=== PATIENT | female | born 1980 | race Two or more races ===

== ENCOUNTER 2018-06-17 10:30 | Emergency (ER) | payer OTHER ==
[2018-06-17 10:38] VITALS: BP 124/67; PULSE 71; TEMP 97.8; BMI 24.3
--- NOTE | 2018-06-17 11:42 | PDOC ---
History of Present Illness - General Chief Complaint: Injury Stated Complaint: INJURY Time Seen by Provider: 06/17/18 10:52 History Source: Patient Exam Limitations: No Limitations - History of Present Illness Initial Comments: 06/17/18 11:37 twisted right ankle yesterday no deformity or swelling will xray to r/o fracture ibuprofen for pain Past History - Past Medical History Allergies/Adverse Reactions: Allergies Allergy/AdvReac Type Severity Reaction Status Date / Time No Known Allergies Allergy Verified 06/17/18 10:37 Home Medications: Ambulatory Orders NK [No Known Home Medication] 06/19/16 COPD: No - Immunization History Immunization Up to Date: Yes - Suicide/Smoking/Psychosocial Hx Smoking Status: No Smoking History: Never smoked Have you smoked in the past 12 months: No Number of Cigarettes Smoked Daily: 0 Hx Alcohol Use: No Drug/Substance Use Hx: No Substance Use Type: None Trauma Specific PMHX - Complaint Specific PMHX Arthritis: No Back Injury: No Neck Injury: No Hx Sacro Iliac Joint Dysfunction: No Review of Systems - Review of Systems Able to Perform ROS?: Yes Musculoskeletal: Yes: Symptoms Reported *Physical Exam - Vital Signs Last Vital Signs Temp Pulse Resp BP Pulse Ox 97.8 F 71 18 124/67 100 06/17/18 10:36 06/17/18 10:36 06/17/18 10:36 06/17/18 10:36 06/17/18 10:36 - Physical Exam General Appearance: Yes: Nourished, Appropriately Dressed HEENT: positive: EOMI, ANA, Normal Voice, Pharynx Normal, TM Erythema ( bilateral erythema ). negative: Nasal Congestion, Rhinorrhea Neck: positive: Supple. negative: Tender Respiratory/Chest: positive: Lungs Clear, Normal Breath Sounds. negative: Chest Tender, Respiratory Distress Cardiovascular: positive: Regular Rhythm, Regular Rate Gastrointestinal/Abdominal: positive: Normal Bowel Sounds, Soft. negative: Tender Musculoskeletal: positive: Normal Inspection Extremity: positive: Normal Capillary Refill, Normal Inspection, Normal Range of Motion, Tender (lateral malleolus ttp no swelling, FROM of the ankle nv intact ) Integumentary: positive: Normal Color, Dry, Warm Neurologic: positive: Fully Oriented, Alert, Normal Mood/Affect, Normal Response , Motor Strength 5/5 Procedures - Splinting Oleksandr Bandage: yes, 4" ED Treatment Course - RADIOLOGY Radiology Studies Ordered: Category Date Time Status ANKLE & FOOT-RIGHT* [RAD] Stat Radiology 06/17/18 11:16 Completed Medical Decision Making - Medical Decision Making 06/17/18 12:05 cc: ankle injury to the right ankle will get xray to r/o fracture oleksandr wrap applied, pt ambualting freely no distress *DC/Admit/Observation/Transfer Diagnosis at time of Disposition: Mild ankle sprain Qualifiers: Encounter type: initial encounter Laterality: right Qualified Code(s): S93.401A - Sprain of unspecified ligament of right ankle, initial encounter - Discharge Dispostion Disposition: HOME Condition at time of disposition: Good - Referrals Referrals: Buzz Chavez MD [Staff Physician] - - Patient Instructions Additional Instructions: elevate and apply ice every 2hrs for 20 minutes use the oleksandr wrap at all times except to bathe weight bear as tolerated, if it hurts stay off it follow with or the orthopedist for follow up if symptoms worsen or persist beyond one week take motrin or advil (over the counter) for pain as directed - Post Discharge Activity Forms/Work/School Notes: Back to Work
== END 2018-06-17 12:10 | disposition home or self-care (01) ==
LOC: JERFT 10:30
DX: S93.401A Sprain of unspecified ligament of right ankle, initial encounter (principal); X50.1XXA Overexertion from prolonged static or awkward postures, initial encounter; Y93.89 Activity, other specified; Y92.89 Other specified places as the place of occurrence of the external cause; Y99.0 Civilian activity done for income or pay
CPT/HCPCS: 73610-TC-RT-FY; 73630-TC-RT-FY; 99281-25

== ENCOUNTER 2018-08-13 13:01 | Emergency (ER) | payer OTHER ==
[2018-08-13 13:17] VITALS: BP 144/87; PULSE 90; TEMP 98.2; BMI 23.6
--- NOTE | 2018-08-13 14:46 | PDOC ---
History of Present Illness - General Chief Complaint: Laceration Stated Complaint: INJURY Time Seen by Provider: 08/13/18 13:18 History Source: Patient Exam Limitations: No Limitations Past History - Past Medical History Allergies/Adverse Reactions: Allergies Allergy/AdvReac Type Severity Reaction Status Date / Time No Known Allergies Allergy Verified 08/13/18 13:17 Home Medications: Ambulatory Orders NK [No Known Home Medication] 06/19/16 COPD: No - Immunization History Immunization Up to Date: Yes - Suicide/Smoking/Psychosocial Hx Smoking Status: No Smoking History: Never smoked Have you smoked in the past 12 months: No Number of Cigarettes Smoked Daily: 0 Hx Alcohol Use: No Drug/Substance Use Hx: No Substance Use Type: None *Physical Exam - Vital Signs Last Vital Signs Temp Pulse Resp BP Pulse Ox 98.2 F 90 20 144/87 99 08/13/18 13:16 08/13/18 13:16 08/13/18 13:16 08/13/18 13:16 08/13/18 13:16 - Physical Exam General Appearance: No: Apparent Distress HEENT: positive: Other (Around 2 cm vertical irregular laceration along R upper lip which crosses vermilion repair, no head/neck trauma noted) Neck: positive: Supple Respiratory/Chest: positive: Lungs Clear, Normal Breath Sounds. negative: Respiratory Distress Cardiovascular: positive: Regular Rhythm, Regular Rate, S1, S2. negative: Murmur Moderate Sedation - Procedure Monitoring Vital Signs: Procedure Monitoring Vital Signs Temperature 98.2 F 08/13/18 13:16 Pulse Rate 90 08/13/18 13:16 Respiratory Rate 20 08/13/18 13:16 Blood Pressure 144/87 08/13/18 13:16 O2 Sat by Pulse Oximetry (%) 99 08/13/18 13:16 Procedures - Laceration/Wound Repair Lip Wound Length: to 2.5 cm Wound Explored: clean Wound's Depth, Shape: irregular Irrigated w/ Saline: Yes Betadine Prep: No Anesthesia: 1% Lidocaine Wound Debrided: moderate Wound Repaired With: Sutures Suture Size/Type: 6:0, nylon Number of Sutures: 4 Deep Layer Suture Size/Type: 5:0, other (polysorb) Number of Deep Layer Sutures: 3 Sterile Dressing Applied: No Medical Decision Making - Medical Decision Making 38 y/o F with no sig pmh presents with upper lip laceration after tripping and falling forward. Denies head/neck trauma, LOC. Patient is UTD on tetanus. Laceration repaired Advised to return in 10 days for suture removal. 08/13/18 14:48 *DC/Admit/Observation/Transfer Diagnosis at time of Disposition: Laceration of lip Qualifiers: Encounter type: initial encounter Qualified Code(s): S01.511A - Laceration without foreign body of lip, initial encounter - Discharge Dispostion Disposition: HOME Condition at time of disposition: Good Decision to Admit order: No - Referrals - Patient Instructions Printed Discharge Instructions: DI for Laceration Repair Additional Instructions: Thank you for choosing [facility]. It was a pleasure taking care of you. Keep site clean/dry for next 24 hours Return in 10 days for suture removal Return to the Emergency Department if your symptoms worsen or persist, you have fever, pustular discharge, bleeding, redness or other concerning symptoms. - Post Discharge Activity
== END 2018-08-13 14:51 | disposition home or self-care (01) ==
LOC: JERFT 13:01
PROC: 0CQ03ZZ Repair Upper Lip, Percutaneous Approach (ICD-10-PCS; principal; 2018-08-13)
DX: S01.511A Laceration without foreign body of lip, initial encounter (principal); W18.39XA Other fall on same level, initial encounter; Y93.89 Activity, other specified; Y92.89 Other specified places as the place of occurrence of the external cause; Y99.8 Other external cause status
CPT/HCPCS: 99281-25

== ENCOUNTER 2018-08-18 10:00 | Emergency (ER) | payer OTHER ==
[2018-08-18 10:23] VITALS: BP 120/73; PULSE 71; TEMP 98.1; BMI 23.6
--- NOTE | 2018-08-18 10:53 | PDOC ---
Suture Removal/Wound Check HPI - History of Present Illness Chief Complaint: Suture/Staple Removal(Here) Stated Complaint: SUTURE/STAPLE PROBLEM Time Seen by Provider: 08/18/18 10:45 History Source: Yes: Patient Exam Limitations: Yes: No Limitations Treated at: [facility] Date of Last ED visit: 08/13/18 - Previous ED Treatment Type of procedure performed on last visit: Yes: Laceration Repair Tetanus Immunization: Yes: Up to Date Antibiotics Prescribed: Yes - Onset of Previous Treatment Date of Occurence: 08/13/18 Past History - Past Medical History Allergies/Adverse Reactions: Allergies Allergy/AdvReac Type Severity Reaction Status Date / Time No Known Allergies Allergy Verified 08/13/18 13:17 Home Medications: Ambulatory Orders NK [No Known Home Medication] 06/19/16 COPD: No - Immunization History Immunization Up to Date: Yes - Suicide/Smoking/Psychosocial Hx Smoking Status: No Smoking History: Never smoked Have you smoked in the past 12 months: No Number of Cigarettes Smoked Daily: 0 Hx Alcohol Use: No Drug/Substance Use Hx: No Substance Use Type: None Suture Removal/Wound Check PE - Physical Exam Laceration/Wound Check Symptoms: reports: None Pain Intensity: 0 Current Severity Level: None Maximum Severity Level: None Location of Laceration/Wound: right: Lip (laceration to right upper side of lip) Pain Radiation: None *Review of Systems - Review of Systems Able to Perform ROS?: Yes Constitutional: No: Fever HEENTM: No: Symptoms Reported, Eye Pain, Recent change in vision Respiratory: No: Symptoms reported Cardiac (ROS): No: Symptoms Reported ABD/GI: No: Symptoms Reported Integumentary: Yes: Other (laceration to right side of upper lip with sutures in place. mild opening of laceration wound). No: Erythema All Other Systems: Reviewed and Negative *Physical Exam - Vital Signs Last Vital Signs Temp Pulse Resp BP Pulse Ox 98.1 F 71 16 120/73 100 08/18/18 10:20 08/18/18 10:20 08/18/18 10:20 08/18/18 10:20 08/18/18 10:20 - Physical Exam General Appearance: Yes: Nourished, Appropriately Dressed. No: Apparent Distress HEENT: positive: ANA, Normal ENT Inspection Neck: positive: Supple Respiratory/Chest: negative: Respiratory Distress, Accessory Muscle Use Cardiovascular: positive: Regular Rhythm, Regular Rate Gastrointestinal/Abdominal: negative: Tender Integumentary: positive: Other (well healing 2cm laceration with [address] small 1mm area of wound dehiscense to bottom of laceration. no evidence of wound infection) Moderate Sedation - Procedure Monitoring Vital Signs: Procedure Monitoring Vital Signs Temperature 98.1 F 08/18/18 10:20 Pulse Rate 71 08/18/18 10:20 Respiratory Rate 16 08/18/18 10:20 Blood Pressure 120/73 08/18/18 10:20 O2 Sat by Pulse Oximetry (%) 100 08/18/18 10:20 Medical Decision Making - Medical Decision Making 08/18/18 11:42 Patient with no significant past medication present for wound check status post presented 5 days ago with laceration to right side of upper lip requiring suture placement. Exam shows 2 cm laceration to right side of upper lip with [address] Small area of 1 mm wound dehiscence the bottom of laceration which patient requires closing. Patient advice wound is 5 days old and cannot be closed with sutures. Patient indicated on home wound care. Patient advised to follow-up in 5 days for suture removal as instructed. *DC/Admit/Observation/Transfer Diagnosis at time of Disposition: Laceration of lip Qualifiers: Encounter type: subsequent encounter Qualified Code(s): S01.511D - Laceration without foreign body of lip, subsequent encounter - Discharge Dispostion Disposition: HOME Condition at time of disposition: Stable Decision to Admit order: No - Referrals - Patient Instructions Printed Discharge Instructions: DI for Suture Removal Additional Instructions: Apply bacitracin to wound twice a day. Follow-up in 5 days for suture removal. - Post Discharge Activity
== END 2018-08-18 10:56 | disposition home or self-care (01) ==
LOC: JERFT 10:00
DX: T81.33XA Disruption of traumatic injury wound repair, initial encounter (principal)
CPT/HCPCS: 99281-25

== ENCOUNTER 2018-08-25 03:41 | Emergency (ER) | payer OTHER ==
[2018-08-25 03:51] VITALS: BP 107/62; PULSE 81; TEMP 98; BMI 27.3
--- NOTE | 2018-08-25 04:19 | PDOC ---
Suture Removal/Wound Check HPI - History of Present Illness History Source: Yes: Patient Exam Limitations: Yes: No Limitations Date of Last ED visit: 08/13/18 - Previous ED Treatment Type of procedure performed on last visit: Yes: Laceration Repair Antibiotics Prescribed: No <Narda Chang - Last Filed: 08/25/18 04:27> <Solange Medellin - Last Filed: 08/25/18 23:04> - History of Present Illness Chief Complaint: Suture/Staple Removal(Here) Stated Complaint: SUTURE REMOVAL Time Seen by Provider: 08/25/18 03:52 Past History - Past Medical History COPD: No - Immunization History Immunization Up to Date: Yes - Suicide/Smoking/Psychosocial Hx Smoking Status: No Smoking History: Never smoked Have you smoked in the past 12 months: No Number of Cigarettes Smoked Daily: 0 Information on smoking cessation initiated: No Hx Alcohol Use: No Drug/Substance Use Hx: No Substance Use Type: None <Narda Chang - Last Filed: 08/25/18 04:27> <Solange Medellin - Last Filed: 08/25/18 23:04> - Past Medical History Allergies/Adverse Reactions: Allergies Allergy/AdvReac Type Severity Reaction Status Date / Time No Known Allergies Allergy Verified 08/25/18 03:49 Home Medications: Ambulatory Orders NK [No Known Home Medication] 06/19/16 Suture Removal/Wound Check PE - Physical Exam Laceration/Wound Check Symptoms: denies: None, Pain, Fever, Chills, Redness, Discharge, Worsening Location of Laceration/Wound: right: Lip (healed laceration to R upper lip) <Narda Chang - Last Filed: 08/25/18 04:27> *Physical Exam - Vital Signs Last Vital Signs Temp Pulse Resp BP Pulse Ox 98.0 F 81 18 107/62 100 08/25/18 03:49 08/25/18 03:49 08/25/18 03:49 08/25/18 03:49 08/25/18 03:49 <Narda Chang - Last Filed: 08/25/18 04:27> - Vital Signs Last Vital Signs Temp Pulse Resp BP Pulse Ox 98.0 F 81 18 107/62 100 08/25/18 03:49 08/25/18 03:49 08/25/18 03:49 08/25/18 03:49 08/25/18 03:49 <Solange Medellin - Last Filed: 08/25/18 23:04> Moderate Sedation - Procedure Monitoring Vital Signs: Procedure Monitoring Vital Signs Temperature 98.0 F 08/25/18 03:49 Pulse Rate 81 08/25/18 03:49 Respiratory Rate 18 08/25/18 03:49 Blood Pressure 107/62 08/25/18 03:49 O2 Sat by Pulse Oximetry (%) 100 08/25/18 03:49 <Narda Chang - Last Filed: 08/25/18 04:27> - Procedure Monitoring Vital Signs: Procedure Monitoring Vital Signs Temperature 98.0 F 08/25/18 03:49 Pulse Rate 81 08/25/18 03:49 Respiratory Rate 18 08/25/18 03:49 Blood Pressure 107/62 08/25/18 03:49 O2 Sat by Pulse Oximetry (%) 100 08/25/18 03:49 <Solange Medellin - Last Filed: 08/25/18 23:04> Medical Decision Making - Medical Decision Making 38 y/o F presents for suture removal s/p laceration repair 08/13. Patient states she removed 3 stitches on her own yesterday as she couldn't wait any longer. Denies fever, discharge, bleeding Remaining sutures removed Wound healed Stable for dc 08/25/18 04:20 <Narda Chang - Last Filed: 08/25/18 04:27> - Medical Decision Making The patient was seen and evaluated in conjunction with midlevel provider under my direct supervision, ancillary studies were reviewed. I agree with the plan as outlined by ROBBIN Chang. HPI as outlined. 08/25/18 23:03 <Solange Medellin - Last Filed: 08/25/18 23:04> *DC/Admit/Observation/Transfer <Narda Chang - Last Filed: 08/25/18 04:27> <Solange Medellin - Last Filed: 08/25/18 23:04> Diagnosis at time of Disposition: Visit for suture removal - Discharge Dispostion Disposition: HOME Condition at time of disposition: Stable - Patient Instructions Printed Discharge Instructions: DI for Suture Removal
== END 2018-08-25 04:31 | disposition home or self-care (01) ==
LOC: JER 03:41
DX: Z48.02 Encounter for removal of sutures (principal)
CPT/HCPCS: 99281-25

== ENCOUNTER → 2018-12-17 | Emergency (ER) | payer OTHER | LOC: JER 12:30 ==

== ENCOUNTER 2018-12-28 07:58 | Emergency (ER) | payer SELFPAY ==
[2018-12-28 08:07] VITALS: BP 140/83; PULSE 98; TEMP 98.4; BMI 24.6
[2018-12-28] MEDS ORDERED: ACETAMINOPHEN 325 MG TABLET (FP) PO ONE (08:29)
[2018-12-28] MEDS ORDERED: ACETAMINOPHEN 325 MG TABLET (FP) ONE (08:32)
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
== END 2018-12-28 10:55 | disposition home or self-care (01) ==
LOC: JERFT 07:58
DX: M25.562 Pain in left knee (principal); Y04.2XXA Assault by strike against or bumped into by another person, initial encounter; W18.39XA Other fall on same level, initial encounter; Y93.89 Activity, other specified; Y92.89 Other specified places as the place of occurrence of the external cause; Y99.8 Other external cause status; Y07.03 Male partner, perpetrator of maltreatment and neglect
CPT/HCPCS: 73562-TC-LT-FY; 84703; 99281-25

== ENCOUNTER 2019-01-29 18:33 | Emergency (ER) | payer OTHER ==
[2019-01-29 19:00] VITALS: BP 114/67; PULSE 74; TEMP 98.5; BMI 24.6
[2019-01-29] MEDS ORDERED: KETOROLAC TROMETHAMINE 30 MG/1 ML VIAL IM ONE (19:11)
[2019-01-29] MEDS ORDERED: KETOROLAC TROMETHAMINE 30 MG/1 ML VIAL ONE (19:16)
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
== END 2019-01-29 19:30 | disposition home or self-care (01) ==
LOC: JERFT 18:33 → JER 18:33 → JERFT 19:30
PROC: 2W3RXYZ Immobilization of Left Lower Leg using Other Device (ICD-10-PCS; principal; 2019-01-29)
PROC: 3E0233Z Introduction of Anti-inflammatory into Muscle, Percutaneous Approach (ICD-10-PCS; 2019-01-29)
DX: M25.562 Pain in left knee (principal); X50.1XXA Overexertion from prolonged static or awkward postures, initial encounter; Y93.01 Activity, walking, marching and hiking; Y92.89 Other specified places as the place of occurrence of the external cause; Y99.8 Other external cause status
CPT/HCPCS: 29530; 96372; 99281-25

== ENCOUNTER 2019-03-17 10:46 | Day surgery (SDC) | payer OTHER ==
[2019-03-17 11:30] VITALS: BMI 24.6
[2019-03-17] MEDS ORDERED: EPINEPHrine 1:1,000 1 MG/1 ML - 30ML VIAL (INJECTION) ONE (13:17)
[2019-03-17] MEDS ORDERED: Pregnancy Control Solution IV ONE ×2 (13:20→13:35)
[2019-03-17] MEDS ORDERED: SODIUM CHLORIDE 0.9% P/F 10 ML VIAL IJ ONE (13:36)
[2019-03-17] MEDS ORDERED: MIDAZOLAM HCL 2 MG/2 ML SINGLE DOSE VIAL ONE (13:36)
[2019-03-17] MEDS ORDERED: BUPIVACAINE LIPOSOME/PF (EXPAREL) 266 MG/20 ML VIAL ONE (13:36)
[2019-03-17] MEDS ORDERED: PROPOFOL 20 ML ONE ×3 (14:15→15:17)
[2019-03-17] MEDS ORDERED: SUCCINYLCHOLINE CHLORIDE 200 MG/10 ML VIAL ONE (14:15)
--- NOTE | 2019-03-17 14:23 | OP ---
Operative Note - Note: Operative Date: 03/17/19 Pre-Operative Diagnosis: ACL tear Operation: ACL reconstruction Post-Operative Diagnosis: Same as Pre-op Surgeon: Thomas Grimaldo Major Gifts Officer: Beena Antoine Anesthesia: General Operative Report Dictated: Yes
[2019-03-17] MEDS ORDERED: ONDANSETRON 4 MG/2 ML VIAL ONE (14:29)
[2019-03-17] MEDS ORDERED: DEXAMETHASONE SOD PHOSPHATE 4 MG/1 ML VIAL ONE (14:29)
[2019-03-17] MEDS ORDERED: ceFAZolin SODIUM 1 GM VIAL ONE (14:29)
[2019-03-17] MEDS ORDERED: HYDROmorphone HCL/PF 1 MG/ML AMP ONE (16:43)
[2019-03-17] MEDS ORDERED: PROMETHAZINE HCL 25 MG/1 ML VIAL IVPUSH PRN (16:59)
[2019-03-17] MEDS ORDERED: oxyCODONE HCL 5 MG TABLET PO PRN ×2 (16:59)
[2019-03-17] MEDS ORDERED: ONDANSETRON 4 MG/2 ML VIAL IVPUSH PRN (16:59)
[2019-03-17] MEDS ORDERED: ACETAMINOPHEN 325 MG TABLET (FP) PO SCH (17:00)
[2019-03-17] MEDS ORDERED: PROMETHAZINE HCL 25 MG/1 ML VIAL ONE (17:14)
[2019-03-17 18:15] VITALS: TEMP 98
[2019-03-17 19:58] VITALS: BP 112/61; PULSE 60
--- NOTE | 2019-03-17 19:59 | OP ---
DATE OF OPERATION: 03/17/2019 PREOPERATIVE DIAGNOSIS: Left knee acromioclavicular rupture, medial meniscal tear. POSTOPERATIVE DIAGNOSIS: Left knee acromioclavicular rupture, medial meniscal tear. PROCEDURE: Left knee anterior cruciate ligament reconstruction utilizing patellar tendon autograft, medial meniscal repair. SURGEON: Thomas Grimaldo M.D. CRIMPING MACHINE OPERATOR FOR METAL: Beena Antoine PA-C, whose skillful assistance was necessary for safe and timely performance of this procedure. Ms. Antoine was able to provide limb positioning, drive the camera, assist in graft preparation and harvest, as well as the insertion of the graft and fixation hardware. ANESTHESIA: Regional plus general. POSTOPERATIVE CONDITION: Stable. COMPLICATIONS: None. IMPLANTS: Ar[employer]rex TightRope x1, Arthrex BioComposite interference screw 7 x 24 mm x1, Ar[employer]rex SwiveLock x1. INDICATION: This is a pleasant 38-year-old female who has suffered a twisting injury to the knee. She was found to have an ACL rupture. Treatment options were discussed including nonoperative and operative care. Operative risks were reviewed in detail including bleeding, infection, neurovascular injury, need for further surgery, postoperative pain and stiffness, graft failure to heal or rerupture. We discussed medical risks such as heart attack, stroke, DVT, PE, and . I addressed the use of perioperative antibiotics and DVT prophylaxis. I addressed all the patient's questions and concerns. She voiced understanding and elected to proceed. DESCRIPTION OF PROCEDURE: The patient was brought to the operating room after administration of her regional block in the preoperative holding area. Patient was then placed supine on the operating room table, the left lower extremity was prepped and draped in the usual sterile fashion after administration of anesthesia. Preoperative examination demonstrated full range of motion including 3 degrees of hyperextension and full flexion. She has positive Kole's, grossly positive pivot shift. She has 1+ LCL from her endpoint. The MCL is stable and the PCL is stable. The patient's knee was then marked out. The incision was planned out over the patellar tendon. This was then carried down through skin and subcutaneous tissue. Electrocautery was used to maintain hemostasis. The paratenon was split along the fibers of the patellar tendon. The middle third of the patellar tendon was then chosen and incised with a double-bladed knife 10 mm wide. The oscillating saw was then used to excise triangular bone block 10 x 20 mm in both the tibial and the femoral sides. The graft was then sized for 90 mm length x 9.5 mm diameter on the femoral side and 10 mm on the tibial side. The graft was then prepared on the back table, fastening 1 TightRope through the proximal end and 2 sutures, FiberWire, through the distal end. Concurrently, the arthroscope was inserted into the knee. Examination of patellofemoral joint demonstrated mild superficial articular wear. Passing arthroscope to sternal notch demonstrated the remnants of the ACL with no attachment to the lateral wall of the notch. The arthroscope was passed to medial compartment. Here, medial portal was established with spinal needle localization. The medial compartment was inspected, demonstrating no articular lesions. Meniscus initially appeared satisfactory, however probe was passed and the posterior horn of the medial meniscus was found to have a peripheral tear which was unstable. Initially meniscus was debrided using the shaver. Two Fast-Fix 360 devices were then inserted in horizontal mattress fashion along the posterior horn, securing it back into place. Meniscus was now probed and found to be stable. At this time attention was turned back into the notch. The lateral compartment was dissected, demonstrating no meniscal and no articular lesions. The meniscus was probed and found to be stable. In the notch, a remnant of the ACL was debrided. The anatomic origin of the ACL on the femur was identified at the lateral bifurcate ridge. The probe guide was inserted, and small incision was made laterally in the distal thigh with blunt spreading down to the femur. The trocar was then inserted down to the level of the bone. The FlipCutter device was now drilled into the knee. FlipCutter position was verified and was satisfactory. The FlipCutter was now tunneled and a 9.5 x 25 mm socket was created. The passing suture was placed. Tibial drill guide was now inserted. Here, the guidepin was drilled into the center of the anatomic footprint. This was now overreamed with asize 10 reamer. Passing suture was now passed through here as well. Now, the passing suture was used to retrieve the TightRope through the femoral socket. It was directly visualized. We passed the button through the aperture and seated firmly on the cortex. The graft was now toggled into the femoral socket. The knee was now cycled. The guidepin was now inserted anterior to the tibial bone block. The knee was tapped and a size 7 was chosen. The interference screw was then inserted, achieving excellent bite. The choice was then made to provide backup fixation. A SwiveLock anchor was drilled, tapped and inserted, securing the sutures from the tibial bone block. The knee was then passed through Kole maneuver and was found to be stable. The excess fluid was withdrawn from the knee. The paratenon was approximated using 0 Vicryl. The bone graft from the graft preparation was loaded back into the patella and secured in place with 0 Vicryl as well. The subcutaneous tissue was then approximated using 2-0 Vicryl and 3-0 Vicryl. The skin was closed using 3-0 nylon. Sterile dressing was then placed. The patient was awakened and transferred to recovery room in stable condition. Gabriela BIGGS/[id number] MTDD
== END 2019-03-17 19:50 | disposition home or self-care (01) ==
LOC: FASU 10:46
PROVIDERS: ATTEND Orthopaedic Surgery Sports Medicine
PROC: 0LBR0ZZ Excision of Left Knee Tendon, Open Approach (ICD-10-PCS; 2019-03-17)
PROC: 0SBD4ZZ Excision of Left Knee Joint, Percutaneous Endoscopic Approach (ICD-10-PCS; 2019-03-17)
PROC: 0MRP47Z Replacement of Left Knee Bursa and Ligament with Autologous Tissue Substitute, Percutaneous Endoscopic Approach (ICD-10-PCS; principal; 2019-03-17 14:48)
DX: S83.512A Sprain of anterior cruciate ligament of left knee, initial encounter (principal); S83.242A Other tear of medial meniscus, current injury, left knee, initial encounter; X58.XXXA Exposure to other specified factors, initial encounter; Y93.9 Activity, unspecified; Y92.9 Unspecified place or not applicable
CPT/HCPCS: 29881; 29888; C1713; 84703

== ENCOUNTER 2019-03-26 19:40 | Emergency (ER) | payer OTHER ==
[2019-03-26 19:54] VITALS: BP 113/69; PULSE 84; TEMP 98.8; BMI 24.6
[2019-03-26] MEDS ORDERED: SODIUM CHLORIDE 1,000 ML IV ONE (20:02)
[2019-03-26] MEDS ORDERED: morphine CARPU-JECT 2 MG/1 ML DISP.SYRIN IVPUSH ONE (20:02)
[2019-03-26] MEDS ORDERED: ONDANSETRON 4 MG/2 ML VIAL IVPB ONE (20:02)
[2019-03-26] MEDS ORDERED: ONDANSETRON 4 MG/2 ML VIAL ONE (20:15)
[2019-03-26] MEDS ORDERED: morphine SULFATE 4 MG/ML VIAL ONE (20:33)
[2019-03-26 20:50] LABS: BASO % 0.4 % (0-2.0); EOS % 1.8 % (0-4.5); HEMATOCRIT 35.6 % (32.4-45.2); HEMOGLOBIN 11.8 GM/dl (10.7-15.3); LYMPH % 22.5 % (8-40); MCH 27.8 pg (25.7-33.7); MCHC 33.2 g/dl (32.0-36.0); MEAN CELL VOLUME 83.6 fl (80-96); MEAN PLT VOLUME 8.1 fl (7.5-11.1); MONO % 7.5 % (3.8-10.2); NEUT % 67.8 % (42.8-82.8); PLATELET COUNT 331 K/MM3 (134-434); RBC 4.25 M/mm3 (3.60-5.2); RDW 14.1 % (11.6-15.6); WHITE BLOOD COUNT 9.2 K/mm3 (4.0-10.8)
[2019-03-26 21:09] LABS: ALBUMIN 3.6 g/dl (3.4-5.0); BILIRUBIN,TOTAL 0.4 mg/dl (0.2-1); CALCIUM 9.2 mg/dl (8.5-10); CREATININE 0.7 mg/dl (0.55-1.3); EPITHELIAL CELLS FEW /hpf; POTASSIUM 4.1 mmol/L (3.5-5.1); TOT PROT 7.1 g/dl (6.4-8.2)
--- NOTE | 2019-03-26 21:27 | PDOC ---
Documentation entered by Amara Franco SCRIBE, acting as scribe for Beth Joyner MD. Beth Joyner MD: This documentation has been prepared by the Salvador osorio Aiswarya, SCRIBE, under my direction and personally reviewed by me in its entirety. I confirm that the documentation accurately reflects all work, treatment, procedures, and medical decision making performed by me. History of Present Illness - General Chief Complaint: Pain Stated Complaint: LEFT KNEE PAIN Time Seen by Provider: 03/26/19 19:46 History Source: Patient Exam Limitations: No Limitations - History of Present Illness Initial Comments: 03/26/19 20:40 The patient is a 38 year old female, with no significant PMH, who presents to the emergency department with left knee pain that began last night. The patient states she had a left meniscus surgery on March 17 and endorses associated symptoms of swelling, erythema and pain today. Patient states she only took her oxycodone in the morning because states she gets chills and starts vomiting when she takes it. The patient denies chest pain, shortness of breath, headache and dizziness.Denies nausea, diarrhea and constipation. Denies dysuria, frequency, urgency and hematuria. PAST MEDICAL HISTORY: no significant history PAST SURGICAL HISTORY: no significant history FAMILY HISTORY: no pertinent history SOCIAL HISTORY: Pt lives with family and is employed. MEDICATIONS: reviewed ALLERGIES: As per nursing notes Adult ROS General: No fevers or chills, no weakness, no weight loss HEENT: No change in vision. No sore throat,. No ear pain CardioVascular: No chest pain or shortness of breath Respiratory:No cough, or wheezing. Gastrointestinal: no nausea, vomiting, diarrhea or constipation, No rectal bleeding Genitourinary: No dysuria, hematuria, or frequency Musculoskeletal: +Knee swelling. Neurologic: No headache, vertigo, dizziness or loss of consciousness Psychiatric: nor depression Skin: No rashes or easy bruising Endocrine: no increased thirst or abnormal weight change Allergic: no skin or latex allergy All other systems reviewed and normal Adult Exam: General: Well-nourished well-developed individual, no acute distress HEENT: Throat: Normal, tonsils normal, no erythema or exudate Neck: Supple, no meningeal signs, no lymphadenopathy Eyes::Pupils equal reactive and round, extraocular motion intact Chest: Nontender to palpation Cardiac: S1-S2 normal, regular rate and rhythm, no murmurs rubs or gallops Respiratory: Lungs clear to auscultation bilateral Abdomen: +Epigastric tenderness on palpation. Extremities: Warm, dry, no cyanosis, clubbing, or edema Skin: + Left knee mild swelling erythema and increased warmth . Incision healing well. No dehiscence or purulent discharge. Limited ROM of because of swelling and discomfort. Neurovascular intact. Neuro: Alert and oriented x3, nonfocal exam, grossly intact, normal gait Psych: Normal mood and affect 03/26/19 21:17 Dr. Grimaldo came in and aspirated patient's knee and slowly of fluid was sent for crystals, culture, cell count.. Patient's CBC was normal. Patient discharged will follow-up with Dr. Grimaldo Past History - Past Medical History Allergies/Adverse Reactions: Allergies Allergy/AdvReac Type Severity Reaction Status Date / Time No Known Allergies Allergy Verified 03/26/19 19:46 Home Medications: Ambulatory Orders Aspirin [Aspirin EC] 81 mg PO BID 03/26/19 Cyclobenzaprine HCl [Flexeril 10 mg] 10 mg PO Q8H PRN 03/26/19 Oxycodone HCl/Acetaminophen [Percocet 5-325 mg Tablet] 1 tab PO Q6H PRN Anemia: No Asthma: No Cancer: No Cardiac Disorders: No CVA: No COPD: No CHF: No Dementia: No Diabetes: No GI Disorders: No Disorders: No HTN: No Hypercholesterolemia: No Liver Disease: No Seizures: No Thyroid Disease: No - Surgical History Abdominal Surgery: No Appendectomy: No Cardiac Surgery: No Cholecystectomy: No Lung Surgery: No Neurologic Surgery: No Orthopedic Surgery: No - Immunization History Immunization Up to Date: Yes - Suicide/Smoking/Psychosocial Hx Smoking Status: No Smoking History: Never smoked Have you smoked in the past 12 months: No Number of Cigarettes Smoked Daily: 0 Information on smoking cessation initiated: No Hx Alcohol Use: No Drug/Substance Use Hx: No Substance Use Type: Alcohol Hx Substance Use Treatment: No *Physical Exam - Vital Signs Last Vital Signs Temp Pulse Resp BP Pulse Ox 98.8 F 84 18 113/69 100 03/26/19 19:40 03/26/19 19:40 03/26/19 19:40 03/26/19 19:40 03/26/19 19:40 ED Treatment Course - LABORATORY CBC & Chemistry Diagram: 03/26/19 20:35 03/26/19 20:35 - ADDITIONAL ORDERS Additional order review: Laboratory Results 03/26/19 03/26/19 03/26/19 20:35 20:35 20:35 Sodium 136 Potassium 4.1 Chloride 101 Carbon Dioxide 29 Anion Gap 6 L BUN 9.0 Creatinine 0.7 Est GFR (CKD-EPI)AfAm 129.19 Est GFR (CKD-EPI)NonAf 111.47 Random Glucose 86 Calcium 9.2 Total Bilirubin 0.4 AST 181 H ALT 204 H Alkaline Phosphatase 67 Total Protein 7.1 Albumin 3.6 Urine Color Yellow Urine Appearance Clear Urine pH >= 9.0 H Urine Protein Negative Urine Glucose (UA) Negative Urine Ketones Negative Urine Blood Trace-intact Urine Nitrite Negative Urine Bilirubin Negative Urine Urobilinogen 1.0 Ur Leukocyte Esterase Negative Urine RBC 5-10 Urine WBC 0-2 Ur Transition Epith Cell Few Urine HCG, Qual Negative 03/26/19 20:35 RBC 4.25 MCV 83.6 MCHC 33.2 RDW 14.1 MPV 8.1 Neutrophils % 67.8 Lymphocytes % 22.5 Monocytes % 7.5 Eosinophils % 1.8 Basophils % 0.4 - Medications Given in the ED: ED Medications Discontinued Medications Generic Name Dose Route Start Last Admin Trade Name Freq PRN Reason Stop Dose Admin Sodium Chloride 1,000 mls @ 1,000 mls/hr 03/26/19 20:02 03/26/19 20:19 Normal Saline - IV 03/26/19 21:01 1,000 mls/hr .Q1H ONE Administration Morphine Sulfate 2 mg 03/26/19 20:02 03/26/19 20:37 Morphine Injection - IVPUSH 03/26/19 20:03 2 mg ONCE ONE Administration Ondansetron HCl 8 mg 03/26/19 20:02 03/26/19 20:19 Zofran Injection IVPB 03/26/19 20:03 8 mg ONCE ONE Administration *DC/Admit/Observation/Transfer Diagnosis at time of Disposition: Knee pain, left Qualifiers: Chronicity: acute Qualified Code(s): M25.562 - Pain in left knee - Discharge Dispostion Disposition: HOME Condition at time of disposition: Stable Decision to Admit order: No - Referrals - Patient Instructions Additional Instructions: Continue to take your pain medications as prescribed for pain. For any further nausea or vomiting take Zofran 1 tablet as often as 3 times a day. Return to the emergency department immediately with ANY new, persistent or worsening symptoms. Continue any medications as previously prescribed by your physician. You should follow up with your primary doctor as soon as possible regarding today's emergency department visit. . Please make sure your doctor reviews the results of your emergency evaluation. Thank you for coming to the Emergency Department today for your care. It was a pleasure to see you today. Please note that your evaluation is INCOMPLETE until you follow-up with your doctor. - Post Discharge Activity
--- NOTE | 2019-03-26 21:30 | PN ---
Progress Note (short form) - Note Progress Note: 38y F here for pain, fever after L knee ACL reconstruction has had discomfort since surgery managed by percocet, cyclobenzaprine pt notes some nausea, vomiting also notes elevated fevers no numbness or tingling PE: AF VSS LLE wounds CDI no drainage moderate effusion focal warmth no erythema calves soft NT ehl fhl ta g s intact sensation intact to LT 2+ DP Labs: wbc 9 esr,crp pending A: L knee s/p ACL reconstruction -reviewed today's findings with pt and her sister -clinical picture does not suggest infection at this time -given focal warmth, effusion, recommended aspiration though this most likely represents normal post op inflammation -pt elected to proceed procedure: knee was prepped with chlorhexidine 18g needle inserted w sterile technique 40cc red translucent fluid withdrawn dressing placed fluid sent for cx, gram stain, cell count, crystals -will follow up labs but do not anticipate need for any intervention at this time -fever most likely due to GI upset/possible viral syndrome/dehydration -partial suture removal performed in ER, will remove remainder at her follow up later this coming week
[2019-03-27 11:52] LABS: BF WBC & OTHER NUCLEATED CELLS 2516 /mm3
[2019-03-27 14:29] LABS: BODY FLUID MACROPHAGES 3 %; BODY FLUID MONOCYTE 12 %; BODY FLUID PLASMA CELL 5 %; BODYL FLD EOSINOPHIL 2 %
== END 2019-03-26 21:41 | disposition home or self-care (01) ==
LOC: FER 19:40
PROC: 3E033NZ Introduction of Analgesics, Hypnotics, Sedatives into Peripheral Vein, Percutaneous Approach (ICD-10-PCS; principal; 2019-03-26)
PROC: 3E033GC Introduction of Other Therapeutic Substance into Peripheral Vein, Percutaneous Approach (ICD-10-PCS; 2019-03-26)
PROC: 3E0337Z Introduction of Electrolytic and Water Balance Substance into Peripheral Vein, Percutaneous Approach (ICD-10-PCS; 2019-03-26)
DX: M25.562 Pain in left knee (principal)
CPT/HCPCS: 36415; 80053; 81003; 81015; 84560; 84703; 85025; 85651; 86140; 87070; 87075; 87205; 89060; 99285-25; J7030

== ENCOUNTER 2019-05-12 21:55 | Emergency (ER) | payer OTHER ==
[2019-05-12 22:04] VITALS: BP 123/85; PULSE 74; TEMP 97.2; BMI 25.4
--- NOTE | 2019-05-12 22:15 | PDOC ---
History of Present Illness - General Chief Complaint: Injury Stated Complaint: HEAD INJURY Time Seen by Provider: 05/12/19 21:58 History Source: Patient Exam Limitations: No Limitations - History of Present Illness Initial Comments: 05/12/19 22:15 This is a 39-year-old female who comes in complaining of a small laceration to her forehead. Patient was walking the dogs when the dogs pulled her over and she hit her head causing a small laceration to her forehead. Patient did not pass out. Patient denies any neck pain, headache, nausea, vomiting or any other complaints. Patient's last tetanus was approximate 5 years ago. Allergies: as per nursing notes Past Medical History: none Social history: Lives with family. No smoking. No alcohol. No illicit drugs. Surgical history: None General: No fevers or chills, no weakness, no weight loss HEENT: No change in vision. No sore throat,. No ear pain forehead laceration+ CardioVascular: no chest discomfort. No shortness of breath Respiratory:No cough, or wheezing. Gastrointestinal: no nausea, vomiting, diarrhea or constipation, No rectal bleeding Genitourinary: No dysuria, hematuria, or frequency Musculoskeletal: No joint or muscle pain or swelling Neurologic: No headache, vertigo, dizziness or loss of consciousness Psychiatric: nor depression Skin: No rashes or easy bruising Endocrine: no increased thirst or abnormal weight change Allergic: no skin or latex allergy All other systems reviewed and normal GENERAL: The patient is awake, alert, and fully oriented, in no acute distress. HEAD: There is approximately a 1 cm superficial laceration to the middle of the forehead. There is no tenderness on palpation of the cervical spine EYES: Pupils equal, round and reactive to light, extraocular movements intact, sclera anicteric, conjunctiva clear. EXTREMITIES:atraumatic, Normal range of motion, no edema. NEUROLOGICAL: Normal speech, normal gait. Nonfocal normal neuro exam PSYCH: Normal mood, normal affect. SKIN: Warm, Dry, normal turgor, no rashes or lesions noted Procedure note laceration repair with Dermabond Laceration was cleaned with peroxide and closed with Dermabond patient tolerated well . Past History - Past Medical History Allergies/Adverse Reactions: Allergies Allergy/AdvReac Type Severity Reaction Status Date / Time No Known Allergies Allergy Verified 03/26/19 19:46 Home Medications: Ambulatory Orders NK [No Known Home Medication] 05/12/19 Anemia: No Asthma: No Cancer: No Cardiac Disorders: No CVA: No COPD: No CHF: No Dementia: No Diabetes: No GI Disorders: No Disorders: No HTN: No Hypercholesterolemia: No Liver Disease: No Seizures: No Thyroid Disease: No - Surgical History Abdominal Surgery: No Appendectomy: No Cardiac Surgery: No Cholecystectomy: No Lung Surgery: No Neurologic Surgery: No Orthopedic Surgery: No - Immunization History Immunization Up to Date: Yes - Suicide/Smoking/Psychosocial Hx Smoking Status: No Smoking History: Never smoked Have you smoked in the past 12 months: No Number of Cigarettes Smoked Daily: 0 Hx Alcohol Use: No Drug/Substance Use Hx: No Substance Use Type: Alcohol Hx Substance Use Treatment: No Trauma Specific PMHX - Complaint Specific PMHX Arthritis: No Back Injury: No Neck Injury: No Hx Sacro Iliac Joint Dysfunction: No *DC/Admit/Observation/Transfer Diagnosis at time of Disposition: Laceration of forehead Qualifiers: Encounter type: initial encounter Qualified Code(s): S01.81XA - Laceration without foreign body of other part of head, initial encounter - Discharge Dispostion Disposition: HOME Condition at time of disposition: Stable Decision to Admit order: No - Referrals - Patient Instructions Printed Discharge Instructions: DI for Laceration Repair With Dermabond Additional Instructions: Review and follow the Dermabond instructions. Keep it dry for 72 hours and do not use any petroleum based products on the glue as it will cause the glue to come off early. For the pain take Tylenol 1000 mg as often this 3-4 times a day if needed. Someone to check on you once tonight during the night. You should be arousable to your normal level of arousability for that time of the night. If you have been vomiting, had a seizure, or you are unable to be aroused or there is a change in your mental status call 911 go back to the nearest emergency department. Followup with your primary care doctor - Post Discharge Activity
== END 2019-05-12 22:24 | disposition home or self-care (01) ==
LOC: FER 21:55
PROC: 0HQ1XZZ Repair Face Skin, External Approach (ICD-10-PCS; principal; 2019-05-12)
DX: S01.81XA Laceration without foreign body of other part of head, initial encounter (principal); W01.198A Fall on same level from slipping, tripping and stumbling with subsequent striking against other object, initial encounter; Y93.K1 Activity, walking an animal; Y92.89 Other specified places as the place of occurrence of the external cause
CPT/HCPCS: 99281-25

== ENCOUNTER 2019-07-18 17:44 | Emergency (ER) | payer OTHER ==
--- NOTE | 2019-07-18 17:48 | PDOC ---
Rapid Medical Evaluation Time Seen by Provider: 07/18/19 17:48 Medical Evaluation: Allergies Allergy/AdvReac Type Severity Reaction Status Date / Time No Known Allergies Allergy Verified 03/26/19 19:46 07/18/19 17:48 I have performed a brief in-person evaluation of this patient. The patient presents with a chief complaint of: post op suture issue breast Pertinent physical exam findings:stable and in NAD, non-focal I have ordered the following: provider to determine The patient will proceed to the ED for further evaluation.
[2019-07-18 17:49] VITALS: BP 119/72; PULSE 90; TEMP 98.3; BMI 25.4
--- NOTE | 2019-07-18 19:30 | PDOC ---
History of Present Illness - General Chief Complaint: Suture/Staple Removal (other) Stated Complaint: SUTURE REMOVAL Time Seen by Provider: 07/18/19 17:48 History Source: Patient Exam Limitations: No Limitations Past History - Travel Traveled outside of the country in the last 30 days: No Close contact w/someone who was outside of country & ill: No - Past Medical History Allergies/Adverse Reactions: Allergies Allergy/AdvReac Type Severity Reaction Status Date / Time No Known Allergies Allergy Verified 07/18/19 17:49 Home Medications: Ambulatory Orders NK [No Known Home Medication] 05/12/19 Anemia: No Asthma: No Cancer: No Cardiac Disorders: No CVA: No COPD: No CHF: No Dementia: No Diabetes: No GI Disorders: No Disorders: No HTN: No Hypercholesterolemia: No Liver Disease: No Seizures: No Thyroid Disease: No - Surgical History Abdominal Surgery: No Appendectomy: No Cardiac Surgery: No Cholecystectomy: No Lung Surgery: No Neurologic Surgery: No Orthopedic Surgery: No - Immunization History Immunization Up to Date: Yes - Psycho Social/Smoking Cessation Hx Smoking Status: No Smoking History: Never smoked Have you smoked in the past 12 months: No Number of Cigarettes Smoked Daily: 0 Hx Alcohol Use: No Drug/Substance Use Hx: No Substance Use Type: Alcohol Hx Substance Use Treatment: No Review of Systems - Review of Systems Able to Perform ROS?: Yes Comments:: 07/18/19 19:36 CONSTITUTIONAL: Absent: fever, chills, diaphoresis, generalized weakness, malaise, loss of appetite SKIN: Present: Suture absent: rash, itching, pallor NEUROLOGIC: Absent: headache, focal weakness or paresthesias, dizziness, unsteady gait, seizure, mental status changes, bladder or bowel incontinence PSYCHIATRIC: Absent: anxiety, depression, suicidal or homicidal ideation, hallucinations. Is the patient limited Macedonian proficient: No *Physical Exam - Vital Signs Last Vital Signs Temp Pulse Resp BP Pulse Ox 98.3 F 90 18 119/72 98 07/18/19 17:45 07/18/19 17:45 07/18/19 17:45 07/18/19 17:45 07/18/19 17:45 - Physical Exam Comments: 07/18/19 19:36 GENERAL: The patient is awake, alert, and fully oriented, in no acute distress. HEAD: Normal with no signs of trauma. EYES: Pupils equal, round and reactive to light, extraocular movements intact, sclera anicteric, conjunctiva clear. EXTREMITIES: Normal range of motion, no edema. NEUROLOGICAL: Normal speech, normal gait. PSYCH: Normal mood, normal affect. SKIN: 1 Prolene suture present under the right breast. No surrounding erythema or purulent fluid. 1 Monocryl tail sticking through the skin along the lateral aspect of the left breast. Warm, Dry, normal turgor, no rashes or lesions noted. Medical Decision Making - Medical Decision Making 07/18/19 19:37 Patient's 39-year-old female who presents to the ER today for suture removal after a bilateral breast reduction and lift on June 16. She states that he had procedure done in [place]. She notes that she did have sutures taken out in [place] however she believes some were left behind. She states that the one under her right breast is not healing well. Denies fevers, chills, pain to the area, redness around the site or purulent drainage. A/P: Suture removal On exam patient with 1 Prolene stitch under the right breast at the surface of the skin. The suture was removed 1 Monocryl tail present at the left lateral breast. This was clipped to be flush with the skin. Absorbable suture Overall no obvious signs of secondary infection. Discharge home with plastics follow-up as needed I discussed the physical exam findings, ancillary test results and final diagnoses with the patient. I answered all of the patient's questions. The patient was satisfied with the care received and felt comfortable with the discharge plan and treatment plan. The Patient agrees to follow up with the primary care physician/specialist within 24-72 hours. Return precautions were given. Discharge - Discharge Information Problems reviewed: Yes Clinical Impression/Diagnosis: Visit for suture removal Condition: Stable Disposition: HOME - Admission No - Follow up/Referral Referrals: Kashif Love MD [Staff Physician] - Bryon Delgadillo MD [Staff Physician] - - Patient Discharge Instructions Patient Printed Discharge Instructions: DI for Suture Removal Additional Instructions: You had your sutures removed today. The other suture that we clipped should dissolve on its own. Should you have any further issues please follow-up with plastics referrals have been provided for you. Return to the ER for fever, worsening pain or if you have any changes in your symptoms. - Post Discharge Activity
== END 2019-07-18 19:36 | disposition home or self-care (01) ==
LOC: JERFT 17:44
DX: Z48.817 Encounter for surgical aftercare following surgery on the skin and subcutaneous tissue (principal); Z48.02 Encounter for removal of sutures
CPT/HCPCS: 99282-25

== ENCOUNTER 2019-10-20 19:36 | Emergency (ER) | payer OTHER ==
[2019-10-20 19:46] VITALS: BP 122/82; PULSE 90; TEMP 100.8; BMI 25.2
--- NOTE | 2019-10-20 20:07 | PDOC ---
Documentation entered by Ezekiel Link SCRIBE, acting as scribe for Natalia John MD. Natalia John MD: This documentation has been prepared by the Fariba osorio Angel, SCRIBE, under my direction and personally reviewed by me in its entirety. I confirm that the documentation accurately reflects all work, treatment, procedures, and medical decision making performed by me. History of Present Illness - General Chief Complaint: Cold Symptoms Stated Complaint: COLD SYMPTOMS Time Seen by Provider: 10/20/19 19:41 History Source: Patient Exam Limitations: No Limitations - History of Present Illness Initial Comments: 10/20/19 20:23 The patient is a 39 year old female with no significant past medical history who presents to the ED with cold symptoms since this morning. Patient states she just returned home from [place] and woke up this morning with a bad cough that progressively got worse. Patient states her son is also sick and says he may have gave her something. Patient also states she has not been vaccinated for the flu. Patient denies any nausea or vomiting Past History - Travel Traveled outside of the country in the last 30 days: Yes If so, where?: [place] - Past Medical History Allergies/Adverse Reactions: Allergies Allergy/AdvReac Type Severity Reaction Status Date / Time No Known Allergies Allergy Verified 07/18/19 17:49 Home Medications: Ambulatory Orders NK [No Known Home Medication] 05/12/19 Anemia: No Asthma: No Cancer: No Cardiac Disorders: No CVA: No COPD: No CHF: No Dementia: No Diabetes: No GI Disorders: No Disorders: No HTN: No Hypercholesterolemia: No Liver Disease: No Seizures: No Thyroid Disease: No - Surgical History Abdominal Surgery: No Appendectomy: No Cardiac Surgery: No Cholecystectomy: No Lung Surgery: No Neurologic Surgery: No Orthopedic Surgery: No - Immunization History Immunization Up to Date: Yes - Psycho Social/Smoking Cessation Hx Smoking Status: No Smoking History: Never smoked Have you smoked in the past 12 months: No Number of Cigarettes Smoked Daily: 0 Hx Alcohol Use: No Drug/Substance Use Hx: No Substance Use Type: Alcohol Hx Substance Use Treatment: No Review of Systems - Review of Systems Able to Perform ROS?: Yes Comments:: 10/20/19 20:23 CONSTITUTIONAL: Absent: +Fever/Chills. no fatigue EYES: Absent: visual changes ENT: Absent: ear pain, no sore throat CARDIOVASCULAR: Absent: chest pain, no palpitations RESPIRATORY: Absent: +cough. no SOB GI: Absent: abdominal pain, no nausea, no vomiting, no constipation, no diarrhea GENITOURINARY: Absent: dysuria, no frequency, no hematuria MUSKULOSKELETAL: Absent: back pain, no arthralgia, no myalgia SKIN: Absent: rash NEURO: Absent: headache *Physical Exam - Vital Signs Last Vital Signs Temp Pulse Resp BP Pulse Ox 100.8 F H 90 16 122/82 100 10/20/19 19:37 10/20/19 19:37 10/20/19 19:37 10/20/19 19:37 10/20/19 19:37 - Physical Exam 10/20/19 20:24 GENERAL: Well-appearing, well-nourished. No apparent distress. HEENT: Normocephalic, atraumatic. PERRL, EOM intact. CARDIOVASCULAR: Normal S1, S2. Regular rate and rhythm. PULMONARY: Clear to auscultation bilaterally. ABDOMEN: Soft, non-distended, non-tender. EXTREMITIES: Normal ROM in all four extremities. No gross deformities. SKIN: Warm, dry. No rash NEUROLOGICAL: No focal neurological deficits. Medical Decision Making - Medical Decision Making 10/20/19 21:13 pt presents to the ED complaining of a one day history of fever, body aches and cough. Son is sick as well. REcent travel to [place]. Symptoms are most consistent with viral URI. Offered tamiflu to patient, who declined. Will discharge patient home with instructions to return to the ED for worsening symptoms. Discharge - Discharge Information Problems reviewed: Yes Clinical Impression/Diagnosis: Viral URI with cough Condition: Good Disposition: HOME - Admission No - Follow up/Referral - Patient Discharge Instructions Patient Printed Discharge Instructions: DI for Viral Upper Respiratory Infection -- Adult Additional Instructions: you came to the ED because of cough, fever and body aches which are most likely caused by a virus. Make sure to drink plenty of fluids and get plenty of rest. you can take ibuprofen for fever and body aches. Return to the ED for severe shortness of breath, fever that is persistent for longer than 7 days, severe nausea and vomiting, other new or worsening symptom. - Post Discharge Activity
== END 2019-10-20 20:13 | disposition home or self-care (01) ==
LOC: FER 19:36
DX: J06.9 Acute upper respiratory infection, unspecified (principal); R05 Cough
CPT/HCPCS: 99283-25

== ENCOUNTER 2019-10-30 10:47 | Emergency (ER) | payer OTHER ==
[2019-10-30 10:57] VITALS: BP 122/75; PULSE 83; TEMP 99.2; BMI 24.5
--- NOTE | 2019-10-30 11:29 | PDOC ---
History of Present Illness - General Chief Complaint: Cold Symptoms Stated Complaint: COUGH,SORE THROAT Time Seen by Provider: 10/30/19 11:00 History Source: Patient Exam Limitations: No Limitations - History of Present Illness Initial Comments: 10/30/19 11:24 CHIEF COMPLAINT: 39-year-old female with no past medical history presents complaining of sore throat and fever with pain on swallowing. HISTORY OF PRESENT ILLNESS: 39-year-old female recently traveled to [place], came back 12 days ago. She picked up her son from her mother's house in [place], and he was ill with fever, sore throat, and cough. She was sick last week and then recovered. This week she presents complaining of recurrent sore throat for the last couple of days, associated with pain on swallowing, and cough. She had a high fever (subjective) this morning. She did not take her temperature. There is no nausea, vomiting, or diarrhea. There is no skin rash. There is no dysuria or frequency. REVIEW OF SYSTEMS: GENERAL/CONSTITUTIONAL: Positive fever and chills. No weakness. No weight change. HEAD, EYES, EARS, NOSE AND THROAT: No visual symptoms. No ear pain or discharge. Positive sore throat with pain on swallowing. See HPI. CARDIOVASCULAR: No chest pain or shortness of breath. RESPIRATORY: Positive cough. No wheezing or hemoptysis. No shortness of breath. GASTROINTESTINAL: No nausea, vomiting, diarrhea or constipation. No rectal bleeding. GENITOURINARY: No dysuria, frequency, or change in urination. MUSCULOSKELETAL: No joint or muscle swelling or pain. No neck or back pain. SKIN AND BREASTS: No rash or easy bruising. NEUROLOGIC: No headache, vertigo, loss of consciousness, or loss of sensation. PSYCHIATRIC: No depression or anxiety. ENDOCRINE: No increased thirst. No abnormal weight change. HEMATOLOGIC/LYMPHATIC: No anemia, easy bleeding, or history of blood clots. ALLERGIC/IMMUNOLOGIC: No hives or skin allergy. No latex allergy. Past History - Past Medical History Allergies/Adverse Reactions: Allergies Allergy/AdvReac Type Severity Reaction Status Date / Time No Known Allergies Allergy Verified 10/30/19 10:48 Home Medications: Ambulatory Orders Amoxicillin/Potassium Clav [Augmentin 875-125 Tablet] 1 each PO BID #20 tablet 10/30/19 Ibuprofen 600 mg PO ONCE 10/30/19 Anemia: No Asthma: No Cancer: No Cardiac Disorders: No CVA: No COPD: No CHF: No Dementia: No Diabetes: No GI Disorders: No Disorders: No HTN: No Hypercholesterolemia: No Liver Disease: No Seizures: No Thyroid Disease: No - Surgical History Abdominal Surgery: No Appendectomy: No Cardiac Surgery: No Cholecystectomy: No Lung Surgery: No Neurologic Surgery: No Orthopedic Surgery: No - Immunization History Immunization Up to Date: Yes - Psycho Social/Smoking Cessation Hx Smoking Status: No Smoking History: Never smoked Have you smoked in the past 12 months: No Number of Cigarettes Smoked Daily: 0 Information on smoking cessation initiated: No Hx Alcohol Use: No Drug/Substance Use Hx: No Substance Use Type: Alcohol Hx Substance Use Treatment: No *Physical Exam - Vital Signs Last Vital Signs Temp Pulse Resp BP Pulse Ox 99.2 F 83 20 122/75 98 10/30/19 10:47 10/30/19 10:47 10/30/19 10:47 10/30/19 10:47 10/30/19 10:47 - Physical Exam 10/30/19 11:26 GENERAL: The patient is awake, alert, and fully oriented, in no acute distress. She has occasional cough. HEAD: Normal with no signs of trauma. EYES: Pupils equal, round and reactive to light, extraocular movements intact, sclera anicteric, conjunctiva clear. ENT: Ears normal. TMs normal. Nares patent. Oropharynx with posterior erythema and whitish exudates bilaterally. No trismus. Uvula is normal and midline. NECK: Normal range of motion, supple without lymphadenopathy, JVD, or masses. LUNGS: Breath sounds equal, clear to auscultation bilaterally. No wheezes, and no crackles. HEART: Regular rate and rhythm, normal S1 and S2 without murmur, rub or gallop. ABDOMEN: Soft, nontender, normoactive bowel sounds. No guarding, no rebound. No masses. EXTREMITIES: Normal range of motion, no edema. No clubbing or cyanosis. No cords, erythema, or tenderness. NEUROLOGICAL: Cranial nerves II through XII grossly intact. Normal speech, normal gait. PSYCH: Normal mood, normal affect. SKIN: Warm, Dry, normal turgor, no rashes or lesions noted. ED Treatment Course - RADIOLOGY Radiology Studies Ordered: Category Date Time Status CHEST PA & LAT [RAD] Stat Radiology 10/30/19 11:21 Ordered Medical Decision Making - Medical Decision Making 10/30/19 12:23 39-year-old female presents with sore throat for a few days, was also sick last week which resolved. Today was having sensation of fever. On examination, the patient has exudative pharyngitis. There is no lymphadenopathy Chest x-ray PA and lateral is clear. This is based upon my initial review. Radiology follow-up procedure activated upon discharge. Rapid strep test is positive for strep. Patient will be treated with Augmentin, Tylenol, and fluids. She is stable for discharge. Discharge - Discharge Information Problems reviewed: Yes Clinical Impression/Diagnosis: Streptococcal pharyngitis Condition: Stable Disposition: HOME - Admission No - Follow up/Referral - Patient Discharge Instructions Patient Printed Discharge Instructions: DI for Strep Throat Additional Instructions: Today you were evaluated for a sore throat and fever symptoms. The strep test is positive. Take Augmentin antibiotic twice a day for 10 days. Take Tylenol 2 tablets every 4 hours as needed for sore throat pain or fever. Drink plenty of fluids to maintain good hydration. Follow-up with your primary care physician. Return to the emergency department for any severe or progressive symptoms. - Post Discharge Activity
[2019-10-30] MEDS ORDERED: ACETAMINOPHEN 325 MG TABLET (FP) PO ONE (12:22)
[2019-10-30] MEDS ORDERED: AMOX TR/POT CLAV 875MG/125MG TABLETS (FP) PO ONE (12:22)
[2019-10-30] MEDS ORDERED: ACETAMINOPHEN 325 MG TABLET (FP) ONE (12:23)
[2019-10-30] MEDS ORDERED: AMOX TR/POT CLAV 875MG/125MG TABLETS (FP) ONE (12:23)
== END 2019-10-30 12:35 | disposition home or self-care (01) ==
LOC: FER 10:47
DX: J02.0 Streptococcal pharyngitis (principal)
CPT/HCPCS: 71046-TC-FY; 87880; 99284-25

== ENCOUNTER 2020-05-16 20:57 | Emergency (ER) | payer OTHER ==
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
[2020-05-16 21:03] VITALS: BMI 27.7
--- OUTSIDE RECORDS SUMMARY | 2020-05-16 21:19 | XMS ---
:1980 Author Organization [facility] Care Team Providers Name Role Phone Jonh Torres Unavailable SONIA ROBLES Unavailable Unavailable Buzz Villalba Unavailable KASIA NUGENT Unavailable Unavailable Ezekiel Mendoza (R) Unavailable Re-disclosure Warning The records that you are about to access may contain information from federally- assisted alcohol or drug abuse programs. If such information is present, then the following federally mandated warning applies: This information has been disclosed to you from records protected by federal confidentiality rules (42 CFR part 2). The federal rules prohibit you from making any further disclosure of this information unless further disclosure is expressly permitted by the written consent of the person to whom it pertains or as otherwise permitted by 42 CFR part 2. A general authorization for the release of medical or other information is NOT sufficient for this purpose. The Federal rules restrict any use of the information to criminally investigate or prosecute any alcohol or drug abuse patient.The records that you are about to access may contain highly sensitive health information, the redisclosure of which is protected by Article 27-F of the [place] State Public Health law. If you continue you may haveaccess to information: Regarding HIV / AIDS; Provided by facilities licensed or operated by the [facility] Office of Mental Health; or Provided by the [facility] Office for People With Developmental Disabilities. If such information is present, then the following [facility] mandated warning applies: This information has been disclosed to you from confidential records which are protected by state law. State law prohibits you from making any further disclosure of this information without the specific written consent of the person to whom it pertains, or as otherwise permitted by law. Any unauthorized further disclosure in violation of state law may result in a fine or long term sentence or both. A general authorization for the release of medical or other information is NOT sufficient authorization for further disclosure. Allergies and Adverse Reactions Type Description Substance Reaction Status Data Source(s ) SYSTEMIC NO KNOWN ALLERGIES NO KNOWN ALLERGIES [facility] Encounters Encounter Providers Location Date Indications Data Source(s ) Outpatient Attender: KASIA 05/04/2020 [facility] Maddie NUGENT 11:27:20 AM Family [facility] EDT Patient admitted. Outpatient Attender: KASIA CASTROEFREN 05/04/2020 11:25:22 AM [facility] Patient admitted. Outpatient Attender: KASIA CASTROEFREN 03/30/2020 02:56:50 PM [facility] Patient admitted. Outpatient Attender: KASIA CASTROEFREN 03/30/2020 02:52:44 PM [facility] Patient admitted. Outpatient Attender: SONIA ROBLES 03/09/2020 05:51:48 PM [facility] Patient admitted. Outpatient 02/22/2020 10:33:31 AM EDT [facility] [place] Patient admitted. Outpatient Attender: Buzz Villalba 02/20/2020 04:25:10 PM [facility] For EDT Family Health Patient admitted. Outpatient 02/13/2020 09:34:06 AM EDT [facility] Patient admitted. Outpatient 02/13/2020 09:33:35 AM EDT [facility] [place] Patient admitted. Outpatient Attender: Buzz Villalba 02/07/2020 12:39:56 PM [facility] For EDT Family Health Patient admitted. Outpatient 02/01/2020 11:21:20 AM EDT [facility] Patient admitted. Outpatient 01/27/2020 08:43:38 AM EDT [facility] Patient admitted. Outpatient 01/27/2020 08:43:23 AM EDT [facility] Patient admitted. Outpatient 01/26/2020 12:12:56 PM EDT [facility] Patient admitted. Outpatient Attender: Ezekiel Mendoza 01/26/2020 12:00:00 AM EDT [facility] Patient admitted. Outpatient Attender: Ezekiel Mendoza 01/17/2020 01:12:53 PM EDT [facility] Patient admitted. Outpatient Attender: Ezekiel Mendoza 01/10/2020 10:06:34 AM EDT The [facility] 01/10/2020 12:30:33 PM Health EDT Patient admitted. Outpatient Attender: Buzz Villalba 01/06/2020 01:00:04 PM The [facility] [place] - 01/09/2020 11:33:38 Family [facility] AM EDT Patient admitted. Outpatient Attender: Jonh 12/27/2019 11:11:07 AM The [facility] - 12/29/2019 Family H ealt 05:56:58 PM EDT Patient admitted. Outpatient Attender: Jonh 02/01/2019 04:20:40 PM The [facility] Patient admitted. Outpatient Attender: Jonh 02/01/2019 04:01:41 PM The [facility] Patient admitted. Outpatient Attender: Jonh 02/01/2019 02:50:56 PM The [facility] Patient admitted. Outpatient Attender: Jonh 01/21/2019 11:35:04 AM The [facility] - 01/21/2019 Family H ealt 03:11:25 PM EDT Patient admitted. Immunizations Vaccine Date Status Description Data Source(s) Tdap 01/21/2019 completed Tdap 01/21/2019, The Ins titute 12:00:00 AM EDT 05/28/2015 For Family Health IIV3. This is 05/28/2015 completed Influenza, 05/28/2015 The [facility] one of two 12:00:00 AM EDT Seasonal, For Family codes Injectable Health replacing CVX 15, which is being retired. Tdap 05/28/2015 completed Tdap 01/21/2019, The Ins titute 12:00:00 AM EDT 05/28/2015 [facility] Medications Medication Brand Start Product Dose Route Administrative [facility] Indications Reaction Description Data Name Date Form Instructions Instructions Source(s) Ondansetron Ondans 02/19/ 4 mg Oral active Nausea and T michele ONE The 4 MG etron 2019 vomiting tablet (4 mg In stitute Disintegrat 4 MG 12:00: during total) by For Family ing Oral Oral 00 AM mouth bear [facility] Health Tablet TABLET EDT as needed Ondansetron DISPER for nausea 4 MG Oral SIBLE TABLET DISPERSIBLE Nausea and vomiting during Take ONE tablet (4 mg total) by mouth da corazon as needed for nausea Docusate docusate 02/07/2020 100 Oral completed Constipatio n, Take ONE The Sodium 100 sodium 12:00:00 AM mg unspecified capsule [facility] MG Oral 100 MG EDT constipation (100 mg For Family Capsule Oral type total) Health docusate capsule by mouth sodium 100 3 MG Oral (three) capsule times a day for 10 days Constipation, unspecified constipation t ype Take ONE capsule (100 mg total) by mouth 3 (three) times a day for 10 days Ondansetron 4 Ondansetron 01/26/2020 4 Oral completed Daniel sea and Take The MG 4 MG Oral 12:00:00 AM mg vomiting ONE [facility] Disintegrating TABLET EDT during tablet For Family Oral Tablet DISPERSIBLE ( 4 mg Health Ondansetron 4 total) MG Oral TABLET by DISPERSIBLE mouth daily as needed for nausea Nausea and vomiting during Take ONE tablet (4 mg total) by mouth da corazon as needed for nausea Pyridoxine pyridoxine 01/10/2020 25 Oral active Encounter Take ONE The Hydrochloride 25 MG Oral 12:00:00 AM mg for tablet [facility] 25 MG Oral tablet EDT supervision (25 m g For Family Tablet of other total) by pyridoxine 25 normal mouth MG Oral tablet in ev courtney 12 first (twelve) trimester hours as needed for nausea Encounter for supervision of other xu l in first trimester Take ONE tablet (25 mg total) by mouth e very 12 (twelve) hours as needed for nausea Cholecalciferol Cholecalciferol 12/29/20191999 Oral a ctive Vitamin D Take ONE The 1999 Oral (EQL VITAMIN D3) 12:00:00 AM U de ficiency capsule [facility] Capsule 50 MCG (1999) EDT (2,00 0 For Family Cholecalciferol Oral Cap [facility] (EQL VITAMIN D3) total) 50 MCG (1999 UT) by mouth Oral Cap daily Vitamin D deficiency Take ONE capsule (2,000 Units total) by mouth daily [id number] 12/29/2019 1 Oral active Less than Take The Vit-Fe 12:00:00 AM {tbl} 8 weeks ONE In stitute Fumarate-FA EDT gestation tablet F or Family (GOODSENSE of by Health mouth VITAMINS) daily 28-0.8 MG Oral Tab Less than 8 weeks gestation of Take ONE tablet by mouth daily Cholecalciferol Cholecalciferol 02/01/20191999 Oral c ompleted Vitamin D Take ONE The 1999 Oral (EQL VITAMIN D3) 12:00:00 AM U de ficiency capsule [place] Capsule 2000 units Oral EDT (2,000 For Family Cholecalciferol Cap Units Hea lth (EQL VITAMIN D3) total) 2000 units Oral by mouth Cap daily Vitamin D deficiency Take ONE capsule (2,000 Units total) by mouth daily Cholecalciferol Cholecalciferol 02/01/2019 13141 Oral c ompleted Vitamin D Take ONE The Oral (VITAMIN D3) 12:00:00 AM U defic iency capsule [place] Capsule 92474 units Oral EDT (50,0 00 For Family Cholecalciferol Cap Units Hea lth (VITAMIN D3) total) 72001 units Oral by mouth Cap once a week Then 2000 units by mouth once daily Vitamin D deficiency Take ONE capsule (50,000 Units total) by mouth once a week Then 2000 units by mouth once daily Cholecalciferol Cholecalciferol 02/01/2019 12236 Oral a borted Vitamin D Take ONE The Oral (VITAMIN D3) 12:00:00 AM U defic iency capsule [place] Capsule 36246 units Oral EDT (50,0 00 For Family Cholecalciferol Cap Units Hea lth (VITAMIN D3) total) 72593 units Oral by mouth Cap once a week Then 2000 units by mouth once daily Vitamin D deficiency Cholecalciferol Cholecalciferol 02/01/2019 2000 Oral a borted Vitamin D Take ONE The 1999 Oral (EQL VITAMIN D3) 12:00:00 AM U de ficiency capsule [place] Capsule 2000 units Oral EDT (2,000 For Family Cholecalciferol Cap Units Hea lth (EQL VITAMIN D3) total) 2000 units Oral by mouth Cap daily Vitamin D deficiency Norgestimate-Ethinyl 61124-849-53 01/21/2019 1 Oral compl eted Acne Take ONE The Estradiol (ORTHO 12:00:00 AM {tbl} vulgarisEn counter tablet [facility] TRI-CYCLEN MINDI) EDT for initial by mouth For Family 0.18/0.215/0.25 MG-25 prescription of daily Health MCG Oral Tab contraceptive (be gin pills the first Thursday of your menses) Acne vulgaris Encounter for initial prescription of co ntraceptive pills Take ONE tablet by mouth daily (thursday of your menses) Insurance Providers Payer name Policy type Policy ID Covered Covered democrat's Policy P avani / Coverage democrat ID relationship to Murphy Inf ormation type murphy POLLY [id number] SP [id number] 200 HEALTH NON CAP POLLY CARE Medicaid Mgd [id number] Care [place] [id number] Self [id number] POLLY CARE [id number] Self [id number] MEDICAID [place] [id number] Self [id number] POLLY [id number] SP [id number] 200 HEALTH NON CAP POLLY [id number] SP [id number] 200 HEALTH NON CAP MEDICAID [id number] SP [id number] [place] Medicaid 125 125 SELF PAY SP INSURANCE Problems, Conditions, and Diagnoses Code Display Name Description Problem Type Effective Data Dates Source(s) O09.521 Multigravida of Multigravida of [id number] 01/26/2020 The advanced maternal advanced maternal 12:00:00 AM [facility] [place] age in first age in first EDT For Family trimester trimester Health Z87.51 History of premature History of premature [id number] 01/10 The delivery delivery 12:00:00 AM [place] EDT For Family Health Z98.891 History of History of [id number] 020 The section section 12:00:00 AM [place] EDT For Family Health Z34.90 Supervision of Supervision of [id number] 01/11/2020 The normal normal 12:00:00 AM [place] EDT For Family Health E55.9 Vitamin D deficiency Vitamin D deficiency [id number] 02/01 The 12:00:00 AM [place] EDT For Family Health R87.610 Atypical squamous Atypical squamous [id number] 02/01/2019 The cell changes of cell changes of 12:00:00 AM Ins titute undetermined undetermined EDT For Family significance (ASCUS) significance (ASCUS) Health on cervical cytology on cervical cytology with negative human with negative human papilloma virus papilloma virus (HPV) test result (HPV) test result Care Care Diagnosis 05/04/2020 The 11:27:20 AM [place] EDT For Family Health Appointment Reminder Appointment Reminder Diagnosis 03/09 The Call Call 05:51:48 PM [facility] [place] EDT For [facility] Referral Referral Diagnosis 03/09/2020 The 05:51:48 PM [place] EDT For [facility] Z34.81 Encounter for Encounter for Diagnosis 02/20/2020 The supervision of other supervision of other 05:13 :33 PM [facility] normal , normal , EDT For Family first trimester first trimester Heal th O21.9 Vomiting of Vomiting of Diagnosis 02/20/2020 The , , 04:25:10 PM [facility] [place] unspecified unspecified EDT For [facility] Routine Routine Diagnosis 02/20/2020 Th e Visit Visit 04:25:10 PM [facility] [place] EDT For [facility] K59.00 Constipation, Constipation, Diagnosis 02/07/2020 The unspecified unspecified 12:39:56 PM [facility] [place] EDT For [facility] Constipation Constipation Diagnosis 02/07/2020 The 12:39:56 PM [place] EDT For [facility] O09.521 Supervision of Supervision of Diagnosis 01/26/2020 The elderly elderly 11:15:24 AM [facility] [place] multigravida, first multigravida, first EDT For Family trimester trimester Health Video Visit Video Visit Diagnosis 01/25/2020 The 12:09:40 PM [place] EDT For [facility] Z87.51 Personal history of Personal history of Diagnosis 020 The pre-term labor pre-term labor 11:21:08 AM Oumari lidia EDT For [facility] Z98.891 History of uterine History of uterine Diagnosis 0 The scar from previous scar from previous 11:20:52 AM [facility] surgery surgery EDT For [facility] N93.9 Abnormal uterine and Abnormal uterine and Diagnosis 01/09 The vaginal bleeding, vaginal bleeding, 10:06:34 AM [facility] [place] unspecified unspecified EDT For [facility] Initial Initial Diagnosis 01/10/2020 Th e Visit Visit 10:06:34 AM [place] EDT For Family Health O20.9 Hemorrhage in early Hemorrhage in early Diagnosis 020 The , , 01:00:04 PM [place] unspecified unspecified EDT For Family Health Z32.01 Encounter for Encounter for Diagnosis 01/06/2020 The test, test, 01:00:04 PM Ins titute result positive result positive EDT For Family Health Z3A.01 Less than 8 weeks Less than 8 weeks Diagnosis 12/27/2019 The gestation of gestation of 11:11:07 AM [place] EDT For Family Health Z34.90 Encounter for Encounter for Diagnosis 12/27/2019 The supervision of supervision of 11:11:07 AM Faiza murillo normal , normal , EDT For Family unspecified, unspecified, Health unspecified unspecified trimester trimester E55.9 Vitamin D Vitamin D Diagnosis 02/01/2019 The deficiency, deficiency, 04:01:30 PM [facility] [place] unspecified unspecified EDT For Family Health Call During Clinic Call During Clinic Diagnosis 9 The Hours Hours 02:50:56 PM [place] EDT For Family Health Results Results Diagnosis 02/01/2019 The 02:50:56 PM [place] EDT For Family Health L70.0 Acne vulgaris Acne vulgaris Diagnosis 01/21/2019 The 11:35:04 AM [place] EDT For Family Health Z30.011 Encounter for Encounter for Diagnosis 01/21/2019 The initial prescription initial prescription 11:35 :04 AM [place] [facility] of contraceptive of contraceptive EDT Fo r Family pills pills Health Z11.3 Encounter for Encounter for Diagnosis 01/21/2019 The screening for screening for 11:35:04 AM Instit[facility] te infections with a infections with a EDT For Family predominantly sexual predominantly sexual Health mode of transmission mode of transmission Z12.4 Encounter for Encounter for Diagnosis 01/21/2019 The screening for screening for 11:35:04 AM Institu te malignant neoplasm malignant neoplasm EDT For Family of cervix of cervix Health Z11.4 Encounter for Encounter for Diagnosis 01/21/2019 The screening for human screening for human 11:35:0 4 AM [facility] immunodeficiency immunodeficiency EDT Fo r Family virus [HIV] virus (HIV) Health Z23 Encounter for Encounter for Diagnosis 01/21/2019 The immunization immunization 11:35:04 AM [place] EDT For Family Health Z71.7 Human Human Diagnosis 01/21/2019 The immunodeficiency immunodeficiency 11:35:04 AM nstitute virus [HIV] virus (HIV) EDT For [facility] Z00.00 Encounter for Encounter for Diagnosis 01/21/2019 The general adult general adult 11:35:04 AM Institu te medical examination medical examination EDT For Family without abnormal without abnormal He alth findings findings CLINICAL DOCUMENTATION IMPROVEMENT SPECIALIST Exam CLINICAL DOCUMENTATION IMPROVEMENT SPECIALIST Exam Diagnosis 01/21/2019 The 11:35:04 AM [place] EDT For [facility] Physical Physical Diagnosis 01/21/2019 The 11:35:04 AM [place] EDT [facility] [id number] Nausea and vomiting Diagnosis The during [facility] [id number] Constipation, Diagnosis The unspecified [facility] [place] constipation type For [facility] [id number] Nausea and vomiting Diagnosis The during [facility] [id number] Encounter for Diagnosis The supervision of other Inst itute normal [facility] Health [id number] Less than 8 weeks Diagnosis The gestation of [facility] [id number] Vitamin D deficiency Diagnosis [facility] [id number] Vitamin D deficiency Diagnosis [facility] [id number] Vitamin D deficiency Diagnosis [facility] [id number] Vitamin D deficiency Diagnosis [facility] [id number] Vitamin D deficiency Diagnosis [facility] [id number] Acne vulgaris Diagnosis [facility] [id number] Encounter for Diagnosis The initial prescription Inst itute of contraceptive For [facility] ly pills Health Surgeries/Procedures Procedure Description Date Indications Data Source(s) HEMOGLOBIN HEMOGLOBIN Routine 01/10/2020 Encounter 01/10/2020 En counter The ELECTROPHORESIS ELECTROPHORESIS 10:38 AM for 10:38:0 0 AM for [facility] EDT supervision EDT supervision For Family of other of other Health normal normal in i n first first trimester trimester Encounter for supervision of other xu l in first trimester HCG, HCG, Routine 01/10/2020 Encounter 01/10/2020 Encounte r The QUANTITATIVE QUANTITATIVE 10:38 AM for 10:38:00 AM f or [facility] EDT supervision EDT supervision For Family of other of other Health normal normal in i n first first trimester trimester Encounter for supervision of other xu l in first trimester ANTIBODY ANTIBODY Routine 01/06/2020 Encounter 01/06/[address] The SCREEN SCREEN 2:30 PM EDT for 02:30:00 PM for [facility] (INDIRECT (INDIRECT supervision EDT supervis ion For Family KALYANI) KALYANI) of other of other Health normal normal in i n first first trimester trimester Encounter for supervision of other xu l in first trimester 4TH GEN HIV 4TH GEN HIV Routine 01/06/2020 Encounter 01/06/2020 Encounter The TEST-IFH TEST-IFH 2:30 PM EDT for 02:30:00 PM for [facility] RECOMMENDED RECOMMENDED supervision EDT supe rvision For Family of other of other Health normal normal in i n first first trimester trimester Encounter for supervision of other xu l in first trimester HEPATITIS HEPATITIS Routine 01/06/2020 Encounter 01/06/2020 Enco unter The C ANTIBODY C ANTIBODY 2:30 PM EDT for 02:30:00 PM fo r [facility] W/ REFLEX W/ REFLEX supervision EDT supervis ion For Family RT PCR RT PCR of other of other Health (REQUIRES (REQUIRES normal normal 2 VIALS) 2 VIALS) in in first first trimester trimester Encounter for supervision of other xu l in first trimester QUANTIFERON QUANTIFERON Routine 01/06/2020 Encounter 01/06/2020 Encounter The GOLD TB GOLD TB 2:30 PM EDT for 02:30:00 PM for [facility] supervision EDT supervision For Family of other of other Health normal normal in i n first first trimester trimester Encounter for supervision of other xu l in first trimester RUBELLA, RUBELLA, Routine 01/06/2020 Encounter 01/06/[address] The IGG IGG 2:30 PM EDT for 02:30:00 PM for [facility] supervision EDT supervision For Family of other of other Health normal normal in i n first first trimester trimester Encounter for supervision of other xu l in first trimester HEP B HEP B Routine 01/06/2020 Encounter for 01/06/2020 Enco unter The SURFACE SURFACE 2:30 PM EDT supervision 02:30:00 PM for [facility] AG AG of other EDT supervision For Family (HBSAG) (HBSAG) normal of other Health in normal first in trimester first trimester Encounter for supervision of other xu l in first trimester HCG, HCG, Routine 01/06/2020 First 01/06/2020 First Th e QUANTITATIVE QUANTITATIVE 2:30 PM EDT trimester 02:30:00 PM trimester [facility] bleeding EDT bleeding For [facility] First trimester bleeding GC/CHLAMYDIA, GC/CHLAMYDIA, Routine 01/06/2020 Encounter 020 Encounter The SWAB SPECIMEN SWAB SPECIMEN 2:30 PM EDT for 02:30:00 PM for [facility] (BIOREFERENCE (BIOREFERENCE supervision EDT supervision For Family ONLY) ONLY) of other of other Health normal normal in i n first first trimester trimester Encounter for supervision of other xu l in first trimester CBC WITH CBC WITH Routine 01/06/2020 Encounter 01/06/[address] The DIFFERENTIAL DIFFERENTIAL 2:30 PM EDT for 02:30:00 P M for [facility] AND PLATELETS AND PLATELETS supervision EDT supervision For Family of other of other Health normal normal in i n first first trimester trimester Encounter for supervision of other xu l in first trimester GC/CHLAMYDIA, GC/CHLAMYDIA, 01/06/2020 020 The APTIMA URINE APTIMA URINE 2:30 PM EDT test 02:30:00 P M test [facility] (BIORE) (BIOREF) positive EDT positive For Family Health test positive ABO ABO Routine 01/06/2020 Encounter 01/06/2020 Encounte r The GROUPING GROUPING 2:30 PM EDT for 02:30:00 PM for [facility] AND RHO(D) AND RHO(D) supervision EDT superv ision For Family TYPING TYPING of other of other Health normal normal in i n first first trimester trimester Encounter for supervision of other xu l in first trimester LEAD, LEAD, Routine 01/06/2020 Encounter for 01/06/2020 Enco unter The BLOOD BLOOD 2:30 PM EDT supervision 02:30:00 PM for [facility] (ADULT (ADULT of other EDT supervision For Family BIOREF BIOREF normal of other Health ONLY) ONLY) in normal first in trimester first trimester Encounter for supervision of other xu l in first trimester 25 25 Routine 01/06/2020 Vitamin D 01/06/2020 Vitamin D The HYDROXY HYDROXY 2:30 PM EDT deficiency 02:30:00 PM defic iency [facility] VITAMIN D VITAMIN D EDT For Family Health Vitamin D deficiency CULTURE, CULTURE, Routine 01/06/2020 Encounter 01/06/[address] The URINE URINE 2:30 PM EDT for 02:30:00 PM for [facility] [place] supervision EDT supervision For Family of other of other Health normal normal in i n first first trimester trimester Encounter for supervision of other xu l in first trimester VARICELLA, VARICELLA, Routine 01/06/2020 Encounter 01/06/2020 En counter The IGG IGG 2:30 PM EDT for 02:30:00 PM for [facility] [place] supervision EDT supervision For Family of other of other Health normal normal in i n first first trimester trimester Encounter for supervision of other xu l in first trimester URINALYSIS URINALYSIS Routine 01/06/2020 Encounter 01/06/2020 En counter The (COMPLETE) (COMPLETE) 2:30 PM EDT for 02:30:00 PM fo r [facility] supervision EDT supervision For Family of other of other Health normal normal in i n first first trimester trimester Encounter for supervision of other xu l in first trimester RPR RPR Routine 01/06/2020 Encounter for 01/06/2020 Enco unter for The 2:30 PM EDT supervision of 02:30:00 PM s upervision of [facility] other normal EDT other xu l For Family in i n Health first first trimester trimester Encounter for supervision of other xu l in first trimester MEASLES, MEASLES, Routine 01/06/2020 Encounter 01/06/[address] The IGG IGG 2:30 PM EDT for 02:30:00 PM for [facility] [place] supervision EDT supervision For Family of other of other Health normal normal in i n first first trimester trimester Encounter for supervision of other xu l in first trimester Routine 01/06/2020 test 01/06/2020 Encounter for The (URINE) IN (URINE) IN 1:36 PM EDT positive 01:36:00 PM test, [facility] HOUSE HOUSE Encounter for EDT result Fo r Family test, positive Health result positive test pos itive Encounter for test, result pos itive test positive HIV 1 <td ID="[id number]">HIV 1 & 01/21/2019 Encounte r for The & 2 2</td><td>Routine</td><td>01/21/2019 1:18 05:18:00 PM human [place] PM EDT</td><td><paragraph>Encounter for EDT i mmunodeficiency For Family human immunodeficiency virus (HIV) virus (HIV) Health counseling</paragraph></td><td><paragraph counseling styleCode="header">Results for this procedure are in the <content styleCode="[id number]">results section</content>.</paragraph></td> Encounter for human immunodeficiency vir us (HIV) counseling US PG UTER F&MAT DETAILED FTL US PG UTER F&MAT DETAILED FTL [facility] [place] For XM 1ST GE* XM 1ST GE* [facility] MEASLES, IGG MEASLES, IGG [facility] [place] [facility] HEPATITIS C ANTIBODY W/ HEPATITIS C ANTIBODY W/ [facility] [place] For REFLEX RT PCR REFLEX RT PCR (REQUIRES 2 F [facility] VIALS) 25 HYDROXY VITAMIN D 25 HYDROXY VITAMIN D [facility] GC/CHLAMYDIA, SWAB SPECIMEN GC/CHLAMYDIA, SWAB SPECIMEN [facility] [place] For (BIOREFERENCE ONLY) (BIOREFERENCE ONLY) [facility] 4TH GEN HIV TEST-IFH 4TH GEN HIV TEST-IFH [facility] [place] [facility] RECOMMENDED RECOMMENDED [facility] LEAD, BLOOD (ADULT BIOREF LEAD, BLOOD (ADULT BIOREF [facility] [place] For ONLY) ONLY) [facility] VARICELLA, IGG VARICELLA, IGG [facility] URINALYSIS (COMPLETE) URINALYSIS (COMPLETE) [facility] CULTURE, URINE CULTURE, URINE [facility] RPR RPR [facility] or [facility] ANTIBODY SCREEN (INDIRECT ANTIBODY SCREEN (INDIRECT [facility] [place] [facility] KALYANI) KALYANI) [facility] ABO GROUPING AND RHO(D) ABO GROUPING AND RHO(D) [facility] [place] [facility] TYPING TYPING [facility] HEP B SURFACE AG (HBSAG) HEP B SURFACE AG (HBSAG) [facility] RUBELLA, IGG RUBELLA, IGG [facility] or [facility] CBC WITH DIFFERENTIAL AND CBC WITH DIFFERENTIAL AND [facility] [place] For PLATELETS PLATELETS [facility] HCG, QUANTITATIVE HCG, QUANTITATIVE [facility] UNLISTED IMMUNOLOGY QUANTIFERON GOLD TB T [facility] PG UTER R-T IMG TRVG US PG UTER R-T IMG TRVG [facility] (URINE) IN HOUSE (URINE) IN HOUSE [facility] US NUCHAL TRANSLUCENCY US NUCHAL TRANSLUCENCY [facility] [place] For 1ST GESTATION 1ST GESTATION [facility] CONSULT TO OBSTETRICS CONSULT TO OBSTETRICS [facility] CONSULT TO GENETICS CONSULT TO GENETICS [facility] HEMOGLOBIN ELECTROPHORESIS HEMOGLOBIN ELECTROPHORESIS [facility] CYSTIC FIBROSIS PROFILE CYSTIC FIBROSIS PROFILE [facility] SPINAL MUSCULAR ATROPHY SPINAL MUSCULAR ATROPHY [facility] [place] For (CARRIER TESTING) (CARRIER TESTING) [facility] FRAGILE X, PCR RFX [place] FRAGILE X, PCR RFX [facility] BLOT BLOT [facility] Results ID Date Data Source [id number] 05/04/2020 11:26:27 AM EDT [facility] Name Value Range Interpretation Description Data Sup porting Document(s) Code Source(s) MODEL OB The ALMYMs0sTa YDWkWb57/TDQoxID [place] Jay7FiSBml STf7YXzgSITmH7Hj For Family SML4tR1xM EN5MAtKDoYsYyTmUC Health ExMTEyNjIy VIU4TuRyPjtyBN2n QUE6ZVfZLh IwMjAwOTExMTEyNj WaHMD6EbEz GrwsA5CzQQUtytxZ xCtwETL8e8 FovBUzH37ytF2pHL Tnx95eZZtf ID4+DQplbmRvYmoN CjQgMCBvYm oNCiAgPDwvRmlsdG VtEE2NqFD6 HAFsZ71wSYNbOTQq L9YbIYJzGA M+Uy2LDOInpXCjGV 8ZObhY7P1d m2e9Nx3+M/cf8DGd fX6Nh3Yp64 4f7yaJnWJGKnyw5Z Yi8vvbOQOh ynZ9v/4AAiCxsILE 2eV4ciub25 dod4qHL5RSmAZo// k32c+SIAiI +Cv2V7eQDz4Qi/6F jOiZHQoY49 l3HjxxYHgBmZe2vz V2nzVhfZq+ TYkmTEkf8Q+vCUtj ssfyiIxnr8 Y/kPE/PdIiMw0lDG UCEzHN0pdO by2VVEP8k3nohzXV Xm4GjhW7S9 yKigq28jjxFfC3y8 jYSd90N3f8 Nx4rezrU6uPHNvwz X0tSzGVgcq 6SGCXYIdQfoz0R7E NLCoESXla6 XLR3JMWrD1Uio0kf btnMOT6J56 9RQ//PxbSrB37Tz0 E0bxraH9S3 xpr8O4tWFBjePchp TX9F3L8SOO R8QaGGbnyGMcpCLm UYiiEUUyjS 54g/GagpJA4ta8nq pKi/PVQFF3 419nk5JKRrFd5Ch0 hU9tblyZdw vYSxFPDOP+Wwy78d 6C/oZRelTd u2bupsCQiZ2mXxzr 8oHYRBGGxl rGXs/JyBCQK7hYTU 0zRuaPwAsg fyN9sgzwD2HehkLD XWW0WxERMJ HmxisK/tOzQxX5nC PtsjNiKp92 xpOXDwqJA5phvByU v7vzVotWZT cQOqphqSP5hF9NFE ZJRG9lha85 W4oVoePfdWT0RmxG nlS4YkjU3q qIty/eUHLHeyMEms D+9RcjZf3o Asb+ppzucFciyGEI 7JSA6VJMhb UgELKwoh5U5K/I+4 t5snOPB1Rn SzrTjNNo79mMfdju J3QjhwhnKE ce1sA9zi84frKr1s PjKwiALD2Q 2Ft/C5hfWwyOcJYI n4X2JRXqTf dPXza7On7WwtfGEJ jSZTzCqnQZ RQVOYWHNuniw9wAF FTNjRmIoI+ 7BYDs6bQepavMqyV pAat/zQZUh rSPphBmzyp1/Mlp7 fSV9eZP3no SxS36JgGWJCdq3vb j3FdVNaEKm rNX9NR66cGA4SAFO gBJYL0MhQp AP9bRAzGQ/jOnSS+ gsyEsu5Cbg xdM39TG6DZ7mqchb 61OqYweghm zwNcOhw9fDhCZE/e euBCbeOADK w4q3J6vVDnt5YpXa md2XefF0C3 5pf0o3GbrLbfhNIm tXomsKECL8 7mxrK77m6Qwvlgf/ TAuYbfbksF Qe7jArir251ixjoO azI1+xf38+ YS900GgmCS6hhlEo 4JyIvuEUR1 E/U6zhd8xN7PayQU GLoedmT8sL ChUhbzq+TZFz7BXL kho2K8lFyY 2WuN5omWimmozUri 7fkwD10vvX kgra5FIVlwRKMoO0 KsOANYITmf q4kJN6glZoxgZjpm b94ElE5srS 3y+uesuCrIFZr+PA uV/rRZEGDr pymNlIFQ/IVvgIWp MhAHaejBQs TX4nbW7NJdvKpS4R I9z6Y8WIne SH7h9ZJd1Y62VGI7 c97Q9KLfzy EMV/MviYkq9NRdKi iCdYy6AfUr escR4kcuR8SKPsft JmnWh3koDp 3YIODrKk+e0XCVIM fL+eZto9hU vT92d1uk8nc/N0TC +LwJ+2KYlC r1hmZzdNEsm6hn2v r731VVsI5I aUO0R2HXtZPrELvL iskGmc0ohq r72siV8i3GeeE6xF pDhH0DOLdH a4YJ6Rk03X7C1Z2Y 1CaHtBLmTZ o+F/V6ev509/fz2W va6ohJBEDR Z6uakF3z8uL7XY+e lzKUMcPowW mVkEE9MtxKOEE2r9 k95HjPLcCd robClLHVX0UEXAfZ vblaQyzq6v e1i3PRnzTkrAOHId wcQCtQrXXn bpAJqmy2AXC9Pj/c uJHGs7DA33 woe882UV4IKqtu2I BRBS+Fcc5c FjdYL8EClHuJKAq1 4Wfo/BaafZ Bfahch+L8IyGuDpG PWoaolwlst /+OLJHM3pQAvXYaZ 10HpH/BSqz iqayeLUjv9JVivu9 wCx5AC2FN7 itY5bbusTiwT3GxK JBcONSm6RC i7am5Pud33+NPHSz KryoLwaTPk 7SwAbF7xubQm9Hq4 cduB1MLO5Y TdfirbAubO/M2288 2IP7ssuXSn 5i4Q4JMYLExoXr53 zksvxUSp2B WlfuqqPmclWGUMPX J5u+1p4xNw B612WiVKYwakBhDf WGhC+JyjTD 9FtXHucTORxWnVJj QM3YkiOK0s vyEAx9ihFtkc/w0g 9Hffam0zox N1Iis5BKNg7pU3t4 w5uurnbZpE nscZNulN0uJaMt+5 Ou3BssUshh q8JHO385TMRsawMt al9VtvFlID 8FRKYGoOaZqTvSyW jXDKN/jr1X eX5Muwy7DTrOFoDN dGwnKGZMTC EEKNrns1LB5xH7u2 Gb7/hGcgaZ dW5qTJKRkZc3reXH 1D0Npghv2l /drD9g+NAR4jm4O6 GahhiyzgqI HdtIttZkcFj6WZS7 uO857ezKej pLvuW8yPjKGOEk2Y zfYsFb1WNF +ZWDTGE19Mjqj6B8 VVsVoVM/H4 On3K21HKvcdE/8KO MNu4QspoML 3E2vuVNwZxfIyxpj iSg+szmdR1 CizEhutQesF8HYVg 1PAvr0Jn9c st6CIRr5teaqQJZm 0/aSill157 a+yT54cqFFRPu6l5 0QmpbrJO9e 0uYqCBff01Yv0Unp KZoefGy6NF TLCxpVdVl8j8vMAY gQzq+XXJbz yyo9RwRiBwjhLBhB qU/jGZTvkQ u49XznDCQVr2pzoY eVB4jseZhW H07uPyCY7yRSvThF eL1AlbFj5T DHW0gsyDgDRX2oOW YOI5tYV65s dQWss2nqiAju3EnA QXeMeFeOK3 QT3XAYgtSBIEHMci +XTqyuNaLN wwnEWod2uaD8l4lS EzJ2cif85w JmmL8u7ujzLpcrnd anIvqLCmhC +xbUtmIjOAbht8G9 qsivhhZ0M2 WLtELitoAmk7MlhW JW06bsqHjC mpppSiTvlK4fT0rx J70//yDqvz GGqKgdC7CLj37EdT nDLWnCrls4 V4m4v0X54irfRf93 tYbORFI5tB 6KVZQ+rKkVOLLHpp i1j7MouzD2 sR7wu5RhJIfz3gPi PelJwySw6r iu+NIHOiN5EZgXTB 1hyKB+xqbC tj+VCSFCi84I5QuG 69Og8O1T+k GezvP3l6R9xND+mh tRISI3wO9h o2moyco1FNXXbCbd ei5pTJ+jm4 BAoNBTBSgkvsMy5j eXlGqY/SpI Weva07EmrZhnO5Kn rt48B2llia Dg+F7HxJ4uylM1ty qcnNZEZCUl eIudFWQglcWRSzmt GAYWk87FIT Xfz8Bw4xZw2x85k0 X8JRxjF9ln ueAU5p78OnC9wsP8 J5MAQ7v0cT 7yXFly6xf1NPvBEM z0Jv+4yaCm s/WyUQGuISl6MDJD uuvlusyVG1 vOWTzssfgvpafFEu WsTC8WU6DX vf+LRBFd/L0EfeNz EyTuzokjyg vUanDbbZuyKjSXmN 2F/I4PZls6 MAEropd7V6g+EJng 0gD59QvEoD I9noqMgdtFun7Zf2 VCfsfcXTI0 wmJkxNOUhsyg31G3 lCPL/5WEzQ T5euqEhr+Kc5s6Eo i8Oz9/jBKR M03Ge+tUOOt13Adu DoBS01H5Z9 sY5motIF9E+UsCiS Enrx0Rx70R do44L6zxqDKa92KW 1BYImWHbgu /FV+iEq27yXY5eOs DaATZwCbHt GZKNGKbpVhg6e7iw IylrFoP/A8 ALSts+Xyrix+omm8 z2V1QIHJxI Y5K/7EzwWTHcLRcI JbP2Wg2Qu7 AhTBY8XfC0M1vXR1 zMrButA5SK s8CUOKO4Vsm5p76w /Fxpmc+c9P Jv9kh1IsajkYOfdR Yha3qVkrWP 8yqfpCHxCvTefq8d vwMfiFdv1R 8/XV9mgu3gS59l0/ EalMDR6WZY 73trTSwwVGu0IBI+ Sg75TKDdQw 1za+N7D4opj8hvtR C0Hz7+i0Of Xif/1N/u9MzQEf+s GyRliQSwTl hsKl/suaTF0WfjI3 uEC1qxfu2/ wv0sFpCekBJAgTvp 8CtbpQe41f mL9J2lpbdMj4R+RO cGOheJlFCl 5lVxvIBVigDio3A4 b+JUnilPo0 SdxuvwJofO7qnu7s jCzYmKzq1C 1Np2BIl40dVh3f/S DMvCbNNCBH 2lZp+y4OCcV/NYc0 gkcOUcYUh7 xo3eeB3S9UOfqqFR RkjeDFlqG/ usoj9t1Mk9x1GL+T svTkwqx4uD BR0WmWbmHGOr9egl +qDYU5Z3Ie CQwn5fy7k8cNIkI9 9CrAIoq57z kUmWnDsmabKXyp5j uLcQsf4S3w diC0u6yROuOijxkz he5SHCz6xl A9D0PP90wX5SMn+N vw7tJpuA2X G3CPQfLYeitltExE GtqFgMrxKr PSaJWMiFIi876UXJ YjhI4KLyGs 6W2vvWAe9rl5Zp5a S6bE2wv+SF iLn4MnJrYsb0qam4 gVoukKaE0S TJ61HbPctCLXDuYW FhcT4yu+WF gcTyMsOABVJ6J535 SWTv0RcsB2 FiXbGq53PexCMa/U 5qn4Wyn2LQ /Wq28BJXeDZ1O2AY E6ImnOTlfd AU+i+94HCyvclfZd QQbwJLrvfb Sqra8gC4DhJCDNun tpDevb8QT5 ThRSWCSR42I91o9B N6/CG93+Rk QzeCAWLuNyGvhI1o mzVGrj4p1h QQbwJLrvvbBwbHT7 dwYZQJPovv zYdwUW6l8WcHwO3s wapLz5xhTQ lxhd92RI0YkUMKmb qEw2qk76Xm wkUQ3giRKG1FY557 8agCz0cJuJ ASLI7R82A1IR1s4n ZDvKGt92Xj Un/uYn01Dkcxl9DT T4VxCEQMP9 O64E794YFwr5J+07 gwzgSXTf+2 BhhTvDrki/yACaRP w7BoHJsIh8 M7KDkvrwz+PypF8W FtrjyNAuBE hO60kFSs42nDSduh mUfjp5pQ2P bCC9uo78NqkgeMcF BklAIOBU6G 92YnYPsL2+V7AxWb 3brGNy7AxB sg3BKoG6JiQmeWge DLK5K43Q30 9JOoz4H+27ggzgSX Dpy6TvfJjR rki/gHPsQTg1UaAW wEu3a2TZcc mem4GbsY5VGmupiw lLShrOi1NU YO694Sh340ivZIm3 0q4ttMHeCG x2XccEtIQqbpGCPW BJdN/7IWEJ vFa/G4aOzJ1vWSkU +pOh3au1D+ G3PvrvMC0K1kvZ0f JM4fyfErKz 1KU2NIXH5ES+932w scaeoRemZ3 AAY+Z37ynyx/CV/h 6LggF9qkZP XcY0Qmz9KAGxGyPe 67cJVhKefs ic+S65q4tsz63/d/ XG7Mccsm/s yVCy6HFoHa6WdEi+ 90TQOgGtgd 1BCJC+MQegcqhvjm 5+Bv7zUtiU Ds2oiJWpZYY8sOEb /e+JoxX+Sv 8L7NS0IY//njha4c /A59T6XrQC 3l5jj5LDPtPPKHZI kH43B+ByqG +Yuw4tdOZQvgA/Bk 6bYiUlaeaF Qzv//jp2wkGJs26h D3/f+EAO7f p6a09qKib6DBljms YYfHwghTL0 8dUXRasEtAbwMuAb MEW7jbvnfc KVV0GV5Ww/Ad7HFx ANCmVuZHN0 pmByxE9TIT3qj5Cp VRt0PLFsq2 EoIXlwELx6CEwxBA KpN1V2oVKq URKnWH7GIDWxPW8L YXJlbnQgMy AwIFINCiAgICAvUm Zvp0YcI3Cl IDIgMCBSDQogICAg H23kIUgoSf 94IFswIDAgNjEyID y3Ti5YGeNy LBHuO33zrFOawBYb NCAwIFINCi DdWDDnU9NuvYHpWY msZ6CkY3Zs QW5riAOvZB2sjZLa B6LmE2Yjhc ljZVJHQiAvSSBmYW xzZSAvSyBm YWxzZSA+Jd3ROOR+ So8BNM9yt3 ThHGv4SJZre7MtWC diSEn0D0Qi bHRlciAvRmxhdGVE ZWNvZGUgL0 chebw9tEQmDTj2Zh 2BYhMql2Ws SCOrGPzCig7gt0/b BUs5mrK+B3 4EeBJM7mUZwfDzWw ErYgVr1MW8 +9QyXYi5viKR8CC6 75ciKYmUHX tk09uEr7TRd9Qq8J 53YATi3WFv /vsTHQeeZVmo+tN8 DUIbjabon/ 6I8K6B1hiEvd5y5U 3b4aHydrsD Jbe0crfqx7m8IPat G35s3gUp4c D+Rgs07LOTgnPM2k 7d7LGs/uor jcY0//aPjOt67yTv x7dQQDixIy wI/mWIeucWwsRCwy n4zZAK56Ho JfitLH8DzyGT/yGM q8eY+aybVJ rFSBG0RTnevmixU1 daZ4sb6IJI a0/q12a6H/3iyvY8 abdmup+cm8 HSB8/4UhLyHQjX3Z 1PNGvOrZAs A/yl3QaXZ+lgJisI Hs49MqIj84 eHvHqR3bgddtOEE4 LsW86yegrV o3Q0N+c/wIr/fh6N 3pSMshG4+R uHTjEE5BfFtjwAEg BTyC9dyBqx /Cho9rX+ktYnmRTS EZYmFqarm7 Zu+gnQn3R4hHRddx wukG6YlQUv i38ubtk/gvQRm7DX Lnba5/zCvR 2/IFBhawR369Pa+p N/iWEX/jzQ c+Nz68g0fGy6K JUabSsP6DG 8Eeu2hUFEkaGKol3 v10E85I1sn dn0pxJRnUPW3fs0R RYkeDkZZWs imeU8jZenAnFfJJa EduEGLiMw4 PnYC2/C3Qyy7APW0 BTtlxKIBfY 3pGx1/NIT8Dq/YCq 3QVJyWSiDz 9BpbS77fd+/lydnV 3wP8gyzZ0F j3nKMd0vdp12evlh bjCGVPKBq/ DzHcm43bSqaGmkRD U0auLZ5HWP uiMo+ntGBXzCWQF/ tJt0jBj8WE u95AvgqfxjB61x0o u3cCK5vLsZ UEV0YG3PUK31Mizo j0SntcsnOd FhTK52T/hZY2bZ1q jmb9Guodnx cffFXehIGYVsrnDZ NgSVIGtuXy xArqRh6l8Tl+nEXT wTjhDM3KWM qOWKRFlaazdExZFk 7jlKVqEU/S +Kr0qKPQ4SKafKED xdf7uBN/O/ lx9/LKUFgsLa2IJd nyu6fOPadp NG4qXUwifPF+StHz zOiq3RO7fG Udx8hcN+WxvmCNeo 8zWj2Rmgck e0egwc8YwDFaXZtC wzPgcxxbOZ Sg4SrwhWBGmmmt3e kHCE1Ae+ci Ytzz9bAkcjW5O7C9 R5wWh+iyeK Z/RAAqEHg+T9Dz61 nVgtX61WML 77k325cwQ61Vbk3x IQroHRvVbH F56FUwm0oJcniE5e kRdDsUa4HZ EV+t8Y2cDmwl0Asf C7IpAz64hH hhfDEsnpRnnnccmh 9ciiHrnG9E TFpBKSYqhV6Wqexj S/LqfNQc4W qxfLo4qFeMYbPEtt qmjoKOqlKP 6TRjkHxs/Y2UKrGp T2AP0n3P00 FTzUMamKBU4Oc+uX XWskzwXLeT GP95NPabAM9E6VXs SZEblxwGyk pc54mI14smvxL+lV RYwIJLhcB2 jaYCWbnkFm/zliXW 9QAUjL54aF iqIIQmfZEx8U/Vi5 sOF7x4Q/2q Ey5OQTkamh3cj0Qp 0Be0sxvZj3 h9vkdFedycPgA/eq cU91gE5xs/ 4v09ObHvKtI5fFNU vbZ+0dLN1V w6QhsGHmu24JY/+C eZ6cpq1Bo2 DZvXoNqtC8+21XGy 9rA/Dqu1aO ltIOqQS7msMFhe8g ka58FxJT4e CGWZH9AR3lBMqewo d+6IgvsVHb I7746HK+5B3zWVjh Y/YUlI3Lve EsVdGeUlHZsOgXEV umAxMIeBqw Ykls7CX+H3fRS0u4 jC6lXsUP8f mWcpctHVBbrJowQN +1++MbTTy7 otz4VnTSDIrCW3V1 rUL2EqPad0 OQlLAiXCdWaevQBj zjZyUS0aw3 KsBPx6pzyR7EMbYr cwNWOBxbvM 8noYiDGJAMFYyGJg rk+by9NVph LRJ1G7K5KChok4h+ j+cti/urxG v24Fj6xElCc5QSd9 hviPIfsrTu sM6JKo14DUujYkhQ FUIgBwynyH EgGAtfHLHEyId3Pw xh0n6hcEMq l63mpmKiaspI4lPu +pzgyU4EZ/ 2G/orsqUNjmyjkk7 3DNU1wpJSp khJMzNU4Q3tOPXYk Yeu0NBvOk5 kopsHM+mfPlSkzaK GnxFPs3YF5 GZRGIfhrgWwTaNIO qkkB2BrzoL bkQwKqzK8yJRDOWZ UzvZ5L0IIo 0MB8d6ylovCzJgbA gWBxjQFxqV aJQdVVsEcTqpNvQc VBpGDzf9pG KB6+UBQ7RFDtkuZs yVHWvNpfI7 /sVSufLvuxjAP/ax PtYv1br2BT K5UeE2pByRmASV1S 3eu79ewD48 xZhFOaxo1NAZu1ej U8zfGWKujy vVzsJfH9GyWmy9GH 0vZas3SPnb BkI5f2cTeoZYG7Yq sTchdIQGtM lV6x4bcd8GJRgrWi wAAJ4pwyGh CYHndh1GV/GGr0aa DYxxAVI1qn 8V3oLziX8YBjiqUy hf54JcQ0+D nDzmS62Llp1ZXE9g azS18eXUx9 gXl+Rhr/maYer6YD 2rehYmsR89 Zamo5kR4UAy7TJz6 Ss41Z6pCz1 8u+sPL+4TIl6tZOD 0YGFBU3Fiw KkFeSYV3e3LysQIX fH4iY6Jrk7 M6TYnn2dUKIcDayg NgrGL6FJe1 Kbw6YHr8gziv9VHS FefoT4Dmqs 7hTvZIEkd8qKj+a6 zk0GKFfG/V x7Zn0Z7oyDnj+O1c LnXZmA9hDp i0hd5gdu4L2QQmRw 6a4NZ3qIz8 9VQBsajylZUpkQz5 5IQaJw6se3 nHglrd2EdvqZd74W eLE4TPbrIg e5G/RK36unYqsDOy rYRNV1BM7/ eUkW1D6JPB4hI1al 7NUfk6yLsO mBnvM0ElGhTnUcx5 PdDjbj6880 LnuAqHUrirh40olq uOGM/ZHwC4 mHviA3S4NhEsDBku +dqG1hXNps Lnm5V79Vof9I0T1S e38VfRN2it r9gQGXC/G0GOT5tt oD+ 31s10q99eIE+kcav cD7otzG6pV siUUM+KBXa0pFoiD Sy8hAwhwdw 34PrvtVfBD0GBWux ZSWL9Wicp0 DEc86EKgwCDBacpZ rZQ0ND6tBB w3gcC4KG3Pt/M8ms CIZd38McVX AAvAF+e1l2K7nTtE bZe+N227xf 8NRcjKd5co9KvgRl fIgkdnL0Au QXcGnCsOp/XPPcx5 KklWjHa9BJ TruF/4W1RQoqxra+ U5iIZYquxz H5qsMBTNo+58qGji rLrDQKayHM YNECzF/1QWruDAFP 3ZRSRUX5I6 T+syEByaCiBSxNoE btmRqoUUCS eKm9SzdjeXEgyfgD TFDO7LKAVi cGCK/jrj7qBW/00+ pwCzIF2AxE MgEIxtAf7UYdLShC OIRBZV7sVX /3WKwIEp/psUgUNT AZoUgYMTKe MOCzC9PKyeLln8IJ yL8s1PKQXd xX+bImBoKkCbImvD /ZjVz25rnf FzqTIcOIPoh3GDi3 sPAFYWDJoC WS0D27YopGnXJha8 GPJfdH5wAm mtB4QWWblEK2xhPR j0fkVq0Dzx X8MrkgErTVOYzWQ6 FkURW0uCdR 5c/OveQF4iezBMql VUcpHoBV9c nXZQCf8aLmbvBOA5 BVwTLBiehq AFfCvuY9zK58qlFU bD2oMHhrOE qZEAB1IDRHmGCwie QIERHgzPS2 GAgTXMWVuITOmmKf Ly4Y0TytrH 7cHAhayyV1Hb0yCt VEpE1lcRKL 0CupXCVQav5BEQFL DtgdQ3NWC7 LKf3GNKCZGXNMMSZ HaMo56UzsZ 6JJVtOt5Ww3ZEbOW 5knwmwPaFR kiLtA3ZJARvuun+x BApYZQBqo4 mEEzHzgaYAR9PKoU P6PfS9n0ZA EpMo38BweZ1SVYiP oyKHjTZCKs wV5six04AZiIRptO LBTx8kAR7O oCPbhVyJPpNg+0Gj eqTRbv2Kxj QeKfQ3pRETk1MpOB Zow3ALFjN9 ClhlQGqjiEwaYGCa ttDUccb8Wj 2nyoxBRp6CiBNnvY yJPpNg+0Gj IoeNNkIqyFblih+B S9kUDylbeJ iADmNjbpCRF2IIhQ rVctJ+0Kgp KVTnd5UgVTzd1ciM zjr71icnBU uVq+pnHLZSTuIGpD vTyf2ZPXaq YYGE0TXeJG9KkM4w EKDO5Xg8HQ eyzwTYntCoyGGtja BAtpV6mzp1 JcrSV1HqPOZBAmeU feZErn8Mxb OsWdH0eDICNFnDwz ZRqz6b2T7Z xOpvg45BXbRYcjc4 J8o6kBjY0k hhsuLizQ1tPr2RAk bAhaX7BrpX jVUSDE9peKFROzfX zyB0KcwAnG KhSV3clAYVWeedOQ X4SgP8Cmq2 r9s3XBoLZiZqMSV6 dgAkxB2RYZ 1bg9EwVEc9HJXkk3 JqDQogIDw8 RJaoXVLnL3J3cJPe XEWnLY5PJS SnPT8ZPDLwfeZbCn AwIFINCiAg GAMvXlGmj7UyW6Rn IDIgMCBSDQ guEXMpW13xPKncXq 94IFswIDAg BlZsBOv0Er0QXeKf CKNmL94muU VudHMgNiAwIFINCi OfCJYtN0Yh wZKrFBafE5MeZ9Mr CI6zmHOgTZ 8hpEUdV1LbK5Hdca ljZVJHQiAv SSBmYWxzZSAvSyBm YWxzZSA+Pg 0KICA+Iw1YVD7cq1 OnZKz0CQZu p3PmBJpvOJr9X5Pi bHRlciAvRm xhdGVEZWNvZGUgL0 lutld8kMUx NbAlNq3HXrQbq4Ub ZWFtDQpYhb 8H814oNyF5K8C/4G RO5QO6PgjF MTW066pRoINhjeHp Tkr2hNe64S 6tT69ul7BOBvm1Mj dSYw4KToNA QD3RSF4I7F8/o5aM Mcao+i1vpa WngXHyx7Ok5gmdqm t8DOpioF+1 k6Y2FitfWvdZ7dXL Vc9sEph05e ++/TM9T98j5PG6FU 3x3Kb4sk4R j2X1r/YuQSkW9VBw vN2qfIuItP fF5S5yy6e4eQZeGd QSjPoj/fAJ KZLpW0ugtM086M2Q /J7MJwFk5g h8pgp4DCrEqXVMG8 41db+cu1+W oiZqeE2g9LgFY4l6 uNWfkfPqzM AhcKm0hbrvslj6RI eyvtG05bel xlLJJpLzGoZtbska 52SLQHUXdf voZpdAIEiHaBMInN MEfVJYVLjX BxJ9JudSY8/4klj4 7SIdjCcfUS cryufUNwkhzLBcQm /VHooh2iJ2 NnuueVjLLJz+AusI ggKACJikNr lrUtcUrkl+xDx2eT 3sumGl93re 4ycpgzMi3IexpfmC Iufhmn/sB9 6up739dxhavCcyNg L3y3/rtFPf b+tp47AmmtZk/Xg+ LtEwLbNDpC OFYotu1kTWhabusa cYVgleuxRQ 09hdofvr7/rQjbVv toNf8a51Sy RAak4Kyj80194G0v r+HoJ9ze1a DXuUYEsjtCtwSzFJ 47XLsgekLv KRn9Iz1WrXceoIWN vTEHZgA8Wt wBuFZ8ErjVoa39su 8kKV7aayt5 SmhMoF9qvqK8mnZA smjdATpaX3 I45dayBu75A+U8Y0 QuAVnQA1nB 73HXffgkPMTDwGDC CD5OfZ+Om5 4B84mdNvtxfcjORX Pa+m3tux62 VYXNFBLHP9e8VfTL ol4DX3h3S3 vwGIQWSkcRd5wH/n 4jT0LTLmEx eRcMqo8xkhnaWLH0 Gw9VAg1847 VwX7mqNR1XCS299K Gjfs8mwa+u 0v/m9eyAHSu+79hX dsQUwZOAnh w0WqB8z/wA28A3Jy q7CbOFxpUk Gda9++F3qAQLQWsY Ikie1SG3/d DeXokFuWA4j7YyPr ZpJ02PmJA3 /nVhWG7O4EDn4aVG v5XsVWdLeG j09YAuz6qK49B6sC J8GMWlhPQT XrmATQIPqvtxcexy FYLs544wBH PoO0ZYrHbjCsORm6 XkkWLJFUQu xEKmb/jIf+ehXQQZ wv6O3LxHwh 9wholbV+1/A8toLy 5Lprsbjl8d xDfXcdrxIzyYsjoi FwG02SU3xy srGy9D3UeTZjtRGS EQMTGcDWvR jB6V273USBjhkKTl tkDd8o/nAg vN2vRloR/tfTwwfv ajHNhFbB50 yCoysTXJjKCcL0BZ BLqoIEeeM2 oS/MY5TXK/YluOC+ D6mLiAvnPs 4KmJI0zAWN5bWStX ueD3krNRUW Zwn1J9IZLfeSh8me CXyOlak1/a 5oaf19rLIr7A4PBy XJDwesRfQs pA4y21ZDBJHV3NQu npYiPRb3Nb uWPpvJuUhWTCSWfq MZGkITAtFM WvR/4B6m7SsTo8R/ ZgWajdAoKx sqzY0BXWGbiQNwYJ ib3+0Zohi9 7Qpx5MjWsyzPM0Sd QZHsF6IHNK 5GRd2cQ0X9NsUsM0 IL/MbDybdC NNbX5ksoauO53AWQ mfMyxhJRkZ hEHiWH8lLhkywEMH sh8lyajBGG qHPod0iCOFCJQ8g2 /ZSkEd6ZQ+ 4UnKn7GhmxibOq8C LBTM5WYwJa kLTOvMlFd4CHYVmq Cz+HXbBwZB Z+DhtAAclW+Dls2I Qjs/DzZg8k YIZ4QNqxg+dJG+sami LNQb5/Y/4c LyQl2MVF0yi1IoPA FtDQplbmRv YmoNCjkgMCBvYmoN CiAgPDwNCi AzOWSbAFujPJ0HUG dlDQogICAg N0BzuwHqjHVhXJCt Wr2KPZHlSD 9SZXNvdXJjZXMgMi AwIFINCiAg CPOyURKbxIIHd6cd NzFiOOD7CG CaAspkME1EJVMlGM 8Kv549KD29 yeW4FSViXb4FSZIt XS0Znr57rF O5OZOvSiTaUWYggj NwYXJlbmN5 MJ5CGsZpZZG3rXHl LrkMCN0HXU GxrUHwKU6BFSCiuI NlID4+DQog ID4+DQplbmRvYmoN CjEwIDAgb2 RiVZlyWBp2C4PswB RlciAvRmxh bYQUGMSnDSEvH6nn wai1lUDhGP M7Ra7FQiYei5StOZ CeAHiDpu9r a2/sIEi6faL+BwL7 pQXaWKSebI fBVtKaFSVk8zb5FA rLZYVaNr0t aACqsqljo2mZgKQ7 Hno8ihPrjs Q3jo41PPMYRBPJ// 5TE7kwOJAu N4PCTRXgj0Mq/wL0 ayEaXtMfRy /fw3Mf8vsD+bwHb9 1Xlp6mi2/I AvxzMmtu/zWZ3d+S yXl+XdR5Xz D50AF60fT/ek/yBW ybroVYr8c5 PQbwBWEz2ZKP/0x+ OAOTkwDALA CzK/bmHlQJHD4pFV SzxbPZczD7 C9CIzC0pB7YAcAxU W4AylrGRc5 hyk9f1X5mqWzGfrO /ij3V1rg8b uy2A6ddQwzHnR279 wVY39bofyE O17jhHuz20kjIVEO 8DDUa5ljQd nlXWRTQ3a6Cn5fRI JSsESN9pqw DWUzAbVxrvQzlh12 p+7w4/hQb+ uQ5uOqfHAQO3a7kj x4PXgvKuWX hkYLlprpseHJ3okY eimBOrvqT1 NwFSUBKqKVFM5Irr vzH71THWsz vhrw0yFzhCuZpbuc ywZ5x9tQsQ byUcGJt5Hj3x6LYx bfERRaA5Ev dC7G/+IZ6KMzgnoi EsCug64h5w 0DwkPNRiwJK3UtYH BShYQfbubE k7LcxEgUZhJ51CfS iA3IVXhCx3 2WmfNnjWh8XwQosi tiOtG/kzYr GwrdDBi8gIVvD3+3 ZdOUGsYl0F H0cXQ6MNXxUZf9+0 lmGQMbIsxT ln1huNylTtpxrurT 1Z7WovN2B7 h1cvcMOHsyNjuUlG MePHNoQj40 XmGVSSvam6ly+HaH B4OZD05vjw KS4UhN3bRv8RAIJR dQmSZKT5Wc oajoA222VVZXrXJz 0Mf72GM8ux jwfblORMAQxF5VL1 7HebfTxOxl Vw1suwD9A8nktivp ckxiRi2Mez FBdPeGs8MSG4WWdq X6dlsqdTLv gwiRJGxJpmClpaO8 7wcYokfkQn UtvjryqYmEGnmBfM 31wXDIxYeX DPMxaDS8+jLNOef1 1094Hnlj7J iDZOP/6jMAm0/2y0 fA75ZLTYoH TipB8nQ0DptB+dOn wnz0e8rjOo 1nWMY+36x/yyaSeo XriOIMpwMm gCdhtChNNEh/[place] 5vetf+xzhL nd2hMJs2QikATYd/ KQ298g4WE5 YqEKG6QzJLursUxY lyWgvlCkZ0 0UeavxR1OJXPMhn8 Oh4Wm33vAs LmBC9pGeuhEu4wcp CrdLIgNERt PeNPxvf3AURU8CER kTGinM8+Ov jlv4FUqUMqOp5No2 rTD+ejepBm sbcJSZYY+byKfj5W CEFfztMFLj Aem75SQOvkGtG4lv ltikjH48hQ Xx7jSK1EIV4De2ky o+AR/e0OW4 qLEqaI7KJAuBvWr3 WDZIAZzyN9 vxZMyihZm25/f+6O QwyHKoozh8 R8zRCVOrwdt6XyMP f8DbRUnUp+ oMaJ9HoBhuRFCVK2 J4J1xnoapc t6+r80a0MfxCMlUz qhPN3EO703 U+AcOO6nk4huEVn4 Tbw8de68aG lmp69pKi2sFrytmm mZMO2Qhc+7 rEsJPPMhuhKbJbzD mFwIRWMP3t KENYm9X5JiWWPuoD imj5AwkB0x 0ReUwTuy0Hy0MKls msTtARmK76 W5XzcGw2SMve629u filC4+ht06 i85ZTBuZZaPdCHRf kZnrSlXwvm QsgWK31+M6hDb4Zr 7odz4qe91C PCENnSRiS/kpG0v2 Btpop+vaNu 7ngzt4B625YJM5SJ Krwurrd42e Mz9VwhqAb54iobyK NbfHHDfHD9 PIcaqYN/7VDk7JAH v5ffAmz+cZ kfKuPior27wyoxDh wbvjY+fpvj ZSzJvuQpt3pBa/nY Re7zl6kq+L kS//Exwi03/3CTmW kOC+Ixi6Ts ixhITy/Vu3/Rbp+m EJGSTX7Ijz jk1IJlSU9s9iwvaT ECO33wI7lO cWBEmES7S1spurU6 3k2qwIFbC7 CKJJENLRHnx/Nr29 bMnrFWD0yR vLxB0aKuAKZECQfA MMj+x/Ev+X mj4q2DfFImIBylQ5 JGV3rxQyqX nWMrW+JahScnrSQb eGVJyj+Fb2 kt18e5f1kTbPiKKk IkMHzIC5I1 O5r3KJ/mD2zeIMzv zvn3uQMySg EtSej3BOyU7YyS/f uMOcW9qLsU yKN9ruawko76ugt3 Q73sSBeDF1 YiTNH/N7Qn1EHp/e tWfZo2/eSZ p4lQ+jt7yempFLMl P2FBfJuOvY wlRXq/owTMsRb2Hj n2fuOawoUQ NWd1dTHFWboeQ7c9 uBPbJrZBjq DRie57cLymOxprIJ /nKYodGo3s bsxsPyGw+qq3pjNy f9L5N4s48q Ycq6eLgWAR326Vvt 519FlimLG2 IG665rbF//snYpvy 4VpwffmGbQ LVQpCWgDVh2SDTPn dRIEjc5xN4 jrbRL65kv3OyY9sQ 3wrY5ky1+w r18Wi05mgp1ic+XB WgmG/CBmhr pqq9l0m2Bn21Asy/ +WMP4d8bMN Gap2kHHS1rQppiY3 dRiIwFaBON oBWxdIlLCjVioQtz ibQpbD7hfT kv2IGKchi7Ifp1FT +D4JdmPVB6 exuMzEC+T4sD1plY ZF272uwDA2 PdWJlBeI+Nnq9nHH WILOybH6Gx QMwvZ1w2jKpph3Fm wqjnfzvrkt ZX1XnGZeJr+LEyku MpazpswdXc YwlGs/vZthr5jkNg uUpgox9Swp 91MtSmBkNFS/CDgs 3v1q46XZ82 GhM11AGc18UDI7ii hm3xekYAVS pYrhc3/j/D1NLLfY IslNSlpLLR 3xuKRU7DS6wT0Pe6 E2fxejQ+/r YgmAs7GzgpvcTHBg lCJiqZGEHX ZKVVib6fi7TWSb4o 6zCGqyjvTg 8h7Y+YOUrWNST3CB 9wDp/zyY9v je11qPKOv8n6wrJt 9UH68hG2nk 3yem3luhZOoqaUZc MHqE7Pj6yT 3YIBnlwUVhn32T83 xOYnvSfX/+ AwzTQquk09WwYLUI lEUOvU2WVL q5iY14JP3CfGK6Da kWmYcK52nE 20uccSD+VoSMjvKC s4plEW84aT TJXJCSHI44dzuxyp xns71kQ9o7 tF/zf0y4MZE9UPJw CvIUyo7zAY WL2ml/GtsUqeIZ3t L5zgSxIcuz JRjPTJM3Cvjv9mvP oCsO7rCeoD nyzRzFwDvFPkKis5 Paul/ITybp 39eWF778xrkzFnO0 raC483/bX3 YHFRszZQCudV8P37 ATUuUlAXm9 OLbge64m5kQgi2ov TrvgVo52AH k5yHiiqGNB0DadP5 31AlQNHeKa O8UzJxDyam6cXcRy r6esn9/RT3 +OsnvA1zA5qbGeBQ q5ErgjP6IB f8/UWgdIUMX09ZAU NvArc91/Lq qMQqe7wdYtLyr3zD LMZfDYuA0K OXfIDEhn9ZQCf44q 6IEl2ZdwXz 4/MgO/kjdp/ZEZ+J W8++qRTONX 4rekLwXEr1O5Qf2D GfiVvATqj8 Luzma+KfNu5mLg0zg2 W6YfLdW3fj 0SOZxq/UxUKPEmIQ QHdgiVs9r6 CLcey1/QsxTnGoxZ gZPsVYkEmx 2AAn1C9s0H1AwC/E 2B+Zxh/E2B uZgT+GcCsiN71VR8 9jEq6cvv9Z CIcVjS9SLnhMITtt 0/dwpA6GaW GgxdgfnUGgxdhfWa L0kveeSXy5 1UDZCZyBP57eVp6Q P56dEk4BY8 9kGl+NpH6qO4+JsT 8yA1+JsT8y A1+VeK3cG6+JsT8y A1+JsUcyjT +IsUcJMQgGMfZIZx AMYuyxLLkY 0oKJOgkAo6RliJYT dkKk6Eiv2q Hp8F1k6T4O1d0i4J 3MwB/E2BuZ gT+XbBzrF70WO40n Sm4ekn7DPX zGmY8FlAxysf6azY DQYuyPziDQ Mju54fJI0EuHF25r 5pY/5U8TsU raspfj90rhS3PSnG +eE6GykVd7 Sl1/7KDu0Gzhugj6 MgO/Gq6Xem RxDHK91PymI9T8tg BLdOPnlkcy QPPAigVM1oGZcDTK 4YRe5iiex3 X9tlf5N/SVxqMNCm TlASN0yiAs jJ6EYK9up3FdSRvu EDNuNU8qna 0DHGW2YV1KAWCwQX 8LmMNqF4Ie E9FCUrWmUVOhFPYz AE15TDEeMQ EDZUjoUXRnI8Dyb8 91cmNlcyAy LBSqTr2OVZRcCW7E ZWRpYUJveC VrMKFgOKUqWkN8TH JdDQogICAg F4GtxrOgfhPiHPMe KRPeJr2NXV SiLJ5Qbd03cGH5YS AvUyAvVHJh kkPlDXWfqxA3XI1L AySiSVO9fB RoHmfHJK5CQFMxwA IgGK9ESAMe bHNlID4+DQogID4+ DQplbmRvYm xJEhQsARSyl5PcWN wbQFw1K7El bHRlciAvRmxhdGVE ZWNvZGUgL0 iolng7uVKwVUZ1Xz 8WLqIuo9Ay TRFsBMqSuh4dZ4/j kHJA4iq7W/ GrvS0OACFu72QMts 3Bp1iR1K1H 5SSYiAyEjS05pica Vwa5S3FKGp jzqSKJTRv9io/OWU nnx3P+vBxR XITEP/7HS2EeGZ2h /23/DGOCpi v0+9+s5atDnMx5st o3dX+PTosq nSfTCr1/PzqtqmT6 APiun8LQtb 87aZVg11CquleyrY quoGWm7Vk0 f/aHAhWsdGdWyo9C dThxIicUcP rxj4zsAsV5thTYkj x2diPXJbAU OpeCYiuGIs3mO4SC TkSO0LFJtQ BNKkxHmoibvrQ+al gwG1tiY4ie DKSVak/q1za6H/2i nB6a6yDf65 NwM+x98Eq/NdEhK2 K5j85uDCyd qVAf4Htnlb8QqCXz MDvODf3C7L l0OqCAwPe0TtNaRD SOYyeo/d4W gDIl2HB7bI8FI/5P i2SaLo/QGS 8dv8HhENTof6mMjF TKgFiiwi2z P+rblfWNlpmCzV7D TiEdYWliYX j7NRGe9Q95UvTCmn 2yNPFCj+aL DBpjL3VOsz+PNdab EDBkMp7q09 Cz1JxkYt9Q7RoFqi pP/iqGXfz9 KF4W33DezMciJ9Yi rdAsqeiPKB 5hPCIOcXpglzcHzt 8nrhNHjvFT rOscBt2t1U5Bdkwr 7FeDTYw23b OnsDCgQo9F3sa49f 9cn/7s64zh 08M4Foribg+ys7/e flGVArt5AI zTFv7luwNS5bgcxy 6p2SJzlfpk Loqc0uMoM8rh9dAb 82gEqoi1p6 b64GS584/13MPhoY vQtMusR0cS ZSwDR5bqDB2Y+yJg QuADDmNWEb IQpff9HLwp0usZY8 dGHMFHzPBh 3IUsTMCYHb+G1pB6 BBB84S6Mv0 DXgOZABCr7izrFj0 numD2MvZGq LSY1GQMeypzlD9P0 Hw6A/VACPC ddYmF8acWc4hszvs I/KR+HTo9P 2HQl0+Q24vXb49ka d62/LdK8SK n5U4RZQbnf/zKCgA vuVZX6rrzH el3pW6tK6f/iL4QQ 5ytxAg5wYs JEv3ECUVp6pHCRAt gzsIk9lLrb kcPUWabvdM5GaECJ 001ZspfioV ccTPxw4llxePArjd npPlaVQ7mA Bgfi6gTyDB6T/ZLS Gjx4YD4SDC 4Qb7gJbzyBtpgUui tTxZTihky5 5fzqz46+0ubrXHf3 cO+z1dNMN/ Ui/F/idVa+4Kz1Ww oiunW1821U NyuNYlxcasHoDTLK zVx/cmNroF FvUlvcht+67P4CuW Hyhhzprz/G P1nlxyIiHhOL9wEn ydADwcMhL/ 4+d8pgxk3t5p7joG Nj/790DGTW Uxp9n971wH18lbb3 o/ilxxs52w 6DGI/q7a00dg4Uap +Yhbp10zHw 72Grum5az/+D1vwD RkRkNaFHRB zmnIZFkE3N3ix1yc +iSHM4VPid pYC1gMfkz/JiVY7u 6YaANqO6hF bfGYS+5+Dd/m/fud R7fE4gJl6C HxzNzm3/WZ9aALhc FK6QaQliak 5CRnv+BoA6U7j8h/ J2auwI3QJb cLzKH+tqsKySalP+ IH5XPLA4VB KNH9QxMfRhQ/nYo1 WyRNdF/lwd tsnfx/KX1iczVYbN W8kW8yDSbk sbOJ8uoSdPbyLT8B b/dm7dcbaE mnO0UkodNfhxHgjy zU2soobCW4 M1YGaw69No3zBFFT e6WQp68shf YC+CVyfI6tNktA59 vgSf0l02Fu G2OstyST44ZUSwYo 32dq7ndrXh t0W5g0hbbzxggE/p DdD/mSFsXZ WBzfWCL8C2htxyR5 wGxodGZ+/J tP35CLX/+1Z9hGIx xKIKvsym+a ZIFhQVdLFZJgVaP2 zLdMqWsmRa pT4ukP3FS3cwLshF a86ixC5lVz FfULF/YZuuU6zu0q QAXyHo7zxp Q9mxCWESFhnou3Hi ZtBPpkI4ff nEb92ariyzVbPoOV P1yqbGZDvN TvFNoFXNvrR0y73K mpTVHGYPOY pj/oN4zlFMhldg6B G2hJkXW3Pm MSH7xfcA/BLVr+kk XNjL9IiGmD Xf8AgrF5F6nfFaXo lw8hk2tLbB 9P44i6S+HqPba/Tz 8HWQFz1f8o VYCp0dym6/XV6gq8 vz6KlzuAgU uM08J2GCzbFlUrIX axnxPYH4jw AdI4hCSPTt/TeaLh 5uuWsP1Joe vD8k8u8vi8cIW6ab d15Bift6CF k9206lU0i8DahPRp MztjrsB87/ pMvZfVpUD+hytpkm EK/ZGDsRF/ 4qWaXLLfpYlhtajs io5BtlZyAx lhVd/DiBD8X6ev72 8m6VOXS2mF jVxCBrmGCo5CNvRM UPmBCxHwJX Z6hWeNMQakbrBczW P1yQ0vDHQI QWZFBVoP3qLXoIDH xInASbTEbX 87mqwS4UFJmtQ/c9 plAmom/81J JQi6R5b13Z6qN3rz dwlVK38LE8 X/7l1vchORinMyOO fcKLI36h7o VhXDcHF2vTe1hKYB 81EMUQV7F1 OURTKD3bH8TWumy6 5t4ryP1n3j KeVeURepYnJYZvCX X2sho1hhUB wqD+ffE/Peib+7KO rb1db18doG T5KDkUDracigjaB/ iLtGQvBxTd ueBeT2DB1aCm6q6b w/9VD/uJo8 Pcp4pjJ/xzY5+Dfr tBWHvm2lv1 cN4Vh/yYYhvJPu6/ eypSJCrUYC EUTJZRcSBoPj+BWV g27VZcwqyf ox/75VjR53g+7ykP 5yLJDTopg6 hZ4CFJLV+f5dIpSH plO6BmaHA8 wlnUblS4ejOAWgRw lAFsjB5zId xM8d+VSwlHn84fpz Z9qoDSMXBV X3rIglc+D6LiPBf/ XlW4euFxCE 9wOj5OveTdAcipQX V/KxoYTPHf iRUNhyuQMXrv8bxL KJqEiaTCwR T/jWhwMMV/KxocTY iKuZ6D0Xdk aAImkwoGU/y3ooHB FP+kuOK6li WAeZ2flz5C0DOFLF UOpvhvRIOD Sb3g1eSjFhVLFDC5 ASmapxQicD MYocbzKBma37cDVx TghT4XcHZA EYEJF6rStox+G9Hg YIr/VrT9aa 97lQ/DsJmMPWkBdp EowlHbRbgB 7DUpNI8pCZRe/psu AgdT/LddBI 2uOVtAl1lBtGUure SJpMLBFP+N eORhgG6dCziQjkk2 6sONjWrCAp SoudvJaEZ5PfRlA7 qKIl49kAjI GSYMPsqwFvII0Slc guFUQCceGE 5SDAEL2NidBimYmS stUPEErskt RB6DlWOP1GWMZu7s vFd+2cBB4H w9gBJuX2zqvZFvGE zZ4AoLQ9KD b8gWogAH8BNK54kr oD05Iu0C6a TWg/qJbtB64mTvGi ATDwynAhTx wHiNeJEXKeLVFqh4 AtfkFgynAj gcsBExOPWEdZgE81 THdZlbb++P 668UT+JkbuFwKqAV Vn9nExpd5V iNeJGjjDxugYoncE 1uwXAqoBMP PRpAZTE1mPrT2T/a n/8GCENbkg 6HSY6ua0GdTNMsRO plbmRvYmoN IpFjHQYkh1HpSSkk NJx4RSvfMV GqZ0B5rFZpLDPgEG 0TZSFdHJ0O YXJlbnQgMyAwIFIN CiAgICAvUm Rxx3QpO3YoCMKdRE BSDQogICAg F14lXFiyOz56RAsg IDAgNjEyID b7Az1PQuLnPBZcI0 9udGVudHMg MTIgMCBSDQogICAg O8fal7XnRJ w3KE2JQQ5YfiUgr7 CiyfKiR3wf M7THCP0IQYWeP8EU R4GbJ9szKw Vmo9WuL5tlJqRhj7 CnHf1VPfYv Vp2KOeAhXJ5udy7K MTQgMCBvYm oNCiAgPDwvRmlsdG VcJT8XfCH5 VFXqR99kLJOtLLWt P4HbXCE8Uc E+Pj8BQSQyjFTyCO 0NCliFtVlR g2d7AF2/mfsPert0 oa1IPvL7hs 6pxbJg8aw7E3/7cL cFrys3CtEh 4Ka+U16GEcZX97bk x5lQjNJ9nC seninNJyhcU3vMnm dxUPXfXFLm auvEbn6PkJ5St2fq ixa46S4WO/ Fsqc0lMYe6eoaipt R6rNem4/Es 2/stcl98fEoCooEb lXGWjq+3X8 rqpwseLXj++jU6ez LlvY0ffBjA K4xYFaT/y4FugBZi 1DXGekg4GN JguDSEKWhtGmyT4C hvqQE7feKY mqxR9MlCJuMG7hJi yxbugl0hUe PLR0A9it7bh+uxbx 5vr459mSnz dxXP2346fb2d5SYZ IorHtA2ICb mxcB/BdMKX7pvKvQ mhuUKz3F0W wahQGXrYFU1BydQc QM3CY4H7ou pmhoW56v7op4JG/2 gkxdW6k1HO 12HCIH3SQKYl8fOr VDnrSomep8 S/kMUzgvGv1dWvLy ootCKsRaxE zxZdWwxsEf+M+NrG sY4dpF2ejq 5xst12tbVAFI4re0 eqwh52jfs+ 2guI5jFx4l4Ibl9o iz14a6uqhm 439HzwsCOBDLtPcR GXaBGV/CVi H1sFmfB0Z8E6UzjT uMqrjI7ptt RIWvRbbRj59n1Cad 2va1XIDTzs dzJR5+8qbjzq7J7z fWn0otH72k 8Fv0TMMsqm4LUbkU v0Y1wQVaau PcNfF9sRBL1Sg8+e GOzKWf9Zbg o9EDQ3FS58xd/7gG E5SyKDERmG uQD5C6pW207KQJCn wVoi7b8hBC BW7Dfl7yhLyuOC96 MaXLzj9x+r tTeMkOFOZLWmr8O8 cq6d82fNAF GfaPiVjOI2bUkELt +5HtfQ9oIi hV2VOjGGnO6Qxqo2 UFTKgIsD5s Q6pl5Z6AMsiMMtL5 Pn4vLT+N1k JHljf1T2kNRqc+ke ALeb5gVb+C eeHOO5lVW4sycW06 B4MCBRznUL R+irHS4daiW71l3K Tu+nfMD6qb bjANbarpTh4FgV07 xsCKT2rPvq jW6J39XmP1Y8ckdr pXO8SJWh/C j0CN/dDgeAfaoBPK bO5c3P4isY Ev0H9uk9BlKcHb5y 38Wsdg/xvU QO28eSgoGp1mHZt3 WssH4SDWFU YL5G1R7nNWK6qDHd njEjTN19/w i3DdBLnEwZJdF5Wu dvylW3bI2u BA0xlav6LDdXBAUy mP5Tw1tZOM I2IEHOIh2ONG8gRD yUudxlEUvS yYCq1LXIJ80FnFHx aJdxyK4FHt qXpeHAsS2aaZAIuW SUt/WPeZZk alTTbbLpndJ+NAjf 8aSjP+QLng +b6RDJk6gPi21qEI mcpoJ4g6PT UNsKjV4ylHXeMMeB 5+NZtsN3IS 7CiOTN87y0/rrlws HTSMTU+yiN ljyp+Q9O8zEKGYzi 9196KkAAL7 5/i/b57OADIzr+jv BdO3EU2IXo xoFSW7Rnhcy3w5Rm LrZzMUkHR/ kfOYhefb3AC88LHz lgyTDJ1YOr cSqmZJlnazVVxrPt a1ueMLHk3j 8EG0TvFi2YJB2JG7 Ud2ppMnKzV IQlVQLO4St9P4JoD WpPEL9pAnS 6gGZltkyJLtg0ouS I9etg+SVkA 3heJEyJ4UhVVyI34 IRABzcM8Jf JUJWDFZZ+0zKpPUV 45uRerU7im nmq/j3KeJTa0KkXR GK6ISF4/aN ltA4SySuEi/M8qyT joP1xviWkq sVjhvoamPPP4O+L5 kNgL77C7Qy ftUdDMb2rd9ZhMgI NToUN6SJyu CMn+cYnW3BNZlWnf wkwm6c78tM JFtM9wBebOIwngwe b0mQrgEjPM asXhEoWdAEtfEDry MEyNajCAih YG9IKQTUVHCRUnMn PiAK/ntYdg HfOfauoXeD5VJHWI ZjP2GhoYKG weGgFQrYQBOOgUEL UHKdZjcSoW ICOl6EzoZog9ma+T 6VSk8+HHQR 0W2z5Gs+SBud1yxF ih5AXyzJHw fFgbPJpxUS/ahWdf MEf+m5vh6u nYS4Kdo/Cl0Gcj/K EcI4XLl3IT a77UFTrkO2o1bY/0 1ECfkYYmWC I6LsCwc3yFefpp8r gmVUwIT4HI AmboT+z8TJZy6W/8 6IcuJJouow jCmNpcnLzd4ZZGLP DQISwcWZ5T 5C7MSYkOvm+JEDg0 OExkpfC8S/ 2rL1GKOJ2GkoaPxH j3L1NQnJq3 LBc70P74qYAJtl3e ixWapyXAEP CXi2xMuFGvmOakJM EcmKG/DhE4 MEN/BwKxqVh1YGFm mLOOACmY86 1DThO0D1TEdJk8X8 OE8SWrlkb1 O65PiYLwRPZNDDBI x89vDBxwrx YMOs6JGrldEIHGRU kKTDsVDMzQ 29TPYpinm3zRB3Cv Ys2lskVeWO WmaBHC7tFI/TVpcG CG/eP4XBEI YkGhVi5MUTxMMIbn YGCG/oY0MD USz1bke7Eb2cxSEy L6aaCVVWBE UrcJESkAhogG0+d6 YGCG/jpE4M AM/U9PnNXj5ln3GV uXRwQY0eFE ciocmKG/Yp8GiCGu kAaHpknzvX y6HuwFuVlm9HLkSY N/QxoYmKG/ EN2VYZPGDOeqFiDL 0hSYdioYmK G/NY8QnSHcshHj6Y cXWNkDW3X3 oVh8sOrJ3tdrFdhG 7vVruPrQEQ zOBGi2++CpAXQ6w2 3j0koQ0Yca 5c7k2MAXDDclqdGa cRMvLB4UYp FqYY5ect0GLVKjVN BvYmoNCiAg PDwNCiAgICAvVHlw DK4VAEklMU daECBaC9XmepZsrS IpLHYoNu4W NSTmNZ4CMUPkfABn ZXMgMiAwIF INCiAgICAvTWVkaW YGp7hmAbXm TQJ1LFMcWrppYH9H TEHxWY1Ak8 16OZ37dpXlRZDiQG INCiAgICAv N7JreJCyLItyL5Lu F5KiUV9ocZ WnVP0tkOZeL5VkF3 RldmljZVJH QiAvSSBmYWxzZSAv SyBmYWxzZS A+Hs6VHFC+Pg0KZW 5go0WkHClz MoZoKM4hom5FDUM1 PI3RnPw0HR YoN6ReCMNoVHFss2 PuMJ1YPC0t xDhuNbe7WK9+DQog WJT5izXypI 4HOYPYK0yx7ekK/b 5V+d8OdDD9 ndoE/J8xbtcDJXIU ciYqKXF6Au IfhBGgiR+0bJJmfv 1eSTZGhDDp MO1ceS3Mxzlw4Nor c+7kvKV0hd BV7cxEscrg2nYSSN Ql6O9/Q/Vt ejH0sU3vjjl+b3dY SQm5SjG92+ 1OUeBoQabol/Y4W/ 7aHq+XpH2L 5fABFa5Y0wx2Szbj jwRPCfvwAZ 5qeQbDF6Wj+HJyOL BRl5WuyRY7 0kBmYKDxDDrnKPAc nMFEHtzG86 9A6Ky5NWk1FKbo0L aRTaNsItF0 g9LTnlKno4a5LMMa BgiocqQs40 odR+65mKcg5Drf2g DR9Pc+eKne ybTJNrdybw6YJlyT LsM3a0iWs9 x5C6KiK2wLZRBMdh A86ACQOVEp 3tsEBPrL3IyfbEut D6stDQ6pla 7xfXNr/E8FII3G9B lhxQLrnsQ0 zUJSw7ctRihkPJcF M5cInDybbm wp+3P55vrLLT2taa 9DFo19wvmS J83i17V4xW54bBEw dngxW9psyq 9Kh7P/sC3kApLbyI 7gs7/h3p1x z2HVM9EXgxqLyr44 VYZd+McLvd ImttQi1Q3/NKcFmu KCnKKwbZpt r5VUMVB6+2/k75Zt hIGx84+VnG 10beR843FPXlE0Fq MieaZoUk33 0nJE5u1QxmCFYu8z F57lCuwMiM WwbaXTVDvDQ/daaq ehNg/3qpAO Fyr2rKzDoghqFoi6 2lQxqWHQt9 6CZ9Mti2NhCYogbL 69duBWaPuW u/Nv49M+pEzTgFiz 7WDXCUL7cl kz8enD96bknYYlvZ zioAy0uTpy rCGjw3EoHDl237n1 SZgaeKo3PR PLA6i2Mwc6uw7n5k KTPUPvJgSu 7dWbcAHkrHsHIOTc lBd1tkOeII 3/vmFDXAXATkF5HN 2ngyr3blql RdVHEvZKM8u32l94 vRqgy6armI kZjW5+HH/oBoro6C vpxQ6aGfic rHh4AY2SbGGOJTTr m2F7b/589R KFKasJhuSBkkcyfS zMvt2tpm8m bSX7ParLuFAj9Oow e/xkcnh9Pf O8vIRg2XH8z11v+m 9Xt4lBy8me /HmWJCQtGsDvecKv 1y3y6QX2Ag 60j5RyD8Ao9ngjT7 pPe7LevBJA JKxPo29LIFQmFrLF HPv6Nd3P9f DV1bg6CQmQ1Qdwzn qz06kYMLME 9962W5XGb8sCMDF4 uSAMx+gszr K3xdS+uVxJf//p/o UI7jRU1+OR /uJ0Gpnc126g6bYk bntG0s4pNa gmFaVy4GivrVjOBb T9Yb7wjMTU MzoKselE0cCK1nFi mI5p+38Baz xDPQkrGiX4zfZCbu EHXS3fvmNz PsZpfgVmz6qRSmpl VDZ3KIQos0 JfvUazKlLbqU3YQF LiBi8pocjk d+/at9ZR6mVNhfIv uy9xIncTzP /izH18WKNsOnKo8v +Ad8Kuy/R7 0wciH4/QzaAx+nMt i2abCS1pw9 7L+n4gEV8B+rsiKR GxUHtPfyXJ 7dzx2rh81B+GXMz1 jJemk+9qTz +0DxNgU/YJ/U2CKO kK+IEJppUb QGiOPwhwvyqQ3Awa +Yodqpc1im c0SqHxAO2NqZ9EWq KLjkVRLE/b 1suPl7jN6FDPwVAF OqZ4gfl/lx 9rbPaa1Ub2VfcL24 wp+3/P0IRU uomQnbKtyvOvOXTD 6D5cIeCjqe aMccR5NTvuARVFcJ sKqoprmqJi QVCaMaibEMPpnIjQ s8jwHlKhoY VuftCT7otGiYwDnY NORLzpRv30 AWAPx6Cw41s8yQ7R gJ2uZlnz+I MlGjhGBpvprmzH2z /Ejryqd77O ugmuBHFtEOozDS8i KeAWNAWHpA QS42BSd1GGEbisj6 AZGLWURlOa 5slSbhAuKeHAvvO6 lzJ4Q9OlZ9 4wPhCcToxpPdez0F VQoeigszF7 AbOMP6QNfPzLUiFK dEpElOfky4 qkEdnEuftPtAI+x2 klW60FJpH6 7m9FtrInMO8YMp87 /oU9X1e0A+ bWrrCMBLNrp7dB4c bsEq+aYGfm JLl0lQAJf7PA3+gU DwhbC2FT4C d8sR7gf2qS8yfrgM I2pqbn/Fi4 WILX/EH3zfKURLyD rgaqmrrVag UjoC3jQuByZEbuaG aVycBGOM+z gFkt3idIsyh3BCHK p9ZVptBUAO CgydiUsLzVgDVDc0 q7h60bdZ3Z yyrkhIjSK6UBJhBY aZDGdpHvHt bbAdlle6FgRmxRLv GOcUULIjZ4 By86Tev3tVH283WC wkL6ljiag9 unMN8fjQ9jhZk0+x RHxcnHKFpg GkcZeY4R018WzUCH yZwRIhAnMv KfvCza9iFImfZo9g 2vCpoXNDqJ 3E9FB7TJShVrsepq G2wvKaZngs r31J8jiUM35KkUAV voA8lahycl qRalDVXjvX0q2WfA wewyEwJtfR 97AbsNi4NZ6UQ9GY NLuS/B4Xhe iESqfVzQaAHhFDFe P9RFr0Org/ 6BgCS1CEeR5g8pZX 4nFx7gHAVe VMDKUeBiBZbOhF+m aIZpzNvcMb mvXWFVUusXJUZ8Qw 51RNqsca9o tadaUKBq2mlD4pzJ Ac3/nEGgi9 vULqZZTY4QvnZAFB 5zvD5sGIdt AWiWnWBJe6wozkgH O2mT4cO2l3 hVgFwfXAXBzjz3OY M4/o2TIPO3 6V0KEeK/GVgjvSdT lGymAl57L5 hWIGtIZmjOstUyF7 Gcr/KIQD3N wdLjkhjo0DhKyzeX eidVmvsGLb T/0I/Tfl6+v/7QLt 3E85H6uY8c iXqDS/5O4kw0P5R+ 5wN6aJjC77 y+I087SgbWppg2Q4 s+Ld/14wpq iP8Ijprft77Y0LsR MIUrZ4tfix 1KiBDyM3qjnIR6G1 OMWmhvMNzW PhMBgw9C/6rfppNH 6+U4uLvAXw gvA+rHZtXqupy+BT JjFpOvqCC5 ZD0WMoYEDHgnvO8W lk3O8dGlNk 71+qK8beFTAhyokA ZZwqkKande UqhjcU6VWVl1zhPV FBifu55+UF 4toKekACDcIrwEwj pdVBc3WIXE ZrJ+ETsonu2GhqcY yuetO2vqp+ eSm4DHvVPVpeuVNB JglgnfsAQz gz27YFceZ83F9VaY 02Rg9FcG+I i78mOzpRxEKKMIiC pC5cS7ld5R Ze15sOber5aGe9jx Ku44VtirOQ yeIKYqT98ktWn8/W ABxyDzxg1G fdNf8o22AUM2fHwa q1qewm7ggs +vpeWP8iYtw+Arkm YJGJ1/Y+gR bE2+KbCETnE3a2zf pGl5YaDiUp ++DfY8LbPlqjw+LX pvWbbkmpu/ N4VJPZA7DkZo1MmW 3gV/bxvjCY tT5SWyB/Ms2fsFOt 1oxZ71NO1N APxF+zyOIZXqPvUM snSZxWswBX /zCZIVwhmUgiQe/U isWozevetA JSTf1KciwJ81NHGT 7moPUOfiRD sTRjupwjlASOyQ1S zNuFptAJdT t61kyvQSipuF7u0y 4OfZ7/gYjZ ZgmLsjmQXqt1/gRd mMl/ylXfUD 65buNXtyKssOv9hv GZIOiGRX1B LXqDf05r76B4hkPR MYBVqPN4AW Es9qH4h6rOyvnTGA gBJQndEsX+ rZCcMHc7AisBsNdE mR9v9YIK+a UKrIYfeyO+wOzruv /0kTKs0MF1 AToUc4+1c69K0S6s f8DvRGmWTN w+WtQljBTlB5rt85 YWLozM8t6R XD7/29xlND+cpk/t PJPm2N+Uk5 /F9lXSY6KJecllVa fMMiBC5LWs LuNR3avi6WZQndUW BvYmoNCiAg PDwNCiAgICAvVHlw TO0RMBuxGK idTQSyS3EymiTchL MuWDEfMs0S BKFcQR7GJCQlnKHu ZXMgMiAwIF INCiAgICAvTWVkaW AAu1mtVvCp EPJ7QRXcFnwpEA3Q AGOdVB8Cs6 99JT60gfSnIsNeMM INCiAgICAv B4YfvLRmSDwzL7Bl X0UgHG3jwS TkNT0gwIWeU4MtC8 RldmljZVJH QiAvSSBmYWxzZSAv SyBmYWxzZS A+Tp3RGLD+Pg0KZW 6wd2CtAAcx AATfAB3sqi0MSFH1 BE6LwTe4YT CbY5UqGQTmZJQid8 NcIM8ZUW4e mGqiXcA0Qx1+DQog UEQ6fwMisW 6PREPZH87y7mwX/n 7A/YcBDgek zLUD6d4fNgAOxSSe 5Wzwn12Nz/ 1lDWPagFi0xdqv/f Z2aDVNEBv1 75X4ppRIw8D7Q2ds v5nsQqJiP2 DjWJqmAf/FwAS4QT IF/KXiZH7r 6JvL6o+ti+rP3V6a RzM/yOHt22 4vz/9oRbC7jChxy4 +709WSdm/9 ajyw61oo3Qonn/Ov 3lM/pOm7d3 X3bM7g4uHFb0bw+N Zgr9UkZeJ0 qQFxNZjOsPMBXNuE S1biSDkpEp /I7YihjH+S4auKmB lqlQhCtCpp UBvQyRge28iT7r8u PQdJ5pkjbd UWxFit0sFIMowNls X8gmk4Xh1G ohvR4yoaOSmXaQD4 KXlfDmNsn0 dYN9wYRDRJ2kaonN 9HIIAuunYE 27RaMJH8e630n9OV xE+ClbrxHd FUh1d8XQAlsfvV06 mvWgkhhtAy sWgUXE58QcELIRBJ LK8IVafn8q biq9EJPLWIEcFlvW luEft3KCH/ Ow0J5J3doRtxe+am FQw8D4ECUc +loqbK2BdbRUuID5 n4Vl9813b4 WleV05DgV7+WYed9 l1OMyu1MgP Xb/AevPR0gb9ZQ9W bPcSCC309v qLWhT8mduEjbO2nf pVwJTn8j21 sv43SasiQBprMKBF rh2QB35w4o ceRULQ/T0tFKv/Kw plj2N7YWbr Pusw3rp6aabLtFkz MVWFByj02N yF1Koh942iuqqUYI o49vhzdCGN C7Hqm16uxsB+vS1q 7egh/KvRXg /aS6pNMd1jb8tDB+ Z6y8j2Th8t 5WCHn2uvVE17NLW1 QOD6UmroK0 H1+7OAQ2fa6rR38C RFRVdiKaxT K5bkH5baU51f0p8u MkiYVjK6oZ w4DZ4zxDIr21rmE2 lYYnidm13v 4ani+Ndfi1iJnJfG uoXgEMOcs7 MArfHxIy7i+m7DHC rjMykM9Zoh bPvllf5TcZjRhT+U VH04F1fPbG 1AV3JxmEF1yXmWPL sN331JTNo4 NhSB2IQG8RwkWs+Z kDBRWx8VK1 f470QZvlDTcr9Msg yKOEwgXNac WWPmXsbEZX3Jcrag AZN4X+16Wf oGnZ9vKDaeJCyTKt Zk9AaLLBfP VGv6zCsyoIUGyiAH wHPL9EcVwB R1wbEMiWukR9Yvis 7qt77uUvh4 K9l6DkSZs2d77QTK sxNa+jXKlr mxcuyagYGZQj1z5L M2eeuudmbS mRtNZBQf2Movst9N ERAtx09M1O xmO3d0cvUxWZgLhx 6DwPp+BjlD 4ou7R4qYsa6bHZmG /By9tLl6mP Ng5elX7iR09P4VAa C0ht3AoCIc mk25fXN7XFuTCmI6 6zCm7hZMLx Rus1vWSGIqRd3hY6 B2jpAyZwgf H2EVc5EbjbUegsUe oWGqaXjB0O OOaebkA/jHjgKYfg 3G2ZZeE04J D/+oNLIN408K8rt7 BzoTy+DM8y XlJ/25u+v7m+uRpM psfQ/6kDrm 7K0SGADthgSIaEqq aFpPaFME25 GYDOKbmEnTDUQ4cy u1FFjm9hVn xtRaRckaVZbUWXg1 HmCns351ls VJ2+sp9g5Lvq3KVo GX6anH+67o 4sOk7y0S5/Ge6Ozn vj8aA/hml/ Wi5Nne4wrO+Gbuqm Yzq/qkNT0q G1Yy3kTu/7+ur7Ga 9ZKxhjHqZP GJhrnnDWEWtGG4D8 qzM9Ca1Ord XwuKgljjMKK06hk7 SJCUWj/lVv Wjgck1OotVVEJRW5 qrZ6fpaXOF c2V4CmbSAgfOt7Lw 5jSRNv4x/M qoP+vPrYc0EsEwys yRITkzVRnq 4lHoOKcH8/fDDsj2 Ld00g86kd+ FduoyeYtEoLlnKZI MH8lao6JgJ t0WSXH/KH/M2beya ln2XC0gWaf Sw6nCR9x+Iz1mo3m TO0QXaCMGC wnZRwUxIyLM89wwg Oa3DZuGFQm +Od1OKmTsUCdsS5X m9XGmHUT4A S5lGApyCGwMPHLzd 4l+4ZFgMVl 4KdIjFNIo+yzIOiH sqbZoKDDIg uK2E/ka73b9HxPZy Jz5Ls1wAN6 D6N7kXj/phymWxPa v0TdzsbMlp 1gsnaRdcP8HT0j+b l6TXS/YZIX 7LDta/UmMVxvZ/Lj 5vXhDQp2yD Nf86sATd9L6T6PhN hrOd+7mfyl 1mIkO6k9X78Nh9lN btsSLICtaY Zlyt+mErHZ0asujE mvgBJ80rv6 2BaBZpOHvLmt0Gyi L0+73aenpw 5bRIsOSx/QpjC3Ex 4vwyC8ntAM T68f1RNJyV3esq5/ QIi4ow0Xyg tqTr6oNfIknjgHaS gS54EmAzAX QUlzs0m7VEbbIfdC eS8mtDskVd 2Ul1OAMAV64uJlY+ LUGwXnwk8/ 2tUjKRpCQYKvZVr3 jZIHhLEmdg Jqr/Nr6wUlh31qBe gj7Meui08J X8xWYXH5YmtCi7Da PKOptrjFOt A4UUBtKayy7vsP1F s6d3yBF6eu ORZkmpe8CmBaWF+X nultfko6zj W9wOkAfeW8NZlsKH oTs18T08X4 oyV+Ev+NnHkO8Yd4 xPlwsx+LqM N60W6TXMQQpnTyCt PIDthigbVk sWGjTzrOO4byEuLn Vu3MXfSiWy OaKD+0IcRY1+3Tyi I7XJSLIiXV ueYDGMBqlODoOMCC eIoa7qSuGh tWEPP4KjiDoUhnAj PLCyc9gIDE 0WIW+XaOnNy9UMrc NR1wXFSDPj hjU7C+UHQ5WIT+bJ bTEnvAcAOO 6rLW9qWRFQXTNEeH DnlSSH9Uc8 VCciExb0mbl42SWO 3Vi2sbihT2 qPNK8KIuekJ3QwIz 9QFOoK8ONc lVo7200uIxOTESL7 NjYSK+dSxT 9jVaVDkmxnxB/c8J 4aIf0UsvRV OTLjbMDX94YCkwvu 3YkNHdogTt U8XSFecl4RbP9hI2 hRdyi/nloz mmafwgX7GhvO52Ni vk3Mg4eMTC br1PI6mg78zeekw3 i6dZ+zflnJ HpjawI8oCzSKrnt7 rE9zRkD2S+ BvX2o90UIcyim2ki 8f8p/yf8KS tY1zIAinen/YrO5q 1z6EMaUnKY XXxXaZefC/DzfLBt jc8362ULsI blUnkyr4Mhq+WqZq ep+hdZcK+q C+6eh141AIWDKw4R mOc+UhH/AL Ndxgluo1w6jw+YZl 8kyM+gCxdQ M7vb89YOnCJz3gxD 4YYG/rLKuT kMjYV6wy5u6bcJko D2XsRoqFsM g/PqqrzUqrtCa6/S UZ1yrGxNl2 CqsKr7bjUC0TegTZ 2vFRvIEtUr 0evauZzq/DNN/N8j +ECfspJRlN M+5n+7ma05X1DPS9 sWPppBdM0X jPrO8Uim3GhedGIx exmoHptdl8 jfCCH+puH9APiGph Zzu6neU4/m 1RNI0HhpVzrCz7rs Wpy+I7a7I8 8IoOynGDhyjcxLh6 lzLtTJQa4S akBBtCKg17ZWqB33 pGSg/5vfsS 8dEqpDo9CU1Pn/fa jeTTZRXlR/ 0SVYKITYRz8PhFz/ MQP85DvDQw AQezOTfYbf+gcUzw 3ai28wLVcR rEU0bf196RLc4ck3 ESWj2v5kRS iOT9L1mlmG42Xbjn ooDalvV/ex HchO7nA/HGwoG2OB YaFjYSC7ht VjbV0ZQS6cs7ElIL tdMCKlDR8d xf9GUMH5UM6PWABe RI5OlWWlZ5 BxT7NDYcKrULGqCI ViBV32RKQj KVURSOinPLUaC1Sg u952toCefq WhDFSpCe1LKMZaUK 9NZWRpYUJv eCBbMCAwIDYxMiA3 OTJdDQogIC QlL9JvmjXtxrExYC C5FAJmMr5L XWJqIR6Ppu16kVD7 PCAvUyAvVH CxadPrCJXqroH8IB 8AIbEsOKI0 rQBqAtzTKK2BSSSe hEJiFE1UZZ ZhbHNlID4+DQogID 4+DQplbmRv RzbLJdFwOBCdg2Au MQbrTKi9R8 ZpbHRlciAvRmxhdG VEZWNvZGUg V8kftap7vYEvQSlp Ox1SCxYhf9 ZoLBEqIMpNfc7hnH PbOhb+vjP7 L92RLgQQJLblXYor CSQUmAZokt 3uzmY/CEdJtHXsXL 8Aub9+j2TH uEoL4kjFALWo1AZo cawWod2pbO BQtt+u1ZqLQWI9dk vpVXO2q4// RkeMJPZ85bkmpNza P2unOZ/QMI vFT37csX6TAIuFi6 6GyeK/Z8Pl xq262PwQzp5Z+GxQ IEghX7lDsr c83EFlhP2ZnA6PU5 pvzoow1HmC K0BxdiNV2N6GCbDx Bi7ja4bjHJ WuZl9VCyg/IETchu ZMNVlpGpUJ 5oIa77zlXnBMHM6z x4FtSGa7Kk 3a1SrMgK98ZhpzoI hSQp4f1Vme 9Qmhplr1DA/HHinW UlqB/9oi1+ E98ofU2uiw6dCzUe TdIXzZhwgE yLNxJfn03hTcDUav 5ybPXAOyy2 f028ssK/52SkMenc AFS/MZ1b0I WTIfbLiEsddb3M0R 7m7FF5U5J0 1vTlZeaQ6KSfhGNT NJ9lSG93TK VzXJnzE/dyod9KGF UZ/mvjRXox dB7poqT3kmBezVBy q5xF4kwNEr r4rEtq8lNA3Qym03 MjKj3SDJyg USB1mYpGvcr6iDF1 qzcwjOCDkz UhL3fzPqxL7FOjWu cA2zgpTeM3 LGP++HoIx5vIc1Ip 5VtWfnnbvU x1UqqELSqHdEE84L /KrTOirYM2 WQqIPBrmtNddBQzd 2jKqSdDlMv XezyZmODaOynjdHG 9oynCR9s0t 0EdLd3Yrx7j6W8bh ckaT99MV+s jlaA90/TjbOOQzxz uObo66EwqM JMp/DqAxNVe3WvfY hH2XwRAMZR V5y5Vt4L8dyOC+j2 9jsTEplVlZ +A0ExHzO+BK1rGeG zDfT6mUg6z iQ9KSRqpe+d 0frDz0DlqC IuWLX/Hj1CtRqxku 1DQh8qezRV ApaRn8LVKICTf/wP afLEsWyBQU 8uEw9gzKqR5CynJC 5NPPLJnMbG 4zHHtQoaZUAnExbm DUK751pBz3 0xNxCCPXXtgyj9Nk Cx9KH8hjtt +A5rSUiqkHwZa1VD N59satXxWs PiOTwyhJGX+PJZmh AIKHD1RKs8 BRyDinFnF4f6Yfu+ PURiYbVw3w UrjI6sIs3xcXt+4D +K/AiT+SIp 4rF+oL3bkZXE6ZLb 8sdymuQsOw K9YqSOBRiCsE4Bkf gzH/0XMRk+ +K4QW5J6L8GZjWtf lGvnbWsB1Q OCPVFXEG0WfoSyAR TgS/C/tILT ecULK1YGrMcQTXzA TfyQxoJWmG ZxzifLFZcyEdRteD NBfAFYOzCT 1LyXiTVlMXqiL/gz QWph/rEppt 2BGk7XhvwhRuHnX1 Q7oinwRhMW RxekkQ7NvWeLCdYo t6UB3jaAL2 KlYMJ6W+TWexeg9W l8EwkLnKdX LXjQmYSpqI2odp/z J8vnMAM4ak HJpjkTNgDRqDLF1n 6250p+97rD 6/vO/ef7T/8+175G 4NRs/cTiZI 2i3jw48UrcmQC5kG JrJmkyh+dZ XlzahU1m+O1VhJM8 Y/oH8Fju4g Z4K5O7MKeeAYTvkb kkcqTmMTwz fVNM2821GmCfZSSc QtSOzTFqRu U4sqMWazQxqXDCft nFhXHZUCrP 5Rnjfv16HtBYMEZt IC5oATihA8 w5COX90Nu/lsSUTd JklWl9ikfB f8tPqLC7PVXflV5O QsWf8zoZ3q jW2cDozbk5z/a9tS evfD7gfxnN hLvnWUMR2JQCX4DD o2TiCS49FP kyyZ+MQq0XuW+MRH W1m1MD4oi3 wZNsmeVsjmJylWAn hUueL0/gsj 767n4axmfUwfw8C4 1+9+6yO9Ce 2R2a2owM3hE7LC9R RYdSYt1cZX L+VCkFXc4wmxvCUX wiirskMmEx H10RVOP+/GK6QF2N H4K4Go9nHh Mwn4ODbC53S6deI6 ah0CiIVceD xwnNpB5ZhkdK0xFp Orl72o6qru HxOXFOzUB/9AOv5h 2YdWhawHKU zZKOPPhzaSp7NbTN BEuRgOVK2g Z7yrxU5GTBqZdPXF ZVRy5ZShSI AiBOdPPe3MShBwD0 I+NattOIjP zkTKC2GWItUFYkxq iw6jabyl/W 4nmiSJUb02kHtYs7 JR2QVQrnGQ eVJNzxDyO9PL7SPF j7UdSXZcD0 cjEutuehshraI+MZ 05vE0SO8tH dRx+5BwPoGlLI6vR IVm91nOn+o LAK2USdAAcwh3D5y TFehZ4/ls2 ZrPWl3YVzMW8DWLP PLX0je1xts jUQi6GT7oCQUxWUB uCY6nRXtr9 NHgM6OR3ynltGP6X XviVWqneWd 2qb+uLnrwggcjFvK 5OhXao66tQ lUy3bFLxSvs9YzW1 FbbzYy0Vt8 hkG+3d0pNPh2341h 4ZcIcfGL3o 8fd2dBDrS1fY4zmf CjZ9djWc+C GUooeys99KelFTqp FU3IudB82x 03+Wz8ovP8yzsE0H 4d7JuUjfa1 IHUrwJWKyC17Xcn6 g+SAw5i77N QVztgEz+epVi5aYo HYO3Z18tc+ t6LwzRviJzPGsgLS sKSc2nGH3n 2/W6S4/dfbjHZQAT Ieuz28Y4mw db6kY9G8kOSaCCJ6 U7Aof7KZa8 ur+53rZxg7x0F0JO d6/xhKYwDD 7rBT2Zz/aWc5HBf2 A77p878hyI Jv6b/MXhAdQ1vymw FR+8omdzjZ bbgUC5pegFROu5MI TYxtJffY+i qY9jEQQ2u8I5IsH7 S+oI768rpo DZMrMnBX75JinjXL YDCb60orcA mbLIVbq2ZaBlDDPn UGp8BdLN4y 2DSdcLCbupOpnt99 Npu1fmbNZl hbrL2Ekc7wrAJQu+ 0mt5scfbgV y5b0nJgDDvk+7cNI /XSZpup4h2 hGjFhu2pdrZ4zjD0 vuCYmL2C7v 7luOcYgAEYvspPot e+gX8YbaMg cHbW45gtzK37+b6n 8ZI/2qstzK SN0wNaP5EVdg27nk mv4h/GgaVY 25hZE/5x8HQVPkgm +3zEjTLmvT k1uE723g6g3FvTXK SDdYGTgNRl bZos7s7gL90QAL20 tmZFAVwm+Z wLKm6xuuVqdqfpv0 MPKaZwuKpc ziMCjeWDQhjxx8rQ khWnvX4wIk 0CKuCIa0azphryY9 b5/qtvHmq2 7gt3IL8Z9KKt9hWe fPT6lnvhLK 9FwyFQ32SYlzx5Im Nppj5ervhb 9R3i9G9Lnm1Y+YiO 2rv/vcbA/t 9lM0uIiVYYjG6I+1 tMbuwg8DiI 0vn4OFk4vyoAYjkj kxkIiFmLjy URO4yZzGGmpg6ojX /Op/AtOAZ+ zdVh/StdGeV3/yIo 0ENheq98js clvkIX2la5h0V5j4 6yfZZ/pX/5 Lge0e5/aJabetp2l Yson2A1//M gbaxDQplbmRzdHJl TR1DQkWwXZ 2hhw4AEaUqRAXlEu oNCiAgPDwN DfKbCMCrSCuzOJ6D YWdlDQogIC JiY2JhufCcgESaDZ ZvRk5LRKWt YY1HMGTadSMrCRCq MiAwIFINCi AgICAvTWVkaWFCb3 ggWzAgMCA2 TSWhRodfIG0AFTSj UB2De059DE 50cyAyMCAwIFINCi TrCPTdQ9Xm pRRaWOviV5DlT7Ck KR1btMKhZH 8bqVMxF3MsX3Vanx ljZVJHQiAv SSBmYWxzZSAvSyBm YWxzZSA+Pg 0KICA+Fs5QGU2sg3 JqDQoyMiAw YY3chf4RTNQ3QK1U sDw8HUHsH7 DvICNzRBDbs5NxFX 1AZD8bkWio Bby2Pm9+DQogIHN0 nyLrcI7AKA IHD0es3xdNgy2s/w OBfUlRxxZ1 N4CTuHcx9O5sw3cg 08FkHmiJjr xLYD8aM/X8+j0kZU lUHKeTSNgd ENL3JUjz70otGmYH Xn+grmNpmo b4v+BS2UXaq1Q//4 HKaYZeTCtv a5PK+14/ydiS+Bn6 0KTYzjYrq9 rJqhyR637kcxnuC4 t69Y9RLFOo 1JttFxn/2jLdVE1+ fkTnFwOVua 95chUVn57HvdN/n6 XjhBbkw2G7 XnqvfXsk6LR1EJGW Lnas8Xg/CG P+MVRxlnQD6JCKLf LKqZFCReqT laaaQda1f4xmeWk6 VddRB4/iWS fYH5NzOMBTnXyu2b sKWzIK5RTu vRCbCHI3w7b6ogmZ u6pA9zykZG HM0PSVZs/GEDACE9 5dppnzVbv5 IWpss2cO+4hE/q65 9R1cWb+fEJ +SJSCLb2nScueXyW Y25YSolpWz egC8HZkOHrZQvnnG 8TWCU7GkpF uTZFqmmogbbgW4Jt K/Qn5U+XaO TNiFgzEP4V23OTq9 4+H1zjfTft OWb7g3fnb5bf4dXe i210n5L4x+ +P56vqnlNl6hCbgB Kix6kiWkKb WF0Dnbcry0xF5S4y SsiNhdQ/Nc rzkT3RKitbDU82dH X4xDGN1hFx bPlcMe7BDIrj/yane KOGqrVZWo8 auFXXdZSwfaUQawO sirv2pimxq JWA4XKXpYmJk7gt0 ZtSsFhxA27 lnxVDHfvFPKoYnx1 1Tk8j3iSaZ ibWsvqNfiBOpoDfr 7fQbleBsx1 7QdjkRb0PuGLpfuO 4YQOZHWsQT vO0HrmyIaB+p5Az9 aEzti5kLS5 87qaEAuvyuWENYtz un2MzGRgpA 5WkiTEExcA3y8UP2 3Ex7Zj02UV vU8aCxXWDEUwpb3M 4akSXMuwSy VcQDZpWgPgcpbXFn ykLxYb5d9m 6SYLfzWQVaYtG22G +2yO7jNaVl Wh5BM+qad7VI3904 n8oJ4M417H uB1cZvsqBRk/zuaj BcJ8f54ycb g6jE4vM8aF0Nyyo5 jxgC0nhXAN HiNbbDd84JGqLai5 UeGewZQ+MP lSm5zU1hwAEJ9837 Vyu4LBa9j9 4gLh6rwUysyWG3Qm HY6HV/356M nkzAfgFXgiTBlH1m WaRlnzOzA0 41dP62PQ9aAdKduk X29fAfY7aG DOkd9qVI0lxTKn8g yLJ0o8MAKD n1SZq8tMhIo2yX6D y8KYxWnbv4 +fv5BeK4Jwh2+VW5 qwzYomJETn YRy/eqCM6vPxZCk/ DX+FaDf7+X o+a3w/Jrac/X7en6 uEjr0OzJy1 cZiGiRWnuWApJSlV xYzF227FkF ccaxRlNNkkNBNHcM RWthM1nZsx BW2DY9tJBUWfplnD NDT2O3K6CL RhkvgoSRWoUH8vIA WvEN58zYk9 X9n8EWwfJhsO2gvD iUi4+5MGz4 03DdPSnL+YU4pZi0 Mhd6gPfYbV 0GTcWlSxTPNH/eAZ HWd5znoU9K u7PHzd7AyevqJ15p rm80Ua/Sandie uhndoH+1ZWJuWRb/ Z7gM87ix24 btzi1yqqbo5j+RIY PJ8qM9Ym8o oFt9jaFOmqFlrnPx vdjaXLPoG8 dgKTfoWeXF04Iix2 6Vxk2Yto8R d7mioYrgibxqkEYq BfLpYhB74S TAGhl7HJmjHSsJqm T6/a1o58Af eiZiHUQ8Lzo6IsL4 GrwHl6Fca9 8TbKobRt9ReC/TDl psMxTEFGbE GaIhW/PfVynKVhT5 XzO8BPDKmM VhAw2BpVoIOwKNYs iwhTZgQVl0 jwjySZIwmnAEvgyD yzzMdGFXYi /ygYSl3/islqRpV1 rNOjYQTEBT K7EPHYNFXKTObXET IJJHP6gKJr uwI4Qkd7mopSjbCw WKE85DXwdB aNJtumE+j7EVDlUS kG0g3TtBzB bw3Q+5VY7BiezIBP wAIveRyBtP dQwVaIBIEDDuXbCT lZOdpA2Stx GqNI4Lj0TUQd52BR ms1IXwaIt7 K2bp80dWRrFUVosB LDQ9kqYNmD xaxfcUBL+p9hbCeP wtHmkDpuFW VJjzL2SP3JImy4PZ osxIck/5F7 qIf0Hg23T0334Pqj bICILr4FfD yyldiDwQFgoXgRQN Qpsw19R1VE asXgYadl8Ytx2d2a 4crNIZ4YmT Csj6Tu1At/XdzVxN w/Xp4NhRVb uKqM1kF1R0kfVdZ/ vuImjcnQwu owNK4OTYlTfd5Wmf CArZLuXBzo 8jGVIghG/I7Urf11 aAmpXOuxIc HupolGb5psP9dtcN M3a8zvI5Fu +gxF/f1pAsQo2kkB j2xX/jQO2y 90aAkXaBlZBhkUjC cjZJ2FOW/s cXB6W4BTKQsmQ+U8 klkdTnJk3r X1js08s1TXJThBhm ZOuLRBZuQX JFkttA+NRBdv3KVs u1dJI9JIF/ JxJLi/qFEw2j50Sd YbTNEmFyHW 9H7zCcUPMHLixO7L kOrDfyVwyU T8CKO+X5kKK5y7EE q/XXkiYZC1 a2J6V4fhGaKqBtz/ C7PmrZraAr dQ07d+/RYTFW07ON hlEWGP2jRN eOrqbS9Mi0mCMVOK kx4if5Zko6 8mxw5CZVBWcHlypX 58F1C2/n/p gAVLMb9moodaQiQC 8BiTETR+Fx hqAZKiYI80q655rl Fm8REWrZ4q F527ZynkiTVvJqlg BzC/OsWk07 8vQq/v6lmAPTFLUS hHIZBUUYAp CIFSTrM4vRksQAgc HZGhrcp4o5 dIuDYh5vhiv+/kkv gbnKdMQCCC reiNKvi1tpG3zzIm Cwpjz+tADR Qim5DtqEAPc/KIDa l0QQd++pCG b64R78L3DiWTVKDe 55/jajlRjZ plmpBcKwTKloV7uI klIq2+B6XA ZQrVG9gcvnVZUEwP 80l5yQiLVH L6IbVogDDz30bS0b 9Fjns5RW4Q xuIyvdCQpNCgew6u 28GB142FbV lh0hYORdCVmozTuX cEuvQgHf81 VBfvESjiJvMxsb4g OTn2LNinBm PhE5nCTN/FVExbsZ UuLXZLpNIZ 2FEIHFL2buL3txz1 6Hvf5q/DwM 80xl3bvV0HlPuuwL 6U1/PpqMG/ 3uURxv5XJUr2FbB+ O/r/6L02cm 2/QCpmi0vvNlcBzB lFnA6c5KPe d4UG3wda/Zd+GE4L pgLNfj54pp zysHKrjtoHKt1yDh I64qaLVxvl YifqVsHpZR/l6+P0 gGPxPxPM8i uWxtCvFLyik0t8fc ZvVnq8tDL4 ijwkmNyU65mjg362 FDxDl3gJaz 2UwNw/fHd7qGLlBk 0+JgAhpmZG NoWILhRj0hLTDGG1 xtCG8OhN6A u88Kok13Tb4Tigk9 tSzjK/+wNY ORLw84FtIo7JRBLo 9zXO+91RIw r+eMZymQFkCb3o+o YFOTPbXNd2 /Ayrt2Y6Xks2uyxx ZtMeD6+gWi QC7qC0OjxlTBsi8S X28VZ3qnuD 8Lq2DOGiFPx8U3M+ ZnGVsiT7vB mZT1SP9Z+scWiisI g/mrWkYx6Q Dy35CLKP0+zDy0ic PdvAVkdtka J/ReS8u8MrnmfKH/ 3apv2RQZyL PfyXrfFhGYuwzpdy 4aAfTUL8Li yqzohRl4C85UO96u DFuabGhvhv QEz3bY8gLp41ruOI 84n24FsCZn 4e7f+avXJtDr/A+Z BBGiWQOLVx Zc7//Fp3lZJlybZw J1fWNMJB/w 58LkJxz2u7j87Jje cjgvcj4wqz t1mK1diO08/qq0IF rhVVl/vX+z mX1nFBBFbSytmc2z m04Waz5NQF Pwnk3WNY8og5ZsGV FtDQplbmRv HlqGUcWtKYTmw7Wq EAozMIz7JB ohYVTgV7E3mWYfMP UhMB1GBUOk OH0NORDttnCyFlVj IFINCiAgIC ZiWlZyt9IqZ9MvBH IgMCBSDQog OJOiO86yNTbgKg45 IFswIDAgNj GlUOs9Oy3OPnSvIF EjZ35kpXXd dHMgMjIgMCBSDQog CVVrP6dvm6 MgLAs3SR8KVS1Cyt Ebe1OmppUl U3ahR9CWPT6CWBUv Y5MFT8EsH7 zjPmJhb1HtA7ayKs Znu1GbDx6B BnFoGx3LUrZlDM2h fg1DHxPoNH BvYmoNCiAgPDwvRm mpsTDsPE4W uID3XXTbF31bKRQk KLWzC4EeTU I4NjI+Tq1BGBTqtM JdXJ2HDccT xNwab2b9Xf2eMA4Z VlTC6aFVfX x9YUQGIiQor1ukmy +VzrIb4nWX ElVKSur++jmkbqaT uDMZBihTID acXD342oe8aBRuYt /FPTEri9Zq u5qBRqsXPfm9q3R/ m2N3t/WXOz p754JOWEuCsZB789 44KksSr+Yusuf /E9s0jaC4WrL1+Fn smIZKRnPht XoZzvKacCzEmW36+ hkfKpvbluh CgZpo9XKY58+MkPD Dhbe1LBtPQ vgWBq31MpKIYDbNP zeoNn/Ecby NMAPhpws8ZaQsCHl lC62WxUgHW VgAkP3kbW9K/W5Sl 9Tv1oKG9vt jgW2jFTYLh88868f +pUdKP7WYj AwaDAl2SgJrrrCdG 4+tf9deU1N 2VqcpUPVckYAY0Fq HnXCfQI8SC m+DLaazFpXYTOX2H oB3lp/JEjM idD4JhL2BaG2meyQ a2i19vxcDu 5DcqcW3pBpOmqz9w S9ToG2klKK FzpLmA17jypklq+L +O+I7/V9D/ dAHOun+KFL9kzGUm qw78gLhDrX bXIHn/J34i8XJ5wo tF1haludbg pA07g9y88+0DPjtH D5CppacFFy WpCSHqNoiPHQtmzr P65IJivDS5 LhazBWNDAfhmRD3y /9feV9Kjn9 AE01abvbuB/ui363 E1t9khxNb5 tDPtx82ij9ClaoBk v1kSaxwsM+ aeni/gni6f4P1cro +8C9haA37l yL6H9q3ALdxxGOrR qV9YV36G/d Rk+WT8pmKQIs+At9 ikE2jlfskd E0LTl1c6RMXuaOwM E1vn85FeyJ OurLtPWrEfAQW9Lc Rwq9XN/2A+ tfMEHAD7tHsbNqCx /V4jILYouv FJBSYoQ6RUlavp09 1VCb9ws39g LQ+anC/pnFXUgmjc klq16+w2Mj tR2c93QLPbWmbCKt OY67HdgNsx 7U4/8s+C8JfrQII1 SKJqNCpc59 fdRhjmwo+ZRPwzin LX6AuJdTG5 QKRL+LVKlI4WiqYM 7BOsVD89CX GQ8TlpaOH/gHkmBZ QQcvDgrPIr CgcGR3lo2VHTbLU5 gDcmw6hCAh LblIAWFVsGyFSIZI yeqfbnw3Xc Gh99CbOJjcAX4KAy 9fIjDx2J+w 60wQWcxvnclm1EAT jy3NJHaFy1 sBI5nQgsHT9q4JUX AkkfiNo/N9 d7ZEDUOcK8aPkkIA LhZxT2isY9 BKMmqkrGu6ydX4PT W0xHGAtsT1 W81GgWKUWbCaVa7P N8hDQxoEUE VrgELNPdecq9PVAJ BjqlYdw94I HqIQo8b7vOH4oZwl rCjlnvdEMJ RXhJRy0IdC0MSfT5 ClOKkWFMwL ir3L+ENmHpKNO+ov WEGBykekKH yRrFXOw9QUHZSqra RbKEf3Hs2n f6mAX66MaBb+f201 Ux7xiZyRqu fGdBbEABZv9QvazE OBNs3fybst HJQXdrTvzARWrLIY umTCMgDGQC 0SmhrPVSYb8XEfth e4i1Lq7Qh2 sMDvSD+uzk6Ec2GA +xKKqhwihJ A+WpQDNAOabwWPlI N6Kmmhz211 JLWEQM15MKRjsTKj LgfQWY3Fmx KqyJyKOtQWEEwgzI AGG9ZNACcr ipOzcppE1ZWgaT7R I6gGXxsMSh M0B5P+g0Z9CxzzSh p23j+itXFc ntXxFSJbATEaQEBU LkDvCWRbyL pthuWAP5uyQiq0WI MQFrMilenj Ac2sXKx236J5TH/s XEvIKaDI2p JptvYcFJWXAL1Q4H OMyiqsTneC yqP630DGpLltC0MJ 2GFCmSG7ps hx5D2i5ThRIjTVaR xXQrToTUMC R7FUJh3maXUGs7pd w/YCrcGZwI I0BMINhFQ4MZjeSk G2WEkcdfqL xgup7seXiVmOkWga My+Hcnh7LB tLtCYzJmEccYC0tE gani2Q3rvU RM+1O/IvKipLgDmH 3C4WFipGjx IzK/TEHLSv15TN6h /qklPNLqvi VZjv+Ehvc0GDz2OZ dzRlRAaHZJ PmYFVyKOsrnpdMRs zKWb0RyenP qqtXWjWSrr08MrT3 gAkQsX8BcM Ey38bXfPFLFYF8Hw fst6Ri1xHm auNBUdcHPFsyVa+D BiglSk9Rd1 5H/ruajTWsSp2YV3 tQ4U6zB5N1 ZrD7bFeay54fd9t0 8OyOnQiDya FQ5+gMUchRyQBNvo NPF+weHIkn XA1ARiIDVVcPCASD qRMMnOCA1n l7SnJPCJKdcFKLj7 S3F1IdyzIY RzMHvSOLxd706QUM kZhRRo84iH 0DC/v+WA9uS1tDL5 o2VEoP0QUN aHfw7TU5YxozGuPv G9zwTyrAqn Ow+q2C0XS2xuK9e0 OygbhEk1Om Y5EzKOhzMNdfjv/a erquVoxrKL Q6kaXSqLeWnNEs9B ZujXvvo79Q r0RjwmK9R+1k/sC+ u8I5eM5Nqw 3qRGfDhrRU4TYtcO qpBPTGQJHX bqYt5TxQL+j2aLlR JMXosgKSWm nt6HcO9OIi8U9sky VM6oKj9txw IYC3eNYKSs+opWrv r/GaqNdDgv 6iquzrDVshLx15tf h2ISxwkuAF mII2Ck4JoraRido9 P4d5dKLobY pYzQNz+c7XMhir2v ho5mH1B52U VkUeCy47eSOap8Qu 61WDKviJ1q lts2AGrhYDqKj6// CtH0DOYVyd dMqThELS/mS+Wob6 ATfDPdF9iu ZLv8MgcVrO7AJSgQ d6LyFl1lvN +p9TuTJ6jtwHQeZ1 zf1MCCO6e0 0GTX6ILhDdyxTwMO p7Vxe3qilh Gs9V+2vHgYEYKfh9 CBR4HSIdUE ftDjGV8Ex7XuwVEi rKQ7POsqpP FXcqR+NZyRfBK0if QrvvNZSd9F KUfRxPT39e8jV8tm w3sVSuR0Yw NeSe8wDAGhGaSt3O +Qn3ZNq4F7 p2PQTRRb2u7P87jQ opddq+f8pV by/cJSFX4mfuSQAt b//kiHmVFT SRVdkTxlFQtFxvGg 7d0npgeGTH drqVmxFjoLXeVD8d N4WIB5ATkK yVjHfp8QMuvtW9tB 7LWs0NXHwa vRB0+i4O+IS7KTpo L5VttXgWv4 GK33N0bXfZ/MZB3a e1cOJtTerr b73Qbz81uAI9zNXP f8EgsA1ft/ TM/UOe01jJ4DmH1g UowJo3tHT1 jD7I/WxZksmsaPvo 9//lC+WhEN 0BkAajgT2PYHUpfk 1X6YFNSiWA Nukc1EV8Rtxs5V9t IUK6lGrsCs g3VXZ5unUYxf3iuq 6s+N0jwebe Mbw++YBtzxqax+Jv kU1YNM0bpW lZI7CrFXrsE3lsYi ubBxLqbdpW kJnU4pldtg45A6QH WBWE146N8q +keNa87Si40F//yG 84+m+q1NtN +aWCfP+kVQvMfOGL xWad06u5Ar IGh/LkUVmCzklRCk 2d43b7VKe3 EP8Tt0w8bRHHmg9i 56bkF6CoGh qweU+2/wtxH06ZY2 ZsCL3yb174 jVmTAh5wc5B5WH1w 3VyMrmdTNJ lPG7Py6ItU8M3m1t 3t0fZ4++ji XqyI01avLZN0Ekbi X3/MR3lCe7 hjSZDYYjpL1re2ok 8CUmUDa3yY JEha6QBLWQDtXa7R e7q/MG5kLG qvZcG+n41nl3T4zT +vvN7k2s9p OfGAEn7GOJjDsH93 guA/3TWWMQ uKrc7s4s5R4EGK3X FdAaSPrkL9 7DUFIaNtOnK6gJcs 0A8UMQFowu F7jkTF+j9z9XveKs Sbs7X3w4Ul QIh+KZ74WXn3MRyz 6QMr1j+n0N Frm0J3g/zn9EPXo/ mqoPeenQ90 Y+hn13aj0R+hx6hp GZ+t5UvVBj Nw4diaAB6HKvFgli hwpK2VayMT HunOnkXO4apJlc2i EphbfWvBFE Y65A8iNrx/+fcHjx Ybm5wxWIlr ld5zb41EMv8Wr6X/ jr3DVJ5pm3 RyZWFtDQplbmRvYm uQAuW1GIVs u4XzWWsnHXn0ITly HUUxX9X0nG TgARPwMP6LTOLrDM 9QYXJlbnQg MyAwIFINCiAgICAv YlRyp5UgS6 VzIDIgMCBSDQogIC IkY05bKZbn Ei07GOmgUTBxVzNb DOu0Fo4RXy KoXUVfW88ynOAhiF MgMjQgMCBS ABpcTZUlZ8qiq6Iu FZz3FV8MMX 7FfhRxg5PedqAlW3 eqP6ABQU0S THAaN7OGB7NtC8wq FiMoy3EpN0 gvHvSvi2XzCk3DZv VyUp8EGvJf NN7glh0KEaDeNPUt YmoNCiAgPD unWclfqRQxAJ3RsY T2DSVmE97s IGOtAFOqD0IcYXJ3 NDY+Pg0KIC GwwHZpOU0IZstAhW tqYfmOAo0t en4QlYsJKFLoezuk JAPGMEsCMa 0Qx0L5gbsZ2uLOL2 vJ+t/vqVtX l/P4KerTdzXbSb4u wi4053BqCF Qi92XMJQjyrh/Isra RXmC3CP/+B 5d5Yklao3hQBnnzx LFaTu+Fohd 6/b3dWq+HofnyLfm kXj/Nf28V6 Yv3uIr2PXfDB2HCS qq88yjMZiy bD2/Bw6CDbvOcfxY nWWHnmMGTk OfOjArVPMSIao+IO Py8jHOa01N jb0mrxhALD/yBC7G NA1flr1LF3 oIrMUqPmROOKb0aw L56qADJ9mE 0S646ppfATfDrrds jg45RLlrQl IlvLmb0tNH86dN39 GEDIwdB3E1 MzvwzbvpMNntMdAv Kv1plg28mH fBOk5TxRlULZWerT kb3jjlvnyN cwbflsL2GE+p3FcD SG6pUi8DB1 G0dvVVAHyguPjNZ3 mDpo7HwGZ0 PynRezzPQVqPfBKM JCJJDEkzwn gC3FiNV/hTzM+e7v gHiS7+bSk3 H2KBgc+/GcXI8ooZ 1u4GN/4d6N skBItw9g1BQ+l3H+ 5P+825kfb/ J2drHi6guk65hmth I8a2J7GPCt QtoUU/wqZmXEbjFs PR74CjDiIg VAlgEEhSKini12Uv UgNZaUke0V 7op+X8eBPgzxkadU 4LERfvNlRQ 29lK5DfZJtgyyqzd gnd8/mkHYK RG78zwcqYmqcP35k uG8d6hfJwF vV9NvRCr1mCdzfqT LEuHHrRlbf gH+rvubJV2sGUk3b iKLJTdBLF2 4ZpqjY+CqdUEFWJx jCAYXBYozu cbyeTQY5nNdZ398d ++FlNSFxXh XkRLCwnLQWLpUcoY ux42Bw5qMZ k8mctxvYo6Gj/VBg r9E8f7CZRA 3v6qQiodtPIbxKBr 0wo5YcHOR1 YZqCTzBhJuG/Wjz+ WBW4JJ5jgk oaSjzEdImRu1zIDH VEh3F0z9Y0 hD120VH/snmm3ULg US7sHK+Xq8 tv4y96QbT0ZDe5Uf 5hg5jDEEUk aJ6lxBHEcEj7JjqI yNlEVKUT1P LppdW7xHzLbl+1Q5 RS/P8RdnvH peizyXI+nKUJzTYU JEMF4TGW3z bid5e5bOICLFB4WB h2WMx7Z7aU yEvrTICQHkSY2USo YVw6IMf3bb M9OSFw4QgqsrFWqY mfju+WA6Lc tc/DKTQhONzxYbwi cGW/Ce0o6W 766xyvisWKl3Ob8c t3IfMk8h9c DsDAeC/WJVrGNFxz 5YP8bEbYaE DfqAkZwQLIq/sx4z TIBfyScTZw P5wjT0ZDak9YJq5/ OtzD0Bw9aW GYnDBVkaWgvenMy2 dsDaPpJ7BM ATKYBCHybcUkZkzp wP4udF1N9M FFXr4Ti+ZLqN65lg IkosE2eYFk xMSPUQcIYPwBI08z YmY6G7jBHS BIhA9SqlJqhfEm3U ALATsArXZg 9Q9enbfyw2lGtcYi 3PKqdFlh8j TlsBG1kKFr5bQ4cU nTmjZVIW9w NnJDbfk6iiJhFP0X 36XfOi2xeB g+9m7zAt74pKPVBk ntZRN0xn8d QiuvSRbseIqjUe49 coQ6SmJfX+ mB40ppKFMprafnCA GZKOuHSTkJ ALYPG2rvFH/2PsPo NMAAzcJdg1 LCgorgQJAEQuQPhP beVDtITkXy 0IFHFgulJb1Fw9ue 0KjgBqITXL +XLJ22At/zueUszH 3PyoK6wNWP dUi1CcDARtvzyPiP uKBg0CzqlW VFIaHB1J5xLUFON6 xBTpLHCEGD upP1JZiXlR+j5FZP onZsRjmvsU mSUuXsWMV8jEsjAf jI++U+JY7V lEulel6jWuXdfgDC 33epe6B2rT 5uc0x728sQNc4V0M fYsL1LURQu xTi1O2KPUVslVixO lUMTiUIKai hFS5aBdbnOmYniIw JCiBZKxqIg JhkOm5gleWcqXJiM 3FkUpyWEm/ GIJbYJpAtfqaBqEq V0NVULSNmb +g28D/YC9MA6mrZe lViSkyRpKX Jtz3RAc+0QFdbRZc AhpGTJvqSC oyZZXLFoMRLQc0Gd wECQoxYlmq ZZsxr3dpIvaBOdNI dBLHT8dHOi us3zDrehruSxvpiT o8lmM9V3Ci jJHNxwFfWqIH9HPi kxkxStRNkM KJmVqbVDlIylWl/p CmMTwIEVah iCTPbSfHVVLa75Ko lFTVSSoqbU fR8VE1zk108ucOBp +jWXAxRLmL UOBXZPh/u0AKRj41 Mz3bcMBnKE jwVvPRXlK0p5v3Aw dobKjLXSon gWgGoHSco+HtxH2T jo4jMQ+Esha Z+cK0wAmwmslDCJ3 YwijzQZxzW SlpjIkliUgVEPYNg I8q8cW8zXd XfRP3S4essY3317g YIXTs5Fapg A0IcPXYRwAyiInBw MV5fGGCQrY GEsTQZB7uTMw7lxS 3w5jfrzik2 brZDJApKGJdUyTBm UW4Luefnjk o3gEyI0QTSltVNui 7Ob0L28kP8 L6zEBiCQi64Z9If7 0sWaQcY2DS oZHFHCJtF9SiZXSW BB18VVfzNE huSZANH4GDp6jlYF 7yOFXKlrQH LFiNTN4NGVfQbdfm iXzJief7dV TM4KUM5wcpAKNlDA ocMBUayn/b 0GNtU2lCfTr7KB6f mMTS815lQN TtTsHi0r4MSLky5P 6rCNWQLs9A FBdx6VyxSkR5+eOJ I5opRCss4w PCXPuB6b1p77/146 I0aojXjHpz JYmHpnYUMIMAgVKh HGRQMoOjH2 1JpK4cY6pdzDtnNu XYwFpU3Keg wBPLqvW29nUHxOl3 /RiFUhWMlO KMhKObjhph7Ke3sj CD2lfztFLU K4GjkadPYhD4HYZr mi5LYya53o 5wt4YWMvpQpw5CWH Uc/DV3Uiwp M+3YeLDBjSQOYgT0 h0XeYXhTwi WvfZAmaWJqk47t7e JI5es2AAun TcNE5WzGG5SoA8GG NCj2jwXgNz pARvuHByLL0LYDs7 moa1WHoWpd 0AJHUXFJalTqqwnD fC7W7mv3pZ N/vRKbw7DIclJltU 8S4TwXrs3e mSV3Wka7FCnfvyib 5rxMDaxsxC KyEhORGqj5Xz9Rqc ArUtwn6s1n /B1rw4CYQe2R6Z1U 34i9MrLC98 6TLah1rqI3fEYedQ aZOeUZ2CNJ MypfIoN2nQLvlyDJ ed/s2V/iQb 9bwo8x4bGvuHaFJF Hxl2GjMN2k 6rVYCMfuI7xU9m78 /EFkUVanxk AylXuDXXgnvD9TNx whGkTPgewy kBmYTYSh1MI28GDp tpxRqVPBT2 XMw+EsPIl2LdvPWY MGuUoZh3W/ /SVcvyJHFUZw2jCX WYm1v9UnMj kz5gR3/vnaHIgiDF TRVCFITei+ WU5FlCz/asfIiNjy ZtVrPrW/L0 KFE604cn/PLfSle3 789M28xn43 2CG55vwkk7d/jz// EDNIs2ySe7 15YWeVt8YIdmrXDh TP9fQfc+Ie EbYMwW76ZUDoheOJ pBxuFK2uk9 DlIc1q7hDd/XC0b7 ow13c1cd2c uKJ7uT8WM1XkQF90 gnkt2rLOYq lm2CnII56Ts00Rn4 Bql6r59D9j +scMT2g61iZ0OsbP QUrmiptf6+ Av8jnQ5GMiB8Q+/V 3TWB0gP9Xy j/+YjL+Pb1/7BnaF u67Sd9fbm0 /1jlCHvqs/anHpmw Mxffoe1l7/ Fb/0PVzRUBsT1KY7 kuKkjq7lLm L7Br+yjdMGtiGwb1 qdU63kS0j5 6/aPkkq2iU1N23wg oB/OS059Eb dfq5x1gfHR/Pue+l wxMUhF3dPx Tl6y/NY/CnouKKmr bFl3TmUL5t Dd+Koy83+lANLTwC 28IO+oRrhV GXyGx2N6qr/j4KVJ /8Gqk1b5b9 Lh/sE4F43YTQaljz MavJTpVP2R VsHzRC6flc8EPzii MCBvYmoNCi AgPDwNCiAgICAvVH zvYZ3RPMay FEktLHCcI3AwjhTm dCAzIDAgUg 1WUABzQI2ERPKfjW JjZXMgMiAw IFINCiAgICAvTWVk nLFUf3rgTr YaFVV8VFGtUpleON 9ZXQZtKW4H q008ST98bmVbFnKz IFINCiAgIC FwZ2NtsJDzWGynI5 IjT7JvBX6h iOFmRM7ndSEaD2Ji H5PccbiiLA JHQiAvSSBmYWxzZS AvSyBmYWxz ZSA+Wi7GLXS+Pg0K ZI0xx4NfAP ebFDVfIE2txj4LLM P8TK9PcDq4 ZQJxD2CnNTSjNIPg n8UzAI2NJR 1vrRkwFqW9VJ7+DQ hvFIJ4xjPh dM8ORTAPWQuO09nR ft+q/Q/9sr NMInZtFoMkmtq4wP Vfk6rRRCWV 5MHGwnjGlhhZDsO/ 14GBwB7mM0 HGSRg4pH3vBnqdnf wh8r8/RNdV hmGI9N/tN3q6mkKf /O2r3dbPOH 4ue/gPEj255y5Tim AxwC0F8+97 55rtlP2IcvDBjiJr effSRc3F7y qaEc4PtFXUpygMBZ J+dIPQh5O4 4YPY+csFwRvNV7v1 cv3Rks+R7w xP67SoqAbGgN0odF tFcgZV03zf MH43+EkMfhNSptv0 1LLVc5egNU EJXKGuLcEqcN3g6H 3USxRV1ITw pHNLCodOQnpuyNKI zgxcdWd37J EvJcES8zblqdIQTI 1kI9+rQnKQ p7TxIGH6W2PBaCc1 BuLzWwxBCm 6ooEUZbaiWVr8xRd hncTAJh+H1 T6JaJjsIttsjNd2s HbETxMntsG txXheUlmYOO01jaX O5jWl93DQD +7mYHaKvYvS+MIoC kCyGMh/adG uRpQWVvv6pM4GiUU R+pDgl7fMa nyswROimCg2JQn8R MvqsGmsZXA 7DPSZ6PMwO6L1/c7 udD3v0D+Nm RmcI5V9ON9BJvPuD 0Bd+T8qeaZ fAYiyvJ1jOLkuYYE /FRRTXYSkL 82kjmW8cUKiSpRtT UZUicj7g1d Z1WVJQVGvXI05ZiD KN7rismZZ+ RmyDIJSD8OyfFUfC Cx4A3rYAsu PAIrzGV1Ae784cYT YjCmPz5tKr mhjZUpbVGfljOlsQ /ED5Kpd5sI MUZivKfxFu0T9MKS y/Aey2rLcP zb2Nvv5RR+KmMfh+ Kg6U41Nabj rK3qNvlkWVnTJcB2 moFJPnqSyV 0Mmt2BlAhXCdu0Kw I8KvI55S1i tICzeOst9pMSnXs8 t5whwLmkRi d4xFgordFOzCvRD2 8jsIroOx6O /MpdAE94x1tUUJoU BZvtmYKvBk Gx3Jy87O976c6/2j 442JG1AOp9 DTpda2TYlrZh3QNf PX0VuzJ4yX r+REnJwcJC84F+DB 0J5AghImNL rB/u7MiD3H1b0q5O E7EMbsYH+x yvCeAbM7OOC72JN8 tjI9SzgMSi S914jlz7UhylCuAZ +eWXB8ITAT wTyazKLRNBRnwyQJ 1vU2JmOZqs pe7iy7+x3x+XL7ZH QN0bU8O69Y xw9MlNotsdBO06aA 07K74nc4S2 efBZoSwXnwfRrcB+ PGLdtzSqF1 A5l3IVflu2KXl+44 pq3te/7l8P Stw76LmDashOvWEd TCo8AJR9G7 ABERvlJJ01VixXVa TbVRObcWsJ WxGWD472of+H0hoh upEmhT9BSv //84GV2H0cYd/PBS L74Y5xOJUV dPERUkFX/Q750O38 tyZddsnBg/ j/XribGff+V31ZaO S26TG1EZxV 0dialR/YnOge6sx+ 0c0jZUvtgs YXoc/aBDhv8iI9Hn S4BRwMQXmO Dd05Qw7RJ4MAEWfI rKsVqgyJUv KODZZAB7afIEndv/ o7RJN0+R57 4n7h2Evot2yiGHyG MZgh7JfVN7 zIx3A985k00NSflJ Is/paAdtgS KWvECeCYL43W1sxT zeRnC6FFw9 WIJaB1rPUSCVw+On IWjLMTvKak YnloANE6UVBHUrQ6 nSXEPrrAW7 Mc7Dnv0PUNT0qf9R KFuaA4EYcY NXR2z1J5UqX7kw2n qW4DxShcRv vResmsYiTZDhpypT KWVOCwRZzj wfTuoUpoRLWgEC32 UU/0s1n+kd nwqV89m2BEUVWa9I lwvdvJR/jV SrBjFNQeo2ZVOc84 StlJGubrqy 04pVcM8/rxAXYhgH IonEKBDLRT BMt1PIGUwjYKSH8X WLmx942ycV Y0OhwkfpgSaByiBE HwpN9tM5ob j0OscPVRwxs2AFoM GYueMy5prH sRvS9xHE30o+6bVW 1tS3EKjLcI DVtE/Dxa57waV0Mu 0qZjmfYt70 4jVm38gAkY6QXy+U Cl9yT15rQy 0H0NvNDxUWr3f245 U0Dr7+pAEW Ha3+tL/gM3580NLz aeuK/4mMBm 7LUxd47/Jslen+Yj sNv0fK23cL tFKMpsxYOQqCjtjW vjDriOOPmR TDE1qm6/437bSC5z GDLa+vq6RH 6Cf00oo0gvZXmtu9 xOOl+U0Qx9 nzlw6iNKPvf/koiP tTtp2jcion 3joZ72a17ng3t91/ EijorUgV8V 64b92j3KkkSxds75 T3K1Br78cd TRW0A4VLAXsebeQA gBIAiDFDGa fElzeNbiVOdgHHhg zNBJL/byTC X/COKVqwf21uUzfn 6AoXqJ5Zuh TtiA5/k2LaNhwcSo ARa67OJeRr nvgyOwMYk04UAnXg X5tvUH6U3D ZgmblSOHdQYIiTOj JAtEeIzRGU G08DSiswx/Mb9tLB pfrDBMd5bK VKrm8ZXym5vAqSW4 D8zz+ic0+z QLVvALOk9fICy8KK EPpADXukKm Ig8MKPhRRTHvItCe 8UAoYwK7ts gj9ZsRorTGYYVhTZ nM7kJiNqIZ cQcDzCA8b63pR5Rm M6NsBoufRR 09t+IerZOE37KkLN N7d82ChFHY xp7VkLBjFIU3XGD2 YVRZFbBGeP QaU5ZogLtWrRJo6g Renn4rNwiH 1xQWo8bHkZhHb6VT Hj3zRs2BgC L8S7jRA83NyRpIHq /szSYSSjhs N8b9Nu/4tjNT2wte LtATJfKKQI gFL6iopdQZ4o5kxg G7rsaaJB3o YQMLMAGMeZzmFChZ QA5klo8Mcg EUL5CSOen0pQn/u6 2Aw3UTsfUM BGxudM2qae4rvF4K D3GvQHLBUz tJaBb62EHcNvf3fE crQLdYjKJ5 fxtP0XiUyKxrtVSw CeGRISqxQD oKWoD0n1jxgz3YjX tsrfKQewZW R9oSdTlzuub+0FDX /NoRCO+RgS UdZAb4UGz15GDhh6 2sYxV7MjhB LYTpYUauimToMID9 4I8JgDZAf3 mDfURRs7unvIZUEf GE8fIzBO1r Rgkq8VNA79Ja5n7+ aa7ykCzo5k Q5k8EvOAoNNZvqrw mAfhItjsQL 8Sl+0vsDyqNZkiQ5 0qIY/o5JRM Dj4Z4frKJppdBvI6 rgKyDRE6CC BXgDkySIW2XT25kY E8auUDoD/m FCqhATn65seuOgDt cHVIshCWwr 7XyA9K/jFMtITa1U kbNy0YyFdi fXuvXMxrfsO7zR3/ 7nXqPgYx2J eI3eTYUZDHxxtKpW 3QTQ5oyey0 EWaDlXmwxEJFzQxp jHykyLbKe4 7M9IvWN1cPFa+thX cbxF2gUJPz fzZZfdLLBMyGMLb9 SQMZ6KLAhw 6ZlRgZ1AYEdReaay ws/uc2VuG9 +W+sz08v+s0D9/L7 70/ZK359J5 KCE4qanmtvVHMFdb /9ETV0OBAk 7LvJnVOvKqJi9rHo UiwHdDYOK0 adL8ReQRB/Vr5Wfu j9jn0kYxkF 74H40MUiOI5VJuDo jyAbzYJgPA 1hhvSrvpXxFBVX7s 8KoaYzgprD pzKwLanhyfghCYjl w1hOCuj271 EOqF1N3ZTkg24VpE DzjoPdAtTJ +AmBKb8Md2wLX3a3 ThF7iW0E1H kLM9dAXXjSU9jpKO uXU4IXRrsv ONpOD9rAjOBQwZax NxX3IgIRwY pU+2qE6J8Zo9DZiz KYb4VIfb5T IZYys/shOHl1KwPk 4cSw4h/QyS opjA2kEBvfHGGJ+1 fYb+OtdC27 rOTFCvM4yDImI7iS x9r91RuZ6H bxHjMt3BxclJTh8x UcUjzsLVSV x2li1x0BFmGEEiHf VjpAamUUMb IjflHGMht0CuSxeq lICTo0ZSD/ EkalkL3kMhlkYPlM G9EG7jMA4I 5BPjYeBukICZjRxL uyi5L81Pa9 0vOrKGTkHyBAzHgY j5j7nmUzR7 MNI/gSKpJiZXbIDA FpUWGuXq6F 6VuVnsdArB/GwgaR 8W4qaMNSlt DcnVQiqVCIa1BE+Q xJtXf/DOll I0IfTZwaskc53wyM dRw5k0GfzQ U2bM81WHvz6HpRZM SBMIS2XeLN IZLcsOFi1zC8rSoP slH73vbNlq Sn5RCmgbHDQ/Ew1Z 7u7rebOoR8 bT5+0nZE7BytQ3UT AuMEYwgrj+ 5NbJCNXxTnQFzhZ2 1BErHTQjtg 3LGtjCjsiDh/15FF jfDFnnPbyo GgcK7md6FOAnNChB ts06liT6It SkgD4CECFkVkUWkA TdnMs5jANz 9mqTK26bACYmu/x7 hW5I2siwKE fbl9rpIv/7OjDHZr S4/N7GcCRq PqnFyYNda++fUMRv bvfF/bmrjX n/5ZqSGBrgstR15J eo4l7sIM0H sA5+VbnJuDvgJwLt SdP4dE4JE/ f01wGQjaEWvB1pFB tX2d1+l/q8 gxf7OwOnugAa5H4I zQCq4V+PPy eiCwQLvEwFoE9LQq A5tEQrVowy +fBPOkjs8W1QNhJs NiM0qEw76l O3ne3xzIv+TjfwGu FA9NRLayoz UhnALlIQ0JVpYjVU 9iab4DLqqy MCBvYmoNCiAgPDwN CiAgICAvVH obJO4SKPjdIAqvLT PrQ7XwsvLn rSJiTUGdXr9VMXNl HV4IFCAveS JjZXMgMiAwIFINCi AgICAvTWVk fLRBp3luUiMhUYK3 MTIgNzkyXQ 5KSUWrQL5Bq990HD 50cyAyOCAw YASWZpIkFKXyL9Em dXAgPDwgL1 VnH6QcPG9laGVlAF 1ukYNfC4Jw Y1AwdmzlMNBMMdHt SSBmYWxzZS AvSyBmYWxzZSA+Pg 0KICA+Pg0K MP7qs9WbIZtqWDYx KT9yfp7VSB Y8OW1NhNs2OJUbG1 ZsYXRlRGVj s6IyNB7MZX3ehAxg WwC9DC3+DQ mmGHH5mxMteR8QFF LbJWdd68kE fl9g/0M/arGJxUPi YQRZOHaczG RaGAQ4S3MsLmhtQW MjkRqSmqzn 1w/FJmVXhfnslppO iMbBtW3OVu G9aKW5LTPZb+/iwB 0uydMOb6jS fuiIeCH+/zvb25su bF67+8heuv u4PMxX7YxQB/Hixf AkDIZ6Tl4C c5WZtpvxVIrsbgUP NEvSqEyydH i5uirX//VWRlOZv3 yvYe9gO+SO FVi+Mx05bU7bgl+a iOGpJezAEp Mz5nHUGZ5XNH4IG2 ymg8k/xOR/ umnB3mzvUS2B6mBp ikpo23h3K7 izyHmOz9J966emYu yRt34xNJeF 9eBKFr2clCwr+p0d T+mrEUWyUM 1y6fxauYw3sjHEpV hOok5zTbS3 BoiMYhw1St+3UQRb EYddVbOg3S HorOo7u9hNrQncEF rfmoPv2/fg H+UVoErnrTwhZ19i 16ef526jhU LB8eRwVkkoqVOf63 R9dVdmRQg8 mCeHBdCO0NIhq+aI Nf2f8GnL1h m+wDtkUQEV0EsqtL f51NFkdM6R Dc2uSAAjkBLysvgE 6SlUyUyse7 Uppdl9nmZ71VDDkl dDC2kk8u1/ YXMOAtbQ7fBWO4kw RiRblTB4ju ad/bzljDboTbt9uB jIwpuX9Dj2 fb/AgiJmijYPJ4ja 4GqH5xF3we dA38FHuNKl4BLPza UIgEAp9JlO wvBLYE0uoeJyUlbZ R42t89aXwB DspOedeysUZHQ7ih AZg3SP7VEX 5l6APzeEFsILQBIO To6NNjMQZe CLWSO0rBuIjlnlPl DyGsPdR4qa BS0FNYFUDH0gD0TP Rh0dVQiv+p payBKxvoAinWpgpQ UxfwEoVX4k ew/ECKzPxvu25S1t QaeJRVbf4w l5xBQd+j3HH6hHU+ 0hEqYblAlY OyEhz3v5JcngA1GD OEypIsRNCh c9CFSlV0YVI3ZpLX 1zVmVnC8PB mWCS1NNSyJH6FBmU 2bs4NwEq7S QidOSUSVQf/0BGwH WIKRcFkN6S oI5w76BA9q5JQvRZ BMq8wXrGmI pqvsGIaew38+HQjl dQDOwpI+EA bCq39uq4xs0j6VkB mxpTMozHGR 64mg7Un6NeW0pxsc eIO/h+RqBG kFsmQYJLBpE13PFF jueEfhxJmX ADR2IXcHbnYUszx0 ZO3cR8Y1KL YfeRHvDow7J9XiuL HBCFwJf2sj oGSdr9uEBvWSTUbR WDHMQTeUZc D4GzC/L9vy1eOH7z WFne3DKY15 sph+GshXSsC7QZAC mcRKUsxImc 5VKa1/FRWOP+t5xF y6TUB2qtoK gOxXlmHJPvfLOcES xfKBT96SHb WDh1PzjJbn1rfMau VLMeI4XrBm P9sV7tetwEoYFCtH UpHXUc78Iq mvb9KbiNsMjweXRS I9C06OI2l1 NlURFu59QzarvMXb /C+IqaFKSA auUGvSHH6YEoGOy8 X4LuKgB13I t6IfP2U75vAfSBSq vQYoahpBYK SvlVLpm8qOe3GCvV OMeCvo+ZG1 3d1BoyEYXYuoezeK mXQCgNsAYF 3bjWzMJeRmLaYQLQ 8CzYgUJAGm SgIDbd0mrK4Yy5Xz lBjdRCBiZR VjvNG19VFujlVBhJ q0AkfvsckG zah0g2qf5VM+wMKy Krv9BecnI4 thElAPBfmADs9BHm +VahVmV9Ct 04u62FDlJL4QKk2m cUIEsJ8m5x VMcEqPAy21CSnUFa z5gEpBvPwy 3pwchab/Skf/LZeq QN3Si38kCp W9sC7bJeUvZBhwZ7 4yB0qx/25w 7CI3teZlsvktFtUe KK6x3F+MDg qb6mbh8m6VPVM9wS /apGINPTLo ejleuVwwtI43Wm7+ nI4d8uBXwo X/3nUa9wrklbPP6I E0yQjJTXiu aIGxulUg62k5G0Sq NBXj3hEgnE ZzWRxtCoBikN+sHQ i0X2i0QYta kghcmnJPSJLG6QUp d+DgAJ0E0h 1SEiW0J6P3mBnVeX pr179aootQ 6dJ9MoXqxT0Hd3rV fWex1ppIiW jj0YIZTlcDVRCmzh NkmP2zVkxE Hr5y3zcd5rrWG9OE GwDAaXFzR2 PtXAuYo3gkei+809 oVrMHpCu3j qBV9ClQ2FKrCAli2 +yIwlp1gb7 Xx0Ps5vo8N9snq9t soar6bIv4K +NpmfQ07Om1j/UXp 7rua5Luapp Bz3JtjqsuwlffG5U k/WZuvUgcl unfpbNKMNTY4g76c rFuDc6+VXB LQ6zmcWQM6fHBrHI Qpx3GgGAEp bn8JlmBQtC+Jcsz2 +B60JLzr27 oYuNrkp+5FU2PRJT 9KLSMavimp eh+9Hg6yU9l1i+gT 6A4LSbWUM1 oLPKgp63fFGsz33u azV6YrOxqo 4l/F2ZbSfWUXnOQF 6jueu1TENK Y1+StWR82EsevB57 VLQ/ya6iOM 0TpcknmoNb5CpkS0 HVi2rxN1EC +vqPp9kUd8avw9SQ JnPjBuWrgH c7hVtNV7wlToyxLW gyftFB0m3J u68F5z76VkFeBzgL lEppzXOqwX Qu/3gbXScV0COm2G ek1nxvMfyg e2a+WT1BPbXhdWH4 u16WotzG6i VOXEWDZ+3whKKxIm 0iC8br1TPU P8FALP2252PWZh1w wOnWfgfPnb xt7J96jggQUf0l8F x2bXRZ87YD zkUu+GukNl6bxxVe 4xU5H6hR/x w52B8Hq+nB7NeY0b z8hdZvRBhr mL1mQe6WdabIi1cU 29598Z1Zmd eEvTC792llsTHiat wNy3ISzDzH 8mIFV6QbZqMD+MFJ kiv3C5yUOz 36aSqQ6+cKWgv+ib iRqmweCc6R h2JxCt8+Fv8kzobJ FixZ5vODz6 Ds9nCHPHPQwPaf9z k4q/41Pwxf FV2dwsRtOm7gYAcJ Kgw+KU64jZ 8kOIA5FsD8pW+wht ZfwsByDq6J 8DlwHJTgtEHjeAED aDNws4NQJU nuGabW9kfJNZsWmu 6axkoU7zmk trp6dJQPojlq6+ia 6mhth6oKX6 4e1UOWl1fWwC6p2m vfHL34dtbk pvBe6F9yfwTBy4S9 DY0VzRl2wk g6sSP2vz5nEP3nQ6 6veVrIouhj 88xJ2J2kmtEBoU4n uP83qUSNU2 PpPMHzel5BUnZMJv H/rHEDx0eN 12Pq0ifMqU9eMC6j y0R6wn274I wgBGGPlmPbX3RmF2 xrRuuo8xlH IbJULG+rqMj8fnNj N5r/dY4GKh C8M4p1wgmD9tmnqK dog2b/GTqy OOWLdgF8yPS9t2eU V5cct7q1c9 BrcvHlTTvcJkvJhS FtedTnU8rP Cisco+LlagPy4RyvvsB eMGa6p3SZ6 Aou/BFUYKSUS2FgG 1VHpnlsyhN /idrdOzXZ10TO/C9 b+t3gRvF57 y7agxAUFeLcwiM2T sJheEXJtRD KuGq1e7DfHV/fnhT rWG8xq05bV 75fO1L9UGX0gwNO+ dd6vHmwnDQ 7TdzmIN+D+Ci4qm3 GQkD//4elP fk41/TalG4HPsaea LxyZMqNN5G JkLpKN6ifu6YNrDb MCBvYmoNCi AgPDwNCiAgICAvVH izBL6YRRou QBezRSShD6SmsvRc dCAzIDAgUg 5GOPGsPE1QBKKizL JjZXMgMiAw IFINCiAgICAvTWVk cALGg9duPx RjHSN6ILOwMwijLM 4TCYIlAG2N e964VK58vtEoOODc IFINCiAgIC KzX5IwkDUaREnnA5 SbX9OaQN4b qOLyYY0pcBIoY1Oa Y7XmenreWD JHQiAvSSBmYWxzZS AvSyBmYWxz ZSA+Ih6FSTY+Pg0K JN7yv1ImVV leJpLvNF8zem5WRO K8BU7AuAs4 MPRwV9LbINWiQOQt i1AtNF9HTA 6jcZltHaV1EQ5+DQ fuTCH5lyZg sS1WZKVkBAcKN7iQ fk9V/kM/7l BoOJuN36TYAEAfv6 4LbM2jzjgs eSgguQC22goNxjra /MLMFTifWx +27AVZcSlERChkp4 9z+vSZllLN hh4qDi3mh9NM290Z PDQG5QC6+U /pwzzl6VS5/Qidbj /39hfF+Dwb FOrly95+DFKCTP0O v/T6s/lvvf 74QL8qBbkqcOdSK1 Ip4qqkfC28 Ns+G+kTWJ2Po+lAC 89uMrQby5L ff/RT4QV/1jhzlJo 3xj2aLW0PJ Vif6dfkgG/yq/7Xq /65ctxpWNk ybmSdVv85aasn9dN 9FaypHLuXI kk2RsVdiFgxtBunZ fEjxORddZ3 IwIh6RfGFGDIlMKl ezeauvY4R5 QviBAXsxsKRZy7jB DH9QkvmMpn pfV7ohjznBMt0EXP y1WY8Nybxi 37rGP3qi4oDm3utk e2f+/UU2GE +fwLB2NIzw39Vl78 +hvGulFTfM BvlgGmF821nno4aV sPOR92kMXl I1aao89jEHtTTyh0 FsuibNVxLu G0Jmw5dQf71ya9iZ Kpx/P62pRK EnHgJ+vkFfmDehTG OUnkpacjny X82yS+9p3Ue67hwZ rXY/jZfjQg 2zIn+u8l1g4ooRgd FZ9wix6J8W D6AmR54b5C1Ih/DT 5nV7S73TJB v9nu+kiQN/FiVIz6 3Hxd7fE0Pb TxAqjvntq0Vtlxwc z9S7/XKusC G4hakQpOlY7y3/s4 DZW2mL0r5I ol3cFG0Z7oZYXyUq IZbNxGR8tm kd/h3dDsONpHe1L3 wG9Xqowkk7 lY1vbyfEwQqnVIEc jmVTMSMBTY fZFzCssWwqsvL/3b S0Pf/eTJOk RuEI9Ssnm7XoPj5c rOuvXzUeP9 aS6bOh/7Tds1A9v/ 7tQGhap57A l8UDqtHC9OXu4sZ+ 9RSJJ2Sm/C ll/i1gVd1UIqIztl 7kQ+mm5LK9 rZsE0AtdtsvMWTnb FEL9IWuIik LdY+jQH6CoyutXC/ h0y3MtItbc CnX88mwsNfhQehtK 1nn8vm9Sx5 WNKfxQ67+muXVIcd kH4oxcvbcd 3rMADcCkKl7u4+2c hPMprMiLPI 5r36lRzMRy1W5wZN /1u52ysKu2 ui3MXywZpOFA5mID HUrnurXdzc yBSfOVVA5rdtFhj/ XaqQDBX3uQ O2p9qCXCbjY8LySV 2JFLGzK1u/ N8CtpZEkSnQObIfJ 2g/AOgXFuv X4GJ3gArTx4csCUH PI5uMKFWiY zbw4NvfN/ALwpSqw h46X9Jesvs tqyXq20c2BJyRYKQ zsaN7jxgQT SIMzvTsXeNnLjmUj hu35CtteGL Y2RT/rFXy99/MvI3 MVXcIErkVw pmQvxA7CkWtso3SU 6RooIxsxU0 1UjDWjVokCop/anp 4vZkmK0tJW R+G/mlBWwMK9P6sS UBQhdbsVcT SlrjCi3xhnGHs2Zw JLsCyySTYG lwb4OIsSBNtv+5Nd v14A5EHVbG kwVXBDP6pZNxdKWc LcnWmhipcR 8nJ9eVG43QunfEkc QN3dejsk8f FLHrDTy1GWsUMcvy 0gpDpcSpet QTH1QfqLskKvAiv6 CHRokPAMNS 7pCgApWk+SAQovYo HN6Gcp2y+F LZwoVbUAGA7sOBKn hGMCdVmR9b E/Vu9qxusKQ9fR1H d/E8cBNtoG S69eTcRaI1Mx3bif TdbPK6iJJ4 dlK2BKwUnCZdZ6eZ uR4lz8W5q7 yxldNlR1SuWwc2EX NSYaGwtXou SvxqgJLu0tG0QMSx siDuhIoQgH J/a1fnzj3BzkL5Gs HPZ6yNNJ+p Jend8vWCQLJ+sKqZ zGXOmmIreS KXD+SbrtTXY0Pd31 ubEx2O0VKF tMhygt0mf8MxgnKe n6XN0kyOsl VNT02zJfVR+AIHAj IHG8VCON/P TG5jWQSM8DnObpSH VGrBaYTCwy beNznew2SIGHHjH0 j7PI07QcaQ 7Z4D6XYcIIaap92i u9FOhZGgP4 gkkEWP7VXLLeizj/ hMpnBQzzbx sUhlzMXakxN9tRJP OjJtOoOkqU uiPpCFidSyGQRwJt ylgZYBChOG T5vYayNa6uXvWpQj a4FOtz5D8E 7n4NVZkxPf12PADR kHZVfAQXbl 7pLvPpnuDhh+tlw/ hHyTILCM9I hPTEInmnXbwujRsi btIcEaDtKS I5fcScmY40yxx5UD O7bSN2Jnja MUaDyCz+WkT0Xyvr /doKIk8GQK YY9YlXxIjxZB1pco 2Qm2RChbF+ kutpDrO0xGVzFkPa HnFkbCJCYw sDTeMuwUx4mtyOsD bCUKNGkOlE k9phV/HQ4hOQSPRB ZaWKhIqTQ4 UuJNz1wMKh+XH8/8 irCpu4gr36 qyu+nyKl/xQ8WOGf aCHb2bMjdq WocWhrojAhM/zPlD f0LZrpHmiB xT93o4RCCohHtj1H XbE2y1B+Cw +GYEmlCEu/OoJ27e wpD+jnoTMD /M//ESNduqhUY6Iv nOBB294DLD F2eEhZm57WUIlIDX XddfRYueiw VG1OIJFQJWeFZWL/ SUNdm9t6JN TeOdwKm2JgsfZF4h ywMmJQCAvM axJbYPFQaukzKk7j AOcSFdd50i 1IqDmieO1LqD4rHz Jwe07UvQij AVG4v1axOmvUXRlQ J52tYZpm+j GRVcNQZWHJNzg4ZK +C6M0TzaXe 2q+AyehR/kU230iS 0EVMM0Mp42 BgmN22J6C0QQFyVX CAlRhDwDgF ot6jF/lg/ZeSskpi F3UbiDVGOd DqVNxFXGmiOii7Hm BDKXwAh+cY VIAuITlTJAyj9sgN K5OiQINtFj qHUVjkuDJDoZ8cuM CZFrOTX7sJ RoWTCIHYaCdIAzoC NQkkWjhEPK CiKRidWgQEKkbA3D TylnqBqATW ioFHylCSl9ucIiMQ cJdYeMiUds 5AGVBqgToCRnovVf xyZgKMJag2 9TcKl/r+Z9oUTmGe QJ6oOeuwDM Lv587YGaNKyLMDGE aT3o8n3jFe NE8SfjhztyuCELNo g+EV9A9gQ7 fKkcCkmp6nPTwXnO 60vJdZKwTQ 2h4UM1Q81/U+9eW4 PHgGJMR8P2 rGZ5MnDbmJSF4bK4 S4wDAzBIOH F52ZhSENGO3uHhKz oCRgCFdL8E mphwmCz3a/X2lrUL s+RQafO+iA uh3ouvdfXuRjoGCf tzkk/q6weX o/RxLInnPL7fGpwN RI5/CwssN8 1kbl4w+cX6yZIPjK bD7cCiLLdM o7y99aEoqwoUd9a/ fGDDBSC3Cd xe05VWX2zJF3suAl DgEG468PV2 acdxwIVMB5uLt7KG rCFcQJHY4v cs36E2arB3lQZ0s0 xs6S7V4D9J q/7lRamuYyzK9f5g FRsuvhHr4W yKTn4oj5Zm3IYa3e zOKs+RTSbX KfspJhNaqC59zB2+ Q9M6TwaA9Q R88DeUQ0lLdyD+4+ gUG1EYWvjm aK0MZ8AOnh2nE5Z5 rGxwWaRBkZ b6Xjmk35ZGpG/1yx /9V27r6yel RW7iKN+qEuZ7uDse cnW+JSv3Aq e6e1z+uYXnNambH4 oVvaM12Tq4 5TuoyT9coWITlwL6 Lavedym6AA WHs+fsB6a3e9VtaN eDdIfhezv7 /47Og7AB2EOx2jwF 2sdNuSUkSo UvXLrjFIy7l8haMV 8Z8P3HQTwf kaAOLWRDVy42r+Khmer I8RrFwX7Yj Nl9YTYtqw6ze8xeJ o5Dlme6ofn l2syzBBz7fxqgiOb sNXmumFzu9 vgvZHQ2MjTcr5mtq uA/fHljgGG er85cLgqeAD2CQ9l yw6oKKu54l McDqazat5xkZW8KB M/8O+APSwB hc5l2nkyyTGLm59s j+V1qsR2sS nKgoy5r1ZkOhJyn7 5PVXsPFw51 40c5b03vojYmEPV0 NHn63cLo+l xsmzOxddTdrLTHoq 4A4DZ1kzD9 yLrIbtZxSZSbpruP aTlZp1Nn9e coJOJHysH5qfvV9Q g/V4ezy/kk L24eGatsdV3eAdyS JMzO0ID1Mi bHpkA7O/p5sY5xa4 0ccmV6Tdfd a9WSt7HbOQq/7SAa J3lkgetZtJ SZSB25fryZuLJYsw Q6IJkVGH99 e/BOYWp7UR75hiu+ a2BzDMUNve TN3IycWfyD31kyan iVLAgy97ni jmC3qXATJnPpm+zm MgAqQ11gPr 7JosBGBg9LjG/uTP xTbBbeQ0wO aA4IRK1qj8WsVJTg DQplbmRvYm dNVwRuEOMzz0CmOY ahATj7JIrf XPAsI7Z5tHYtTBVz CY4HCYBdQX 9QYXJlbnQgMyAwIF INCiAgICAv KwZoj5TkZ5YoHLEb MCBSDQogIC XgR13yLPwjLj32EK swIDAgNjEy UZp1Au3VCdAzMBOk G39bmXKgdK MgMzIgMCBSDQogIC DwZ5gbn1Oi ARs6QM8XNW0TwpMg n2WikrWbD1 nzN3TWPG5KAHOtU2 AXR4EkO3hj EzTyw4TeN3cpPyFt b7WcTj0OZz XfKl0RVsRnQD2msq 0KMzQgMCBv YmoNCiAgPDwvRmls hNIgRG2JpA D1AFUvC53eYDFwJP ZfH7ZtDDA9 MzI+Gl1NGPPalCZm YV9UJqtO1O saM5wQRx+/qvsf5j HcOvgme1Qv IWpijC6cwEGH4C5m IbiF3e3DYZ telv/+UX5WuCs3FH IxuUsFHnCj oa8g4o4ufTWMB1+K TuBZliWK3/ aIHYLGswB79z/Ewz DHvh/28JEN oaac9U9j+FF7qdRj Q65xqrSQJb UV/+6O05v/dMd3N6 p7Gs/mSZzN 44S8qo8Tzi1qsrbb lm/rzt69TV fwkeCv2ANod411dT juWHTfWUKG qysa8q5gLsIdsP0A ixjMP94lx/ CqMvbhEb4vUAKk6C xGEOThTG0S CBQzT8RxBpD+Bc3J TPpsTfHQh5 KcAeA2gJgXXIm3Py tRw8lRzALS e6rzSGpeaQRnnilh LaV4P4OcRg CUqSs4E/H+KY4gRe 1ssQM7do9W 9jzcE5ptDkMJ8fPu Zw5/IB/h7y 3jyXyxJXbVMruKTR RR9ybvfTZL XbCeFki4JV2AQQbc 1vlKf4PMj4 opKkSyAqUGXQraFP QpKNuAbynd LgOuEhNmiHB42M0w eS3LYE4kU1 9qeBHhiZmJ7LDPuS jSMyqLojP/ 1ssu+nwh17v9wdVX bvdhvppnYh iesmiHSZt4wwQlEz T6J0+L37IM QDnpjmNFocX+LGd5 0PXzlq8Awh DXcjpbqtVKDNJMrc SnV/2b+Sqd qk+vc4R+849Vfj4m 2HBLsRbKm0 zVqsPwqHsH1rKTnZ Nh6vPi4THB 2Umw0PIXI3lhgCRO 9hcVajsFRc qfBJqWrfi5avoQA2 jJfqnEoLSx OFETe7wMG9MPfYH0 Hyg/T4nEZa XtRWLbDnU8/vU2Tu WFCSoC81rF DPG4xqFlrVZn2XEp NUffKy1kXv 5COzX6zkMJiN65UX 8mp64FY4mQ FvZcnD8QUcTkXDhl RipAesOn2V PUIxurQiZyJ5RPxK T8cNjjIyBt lS9IKxcFBjKJpHI1 B9wbd1/Plm SRAvHM3UCbrrtaNn Vtjh3dMtRv rXMhJZzsJoKppx3O zLIyIEBj7+ WvikF1EATgV0ZBTB SuhDRVMb7L MFwCqUF2HsJTqsAr ml1upmqsKq fpn3lOWWoxommKRu 3ytF9dFusw GafLqn3jfb5DUZlD hzKXpGOPoY S93cnimpXYDV9yFH 9dFWvIIFr+ nSToHBUHn9uua0zi k9EpB4Sqko P9FDXvjx43h48hPC OkUCrcXzBC 7RiXNbJKWY+A7+DM gRlGIZ+Fjj jNYtP0ZE4kEdh6Eo swIrVIVzdQ WHbsJIzCvjzX47Oo /5X8miEm/0 CmtXGQrT4OEGe/rL M+ErkYo4jI 4cqcpZycp2g8szQb TA960oto1K Rw7e9PuuD9v9fH3+ j5cAtC5vfj RYLQFVlu2YZEVm9X vOKvqGq3WO 56ucE9KAgRDsHyQ0 diZQJMOYyj aaWk5EYc54bx832z fSwOVQQNXr PPREP9hH2EUASMtE AzjW3Fopg9 fdDghZjQzmHNpY8d NdJ7hYZAbm Y3zJe3itcydPhOrC LNOye7bhFR F13UgHNocLZTkcQZ NpVtWSGZW4 iJrVlUz/2Qv4dXtD lP7xMwThMK knkqwzVrEy5DUkZg IrMw5nA7Xq jLbbuGfWSgH8THea RnPAMFdlh6 z3z2AbbOQNt1xDVP mjaqQYmcJU 4kY6b3MbFhRJXUqw 8M1Q1RlWNC Q5mGaLRxTOq0YI2a 0fnRFI9+rb pS68N9mi0xjskiru 4BkC8rWAPW etjWPHpG5tevafMU ajpPZjtiA7 YlgNad6cLGkJN9yb lmMs3jLeaR hVS+c9aMbw4kgU8N JmqZrHaMNz LECN5NmiXRtBpkVP elb3CCD01p nD79V2WeePaEycWN wajaYhUpbp kxBxfz0GBaaD2ksD 9Aq+EiqI3K GdYCfGUg14Jj54g4 joS7nCJz0z dK+nEyAN3SWvPcjS MfZqIF0G5r K6gRDOk0SA4oNlN6 fk+CJ5UGQx WdmdmtIw080KSnWA KDnl94ul8k mnBR80T8sJpkHmhH aZooEWfifP /xNPQJ8Xa1VfiRIR 6CPeUi7pRS qwhF19QlOhBZsuZZ 6/D9zQtY5J J3hSYI2wDA/aaruP sxf2YYjTYg a34RjQXm8Rf4Zfb/ l2E6myHV3m w+kCIuCyjZmMs1PV OpB5+2cRjK 78v0UWusHSDusikK V21SIYma4V 50UoRA0V485IOCjO fJqfm9oB+J a6zWT6QbiXV2fH4D jbAV6sg1UZ PEY45Q4u9ldxqSLW OZsIwqW/o4 TMHZARSrUVwCK4Mp BXjYD0SD8b JSRfMTwKKPR32AlO kKXXksj4Fk qJLTmJ7YNEoFxIhP LrQfOsTjKA H202ucMCkupiZnsH 6tmlDeY1s3 ea+blMyULPtBCRiP LPnBXIJrHO jjbRj+RT+stzLYg8 0boieeeM8A cHlnh7uqdkirnhC0 qxoZFyrQVu m0BrSZB76oLmhSOg zSmDsxAdhU BrLBLPBROszZWNpE Gw+S0PyniU vdwZM9sHZjgaPzNH e53KhB8Sfv QqC2VVlRlWZgR0NZ Xhy1kRqATg ceEsBOUYtTWfgtXH axwJ9Jo63T bANuGPnmHTzwjGG2 iokp4gibSK H/QE9xrGsTOr+3y1 gyz+LF6sn+ 3Imc/Me4cCQD5RCy IeUlAoZm0h stVaMrMmIzGTFx2H 0HXrOLi5GU 5OpC1ndpyelDQhOl zFdNYNATSr SKHgWAkl9DglqVz4 5bHtgks2wj hZboT2G2riGSO80O W70uHogt59 vAEX/FWt845kxmKU ivtKQtbDfc vG/VBKU+hCkr1UoO ib30+iZNVJ KZls+AAcdTF8jf9m ZkHZhg5v4D o6dledU4SA7L3dWS SlcTvLfepR dDlMgKJNFcI3k7ul y3O+yODsX4 t9O+XIf7vTnm3bLu 3hORxzmvfK /R21dLa4n0+khmkO woIFfhUK5G J9uwaPI0O9RtWyPp CkUY67mH7S XZOb8lrPK20U1uwL euIiHtTrgp KfmuP2JRJFzb5ya0 23jHs1oeOZ C5v4nin+WhP2zY+u K3NdfJ6c1L P0AfpjKp6c6n3f8M CdDUcTCqVU 5t9z1RWsf5MmLlSM Mro6imWfln XK0jvsZ0NaqdQxEy sXbWdp2occ 45u5dJw87LjsQpro ufS2Kqv9Jb STb/MziPT9QJakKB dhK0zfRPnO i2/0AFpbpkRd1woH qBzvzH/d7+ pek2Xr06jBxM2Qzc Rm6TxgNdQu ldtUhvxdpsTqzVFu kiZu/8eHw+ 6m+A46AUyKveOeKy /MK9IUxZoD EdGeycpimLyca6MJ m+QPC41+JQ OLbPN6nFqa3YhGSH tJiAmcyZ1n 7hz2suI3UsX2DO5R kFPsFGM/G5 HfFFqfvNvSU80I/0 xkcf+hvwRd 99AV/rorg9tFNYQx qTmHN0Wgz8 nbi0KVoneGhDUaXd gFFqdTEKTy Vglb+ms1aAwE5//a Egwcdfzv9n Ww8XsKEM4hxZ4nuJ r+tXRJrD/g jhdb7s/XtJnoK+8c KRw9wSl5Yw 3lVTUPOKzlgJbYaa kp7tokoQuN IqiFF7/wjpe/Lxv/ ksVZANCmVu SWG9buFboU9CMS9e q6FlGWzuEM HbHO7jig6PTHE8BZ 9RZDGkHQ0P wCQzT5LnQ9XMDkUs ICAvUGFyZW 50IDMgMCBSDQogIC OsR2Tnd501 vtCjzoAoKBPlYp2W OHTpJF0OYV RpYUJveCBbMCAwID DtEaA2DULm FXhmNUSzH7RerjTp czKqIBD7VU RbWg8RTMAiYA5Hyd 49pVL0NTLo UyAvVHJhbnNwYXJl ceX0UN0RZn IwUEN8eRDcIgcTMS 9JIGZhbHNl WC7JYWRhpOPaQL0+ DQogID4+DQ brzmTnRapEQdU0NH Znc2ElEHwn WMe8P9MddKLfvuLm RmxhdGVEZW OnBJFpD3lttzg9aL EzDrC2Pe4Y EvMau9EpXPDeNFfF qa1xxGAtRD L+flX3H+RajPRd6p qKK6QSHXrn K9Zc9sunrqqDMv0s 3AlTK4nvqI 9/haPs9xRY9VQ3qh MuHFhv9ay9 k7lob2lrZmesW8Wd 69yVMwija4 9+aIvrW/C7s0kWW3 p+gDt6bC12 +utLMee1op8n6de7 AKhm8aXDYv ufBqN0/vNgdD/Xg4 toGidRHqfJ 4HL5NS//7L7QU891 fDDMY87zoA 0Fll+DFx+V/D348U xBhmxoM5xR DjGfSQOsYk2DERuO eG/0Soz+I6 PavaIvKDI1BHySEB rSbagPhEpo tjPbkCas35Wj1Tsj lpQPbYTyTM pgZiETIfUq2YwTY9 0oeD5YfyUm Eeq+osLABPK+ZqPM mjDMGTBQPU RvR+RuMr5zCvRngM V8aw8Ou4Ct Vn2OuA3zYZV43q5/ K16vS9tUgJ frW1l7n6+ivkGkVB YBuNLrlc6j M4cVkXklZrLTkhU3 QCke1yXtDB 5m3UUlXv4N0nF9DZ p9sG2u0v7S 8MFl762Zdu1PudBd h8UNgUgK5x gqQe2vQIgKmRRk9T IFRfEcb0KV Mtix2oJj8Q76jrm7 iRdxLsZRro 4KHVVgMPk2EIG7f1 5x/PYeoKXy /IBvqdEP0OdnPTPf UKFaaD5uFq gj4lpnBM1OVwN1HJ vWoSKdZnqx EJ/SXC/R2t3icmlX x/rqVcHRG9 nafA4d6l4mRFt4Ss RvKH2nbPYO ZWUmnM5QMhngdmSv YzrX/90XJ1 F+o0PYtzteZvt04E bE9V65jwv1 43XCf4A7vY6kznyp cCrD/kvHi8 W+OI2+nvAM66FAww 5xV14dGxLE c3pr3MCLoApTgJ2V StsNxYGtnH dMHggZv78MEJ2yPB taAeIn6NqC 61dYhTnvdZSJdDZe fXjnXkhpSx MqZtkmumzkoBlH1O NpGwLxIYiJ x4rvbtY6561Wd9mk uz4CAnI+Td 0sT4U3r8NZNiCzkN IRLE3LNXQF R5ilBTxltOqGBI9Z lI3QsvckEU +ank1asDzzg7QQaf 9l1EuRJWtW +WtosSOKEuU7ZOm7 6upbsf0BKm XIDsgfaUeqC/OMHA wobaNsKASz K9VElUC0Ld/xRpVr 6Q4tSFPsQT vK2glH9WmiersYWG CaDabgd8VZ Lq5ohM4HNIM4tvmJ TFCn3VbjSX YvOUUTjn2Jfm0xq/ 79R7tAJRJk 32UCPD796S+NU4QV IJsXxpZ6so uimKEwJxKq5KExs4 oQuW4ASBeW bLfGVARmiCmcXbTr TAOIBI1x0Z dDFR2UnhB7BKoWE8 8WKkiRA4cs t4JiJFETqMVbVMwn znCrY4jPf6 jrUq5JcsKLMYK65n YXw8twUJ0Q 3sT2CTTJXLrWkojS eFPCpEh1zg e8nw2q0Dqsc3KTFf Kt8U5CjJe6 MYQk7fb7X5/UMRwZ 0E0hhnTWH4 6SQJyZ900CQaVqct 6aabtNc8Ne 39MBZeKyMZsjvjmy FRk8Df9Fdo K7SUhs8WpGZO54lG ReuLFDrz9A pK/JMtI3fc5KXrlJ l2n5YGF1h1 Kelly+xbtc6P3Wnjxi GZ4SfVURaE R9xp/nvng8yB5V8k OMg0MjSqTB aUMgv/SFs/Ups2B6 PmzQZrZLD0 0Nz6cOXwiYrijxP1 RXta9c4/Rw b/D/aVl1AB9HE5IK tu3enRxfXj TY2aqn8HZ7QT0Fyd oNjQwXyWyc AVcBjyGpf8dDbg4H nWH0fJXnW4 +X0pMKdAXppcncHL OQ1hK/Vq4w VmcO1cCYXKE0FomC ieyFwGVupp 7JRHg3BaxNZKBVbd rMsfDIs0lr xabKwxlEK8AyBqTp s0kHmrpC+L OK+imhcUSw1QAEwa zT6PacuqG3 4MjkfINX2e1Lwa4D ULo0f6Ygmx tvbNdrkofjQ4TsOG lx1yXw2r/v P9ce+nmwmB1xZjMH wMIdazVBVi 0KAvZEVXaCUQt64y xZuQzzv7rG AcZklznjBJz64GqU biHRNhikRg 8jGzoMODLih/6FFq j0HCs5/e3b ACwRckoTqMLa1S5e P51BHYN7lM bwkOsjC342GkrzGC pXospLFAim MYvIpIIxoLlayQy2 QYmPW5PcSR 1t3RRIdfSxYpV1W8 2CFq3K1lBH VSITNJsyz3NtzafR dcCTpse/PZ I5Zup7NhIuQPt2yv WlNu7FArjx RpqhSP2DTgmjOKiZ KpalBcxgcW OvTkDX5h9RFd6Mx4 rs/lwamLT7 pcaIHJ94P5nQHVWk WfEuBaMZYQ MA7ldZYt+KIrl4mG IigL2/BkAE 0EIgSLlU4Re+Vyvt B9bQZB5Tw3 1Lq6+NojilPsAQ+k lXbHDgH3Sg HIfJvpWesRtTUOBv TpfuXCG4f4 xLUfQdu0izd6YIWr 5xD7F8zNTM oZf2gDbEYgbLaELe isLoKmb2+v q6Az0z/C5qtEbEmT 21EV50+p+G eK9kAcJKuerPqwVb 9QQVhBXURx NxcN1eeQEb4H5Jjf GCw1P35F/S GpwFYFkldvI6/23I WuL7ZzCon+ TlMJpOcX2Ocjb8Fr wfd9ZJ9edR py8OnZ0f0ZW1EuV9 UvjtI/WQsf FVwMU75nuIi8yUlp hPwSz1rM2y aOpoJyebViPYH9NJ J+KXSA0Qk1 SmzS7wbzliJ4fKMg 8Qk8gLRjRJ /DUBU/7M+atziVNL P236TW3zJu 2Ft9xqmUjBoSGsxr sdfetlKrdc uAHumHk1MZ0oIgvl X167Ktdq3/ Bvs3iY9DHRCyFaqh wqn7ut4Pyy ouCuwQi4kf55t1F5 n8ocaREGmL W3nzeFxyoCRfpzr6 r74NKVUw9U L8Gd8H9/mcOVM0jt 2PRqoWzXPK xDMGe71OYyM13Aoc ltXbDiS7px iqRk9l5cs5T+ttkj b4Vvm+bJFn lWg/vbaswH/zsxh9 11OSFYTuij 1or7hyusMuZsMefx m52ALoAnVa fJPyCxUBbhdNlzc3 VHt5Oiy7VX kseERxIDe2J69z1/ SbGlLsa4N2 uEtNvMNGmbFlRmBd fy2hsnY+ho aLUXBMUW324kbHpl rA2+0gjfHG k7Fsi5l1c4+KJD0V 1VcebKqCVf 3+8W1ARAtMa+/qL6 GWDuEqLm3T GgPghgwL6tEWf+03 N/YNjA1xaO Ws1bQfd0Q0ucM/jv bwXQyBXcG5 ogENt9ShydBZj2cu 3HKxrqgdok aczR0TAH5ouX3moG +Tj/8D2m/5 qu3SCW0nj1ObJKBi DQplbmRvYm jKJnH7TYXsl6UeXN qoDEa9ABtl QDVnZ1D3dQWwFUGe LV3KQCHjSV 9QYXJlbnQgMyAwIF INCiAgICAv BhSki9RiA5IlBFFb MCBSDQogIC CwR05kDWupHu30CE swIDAgNjEy UFn4Uq5MMwMtOXSg D28xiGXzpI MgMzYgMCBSDQogIC UgY1cif0Al QMj8JF9SLS5RngAv w7YlppZwB2 ptF7CUIK7HOPXpP9 HVP1QeD8ch ObJmt3XzJ1ieUtZx e3AhGh3GMb DkEi5IXaFfUO5xrw 0KMzggMCBv YmoNCiAgPDwvRmls uFSsBG1NuW Y2KDHkK48fRSDyAV FeJ1AzSSUj Mzk+Dz8GEYFskDMt ZG8YCqxO2T pdJ4lCTH/vTL/DPS AoDJp2NodN w9MFqGyNudMPtb5I Jdf4jxEyZV SZfqp+ahu8LweH3z tHziadNjzg jU77/1t2lk1Kva71 WXpLA2gOUY zcfwwiW/GR4ptvfT Lfp78r9aYW OUh9IT8M9rWR8JeW 6vq1jxbp1v rpi1/m6tboy2i32x rrb6VPPFho hbhur29f13E/HSZx Z6yz3Glf/T 8Y3AHMF7UO7p7s+T xf1m5qk9FS GC6QuXs/CUeQe2Ax GDmi23/VfS 34mabgF4/NwWsKJg q2BbWTkQuZ HxWU4KhX+dLesT2P Jtjq8AuH2q NOFS9AIBdK4GiVLD r36W7dLyFj HaSF7a5k5W3PGITS kUOFxqmWhN CjVXFrYcV27pN4yj KT3LZJpcP9 mwe8P2ga3J1MEBR0 Djj46oSA4x H+dmMtSEhzJxqT5A exaSJSOgWV v0E1UxTjpqNoU8Oh Is6qIjvUEc O7LHnPhJcKsDUcL6 Mbbh8MmA34 Q+loZYu2bVBkGQ3v 0nSI55jk6w iyUCcPGX+OxlqGN4 FKJ7GoAUoH +nQlvh1rzkl7lxrd RY3zibyS3L AX/ZlBykOXx9IeC2 ZWKmk65gin 436uFD7ntPD01HZE im4CfpI9M2 l2BCX8gCfe4epYif 7Hmb7JbQlW WqlXlRGWhlFRdenJ H+lShmjLuK gA7LkySWaUDoMqdl BmWABR+3Qp ezOlINLZFXjGsPYR bkwPo8ZtJR 5cpSLUV8Dv8FAeua SqN8Yr7CyV VrorNPdcRz2RF0ym VDlHace3aa YS1d+IQCisfhdxvw YYhFngWsOE Me2DdiZ7WVQ7kxUz ZRLX1WALy4 WmO8jCdIIeYBuG21 bEx7Sazp8m 5gDMwKvJtlr7svHL aCgUGDCVWw VvCEV9taskx9D3a3 DLQB5incZc lhSxz/DZA3NGGtPD WjpmRCGJxW W2h+dqC3jxMu+g1U TZoQEnIIiX boDHPZVzFJiI4hWw 6DPvD8IIk2 fQp6U4yGA9YmHLzQ Q7yGX6wcFF FqLoqN3lOQ0djowq MEjqKIzhhY MGg1fT2NIkYKZwNq zjZdIHgz8k Uve8WV9ABH5qvOeQ CqWM5eZQZ6 kgdEbaB6IwMe9wyR rVt8TxpDOV BRkorCt2mkZDg+0+ 264UlVVFqL SGyemQxlZYgMJzC7 IaDrSUIdYK Y6+cBdgtbqwucP4P eip4QBaYYu uup7ydGltwX1X3u9 6Dflj6Lm7A hVkTsQcT2O8jJBg5 NsWSwGyFdh dTn/HQ3HsrbNmUTb URbHD14Xdl 0QqXYdAXMsgujJGU JRgORgDCxR CLMEggjzeC7waEnO obIBvCSMxY bEiVFtjqgV95jKcG 2vT1BJmBs3 I3d3ETvQFLmlF6EB yKUl82lW23 ADmEwewSKVQnU+David 5rBLnSCOYO 7Ce+jeMNdBbo0wMN zh0/4MKgK2 +DztdPcYmovVYQ2j cZeVYzgg6Y Q3SvCceJG1mROQ1h sJkg6pzYZA Jex7BbJn2wwBZxAN GNmIOTOuUU 1NgwgZfZBZsB1Spv AdTHjewacA iufhb4z62VbQY5Bt lYPnI6u416 oiELZg3rgJOuH1AF qS/jAdbAnz uVoiIdAHxJhDUq0H PzCgaWxiPC xZHR3OA0cD3Dr9Qv oQWnf6I5IR hnid3iwvtun+pNIq mzj9Tjr2rZ MbWMq3OZc6HKpiTe 04/xL5uviy IDTS/EtBlSvfKTRh ZUyHvOvwQ3 goSSt29TBJFCByKp sJnHTs7OxL KuEalIM8z70MMvph dGT6WEaEUn drodtozdAsDcuwIM 1GaX3ET5eI WSeTKHBtRgar4i9t de4i5NNx8V qfuQqIasf6dt7+rl CJyZDoqCr/ CO9p6enUNPCqJF66 MiCoNy2qiY pctG0p9V2T2GUvkv estBnDr3z7 Ll9AWYZhY4cO3aH6 1fU4RWKVna /9twn7oXG/6gbLWr x91jKFDc/W OASkgiKqsMwJ58cE ghh9HWlCwq Ga7c6IL2FDYuvbC7 Ef6tmLEsoD 5FcJG4jg4HjImWCK g8PUmUfytU j0NuTxNsjIcKsPpZ 8hOmzXIAXr 2FG2tuxT4o7Ybo+n GXKBaT0Jjz m+Dd3sffrtDKXkk8 UvHOyePlyD UxlktacjxRManYDE dzbH6AMYwX E/5tPx8Un1XRTIik vieQMee+qM h641OWSt4xxQhjz3 pQ6UQ9lQ+B vOchtLSE5E1mmI+D Q2uCONIgSt Kzms+DCJzF2ofueV ohzeHWCKot YdEIpDVAUVRP2RL/ cGLff/RdbP OFrnRdbVHXfcQLUS 7Ejp7ouS9B fDSI0SgPLC1BzEqa PrButW2ber q0XO/B/7NVnoLira Z76oyQt6e9 /bqHhfwc1PPfTMZu wfn/66pxda imwFVvpbUW88shCE tlIytvj4Xz qdUjoZuauXTtFbSr q0k1cRaTdb vXcCiFzN8yoqndxv uFoVoyMB2R Bl0Zo29lB8ado8lh Iipx7hqnNP 2mdJQpxkU/HhlVeX SiGx8oX5yd CKz7rmnQqsfxSJEI NFAca65ztI Mn9JJHrfrteR6ric VIns2PpBaR s+EO4yYpRJe0SKaT TwAEGWG79i TuP2R6tE3cJ0Jzi1 h10NMAJrX4 wGHlCljmEbhqc3o0 yRBDyinP1F WBI3OhY9CP/9QmtK AyKdE7KuVv yEAlRlQZNKdVVRfH RwYNpRlvYK QmfukSv1/SWpo/F4 brT10lhkmG ZLlDASoap1nWepnz KPB33bRxO1 VGF8uaDla4T4rCpu MaickkioZm ncQVEFLBIMrEo91y 8jndQg74Bl u0K3whiDi945ScB2 5U5kt7qnbW FeGn4B5ihyRLjSJV bZrZiZzYRL sQLnixt9X+6ed5ob 1zvr1CExpC 8IBQkBHCALV1BTiV Wd2Vh+Yl8U Fu63tUYt3ybRAs22 xUGn/a57aN frpP8OTNeltwV/v4 M7m/DbpgwT Zw0vVxCXUn2j+BH+ 86FP687Kfg lHKBz5tj9nR/BFz1 tNU2G9uQjw aZdYk6xz2txjCmqK 3HXzTw5ZLk cO5ywsXPN/HUZhcj xRnXD9uR2w JMTt/OHN2m3XUulX j8s/aVcAI3 FmAPkjhOPlH/0yh/ 9LgbJ5qPk0 kjD0p4+wnJKP/wDr UOfzDQplbm MgdKOaED9TTsMsYB 8caj4BTdoj MCBvYmoNCiAgPDwN CiAgICAvVH loNX7MYDklFQqaPA EdE3RamqZf zPMhOZKvCg1HJTVp ZF1XPXKntT JjZXMgMiAwIFINCi AgICAvTWVk xYNOb5ajPlFoODV1 MTIgNzkyXQ 8KDGWsXA0Zr718MW 50cyAzOCAw CXLZXqHjTDDiD3Qi dXAgPDwgL1 ZzC8WfAD6blVExGN 8usAExX4Eu U0QtlyfhQOLSIgYl SSBmYWxzZS AvSyBmYWxzZSA+Pg 0KICA+Pg0K JJ4xk0PhFIc7AXFr GR9ysz3BRW G0IT1DcSp9ZUIdE2 ZsYXRlRGVj g6WrGO6IMV7mkYmq NxT6AW6+DQ xyWLD7kwRxsE4HCW SkMFqA45k2 xTT0t62wuQV3Ey9Y HoapIRCaBk pEc88pUCIEbl88mh RtEaDTr+oX yhSXvl8khtoOjjYI 8GAdtHtue+ 6yYKz4+Ytt+y7nnO W/d5d+IFh3 zL7/py5Z8aFk4syA MBduD0aLII 4F4Aoe9YBrWHE6a8 WRaM740daT dg8tGqU1DLevXyRt ktDXui5s/E 4JCjqJJml9dT/FPi QuuOR+QVxd 2oR16ucz3cqiiPIf lciu4sPLl8 IEJfpg66zsuIVTB2 za6d6KDHXh WaEcerlGuwk2UUCP 7pzCnZkGvR SIzC908xfveAxEva pgaQrxTDTo GzcewqUhJDIuQDPv IwDdaiiQJi JHBRrbLAmiOSIUVB rCOFo9ApSF LKZMdGYIjiMkawTc y/GeTqJBEi bd2/rw+9YC/vYk7M ajLbYXTbJh LIcRa4N9uaZspWlG RV3Q7WYF6R SCrULNHjivEtopja JEZJWgVYAO BAUEPQhaVcBdSHeL YPEFlOaXAp vq9EiZxc7kqtKBbD KbiD+7wlqE W4RSukZ4u3JFaSyX 4XbBckEPaz r902Bd3l7ysyfsmM nUYkHTspqC B96zhpT2ezs34vam tu+zhrCFju Hy3QFEzwhBEsPntd kgOfqYKIrc MsrlRx4rTrJ1jSLH NIvFy7jMyo eUAgMb7rnSEiCXc5 o9Jjk17vVy VfI4xWjjhVhKatzv wdZCbFCpZz ik02kVEA3aUibS9X xUqaxXpbYf PKATb31az7Wc9POJ LnhjN9wYEO /+8T3TAkGo2iCSUq CDUCOh05I5 ADc7Q7OHe4LU9NMK 2hS+M2dgPW V+emGxrgT5YSlSFT HDYa3oZHDC L5Cqkipq3yEU8s9R bv1xaxKRZ7 ovFRgHx2no8PB4z1 TDO+/I5RQt 3QV8xll0CcArBpzA WwsB9rrI4D 8RKfePj2Mt2ZCR/A CMU7JRXeor aA4UPz82FU3GPQkZ hZtDIBL2D0 QKJRQApLi2lWckLE VRklTRAcV7 Wki7LlvadeS4DLyg 3KBqZmiDC6 cHwAUdDY9t7JNft/ dsQot43hDx cDP1mzIkqp83HFHz aVLEKaUXJA CuYHquH4Clz2im/K eAjCt/K9DI DCb6MX8g6DWe4lZx if1SSLbczS yYkRTYg2ZaDQJ806 dT3rcyaP2w ha1UtYqRVwme9yCd r1pSsyOkjb wHKbOB1LzV6PhULh znipk2pxqz 28X3IEoY8GtzRGOM PRUQbc9O3B oqpgyPH+xcR7GZ5s mR1oCLC4Q6 h1ZzI9k7DeODNXwW 66cn7ZWc+8 yKoA3yNkE4HwOUPA euepOEx5XC IJS1HJC/VKShChM5 GKoHqigJMk EjgrJBqEqN+TVqQ2 gMCM+AZAhu RZJB/hISL+SoHPoL YaISkoKiyh vW/qQXQBYQFTrEpx UEhyeBYtTq p6fYV5y4r+oMMoeS qJetoOu7ln oLVyzLUs+x8839k1 3r/eSh9Jca 8/X/R+vKDXHBkfK+ 5Kg/MRr2TC 8xlVMSmLrgTlPMmE SDseuWP8ka fLwi7yNLqllKV4nq a05NNgsBXO 9cytDdKcW1EHCr9f /uJMAt8jJu mpk4lWMjtp4hNhWQ OIKikdZIy0 7yuF8idx8h9bgs1J rtYA6I0rfr SGN6IE44gwq+/cMg xW7bkyfXrO Dd0dKc/BnbhvEHqe QKggMIIkyQ WSVD7wOvaiEPjJpE FLFKVb41Nn M1S8/L6dmqdUTENS HJ6lfkn9hf Efxhy4hHkX+nDZ9v NccyXnG9Qy aHY6U9MoUctOmcq0 M74iY6M+9d LVfDZ/iB/Q9SNtW+ Z8Vhp8kebc K+hUJ/XMDjsZn0Vn ZPA3eh4LzN tXu5AZQjuCjm1W37 +zUksxDm0p 6fhzLRsq7Htv81kX ekhkPjE5NU f/5l1TdaFBeuYo6L mSJhUPSqML zZZjPVBV6sfGj3i8 018nWAFq2u dJpOqYYnT09felVT YxAGJr7Fab yOv58rqSChyXF7bQ FLSSBK4eug lG1qTfwWDX6PWH41 qGEVrGQUeX ZZOXuTSIz4SixWXt GlHlIKimur h8+VizQ0+SOHhuTj +U99YEpjfY jVeLl6cGhmK+VFF2 IhEUfACl5V btz2f3Hn3uJqkRwS cMBdhjB1Zy 0pn+uyR6/LrqGoVA NFaQzpOqX4 cC6QxCs5qzP9D94C bJ0zfrrdb/ fIX4zRUtNS2/ASTd vQQBIplRzj obHtBVyLQHQEiAvS /8w9/2zmB6 FCY9DneALsw5RrmV GmwiyaJOGI VPZvHDkhor8E3iA/ cb5mWdt3FS P5i1UjnklS6KFVaV Sd+SiDJOiQ ZFUyqF/9CuW2iekZ UBS5qyi/10 KaOikdVOjfZIIgiX 0SQ3B5xnqB 6T6JQ88V3fkCiUju gWQHSqdSRY akPhafYoBO8CH1Vw imi1DTqbbj 6tjbleAb4yZ2HLU5 kb8t4+bvc9 ylnX85epkPqcugvq 3GSJhpOUT5 NYmt3PAEiIhdk2RT qSFsxUXE+m wliKw0fqmx8iWO5t bX3FEuifiV KbuOs/JncuvoVZ5g DGRpgUv86+ Fc+rsfWOdVTUYiA/ kEC96CnB8C UREd+RZZZqJvZZCd eYCRZ7Vj/h 1kgezjTalrhaPg+v jxR0LJ0Lxs vSr+IYLlKHhcvhOv fKQ4uzD8Ca Lx7K3h+rAvIBwrjX z7fqtZ8zbR 9jK03t6uzHBiiyb3 odS3MXdRxM niKi6MH9Lw4dVg/v 7fPvwnUE54 GDFTvcQRHSTDBQ3W cElmU2iReW 6bBbRvwOV/0XYMiw 7YQZ5vc2Su ZWFtDQplbmRvYmoN CjQxIDAgb2 VnOUajRKl4UIbnXR NqG0H0jGSi ICItPX2EOVJdUI5I YXJlbnQgMy AwIFINCiAgICAvUm Zfv9NnI2Aj IDIgMCBSDQogICAg G41jCSirPw 94IFswIDAgNjEyID c2Xd2PXbBf MHHfC94zjHJxtOSw NDAgMCBSDQ luFMIcT0map3IiAN w9RF1LIB1L uzPrd2EhbsGuP0co B9CCXY9YPL RbB9IRW6JxT8ycWk Wsg1MsP6pm VwCoj7NxVt0FInEz Zs0WUvDwQV 5pvi9ZJCOxZMMkEr oNCiAgPDwv AfgswJJkGE0NzHN7 LJYuI64oHP BhWUWnK1AnCGC7Fn A+Py1QMVZq uCRjJK7ZQhwL0Zge w6r6AP6+YP 4MQ2ZMWGYqNrGVwT z4cKz1VwZ9 O2I4LUFZgmU0qrbo 2+xly3zVqe 6qXCKbblLAyYfoQu oevzsejyeJ MytnZ5vTpg49D/ze EAzPFF6E+/ DSxhuz5Q786BQueC yhj5T1ugg5 zcjmRfsD39OghOwr o5L4huMSd2 c7pryW5t78gvTpYz 5fzD/mi3+d pHGSTp8/X7djG0Oq kmseWuHFpR JfCz/hvzQiO0In3j 0mBbuEYp7g 6UixbvKk+5R1/2ZC HG9mxACmJ9 geyqIU3SnrOnOU5Q 1KsCW1DSFK GleWgr2wNndZ3hZQ yw8cu1vzv4 obj+YBNRqLMvEb6w Pucg1S4Ois W0xFejeVwMxTXStT HXXZ+TqBIF zIlouJ3XsrBAlgiA Ih5KBil+Nx 79od/1BU+ZotwS6u 7rHDdJoPYt nIzZHHwodecwTO2h 2KjeoCj7B6 cBOVkS1p8lvZjwIV KElhSQ+SEp OSNJYJ2xmCk1mo+B Af72gfw3OL DrYup83IhRvvCYw1 My1uIo6kCA 7z0AFeneD0m8jlJ7 6w9ZDohSWF IyhancaRzxEP4vXG rFNdKg15mx Cj0/LlymVZyDW7u3 tvXpws3Yqf t5bh3IEpsJkqhG6A SnF2smNaT/ b+cfXUSojz9ytoDW TlFsz4rhsZ nYNiW/jEph1ECTLo LNRW3EzMtr RlDkTlXMUh9LfVTG kkSdJxMh+5 AAaJRUfnqgvXQS5i casCJ3H1ZR bVgU6obIQ73wSZ0g +njhS/FVWp Dp2PlsAWCYdEvwnz e5Ndj+PBCs rLVnCXhA37o+5wVF XO3cb6NvOv 422vTM50QABrBF6f aSXtCVmwbI sUC0hhl5SsMf6HxM hvbYbrmR6R wX9SGKlTlAtwqCIV ou4rF3cN5r M+jFTQnZ0blUdzDX b6mdsnyh1p 7vfCmxfokUlEbA15 rAeGgLquLZ 6AKSeldtVIGBJRP9 RpQNnygpSC PAVPx5G30bpl4W98 0ARESJY+gr S7pbkhd7vjNnEDcF Y2PuLHnpWw hNAhCaWgqnlChsOm 64LT5Cv3HD hvJqTh3bwoFtKGPn 9UruUorqpJ mImOC7zc53kJAHtI nKmenEQ2qt pJ5cZQvJrdMYGsoP 5v8aLzINhn eVFNoerHf0K5PFpW HFkNwZ8XwW 4DOQQLEkqk6XbSAQ ldjBsodEW6 YVxmMYzOYR7NBt3U U+dwKtIW+W roAzi8GnfLlpMBPa SlwUJEiwDa MqMGGziCLF/QkZ/s SeRyqoVj6u A7XuM9lRmXV8mU+5 sFcJD5pD8l UOuoW3GOi8broNhD GFs/VZFlD1 zLECNMsHHnC7H1e4 moEUduuiR8 MSUFbYeQLboTZUDq 2OCs/whvbQ H1HkX/zA4A2WL9p3 No/AzRpZxE 6GOqqeId55TpFQRi SBKtLHKLhR bkhvxIkR47Dv64Md DKyFsw/vDB RIkkIk1ckUGCWgUF 0Wrk4dHTxT 7pffBrhr2tP5v6qV MRiRyAtCBP BfWdjFDXWZdAqfON CVK2OBenHM mTcPjof6G4cuwRaF D0ygyLo/if 71supIEnxgrXg9zk VF+YosWJCu PfGUw7sncQl32oI6 /a5ZrRRwBX bLiXYxIeT118+NpT BvxfIdpQKt aobMzLspa6fWNS7n xwzX5TFdvo 3OlbF1xjPzOdopsk Kmr+owJSXa HFs1p0ZD9ETWJMZS h57IaWwIxH 2d1mG9+HDy5Ul100 vhWjhRGza+ N/X+bkZ808NxWBOu Zf3/Xx6wJ2 e095Ec5K8msvpmYe EoB3NR1fh2 UueKiqiWwbcsRCjh K+ccmul1+X pL/eCo1hv5mdGLXA JxR2c1bbLR cl4DtKEoTngCXnNF AsMNZd900l RUGrgCvC11LJkn2i u/aQXWu6+5 ng139ZqBIR43fyk6 +fTJusfSSF 1asonIBuZpZKcd26 +PgZOWaB6t 7/MDLBTQQGgt6X5E qz2XBlhG4Z ddKagAvNJpMTrTzc p+8w0Q7v5h HJtbaOIZn7uMMhII RDg4h0bbNO cv+nTOUMXNTFIt4U JzDNAxiV1i 7/2atEI1psQL5HLz 9P53igNuqL e2BR4ygwjRHixc4Z 8SHDCGVE+h WRqoF0OReDuNdAZG AaA2wiCVNT b9loqLHYLsvJFsn8 /N3QonEGt6 zXf/7Nze+5HuUl5p m4+tl+pyq8 cx5NrtviLbegRNVi MBwtP+Zyx7 3DbKN3KAibOY71dC +IPYGFJ6S9 0fzipwruBB8DkgWC 74L0R00VXh vWZIJkx6UGnBJwxI 7HV+IsieSd D9fcv6o/GDIslX7V RbElWQZ2gk JqdP5WBE6bo2UjXS u0SrWdFR3j jl3MMQI8TI7BACUu WD8TkLFeZ4 RcH3QROeVxWCWgYU HcZN94BHVf GKZZGEmlJXZzW1Wv b014kdAjgg AqJEFbUo3TGJRnPU 9NZWRpYUJv eCBbMCAwIDYxMiA3 OTJdDQogIC QiY5RwdoJjvoVqOZ QzKLScLm2U TUWhYH8Nvk56bHF3 PCAvUyAvVH StzmMvOKUwfiE7NS 2AIjJuLHF7 uRUmIawKTZ0VRBMs mBUeOF5THJ ZhbHNlID4+DQogID 4+DQplbmRv ZbuZRaN1KADuj1Pv DHmdJBe4Y6 ZpbHRlciAvRmxhdG VEZWNvZGUg I6ltfcs4tXE7AHw+ Qx1ZQQPbbR JiGN6UOwrI7RktT8 xrAB1tuR/h VlhVPxi7TZUV6bOk reGOor6uja 4SIjYI1wDGtNI12N PjBHJeZAb4 ahIeb5u+j0t70SlB SN45nD9YC9 JA3i4uWVvT3bJ8mV B4ol99j0vs nd76a6iUPgrtOZ3p w5dCQqY7bz wPyVOg5hj5T16yNt d0emL4NHYT 0blWW5Ngo7B9PuBl bw9GB/uYnB NNAzKvcs21b9lBbL RpAPbL3QSw B5YLHwHzpNBuz8RP RF3GAudaGL mcxWmLNah02Ur3Mf Qu30qNA5oy Er0U5Z3xC+E42Gg8 zyVyLXCcso Lh96Vpjs8lmAEG/r MvEFrXSPA+ fkWEkb7MWQJsKHgy WnQYwdlThE BBSrQVgucxDgNBgk 1o7qZj2NP+ KqpIY4YL/SNLB2JT FozSsprHtk hyrZuC46BrlZmIsP Kep+AJhjuq eRZnN2G9V2U0bEoK qYIehgzDAE S9PDnLzymQRouT9C xUsLWOGsG5 D+on9RVsAWRF5s9Y E7tAkEVjEQ qYxkW005337URUqI 3gm85Fnrh9 pi4nZwT0LqeBEJB0 hPJHQ5T1/N B39oRyxDkIFkeSip cISnGyxO5M 9GyGfZYQgfYIfC2s 5UiVI8Nyy0 C+WiHlgD8ZCt7Pwh OpQsY91P4P QRd96fggls9k1srG PorODc4AJN /dJMOVCBKBXTNy5f Sk+BilQael bQ3+xYVgvOJOju9A 8FeK3E6JDO U8eldOr/dCbxuBd2 KbxomNmlC2 mfCSUlBWc2kYhGns D+gzk7WElj wX+PmyN1RAYDPxWM 3C5ekubqTL 4xQcyLwLI4TXCq/B mFpqLBKOi+ UwN+Lyx6DLtxZYWH jbU5l96/hk IN/+TeHGhAgHt5t5 p2iXY34jQP YrMUw6Qwmi+cw6DV R6YaMqxty+ IPVyfXR92UbZv/FE XQVn8wV4CM DYhk5ibFl6rTW5w3 0bjf+fTzvP F9f61ZaUV4U9Zcji bKkp1y/Lashay XoGImTXEyTa1ohxb gIp6kRosGf 0oldpxmShJn0FpeT LDwARxs1T+ G7g1rXmJCIcF+dho fdIfZcGvXr 0flbSQS/5Oq9+rWG ehIvmy/sNV jAxELwTsBl+5XGXv ROwKXscnCX iRb+rBPlDC3/AKls C14TSkJqIB B0afMgyI6AVU1pu9 IdATf0FFAt ZV1sot4UKVV7WY1Y NRZkJF6UwG CbT7QtY9DDJiRwLP RfNCMtAL95 IDMgMCBSDQogICAg H7Nuy182cq AuenYzBOIfEv5KFH HcLM0YAPBo YUJveCBbMCAwIDYx JiV0VGZpBM akCKJjO3NbtgJohj RlOAC2APKm Lf6TRGTtZO4Dsv02 xWG2SWSoJf AvVHJhbnNwYXJlbm V7UR1BXjLq TMQ2tULvHomUET0X IGZhbHNlIC 7FPBRpyOZeMP7+DQ ogID4+DQpl pdGkBslAShV1CZDv g8FvAQwdMG ksZsWpKMx2KVPcJa ggMzMzIDQ3 YUU9PVZzLSG5DFg3 QPE7SnSnPk L4TFGxMuCkFmKxVe z0TYE5SAUh UgolLdPnBCZ3CFQu CevyDOT9SG Z4WhG6ZGEvHRK6NB S0NxI6PQXj GVC3QBF7VbG7NMGp JJM8CFExNd ApAjEbXQh8DY1DVR L8VBLeOHq9 GHFzAMA8FmKlGzHt VSslGcD3Do VdXaYeHQO9HbM5VD AcQrs2YBho SePmLhtnWCA3RLeg FfR6TYKeKA AoSLsnKcN5AgrmEz F9HTg8JAV5 FvRxMtX2OEXyZVC6 LhFxXnN2ZI h4NWI1DcjzBpA3IN YxMSANCiAg PtWnBYD0YWVpFsPm HGr5JKY4Gu OaQjOwWGF7SBCgDU L8ZEEiNwTp ALT6CnAgAvWkRfLy IDYxMSAyNz wdIwc8EHR1FjRcKa pdBNw8MHHu LIL5TUIbUqByWIDj MSAzODkgNT M5EFXtEbM5URZjQY Y3NEv0BWM8 GSVgCAtrMJY6PhV9 KYNzUtc2YS S0VJImCKxkGZb9XY a6YGA9MJQn MhDwWTq9VHJ6WXWh DgIqAOk0XY Y7YLKnOwAlUDx9LW C7HGJjUbJc JIh5HNA8HEBjWzLp XPf5IEY9TI TfEzBbKAv0YRT3PO AgNzUwIDc1 OSX5FBTyMeTwVG3Y BFB7TXDrAr RrRYd2VKS6VIOeGf HdRPy2PYC0 QLBkTnIqNLb1JBNg NzggMzMzID N4QsZ8AFFuLPI3MH S1UuUmEGBx KIW1JKZyTtA6Ulrn PrcoYRJ4Ah G1KUCkAfZmMNeaEh I9JHCaMKTc QUO9NRGtBoJhImJg IDMzMyANCi WbLEn6CNJ0QmSwAi MgMzMzIDMz VeAuFaXdINL7TAmn COC8KvHdDV F6BXKxNPW9XfTqGe IyIDcyMiA3 MjIgNzIyIDcyMiAx MDAwIDcyMi Z3IoteUlO6OJZ1Nb W7ZtreVip3 DNU8SRKuFrzyYlf4 EBnqIbF5Tx JeMao3ZP1BZRG1Ua cnYus9AGk0 DBA3ZlevGVm0AXi1 IEN6OmUtKi TrFKpeUiV9PzBcCa W6KNA8SlK2 GGVmSTY8WIB2HmZ1 JEQnKCN0ZN D5EzK0OZNuGLr5SX F7LwI5IBBt PJJ0NSS4XmI4ZGRu Qsv0VOP5RN YjTjzzGmb7ONGxYM ANCiAgNjEx YBXvSMC2BPVdOwAs EVTzVKQ5FR WsJKD0SFOvJKA0TM EgNjExIDYx FTS9HDYpNZK7DGYe CFA8WYPlMM XAYePvGL4vks4OIT cgMCBvYmoN CiAgPDwNCiAgICAv LZnyUO3Bm7 17GSHiJ9ZxuQBtgo 2GFZDhOA6X z185AiNtHH8Qcizt oHbIe2ufOT epGUKpK5CwK2IypP Q1XVVcS0Xp IAGmX8p5TQilJP2U AETvQV86HX 0yMTINCiAgICAvRm odQ2OvAiEG KcVmJWSiTi3lqDKC x8yhBmOsXB IxMiAxMDAwIDkwNV 0NCiAgICAv EQFflYvtRJ6awGUs UJ6ShFBqHk AwDQogID4+DQplbm RvYmoNCjQ4 ZRWux1EpHJrpWOy0 DQogICAgL1 O6yFMuUu5acJ2IcY S1gCEbK2Ja xAQFaOAmA8Yqh9BQ o626O2JmqI JtRAXywYBbKA1ud5 LqgodqM0mj IP5kkJJsH88tnK3j DQogICAgL0 YticL2Z9fruuPiMC 2JQPL8V8yv ciAyNTUNCiAgICAv S3mtoYaiEQ Z6QDFxAf4OTNWmHY 7Mn419BGFb O3PkvIIlmtN1LeHc IFINCiAgPj 3PJvGbVD6dzy7UAP kgMCBvYmoN KcYbNkB7HIDeFsYa MOQ1YTKeMe uzUsK0KGZ7VuE5ZE AuVKo7BET3 NyAxOTEgMzMzIDMz MyAzODkgNT j1TZM6EFZpErIkAh u6FRY9FMO0 OKXbVNR8FUM0UuK7 GLUtCVL2ZI S0WlA4JXPlLHE2IL S4KsL3DIQk Bho4KWR0JTU5XDMc ZRotFIH9ME F9NRKcOWE8FIEiHC WgJmH6OMO5 CyX3GhWeUnSuYJU9 UvL4TWDuDf g1TTjeYfPuCqayWO IqIRU9FjO8 NTYgODMzIDcyMiA3 PizjVzG3MY o9HKI1OgBwPuX2MI FgHGP9RvOc OaH7GTr1MNZ2Bruf IuV9OKXkDQ DUUmSgSal8YLQ3SM AyNzggNDY5 OAD4GnNiMtCwORR0 ESD6OlN3SB KxMEE2MUI2YuCnLc zoAJY0LXE3 NiAyMjIgMjIyIDUw MCAyMjIgOD MsEWS6XbJ3IOEgUE I2INF3NbVl ObGmMIEuHJJ3PSK1 NTYgNTAwID okSgP2KPMkZUllVK QfLZI4XMHf McG0OEF0QXNqTrOj YYi9SGg9WG S2OVSeNvEfWZk1TA F1KRDlOtHq CIq3KZP5TKEwZtJd MXf0BBX5OO QxXwTiXSf1OFS9XP AgNzUwIDc1 GVO9NWMsXdJkEMg6 GPK2NMVcQd EsPDm0QDN8QLPeDz RdIL4IQSL5 TMSaUaJpFGx2TRH5 NTAgNzUwID o2KOQ8RWVuMnXeVZ o9FHZxDkge KtHjBXJ9QiH6XQGp PEG5GIZ0Nk ErInPeTST5PPTnDu G5ZijuXqbg COO9VxS7GZLrVkTa OFpvBhW4GN DvYWWoZOH1YLSmRj MgMzMzIDMz InEJCtQaDGx5ORYa NyAzMzMgMz MzIDMzMyAzNjUgNT M5MWgnYCC7 YtUqAFF1MUZrRIC7 ZxdfJaU5YL G0EyH6QbvhDrT7QO T0TsMgSLWy ZQzqMyU6YipfKmB5 YCJ6VsP3Wo wtJco1KLF8LWFcQl zcOcq0RSns RuH5IxNdGrq2BD5U ROZ8ZgsyUi l8CCp6MCK5ZtohWS n4XZs7YPN0 MjIgNzIyIDcyMiA3 OtXpDzS5WL C9KvG5ERRcJOD2AB F4OlN7FTIx OUM8YXC0DnS0JNMb RQz9MFDhNA Z2VHXnJGT9AVH9Te B0MOGvIqx9 NWW5NEJmIjdaUxw8 XOE2OcRWTb DeLCP0WHS4MgK0NU KsDEW5TIB3 CyY9MGYfUQJ2MPNw WXD2VSOfAL F5EFP3DdL3DPNuYX PjJTO6UyA0 NFHrNWSGIsMpJY8h do1SLSNyQD BvYmoNCiAgPDwNCi AgICAvVHlw HT7Vs579YBXkD2Pc qMYcnm3EKH MiDF6Al966SkZeKR 2UxfsbzW6I MXBcDA5Zw1DblyWf HPV2M0AjiA mykRlkrKF6KNIaHH NfZ9RffELc FtQzQCyjERZuG9Zl YWdzIDMyDQ zuKDRqB0ZwvqJKKh 69OJcmYL0w FHCyUBQgDBX3XVVn DQogICAgL0 a1SAcpW5NgI3iyNX PyI7YqlSBi UI6FKJE+Bs8WHW6w q0VjMAu2TP HjKN3vds4AHRP4TT 9IEKHfFL3H yFUcU9RkesTmU6Ck tEayJT4Qbi PiMLxhCF3LXIWzTi 0ipB1Aztsa sD2HxtBvEUazZd7P rJ8YwkYeBF 6zw1HfpxtILhImGU QvZmuku7SF sUHxUYPaR5jsr8GL sPIaDMU4CR 2GUCAiRY1FlHI0mV MgNDkgMCBS OQhlPSVdP8JasyAX ZXNjcmlwdG 9xPOYdJHDoCb7GMU A+Ay6DMQ9r n2TmTGx1McMzZX1x pd2SRZM8HE 2HjDw1XBTuZ6DmMV HyFYNss8Ep AZ0CUQ5xlPviZKRt NSbvA7zmqh y3wKZtRfBwYBs+Pg 0KICBzdHJl UU2VIziZ7IkCyYCD 1vbpbti8ig BRJWWT1gPgPFFPRZ IFRTwRla9C CWVXDTCXETKYX9YZ yvhm8wVlJo ADcZIAcUKtG2WBEh RwHNFxGUXF wIHoRZmrODs709D4 3jQ9ULU++Z //tg8g3911Xo1voc 1j7pEwtBAP jYuLmjC0d6BZnOIB 7KajcxDyEn RfmSZ4qBwQHF8znR fwOu1Ul076 PyhVLrI2j5m/z3/3 sWVfwN+TyB w/97qpc8/16S8JsN WPOy075tV1 Izn7eU9lLwCdnQ0a umx8QvI/sf dWomaXEAVThhdlZi 3p6BnTgGBW xJfOnVM+nrW6eAUX ph6U7x28+5 639+TA/ybyfPnqOV IxNUS7qBG7 QAwm7k8A0p1m/nS7 iTF9v/cme1 Xshs/hnaS63aQ9zH 2xi0osAcg2 Vm1g3EyWzAhiL+0w wf7qj9r4mM XsEkI2s4yQYkjav9 e+xQ33NYnX DdpWGW7w/F3UczGU SgSSjKcoUU 8m0Cp5PDmLka6Y8v uOZyq/4jd3 XQXIcqFj0OrlPh+I H8e1tObYAu nFtlG5tkamjEqpSW j0GfGPbCN+ BsIfEInWNpT+GGnA MdPNn6R1s5 dBTOvYnd1Jn99Cup XUiFpTfxpB a9frQEIFxso1lr8X etAQuobmig ud3KrZtf78vT4hIr ofrDPUgJJo Zo8RdE2cz6M+pE5I 8SCtoY/FfV QKMzRfQWAtHtaT5l uP8HC3ugaG RjHEHIPIi4E5AOdC Ytj3Vi9VVs IWLRe5/LZOKq8YDw mcCvVgFx5O 9uOCdNvVeGTdY2l1 yliAXNdQNW 3Ht4Z+R++LhsYJ63 HrBCVSRxqE 28iXY1OeuipA8lJV qDEDtdSeei YhEw789yG9NVC4JI vKGQ1fB8bs VN2FsvgvwHW6EpHd G4NOygQ+t2 yz5GEVVsFAplbGjS 0n4ayaAJKC 4WKsbC/nyHXadeRF jY1oRzDZdU /NwJ6omKV5h6xiaN ZbfbN+ymxZ p4LpyAEEz0spEPhX NMKb+kW5+I 59E8vho+VE+ZD8VH tAf1p/yzMJ r99jtphIuNq+FHGi pxgpLhfTxS 6wrdaBvRUDsBjrM3 cvjqlo8CBk xuhj5bc5F25edMwq RAlh8mM/qC 2u/X3tH2t/tLKsJT QS/eM9CO4l kaIh9oSV5H0+H9On whANRGN8/S IXeAI659qFhGFymM lbuGmGJd7D p1xrlrjpl5JYkmrW HnjJEBtb33 M2Ei0jN0YIh7B5iy n/Yb0kCfLL WobWXeurlWhzINVS 9P88x1l+0Z I1T6jZta2qKatAXn uNzcYrxgmz lfa4SvS+slg4Yhqi +aiWapfVrq kjvt4dmEAvgGGp3S SBe9TzGcL0 Urs6TDefHsoYaZi7 EcZhYV6tIE OzQiwD22tUaPn5oX yhjTY4JdPK zbtmtCukM0EfQnoI srvMkcPxvV JOldfKe+H6itw6J/ 6kebQGWowW o7PKLydLyMP7fcmU 0ujguN8l/U K4GHrBF05usOboWn 77mg7p2SC4 jqt4mY2+MZ6cJRNv Cv22d62B7h XequbV58JPB71Gd5 nBFC28Adx2 a5eO3Ob33PV6YkjV TBd419K72S v5M5xTW+WEkQI1kD KVaUMleqrc VVaLT3G46rRSLXiF fcQwOqGno6 5fk4/LS0BxxbjgIO F1C4o0iaHm 6ZtA+jh61Pe2Ymov RfC0rCvsPs smOxFyMgR4pptLrP 79miJ9mr44 LDz6Y/SJEl3iaD/k A4xI0IPn9s 2MYkrVHqbntGvFrf S0pFwmS+Vd lL25RToVTmhajuG/ EHf1BIq8aF i8IA5uLiGM9K2U5F F9A8XrW8R0 WAucSl8mLfDw4ymC pR0YbAHTak ArZVOxjaT+NN6ul2 sfWRJR8CYv 0Naax+V1JG6N9aN0 saNCrT6lj7 GT4xlNGWM8LoBobG YnlB8fJ06c /N1zXSxpYTJbM6Bg akBi0ZQX24 IAMePoeebo3ba13A 8lziMF4Yhr 8VbokJIK6gcdtuQG V3fGAK6EAf qsaMXZxav6yrwdoM WgjV+vHUXj wOuznKYGTMLvV65z P8SyopWIei T70J6lbjTmq4nmcc LI+UgMMQrk LuFZ2hSn7PfeTY62 z45R24wB3u 7C9zl4+hkvUqX+Lh VRtrXCOoze 6G8uhm9FgqE0OL/5 g8UnERxV3Y qHySqrQJuL9/2YRl kYUZ2KIvWh f7s81nWwLJUU9xLj jUPiLbzvzT LWxiEyfYJcQ3Mk0u BaLMXe85U/ ukyD4th5e0Q8F9Tg rSN/ZWtqST 7Yan5WXW5eH0FC6u ejtduanuB7 7rEkMX6HkAe+OqOl j6uIWqqW3e cXrNECW+Cwb0J0c3 M8oSHd1oVZ 2npiW2BN2Qtq1mgz sXjeBlQAW4 BdwJuASYQnx/qBOc FpcAZC6Sxe KdV+X2z/xaht8zTI ttFoEwi1NM Kk2ZcWZujOcUZrrO dsRHCdCm5P M8fC7RYCqMye9uN6 yj9DiUB9yZ dgiLi9kqCRnx7Loa DereNKbDp0 sT7qDkbdnU68plqW sM8afLv8c4 7n7gLfdVE5xgmcs1 nWHC/ZHILP iZLI35LEPCl181X1 VjANR69DhO w3aC984iC3CY0UGo MXdeRp2mMC awRgQt4hpYQXEbd3 5N/lN3aM/G Ls6xTIx/YfLD+lLc GqHFJa4yoZ /LSsz2g1aiTRPv5W dgGHgOOAKY /g+zG+K2nRTUn+hT USrWYf3Nyt QoyHoVGv8XwFG1UR tq1sazek/B DPWPkBXusDPGPk+3 C9L9+HaH+q 6zCcp9wpZWJ6Di+a 82zP1Cnlhh qOdEioJ0VGl9fLP6 QMrzm5qr4T EJqivkYS1D+huu8M Y023gRi/w7 e+tfw6PpNOVYmnPe uilo1ZNZQC cwETrnfgeocqgHuA 9UAIQC/DMx bwy/7SY3X44NRRGk WSa4lkPoCP cJEG7Rd+/d6lmJxY APLJA/IPir 3yE6Z5opevutnML9 Mpi37Sd/JR /iaTE1KLEG6FkWS3 IV/e2ibOZ/ GsEitz1ek8LcSTzJ RsQfI6KUib ooG6xC3BbtkO+2Fb +iB6tzraw4 QIT4DZccW5Snhnhi /pvS+DC49H /Y+ub2L4aoMg7mR6 wija1is9FG zr6to2NhmJcG/0q6 +Emmanuel/pZTPh 4kf6+Iws9EY1+Gi4 8OgC101c47 bXY/up9m8uR54WWa 2AWroBtXQD 0KsI8FL1bB2ioeiB OQYaz9YQ5L x9ByyUsckXqZpInL VPBKXWU4RL 8sMnb9k3PxAieOjS UdFKVARFxY pt0MXCsEP7r3v9cz miYr+oeFZU lIuKdFGRJiraiAq/ 1HYxtdnOw9 opkq/G0x331EOs0w ftEyNTUaOp 4ZAe9Yh74TxYWMaK BJO/tc2c2I id240mrg5/595Zcz Q04gRkHzKM RauF3KXTt8ZX3yVX MxpyXx7zRW GmOniDXKVQ9nYZ/G 95fZExM7mA XxB5MmwAT3vqSGM4 xxFxixKMhc 22BH5X3VOJprn8ql rUYMvYlNiM 1EHq5QeuclPO5pmd JXtQ8+aYKu EwkJlSqNala1g1li 8bUVT/KHmX eQaMS0zOn80uyPPx W6yuTn/R1z 9e/Ka23aVnJV6CZ7 mgPalc+btT cvgqXLOiB3AyZamA IvZO3hHMiw 1pGzqu8yrMytT9RU qNhPOLlBd9 7/tkiBXmZ1oVhft8 b6cs9+3LrP Zg3XW3OhMz444Yn4 Z37U72R8Fm wtn22g6WWQo4nu3J 8YgZzyAn5t FXlsMXjPGNSh/vG4 j88lIm+4Ll rWX0BpkrCb1tu7z3 o7xk5qWITd xnBwjbPkUVGmilMh hCg2TLM6s1 jUZHs5jCokzvfATk wxqtlq3dJv UjaDwE38pz7Kyw2J pNr+6VsCub 8UzDqhj7YxbywkSB bmsB7xW8Tk YI0eh8HzxII1SslK GrU4fpRTOt 9xQqnOwP/VAUqBHR O8sPqBGRCE UVUuHonFDPjMIajz Th9HHmPOCQ sBqysOT2eHA0TKqA CBpdXCMsDl ibCLjQCu2EZrFQpK NHwpdJU3wF TUD36woR6WR1enRq pApEc0J0Sw j6QDufkhhwJSkBKD bTafPDkL4i TDim8F0w/4TiHTDU T+Tn7RD/YF WFbUKgJ83GJ0ZhZb +8kpLCGjFW 8ZFf/AN86DH/UHxe KN3EW81dH4 lxhb8ChgGlo2GMtL BQqTb51wUm FJ8umK+qvE1+XlWb NoqnhZ/KFU 22M247t/408KSlKZ 5qTpOh0hvi NuW1dM0CGYOLUM6D EMcE4u1DOv HOPje6vgEAPUchh8 JclaSJszwp Nk+uBm2CbaWbyyyz e6s3WHtqi6 +NTNWnkwqtQnC2Y2 UV1P7MG00T VUz2+9aneEMOJ6Zy u20rNk0vqU mhksDUvNCUQJ6/qs +FD4ZG2Jy+ gbwqmpA/urhqQnBq XnWfYJ/8wK F6ps8RReaO56iawh rDmfzMY3J3 soM0hHea1ITP3O09 qkTM5MCJ8g IaICgTOBPZ7qLetv f2mPBRO6Qq C2SUiISY3cQNiukr nRO6ci5zCq VhYfJOWCwbqUFGSa hhICfUCOCo Pz395nbooBuItmll RCdyEGEx1T SdYqMTFYvgJoEcyp g3v3w+JeTP yLP/uxPI8Kp9CMP7 M6P8Yh/E5Y Alda/OW8rGMlylREJ ehV12bgzT1 VEkBlhIj2XE0wAPz Y+22AzsjsD yLjtnuV2s65yLnSX fx/Oie50Os BcST2pEqFdvTfWVy Fi0MmyC4cP wSPM0sVyY89M0QPb xFlJfgBcux PJw312TQolce75/8 gq0siZlsHw 7Rx3tiIbqC8Wdd+3 JvWtDO0SwV rarODNZgaoPDgLFN HgoLDiCF50 Il2zZmmpDl4Zqwen 6OuZh3nbLM ewkLxyixRnSmhIzY H/yo8Cce2v u+Q8/6rBg3W4/j0b VLapPUJml4 QF/Sab+2+3TQoFPk 73sqwweq6a IZvXSlXN9yULOPBP tHmW/4qQv0 5jiW884pSF/4hjK/ 0mpq3BWWmu tqHt/MDLROn/3g9B kPPjhj+oPy 4IwHHpgBN+ZPe7uM 16cOQvJdul Msy9yriDeg2BAUwU KxlMbLTXQL C5tGPr3Oco03y+Dv Y2rG04W/DP Sk6DvSMgH3URCJAL AR+0N5g8Ib l8wmf8HzPJ9jqovY ZLvZoqou9H SlwOd2C+gq7TugV3 2G/7Nz65Cm 0US1yWzSlInBU/xh nJ8Z6GxNHz uqh3qF8tHe9AJtpU IIDIWN5z72 6Fy0x1yiXmtIU3b+ wbuUIM/BwB ZZUPX8QEmYI7QLHA Il0MtUlM9q A+KVgVYIZ7yqKT0A ByKfxYjPRr o28C+VVing1BJWX5 LV2oOr8Wj9 o5dAM/H+4+z3BvbS cP4cinzS/I 2G51DBjFCmINE9FW P0sl4GaBlE HLJMXhVP96LNlODU IEMpRGIn6Y HmJV7ryZ5RR9Cl4g f3XUaWS3Uu 9VmKLIElw7BoR4Om bCea2KjyHC eEzfTiUpOM3mIV4u 0V+AGG2d+o j4yNd8E/5SH/24F1 yPML1R/KaD LX4tlwFr0p0oYvmW kKqldfA31o +S2Io35YFaa9kppa c5NCxOsP4N qWB+Lfnw4xb0ezcp 4UddJ3SmcD b6GAd+c+sTz4KhKU c/rhhrOUNo FmNds3DBtMoBWMAh Q/r5R220WT ImACLYHOwOfABmAW 0BsoBNqhbE Z1ujqc3MAkC2B/QN 4w2oNWCAcv s/A7xDZsqM+Zx5y8 bKgK0ool9M CV8+Eurm7BekR9wi JZ4o2dZgL/ Z6l+/3d+T+5TdRRj T/+aBrAMag pbl3fRot5y1pFhUp 6hZYo+Q4u4 t6G2CwQ04d6q0rQf hlX9m720wu bveEeWpFiww6bg2k JpvS7LE05G nqE2eadcgB+jgdq9 NFk/QXlae+ opnDUK2ts2Pfl6ba Tlmr3it+Hw h0twlgtwr3TziUxc bJk8tTxtLN 1eqx+WxvYLkaY1E0 8aJPYZm+VC 9L4TUaVogiIXMrXp tx30brH9yt TNPuCu2SMd1QUbHa xxnXI3AvyC xjqwoLcyPEl6K7Hm 8rvC5eiEsS i+vbvO2WOP6leYQ2 pg7Gp02BlD AsLHGJ/FAd5oDkbW W++JCkzIh2 cID63laBKZfLgI5/ sEPP7sppjJ +eJ3rD2gO9aD3p+R lHW+06d8oC cC52EKVj89GBiBmw SIPpnIcwPr ZzU/JMoUU0v+OrOu f+9mV3QrzU tnRD+dGdE/G0b2y0 lq3njko3ss klxu7tzepbUidilT 9RzrGZc/ko cum3Cm4S0JTz+g8c 31cu0xAOQ7 2Eg50YTg79NXBZGQ L5hrhR3ffA AVkIS8u8KoJTK6YT Z8zkDzyh11 2t6dS+2fktGXj3U9 jr8eg2dKsg iGBiSy9TsyT6V8cR 4zTqHdoQOV yZusLTl7uPkd0SVL +XuksggA9L ZiSKEvxXQ7uqaOCR RePQ6ZhRaR ffqNlyXU3lywOiek O5ck7shhOp oS19wscWoGQyeFZa vMrylLHwNd d0jKdS34ITaehmhm fGrkjYeeOE si9nfDC4/W2Nax7s BIT6l+wWln yOmDJEcepVu2eyz6 OL/HVJogxT a93kniT3Trtqx3Bg 2S7WhI1nwz O3rFpqstxNiB1TIx CnrMHIMxF0 3hmlgFZAgXVQE2LE CrF9cON2ga i48oPy0Ltz+Pt05p m/E+C6DXAa 2HniVGIraR3WAe9l 57hg5gs/L4 4WLKIesR00TcXqGx HqRKHYatOY aQFxlo4K79EZkTlL 5C6szWZ6v0 3ivznO1lksvGBN29 2zJsI/B48Q VwsIzy5ESDFsUxrp K1L+kxbTAt Qz/j902F4yWYAdWv +ljPOPvwMD Ais8vu8HhrO7jqu3 CBH2d0Uu7c 011o0EDWiFRI0G7N nfQ/YqyepI j1HKvq89oP7TalcU 69KbXTQnj/ bbAtOfwQjeBw+Rb8 r8p91vskv2 E1+aVz29dR080cgF 2p9wwqdHyT T9og/gaM45N7vPHa EkN0gwY5Wn Mg+IAQ92gDIG5vpP LpwqBkdREh cpgEYu3Zl3Gwta7k W0Tqu4IL5F LyqffkfJGOefSHqC /l5XJbjcy1 I+TN3yvjt+9TrjaU glRqpD4s7F BPLWt0081JKYRwqL n1LHkCm6jD /pp30X2Pyu0tC9Bb 8e9XmrERMI mYW1fnPiw0YBTtuu xLOn2wMdIl MPBmtjt1s5pwB2bo yW6MFO9V83 Ny85I9KejyS31jRE W1hKy0bqlr LelLy6W6FR+RjPH0 PLXRyPqxPp l+Jxm9JgzWFWk9bk 9M6pnN8ZWi 6xzrfY4/tmz/LtC+ TYAuqn7/Tv T0U8Qk2x9gMuOk1k 2P6lptXeNk d4K/qVufbjsh/H4V HtF+6CvEdR 1RLmxFrNg6/HIrTQ yH2w/q+sN9 1I+aB7VfgHI090Y/ rxcj2i4775 8/VQ/GUwdtLcuEPt a7hD57oGyg FSiNysFcZIzANt3r 2ZmAwEM8Wy SAwWOXIbdhvQbUxX epkCJEaE5E 0utazrOx8gGcRrK3 IF9X/SD1B0 3K7AFlREwMehYjTg EiEbk1upIQ KVNmc1jW1fd/CRg7 +4G9wGv/t8 bTgZ0BlWFjl5NKdm WQPgS2ycau LpiFEJB4H2vGtmq3 6LsIw+xd2x 2wAIqUwR3Z+gjRqe /fjr0wz65O Uk+y0J3hmDsu9H7e e2NjtG6+1B +TsoeV0NQvU1FQjQ s8FvLR94s+ Zaak4Onhd4N2n5S+ YsefmQj/9c BL8H8N/7QWXrc0aJ aDdgSaAnFI k8xP0ev058G/OL3w +uOXUtgsUy Cnj/e8QG+NALI8Yw y7Gq35fl5h hd81GXzEBKOz0HM7 06ew+0Lha5 +fW+Q9WY3XKd05bR UGNmVDtqPZ xyP9IobNAhSeJ0GT qnqfMe4q53 khE2zu0U2DkWwiWP iZmiA8vsin WhYQhX4D58Y9IVDD banl4GkHqg 0E5J2w7E/vF678ZF N+6QCsw9H7 aEfbScVwNksj44KF nT4W4Ii0Mh R819w2zy915N/t/7 Vm4V0jw4T7 hZaLv7P16YbqXFTs Lv61qG/u/r nb4ikP6qYo6Y/U78 4vLvU5DDwC J2D0JhUm5cKcaGk3 1eh6u7KmaZ f8an+SVkF9B1QtxQ Tfc+2ZJEqq Q8S4+7XgtYX+/Fnb 35UhchzXjT nXnomJOgb9HBbsYk 0A/CT3azGQ Ocq6D/3Z0wRQ4X1C suBfBmBetL GMRu2KeILm9U5h1d z8v4E/Vj+g fRtigGBTarQ5Buvd ap4SsDh3cR /JV6aXVbNUhZPso1 1Pa9yQlRKw 8vD5uk6w+l4/CETY vAGL1cCt3U s5AoVQDQr5L5mXta ggWw8FS14P jYZ+P0w3l525O52q fDvpguM5YJ B6/bq7PC88Vy4Es6 s2JDWgoP4Q KgPU2np5iJQP370U x8/7JVaNsz 2Cap2SkBBs8qUvjz iL0hq8XfMT 533cb+kBrQHlOXvI gsd1XN0t1p jJ9Ojwvh5bzE/5M9 jGEygPyNbt c6oxvP+fds7Fraid mnx0wC6bzy cN2QjuMgXgTxmluy Vhxjs1bNU5 UO5R0BTiw+hhM0Od x0gu29SrVt +v85k2rEo2c5oCY7 faBEq+CTSE 39RLe6JSzYbfz81i 1cNogmy3sI bL6HEJiD0wZj7x5u 0M3z0g51U9 J2zhKwyrO+7TT6CR 2kKs+9w92S dD95Ra1OZZV6bQcd uwdM9OTXsT pv6XwXdkoZ95yXi8 oJqGncMVqH r+QiIFDY8wilIHoX h3i4STq2/n foQB9OmYlF7Z1P0C oH9Tm1YCMX ke+HwqbI3DiNF+qN +vzvDucABe 40wI4hv04PldNvKm 4gOn19AmHo 6f0KhSH/BoAEhy5i WsDbKZtQP0 Psk6TyCIhz1XU/UV SVopxE68U7 eF93c726i2rYBlN1 tLfct00k7L tXVLxvciwV6D5+Y6 Ex/+e7U+zh 6pw+p6eUj2KkNQHp GcwVX03fyH K2bd03IZldVPleR1 HTgVPhg6dH dCqFqZltE2ZA8Wxf XOkF8h/D3Q e+Vdr1194Oe3VY0h f6POPxsyVh IAZS4fQjXlNnwYOU EO484rhbKP i6EeoIawhndAON1p U+QIdJXy71 GGvGNH9rRMibDpXi 4igDSTHbRz nlmgg8SDJru0wQYx ppmRQDjTtE z13VsWPBbLhHlvMF bBiybA49Jy NFj2IUFPN/8PyHGx fAORQHjgZ+ QrjATCC3+MIZwd2s rUWEshj6Ms WCQQPixSDugnrGNr Z9Ck2NlQZg vz/VqnK9WS+2p/z/ vYwDTH/2eH 778ArH+tNQDWylaO A+z3e7hPD1 H/KqHfaK97n1s4fS h1JwztaaH/ 4NUDq1vRsGbusVdB tGpr2VtaL/ Ms6B8i/C8Zj9setq JZ9+4EDQBr utwe1cPynhMizt3c f22K/Y4qXe utDK2UegD+0KKzqH 2zcuNL1CrZ 48S7WpOqk8BRW/zO L3BeZ/UC/a Yxoo8sNiVd3lweim q5wCIZ5rhI 89yUq0G+/Dq5Lo4h Fiw3yKsvTb iBHjzT3MlE1sYYuH +rNYe1tJWp vLQI8zPFCkNNMqI2 wBnw40Fboj 134FDeE4VrpjDQE+ lehgu32MOP YGnG3ogLy47R2CCy bcp+iQVPM/ 0R1K0Ws8DwX4PZt0 B609MZ/nsw rl1XO1zc0ZvlbKod nxPcd3pz0h kpWWF5Jr+eva5a9j xGIGBA7LID 4m3sXU7LSC1Mmt8v qWF1AKphuf WBhrgOLfxl5K1PpI D+pL2/ovof fXtGSZXccjcbc3Fm dLg23sjYX8 NwQXgbYmaA6SjIfG Vf6zhq1xXA moHO7mtUarBp2Hvy W3qNRQk4W6 4BQ9HfhemhC5ymrf 1CGbx46+7m QnXiaMo5SG/HufsB kS2g84ruey FOnWs5+pK36H6Dx7 sqaAXflYi0 s3h3tg8eiIDD2oXx 1NiH9jod4x 7hVeYr7HsXv3Qrwk MGn+OpPZFI 6ahxmnQ9qz983obn Xd16kZPA5b ZdIZFCW7IpOxmHs9 mfAKFtcj8s v4aKseD9nfWHgiLq miN1ZD3ISO Z70u4Mf8dlIk15lo 9MXlANo4QQ iG0HkN42ZAdVAj6n fcy6PmLv5W rDqxJKqBEx76LiL8 9x+P2W23f7 2IZah/dJ4BUlUnLD 8+fJd8faDb X10l+0w3SjiR7VGz MGF7AmFmrn 9cPO+tgp2E5o9KTo p7bAGi1+71 8jO5JwDs9Rjw/lvs d1LqYEzK2m ioqlW2LH9hCHjdkz n6PjoT4Wx3 zBAb5BicfkxxlL15 /8S/funD23 BHho1C5YtGb4mpbp rZ/XlAnA4m o5fe37hdxdx+/m/A ua3qQ0En8y OFkh4Z4BH2UXOSVg YM2qCPg/oj GvUcsZ37mH4E8GIT 4ccaOBw61e jJGyTnbpSW69UbG/ PS65nd0RkN HmVh5EMuo9pTf3/2 eAOiAPZlJv kXRfy4R/C4iEPP7r T3f9cRfDX+ 2gOhp4hrl5C350ri 3MbvlOvv/T dvyftst/6r1/TvZw MUa1AFh672 nTmv88NuiiKGKIOa A8xQChSh1P CtT2YqrBwGsK4ofV 4gG9r1aenr QlwwS6pEquEAvK79 l/M1ko1IuJ 8ncrzx21sCQL2uKY avc/T1u7nt S9Hdv2+ibn4jd6Ro tG3O2wrbaZ Y849WR/hCxx3AL70 6C/TtHNtPq wITe1wYmKQSyPbPd gfVum98Fjl OxmJD0KalGiuHzUu 6w4H+xyst2 0/l2oaR5UJ56U26e LniYl8NOC4 0MxVfoDsl3tHbp2F 7TE7/Kxcru 7V/pY9CSUA2w2iNA 2vR+gzsKaf JFwa34pWtlNyDccu 2n6lppBreM u+c7PAuS/Oaj3jxa pthObDtY0H L194m0su4TJhNc59 63gLC8e/NZ XeXd+3U/ySj5DRZp CfuvuDOHWn F9wrBKa2bvCgKKpv 6BcjwTvS+q R2EcNvc22H18IguK IF5iMdtCyD T44Mneum2qwBd+DONALD DJ2VWqRJkf upqwo/hX7yE/gBTY f/HAZPa4bG PPabaYGO5Gx8zL5X YBOXIT+b77 TMR8IyEnZWHbhKh0 F+4JNYKWmw OUT6y98nruEG1kHH 77yvwPwqzu WJOsvjuZUKoqdRgb SPNYS4VV2b p/iS+urjqQnatBHQ AF244Ql/8L lpIETerntRf12W0y wge0sdqblY S9wUvUPeHajLy+gH E2sx9OA3YS QVA3MA2zXh9Csza8 k9z7vrPO9l NNS8oo1ShWSr1EnH INsU852jla xM9m+Grhg3pV95I6 JqiNhWB33q quiaoxM8voZK16cT GOjc+55mn4 /BBsXY0+44fr58X1 nvbvI1JdrT fXHmnEiKmdxiy7VI f0k2dyq2ZY aRx6l2dW6OAQRdeG VDuKKCTy5v Yt2hz57Q7V4Bp9TJ n1Yx/l+fb8 aPz4zLzGjBjjuaap sa5/l/5ZlK 5N2N+m7q0CrQSDXp 71hYdMJo7E LAL3eGNcRz+F8A7o V+gNnzt6Va /VHbXluuNcDYnoc1 6CBq4+yJ8j 5pK+ivVvoKtae/xM 6VuiV16yi1 23Ad10zRcl+V9+bY ZgJG6F4pfc zfNXD+g539W/W7ib u25kkcOMak 2jdfsoJ17UstOv+U sW6R+6ibPG 7iSUDZmWdMtU9VLP rTd5rhkh5M WfkaHWtB37U/DS3G 4ew2DjXnW4 mE/GpYn2H+tfVVSy 3J1l/ybVsH yY/A4+I74Cs+q+H1 eAwP89qgxN U3/NMeKyXLdP6Ojk C1SFd5ILZs kH8HU5+95NiWmyPo gs5nxe473z n12mcQ74vcCU9pgr bkvdSe7/bW azlElaj67C8L69ST gNgs0Sbo0+ 61u1GLZ1rn+yJyXc RkLvr74dgn 3lrqvTvLPwMs6zgr q3Ldo8Wn1h 5IFJNVfiZdmcv3G7 5mvdDlk01G t/Tq04PrZbFza51G Qjuldy6Lyp 8kqfn+giB24sRShS lbPp6q7cQO IuwA+Lds85clD76O 3gT+CPwdeM upsvxaZc78wQfhpr 36WO9mxZ4d qYr8ki8vdPTr3ixc 6xqaOF7J++ IM/l0BQ/12ysUmvl mv9pA2Pnr1 jiWlREvjS6FShn4M 5xsTtDjYBy KCTvnjJac1ag3Tav om1barrDui jmD5VgiGURL2uTp3 IVvfbh7AI0 s835mr54neoOmsjv XtyhT2x47R KkmXjm6bXxjn4Xm/ L7OiZuH8Vk BqiOEXX43UQnPeUi BX7cDQBENk gJ/t2Pd3HyHmboww 09VoLzF2nI skGOb3J8k9+IpWa+ VoJ/BoL6l7 87m3g5X5Hryax71A tHkOA2Gv+w ydp33mt5mLfKHHfL rVQGPymVhT Zx1LKF10ygdeVokM 5sQ9dI+S4U PnyoA1HyzJF4duOm j5PEsN04ek RACYIF3MMzDrvKnz 2Qxrl1A5QL 6uF/4o1wkdAsJ/A9 1HFB3WdDcc ilDUYpy6Gc+fK7eq Ijgic4Zmak YO5KfcY4MaXWqxlp 8+8o33JH2l m1y4zGhO5sdNUkw/ N/OcsGXkPq Z5oCiUnhgtUg6Unf 8RewlaN9GF ZitMCnLAO9GtRFtB U2moG8v/3a XSMR/iVBuybFzPW6 m2vyDp7inN uVyO5/g4d6HRxkz2 3kcZzcEzhQ OrvH40iY2wRcmESk c3odNY16Zo 3HgTSU3xQGP/8151 snP7s+zI02 oygy6ngdVV3OLaIj GkJf1dRQpp ByaOdMOD5fhQAyVp cXUDC1WU/7 0Y3NWX95+WOIZ0MM 5pC1QZcan/ UvB4/6I2q6CA2Bc9 PrA+iEBWZJ qz6Jeh6D/8MbwtL6 A+odye+vJh EqN2uL3qKheB1P+R MzZdW5EQxU gj15WyspwP0d+qe7 3FoM1QdiUP EkWdWpZg6kDbNMYs 59HRqwc4OQ gOO4DgXALL9wC3Uf 5l0AeMmj7T QBNzueuXXNkoh0Lq 294YURbWMd WI0oyCgeleqbWQ8i HV0JRqxWaN fgm6+OW9EL5da9vH X9iyym53zk NJI+48pxOUWPOg7O dZX+hHrS88 A0STkr8HbyxvVkoS A/Etp0k4sr 5OwzELKGcaKecvvf f/S9+b7wkq m+CPvcxbrae4S7kA sT/KaTzWpb zeXwh/N26gVHiUP6 I5jNYZ/01L RX6MhHq+1P1LQq1Z 1MjTlBKiGm OePeiccWCdb/wW9t sxyFiiWU0S dF9u7cJYx4Jw5Iz2 Mg+2VAnmlY ygVc0RfZ16SJbJl/ b9cnmd9xXc 9qRm1Jt1Qv9h4z7i vvA58nFTT9 8JsPMwcXJZOQx7RC +oGjh1FHFO dZe/xW2bFGuK41XQ 0X0ggRFX7a lFRe6H8sIgZ0ajBA kzrf0sbzYk NRinb6DvCrTvqjaH c0e3hIS2/z jqAcBTqU1PYhpk86 tejLijX+8d /Yis7Tb9Lv6H8CJ0 93XWZWZEg9 nH4nTOuH04JCOq7L H8cqw4MKRI 4luiZ6TI5VDX4+C+ MYKl13LXYG LU778nwU34a9/4t0 POmr+D+/sg BX335fNIZI0Ea1D6 hC0vDt9HoN xBv5gi2dRPADk50V HnYvt4THoR MrcxrEQ1iHyXajz1 VudgAV5hA5 i65I9+yWdNh9vFVd F/9cXm7WWc TuWWa797/rK7FuCj 9BPVQRKWxa y64cgWYHWZOUpZU6 Oh3cwLuT9u YpT3oOIH7y3n96jc b5/mePi07Q 2Me4ulTRZ8y+qY0a E3n5wjmB3O kYU6nrLzQ9LNWwAz TO0d3hVhNN tZ38MPE1TSnZ4sgR aOZEs8PTVg H3YqTgDDVxIIrxQ/ YBICJoUFlI t6YVf7wdqlT0Nq/n M5g+CcFsEZ zBbMlIgd7z+X+nbq 6M8P+EMH8g L+GjF+ZDHcK/MCJf 7VL0h7XIdm Xj7BoDsgKmK/P2F6 bt8nBv53kJ Gju9ayc+Jeu9fW7s uJ1TmPeKyK VXQDOBvAFWoRmFsl PkTBblUg0D eukuRtBKFCSYG8/F VrMW6cUVal +ZPKQiNGFufnJaem kdOkPXI0Jz KTQ8T/NCRDsVCuKi Ab4qW6orf/ JO7jlpPe1BN97Ics WJpcmtGwLF H5cPQzPZlKkeD3tY B1zjNFNd3R HAfV2yL9sItEM2S2 iqvXQZ51Nx Gm0StAwfcVf94pR3 yM7eObaRDB WlmAolegEgv5/8mE 7ARL9dEEcX L9/Vs8Qae45q31Iy 22xl2XXdqA TK+lPKbvQxhH6adv D3iWovC3sB OUlO+zOG1kDR8gNu dKJuWlVDWj coR4ge4I+hPPjenU dQl6bD9pJF 1jHEfDRuGOqXVxyq RG2HA7ev3q FVbHQRQAIaYB7GJZ 4gDeqSc/pv shbsa1rNDRqVVyOA laZEYoKre0 NnI4m2E2nVFBF/BX fk/oAYFv/n ZuyCQnxEyL/Z7Yyf 2gnppp0xAP MjJCHTpwF/Hkok0h Yz/l796p4/ Q1UnLMU+sHQfXRCN TtpJLemaj+ 6IJl3EzohfIQttEJ aCEf49bFlh UUzMwoCclSjtntxs XC3WxPC1Rh eWkAPXmb+kFQfMib IscPQ1y6rx 703iHR/Hbzi9ctoM WBwpHji/35 bkSU8ZnLEfbum/es z8Iyzvc2nH qbnJslZOYb1p+LcV atMG4B9wPr I3fOPGov8lFAwmZs UyfKvv03du XRqam/MFGNdYJTKX J0iKQvlTzN uf4+5/wYVj0ehFcQ 2QQUBNs9QK P4AZNfcpsEtfsUYz +oo4H9oCTv y2IUds9fg8rVDwgt VFnyq5BT0X 39sQDeo7adbOwv8f 3OnQGPIJ0w GCHFK8SUCitjmwoI GZBRGce0xN tbK8Vh01nxjkRs1w wzOVSwogR1 EC92deEKzUDSPFbB VgXFsqLxxT gpulyBpS0ugdUmru aUVLVBXPEO P/P1AjLpaiGs3dRU IvMnsyq1LM /yjiBRhYrVVYDyT6 bVbDZ9xphv PMVFZlj3H0pVUJTW Aml3F5Dxo3 7hrj6YOWD4u4x3lO udhX2jx/qo UHlDeqr1bOP5u1Ja lDWGMZM0yD ZNBAc8juabvJmnQt 0soPEIAN4P AKpwYu3juRCtDoSK WIbg8ZZXQQ NSSior/fgGUPyUsc Q9a9TYazBx VML/pflmWP2nHKY3 GyKpaoqtKT jg0pc65H5lWbGMbe g7uEAVX7SJ 9ONjww7eOpM+1aUU sMvHxGYXWj mhcnwgFXqzJRfsyA Ry49GFxOOd Zz8BdO7Cx/5f/C8u gpr/A4SMQT BHQoMwERY0btCgcE 0CGR2ir4Tc MGe9NuLiPM2fzx2L BXV0SN8WjB w0QSEnH5AuABPrRE Vxk8UhKI6K GQ0gvUxiSnS6Ae0S GgGff9PqKH FtDQpYhXVRTW+DMA y9T9p/8LHT UdK3mZqBGIWinOSm AIZC8fDBZU NWDOrk2yzbTBsi5c Xys/38BXCB 1GivBidH0onznnZX uftmql5ziE IGpjKccaWJrjOE9K UZA43skO+p UbcauoBtSbWb+TwH 4I2Es4JInF Wv9q80oug1ETUPGs Rn5n7S7h0u uQYTcHRHpGM69pnq /GbkSxCt7O +wy6WycPOrwN9uJR SorAVBDD9j dPFToB0oyhsVGw2E yIvgsdYnxf rEt5td07zQb3vSZI 8tMLZMTnxb W/hY9GCCE0L8mi6r 7p0H3dsAN+ X6XaHTitBLDaRaHA E0qpDmyV6D JQ2fk9SoNTj6GHBc TH8tjc9UHF vEHjHfB6N0bGVfXj 3xnSCdh7Hh xJE5q4KMWmQnD9Sb auUBJU5dX7 FBQUFBQytBcmlhbA 0KICAvQXNj KX35CMrtOO5PCRBE ZWlnaHQgOT C7H6Tja2CammJbAF XoIx3FDADv NatmB8XiOaBABaPy Z3OituPVFz 77YUgvXO7vTHRdUQ NvGCK7ZZFj PPqvMA9AaWEhmPJJ bmdsZSAwL1 M8WB3IOSGQAnIxH2 ZvbnRGaWxl XwN1OzBpMQFCIz7+ DQplbmRvYm gRDcC9OSXvl3XxKR j1VE0EJPCg BTopSD7Jz639V8O8 LzK2jQKyT1 bLDh0jhGV3jOYkN4 Qpj3BCo791 Y4LXAVPVAylZuldk fV3LAUIYq1 lUUD6jdZ1AKMPaqR f0dU8VALCq M7aUE1xupEQvVN0o ffS1NV5RKQ oec4AqyRWsPEBhXr JzU35lAHPc iC2bKAbBVVCmvOg7 qPdkT2B0dX RdPB0ktiMfMN8+IA 5WYKHqMy9w cWJtg8CtvQT7y0Ib NTQgMCBSDQ hnAA6ALnLfXWPyX8 dbMCBbNzUw MHMkGiLsKnS6VE1d EU5KEr4RCc KvJN5zhm6IQLIpTC BvYmoNCjw8 SMdkLF7WyASaG4Ry tiHmD9JjqC kzYW3DzVPiCQ3ZRB TxIw2xjT7E QUFBQUMrQXJpYWwv KX8am8Metd cvSWRlbnRpdHktSA 0KICAvRGVz Y1EmASHwcQAuhpEq KNt0RHKwIX PiDQtaYC8Uj3IzeI NvZGUgNTMg MCBSDQo+Yz2ZBP5k z6CsJYz3Xz TjCI1vhk8PCmU2XL AgNzUwIDI3 MGFeJjwyLjM9WGP7 PdV3EYNvCZ t7GDZ8PtOsRSVmYm MzIDMzMyAz VHlwTSy0ZWE2BCIv NzTjBvt2OU V0NNF9WZRwUUZ5DF X8YbA1DPGt UOB8XAL8PjR8MUCv OOV8UFV1Cb D4JWGkCjq6WWD9XF X8YNOlRPt7 VIPqHTu2GNP3LqJs EAW3WQQ5Ze X5IctzKlAhZElvXa M3MzblJjSu UEh2AOR1SeDtApx5 JCBmSIU4Od ndULM4SKlxWjK3Cx QfEwd2EPI7 XsU5FohoMsEaIUQ4 XaT0FCEpPx FqIDG1GdW1ORZnTu Q4AZJ8MtX1 MTEgDQoyNzggMjc4 JUE5RVX5Ml rvIZS2ZCSkZdP7PE ScNKG3GCAd QEC6KINfHAS6RVQ7 MDQ1RVWnEJ L1MNAkGaOyXsMwXA AwIDIyMiA4 TzFzOCM6YDE3AhV7 LYMxCTR0ED QtUcW1LZLeDrs4YA R7UvW6GUWe NzIyIDUwMCANCjUw DPA1GCThEc L8RTU9IDAsZiRgMO k7IIc5POB9 SPUqWrKiETz6VQF9 NTAgNzUwID h3QFE0AFScZkRtVP l9KWB0AQBb NjEaMPm6DDA9QLUn ZtHlPLy4KK P0JKFjOeYyYSa7YB V5GSMyOyAu VJw5SVN3EGErUmEj PJ3IEnDzCG x8FOH1HSAjOqTdSS k2YNO7IMEb QhViEGa3XPA7CYTn Pzf4HXMpQw R8JXUeTBR9YUE8De Z1DXKsPxXl XKD8SqLrVaArVuA9 ZWZ9RCG5XQ ZjZNx8MZAgIpN4Kl cgNTUyIDQw VAW5IHshZkGkUYLg MyAzMzMgDQ j4EbQaNUV5ZBDvJu AzMzMgMzMz JSI0LYH5YMLjAQV3 GTtvOIE7Ww AnRhHgKKN9WnD7Uk jwZaN4FKF0 SwW0AqmeCjF1BBAt MDAgNzIyID C5ZxV4McbiYqM7CT C0KiQwWqfs Rpe0WLS3ITAeFjqv NzIyIDcyMi Q8TivdMEf8ObkfUp b0UDd5OJR0 RgsyJPc9WBe3MSU0 MjIgNzIyID apRgW6OeTcDtA0AL X4CjG9HIVv BXX6UVB2WfZ3ZUYo IWT7PEF8Xt G0YJSgIKy0QFYnFH V2YHDcVYI6 WUC9MtE1UVMzQdf2 OAB0JZUdFt ivXez4ZMR0YmOIPd W8GvF6WWOk NIZ2PAQ3ClV0PUPf MOG6UIN1WM M7HLZcVYE5WSM0Or D6BODnXFK2 DVRvWPG3BWEmQIOz XH9oCLjeci KzAreICgT5LZLge7 AwMOp8PT6T FPQuPCvbYI5Xd779 CJVtC5ZrhZ Iftx9HSSBeJi3qoQ 5hbWUvQXJp YWwsSXRhbGljDQog AK0Vx0Cuum UwFWD5C8JtlQpjtM jufIX5EHNk FMYqV9OvrGMtEiLw YJvbMV4UmA BasdJ3He8FULWjPf 7xhIWEs8uh WzAgLTIxMiAxMDE1 WAlfUZ2JWf PmG4j1DDlkO0BhK8 giXVPaK3Li rDGpLO7LWz2IYlOt BY7xni5DAI vqGDAsEfuUBuj7BF tiMY1UnBKo J6ZvemHrC5AyjLoi TB5IggXqFA jpXT8KPKGkNj7piH 9BcmlhbCxJ jAEnvNAlRE7rx4Qc qekfC8smQS 4ojVCgR41joO6sBR liAV9HySPa dENoYXIgMzAvTGFz dENoYXIgMj F1YKlfSA1OqCH7cM MgNTcgMCBS OIklIH4Nh524UOMx C8DriMTtsr B2JLZsWVKMVd1+DQ plbmRvYmoN XyXhKJCkx9UaUSp4 JC6CSTShOM pmVS4NW5OjGLO9R7 M5MfY1rMDl UD4vK5OoRjZcWT6u dGiaN3XxmN MLMUQLh31fe74ahb QiTR8Ta4cy yyHuYUUfX9Zretrf ZUdyYXkvV2 lkdGggMTYvSGVpZ2 p4FSE5W0wo cne9oKC3Jm9WwJf9 WIQlNz9TtH Z6MGIpG44iMA4QIi 4+DQpzdHJl PZ2KKvwQU7CcAqxJ BWAGggsTAI fRwNTAOH9N/+HiME AphWXX7IQx jQ8F2d4Ntm2JOH6r l5MnBKUrDQ plbmRvYmoNCjYxID Zkk8KjTPm6 ME0NNOQlWMyfWC2K X2QdJHQ8Y1 X0UsV4pZUiEN0yJ1 BeRkPtJV5t aWqyT6FnuADTEXAC r86jf97irc PlLU6Zh5bozeLrCB WoM4Fhfphg DCXZSz8GwJE2gBTy Dd3VNYndcA QgMFRuKIQpZ9GvTH x1Z9AijLRx hnKyH6ItOIFuCVVu m0IkJK0CCJ EkL85zp1cgMgEcYG ASOQ4XYf5T RmK7aqPioY6RBGLk YBiJwKNjg0 SFEn4bWBNPMODPWB sOIHOBwAJV DZZEiGQRO6SgFHUN LPLnwyEK20 EIXxtWxAUNEs2M27 DdD+QC3YzL NhCemhpa3PKWnbYK 4AKqWbDjBI kBP+gAAMbpYdENCm EwFVS4qrOu xX0GUB0ut4FkMQy6 PyGpLY9vyv 2YT93LWeMjYZ6sse 1HKxDmYX2r qg3ARXwQXkGyQ2Di h9BVUFEpVp 1IBHOkQNI2mD3SzU FvPMAlDD7a D1KTUV7JLABoYy0z tHD8FMCbDx AgNDggMCBSDQogIC GvI7SyCWQq BYSaZy0EEJTsAE2U PkV5MjJlJM INCiAgICAvRjMgNT lqICYLJz9Y FxCeL8sIKrqhZ6Zg WAsvI4boPi AgNjAgMCBSDQogIC VuR7daEiVf DhMzQSJKQt1RBtNf C2A9mKvQmH P9IHO4GK6VBuSEWa NsHIj7M3U9 sUXyG1Y5nRbZvUD7 VI3RAT6LKR JrZW4+SmRhA2DRAB mTNWP5DC4X jPZeRB9XuPTWQ9Se wUAeTy5qKI VsdGlwbHk+PiAvU1 NESUZGICA8 BY3SjZLkDZ7VjJYP I5TyjNTyDv 6mZWhaQfEsGP9hAD 4+FO7BKUFM TlZFUlQgPDwvVHlw IKRsQKx1J8 Z6KJQsL0PGM3T1G0 a4u3awli7+ XG8JIAOdP9CQLQPI TlQgPDwvVH gbFAWmWWh9E0E7GR WoJ4ABD8ty C4z6VF9+PiANCiAg ID4+DQo+Pg 6XYZ3js6TdYPo6Sp KdMH1prm8I CJlmZWRjS0UjGCZi QYrnP0NioX guAA6PEVeqDDgrEW 7OHQSaHMV6 YT4+RFccsAYtLI3M Cjw/eHBhY2 zjnAIvYJlgys7n25 u/IiQyWH1c SiANPX9xP6GysUi7 zaNFag4PC7 prYzlkJz8+DQogID m4PgoavZ7a xPMhiKx0uKX8rm9l Gm5nZSfrBJ hyzZ2qpqQ9kE6fMA UdDrE3gmN7 oCY1MD8wCe2PILFj PAljDWN4Tl TYKWsznS2tToDdZu 1jcVX1lHnv L9e5zw05Dk0ifnbm OKj4UZ4sCu 6uAc0aEVLox1wdhB O0NB5rIaj+ WJafUXKdAD6aIXC4 GtJZPz9IRW V3X9k4hV4gvXR3JU 4NCiAgICAg ICAgICAgICAgICAg ICAgICAgIC AgICAgICAgICAgIC AgICAgICAg ICAgICAgICAgICAg ICAgICAgIC AgICAgICAgICAgIC AgICAgICAg ICAgICAgICAgICAg ICAgICANCi AgICAgICAgICAgIC AgICAgICAg ICAgICAgICAgICAg ICAgICAgIC AgICAgICAgICAgIC AgICAgICAg ICAgICAgICAgICAg ICAgICAgIC AgICAgICAgICAgIC AgICAgICAg ICANCiAgICAgICAg ICAgICAgIC AgICAgICAgICAgIC AgICAgICAg ICAgICAgICAgICAg ICAgICAgIC AgICAgICAgICAgIC AgICAgICAg ICAgICAgICAgICAg ICAgICAgIC AgICAgICANCiAgIC AgICAgICAg ICAgICAgICAgICAg ICAgICAgIC AgICAgICAgICAgIC AgICAgICAg ICAgICAgICAgICAg ICAgICAgIC AgICAgICAgICAgIC AgICAgICAg ICAgICAgICAgICAN CiAgICAgIC AgICAgICAgICAgIC AgICAgICAg ICAgICAgICAgICAg ICAgICAgIC AgICAgICAgICAgIC AgICAgICAg ICAgICAgICAgICAg ICAgICAgIC AgICAgICAgICAgIC AgICANCiAg ICAgICAgICAgICAg ICAgICAgIC AgICAgICAgICAgIC AgICAgICAg ICAgICAgICAgICAg ICAgICAgIC AgICAgICAgICAgIC AgICAgICAg ICAgICAgICAgICAg ICAgICAgIC ANCiAgICAgICAgIC AgICAgICAg ICAgICAgICAgICAg ICAgICAgIC AgICAgICAgICAgIC AgICAgICAg ICAgICAgICAgICAg ICAgICAgIC AgICAgICAgICAgIC AgICAgICAg ICAgICANCiAgICAg ICAgICAgIC AgICAgICAgICAgIC AgICAgICAg ICAgICAgICAgICAg ICAgICAgIC AgICAgICAgICAgIC AgICAgICAg ICAgICAgICAgICAg ICAgICAgIC AgICAgICAgICANCi AgICAgICAg ICAgICAgICAgICAg ICAgICAgIC AgICAgICAgICAgIC AgICAgICAg ICAgICAgICAgICAg ICAgICAgIC AgICAgICAgICAgIC AgICAgICAg ICAgICAgICAgICAg ICANCiAgIC AgICAgICAgICAgIC AgICAgICAg ICAgICAgICAgICAg ICAgICAgIC AgICAgICAgICAgIC AgICAgICAg ICAgICAgICAgICAg ICAgICAgIC AgICAgICAgICAgIC AgICAgICAN Cjw/eZCfD1xdfGTw upP2M6tfPz 6ACx2ZOI9xy4UvRB FtDQplbmRv YmoNCjMgMCBvYmoN Jyb9PHowGU 0XiZAoQ7FvG2BaPD rzJW5BOFBt YUJveCBbMCAwIDYx YpN3RGUvBZ voJB5ElXPcOHjxYJ AwIFIgNyAw IFIgOSAwIFIgMTEg MCBSIDEzID AgUiAxNSAwIFIgMT cgMCBSIDE5 IDAgUiAyMSAwIFIg MjMgMCBSID D7BIVdHwCvGqHaEN IgMjkgMCBS IDMxIDAgUiAzMyAw IFIgMzUgMC RSKLA4BEQoNlIsHY AwIFIgNDEg MCBSIDQzIDAgUiA0 NSAwIFIgXQ 2TDJQoS714fcYpHk ENCj4+DQpl erExPvuVZlO7EPSp z2SbTYo6HU 4RLRPuYphkr8CwVw UgMCBSDQog IT4CWJP0WAtfOLOk Rr0DKEQrU5 57uzEmNm3CTr9LOd VfEC5anj9P NjUgMCBvYmoNCjw8 XYpoPC2JnS OmZXqEqI5oGXE3EV 0KICAvRGVz nQSoIWKbSBRUNP8B FIvrCPG5LG kgbnVsbCBdDQogIC 9QYXJlbnQg VmIhPLIFMCzxXB6B YMp8MZA2SO ByBh3ZQx9RIjIzNI 9ecm2YNzKo CVIdOhuDEzw0MZrl JR5SeIUvGC lTCEEbB0T8yQ2zhs eBInAfJ6Je n6LzTqY7XBArZzBo WFlaIDAgMj l8CP60dCggVB6VLH TiJWJfNY43 VXP0JYClTx4SFDKv DOAirwY8GZ IjSQKWZgCwR26nrM QgNjcgMCBS DQo+Ow7RPB0wr8Tl EYo6TtCoVG 8qwm2UNEgMXrUjW8 RpdGxlKEhp r8RqjgwiLBmhEO9B MFR1ZXbkII IlGRMWOQ9ICLldGA I0CyOywuNd fIUfPCbkCJ0OOUCx bnQgNjQgMC NTYDvkPW2OzaL9HT H3ADPkMk4O JVCwBrU7xGW9JKUk IFINCj4+DQ kdryOuUicZUlQ0SH Uec0NlVOb7 OI2KWORdDXv7dICj AIS3wS8oPX Q2oE8ooazmQXvuAD 8HGQG1MUit GSUrAXLHEY1BICaz KSC2Aoojum QkaPCyTBxaDW7PTV JlbnQgNjQg WMLCQQrzHQ7MfrE0 NTO7YNSuVd 0VTKLzFaO0ySF1YG AwIFINCj4+ DQplbmRvYmoNCjY5 XJImt3GkNE s1IY5MVAOvEWd7zJ UoTWVkaWNh jUUOdLI6k0Y9TN4G ICAvRGVzdC BbIDExIDAgUiAvWF laIDAgMzU3 DM22vQtbXN9XKHCm ROVwOB39AE K1SEEkYk7RVTNuNT RhmxM6HFOa VGUDPhEqS13xzZZd NzAgMCBSDQ o+Kh8SBR0sw2UkPP s7XSDsLT2p tn6UFFfJPbAwX4Ee dGxlKEZhbW pexACUjNX7y5Z4FA 0KICAvRGVz dCBbIDExIDAgUiAv WFlaIDAgMj CbJH77cWnxIZ1WWC GeGTZjNJ78 CUO2BKJwXi5XSZIj ZIIkmqB9WJ AwIFINCj4+DQplbm RvYmoNCjcx FWAai9RbCHk9UM2R ICAvVHlwZS 9SGKUazB3jVVwkON 7FBqG2TaGc YACEMzFmN38ktRPq PTv9X0XlOa VkZGVkRmlsZXMgPD wvTmFtZXMg WyBdDQogID4+ID4+ ULovDX1ZQC wvcxFnAANyQh6WRL YiAAYkYD9f YLNjVNPzI0A0zYio ZXMNCiAgL0 xujzxtRL4nYYKcO6 91dGxpbmVz BTS2NUDqVz4XBZKe FLD2XHNjaQ EgNjMgMCBSDQogIC 2YdOKkMUT9 iR8vZGhdBVLxOOMn R0kVAiWivC ihJE62gOcrvcLxaN BdDQo+Pg0K YX7jo0EuTUw7kxAj DQowIDcyDQ owMDAwMDAwMDAwID O8KKP1OKDP CjAwMDAwMDAwMTcg MDAwMDAgbg 6AQGSeFPX2TiT8Hg AwMDAwMCBu SPtkHAHiBRq5XUG6 IDAwMDAwIG 4NCjAwMDAwMDAxNT cgMDAwMDAg vl4UUXOgKISeYBBk MSAwMDAwMC InDNgnNVKsZCL5FM B2BCKhYXVh NK2YEfPkCQAyWSi9 MTQgMDAwMD Vnmm1FSWWgSRQaZF AxOCAwMDAw MCBuDQowMDAwMDA5 NDMwIDAwMD EsOD4ORzApFCNxAZ o7EqSmZYMy OVEzdg0LMQItOKUk LqE9NEAfEA AwMCBuDQowMDAwMD EyODgwIDAw GERdOU0DNaIjIDFm EUO8UXMxIK PrEPHegi1AVBGxSS AxNTcxNyAw MDAwMCBuDQowMDAw CDX0WuYgMX HrUKCmUU9FJlHlZY RzQHl0PvPh COMaPDKggp7WZBTj MDAyMDgwMi AwMDAwMCBuDQowMD AwMDIxMDA4 DCGoASDgJV7MIwWa BNVgUmG0Ze XvOEFiGOKtng0DIC AwMDAyMzkz OCAwMDAwMCBuDQow HHAzVTL5XX vfXJRnPTAbYS9BAd AwMDAwMjY2 APlmSGQxQTTzie2O MDAwMDAyOT S1SPZkFEEtNFGqTU owMDAwMDI5 CmMlQRHxHFSpBU5I CjAwMDAwMz O3DQXrDSBmALEdpm 0KMDAwMDAz MjkxMCAwMDAwMCBu DQowMDAwMD Q9KKZ2JQBmNDSeUG 4NCjAwMDAw MzYwNDQgMDAwMDAg mp9OAIEtXU AzOTQxNCAwMDAwMC BuDQowMDAw RYK5MzZoXMUnTGXj WI2HPdJzWQ AwNDIyNzMgMDAwMD Fsyb7RXXBn UVB3WfS0MTScACZa MCBuDQowMD PkPKB5HiIkTUTaUV WcYZ8PCcBs MWDrFPE3NXJdGIDa SVWemw4HEV HrKCV1SKH9GVGwNQ AwMCBuDQow KYPcBBA0UyY7DCMj SGOuAJ0WAk AwMDAwNTEyMTcgMD AjMLLyop5T ZEFfOCQ0TXKoInVe MDAwMCBuDQ ipWXGuSLKsKDD3JW EgKLBgRK8H CjAwMDAwNTQwNTAg MDAwMDAgbg 4NEWRxYET4IuPqRF AwMDAwMCBu SUswVCOnZHD6RNU1 IDAwMDAwIG 4NCjAwMDAwNTgyMD ggMDAwMDAg rw8CHAHiVMW6XYDq NCAwMDAwMC KxDUikEHNaPVH4Ru QyIDAwMDAw KZ0YHpAwAGOgCMh7 NDggMDAwMD Mnqm8VNAYaZNZ8JZ UwNyAwMDAw MCBuDQowMDAwMDYw JrP7KBTrAK KqMS1UWlRjAQYzDv I6COcmMWBo GPLxvn8GVTLbUVZ0 QZd1SsNlHC AwMCBuDQowMDAwMD MnZJY5TITi DNZwEJ6YJpPxKIKs NjIyMzcgMD IuRQZhbu1ZVGGtZU I7ZyCaWuBu MDAwMCBuDQowMDAw MDczOTQwID XlMEWtFR7OGePlWS AwNzQxNDkg URBzXTLaru8TEOZt VOH1YUR6YU AwMDAwMCBuDQowMD YfTQc2TKI4 PFNxFIJjFY0YCvLh WZAnHbW9Nd ovPAKyYEExrl4TKD UiBDZ8HGQ7 NiAwMDAwMCBuDQow YTHwAHu0XS H2YXGoTOOaPG7AZu AwMDAwNzYw XmWlVNDnQJZktz0C AXHtELT0St G9BOKdCTEhVNWkPG owMDAwMDc2 OWF9JFCfZXAmYL0G CjAwMDAwNz gzODUgMDAwMDAgbg 9TIROeEKJ8 GXI3WuOqZMOnJYVj DQowMDAwMD o6TZwaSNOrNLMgMF 4NCjAwMDAw Qir7ENSfKBIfHBRt zy9YCRKtNT X4EFthQNPhMBSgBZ BuDQowMDAw IGn6EWjrLRLcLVBk JY0DWbXdZO AwNzkxMTIgMDAwMD Nwka7NIHYl GTW8BVFtXGJhPRVm ITBcUWd8uo SotZKsIPl5WT1WG2 NpemUgNzIN Sf7Ac177GVuuVAAh Lw2CS6coTe 0iFNXeTMRQKc4UVE g4DwB1NMXv MERiFkX3BzS0TRVv NYV1QCXwT4 PpQlw9DfN+IDxjMj H9N7HlO6K4 MjQyNDgxYTMwNjQ1 OIIhGFR8Ce n9WX6mMYOSXa4+DQ pzdGFydHhy WPKXZez7VZg7JEjl BXRMWz9O ID Date Data Source [id number] 02/26/2020 01:41:10 PM EDT [facility] Name Value Range Interpretation Description Data Sup porting Document(s) Code Source(s) MODEL OB The FYHVQx8tCr VPNvMf10/[facility] [place] M[facility]9FaENms YJn0AVcoBPNkT8Jr [facility] AUW9gU3nP XR2PHwNJoTgMcPkXp Health F0YCE3CEN5 UII8CiWrWdrrLG0w ZHW8KEnOIi WfFgGvKnX9ZAC6AH S1AXT8WaVh BschC6DrFSBahssF uVugGAA8w2 [id number] Jyg39bKBzn ID4+DQplbmRvYmoN CjQgMCBvYm oNCiAgPDwvRmlsdG OfDW8CxWM9 FPTqN57hWHOhWPYr C8WzBDGtEt c+Tx7VVDHhqRJkIK 3AVyiS0I0f a6c4Eq9bvh4TnZgF gPoZBhAB5L 3frvUgdNixBWF32P rJef62UreQ oa7awb3OWQGWQuAT IqCF9ecITg R58cgVH7GE1kcQ// ba3OpTJBUG /Nv+keNjrK2Bw/9E zrpstH2h+9 R8BJhMWvmU4C55z9 g+veFwTAa/ BISygIyv+JfXhKUx 5HG2FMadY+ OfyPifhFJxGxdvoF hIMVAiacRE QRcPBlNjCspd8Qiu kubgTvjdHd MRe2Q0aeDjpzAkHP NmG2/8BV46 gUaWUtzs+vPVh08Q g42D8pm40o GQYKhZV9TyNDgp7d ElhUAJLytd HBMxTiSKA9pJN0rF 1+LwlL0x3l +ypv1gAUlAO8/JYb Mg40fosJUm NVbeqWxlEqyRFONY iu+h+EbCnI R3FYfmbzOSqITNTw GFIn2O+Nrh sJR034TA+ttDVVLR 28NVwv0BZ0 ToGddaepkTJVeklz DCKx25xioU +fcD/IX5yQM4BtjA 83q+JrPJun zA1rGZY6BaXZQg3b LyfhTkLLA+ QzucxMq3LS8Z+QPy vVEcBtv7PN g6fWAlNPQRLnMKXl Ua3PeGOZi0 GnyS1pRuNVYbpnGt zxF/37JQjP s0sFEoARRvorgsTE OnM8PvMXiK ih1vVyYEvJ6UA2+C YSVLJGT8YX 0LID0R3u1/YbmThU pbdJF3gZPK 5B4S0S4CiLb4s0Wx SHDMNvBGUd AMFVKCvODe0TcG/y PrqG5lVqhm KD3e6uL07MAZpNdi EQKXghl81s EHm9Ttnfz4g+1kfV POp/P1I2I8 Bv02xeBwzi8rChsK Wv5NQcozJq pERdVrH6qeinAIJ8 /IkV1f3ATW UyQ1rTQpZy7oXUCv 1jcFJmTKhs LUJAPGJ9Ypftr9XG tvlWaN0GS6 nyZDSkPaBzNokyf1 mq2mtJuvTE /wQy/NN72Z7mAPos SQkWRdva7Z yh3vzTj2Xs00k4qW O1CZb5jFPg jyP4TZ0beSsOFqnf /aUiKpi6Sx 65z1tbVy1Xa2EWqz md2j7JKiK7 FATulgciU8udGNZu 3I+PHWAxdq DbsmQRE4UHAWjCSk trbleOzl98 f4Ru2F1249rP1CCM JOxsCo7eiR FAZ8vBe9XGZVdroV fr4rHTsz9+ 6J0NbakVvwaC+0cy Jmm7rR10F1 vHjgRF+VSPs/q+QZ jywKwmZmfl +Me3kNL6vMPjkriU 0vti5/FSpl Ow6Mpqyam7K9u55n 6uuiWJJzPl 0jBsiisLPhmXDzjM 8llrPxaak3 N6QtoqAGzogEidMA YIXkfFJuNW 9dg/ssiznLwo+2Fm K+FFO2mlmh 0+CqIFdo+vMsVPrT ZgWArZ+mNF IGQvEXvgEWpspAHK XbKzzDD2dn ZKRegNQi6QTQ2JtU 0zLgluL2zU oDycL97VPW9Kp7We GPctqFMFzN rsYawzINaepoO4Ap 4EbAkijuIn lkhO9QNsgtxftzXy 7fr64nNPEC Z1P2fQEWFmSiDRiN yp9hDtM66p zlgfzg/NwQCePzJm eOCLKu5Q6J rWDLkK1gydhs43xJ AAI3HuVp9y 5FGpEyjECswa47ta 7iqdr63idA 9d5WJwcPjGJF407m I0mUb4lhAk GjmrkeGt2IpsxTDz p1utyeqMl9 Nd+S495fg5a2K4DY VFRcHLOwOY m9P8CDRRkpjwHAEC FOy9uVac4A 3RKUkOQNn+aG7wSo eCGvozM9ma apyWgTqQi5jk8z6D 5MM2SdufwL Hxz7HjK0xuOPlXV3 8f1bzle2ca jXNZBHaLWy1bp1TF pjE8GWtv2a qSA4LIKgT7FLxWPA CKZ7oCu/1G QBkz0T9T8CoLPsN8 s2ZB9lWJLk AqxM7pkLCjpspDec LGyJf5hU7e UVaPAcGFxnn1/hpV Q4lYoHnwGo 6kpAzEfny7SaHxal 9IJWcei29I USraJzkgosHGsYbL ypmYZ1JPUH 8/Ajn4zfDvIG1vUn gCu1PEf6IE KhZ1LB7dB0cLICZl Xqrg7TslSB vswlldppl3b7tuOG 8z30mipqJU xcsQ4zqdKh2JNubX zNQk9CEH3Q VtTCWToh4qml41Es 0Lq33l7evN ItIQAiSUYDbKY1A4 l+0Vbl5TXy CzcXeq2pBQUV5GM3 kFWFMd6YIY FiQq7pAFG7I/Lcj+ pId806doEu 5uWrH0+db8Jx2EKk GVrvoXdwpL rrxbV+bw4mcECe7F Fj7JBGoh/l kKXWWsZYPqBPVZTm DOExlMDUHN C9R8dSMQzqeY/w16 c2mopJvTeb GBhJY/EQjTYSljMk IxZGorGWZb SZ8RU1Wb7Z0N0uRZ EX89zRGs1C ecucPbGG7fRrT37I dI/o0e08x3 TttHW5yGlCRG0uXW CXMRhvG5zX Wor+UtgciF32k29n uthLWKc4tY VFkDcL4s7VoO7Hhz 2GqA7lGu/Y 3LWWNsj6Ca8Z5vuP aas90fl3lg lXH9A0I2Oy5fhO8O GP6mG+viGU iCjHYw+xxZEcXJ/J iV8Jrd5O6Q pMq+DmyzudU89gZ5 6A01Aqh54+ RYU3yEfOCcVR4BRM 90eatfOGdT e5ecjayY7o9JjKU8 db1mj2UrSN OOdeq9+xOnuQc68q z+agwzI2SZ Ge4PYb3ZsXHge1/L fhg1eD86kt lcrGPAeyBU2So96z Hk6Ft6mkTE HsX7tnf+W6bxDpeR r2wgGqx/0X l+cnGJYVpdUxtPac cHbXZK7L8b 4hNb9NqdTTNsAtIc 2u+JKFiIm+ KB3Z3kDXCwyY5tRr HvFtTiMQCs hed2oLNr9CZq829k gGd8LgX0uZ bFqRUdklpbAX8Tqx QlxwUsv4ya kCeL0rYIXPmnuUJu lw0nxrVF3i CqGRkLc8Ihg0iiaX FM1nHiJBnX 7j2iI9UykCBMfxxG 4FO3V7VxSa 3B00AcowewWm9H+8 w+u8g1gRo1 DkbhfwnG1Lq2p8d0 m09PWmjzan RypzLsP0KkCQfMJa gdUzemnWkL dw2FEcr23yglH0Rq 7swyKztmJO F6y13M+bRghqniK5 jr+44jsiUR LFkJswDa9AZKuoNs ki42gDrv0Q uxFdn8tD0CHTLTOu +z+ejn5Se4 pNGYeFLhwvr8Xxtu qBOTt/G2vr K49QXIDn994lPSAm uv0wM3rAHW 3SjQsd65UYUg5T0k A2oPMLkV// EM+0HF3+BZ7r5yWz shkkr4IvDC OxOP/keN6KneJfwK IS3IOzswJB UAJXFsWsJnUxFds9 2CA42Z48si +HzcvZfCpeBvGRp0 Wc2mGOH9/G wTWO4WI8OZ2s1Irs 55Ggevixar uFRLHlGArMy0BqNs OmwtqPA/E7 ZqOKGXqA3Ihx0vJp clQtb/mk8/ SDlJ3XC7QEZ/BkfD SP/cenDar4 qu5CI8OMu0DgN3sw Sk06Jc2wyc 4DQQ0Wg3J+oq6PWL 1+yHkeUU9j 438MT/Qm1RogG+I9 Di7DpmXRcc c4ISz0qaH0Np5qup 3DMwL3xc9V NNFd6EtQBjY3gtsi ge7NO2TqGu CB5g3uwv0ujv7DC7 6ZoOE+84Wj ucjmar5JMdgjbk+Q 54UwAY3ywX b/p4KKkipgGS99m1 dm/kSW8Zjl RUuuwX8vDGCIwXhB ifUy7nun27 NVofEu9UrWgZfT4O SgFiqqiTyM KLi5qq7CxzCIVsrG 9tIteK3pc1 wt1Hwqudy0XbFKAc FolbPiD/xc AOooUG0Z+Llg+lWu yi3ATGkI3U 8ZvEaXwOI7nQw79a lvkG9rDD4Z mhcbmnn5E1mnpVl/ /OTg+DU5PL +4QOyC6+wElx7Y09 alWE8SEWox FtUDucOdEzVsuTrO +3g+/jg6eU 0+js7e46/LtBnrV6 TebjB5fiwn 4wsFagkOu8kvcwvW +OTaxndBTk yQs7zzG0llbE6jgP suCzoup2ak Jcl7jRC/FoWHC2EF oNxQuNS/0o Da0YU6YJ+p6JkhGv Dz6233BnWa J2yvSSnoTiaaAatw dDmRh8T2II 40f2pD0DgjOKQap1 jBiy1D/5JE xyHH8DhB8T2uGQaT n8YM/UuSsi ZonxmCk1won1fLR1 b+BBR64RZ0 W7hb31OveZqCyOfA 5FoxYv4/xC Gh+K/mkEbwyCHKmO KOg5kj2GM6 h6sj5SDGzatJsVnp 4JaBvcmn59 CUL6/madIVSCNtNY fRtgCbdVIW ijNZb54KfdPFpfSv VHDWFK1569 7MKQyvyFupp5KiU/ fdgJpPDUmO j6zgvfd9J4FAOOEq 7T25qEHjzS nmZElUm4omo6IIH2 zLnn4V1MBj WXAq2T9/O/W7go3w N+qITEmoPO mXhZsXGVJDuxBQOV 1xHsu64oMH guvgPifP6IE5SLGS 4UL2343mbQ AhUYsaD6GIByR48s 8JS+C1+l3B xfF7owWPoeIzM5b9 R8Xt338MxP yiMxtJuFoXB4Z95s dSB9wm2w8O WzRwtp63jNFGzNKD dK5uMK8o+9 0FSAgrajqeopWg8C bjcXnSLwsL 7WFsaBcCJsfrxEoB TzvgSXTf+2 GljtrUpehYKP7E72 2PWzt3A+yK 9VhXkLc256njHEI7 Au6t8Gsy2n E8Kk/1TtTsSTzn11 8IqByvEisF KC8TJ3E941NHN5Eh pqCDGR5F98 8EAl5Jiz/OIANoEt 76slv2Quv6 P0EAmflhs4WydZ8F Ovrgc3MmPJ gcrxIrBTztgCfRfe +CqRYwm6hl eMTdWDl1VbsPuK3t pcYPmDKw88 5IODPb/TuDjcnqHc ni0mNmTz4+ VCbvtDcCKsdnxpkr onbAk+i+98 XBOdgqsNeDQYvR5r htIVypU7nU 6WdBTAKtdknFxnd8 mP5oaYENtq A3MT70v3ODhuuA4r LKeiN3xSQQ 2x70Nm68FlaX2o84 7woygCfRfe +DhRXuDLsi/SIDaB Pu660OLJQj 5a5GIybjxoaQjdU+ Wbj5+cHM0C 0JPV2OuXXYrkjWb+ i+98LCEnel nJxAISkC3ngxXEie B2rA3UhCWL ZlclkDocG5iJ5BoE RQnkB2GR11 j1XHc49K8PDY6LtR YItcnNx6dg 57LywscVfadwUZwJ PovvfCwhJ3 wc5RskEYDUbbym7d SWKI8exSB0 RKG94Q1Hd/LNz8DG mrXA9EFOSv HMbyAJQ3qOl11/tg Gf31GC9O3Y C6xPe+NjgV2XI1bb FIGkEUsM52 IWQNvtK/Q/CYJN9S PjJr+mblRj 8OVT1SyeN3LeKXds MPmRPf/36Y ErGh2n5BIyL59b2m h501/gy9Pn 5yZkiG2/+eCFonoD LpFibD3mqb ZRHY3h8Zkl+gR8ZD H2LQsJLOkf HZbV4tQM6/PXG0wl /q0tL9TDnk +39JUkb1BZl0+sYH Uii+/31RtE qANrBDCAHS7+YAXA 71zdHy/4WR mvoT5N/AaVOspCTN nTNf403w/d 25KzRc4dEf1wschT Gd/370e+No oE6u47GKRNSWF3PF hj6++qJolY UGLT8LkFEJFU+Bernie ZY+Hutchinson+gD+ /C/Fnbr7SHtfebVl tNLrIQ1WNy ElLC4gdz4IUPNmSV 3cay7QCZH1 WD9OKDZmIC3YsOKg O3XnJ4NUHm LyVPAfTEIqBI66NS MgMCBSDQog QYXwQ5Cur671obVj cyAyIDAgUg 7ZZRZnBQ6ILVEnMA JveCBbMCAw UPIeOnY3JLIyQBvi VSAoI4Sxos RlbnRzIDQgMCBSDQ rxUIUzS8hn v9QaIQn1SI3KLC3S ckVeu7Jsfr YfM1hpK0SECX5GJJ KrC3OEU4Xi T7yoCnKsn3HtU4vu ApCvj7YePt 9LIwJsEo5NZkKcKK 5zfm3TBvZm HQ0fkl8AXCC4KD5C yKn8UNNnN4 OiRJKkNDBiq8CqRC 9OJZ3rpYpn YiK2Ms1+DQogIHN0 ynUgeW3LHH QmZCgq4dfF/b7A/g d+TIEkFvWk ilGRzq3OxWqYhmaZ 0joYzLGf8u cYOhYWzh1azmJlCy vXjr6bL95P Y58Bfol76RVVglPV hFdnJ2SwvT WtywwX7bTWqLNZh4 /+E9G7RYHd W/b7l1E1kRLGk/gx cfEqi63Jr1 ZSUd88ha6bKPaA/x 7W177y5Ktj xKsCaym0wDn3cFDa fabRlOa//o o+qN2a4BHKcHQHq0 8OXgb/NEaD mkssUnCxZ2r1Z6M5 0REJHTSeHo w/oPH/DArEN4z76o 0qTEuaiJue eQ32J8NfYSZwR366 0oq1J/VrC9 3PdcV9EH/arZnuJ+ dmsPLBc/3W PAkOY1T25fWFyjCS SFaBfBZunN DQaZDHSpQZC12T9v s2HuEieqN9 ZqryRmISzMsM25eu knJeojlN4z 7drm6iafEetna+0b s3qyhYCEfn bGvPA5NhufWS0sOh tW5+FDT7Wn 6ZO5obnGO0afBOTH 838c+Yhz2N ONXbeyPM+uonmVLO g8WIgoxPE8 lHJ5fx0Hq5EpmG2X 6PhepP/iUG VvjjQM+YH9mj16V5 HhdxiaZRST 2fw8ILQ1jwuN1BZE 9iPGzWD5in pX/kUqexRxwxPLOH mE1Ry4ej5y 6EFZfGTK2C3x2FGI OWjagitgM3 nGGSKpsTDiN6PptH RRcGBLdgp4 dVUVHfOZ7k45+GkN /hFVuhFZqK 61HSQE51f/Xclydn Z2kI8NooH0 Bp79BMyw9JdOhgbu QSTyOUPaJo +kC0lC9s2zkaZT5I MF5eavT0FW prprh1gpSXQBAGKQ 2mK76fQy4E IF98AuewmiyZ59n2 Zc5kDm8eKx nUPN4NMNAWC90NaZ 4p2AsEQz2Y DRUpwLwPh+mMskny 9nSP1XKKNn U++PVz2mVAsHKVVv 2YBCuSMrAt javZOlGnyRKt1zbg gmvRZe9pcp RJP5GoWeu1QlYMuc JwHqcsVYt4 ferV5NKXeXBHGp+T K8vAzgcP1c 0Qo6i4NxdCRKFcF5 7AyVuZJdns Qp9K5NZY0EkomL8e ylvUhnQ9W0 9xkmTzyHyjPNYXrF Ffrb1XzK/4 fPudNaxkIxOxrGZD 3gHoGIpvj1 AIMUs56UXj4IaoOm s7GspaLZLN bWA9zJQBuDtOx/BU /ldU/hGnxS T7EJ0aQzDTGrUycy P0/JeQaF4n VbIe5Llr2fiB+U5f oMl9KLvNbo pCKHrsgJoy7oCpyj 1mFf75NAqh 6r9SAICYmdJ0EbTz NOgUTSlTmZ hu/e0yLO7CDq/KM8 14Tj3Yufx6 DamXZbkW0EWBrcGY Ai1FebK6PI WkviDLso2c/K2a1i f6bNGQvh0K Zueqgsy8M8O4uK3y jbTDWg0o3e 041nTNi8glHDI2Dk r9gha02haT 9Zy1ipuDOXWt6RRB megkbEmRG5 wkFmzE8c1xLrcTe8 M3zqBETUNV L5SObm0aMrzdpxm1 tkgPo19qYI aoZC9oRLy3vdTClj gR2bMMc35u 7lS/qtcrZSHN+1uP 9yaqHgVvi9 8q0D6Mmw+mrLf3/k NadpcDaM68 KJ0Cr+4L5aBP1jJl Mlp73nD9d8 Zu9l/Yn8FLkTS07t N+7LvrwYP3 5kV2TjbqFmYuB63s q+Nk7WF/HF Js3q7JSzglC6GmqK LidR3A2qbu SAbUBdYPv0zEyW2z Bxr33hjSKn LwIlOydhanUc9Uzk OfDU1+aDSK 9Oq0KTx1WkyACgWr AuMqdMFiYA 5WBwfoMA2nK1A8uo x2x9ZJqytu MHrQUp0O9OSlU2DY MdeuKf58XK fze2r1Z4T9R9fGdd YuYmHtF5PW hyQnmjKLFLnA40p4 ruJPRPTc4o ia/RWnFLHUqNkro4 uGCzhA1WtR Mc3ldrtcZOHqUmLd GGzOvC09vr I6iZJJ/NyaNUX6U1 oon0Mjp+Ph 0qH7QzAfJ1YZxQTU GruJw3r/cisco lfcVpPomfznIYWlp xaAQynEgGA U+S2JOf1DA1DdoS9 uDw6p+h8MY /yzBXX28RS8zEYek ln7iPsJklh nZ3Iy8JK0yoDjJSk 31x6Kr38JU 2gtNKLn8LPmZWOja SAgLMI0TSc HXulR9dZatZtofxx IHdY1KaGDT P4qMKwVSF5HDeoMQ zTCII+V+xX 2BexbIrIMcQyGU4z BBMTmbJNjN 4FEpVNJPPWm5virk WmAYhtcYAR faZRiSbZUbVFEKez ayJMLF39ea l8q9XebA0v+WjWyg Tw1GwhejQj uVR+o13JJyf+fRcD +Mc+diSAXX 5cW9EoLsT4iu8JPF iEkLoPbLJJ DO/VjjDxuSxfnpyy cgRv7Ut6Oa By6OPqyFQ+bkO4ze Ght0l3n3iy mfMHwbgXd6kLWYIK 6giuM/YmhI 0QnYXH0xOMH0E7ED tZXgAViqyr 5dX4zQxYTaYJ+DHe 1BGAk7LHXS nZsgYzby3nrq9wCr BHAHnRl83L c+NxkBNR/KiPYdWH JOXhJHFYr7 9R8Jib9fS8z/a2uo oad508JBJd dsufI0Fj3z7kcANx w75gmqBsmZ tVgv05FO9og06kCe RdBvAIZJp4 vHhQQPsUV3J5/4ub 42uM8HPQ5L G0Ub0e4gpdsLyNTV GEpDc2Wa0S pGRHnyy9X1NFo+PZ Qe5e4rhwXA HAKxBYuQQZ7zavn9 44S8TrlJKZ MT4lsh9sTh0D71cy x2/nal8DJ/ zrcchoD2c4Eo7ctF O8mbl+cgP2 0t320+Ypycj4kIEn 5xuAeqn32Y yz/Ugo1SRJyx7zFX bfX10NxLCw vhbm5CG+CnXxqgWA GkC1J2jJw6 kWT98+ousxRvcHGB +cKkYs9tYf s1pRSX2rVoIiY3Y+ U6XnFoZET6 gWk77YQ6XAasxYXi 53hF1dtLvP /aVXEwNOhOUk1Eop mrGd2yvBog wM7KleDbuUm18vpt 0eUNmZH7fm sdGjKtWfgvF7qN8t KCZ6HU7BH8 nQb+11m/W94ZlSq4 qh59b6WV5Z HCMJHJpBf8FuoQTt ke6g51SAfs g5ulixSkFEJfLrlx 0iplk+jxLT 1AzP0QsRS1ALX9Vq P+QI9NV2fA Rt7flL09K7Tv/O82 uFCuA104tQ EgAsAF+v136Z1MKl TrZd+t607R b/J8ufYHbtfdGzkp LtYgwzk50B jQTdGXCuOJzXP/cw 559tLJul7r Herber+6E7IpzlkbY 7P54PHYEon o27mucBWOS1284Ux ibPqDgOZy3 JDN4ZxVE9zZlgEB8 M5v7IKRI1B 8T+fu3LnmWnOTWHz Y8tAV3bNDo SwPNyCcQsuH/mYqP MCU3E3TDST npBLQu5krUJMG/w3 +IaHdjP6QW XAy5NixTg4M7fRKf BTRIKJLoQD U/zXKQIHpvhvUgQO TQVoUgQOTq KVM6pU0RIjsfzt8E VgYIr/JkXA wBT/bYqAoakAbYqs DfejWa0+qu gQgnPDr8CGzH7RDD yuPgBYWTBo LmA4BbvCmpsmCKup 7SYCkAA3k2 7prCxQOgVcEywYno bc5CkNhNTj dHyFzsoCpVPANcGC 7HfRPs5nZO Q0hzFisWB5xldCFj lXBwuHpyG0 kFNUNDv4jTfsy6GZ 6RRwTbBgeB lVRbfkqK6xQ3/zwQ YjQ8oVYJdG C3OOXJ/UBiRYECpg lQEFRngwPC +FAQbWMGdtITKlm+ xVq3Z9QZmp CocZItlnaN9XnaON ezEgDmifKc H1BKcHW8NdwkBRQ0 HJorsW3FnJ 3fEq8BUKMdYQZVOU NAWBjmwHci A9GHNgAK4beyPVqf C5ak1wlDrE IfPWv24QNROfjrD/ xxIoYJUBqI 9bGnkFsMcIZm5VCo UN6rjR3t2a LJKKcpdDdoX7IMEz T71HFOmhWW nvD8Bmze+HFbDKgN NRLSc8sTD8 EYAZdGblZnuUxr2G cVsHNAh1P0 vYvWoD9aIVOJ0ftV EWiY4RUY7L 7ClglQGpjSIyaYCB wBgPIqcp2P q6rXPjObu8XGHOiC omDuyPlk6T jYocNtoIqSBblSt+ VR6kM0Zjob LjFqeVfYaQJs7RNg QqVMtJ+0Gj yrSNbk3BglHkdEik DMru1UetoC VdEg1pa0MUYzdPM2 DpDRl4SOXv rfMHH6LIsUY7UxV2 lXDMOuPn93 ZsnV1QFZrZmqVDfC kXPduF8amo 2ukkDG5VzeJJKNqm NJlMCPr2Z8 dXjGvL5uKGWRHjU0 uBXMk+k2D7 AoQwe789NjrJFhFv 5a9g7KDmDY qjq+jZrAH7v0i5RF FvS9tY7Jtl NnGLLGJ6klGrRCOp I5uF0TsaZm XEy9S3zjBfFArslH JD3PjO12fy 6/1CDGlHta0VZY5c m6TaYGWdLH plbmRvYmoNCjcgMC BvYmoNCiAg PDwNCiAgICAvVHlw GH7VBZmoFH qeBUUwI0KvjjGdoV TdMEIgHp5H DGVrCI8OTCLdwXCx ZXMgMiAwIF INCiAgICAvTWVkaW XLw3ebLbPt RKY5BCElGizzLE3M YORzUC0Nb7 31TF10ycM6CPNyLb 7AWGNaQL2O vb02zKA1YYKtJtCc VHJhbnNwYX KnrbX0EG5IKaZoIR P5wKDcHfhH KE6JBIUhkMHdMF4A IGZhbHNlID 4+DQogID4+DQplbm RvYmoNCjgg MCBvYmoNCiAgPDwv RmlsdGVyIC 4CjJC2HEFgL65hWU BaWUAnD1Il IDEzMjM+Sk6NNDRu bBBlKJ1BCw pSmGmhrkV4XW4c8V /gYxbYtXgT HStSYwpxqsb4tx6V Onl1yDcj2o hlc2UBHW8wdhYl6n G8WHvY+EGa SDpneDgckkOEmr+/ UUfGGGNU/5 p2KgL9PJRWX3TTq7 mzP1wffe69 uo+0SBWAG9YEinwW meyzVa9kK/ R7lM6//RGlL9/y6D X5uLdmfwZf LXpP01J0t6O6J+Xl p0+o9/nIJ6 l7jdPp39uQwQmflK s1tgzfKRSn /wFGAJFzW9qpJB4v pO9Q+icipP 5Mm4++mTcmtiYyZm ytM8+a+V8u /J7dTaryKllf/WdP Po7/cKs/Y+ /VmL5WZgOq/PDYfz JbLTzS9Fn0 1LNejKWSTSSnDQzb 4DM7hwqIgZ yd1qwzemwGVKzMnP sInNMEfVBY 7AmVXa1zo3hRSda0 OCu3hscVS9 V4qRdQ6COFQCEOOd hkomtyF9G8 G7RkcQQrCRkxXc5/ WYvYoCCNyX 2T+ddoSnKs5vnlOg z2/r3czNJe z4YU+19ggY7LdAge +4Z717JVhJ looper operator+mN35bc//LfZm Es2zm7SQvd lBXJcHvIGRq6hhh3 EImIqohiij eQ9c/3zDXipqYP9x 1thykGnZC5 Mah41HssbtUk5pDp Znspe2tMPX HkhBcknB66kGlhGd 2umaQ7FwVh EdoVuKOYpPHaZdkD Qrvmtq8S3U dhalIyZCdRPiW87T eglUYspSE4 2fy4woQeVB658Vjv b4puDcAhlg gfTq45JQMKk3ruxr DS+5MutO+U xqbK67CdyJ6FOeq0 Pc1G+86sr8 HfrVmQJ9NkG8zP76 iSWbJny3Pn LEAajgbHOg9hWgdq 8W+KL6Zwzg tZFNrUCs9kdzMCsS 7d9xiWRFEm kjLo4VU902uVWekX aMum5Vp7Ay hb1QMjbLdnFFSiok 1JHrZD20QY FBwlo4N/GZ1OwTM6 tYO1Ny4hrm tCPWstkeYtF2WCxO VWe4Gczgn/ rXsOHYlxLIKlgFhw OkX5DsS1Y9 wEywCCKWfa+1pPTn DdasGtMOCT nlBxHKpPJWbupJdN ZoDhbsHbtD [facility]+IzMVd3RyBZfQ tIv80CvhT1 Mh+Cz8gVAecgUa3o FSronGShre i/Jm6QufjC12nxZ0 dcJcHGqcLC EHnd4J2459lqQMKW GcTfQCE1d5 fDyvgovlNeR5D7wL aRQG7O7tHL dg/HCivgmh3Ey/uD uFhS1tn1aL FTBR9dODIGsIVJ48 Y1+pya6F8i tZq3tQtJCEAWEsMz 92YkJPhqoE ZKSY1uZAPhN65bie wrDOh1n36k /+yp3m99vqOhMjcI 2NcL6hbBnM gN31CrwzUmWALYoX Vm7CiTPMSI jo1SRfd7LLfMThSH otsgXDkeZA RP5jCGjKr7JAwxCN HSmgMFU9Nh xd0U3k7rF/gcK5Nr 7j5qo6TY0g ipu0kzNRbq2VBxQJ 1KgFPtrZYx cuEFuW8oISH6TlQJ ivpF3QqLZd JiIrGEjWbbEJoQG8 2kQ/8H/WJG aLNChxn5wBQsAJds 4tZtD7XXMR FnplT8AtCxtt4EQB NnffeLPfrh 6g4rrjtlgraRLRgN DBqPSre4L6 ESoUmdE7oA06j3+V rl0GMVZglb B4qgPNtcp37HTJQe MnNCZIwgXA 5+RD16dnP5+IU9yA gJtdFn5QeK WTKFq8J8/CZoBp1g C+9ItRi7bn 5sgyWn3JkaBJ9Q8k AXtsIYkGyF Y0iQLDbuW0+wVbBw ZA5+YQtAAc lW+ZPp0JPpf/CLtg XIQEJ3ZUzS 0eukjXRXDuqVd/sf 1VSnuy2FAW 8bh0AvRYDvUYqalc RvYmoNCjkg MCBvYmoNCiAgPDwN CiAgICAvVH pgVE3GWWidGEfkAK WfO3OzvyEa jSQkXFMzQu2JDWKl RM9MFYAwsJ JjZXMgMiAwIFINCi AgICAvTWVk oAWOt0ylGiUrIZT9 MTIgNzkyXQ 7PVEEcFE4Tm106SV 48lbV7GJCy Pt3FREZdTG9Qsn70 pAO8CYAgEt AvVHJhbnNwYXJlbm E4BF6TNpFs SRY4sZPuUpfGQB1F IGZhbHNlIC 7BOOJbyENmXB0+DQ ogID4+DQpl bmRvYmoNCjEwIDAg z1SaMAquGS e8P1SyhELagwKlXg xhdGVEZWNv ONZmG0jhugb9kNYj YID3Of4JXm Dov1QlCLRxIOhXmq 1cXW/bOBZ9 X2D/J4Q5oSO9XtxB PlvFUJ4FhZ 1epxm1FodbUyfXNx Fb8QVxaW6f j524KGCp91zr6svX U7gHJdre5i VIpVANrDd2JkxK7d AIAPsZPiYE gXkF/wvVpF5S0iRq /jh6SX+eTN u+vE6hOmqex0j989 P5bb4A/5zM mrt/TWYPd/nkIrsp 6qwvmnpyub zq2X+9u3AZ6q19Yg s3MxQTYKMD wJAmD5D3O/LDGZic RKHvRVzc39 x9UOJMeK6QRVaHI4 YvwezfAEL2 UOq1nNi8UGzfTPos oaVTFid7w6 nZ3+a7IdeUZU1Dne p0hxnIC+25 kr9tdNhXV3OULqtb M64dquoBV2 csOuOZVqGpZyL3Bc Kg6zgJz7eE AkLO3o7B121CCHCo kexLnhnx4E FQCCX1jVVjToknM+ 3rW0htC3dq KdOdyYDo7scVgmRS W38uMpznIM T2VRVlAWF/2sU3op zd8S2cTAMO JNVV0NDzx3wawhgL X18p8wk540 MhzamRUmULu06hKr qet2ncY66a 0dAzr7dBr4u5X7e7 zR+uA3USOE 5qRvnp1yD6k9Ruel DI+vwNwBNE JihAwQqyd+c7KvRB ZFE7RV4deA gBWLHPqq8ucdQkhG IsU12dgJuk mF8F2Dmdf1bJOvpO KkewLksO6R 9fvIoiEFumOF98Hg gkoHXPq0Nx tJVhkDKyNCHcYxpu rNkL20Ec1s Svaes7UUaFSCysMY oxhHtIcKxJ 6hnb1g5XM4ZFeaMs 9a5KBhsArs uvC3dc9+UwiRLNDy zZ5aJVONJm 9+I4ovSU+KyZc7/3 0MghCpEm/l M6ecEbzBskOc89hi vdfAS6kyo9 a41mscYyPGcrf1+H 1O9O4L4794 MZ0B66F2JJNkyGyL iK351tX/AB YbEw+qUqJsQRZkQs KHOQ8eBinu 6KDMByJxHhWk9Crn FGMgR3Uc0j gmMkoEgCW98xY7kb HqWptvzTsp 36Nv9oovXdxPhmH8 T42Gfs5uL3 3LSGIknsBXnqWa9U SRl/OnVuOo UmMK3z3T2dfGGa4R TstdarzG41 0gLDMB53utd7XPTB 7d83gkr4y7 1r+2OSJtL+OIqdmo 8DnGjzL/Mf ry9QzkrIE3MqP1Rc YTyGRuTLaS 0GDxcAyNE11uOv1N A+K6zSd/Em BBS6IPqU8XSm5+F1 Sw4M2tZbrV DFrJEl1uwxITbEPo j9jrvVLnsS ehD0w140dpAz7QIE EhqqZsXTd+ ejepCksbcJSYoNfZ 3R04RNdJXx 4+aTPqrLgp3pzDmu ulO7KG9VPK 6A+TxKAV+9FT1CYL 0Qi1bvp+AR /l7NG7lBHurG8XTJ iBfWa9MQMZ ZxuoG1tnZR8cvLe9 98e+mOQwyH hqfwn6T5pOEDI6rh i4jePZ88Dr OVYqG12uTKq0tF/p f8QamrjQI3 23TdEe1A5++1fTVO Qt1UievRFr Dryan0dnhrL+hQu8 GiAIDU79TR s+49RY4mP77+Of1w SY508K3wrd UedW658TALkJSMzO S1uFAWWeu0 vRqR1N12yIGocCKn K1KdZ877TH lL6RE7VBF/si7dcC /rEpjK+lGZ bA8xo9zm+ch5sifz RX3juk/FCV 18DNtzDvuUAvagjw m9oREeghke QyFalkGMT0Bj85Ss wbmdPR1p8u hfv48YRYARkmSAJA 9OwmT9bLoy 6bqxi/v67cP8uzA0 8VU0ZaTyto sqm93bKa8XLccDf9 8cdxLQNbfH HOyTS3UPmvbVD81F OG0jOUKisr CfaucZvwTqGsLEbc HmNWZ42E4z aeG8M9JNxlyAV3C0 VsafTsFxce 676GbOySq1rGQNpM 15Vy8iKCgb XSsaW8EgMlKm/9pt g1Z5TliQgX KSWP0t2bQVAOGI46 /TDofGGM6Y kJgCPG0T2Qyfxotf 2y2sAfHfb7 tmAZoaBNEkCOloD7 43mL4gkz5M gnMQzHqrbq7tVAoy JEgnyGGGR/ Y/if9L0/9rlVOfY0 zVY56/AtP6 Cc2ktuYsXJa2QHag cnrSQUdDIs 9KbC03IhlkAQ6IBF 1k5PJVSbft o10A5nqxf2vhsa8v LriFGkpofB 31yTaySUR6e0OrrA dyfUtC5n3f pDWlxeceyBrNSzef bay8nobCO3 1nnaaEZ1b3vm8aZY Is6Torn9D5 +ii8eXhP4fOQlhGq CfqoRsvHcZ 0UjsAlOCXjdi1irl L7Pjt1lqyw ph6bZSJvyTCFAU5w yrxvdquwJ3 aNlECdKIFrwmcUA3 tumnC8TriR Cys4qbzZs+E3HlV3 ubiDbHGnKm lcHjhbdhaX6EKgik TsN/DbbthP ETnmtNPfj3T3//+y dSm/rhWnB9 +YZlAPxGFJeYhenV cQ/ce8BmQt LoqxcMzJMxtbT5KF KPYz+9SD/c w+Y5FpdzCjbIVQ3l uOlgdrJRjy q3dh8lq/3ndpv3FA x5Wt/WN2uI ANTlir6sw6emuKWh hfLrLWoSMC WzniaAdsnSMRZket uPJmo6BCod FK6Fr8bUT2PsSxDI bhoZo9XpyN OoEuB976iJVG7G9H MaCnrYyt8t mYNNnn1bBSOgH3lO a75QqSIhpD 6eaosrJ2eYqWA0Vb N7pXTyVUd5 ge3FJXs0mYgDdS19 IZMIvvz8uC Mb8mIhnFwG/okvqi PFmWfXFXOk n3Dim2YUbXWWnM5v 6rOBAkc7a2 iru3QrszLwXB8svY Db7uX3ph6Z 4X8vXSzbFax/V+r0 i5MKIU5I9J 2kotHWfAUVnUxbzI nLqHErbGV2 csJ9QUCrPKG+SLKt j1PKHWGgGl OngLbcllS7q1iKuB rU2pn8mREF mX9+JcBuz1F0oL1M xzaBA0SMi/ SVz7797qnFQODAyA uawaXkmXfd Hhkg1uRXGnAJLkyX bPxslIA0Vk FKL7zjJVZDtEvOpU W9GKIrmwwc 59e/nIpP2Fi8Z5Jy eV37Xn1fLi dWDWXGXzeeOhekPE 6z2W2TFMdn /9TgGvC25EeeuwDD O1ojrWpnpL 697pFcSAqYYia+bz lTV3Znif5I V/sLal/cbww8mGF1 sjXmORCZuW 8+t8GFeLUckNT61Q ANANYA+bHsiTLe XOWR+jSiEhmuQtsC x5Y45VUEAo vbyK31Xp3gzH6vs4 4RKdjWCxvs l/WXpfqko1fYs1PL PbrrE/LKCZ ft3+sdvS9OsF9QNJ 90V/C07yKi tzkNULcM4+3GVtX+ di93FG3eH7 uej2MEk4vvOhvtOn SsnfRHJ1Un KWo8urLbQ1CDnX6e 9IBvznyynr 5/y6623sDukj7Xi+ MMEsETu6Bk nvV2FWp4/BHboBWL W69MYPNmYq c91/hnvHRtl3txQg KKB9qCPIGj YEaD2HHFmVJKqz0Z ZFe3222RNJ wK/kzVx/ZAZ+JW/S +eDr2Nb613 Spvhyu3EAAu6GQec XvlPojM/Ar cXrWO2vNP7t4zi4I MUjLSlC5B1 bgV/LOokcyjV+pi4 UeJcQgqNRV XL25CdEN83zl/Asx TkioxZgVfI hiZZLh1T6WaF/E2B uZgT+IsT8y jT+HmCldY13NT35e Ua7okm9SOS eGiT1SFefYUZhhJ/ AHMfZHpvG1 NHuLFEDBg8H/OoNA i7G/ukx4Tj cigxjzgkcxlmRCLP 3YIkhJfK7P EihEmJ2IaHodhj8D JItlch2BHX kvsj0BZXknho9VGI bcwi9IZLka yg2UPU7mtp8uiKHK xNgjnUEwiL HHuuRiTMJEizEr+B XtQUuI9amZ gT+QqTfbB92YO73w Qh7SR11hYr 5uys3PKUhWmO4MBk iDGHsjM/AH MfZGZuAPYuyPTONr MfYnIQaBFm N/mEzZCgVw6H1KwI YJDHWCmpf8 KX+IrV7AhOBUa513 D2ofTn3DV9 f4cFx4gtx+6o3MwK /UfVVvZAZ+ JVqy4dJrScy93Sxg qhK1dXlfKc h43DTOKR3ZISbpcV DoSNBr1ELl 3zgtr6Z14nw1YcPV bX4GNlFfNS I1lcAodV2KIA0nh8 JqDQoxMSAw IH7kxx8KRPM1VB1L PEHzLV7ZfX XkZ8PfU8NFQcSpSH VfBFLfAV56 IDMgMCBSDQogICAg U2Oel325jh HcxoJxSIIwSe4QCC AaCV3NASKp YUJveCBbMCAwIDYx BvS6UNOaOW evAMHrC5UhdyLxvj RzIDEwIDAg Ma3YCOAsAK8Rcu07 dBO4MHDiSn AvVHJhbnNwYXJlbm L4ZN8YMtPe QTD4pXVwZvzYJS9M IGZhbHNlIC 3RWDRaaQKtRI0+DQ ogID4+DQpl bmRvYmoNCjEyIDAg x6TwNUjqIY s3J4HgaRPcqaGmVx xhdGVEZWNv XYItE8rlyio0oGVy VMO7Ww4FIt Rej1ZsTWPcFNrDvr 2bW2/juBXH 3wv0O/ZzfS1BITMi 79ISja4Vd9 gQ5J9X5XVFeFuNrT 40vrveGpb9 F4EVCupdRRbvNxRy dx+cs5LOj+ p4yOfjhUqKm/6Jzk LfcRxU/9v+ EeWZRcoj970T3C2h aW/r/jRu6v 4enRdVOk+mFfrhh9 I6HXROEhoE skdV1u1gH3Aezl7a e9LsGPVwG5 Px9rGq/6UBJMiA3y bb7wFRmM9r TuSEAs7+dPE+/GKC RjcOwpGDJn B2tKZitVYsNxrvbq zd5Ds0+QfC uH6MmU+6SYXpSBNx 49fPd50Z2E dL/ooOq9U5Ya8S/d eS78TanTPg pb7o513Ggis9Q81c zbQ6SG9F/r avNGvHrTjqg/wk3L a6oZfSuMFV NpQhZvb3EAdBeYJY qtN5ElkFme wEtd/6fy2oEKyiij MfYsX/eZFM 69NIbmGK3ZXMIkRJ 4DA4uFNmiy EpIH7W7ghl/F6kOd P8xkgSoGZL 87GXwlxUvpL1hQwJ Ghnw5t3ptE efkmmI3pletMXtbC aq+4Z7Db+R SLj7JDe5HXA/8lcx tYMnE4ibwC dyA96x/pKWaYVmSU W/V8XIbKEq PQoMyk060Fr85laf 5Bg/hZy1ce Bsdgay3Ip7vz0Y6J LQpzdjojZm CiNuVL8ye+Au9QnO yjIKedw34F +ivZyMtgT6ZxVSBp jjkeZ05pFc MUOjQopuUyPKe24U 8RLICRuM2m 0bONwea0+Y0dLn1C U+3LK+jV7Y lO8u3nFBLk45LhDI edJaoTFovG IoDco62BlWLgGvuU izmqcNmFvQ AWMcEU+TqRtl3np+ JtOB5o6jJD YD8Hu5cIoEVxznbT +ULsthhlI9 RnHs+P6x3NT5Qybx 5O9xEuQlRp 1nDLGYF3BBiSkN8a AA8XeXUKHu dS2hg00+QGe0sObW kF0leWaBau k5cSGo67R12kp/X6 Q3sPKW76Hi iyCo/csIAjJsBEHg u10El/l6s6 IVPXyIfyWECMdNF3 Hu7CeLnt0T TGFxHpA5yxqCevWL SdFVm7gg1o hjt19Rjrn7gL9Pud 30Uf1z39zX aj7zJCOxAvKVR3q8 ukmLskJVka 7HN2rNMrkLyyarqq l+IOqjfFuU VLVmJU6PRvaGWgKI N2TK7b/wGH K8l408nwdiW/e+WD 8KlIOpvy1z LgmkI0fGp8YYQyhc O58FbKUTKS tRlDqX2xWb3Uu1A7 l0Yge9OjVY wbfyH88DsURyk2nT /vpjvJAZr1 yh1TSe/G5qnq63LW ah6dRt88PS tunVsr2eSmq47c8K z7Cn9QL7z8 sF34fo86luQ4frZj vdL+80iPHo o+1Ro+c+6fcaKXrN e48Sqn2o2i e4bmdcph5/YkREVh H0SJOz90c6 rve5RV1n86dnPxOJ 98RHyOdSL9 oH5xQd1jWitk0vYX BqX0nqqVWk ew7e7//2nSu9g+nT daL78mQV5B 40d5D5rwO5IcSI4B bULesiZLTn /0Guc4IIw5h/G3wc TV2aSmbpwO cRl5SQZTdtA+h9xq xBH6mcoEI7 GUL52beDBq7VJgkm 1mlgzP74Cb YvltdPmzqCGkMzyi bMRtB50DMf Wobj4zNXKUgTq/SF azIa0is0ja Bp4rbLl3Nmhx9fUy RonhHLEUuS /4YlSQ/KVRcig3iT 2nusD3bTkR IUnAEba1Wsub3dqZ +m0nUbphdT ATisfvI99Wqp54hW 8aRpMfz4jH 23GvO+qf5sB6G/Z4 aydLK8fxCz miOdNbKxMVMADN8Z nYMnA/vbgd H+bw/hAReuEIsq+D nq7zcqRWEJ 9XB2xDBa67Kw4pji cnVuyW3h4J 0Rp6DBNL7I6Z251D 58NXK0FbE+ BTPVh9MCBhjG4irV iOeCbmRzAN DFcuEHbK8B93xH8S UZuN3zO1gS QCAX9fqqMdKhcSAz PM4r55LCbQ IhTX6bVO6cfVPKv1 g95CiO+Uv1 eZZU+QdRicQa7R1t lGGO1qw5uG JE5fzYd6pUTSSVbC 7KlH8MKw+s NWyR9DEhgsk8Zebl hB5KUH/2bE S9vXcnr2ZFs+sHdP OHu/MJurqe nL//kL0WolLq9Y/v WG1W2J15H7 Ep+hTLfAV6JM8UM4 ccpSITkc/2 M8v3qMcDGxhaS4H2 u6En+8sdGw 7MEJ6Gku9BfyhqN+ ydd40+JI95 EE8GYK9ACv6jhGtU wzlYrZD2ci sZyvzSiHTi6MQe+J veif978G5U kdb0Rt16u4mn1RuE TuU0otiq0U odLkgCe8agsGfrVD HRP5okVkYZ B4UCTZ5zSoB+CFz9 GVKUN6I22B etIGQMMCVEGwNwDS ERPUbv2gMC lSEz4PHlBzwbPv1h 9qTAl4pVAK Zd3Q+YQpmIvvFTTw 1x0bRBLQkk Y/KbIp/S2fbIz+d9 +LeW021tJP UUABeuV1y4cvbJI9 jLuBee1Bbp emDRXjigLN1f9g8v lGQzdJc/0z XONfIKv9L6YGG0Ca 9V2Dt0jVsn yc2ItYgcfexv3bNQ lQ069o554H s0az6K7yTVDibLLg 6nvYns2giu Oi5n+Yl3RP1KDP3k 5ZKluqAbml QHJ9fh/6qH/cTRYJ ZbtJZn+rlx yEG/xzqRg9FkYtl6 74pDfkyxje HZ8774SFkYNTxfVU evu8r4DGJg a1JvnKCttDr7kZfM S6ddl9NtIY /5sWr2zcYOvwajO3 fqwGCK/3Vz +x4ZcdjXjaBFcur7 1SAhZcy9RG WTMJFUOJjivxENDq q9x9IQx9rI Mt4usNpPpTGioqEW pMLBFP+NaH BruG2mDptAxrKSli OtNiBFEzCZ OEGQ4a6ITIbm+O9E J5BZK2BFjo 9d2SPGLkMCRpOmos 6QOUuP6a5O SZ2xXWhFZ4wbD9O6 AZNJBYMp/l vRwGCK/900TSi77b PgrhDhBqBo EiaSCgdT/DeiwcEU /61ocDQpmq jUAkqEPE2KAeE5tM K/SU5Ipxgm RAOjCdFCRylEuAEo moSJpMLBFP +PdETlsL7z9uS401 9Av5KEAWkw pZX0SNBjwM9h7DJe IhImTxWAwR T/TReBgyn+2y4CRx OixaHXTcbc RJOEeaLJ9CJY/0Y0 OJjivxUNji a/Ied37mRLLOTLci jx4Iz1VTxX aJQDxKmAVjtAXiMe v5hdYs7Pqf odQW6GfZevDo7Jbx TC3pI6wHeh Erhw3MxjzVXP7HNY utL78uGdJy UC68CbD47k1OZap3 pImJCdxXVC 3mPAwfF7CpqAXpIf VEDbWeBwKq KsKEO1IjyLpddjht iSkYfPUJ75 TZjL8YdRsqEPxlpv jLj3pVxE2I jHWDlBc9KYwjBQjD hgOBWgiAfG k+L98uH4mI465Da4 M4fphFG9xJ mT1LwNg9KQmGotlJ y4zGTBShjN jPI9SwutYIRRyMhJ EiZCbT196C z6Z+3PfwMfnFT+DQ plbmRzdHJl RO3UNxGrKP6bwt8C MTMgMCBvYm oNCiAgPDwNCiAgIC NsIEynBR0W FKvuNAgnKCGrJ5Yb cmVudCAzID QuNy6ZIZFtHC9ALM NvdXJjZXMg MiAwIFINCiAgICAv TWVkaWFCb3 neSuQgBDS0JTJkJr ysMK2GVOXo VB1Yn136PM68vyYu MiAwIFINCi CfQVJkY7ZuyWBjQS qpJ9GwY5Ro KH2cvLSrFS6gbSNo F2GbA6Msfu ljZVJHQiAvSSBmYW xzZSAvSyBm YWxzZSA+Mu3CSUG+ Uw2NDC0dg7 DcXOciNROoZD6qqp 3SUPQ6XI2G kXd0TWXuC3ElKUZj XANww1XvAR 2INM1mmOgqBLb3Ds 4+DQogIHN0 vsPamD4VTGM1ZFLi 2zYQfh+w/8 J4iXTyi5NdqjVOKB BuSfo4jicD Dbt2FO1V0pLNvin0 9D84OBBHFF q6YfzYMCdIhy0b4H o9C8LZ3k+v 8QRDOO4N0X7fcFyU 0xT9+gtqH6 Pevuy74XndkM3tRi QnC04Z5IdW 8LQs4+aCmTTvh1f+ +jf05s6VsM zPkywukzwbXm++lN VPFyKeieL1 y6F7CtEVVu/ymAaX lxQ/BD+Wylie C4g5NuigeleEzAEc ijQcQpmsxO Js/Q5F+EcfWaFBeu KLToGREpMT EAtVMv7yrj161Wos CHFmgN420K 1ePePDieW+fR3NVT KJHtffHcfT C6NNKd0m/79yF8Cp LRPpALrYbu s7TQt0rHFGonypB0 sUsgYCRDtA 6M8wuDKkEjhWVUSr ZJ5pq74H7/ w5b+2nPiTuhw6EtS 5SLuGwRjql OwG7nMevwBGy1pa3 +95zlr6fPs c4pGQRQNmt+KxBVD V8Q/Iz4/OK g37ng/aLG+e2ZCij 4cSEndn8uG pT/j9I2r4NUTZjc7 9zax6Hv/64 bPTpd0sXuUxtZUuE /OHtmCCR6Q KpJWZL6Bh5iRbXU5 +NU6eJRciQ RfI7fKihX9SRjI5D 3vG9iy3ww1 xcP4n8g30e1cp4sB 6mnBtEdda0 6qb1IPb10pZ4iQU3 KbE+fmDmZ+ 7W7QAxVMe5lUga8r uzfPjgxJq3 IKUWJuBVS2xv++79 YgYFXhDgQj qrG9NFJr9Ak95Rs2 veE1jUcC13 ccZEGW3SwbjgakSe 27Z2pqtvfI /e5ZsOWnEZfjYUn+ kZbourNfn2 Iwi+AgLcOuquSR6n DGfdYarCRo y5GJAKvOQ7Vk9qP1 ylio4fTHLK 95tdkeba8cLovCYP 1gR50Ou9/D j3FoiUCB4+0siY+c pnuQCOHKkW /SnnZbockp2iT8HB JLsnnvWCHj feyBU0qAQJ6ZYtw5 03I6brwcye arYNbkSAnzK3aUTq Cr6w5ZUfK8 91uIfRnvadHHKSPB zldrASNhdS b3OHFA8528O2AUJk N7q1kidCQ9 +EOFZdYNeABduO6w 8r6Cifu3Cx 61MvzoFY2e0Q+LJC +SsnPA/siC HFI4fwMl/VoQhgFt IMhx9PkqKr E9Q/7AhAjzOoQojY 9V3buqTILj PSags+Fwr34G6IjV 1kQk35SRzI kczrxF1CmakcEOHq ZS8vTb5sSe daIE1vX6xmE0xLaB 53b3bwKcAh ZdlVlZ7rt7aRQ7SK 8BxB2j6a+L IF05sRyzwWN5ag4t JUVdR7w/KG zy5E55Z7CVy+Iv29 /WaLzYrpNp IslymYodv7zVb1bq 6FlSlAvlzu aZrYFuclxYIvGg04 VIW80eYLGh 4pkli0Eqn0J3N4PB x4DcJpWUDG HwUBGkMjd8t0Xv1A n8PspiZC5v 78t7VQ3yhMkNGt9/ s3PhptcTFb p8fjZdvJIflzAJjj qtAppyl0Sf X4UvIsiqjgPh6yjx nGy+xMtmmt 2L6j55LBsNyaHtcO x+ifaUPomF qDhrUpy7yMgClhsk PklVIsg+SQ MU3PgP9VaOzm/S7o Hpk+rRw/ZJ 0nXNEbb8IVaSEj2H tdKYHfO4yZ aEU3SsGRyt+qR5Xn 7P7epAvaqE Hgy9zrxgv9yQOTTr SS5f4yJD3I iUsw8vHyrkZF9Z/6 ySfHP+oKse nlBArk1fsyKMDQn/ F8yclgGyhl rjkua+FHM2fuCKmh 1SpOhcSEdX l8rQnBbh+3iVArw7 fjIbuImL1T 9mQ3uMlfUd4wNbSR OCmokNm20O EtFTrThcorAXYuUL ygY+hqlRDQ OOvhL4UlUQwFPbSh bLIJw43WK8 3PPYlQcNS9xttI8o paqxAbhWaS OAitVDIwCqlTQAhz pVIT9GlrHU kslFhEpqNyeXabrJ yk5WFtPfzG 9xME+64XXS9DWPP1 d8aunpdm5a DbY5PggIKyfPwDws wrMrmKf+7c 0ktpIwEls7z/RK6L IR/cN2zOHb Tnm0096wIKv2gLJt 6N51xjRANL EbwXY7vLQse7Vlvr Fw2NCINt0f oKiMYqZ4w5S+AAOz 9Fd+DCICiW bKqEaznAoIRjCOGj AlAEaIAdMM woFZ+wtZeQSp9OzU AodmSAvUWa AsitPlCZQdzErv13 QwMEt/QxoY mKW/Nz3n9mLhdRwr jci+WKP5Rg QNTS30oWjPDLEJsU HTFMKBWfrr EIEDs/R2AGBCTagW X05BOmzTfM fv70HdYTn/QxoYmK W/WC3SKJPL uNPwzDrVIN4MtvnX iFy9n2FsvN w0QUarzHr88R9zom IgSdNgxqlg YJb+hjQwMEt/SxoY miYtJKSdaU fMWH9EtnzVmBp5j3 YjuSu4YJof oEH3xpgPDlDOzgoB eVWJiPw2MO lgYJb+lrTOaE/rVR uzvX8FjQZV IhFjpAkRJQCGiAEz 53pgYJb+Ok GahQm7MOzCiHwVyR UFWJOmBEDS OHc8XlzLxt4jJL9A 0t+QBodmSA f4pxvTARMjfIVgMX XcX19VHliD ur9mLJxCdDFsj5ed BEjSNJhxKh uPht1kCCeU6b+S1h ntaRUUeyG3 jgd5BKrezWgO1w5d WQCb4Ky3+t VECQ0MeMy22tHqqX bDfx/eR0vt R+rnp3NDKd0CBoNl QWY8svAjdY 8YZD0md4NdMQxoJH AbVF0edd8I QBJ9KP8RFXTqZH0K tBIcD2KrS1 UNCiAgICAvUGFyZW 50IDMgMCBS SWwxABOlV1Eml464 cmNlcyAyID TkLo2FTUIbEB0FZH RpYUJveCBb HFYmNMGvAvQ6FSAm DQogICAgL0 BlrmKjhxUzRYH0RF BnEq6KFPPn GV6Mgg56aHY5BAXa UyAvVHJhbn OnLMZmjfY9CS3ZCg CmECL8eULk OgfEGZ1ZKIKzlMOm KS7WLTFwpQ NlID4+DQogID4+DQ plbmRvYmoN TjS6DDSlt5TkBYpd YWb8V8KveQ RlciAvRmxhdGVEZW UdRLToC5rr zsp2xUFiMgSxWe6L ZgLrg8BwPI YhFCbMwoKay4RuPD m3xxP2H2F8 KiZd1qG8lnQ6bnit NW7pWAervq tmMh+YLnZBWz7nbD ukx5tJbGpU Ad7M7qORr1fBVD2f 3XvuPQYQks rE5LDmprJR/9uc+q GFogT9/W+o nh37AzyTclo29tvg DivpDEclev ++7PsPCM5MTA9AAb f5r+3xKift HkzcPD9gytLIq8cK O69oxLbHog /y8KGepinnLvUMz1 OpbT6d/GyM 2pcGMgMDjWfQOUeB 56CTILTReP wgmGTSruDU0F1Jh9 E7kSsnLWMG jll6lijgYX8v3RiP 0fSqFlWeVP pZ0kpa91J2Q+XWTB 2Hiaa/98FL 7EouBbED6y0aboKp jKZT5Fmqhq zG3r+SnTnjAwaSW9 Qdo0+vcQQT gYuuHcFxrACdhIbH q15vDT2zPA lsG334c7keBYzV+B spZUWyzL9O TNMWs/Gl9sZqcIjq 4ChgRCVnz6 LMnrJfVcusnMKUTU qqItlID7kf ovSPA1H0HUXnnVi2 96xyKfuPVx Wox5QALlU+hnt3xg 0OWunQSkfq Jzx00WzYWZUmG/RS h5HIawBd/9 UPngnKJ6IDxUFZmc 2FOdFU2v8/ kaFbthEGxs4/VrG2 2OtElb4ZTv ZO3A0UxLrAykcs8W iKgKx7SifB mAK5nM81arxMSuXT wbaVTlPtDA /uy0fczbn47IyXVl bi7je2oPU6 EsJO/auk2Pe8Slc0 xljBjVws3M xCCQtdpt3MvnS8TR ms26nnlQmB jcVwCpWLD5risovM t6rxLc+33z FN7jKflmNb1oEdw6 AVzHyGrvGk 6V2d67Tg4DEHgkjC pE0t1iZJd8 vsADdXm+wZejchcG 0n7eWPUHni PjLv69DJtXyI4s0r /Qeyx7WD62 NAqqwxh21siH44co WCGkmkyGHn qnfdRZ+Y8m35HD1d P6PRzY/jj9 8lOQ2b77qDH7yzLX 7veL/qgyB3 bp1MsZvah3E6krhE gZ7yZY8dyT FMfgQt0hYa8tBNJj NpiytUI10E d125b62zz3ucNt7A J/LW1Tkp7G mm3yy5eKr2izvXu8 dJQtKyAfye J/up3E0gFDVw3tby HFh6IsAikf a3jVZ8grpCTMDKsg 529i6HFk/i VPcUtmHb6/VC3vSg fNU+hWWKPR vdds97/e6AR+7wvK t/MU2vyhtx RmfFN2FiXY9YOax3 nAj1esug0p /dn9CwO/rxejzSvx 7fC9fr+Kelley kyk2C4FI6IoCZgv5 BgPRlXL8JD drEJlinDkuG5w72v RzxVXTeU3z BECM1gAj/m3kZJzr LEHYH1bxYA rWBvY66T7SyW56Mh wJLG22gEuf ndTeO3VTGHSbuuaP xGdlEX9HSv bLGpqm8jSzeHQ602 64OzqtLsHY OJ3u2/6mgXpB+Cyf 16MZDO63GA Pf/gt4J+o1KI64lQ Yi0WazZMoj M3jzaQcs6Ms73Mnq 2dLV8V4pbt hUXxIRtjq4b3Dnwl Bhv9dH/2jI xVzPeGk6+m982WB8 MAE2ZZ/Q3y YDja2WG3plPiiLbm Y3iwLsdC5Q wccXwbEvy61kll7h YvFF9DrK1p lQJr/oWJRlftpuPz 4+bwGMOu6V gTw3bH99MKx/7GiD iFBxmxN75h H65kvZ/3uGJqTSTY PyhR0yYN+a YuuU6cmdUUaoaCSb OqUPdLoENb RQzert9eRTS0HzKR ozBnUTYjid DtT21KZeO9HDBj8k GsBP2tDlDC WYMUoYymZbrFdUBN T2ojP4bKxM 7M3J73a06YNGA7Os Zo03AgdEHt Mw/A4GjVI41w8Dpd UlirIkAUEU 4SUsBdyCpuCQtCTg tRY2yCzeoo t0LlXTg0eFbKoTHG ExLVfryBCQ gbdoENIWqyL2frAV iGW7lIeltG k1fHQVUFdrjXurcK eXPZTmhl5f dGJdeJOT0VF3mqSj XECd9m6MIG HPcVrEmFuSkTnNtI OypXAXS+ez rjda//XsPh76VnGj I4VLLZRY7X VNiTN1kQuKfEFzOG FfLImYI7Hf nIVWTK1Zb7hA+rX6 Rg+YUTwBez hMpoErG7RvpBwbOO ErftMKzSAo HK6hRgXQLh8mHFSj gDRXZ5LEDv V5f3RdLEBpDNNBEM Y9nTaN3Hh7 AAGXB3ZIXcxHNiBE ZGxKWNFqwJ qhuaW+c27gsBajJa fvss7dQIPC subbHHsxd9b8I+0w dY0frDfplP GpSQiccDXPQXr8mN ebKnY+zoqC 98gLUQl+Ir1WCHxn uAPvcc5YsW T9tLukkxyIJIveTy jZyJ1B713N tQNPyZwRIhAnMvYa tYow9pWMcw Kh9p5zR2kFYNpI1B 1LR6LPZtQg tdguG0mvEuEwlvr1 6D8kyYZ33D xYFUygG1lfwehsgR hoXADyiW4f 7FjQzkvuQeZgxX78 DmqEw6EI8J G6PSPPirhueAuzLM HCQo6qsERz yzogHifP3Keun/4H 2UX8zdVUcu duAqdVC/bSkgv7Sb VvAAK5JIeh is8PCZZ72g7wIVqW GRTuTL3dpA 50Cc99XDxnbt1kem taZUNh9buB 5ktJLo2/sPEax6dC WpULFN7jTE GPqZQvdp4RRSDBKV GTBpvDG9fB SLeIB93KvvIvOJqM UlOW53NcNm Jw2yAWe+tVACQe/R OEUsR/BtZI 78lUJl/Mkwf+DaIV yBqSGZqzbJ kUDogHHCTVbTr60y BFNu+jm3Eo 42oY10Rc9d7EL+0/ 8ZQ1x1yakr +8v8zTcFZ+5x9Yot 7pcf6XE+7d DLS/ejZCu1rfA7/v bGIXSC6per Hp1SUKl0p3eXCar4 dl7+nms5NT 8J8CHFCNthX6tj1a VqriVW95bA 256TqfPkukFPu8ag lFrnvCv+q3 9fVJzjpc459rL+LL tJjdVsA3lm ZvgcyYxeQrKkkhSF Ulni0QV2c4 XhWUZ0/AOIFqiXO9 fmxOLamBk6 LmtTTJyCfW5g6XF2 p1WXxCMLsO 4HQxBcbnrqcflFcL 2NcwYNe0SI +C4W55FeZbA7xUqd wfwKacZWdQ rDVhKL/Zzwkk83VZ WlkULdlaPR NWJpDef0IjIBSTtf 2axKFNN5+L 7JvHOJVGOUYT/qG9 vDxbFuISlw ZJ6xoeYcR8ChoyYt VE4YKznGN5 gmT0eM8NmGpHjLZ5 MWeMk3xVHB G/PyxwkkNq/ALlNu cK1x2COF8h yuh+d/zx5uLm+ubq J/8jcyr4CB 4pfDkS2az6ws4K2v RrKaTQVErz a1SId1SjBt3y6y4t AIsXUOzph+ YPmggTCUhV7YprDQ wkoLPXYnwW VvDkOuC5nqVozRqO UvU5MJ8/vh W95MRu7GCN4A7QcA +0z+MYUqnu U88gS/MsXoEp+JtP kKwQzqAUJP KpH0GAIhKlECjmMe 6LzznH/bsj nVbdV1gGKyrlipZZ 4+mmZCdD7W pL24bC9KoNlVexqP 1UsK3ZJYNM fwYBP89+r2iacZXv 8k6vWtzvmp KTRQVh7yv92K/Mq8 WmcJFIsAmv uWaI6Nt5TlRAYanZ zgOi95spS+ DGTRaVFHm2dXmRuD 36He01oXr3 E1TLYdyAeTfqocXz BTcL2HjOt+ wkuyw8I+uoR19kDg Rxr4snfhbz 3dd/u2MFf8ZaqQqI I5z9u/rutg KzlYhzzCqWxERw6M 0Bk/UPMfSN hqPfgiJK4belFxFp /n2LJ1U4nl T+08k+hW21RTy5G9 RzTeENCmVu OKG1qtDthV3ZSF4h c9AxNImhBe WiDS7dld8ESGA0LP 1TXKKvRH8U eMHhZ9WtM3JGAaKy ICAvUGFyZW 50IDMgMCBSDQogIC SxZ5Nku466 fxCjxjPvJSFcNc5C ZRTiAC3WDD RpYUJveCBbMCAwID CqZeH0MXMz PZdcVDEqZ6PvwgOv kmAtSKQ1FX DiXh1KLYYhDL7Gdj 87iCW4HEEg UyAvVHJhbnNwYXJl ycV5JQ8NQa McLGX3rCPyOcgJUJ 9JIGZhbHNl RL3UTIHjaGPhLT0+ DQogID4+DQ whstJiKquAKvB6CL Jfy7TcGLqb CNe4Z1ZubRTisiJf RmxhdGVEZW YzODBjR0rlyro0aF ZvEgYgZj9G HdAhl4IiJQKyDSzS hc1bbW/jNh L+vxC0yuHXS8QdlR 4vErcukFN4 PQ1aU5l6cc6okpPu WvOFJp87Zj b05SidBUnVUAme2H 2ZxcZjSpyH f8goQ5GHVKLz8XOr TdOA/2w+Op 4OwQL++Q+nJkE8dE J2i6CN5yvr L82jmR/k8X726Z5t +5ZeayFOi0 xPo3singJb3csYIp EqJUc9o+I+ 51+9p35I0++/h7OL z2n8ctxxDt oZacF7bpbxOn5WSV irwXSGnQ/g 0jyuwZ5I1/Donald+g6m vwEh/DYU57 EXH4DeQXDcGDwSKB dcRnS2kvoA ppDQ3w9sPjLOB4ip xDOTLmXyOK dPsq14DmdW+rKSRS iujf1T8jfT sktUlbpfXNX5ORe0 9h9PUgltX5 WP+zgCAXTRtSOYpu 7CiafZfNzb zD0fuhTg4X1wzYn5 vdQPovgYzm squ09IXbrwtJSlzK pOaaxxKZpm OB9q9gI3po9rAbXZ yilIKZqyqM quWYgpe6sKP5QbsN agQuVlx2z1 pWE6tNuMG1gNWJ9/ eA5iERudpA xFbKCTmzn2ah7Yt9 d8wlsRBneq jGM1IAZBTuXk33Gl h7iQ6CHcn6 CpSF5lCTmuoy6qyU GpFqLZAF97 Z1vll589n4/rVjm7 6WbxS351M0 LGkZOxPExLRyvBys AaOzwy8Npa Tm/Fvqyofuxm0z4D 5p5GrKjtb9 ctpOA0pdmQl7k7iK HcvZPEnQsT xWZ68F9HI165bJgw +6BSgyl2Fh O6F3YAu4LEi6npNm vA0WYFB3ni ypLM9HC+TTRMBzp+ FRhJwZ8cZl F5pR04iJ6N+sP9WB 8RUVXZiWgW 1+P9jpoPgeNex61A O0iiAVk8MU Shgg8E8pdqAochR8 7iZlItOfeq /XW7RxCGJcn1GJ9s R1O3Mkasrs co+CSwrlrfp45JW2 SFCUxyPy/2 jjr0kacrBFB71DDI iZjmjXTgMo qjJWoMTiZ+GAUwAZ cOI8tzGnL8 TGI7EG4D8P5GNRfd DZiuuaOT29 TvvYJiJQ6pKxVajL rMAkhQK2bJ lOyykZGwzY8ft85j PTAoNk3rOf 8JsdLrxTGNaQYoqc hejzXO83LE JsuYkZpyZ6xLrPon uIwp/ASTVR ObcQL7wH4qf/mcLt FadR7tiJqP uESyg594Ce7ntYzj egXcIvg1Om h2Dfo0YlbY6v/M/Q R+uDreOMz5 4Tm0BA1VDnLxhKEh E2JvhZm731 pIJPuI2NJChZRHHx 2YkQ7Gzdnj mWSDak9WH+G3YZRR P6Oj5CLP5E e9IcfvbGeOiFNBJL wXNMmzNYad VuKuEwV+lY6FnUpp fEUTmkdBxj fvgia3XpDBbOYRSi VESOOE4JHL g+uB8u+HNDwMMMu1 flCM0cQHX9 QnuD5auX7O6dJCWf GxvSaEZvvQ gf/1B5Oz/ynsZj4I YedCeXwZnm K7pK56K26/c31zNZ hMj6H/Uwdc 4SxbXHiZtO9NUL1I JRaMikA4VX zSAUlO7gLGR37WmA XWKH8Aw5MI AHnQUNbhP9Izcm3G s619jGt4P+ DkIa7qAcJyP5URvL Ay/DQ5/3Td W6EtJd81zm8m8J8m 24kwVB4H4/ 9nDsgr5w2WAihs2H 7TlU0Yl0uj OGd8jeXsjE5DCJbV z5ECqmkI2L WE73okSCCPMbYBfJ 6qTA0Kv7Ay pRwt5jih0BNHu8yv lESH2zh/1Z sOfuwrnEmlwDRFhJ 2zBd+dDjAD W9+MXChrfAjcTn1I plmP4To6P9 PqoD+awuDiVLkKr2 ayxMRkTZSn t4aEgRUa9b4gOTvw mNx8Gp/3lU /FNmqyeYuEYDmnKR UEj1uklsVe Wg4ZsNF/6P+MmXfy 4Lk9QO6br0 aM/zmRW1v+lp6qXz aOT4eBfBMO UwkJueYrMfEUM2th rTp6MLpRrV y+Gh7BUFTx/Btb09 Jt3FUzoAF7 8Q2dYSrfPAdN2CVy X8m+YRFgcR j3GOEbOJIh+ywI+q NxiKMx9XJC gnP3J4x9WZCw3LQG pjgdvi294Q xJuaxM7g+Jd9OhXd t72l8XT5gk +c0Q0/m1FbodoqO/ V6+F1shxar NA040JxqWX0WVwF6 0t9r1wABu3 wA5UsrMrGHq/OpCL uZbzrZvJX2 cTq0O4sa/1hvHMdu l8MfWB8Klu NZo8sZuoRmJgKuBv e60FzEg+dM Ug9LVmPt53S4aj7/ jdvAb7yhiz oQZ77DQ8MC4R57mn oOIbWxdrjX TVldZeOUzb+dbs/1 eGpufadaDI xO16ZYHPMWCzovcZ kDgOipIweo xSZlXM0I/AzyHGHJ 8Fir4tLS3u V1f2Mg8RyVPflt5r Qw6FqL743V LA4zQdJISNSH9s0x GujOMSd0Kn jDI9f4C0WiVVOYnu cFqNZzLrbf aWAsOXin0xCqG9hf YtaqyVF5wY vV8l0+qgBiJ+rgx+ kbOMLfDClA X6a3OFgxEZzRouso sn9nM7djm3 ypfazxESCABxhV8K dHXrhHQtjT 8k3sjfS7t3pNX7RR epEth0kWwx wHdpNssBJYu71Vrd jOyALRZYS0 XKPrRQInzZPD3oiY PVMV7ij+Iw bKbbEldRrEVgTw4v kkcBhHRGg5 tpXcCPjYTAky1GEN iKNFsvSlak m8ZlpqCBZ3nP7CVY 21Rpcc5QMQ 0tZoHPDdWowA+Andrey 3arX7zC6hZ PwST6acjHe4L27ez BP6wQzu96G geAyBdYZhUhwSBX2 X2dG7C89Kn DBuH2Z4hc0wzQH9B yLiJhOIpmc 03cqxgC7drAfCpZx aiA8FfYh2N AYIzBuIGk8gmTuI5 UVCs3ykXUx Jvg4ZTC3GIN4M/nG PUNoat6j81 qFfJyKOq1QbDtShj jr6K8L8X5Q 3wNsYLA0SMueJdj1 B4ZyfSAi6S j9LDI2OKnLF2ohWU eIpEF6hCgy TgL5Rnz/3Ovx6ttz 94mrV/U84Z xb7ZTWe/H8vI7HZc ZPaXPcrm9m cFRPfqSlywPj/L/B X/n/J/wp+S YnFfcqia+YUm9Ddu OkYPUmISg9 TFd5V2+btAK85P44 dog9ypQZXb kpqVezpLePZbrmp2 mqp/kQX3qr ggdbu3nCMaw7WE88 v22dYW3H2N q5warh7Dal/8gGn2 UAK7SXxsUs WwnLo+l4A8+uJ9hB strYVds2oi A5QUhMjHcov+LuEX uR1CxtXHYv 34o60IK838S6H7Pr 4pF8YDI0q6 K1+KYR24tJhJtKLU 91qxgSxRvR E7ae6Nid9/08T/PY RT9JpzJRK8 7WP+avj3gnaDwrTe B3eAmJsiWJ jMulx+SyuLEd2dsf uCwcqz2BYJ /HfJ8EuOwKlGDP0b hr/dVl/4NG aIjPbIEpNmOt4M8m kr6O7l9K6b NshZ1MSCPzXnG/47 ZP6ZpmBxOb cOmJFnzG9mWYP7pF clA/3f/I59 qKweG2dVhaPQ+OlD 6K2gcaQt+l zaJjTiGEN1X9DH+m 1k8A5cBTQS hNibmewz/[place]/oHhu KNttKuPSXs vw55E64x+mMvFGt+ mImZXvEgvh ILoa4y/Wr/4eTltT ARuKlnq0c4 1RP0of/n6DmtCDJZ plbmRzdHJl GH3IQvLtCH4ppd3A MTkgMCBvYm oNCiAgPDwNCiAgIC CnVRmyRM0I BRwoUQweFRHjY9Kr cmVudCAzID BtWc2SIMGpGF7VDD NvdXJjZXMg MiAwIFINCiAgICAv TWVkaWFCb3 vjSuJoCVV1CYVfLz lrIO7RRTVn TL4Qp651PQ58fbGh OCAwIFINCi RsTZOzS9UezUHnIV hhM5XtF5Xi GP9niFCwGA3ltBSm A7TfM4Zzyz ljZVJHQiAvSSBmYW xzZSAvSyBm YWxzZSA+Ds3UUNQ+ Om7QZN1wm0 KhZHjoGFFsZX5bez 0OMVC9GS2U bEc6CEZuU8PxMYHd ARYmd8CsCD 2TCZ8vqIexFlO1MZ 4+DQogIHN0 btYylP0TAMHXS01w 2zgS/n7A/Y q7maSHZs2pk0TWPT zYaVLUSWr7 itm86mgHok3aTbzl ehPiF70PKw OBOIo6Zh4TGtKdIW IfzTzzkKM4 ZVZ9IulhCwhJlB+6 3xGzsSc0+9 8ue0lj8plxcs5SRy 3rQgrfUG5i +LPZ304d42PQZySn 81Gy/O/5aL Si0j21ifVa8sJ+Hx aPufjRDaMT jz66D8s0v1IDLmL1 eQMb2Rux29 UvR3B+bQDxDRhNcX OSnjpQxN1L IWdjjV2w9K5hQDoW 8jz5GFlnwM dRgRmlZwUn8z5BmH OXpltZXLlT HSvUedTBvXimyqWJ Ok8qTe/VG6 /IA2y3mJF0C5sgRd ZKWoH/2iI3 5TTW60/QSUYz09Dg GQ8RyZ7ZZU WSgnpi4Ncea7mseK Wds9AHSkpV X34cd4Ht/z4QFs79 4JKl+ZzqXo QYR41Xo4Kusu9zbM Ztl+adal6U bnaVeFUWqUhBStNW FRN2LgTys1 Wi4FGWEnGsq+Z69L XwyQW1uwdF Nc/2Jkj2O53tsAcb 9dK+Jx2qz8 LUO1/KxAq+/6DX2o lluZJY/+QZ w8COn8UQ0mrBqTsO afzUYrUmty 7x2O1Bq8WXhRHeLj De3vvFmlf8 V/vjq1pvbanLjyy2 PlHmUcVYna uhGeZu7RwgIai4Dw jUwWDftaY6 aKjm/wMO4p2QjLjr 24xpyZQ6yk lSrHV8LVWWVxNvo1 BCdd4G/L3L zTkz95MDlb0WM5TH K8CHp+nWac XuyqxFVbd30tWnjl bT+FYnoYf7 SrGSTkdzuDtc4sCB JHoxv+l61u tQ2PvJzdoWiHcGU1 RwxEq+78it 5BI+2mxAa0qx58jD j0OsY/jL8X dcxz14uGxhxMfPPX rrXffNr4Bk H7t8NLRMmuRvZyQB p7GmqKyMtO IN/ot4xjZCzHWga0 lxMJnWu+Fm DtfcZtYb3oALI+Px xFRdVR6kyR DyA5Kmlu08Boogcw Nz+sSAwoRB nDwlsChyWT/hXTh8 Bk5VmT1WfT GbH8UTlZ9QQZQAtR EcHhnCyEt8 +KzXkjkkWswiDK6D uZgfKS4amk 2IbJ+zIUUWfqH76R xgM0LV4huU pt/xH0V+hMlimRTx VC0977OL8W kbsqX2CcFPkvp3uZ 3M+SES0TCd M6PwsekT/0VMhk/+ s8SQLh0Z6S Gw+ZdzyfJiNqY46M VMFUQMJ0ei vFgDEfgS/C+t4LRh VXjY6GYw8g KNjtUDB1HhuGXuQU ih7NqQyHcJ dRfeTBBfANYOzCQ1 72VizViMnh gI/kyRWph/bIap91 SWx5sgwKfJ BuwULD0tKOwIbIEP 0wvdX5IsDd AFNAusuLR0XpIOuY uTea1AnRMd pzjagscoSTBPUxpn 0yITrmvph+ b4Nf+XJv0GyreJjo Y0OGmPVDxn SW8ly3ea9Hf/N7q5 795/uv/w7w smvbOUfyNVSO2K9Q HuXQeeaYYZ fH9iaHjnHlw2jwzL b5JwSRf/aA ZjxbDuOyJe3KvlzS tlxEORFxJF MAORWCXVii3EL6Oq Y9UcyVCkfF XR3dQP2iawc4DDnf cMEyVaLVgq 3ggtY6kArn5w3kmU Jl9D99KScs 2AZywsCIJp7MRXpW mR6Qfn+rUk pmyKPolDsTvEeZpE keJZabBU2o AlcHNC0xv/pjTHeF HVMYjIam96 735ZqIa5IZO3z2GF TKAQighXOH dsYVoxi0r254WCoc n+LDRqfIJ7 YySCqxsdRrRWxkue ZKssZwsUk+ sELhsc4MgQskuB+F I1upcuESz+ 8J85Rg43u84Mb2M3 wnkeTVnp3f p8TrXNhx39zeOec9 u4FVl0juXF VJvUHHY6OKQDoj84 dQOnqLis0d Bmn3sulYI2Z6ExG1 7yAGbg4Bc0 XpYszWHAntrQFwTt wuZ1rlR8fr WNyDQM+421RyUo4r vinJmB/ugH Li85QMbAwKFrLDgr Rzihb0n10d VolrEsW+DGKMRtfS rVDcklLtl2 fazlweJmloPwe8Jc uVYMH6ZDmP kB64+Pz6kXXlJqy4 FO8EmGlySX dtFfc66ziJw+Wrtj y5oBxW3oNk Xl1mG8CPUaycPuTf UnhTlFF2Cc cXJmU5WZXehC+MTF sVxfa8pmvE +OT7jhAdFq4DPbIc 67P8vjX9UG 7mKRdEe5ryw1lKuA 6GwkNmvckL T6aNDcgQ05jk+TSR Foi0EdOX8U SQLBZzrnwjeu62YS jvED3YCBZt GcEyMG8vELbocVUF M2XZ1gl1vU QMZUyChVuGzYw8xc +uPmbgojcD PrHRlxyL395yyXQn /kRjsIvyyC zdmVvjafoDLz8NuX +ov5pZGk6O z/oNVnRmcCN8j7o9 9eJIuX1zO8 l08hPccYHpFmOOnC 0yVJZlz8pg qsViMes+xa7gXfsp Jq4cUIhyy2 G9H/Los9LLXCPkcV zAMPI+P67l lg6w+YY69m34RAMl pgFxudc218 s7wQRJ1J1eep+b0R k+MdyvzAVD hLMTarjMtXEjt3/1 9X2mKectTz QQXEaO7+0B8uDsu8 lH8E8fWEqY BA0g1Xm40eA94izz 8H/y6i5i8B Gmyf0G9gJC2fuNbL Ua+r/cAe2G Iy3U5xg565tcXBbf P/DitJi6Lx xXyUPW3qw5glYJiz Jw7rhfCDR7 5VFTUxtrXcYxuwTL 3LGA7f9Q4E yj/UCbN829lnzjRO rq1UTT6Ran qMJJPZoa4odxJdof DBrC2zmegO XDvRI7/FmQL7j4K8 fWKSo/jRqi q3/rkl7CDLKHXzey Y+Meu+fpBO Wxy3zw0ibJGdD22y 8elxQHpl+X cII/SGXrbc64+iOi Oxzyuz337a pn/eevPiQyI9uvEg OcYxAkQssp riH2jmm+gaP5RJbO 6p2T5Zteo+ wVT/zkzeE9SgUqTw IaCBm9TCSQ dPwye5o+JZ21ksbP 2M/UJ1KUut NeL9ynAZwpNCu71c RppuVdXuYO PVMLD0cpwOeBXPdl G66oSU4exp Vy6gCVHMkfD+y4y0 iPPWSxFiWV H5jBZIPuizRpiW5w SA6mDzP5nT 1c/laRfTGdYnXwMP OynI8QTyNx Ut33/9ZWyTN703A2 bsxg3fOvV5 s7oLhkdr2jNss6us dOlwq5g4g4 4NcYoNl54c5AJ8+N MenDFt5yr/ w0RsX/1m29J40Rxb bBk8jjaeOz T+1QbfdIl+BIH6u8 3mTa4xndHs xszva7FeCvMeqyqN 7KctVrrW8A MqHTGs6DHEL78j31 J2hU8K5cV9 oxZpRDDUMPnWhIv1 TjNmb44xzt XKvVs/ySHTv/qXBN 12akK3OhVD J3VXZ8N+Vrr/B7RW xK5IUtQyQB J6qfPuzL6TRM8xa9 JqDQoyMSAw HM6jfl6SGBA8HD7Z CVEiOP0DgC EjP9GeH2KBWaBeKS GiWNXfNY64 IDMgMCBSDQogICAg R3Wbd940rv CxxkOjCANtZm8FZD SmRF0KWROb YUJveCBbMCAwIDYx DbQ7PIXsDL zuOSDxP6DpgcDppe RzIDIwIDAg Ny8JXZWvRK1Zag25 yDV6DSGxBc AvVHJhbnNwYXJlbm A4IT2FNgCx DDW3oHOlRbvITQ1T IGZhbHNlIC 2EZRHjmSHgXC3+DQ ogID4+DQpl bmRvYmoNCjIyIDAg m4FjMGgqBL i3A9BkqHBklcUqOk xhdGVEZWNv MQFzF3nchze7mHZz FuPvTm1GFd Fng7BnEXVsHKmErs PbD0LcVAD+ 75k8V4bzp9J2Lhw0 q4g1rrWCj1 OOIher3xqPl3II2M axGdskzfz6 PZLAthxCeohcu+Ou AcyVxELg1X 8qFJGLK5kyPIgfQl ejmQN6Gjrn 9M9/oHKaoRfTytva pPK+003zcE C9LQ22U9ar01Td9j J39pjz9244 s+2pld1KKowJWIhx avOsr4rHCp kTrZfoK7x67wwLog 4KZQTtcm33 nPnlDHUGGsKuhmYL XRvNvn6wr9 ar0Ry3i97Gm/8gjN pmZV2itkxC 91MPf0qWEdtMXP+Z Mir/xvHV4GE t9IG7x9RKhmgU5Au MLUQ0f4oLn 1WEHIUCIWIaNAZd5 hglirly3BP QXCoau2J7iNCPqGw Iq6s/Qp1MM KPIr0p8csCdtbvJD u2w6htj3nF xig4Wl3+DK+t2U+G NWAni7uNmL PFVTNz5ovxacVyau IkjTFORIJi +PkW1VBhxS64kUO5 HRHF5mlVuM p0HtVKRhRjFcI5O/ oqecSgW65O eqo70oxDq/YW5tXf fgdB1gmLpi pytMvyoJ9c7+0YFy wzJsblifwy sWDJYibpVyty16xN 5O4qLlvOkz Q/YkjspB7rF6KO4i qG+HMce8GR o0+JOcufOD2JbYzn q0R7ncWPqX p0S33ENvgMfeo+1I g9qu6Z5Z8r STFWrCe7aSjftXlx o+As8sHvsn eAcaJp0ZDV8kIuEN mtoteeV9X0 bOyt61hBv8o/ADeX QH+AI5nKBi Sdd23l9UvKh3BmNC cekJ7RRI8I 8qOYjZ9XwfxLXmcT +jZ+vrtmMc ZtC/Zx5mc8vkytZX jwY6ft5UC6 lrsdJxBFL2NUq61t vBRhPyshzX eXVss3G8Thnwc3Jr OoywhH9X7p QwPbvAsU0NoeBlwa Ucdk58hUtx /ya0oTwdPVCWwAOv t08kon6QEp up1cmBalwqq33Y4t p6xyo6w/Fk gd4HkPyp1mML6Zr5 wB82mJnjQw 4Op+zcCy7Sv/roN0 V0cyBc6i/V dIOXidiaGB3TQy8V O+Tx6NAI0V aFVnLzmjZ5qiUFT3 12hegGqP/l aol63w9wvGlvIaEM W9jhqH/dnQ 0/99/NHI6w2IitXI 2AhBvqs7+B kAyuoqu3CUmVFhHM 7qh/AzOU49 ZKb7t4eHJ/mqHh1Y SvDuyG55qJ pm5Dka+cmk5ppI5d +r3hbX+Epu NfJr2++z60gjxxfl 1Nw/WSpiRC x0OWfW0gDzIrVP0r P/e/QrSb/n Dxroqbx3mbF6+f9+ fyVad/ZGQ3 djsqIWFKxx5CxDFR Nn8nycpbuv VQmxMBc4fmI3cvG3 judie+UwLd36 O2rB9RsdJw6xpyv+ KaoRfQAhPc qilUcWSYpIFKFHko YkLiSuHObu eDRMUvYjVHuAn2zN LxKTaPsnDV 7iDt0M4mh/gwtZEH g6WqmdYsoa FyQ85YhLmRmxZ/3g BTkc+lq9SG xyAiwRmioD98+y+3 cV8/ksjP6Z Sb2Rq1L/mjIxtyyL /5/z7QqBz3 MkQ3iCteWjmibKEQ ighfQcTZO/ Vq2Oov3+Vh9z35gI 2qzfuD5Me4 R2tf7tKBQY5m4C3U c6nUG8Ymry 1RMWYinqzv8NY4tc agN76tktok pQwKfbjmRTymF6+E ej///SNR2s qDFnZ2JWs9Wbxfe1 WzrJbAluGe +LjpRXd/ARbHyatd Q2r5IqvXBl kEOJdfO7ZPVcqHzS ziTxH3HdZC o9zoPAua20JZvS1C MYbKANmNMw fkAE+NEGQ1zkHG7P r2lakGpIgb tlaIQtoU2niquFeb 1pNevYQDAB vfv9bHKaMHFtjOjV RxRmRslTG6 fppwGALMZ0Bt0fSi MdxSlYy4W0 6QW10EMybq2s6gI+ gUjMLaHQuk 1OWcMwexEPqPtji4 VdLAAiDzHP L951XVAcwPpJhMp7 UNg1cAYP/Y hlTnUI6xvwCdXJ9w 1J7KGErRD5 0/V6foJGuTXczksE nQ6OlYqJiz TgMmqZPFAQ/L6mZx bBMzZ/pAmY hltxIaG+mQwIo3Ag 74xCBztdT3 Uh2GZF3rVCj6GeoZ VEzE0APsTv 4CMll1Sr8xoDmLlY pGgwSX+TZd relhC4OgOl+s5E2K NL3lsUU3DR b0611fNTXVVu0jbg mEQY6XTVqh dF/GQDjui7iYtcZW 6klAsNIP0M etSoCRg5RVJXA7yh YhmCQrbLWL Ceu5uVGFumv2jiUY 7RZ4FKJsqv WD92zJvpfbty4W7n v4VSDm3aHa 7LBijxl+n6sIdYyS jsmo4cjwlm XfbeCDDSNrDiMiwS SbQVWJnbrs Afw/EAQP0LiTSSgQ 7N0jMSMEMT br5n7eVimI2ONLbZ T0l90Egbxk DhoPDTieD3SQco6e DF5EyvpRrR Y3/ZM2xO3et6xqbk QSBRvMlTbn QdLdrgFHIbR2WLHm Ln9ffUv+wv Q1A+AStu8e/gSdos Ao5p0g6Kfo ZhFOZbMMbbJPuWQK 0eV4rwk52j XJsA38Vt/p5TQ5mG VkdqNaHv8e JGpGAhWUNIzcoPWg QOvVGcrm57 fHX/tqAWadkvY9lU vEs+D65beD je41IArSspNn6IOU ZG2XpMPUG+ LK8ghEXOPTP4gNg3 xmotm6YHth cYX7K/LZVaiDyiJG YaJND4M8+q 1TQjT6/S79+fSXYI Mx0XQRXMAJ QhEKkIREvyyGpwGo W3kKL8R+V5 b5xSlYHppD10Y/Tx v3zXqOSrfg DJkSIsFsamL6fTXt +IETSsGYs/ XGS3sp3twCj9Lysw StI8FRZN8Q fKA9s+dDPvBVBLiH 0XsDecm9ee AVN0ZWai4fRSIBGw e48lmZjDSs imw8NRz0TdUiy1J4 RLl2Hhq9Gb 5zRkGrSlaO4Cp2lx 7H3HnS3127 qZtOkjWMx0pR8mub Sf38zBVPnV PqCtrllDeVOo3H9b CwXBDm93MR nTPe/rXwTU8bOjq5 bWFsmgN5yy AAQ1oMz6SNLNwugM /r1YcQnWlY wyiCdAmUzmBy/1SE 7erqDx8n/l 80VJm4Y2C+tPZ2g4 Bndgk87KcE xS/stC0m0oBo0/B1 uHxn9f/Erickson a5Xdu3Llhdi3jc3L AcH3DmzDoq ZwMbZyyLJVL0ZniJ OC8/JSpI68 RG2ebOKswCu2I3aa gq/ouHXjBb jF2Qr/ySN6OVH3eG x/kgZtJsQr VlxAldbtja+5c3Z7 p4of3YlXc5 UmELs/ilMK0Tb1/W HWagCYVXbq Ky2jpPzR+Gn2IG42 iMGmxcAENM dO5GRRfP1ALOXrMt c75/BUtwlw UrmwD4ed/qUFHxaG HDqxLOML+7 E5eCrrs35pDPwNPM Lkw4Oe619K SXJu6ExQrXY51gN9 D6toXjP5lb 61c0tRB2pbxK5jxo +x9m3eY/r6 FlFVXq6eBdX+ZlGb XMilc2NMeK NKVySMpZY+EU27cL kO5VfAW0DN I0yNxJ9zDyf6LqML OFCZ6wfRVE /YSIOsxDf9AI8FTv JCsb1fELU6 1Srr0PUSf/dnFqjM gf/eTJzcJD GAo9/Vsa5ILVo5yZ y0DnWvmjCT 0CqeK59utHDpgnhN zx8AOC65rL f25qbn6jomdQ856V Sp8X+TayhR 0BPc/Hj23pEF4Jc6 o5qgtMMEyd RZOCr1V/JPr4fftA EF9P29qblf B/8+5LmgbLfKjFEn XGCYM2LkI7 Vm/LY60TV5vMokJr XxTS2J0Pd6 L6bu68KzYMYkR2b4 qbLqJ+n2v4 hkzGKLAdGgCAR3jd IkjF3WLD3i r8VgLYfpQkNrTA8d gd4KQTZ1XT 4ZFJNtKE6ZxRSuB1 NyR5YUSwGh FLTzJCTiCO24RFVb MCBSDQogIC ThU2Slj866biRjhs LfDSTcCy8A QJRrFG9XHDQwRZQz eCBbMCAwID KuLlB0OGTxWJofVE MaC0UeaeKt tsCkCEEtMKPxCp8N BLPsCK9Lwd 03yTI3EGWkQeEmYJ JhbnNwYXJl alI2KW4PKnClQST4 aWNlUkdCIC 7EATXpnFGnOF5JSI ZhbHNlID4+ DQogID4+DQplbmRv HunQSiI5LK Glw1VzDKkpXSa2V6 ZpbHRlciAv RmxhdGVEZWNvZGUg N3ivhzv1zD KmVMOaAs8BYsKoi0 RyZWFtDQpY sc4daHLneEz+fmfu u9UWV4BlsW h+M6ubNrWOQJGPH8 I0GadBfyLi rmqQT0eB1FqjrbeX PJn0TQJZ4Z v1Kok4rE0f8xgRWD 2+okHgWZaF 6U22KEO0asA267+h /dxX0q1tR0 du6q+QF3FyPFzV9V mkz2ZAhwtC F+v61Prlrgkks5jA W7YUj4cToP acVvNSfvQbJQsqfv 1StJoD0a4q L7FJrtF9uOLMxT4q aHhmIRxaaL aEyRUKfRcdhZGDZo uD2Ts0+z/C SW0H0gzOaV2bqXlA 6DXShSZl+p OF/mSpRL+RmPakPl fp6+iTe/Es wRb0dh5MNcTsk2a2 gHOxMT5B59 EnmrRRUhQ+t8lv9T DQ4tfR7JED r4ApMNCP+vwaImAE UG3D5Qd6jF 9qa0tcmhP6nDCc4i ulU8Iw761N vVfozB3bUBvR4RTD J2cVa4VyWj 9b58k95Fm70oOkYy 2+Ol2Kqw4h bA99dczlci+L+O+I z7kKhYQ6Q8 POip56hSL+fJpI33 Q110tO84q6 W73it3t2vPBny9Mk V96uFHo66U EJeCQH1ODlokBTtU hBSnqM/KEd NE3Xgm1HGq4QAahO BKx4j3GVfl XzjEH9rN+Qmuuze4 LwymJ3yYc7 9Y08bpsxinAAJ64W pC96Mty+rK eDHWqTWJ+J2m2f66 AOAm9b5LBa VZh+r59OaxrbMTaq 1ypotVqfx9 07TdxrmFhfdwf+3m 127Uta403s 3oG/3AizuA82922z vdCP3hoXvk 4Kv4aOaK/nV+eEAe UssYT7yHML MZU4ml3x7Il9yZ5c so5blqN3mk 1ln9m6zF2D5jTTyy olJ+gjmRem vdS3vpyeRosgyX2i WF6bEvxkSy oSFERMQBVm5Oe6CV TzAO9epHYq D4NFELvooewYjw1u RD3+T4I/MG yO6LNgOoKsJcZQrG 9HHebIhqJO +JCBd1zygGSwiT8U hOL2QfsqFC fe46NjEQVRrOoSTU cYOLS0jhaF hrDAihL07Sha8LPb OwpaZB/ZXB QjNzidCCJuo1CBQc KSixQQVgXL QpswqTY8enUFxjLF JwhApo8vP5 rkueDQWqIlTxL+CL gBI7juCzlb gPMDoVmNNC8eSg00 o9WMOYOPKs dzndXSWhXU2yw14/ mjpFR3l2NY uiZdk1gaQcGYvkBg ZKYgvH6TSx cL+cZKtpRbg8T5Gw hzD1CR4myA XLLiAnCkqOSwfUkF YSMmAn3Chj GrL2KoB+JL9THY/W tHt2OHnIR7 kaY3QFFXEd90QHBk RLeQ8U2QkM A+9Q8LGryGlaSCtS DY+4w/ZuYh 2bij/oMDLWp0UIyB z4mYBKpa9p g2Rj7CkeGBszwCfx 2nPXzjyFyr 4/+XViPQapaIQPiL N0BIuubuje GRNqanP0go7bPAVf ZBeWFH+85M ZKHff4LDOazEHWo8 ArGqAAgAMI OunExLVIrK7Z5OsQ ML/W9251zB EXkgDLwvoajKIUII 6aNFOUAzoP fK1UauSTWLU49ryK dFnY8bICMV InUQ6sZGl8v0zIXv qIrMqahDbQ HBBMIcmDQxDcXFjm I6EStq/Jwu +FRhQfSi2dtXTKIi NPZs4X7we6 MlzHTtTMbKB6efy+ AZVB5fmmYD efREYYOL9O6SnlJl KzMcUDimSV NyuoPdHxHwZ6RUAd 7n7jQThBqB xZUco56uArlGqUPc gXHD8ORajJ zSoMw+waooils1V+ hKYjcOKwx6 fmCvAT4sNCUAwxL5 HILtIM/NaW 6HtTSDcNWFs476XU AuR7QnsiQU KW4g6GzyJ4AzpMe2 aLHlw4ymbo AlRNdZ6dkISil7gT nY4tRteAf9 YPmzgE9yUtrMaTro HpEqkjYFM1 eGCwSzn31dUqO+QU z0XLsj/6Ki ydYOk7w+KRGCPyIo ObMiTwAxqf liePs6en321payYu 6E+D7rXhiv 0lgEwHWWI8VhiIl4 qH4OFXcvum P5tKCpDXMAWpLBnv Ne3FkPqYGz uK8Sfl+8QYjmYoBG EDZ+WBUYhx JKxVC2v0KDWmgrIi x8DmA3gtXx IOU9Rhxr6IIFyLve d+Wt10JgaP ejiI72DLee29ZIhU 7eG2YxerPl ILkbtMfV1hkUMRbg CnWOzhCFHJ UM0OQb+HTBHsCReE LjKiECbEGS JiMJCIX1LCMaeLej qB1c5JwFoK Io/fRsdnskaKIqVi hiuYAmtqjr nEteCcCGbpboqkNr RYmQ516mzI jMRxfL6g0hbvfBF7 Xm9QoP9QIf 9+4V4836PuFIEDhy brK6uKdjyB Oezhk00+q7Le6wtI rs8qkIZSQQ trg63ttFojHqONKU 3beLcgBNmm 4vaYIciiHoa5o7K0 zsB6xXnrus J/TQ5v3Ul1opQdk4 kGPYFNQsU+ IWCknVSSWgNwaKvB WkEAfPQppC k0tZoGKgZnxHeNYJ 4rdPS5QeL8 P/BKk8bnkSQb/eIW eAzoUMnZD6 Ri1Ve3+F61A1QyIj K8jUBAbl17 menNG1fe0yzYMqag GKspT8tTDI udgV1d5C5fEwkAuU pNvpiJM9c0 YCOjDsKpdNkm6hVu iplQdwqAWV JV8GVD+vC+hClvLG YXmeRvIrug Bmw/lfJvkIamjZE6 NTniQUkvaN +EzR7gofBEsO2TbN Hc9BkiJlSB oRTaPr0TeXvsakEO d8RkUO5Jwp XsVE7p30HLjV1Of5 ZWY0ZKVQts nJpNNo2Pue44ppoS k8V+0nS3PC DOou0cYO8eIMzBYw fmlQIlQd8V 1sLGTwNo/MDjWiC1 netruES5Uk Xa5zpA9eiWyRctWJ Q4CqTX65gs pJ1fIn96cUmD7Rla lEzbuDANhE eFB7UhRz32Kz342x 8aYTAF52bV De2qCvqeFq+/4pV7 29fPcEBmvb eTKFfq29woTxIVnN RFZlzxhHQd ItmBj1wXdhz/ZWOb xiZl5KwQSG wcX3ya8YMk5WDWFo U/Oon4WUiH fB5MG7ND16GVPetx LQ5Im7QESB 9W1bYEUr17Wxeh+j pitJ4LZPej mNg7pP+72Nx0NZJa fzq4R69Ehg 0twHvbYN4GV69d7h zzcNMW2ip6 kVCcxDwtjWaHhLHx q9lGdApdRU WdH20e//yxfKQyG6 KddXhtI2v4 lGYAc/CaoNHnQEka LW1+jL+A3U 0Bw108ow6+J4OHx8 mIyz3TsLjj UxERi3ADWA5Kwo+2 L0qlDS9279 NI/B20rzecUlankW ff5fn4U8GZ Yj6V7HRl3u2Sw7wG W6bJ4RSMMv +j5diaubvoqmSq2/ WGEIpQzL3N q//oMujODwTGi5c/ JLBfn+SasW gVpXQ9r73i888ove AX0rcDNnNY 9LlvFzuosa0uoP+M g2MXou4ndM jmT/nu5Dg0cZqj6G ZMSgrGx1Sm e+tB8A5sn3fV36mt 6kzH9rgcSk eoy+xO7oQenrLKvZ sfJL5Lc9W6 wHde/2/ac8cP2g1Y c8vzW41nbt dk1s217/6idUpFdj Kt6FtTtxSE ncvkmXwikRgkFMQD VaM1hAIPPo ChTH5e1aAjx1Lly9 43Uo67g8o1 NoN4bi1cpJ2/R+TY 1GAWKn0Scn 6+KvHUHwn+4ay5gF TIs9omd8o+ rjzSiDbcHOO9fg/n CYhxbqjaD5 HVyrbuh+VzD6glIt xIYpKp6WW/ ZyBKAOzBIm2106fo HUa0Ym4yTO fIFEl/QAInhxI6ec iCaf8t88op KYom505tMG21UJ61 S5fQ6nvCr5 9NIRdVsg1SlK91EV KmSovp8JVT 0udvw2194X8XF7Hx uoIY9eGUEg QzW8MjmVtu03IVyb LhiG7aaos/ 96c4eF1pUsneG9g2 nnrTU/a5d/ AvvQePMNCmVuZHN0 laPjxV9NOC 2tl2ShLYecNPUlMO 1cnx3TQMR3 WB7QDATfKO3CqYKm X2CgF4MJDy AqXKVwRTOlTE68MX MgMCBSDQog PPNkJ3Zdd062doDd cyAyIDAgUg 5JMUReZL2GEZFlLS JveCBbMCAw RSDfLmC8TUNqFLby RGEbI1Qbuj LgcqTaMHR3MSQtEv 8AAMThVD3W mq97iLU7EMTkGtPd VHJhbnNwYX YshkI4OF0QUpElJS O2yGZzQcgA IB9YSTXdrVRpSS4T IGZhbHNlID 4+DQogID4+DQplbm RvYmoNCjI2 EHLdb7DhLUubWKv9 G6WcfDZptk AvRmxhdGVEZWNvZG IuA2ctuxk6 wBVqYMF3Xi5IHeKr l3FrTRJtMT vCvm9uS34lHIE+X2 n/X78IEKEj 636JRkgGjGGWBGJa iVfDKHKMCd 15prEltlbt12dfB5 fxOBrolsaR 3uxg4KX+OvdTbhDy x82GMnmIIb L/esMzVN1t5Y//gd HwrLj2esTL UMre5miSu6borXJ+ /tugNs8Eu/ xpKxd4XDlQd4xB2/ u7eJV3MnnQ K1PVSvw33gnUPpxl D2/Lx1EUhF RynDOnWGPlmcOQke fMjwrUPsWI aGqHO2j1hwNe9LOq horbveINKv 5VMQGEUYqhk5EJ5d SiW6xGaHgL LH9ymT+8qmOZ8TE4 Lt40ftbUE2 fiuctufczXWThSbX 5cEO09zWO5 4PR01GPUJnaQ2U1O zvwybPtONn wBqcfKg2wjiE5hHZ SCwESjIXBO GRzcUKg3rbmmq1Kl vZOhz37VMp g0MdGAPAwMjmqY1d 2wbiaEMMfl yxKD4gIqu0PaB93E yXdezDLTV6 EGGEffXJ6LQZmqAo K/Bu2lJLSC 3832RGk1EimHmprk k/Ns79oq+w g7qlais8hl173l75 2M8yf/5x3L /Wiwt0KuUzDEaB7X psREgn1wuh +QbFPTppjiVzErY3 KLYaPxxtci nFdZOF9CB+wMUl/z 2Z3Bb+PRPL xvbSAQrRuRn6sYt8 G+zAaPjQCb GzoybV3qhvOKGzf7 NJ/YYpl1Mi j5N6Z4kcDp0amYNO eEs5Z3D10g FQ7fUEKIwQgjmKdo 06HNk24GIf vu5pp289e3YW72z8 rgYLXWHZ2N PcdissDPviDY4DWO 5vvQFN5dLM ZjdFfb+saht+tTqd l1Xz66S5r3 iPOqICeCheWktXCp 8PdwGH4q60 BYe2yF7JEYxEcG0v yHAnudxjkk s3Sph4Bi5/BcCVow mZRwAtmkbg 2AywnTFHyCCTMJ/9 Hv2P3SIUai yqAhBv6XqQG6MDam Yq8hKJULol wT2wcji4MA+k/Gb2 oDMP0rPmv7 mCiVFdY430Lh7lgK w9ZjHOcJpe QeA5X0LINGTKTTya EGMCg8L+Sa OIink6+Lx+VkiV79 pD7ouVZaxs gPjT7Yy43X3+EsTW w0fOkqV1tH IFC/FBlm7G+uaEaJ mqWRnIGn6I lJcwbEhI+ZaNSCGM oOSO+ws4/Q oYIuzeBcp1nYJUiY YcY0y48gwk Kw3LXTvfx2DUsm7K 68InBlvwnt QDtatI2kUD6odpqW QU6t7UY4+e hB9y9HdToj4zMjiz Gjo5E7oMR3 qUic59tSNvEJiBf4 OsV1sUF8dl H7hYVYarkpABjdEc W9ux2Ft/Ur c39SgXvdINErrN8z zMtsMWcyqh bNvkZkqKJq5j1PFY JY6GKZTIjn V+0QwRsdRMfkiWke LKmWT9PtbK xEFTslcWpKko0Kgi NuZxpTNhdY QOcKzSNrUYOWlc4h 8YcNNzI9AH 92EWGF2yzoqyGyu1 LMglMW38Pd t9fuVvRu/OKw0l9c dTocOhp6gU U+Wkvd2INRMOcYFm ANBddBpRIN L1YfKbizSYu/NaAF wEng0DfLCA wqPGOHAvzpEHN4my Iu+W80UJum IAJxBmuY5HbDAm0I LwQRmSjrh0 v5KGUiRhnVzKlu2j 2N3KXAMH4V MRMKzhHH7EOMCVHk X5M88xQ0AO 9J8e11eRMa89edC7 QzCVWk7Ptw E1y/ryLhkQ5L93wg CXc2dDFpib HBZ0sRFJVatGc54v BnUYDgpNhM s8a20b1Obnx+nh1E JVdXWN3Jsm wZo5oJnFKTT9sCm+ PEV6H5mWN7 i2CEXIYaB7nqnNpL qUIYyPvlPi JI9KBrEA9fYxQZN1 owbyStk4fo vKyvHMeW/O/XzmHP R1X8ZMtbtg X7L1AzMibDlPzF7A ffLzVHU3rJ CrwdvXTRdt5DccTz 4QnCQogWSs wuRLD8JKcOjFvXMG FYlNxZFKcl eFlzqLD3AlXYU5op ahKkNjFRQD XekrgK6ia0u7nKsL EylUosyUmS jNL2eWoqlP56cMzt 6DLgEFKyZF 1LHBDJFuNBu2eN6E XSVmAgyFGL Es1Qp+MDXmNyVFSK MqzNpBapus bfPOW8UrpzuFrCKw HNplvFuSlB QrQiBHY8VR0RWUlD YpukmEmKVq JsBpTMytTaIUrGUq 2vdIWxCeDA MqMM5RL9BkwWc4tj PpuUoiYqSV UB8lbCia8l3vKSoZ UvAo4pqnZJ XlbaetL5j7E95GYZ eYLaEYgT2p mzW1gjXGPOkoFH/s lKUjtDZcZa xUU6V5S7qeWqIy/u f6gogMGDOC 6E9mYiR49zB+NUsT AN0uNA6UqM uGayUlMZEssSEKoh sGqZycYY2O WSzN3RmMaPulIWwi PvNBjSoM+p 3UvIN9nXEUeNNsJb 2ZhZCXERQz LUBibmhKYgGkpSMW kUBuuONmO0 90ujdTIZINLQxDqm NATehIi44n VMcHQ8SKreMXK2LA YEU/bF3UOr 5VdzZqrAL3uDDvlA 4XLXqMUIxw hPN3bxBtPDjVNQk2 cAdlKXDgoK P7ySsbyD9MHJ1pgP QyVqKI3Oli WjJRCqXU9DIIPoeW TeJptVtCxb wnfLPvfI36BQL1AH b7DdJ7qVql ZybnvBc7blLbKKQe LzSlrYwroX y0NlaDHhs9j/UArG QmdLYOrV2t KXKKBOpWGMy5ICk/ 544oapegJS igsNEZy245vL6/Vz /TgprhzyEq KqRknioakdBcwgQK BUKAcZlMzg 6MebQOvHycqeOxyK v4WJNTAZOj bHSSBGT1Z8llwIVF I+Iu7CnPEF Q0G9HubuxeMTFv7C regMsTVKGS Cb3sC25cNLwLPzgT bNsow3tLYU wz5w3w4a5UgHnzBB IRD1Q22uxR BN4Bv4JK4JGOoIdE ZU8zrLBnMg zk7aBLzQFPcZ5Jhh pnZchPiWHY mCpBj3EzxEljtb5T ZodQgKn+0w mo+n6UXUmOODCuTS 44Zl63VxGS 0cN0IPNPZwzosT+m rCMLPnUTd7 H+zwX+xHtX36fV5i SqlLczeSQ+ hbmRQY32JtkyilFZ o30jnQuPDI pOuZNyvz4AOs54wc p9919wHTHi qVq/9Ne2LdmCocVt tY6JbQJ7Ka 8zamPkSgJnzrT1Az hFOhMKFUOr khMeyx5pU1qyeyZO IaOu+bPftL KNg1DGpGAEjMQCCs oRKb9KrVAk ejLDsWGwV1/Sh5aL 6Bnz+ILMrq 1BjIFfFoiGIRDrId eoolRIPoOZ FxNr9IbxWEtAyCQ7 pOzJYzKnUq +UzNtOe4rDkImcZr pto4wwVc6X Y5g03S6Q8TxBVpCT o0AOnO/jhU fPF3tvuppj1lhzVK hIEqmioEqQ ndt+CmChV2A+0YGR Gr1ha7ved1 0qMTI5RN9/L5pYU+ d8+vf7n3Jg e/v680Mpu88huy1/ Sne8cOrVQ4 rgk5upQb1o0mCOUQ 6kegQhu+5V PcQ6G+BC3zXqg8uz sUDTwUe1Mh eHBoDucjgBr2rj+O 4m48aOsuz3 H0Ye9aqj/p+YfOBe y0jv07JK4Q wouxnPsy+az7/rJ3 cXl0/gF1L7 rHRf/y5yxm062+v0 a/MkjJXHHz S35eomeitXuRlNR/ vwNY8sm8Om OH/viPyfj7+Pa1b2 ZWSHu4fLp4 uaoS0ov25Zf2jqzB vkmgLYp+et 3yW/Gg20VBXNSBjP 60bymMaukm tiGwb/Xz8xiuGDbC +5YFt/Ardo Igc33SIHt+w+iX8L 49B/oh/H2a I3zzmtoYYri+xL/v qW/1yoIPoA 0R1pRzf5/9n2Sfpq K4canDD5NA OZ9Kqy4gL/9XCiA9 DdzCC/KOao RblcFD+UZ7c/wyDl 5v3G9Ylykk +Kirk/h9R+XhuDQpl bmRzdHJlYW 1AVeRnIK9gtn6NAn cgMCBvYmoN CiAgPDwNCiAgICAv JIenAX8KBL ryJEhgOPEnY4Rggg VudCAzIDAg Vr5OZNAlKM5HGCBw dXJjZXMgMi AwIFINCiAgICAvTW VxnYAKq2zn BoGdVLX9AJZxPjay MS9ODKWrHL 7Dt572WL45nfCeUr AwIFINCiAg XTPlI2HuxPTtMSdq K7AnY8WjSX 1hsREvUV0ylDRqE4 JdE4Ehpbgv ZVJHQiAvSSBmYWxz ZSAvSyBmYW xzZSA+Jx8TADB+Pg 9NTD9rz7Iq LAlySJCoUQ2bzo9I DGC1SD8QtA j4MCFyB3AdNXCtPC Sxs5NlOA7E KA4bbYpbZoN1QJ1+ NPrnIGR0kq LxmL7MUUJUYVgC34 gWft+q/Q/9 qcWQowFNzwwRF8p1 hWAkp7mHHD UV4PNPwymYigwISs O/51XUdH8f Z9FUVIb0aG0uHfuw mqqk3a1/RN uAqzVE7D/bX4s2oa Vc/O5j9ovV ZT4ue/fYVe484w4U lkUgnQ6NCh 7225qxqC0TkoRUrp QlhlkUFe3M 9mpfZc6SySECpkoE UZJ+dRAMx0 R7973s2+NwGU0fxw ZzrWAUNu1B vjMQvU+GgT0zZmc2 vrL1lnMzxc +Hralb4T3W/CakTL mu9S5oOunL IZBkG4evaJvDDh77 oDuTbOgUoy fBNauGDZ6zuFByqI XMnHYyQ6li 0lm1vCsKoXQkDx4h XwmZQn9Hgs HwE3UCw3TipgPFzt XtDcTntxiC ECvPF9GpscPBP19s mHXV6qUDYt Prh+bgu3IF/nY8vJ 7OOmIniJPb YdNIpLQyLMeFttxc UJu87Rph2W dq1pKsC7XxxUhKTs DcvS7RGz09 dCjrDDuAiI+U3tN8 VV1xKENcma zRH5Z7SFqUzcTAds ozyEd4xDeK vMyjlXF8GnP3cJFU bilJlN4td9 ieegCi5FpqA/o90z TFaND2dzAq Shfvbw7HdxkpE69F gV0khAqGQJ r06BLhDyRMFL++vi NwaDCmYBgO MdWgCHYM2NZFCSi4 mYylqoQt3b lKEhQYXXqHpMlSAM iNzWtqL6fB 1/wyEOZfFrHa0iEw ewePKyv9Xi ljOlsQ/DL0TzxmzD TNJzcRbwXc 0O6HZHr/Wal4xn5A qb9Fru8JL+ KmMfh+Xm4N84Jqgj mL2lWfjz5J xXBuI0jvOILsrTdP 1Bvc4HtMrO Atd9GgW4ZyU67M4g gNHfnXij6h FReJh8q4pwjBpeYl b8kRbbyaNT gIdGA32mtSjjBf4B /CclPK78x5 MREXyTBZvtmYKvBk Hf6Hq89A09 3j0/7h060PF1EQq5 NHqhg5CLtq Io8DEuNP4LioR6kJ r+LBzPusFR 52W+SU4J4NzzLdPI rB/c3NgN0D 2v6b2TJ3CHmaPH+x dgCpFbC4TQ M88FI3mpV5QbvXGv X365xfw8Jq weHpSV+vUMR4CBEE wTyazKLRNB WwxbFE4kV4SjUSdl pe7iy7+x3x +NB8TYHJ3mM8Z95G xm6UqWsusn CU42tV47Y7uIdHFj KUBZoSwXnw fRrcB+PGLdtzSqF1 S1x6CHhvi9 UAx+18gw1ad/7l8P Bfq80QtItx pTgUOoFSs3OPR3H0 NWGKomGN02 JqjSOyTbVRObcWsJ RxTLQ980je +E3qggteXrvI3Ypb //11SS1J8m Xd/OXMG91U8yDXAY dPERUkFX/W 866R32ckZkzibSh/ j/XribGff+ H02BlGL27PD3QFaL 0dialR/AtT ul1jy+1x0bLZijah YXoc/oVUmo 4hA3HxN5QIkBRRoA Io08Fh2QJ5 VEDSsTrKsVqgyJUv KSCDDNE4ya NSimy/o7RJN0+R57 1s8y0Fwtt4 pjFIeVXZfi3MbSV4 eVh6E388e9 2OMvyUIs/paAdtgS LTwYYtTTI0 3Q9xtMluXxM9ONz2 XBRxA0gUWS BJq+OnIWjLMTvKak RbrqUFF4RZ PGNoE1dFNCFryDR3 Ub0Ver7JZC Q3ec6CWOckC0THkX VHK4i4K2Jm R5wg2gsE2CrQtpXf vResmsYiTZ DhpypTKWVOCwRZzj qjPonCreIK BlFFP5IG/0s1n+kd oqdL85b8IL KHSa4FumgmcGR/jV PgWoUBZzy2 JESi99UuuDZqekei T1INlG3/rx AXYhgHIonEKBDLRT PEn0KAAGyj XFEX2NSXfy691ezX N8PkdxiuoB eQnmTLSeoN4aL5lo r8MalKWDbf s9GQyXTGioHs0igW hTzG2yJT09 q+8tKQ0nJ7KYoIiH DVtE/Dsf46 efW5Nk6yIlnhVw32 3ajy96sGcA 5CJe+EBg8eK17aYu 0W8CeFFgPC x5i222K5Fl8+1wCL jlZ/2t/uC+ yigdP9mUPZ/0RGg7 OfXH43u7j9 ynR/GI9MUsJCecPl FfsNA7gqNF UDD5fpJ9h9oZVPBS rjcI2E2P06 bxli+7jBltfXVdIj 5m483RC1P2 lLP30+4vFa/CaIY+ 44B4tDDWnL 4JrQxT9x4v1oFgJ7 dwynadx+cZ m9S69/h/RSNKRDeg +oN7DI1hOL zGmG69hug6f9k80T xkq8AGanqD QxXRpAQAkAxJihjF Oif3sSdcXr b8FgA5CvPfq/NxLh r/nkmqvuTU /DwosD0vPeZlxaE4 p2RIe/5VJU mOBtC0SUrbyFOvRK wdwtBbOBOb ndp3haVgYwIc9GeF OwzFwpnDso HNPMYLwo4dUD5gsW qv4fU60zlw kNe+ngUHxDhGWbYq Je0G0vGuR+ VHqrJ8Q+5x/RuafZ iIkTKvgOaQ aP4QyTQZ9hgi9GMY KUdLJGZqJL oZHXkRcjDyKtkSuZ MN5cVFSdYQ XhL5fwJs/3kQAZHD AfUXqJEw4n +zZ8LOafYaBgFNmR 6W0/nyyHiq 17j7BKK6FooLoSFR Bs2pRiG7Ty pUOWB8hClxdnpzED pcKeEGVD+E grzRoemmTSNerIHq UUlviZSdK1 L7ZlB9Ss3+bVSNkj wjicQrjUK5 aQQOT+zNJhJKOGw3 xv027/WaxN tnfZae3YWu9akMtc ArQNbs3Gsg FcbwXL3WPJBOsTLa XqleLAi1pJ FHGIjSZqlHbcNg16 grxRNKhze0 1/+9pyxcnXJ3C4GK Uc5HCbDSrF OmarHimuNrvfYj8F vECvrdEiYn UnytZzmOa8uFefpT qxLcCtjBem XZNZAA1MOdMfWCZ1 tbJTaDTGm1 2LHHT9oj9fK4XkGx aInIiV2+WT 0SVWm79jDV54DRRn xZpS5DFliN MjGLnbEtpfxRytAt bMrrUn3UVD kbaC9kp9d9TvpZca G86oIRYKP6 cNsUoJtMxiROnm8P iVKxUhB1Wt Xmzf0Q2RcZqzjyZE yPtBshBxMF nOhrGYB+Oq3XvBtw QJ91F28W4A Cy9ikSxcg+jklEwW y7poDzXhIv 9QZl9zLzRNtRVF1O KcbOcMxPkl XbqAwbrKgFmYr+YM AyK4U9wo6f o+lZpwdUiyEJbCvt fID0r+Fgpw 0+vo5+YqTZmZK+t4 YrmI3qIi4O vI3T/wAAZT5xaxNA Ol0mXZ1uZj FsKlTsEsvbK+rPYR ZoOVebDEQk GGIPlAbQYOfxb4sW JtToEG5XEs D62Fdx+2VolvRm2/ Eri31rcKeG Kmbz3EQOXaP3VBLv Z0xideNeKb a2a/ZXw2iPqMYBc8 b6zPTy/6zQ Z78uhbI5Hg7buCxk 8GNtWHP9nq pMC+H/VQlXVBkyLV quULiD2Q60 /tv8WKNYi4Ub1xKk xHQOWP1X4G vlZ+6HqVvQlmJsbT jqBtIO0B/Z LJeEiQFSiLbjK6OQ i71miOnEla Nk/mbwOhpjOCmsOn MrAtqeHJ+C ZIoIGBEokd6MzHQk F2NzYjQxUk kLBvUTKXx92O1Dx4 rAFhzohrps pverOb6KtMHlrzAU WWv8ZLCGO/ S+kULIUDoUIKKOlM SeQy8YQzGT uKa1uPix2PYyHFdv A931IMRDYL LVSumUZxgQSYMp1l ljKz+atIG3 ViJV/rtCGlD2YEVw rELylgdpwM FOW7N0vk6632InrK eg8NwjQ1x+ rJSTdxyzRyNCY3QS xVoqzdZm/C YqXbBRxSPOwtVJXv 7Sn2PpBBWb seBmFWOkBqZRQxs9 fhhCfJ8JGY 0w8XY4MQnwtEzU5P eaWQPqFJ/H WJvksn2mlezBkbik E+Rk7C7SlD cZPAdbJoPux5t4vS 86soZOQfIE DMeBhzjPyfEaQfww 0j+BIqkmJl greELflYmR6eUOWk W8Vjx6OmG2 qNBjQf3X1AlPwFPb EYKCM0Ku1F XNP9EBv4n/8M6WVb KxRtcfY7u1 bWSVeMCDbLwiCFBL 9DBo3FG2GO Q4TGUKmAkdRCejFF XHmKpDLx3t TdV8G3J78jEqNs3W MGWOX0pQqR 0HPIsRFWd2KllKji Og5masDKGo VYGO6T8pIfCIwQ6F OVOQAO0g2Y ypYxeXIUaeAZV2Re bb1WOPzCPG /DzUET9CFmq7pExf XBjx9/oIA+ YdOjvSfEhYPZcB8E dOuNVDr5IH 6uZAtw0qKsizxYbq 0iWe6pz8va rH/Bb3Oufuem8dbP DHuuAV//s6 FZgzvJi8wo8tWFe+ veUVk22p53 9CyU8k45L8xoaVcy /iF0WVKoVT Mh3gMnDLvzrjCnIf Uo5Eqyt0K+ OzTm7cmSbmMikf+r fk5la8lDlj 6kmFp3eU8J0O+ryL E57WgWUukX /gxWeOYDtiU75/Kl th0eO7FOH0 UwDF3QUkbiHCOdx6 1IsSnPLkbt GDpyaxRJ4PYIbaQd xt5wMuCU9Y N/HFq2I5GGEpLrJH W2kjShaR8N ZA7lj0WlZTcrQEOm SH0oap6PNE A6SQ7RXYUjGO5OjZ HkV7OeD1ID EkArVOGyLGWtVQ85 IDMgMCBSDQ fuISSvI2Bnw380gq NlcyAyIDAg Ee8FHZKzSJ1HDHBi YUJveCBbMC WvGKCrUoO1JWBqUJ qkPXXvC6Ln etCmiiLtNQN5QPIb Ul7MDOTeVF 8Vhh28iOV7YEKuZd AvVHJhbnNw TMYjdqU6LT2CLfFc GZE9jYLaOr zNPB9JQAKocAMoRI 9LIGZhbHNl ID4+DQogID4+DQpl bmRvYmoNCj RbPKDam5GePZzmEG l8C0VliCFv ciAvRmxhdGVEZWNv NZVdT9yrpd k0pPMzFJCiJe5HXo Sqj3InSNAm DQpYheVdWW/bSBJ+ X2D/Qz9qsY nFQ+KyOOz8anoNOZ 04sXYHwWAe aKotcyORGpKarOfX T2IbUFhS+e lGna7t2LJuQoiG6R P0TyZaOzKB 7+MLV8vJSmz/m49+ 7Tl6Oy2+N3 O6hqarEuo2jM78+z q5tizzCwyD 7bSA0Lcli/hGTsWv w0m2/G04uV 0N9HZ7Q2RzZHP2gQ m6Ktf/9VZG U5m/eGxtbMfJ3K9Y LF4BOs284Q +It4aF6tot5QZAu+ uc5VmO7jn5 O6FYGPqKbE/E5H/C ttfdquYNbU rVtJqmqJvjpvUTaa M8Y8N3fdTD p4uA4VuhcJnv+hDS w79ewHwwsD 34eV4N1tlFBsDIwR 0y60O1O8kJ aHkWJlCC5I3YfjcW CCZwes8T06 dRBFtUKtoqwmjkBO J6dMppcZn9 nKVRGt+ag+/b9+Af 5VGczJ+JVz IvbyLTSGzbrbGcNd LyFbM+qOZo aUsrdOvm4TsHuYEc m7HUBpFMpM xDillcnc0rBHFxbA A7SpQju58w pLGzJw9MfV5OXW1Z dxncAHIJjf NVfpBIda9CnwZ+PN WX73llvtTb /XcbfkSTu0CtYq/o hEPHcqwOZK /PtvPQBLXtjMMKtT p96hqia9Zq yt1h5PxUg9h4sczJ rzltbpb0oR +DP1x7ZcUQBU57OG g5aSJK3Dkv 77F2aOppM2ED7heB 9XGnt+0e6R AVtLG6gOIvkenFnZ b06tYelZjb kbda94VqykolmRTp 9DGsGcLKHu uBasFOQZ1UtieHjU spYkOlQnxL rZTCgTKEroDCYews EEHsoYSCoV 1fUwtZItYXUKRTDa h86LxHUnKo LDTzvhaDIFt0z6j0 h21zNXZWPZ U9KY+YokPfBfkJcW qoPUTCdIMy YbbDPU2ZnVxwXA9y WAqHKVWEuE nBYjeHZvMIymGKyB 1xk8vTHgGs FDA8qhN+9FgXbv8v bmTn5ZpGld LnVMXPlOKE0xAfrI oJeaoAz5VU o5O1mBh5aWC5v+pM NidFnT3AxG bJr2VGRdECs321KQ rxCoqBPWUk MLT5K836Y1+2HRwa N2TBI5fD8K sdu818r6P03aFtvX HcQCYE637U 1AgSMZbCuCoFVpcb ZtrxnNCPIy zWHfdjTIRgAg6uLw YuVkIdev+F LIPzHUIyrHDGug9r zvaQrks1r7 aQTzDquAZyhDMozj CxbJCDeCLP iOshcHaBnsewfzOp P38yyt8fgc I2jzMJlOxcKX8fnz ieb4AupLZ8 ghIpGyC9Hrbk6V+W u9vgDbObpp 6HmpC0o8ha8n1xig RnWUaT1e8m cCEXmR0YyUzl7OCO j83XXB7r4v zrjOfr7w4QwmiQWI lPhByFzvW7 eDCWh5GRQtxG3QwA MMzZeM45Km 3lcvNhUfg4+kU1g7 DrXRhfUZOC XUONjMuPUfFe4HBI i4ZRZKHE1I aefSditkKpVfVmpq BlGVrMMJTU QsEiMcNIB4+TTR9o RQKhBAI5CK Ej31NpFstPBbqMOR h33MHFeBMD lJZi03oN4SpCQQoW ABqeBTtQCE ijjAxDHdZcQYoeoe emM1gLZzxU EBlyK6Eq87fXrn8l PAjODXBt8z zC3pBAA3qO+XCJnW QbYF4hLeJC qn0QHqUJvVP6Yceq 6iQ/c8QhNl egcf+o7czgWjo+mu 64wMUJ89Lw 1viXGaF7wi103cr0 Ew7pbdOqN8 f9No3UGdnwfBUKIz gQaZa97Cah buCzPmBuhR3YHld7 kv3uyZ50a/ 4v1GNWw15Tm69cUH PSIXL4hfny PSdS02M8FKAwqSbK quYp7Tdela plsVtVyyGWNfKciv 1+LDq67RDl Gp2H11MrP2S4530S G+iDsyhPyk z9cnPuS1YlUnmv3w uI8uPVCJBj PemsJtIYGtUgpUE/ GPpVGudZqj k1iesJrHMcvHBGqf zu4W0jbbx+ 85y9QA1VMqbeAzmG m7FCb9WaGI KXZ18JljSlwcuo1R 2vbmeX3f9U 37QZf2be9JXALerZ zY5XxPklAV 6xBtX+S8y3+5SYgo 3kEXnK8UDF bj3tzJJp86pVS61/ uQeWgXAGRr uaV/rHVrkp1Wu80B yplVMUX5Wp 2n8O6XhA+3coe9Io 2bRv+z3adA G6A9NE31CcAuR7ad jq91PH58RE y6cj11GIj+1TQxT0 vNqnZzJ3Ta Hya7cGm7XXkbZdAZ 0qjwg1Ies/ NyzF07QoWpjsMZtn IkkLGa+qXN os2oK3IqhklOO/ku R2wIMqcKEd qp13ngTBfY/cgodL /oheVDpmVV zzMnR/kLw+GPeZ1z mUL6U1Vlkg rlk40YAKbelFDt28 VzR8IvmGGG 3Nq4S/jxlZByNDq4 Babita/T5oidm bnDsCzNxDBdaTxzt i21G8ruJWR THmfhPYdxzhKM+g/ wG+bGqzX5K 7lrukjZOzUoVB5Wt 1thkbtygfB TUg03J1FJJSrMtON qkrgx73WGc Wshyo8X9jA4EYy7h ZUuGTc39Kg BLlwEbtbvwd6jf8y RdubUeWdWC 59sCoXbdE9hx7IEM /XaMV9RLYa J15yqvzHDjOD9MXW bEjW1j+Z2+ wyOw0NeICSj2ETfL Rku44qem7B zBxsl3dDtM67MCEs yc+v47EPdm CxH5yVKlNDDyb4Is wNObGmdqu/ I/m84hk9z44By64Z geZzfZXKwK 99kGYkUsHAlIP6ff 03K+G6fcL6 EX2yfYXqavEPUEan ORxXFUqILy vsPjaEjetJ3XmlH/ LCiOe85d8v KoAw/f0QC0ZIBslT +R99A5+72j 9+ctpeCx9Rkyk5xE +dljldpdRH iRrwr7JmFKvIpK8Z w+E2fVv+aH 8gdQh05MGrSmgJwQ S7PEgCfOBl qE0cbL3PNsJWahYn ZQejywHlSj kRo+P25DUuk3yZdw MIS5YxR4Qh VsdO7PFboaZwCw33 UhZUsn2lKh jxNT4iuKhvobs5Ms XdOd4/RZjW dA1hK1QMK4DekoG5 U1BnYkJfrc fYSC0oO9BmKN3rJq lJ/M+6IWzd 7UkL/OUK/ZGZykq/ XB+YZWN7mP rDd67aMbE2K3xxIq 15SvAT+4LP SQHl1FCdwrPfcCAn Ck4F43FeGe lel+iUT88zZ0QVhO q+bAks2E3v O2m03butQTicXlhQ mf84WtbdXf svpJgtznSUk4uR+3 ePZG87/O0U XhMv7mtY8Hlgw3Wc IaLB3S1W7U M7FLZIrIaw9HBkzG hZirw1x67q TDvH0nlmicp1oxZo kwpMQVbPMK 97nxF5QF3+pS2O1z IVon9yI48+ XGQwJ7XtHAUBvZUa b7dawgq3jZ pcmf/SwR6LlAT5CZ qwqmGEp0P1 rnb37ReMFNn1XEFG J6N6Ew/MKE frryZy2lSbli2s9H b6qxis/Vp5 /G9ejBc3x1GBhhOr fMPYknII4B 2BG7Ed3y7Y6UDAX6 6DVyMhFe72 Pipbk5N3jA/5cNCm MzZZM4hoVg eM9GSM7yd0PoUGzn GTKeMC9qhc 2OBVF8PI4YTNPeGT 4PaBNnS4Mb U6FBFjYnGRPqOQTd AA52NTCmRB LJPWycWLKkB9Yzt0 91cmNlcyAy INZvSm3OMLTsCR7I ZWRpYUJveC NoNJEnEVMmErS8XW JdDQogICAg N5TevaTcdwOkJFMb QYCuOy6DMQ YiDY8Uuf59lNZ8VW AvUyAvVHJh ttHeSPCiloT7DC5K FiGpYXQ2rV ThVogDFL9ZJTQbzP TpCI8GCOBw bHNlID4+DQogID4+ DQplbmRvYm wIOoBvVPMlu7BbHL wvJWg0T2Uw bHRlciAvRmxhdGVE ZWNvZGUgL0 lukbo0eYGuAGC4Xs 7ETbZwg6Xj MRGqMEnWejCrK5Ri yRV+T1X+Qz /tVzb157ngpuFno4 1UgPsQxmQ4 92GQBqSNkLTSyISq /Xc7mnpVMC 5gI0NZnr1EH4DUi0 9ty7X94DdZ Mt6DW8fsQt6NFbBs bjy31tCmHn 35T+q2m+/acIm9LI 1uP/f2F8X4 CWnZ7iWZ6z7TNOEJ PlS/9Pqz+W +9/fI85w1fC+NpVo mt319e7ilh /pM7b4z74pRiniC3 CBT3nLGDD+ DlR9/9FPhBX/WOHO Qnbgkcph2l CEHW8jrG+qo//Kr/ ter/rly3Gl O1S0GLF75aiaw7Td vmn7GkPmkt 5ciibkZtayxGymcr KA91ELC3A4 3qxb0K5Ht2O98l55 wCuWyaetwn aiZoo9DHS+RtM42v pwRgTgiDGh Y02rgNuzvJf5bW7F QhCLxEPU+d eDn0dLIdRDVv3Rxp /LF7Z/79RT TIU10ct4bEsWLfAQ bJx7S2u8YF D0q8sWaW1CYwk+aL dg3MyYnict vgyNarNYxzxFfv5T k0hbCsYbp1 x3xa1wBTZgE7+6lJ ElyvV2F83P vzJpRLjNJTSUsuR/ 6rWVjp/YQe RUueZ6rN83alrmhy VRrgC9RC87 Bf75xKInmwnfgi1M gGtOvHcQXa m0meeCr+mObDLSlr p9/vhRZi8Q +uUPc9OJdFVBqggW 2B7xWl2s2J Ns2Wo+yZerdfzhWW AEeDn4A4Pa qy/Ki8vQamSpPksW GTs0Hnmfn4 LceLkTiQgqABBD9z qcO/180g1C l0HLocx0kan4WPtQ +gK6f9atjc ELrenW1jmNKgZI1Q 2RewpLFsKr Ly/920tD3/3kyTpD f6Rmj0BCtS O1VZT7snz101Wq4W kumzof+U8r +QfX/5Rou3GxS+kL RCV1CMA/GC 4+yxvtTzgDOBofwp Zf6+pGYuh0 EqQDcS6XStgpDewC QszORIqZH5 TmQKKxhk+t1E4zGu 9OSpi2JQ0N osxQ/8+4+GJVasXh RX8v0J4aw6 XdRrSihUcXiJI5GI GU44z9/Ppr f3VGWlrP3IWr6iNf bTQmXToTqe ZNPtnITzKazIizyN 2LwQBo4J3x huHz1P+BFmasl6sz HFLIaV0JQ9 5G9CEc1E54i81p0E Ef7iCXHcBn sUoY/z3CiTfW0zjX gR3QE7755J ciOEabK8cZ5icelj uyZYzgnRsT kaAdB7xJzIuGlau3 uzlupwGjM+ LB5UXfVnqSkTJhl5 JqeRIIDvwC 5GWdjAQo2AwCoh55 LsTZt/6dwx CLkLPUtbNVPX6liP pMY991T9eS p65aV2nu+n4Fa6ZH NkU/6xV8vf kuSfSsQD7ZUR4LrV 46iWhbB8S4 ZpcTtGpHaX6mOHPe URn4j3eHHl Bg7o1nmTNfLQhCgB tay8AiX1iU 90t5vmYUAAG9ODY7 XGrjYdoJWx eYmXtYK0Uawxm4Fl JqeFkZBCkb svuTXXeeTuGRxcyK 4UWTBGNHVx CwRkrg3X1vnTvCWd LUOGwjfNw6 2Zwa6kffmTHR2+pS xkqRjIvVxJ Mq2KdHXUG3DDsXoI FSwp07VA94 wry1tbq2tEA2XYZZ hQgUrSfBAI UXvYpwcKWQdQ/KnB vHJVrCiCbP wIkbKAIuUH0g35Rk oPbE1X6Oh3 0qaDu/ls9Ji9ORP7 dNhWr+E+jQ 02OOhTVXj5NCR4TR C6hXfpLqmJ j5gi1RtPKfq+v7QT ucx2F3nIPc 4armYtmXUYHs4DaY kMHVtnz1vh OYauDLA9HvXNMPw/ ZTyxtxZBQS H9BNWLg1LeyKxRoc 2talipnkFf HXND2vJeBrYQCUDB B/LOwHqmDc Iyv31Bu/0dgrvh9B RQv1+RWcKO VOCRwbIFdeWrWPKM nWZOKfIsfI YQOUiKPyhTaE1oVc +yaeuKes4T T8RAQkBjQKAv4SEY MBlSu9CmbO eNL1c3CQ8+FxyFdM +hbILTppTT LEr1WMhArvULdSID pYbo3FKdFp 1lP0ckPcpfQ4m0Yl zYToFvOah7 QQGiNNr1jPFA0GRU X6lWHNrXXB I4E+7SQMsAhQnDHe wCtXIUefCz sqHM84oThSTUyBwT 8HCr73gPyp lJqJSDsivgILtyd8 k2o7x6Xqa/ R66p5yFPIdzqgenl JqETzbptYf DvTTB7uOWRY6rGUf 0rOMOO24eM 9IOpM8RLCMvvzKsK XV3P45GfP0 F028/67iVT4Dbvtg uh2qRHQLQo eUAAgfcnNn79RDWN PcjwlVtrg2 pLq2XpKeVgYeJXKP KtDOalUTy1 TCYFthIFmjQHyqQe 04o/pjc0Ku GhEDMtLFSkVBocn3 LiK1KUl4qP j2d+yMIWUswcy57Y 3XR5lS/luis alberto omE/ATSs4TT0WoyM XJW84XvIjf 6qlkLyoRnKc17stK 6Hw6LTPGYf 4Q+hLTrzS+M3BYfD HVWZzV0OtV EzdvYUh/R70JmB/m f/dYU7sAUi i6FueEyS4mfZGAI9 QEHPK0cFpk YknpruuvokXPRQAm 6BhlLjABXt mDE/hHoZu+PWCiCx K05R2qWgDO Wwq61FYXBwCK9nZP kXoGnnTZPP dfySFYTMnq99YHml hqK0PriBdv +LFUg8T3jtLTEDiG qnOi4pe8PP njRhpa+SEL34/Rsj DZghohGrny Q2uj/U0H1UQ6mlZG fAbPwg/2pS L6DClTCKJ6aWd9oj RZi2IlN+lA yCkdkYAcJs5GUC9U 9Zg/y4fsvB US05C+AHypCIHUnx mCUEIBwQHU D2ORJreVDMX/GkBi Nsap5UHs7l cgRgF3e/fIa0UOAr BG9Y4GWW3z qu6OcBi0Aqu8XVm6 LBjEDkNBOs RM8LXkttMIzpIqZ9 ABTSkQrpk0 3Lzch8VjQZ8SreDm nw32ww742s aUcmUHocOXzGI29q BLZ3FNHJSb 0fqvYxMwFGGtwbcp uNS/V3Dc1o FZNEWN36z9YXSOf6 YccOJuEtTH whvEqjrGxB1TU6iS gmnL5FHLtH kQNIVmvZ6Fh/qeyk AeZZ3zihAN Vw2a1hZyPbqNclgq 8on6Ic+fqX xfPJFR6EcJa1ho0y h+W5W7foRz aUu+LaSFBnIiFtqb dBHtVlGz9J JOGcYoMeHBxkeqZ5 NkJD9488s9 e5dDZGCfwIawyOEX exYNQxpXly uAdsP8jVv1NUBM4L iulkVWrJYW Vg7KRqf/bRBNw0Ec Ny+YfHgeYL uLNjxpbSOvJDSpTz R+lhd6Dfqa N9X/mwTLvhE3uS4T +TTto8FTIh c3mndYcqoa+LDb5N ZSWVAXdf1R V+cW3ygWrcSmlijo eereNOhavB ooMfgf1txL2a5g0O 13w59NONwr 0KfYVgV0S1k3cd5r w8dF0iRbnE DDdn3iydeXGeLklK 7gvixWSz2v UE+gh2w6MuZjmexq 9PNrXgKpb6 Vc3TJXj1sllKB72Y 0Co8zL03b7 K0r3Xxk1VIYpcVb5 CnaSeTIquJ f65Q/2yI7E0a31Se panJ0RD726 hkWHnDdhdmD8oDLl Li7/3MLzmt XTo4NpF0k+bD4ebF khhk4gBtAe GUPsNg2kKZ39uaJP 4HTSA8f9X1 nCcypQfiBwoF39/0 drn2JgkBan wt8T1yEr9HVLzlA1 nz5aYYDrL4 ZTHQ2g0ejwwiR7o+ AFFoMMlTbd O4UKsrDeM4r6TZVS 4aIlAjjh50 8rAkvcLtotup9W42 CthJdj69aw gIi97Eah8rH1Dlw6 Umulst9C6y 8tyS3A/vhyxwBDv7 5+qUX8kDi8 ZB0iD0cVdjUj+4F3 l615tU+txL lbsKkf+HfAHpYAN6 vIm5RBBIyn 9l7IP5KabUx+Rr1g 2AF5D3W5m8 mPRVcHsKVLpS+cbW 8pV3aVhCL5 BDy7dZ7e7UHSiQ65 zZnYOupuVt jpZqfXkVt5FGx8WE 1kN+u4JMpN 785N6A4BW2VAp+x3 oliaH9DuNO 8fvZgiu3VV8XnMcB g8yzhNKujf GY4xgz7nhzMjBYpu ndp2aZu+yJ tFF0cI59X9T/yRwV jkVToZhNW/ soIWPZ80F/1nuJoA Ki8+x9UEUE HTidn4QjumOMm+Pf ikAUH7St83 62fOU3fIazbsk+Sp vvqUyGHH01 g76C8Ioj0U94e4KD I7axAci+m1 I6RgJ9x9xHaLAfum kygwlv3UzV 13ev3nQq6FpQ3IMC 3SLA8bs8Bj ZWFtDQplbmRvYmoN CjMzIDAgb2 TfPJfwTAr8GAooMV QdL1T2iNOc GATxKO7VVRLtUW3C YXJlbnQgMy AwIFINCiAgICAvUm Wnf4DgZ9Nx IDIgMCBSDQogICAg S75cRNkaCj 94IFswIDAgNjEyID d4Dp1HWqNx CPLiT16biANqvSBm MzIgMCBSDQ hfMVYgP5dhb5QeXD f6TP8UHN5U jgLcd5CjnlJqN1qb N1QQSR4IPT EyM8RYK5CoN9cvTt Rms5KuX7za BvZvy7RuGf1DDuPu Vg0LKkKoVU 2tiz8WTcMlKJEbKo oNCiAgPDwv HioqjHYdGK9MhLV7 RTPlM81bCY GyJQChQ7DxXAA4Ze Q+Mf1ANJYv xFTqNY8PFciY7Zen O6aTAc9+Vf sv9rCKGlWXooSizJ oDDrALNjEm rx9HnEC5HV32XbcC y/AdT8QKAW pABnKDsA3xoHd8md E//UviQV8u C6H//Vm5mUsLnxn+ 7p0PUinDvz U//yEepjn2/bSHj2 zSw+dub5nN C2GUNd126uxqQOth xVPx7+44vf iSf3l0V2yWk6o9wu A5enPJ8drB 8V+HcTSNl2/fit39 NQyvN7uZCB j+0ZGfg++ORfedJa SyxPgyfzgT ynfFtgodMZ6+Gr8W 49+FlMVr+f GSJqP3cPonMYtvXH oio4S+uaJv VaEHm5Ro1lS0ueO4 6EPIzyWZml X8e0CLEH23yt6LMX s2UaiobdZf w6FMsisYY26IwCeA OV0LffUB+m Px/imOIEXuorUjuK 6txHZo+QXd 51W7A2RgvswZnqPv 6v9wn9f8fT P329I9OGeZmjXbYH 1tikMsRDV5 pR12HFVezknzI+xV jWTlFFIPXT h96uRhN8hsfXKF1F i8RcQxsgoa uZTzdWlCitlFojot 1jV7OujLUQ pGZYnpm3/rhRV+Xd C4fn6O9XxA +hKyiFOnnkV2S/hd O+ponv74vQ VPnhahZRlicuiOY4 IXRn2lZ5mo 7Gtg0Uq60Bz0dL7d 4KvN5wgzaG +v+hmbFOlBX50TPn pdN2cv/3DQ 4cEh8t7+CduYN5KW sEPrgQvxLM QHH9RHZQEa6Vo3cO t3mM+S2BDb D2Zt0TGUxa+KchzH V6HYnMY3IR 7jf9yYRokLRdb9ch p8YraQKMS/ Aio3UyVfU82gSIt1 6pL595weaE LWoNiMUcz3byhFG8 nlyhzLDTxV +iNdvxFdvxlZozqF 1kGNLfUEvU nX+oQmzRQSYgVJG1 T3ZyYUVdY9 0KlVrWXbjSwskFau 8WC4cJMeri LKTxAYpi0Q+o0R4Q +FDPITaf12 4N64+3v9IN8wrNps d5q1nzUZiL AaehSFkmVvTpBWqI UpCFQunQqZ ZGLEnVyrphXXMA7T QszHqJxTxM BAeA86Rqb8Oo9MkB oRoaDWO0Xz 5xRqkoXSATa7Gvrd qU04yDAFne vJwWenQffzN7Rav8 7cFUP8Shjr s7Poy7VXJu3tm1QF dgNnFUiXro n7RTYwc+bpMJJRx2 Wl42dG6+ex 1g/KWMtKfSYqM+Pv mkWvUZoJUi xH5m4QwKyTkjcdsv lVuEmt7eKA l4EOUpmlWokGlzKL 4iZn+QJ7MC X4UOl3GDHyvPOwdC uRML235o96 wXIy7N3Ps5NEAKUx B1xm/6yzPg rRlYQ1T2fxDpCK08 Rte0f0WwWr +dJRDXpIEPs/K8Fy 9MNXgt/mvb aeCDW55WqOXiECfq HhLEUcCWAl 6vYu2JV00loX6lTz pO3DtY1tbz BSPQMipcbTo8KQhi 2zUed6KDbM HKoIGrxgHbFGapm9 BEPsqIiFRB h/xV4JuBYHM6f8XI JbYMJ2nXFY LIzbQuqvbBLkl3EU vEnMMvK7AR 6HNLbCihNuVJDVcK ClDLHjVPYq 09DSfAyLab2QLY// BrPcynjMUX YLD3PYsmdWrm7mxD Oz16GFFJVo SsnL56LI0NXaTYNQ Qtd5geo3kW xknNdoZ9zUD0UpAU GnjyZYqGmj GpTIWdJktsLdJxbf 0tNn1Tst4y 6CnNc4cTRVTeCAU0 V4w6nKRkjV 0bFhz4GZ/q7qDXV/ 04P1x98txh DP3BfpqnAhlHNkLX kD36VIr3K0 ZjeLJ5Rt0lvSwcCa yIBDQs7PF8 E7jDRBLSW7A36Jza 2kwA5SHlRx Zh9Cr1OgehwV2tQu OYTwUl7hH3 MBYabL6CseyeK1Vc Cze8rXREAx dZnSo3qZR25N7ygb tBZtxD+g1X GB8QIaKzugZPE2yO R7qMRnO+J8 FbpK3URe/QnNCE+p nYA5yzDlVR SN5rkYJUOMQq5rHK s9lhk0r4iL QFPYYFF5Wi1ixEZ+ 5zNpONFDK6 8824+cDKQH3DKkQx n2pQcRTL1q EWXifP/kYWSW9Wi0 FrsGOW3Ewh aJyPnfxSdX5dOWPT oGhxSHdXha TT9STHcx0yzz1ZJQ pnZI1DpOgm zrpZPLFAJFvj46+V KNA/lnd+5G KTVomabKigGeOX5o SCBJNQy83K M2DkN5+qgfqrCJEE U2HVATaTL6 zAtR1vIyPX3I/9mD PsHMzFikim Ce8xJp9NtxYVfoFc eYmtajD2qH mg+xNkh13wf4/4JW cf2RPpjVi3 QA1khfAkQuJYFOCP GtuRrIfD7C DIelIRwLoJPjBAFv PA/K0V6DGA zGa7HXWSZGd6NoXu ZKHHirxJ68 oOBwFflzPJJJP3I9 4JutbeyKCR dGjqu0t7dRiWPj+0 EJGI8s+cFc cgcl0FCbKV3LZ6j5 AazJwfP36v DIrhGhOyTPuZuCtp xn6rjvNnzD YiDE5IEt9rAAVuJm xpUWLNKYOz IS9FanqCgfvItmlQ FbwTm8ToOs O2LKfFXCn+jiyGb8 gHbqqd3dko DSeVZTpPsxLoBLK9 IvYh315F5i 21XMKcgpkP7jDlbg 8Fu4+M5Dmw Khz9bNDpox1T06nS BEj2vThTmv Ryh8BO0f+J1w0eJq +X2gjjO4Hx 1WT/zdHormz8k/Dy FDOfp0cJgE qZODx+LSGIIdSlUh NPb4n2ZPPi LgaVH2QvElnlW1ta y+012smsCg O6Vwq1IlPRVHYmZU jW6IIoxf33 tf3KMG1f/j+ewqM8 09HZ75Rqha xKdXgSP+vO23myt6 4dSgXcdLB1 cl5ogo5URLm8QW2y X2yHw13Cug TbDuEl4iArrloa+G 7ublqwEr+f wPp0JhnsClwlvTP+ 3gRaWrAe+t poxIKQQJOUDF5V+u zqsY5m66N7 di/Uxw1laOdoXvA0 nfvc4B6VOR K3/S8DwU0QvPhl9Z WbN1nQuJGU aT9sZoxe2irCJxhT aZuIujpXlN Bo5Qp1t/GN3uP3aN XqsKbiPw1W Ys5dGppDYD5OxrC7 +4HU/MutNj 2zCf8zC7IPkE/aph 60G2xVW1yn sebAibjaznzPYnrX bHTICmjoNR dLk9j1F0rRVzNomD BcrJvXKzC6 DGOrq+XifxW+m7nd CgtmqUWlvJ RY2vuO7Z0o8RRgvd wPYFBoXD9d hYGad1o0slqppVm9 Du0A4ecsHJ 86LY/dpAgifPKi2I iHUCnfmP+7 02QqR0MOhqx9oova wvQm9Bcvdr EPf49TL9BBkaHsBX F2vVcD2k6/ O8gU9zjmoGS/N1WQ 3D+kPwiIwd W84rn2oS+T3mBsje s5H0btRbe2 OnMPgJF54RvelT3+ uKfCTg6UFX 7b/p6xs8Kom/n8Yo rVYKjLZE5a TnysxBe+Z3eoVroJ /BKf847A/A N250AFaPb5PtXPZh Vw6Gg+FodN uaElDrY4tAzk7Eys LagFFqdTGE pwJY5d/OTO7kxuQV v+afl065rQ r0ih6gaJkkwQqG2f 8IXtc/EWmO +iOC1/my9+8leQr5 xh8+fIxW/a Gs4Gn5HOkAyTvQ0L wK1L9u0dsM aJZTjRja+6qU96XI /xI8dQ42EN xtszPtkCFbFS7GKc SmTR6lwl5P MzUgMCBvYmoNCiAg PDwNCiAgIC ZiNFodYS5HLApcDS yjKLArI8Yv ebQmvGVwITGbPh4Z FABpRI4YBY NvdXJjZXMgMiAwIF INCiAgICAv COZzwTGKg3ucSpTg JRT3RFRiBx nmIZ4CGWRuPF8Cj5 03IB64plLa NCAwIFINCiAgICAv S4KniJCnNF vjZ8IeO8UuPH6qwC OhMA8ilFVg I4XwI4KauqwcXHFQ QiAvSSBmYW xzZSAvSyBmYWxzZS A+Ji8KSCN+ Xu5BHZ9ur3GkIYqa IrErKD7rlu 9QDHY8UO5MeRv3DG NcM4JePNTo EZSmg9HxBJ9GOU6l pNxnJsM0HP 4+CLbcGCI7qwQyqS 4UIKMjXL2Y 20gS/n5V9x/mI6kC rNHolUulyk ISnuhaKZWk6lnSTs gsC97ycWsL Tbnqg9lJ8d9oBegk i3O17TN2j+ acp3tnf9gmTFCnz8 /Qls4mifZK 26kCvroG37ou43+J 1AAPlrto7W P8tTu2BAT9QPxvq/ C54LLW77Y4 qY1SghtulG4nNLX/ 14OLaBonUR 6nyeBy+TUv//VeR2 KmzFkojl0I KLhtBZZfgxcflfw9 +LDLST3iQG DJlYUA59QRneEXcm RJ4Idr0YcK /yGuAEiL1E8izD1x BCpp9v5pD7 TDwB1I3CxLoXrBWs zL77dBH41R 6rtGkupki4Gfd+x4 Rh+NKMhtTZ plnxHqvqLCwATyvm ajzJowzBkw CV9Xw3rl6onLWKMz ra0cOU1lqU PQ8kq+D0foRwLkin 8ff1+u8R9m 3US13giBNkipol4U pFQVynkzWn 3kqO9r5iGw1yYng2 edy0B2Vjt3 AmRu1qNrZBvVfvBY uQ+EOKXyfl +Xfcpg89NmqY2Mmy lAqqoOzzK+ YgVB4wLS9fRyc9/q iRU+rehZ74 6lvMqxvsSLOBfjKN kBszeH8rQ5 lPhJ7qB35wixOOEO 5fvFxAllFa Tq55brt6sa5kU/VF YYWOxPViBa lc0e28vLaIAXTi34 YiE+pbleiK u9t/Y8kC299ugQX4 N+0fhk7UnU +697SRldb5prAJRo J3AtTArf49 MT2FL90//dFydRfp FLuy38R6ng +tVYC+WtCjs7NG0O V6tg+ID+Iq jPD9Jwf/7Ta1fBwy iNvsXjQtPT go8/dAqH4LBcDD+a tpZr2vN5LP RwvhtdIvEKgJo8pX ksCq+91Uku sgQiAcFFunM7bakJ CFU673LQrW L7Ay68441VkZkJ1W V762jT42xq ZtSVeDcM8QIBsB4u lU2dJvfwjK bYZVSgX6orsf1p3f uDdpNyBSaR ZuScp6LmFtUHmPca LACjB23KRP xkCWZDSFpL6j9sfb k35wYDRoyT o6Ladz4MmNnTETjF BROm9r8b/R xt0si3Se4SHBBAaG 7IX3eKkzqi uDpRUD5nxPkEevlg W1U7nyYW9Z uUa6VnhvnSv0eBhu boDNiIWoX5 FMTyfzJ0a9mMoelh aQgVE8WEfG HdWMdRAwXj9PZw3X yJi865ymNJ I3P/FKm9aDsUNs5X zyJFm4SZiZ COlEjPC2iuKG0M7R DmIWXT3+iQ 0pKMe6R0eHaWy2d9 xlQEZogpnF 126jQvanxV3vP6go E+4AcHhln4 HDuvrGGLNtJNM50j bX2QxD3W3C dBrxIkpnufS5JRhR slujnTMH4G oiW1mDIWosDrVMJR uZ1OGhMmi4 6ziLtNz9S6MJMmdQ YvJ/QMqsPA SYOL9iUf9CV8wXge qObI+htP1D TxMdObHVWOyYH7O8 mIhfNOUxHx KR7QXC8ZE9+lbN/T AWXisjGbI7 23koxneLEaAi6Scg VnHPSExTw9 auX94kxh3Qo9OuMy 2W6rsS4rPT vP65DU0ilLusyAiK fpbJbeieVc AQfeopEVm4NzJNfh af3Lon/Y0P QofwTetB6iSmE6xV IL/3wcH7Zu Ozsj0z7Th2Tc3Jn0 nVEF83hGyR UarAI9Z/Ztf0cG/w /5m4eqg8Gx eKzT3uLHr95jzjws C3N5FRzuo4 Dv4iFJ4IR0fggKwR WF0v09sZJJ J+oOKDcKmVj5f/jf dTeB3H04Ae nqcfmCZSq9zkHN99 Vc5HSVLC3m l0jfjazgPshdqaYN Ngxf6qiVGE GK1oc4xE4VaZQfSr TnIozTNTLS Cl12yhbccvwuqlXG xdjJGM2IBn XzSlQxa7vIXYzIla W5L3YlE3U1 89RpV6pa+hILV15Y W1Ja6toMoO Qfg6aPapH1H/7z/X GrdM60Z+Lw 97zwMVDPd4LYQetw QAAj5QRddP NOcHCsgacrOKTBcw 52nsLiFKvO 40hR8b1IUQsRJAAv v8BTtn4ks+ uUux4DjxGn5l5mDS zszMk2sjX/ QeG2VLIx5HvauYOJ ARxQEv3NZu GsocV3AFUqIGloQN fNZHUvY4Yi kMtgWGxkfSnjTvL/ NfA1simf0E /Qd+ZN6r80nsIgDI c5tu035GCD kwKFOSr7hBm34MaG EAFkff002y dRHB9iL7eKhRRM27 B0BmXBHHto Xn7YrEiRRBSOWt5f 6Rw+MOxynN m2iX0H1vQzl1+48L mEVuuSesBw RkcVnxLgWjGWsMON c+q7n5K0OC MsTFys0OBTRXQBNH PWsqgr2DC+ 32jBqYs5DLrJhfg1 2iOKU+wBD6 FvUGOSBxFnRvs3c+ fL6iG6EV6P 6RtANyONwmsGNtD1 nHbGrPgRg+ 1hoDuGW94rrXOSvJ D6VF2mNKTl mKwugqZvb6+roDPT I3DhThp4Sy vpQZVeV4k2R8NdSQ I4m+lsGutF /1BBWEFdRHEirIHb J0BOccJChD jjbzkwryr8AqeQUw LKC40vx/bc spkrMHuFvC5MLteZ F1McSkMDm0 W+zLQYzudpnOTlew OnSs8F3LAq la+D6n8ZBo4Nh8O/ nBP6HdwsQJ rMK4wgo3kbWvzb3V 8q2Fh08j3u Ma8T80pnodXZGkTk KKuGcreooX PZBxUlzNtou6FXKK /vx6m6ZEA9 snzvpcDWYrLlbHvC A7T2W9KyCW lq7674Ubq2appRp7 Ff6NS7kbWf 9qkLU3s2lg0VItF7 jVZVdlslum AB14te8HL1Es5puJ a8n0H5D31A Vzt/L3GfCNB8I3lA B9a0giAWhf BveZvUX07tfZrqWt Lb+axIETaO eL5UaujGx9i22hE3 j2I6bdSiNg HJ4/B0vAcdV+UyLu 7gyZkP702I NvhW+e4hcPbOhQ+9 tqzAf/OzGH 4RC8GQjO6OHp74tb u9gOewoSiT gaogRbHs9tp3i/[place] KVTxL63NEu cdC7U+FrZdiFqMhS tNZvkjbinj 9pwClZwfnGx4V558 v7dCrRPVPT 0W1o7kxT6NqtkCZc CTdug1jNJE TtIg9YLK4iS0mlfr nvU0Y1vfJT ATRo5rzcXY/f7wrk DZo8Wq7+qv zVPZOk661tpLVSVi 4UGoLYi04V y43Lm3jcWcSnmmwc absDe+oL+O 6lWoBBXmtpeP70K1 wau/BMF3a+ 2ntpWmlC0nZFw86Y XuIZN5j4cs P5OP/wPhpvMDDQpl bmRzdHJlYW 7DTbUqRX4wlz8BEn cgMCBvYmoN CiAgPDwNCiAgICAv KHxoSW6UDH tkAYinFPCiN3Csvp VudCAzIDAg Xb0CIDZwKM3NXRMb dXJjZXMgMi AwIFINCiAgICAvTW UxwLZRz0si RdGkWWG1TMZaTxtt MM5SAAWrNW 4Bk751GG48hdWlUs AwIFINCiAg STXvD3BazTKcSUbb F5KjL3GgZW 3amFSoMD1cpJOtG5 PeH5Zhbusx ZVJHQiAvSSBmYWxz ZSAvSyBmYW xzZSA+Hc0ZZLK+Pg 5KFG1ia5Ob QYtcHFCmQI3wiy6P EGE9UN6YcY a7EXMiU7CvCTBfRP Fxi2NkWS6U DJ0lkQrdFgEwDS6+ HAmqRXK4hh HgvH1ITFMkAR4H82 YQf+9Mv8M9 JjNg6/VySGVuTs3B VvSnwqnp2W RWbzm5PRsDAxy9K/ GR6ylByB7R SgaqJgs59UEuzKo/ p9b0w5RP1s 2DMHf7j8PW6xwzBm OBxm9KO/4g 7ej29u7u+56q4d8c zeOnxh4fle 1ujyy06domZiZW6E u9l13/Vu/d Vhw2SzfxoBE+ytL6 6fwiX/7XYR EKusvg31D9y94Sr0 3QChTxxUdH xz41schppbmyW5i7 LhdfDkXou2 W7vRySO0cmgCO056 ZMi5qK0RWL JePfVXsX3XceZxYk 9MkZfTIvQL +ERuRJ+d2o5hEoOv 7qnyWI3gvH EYJ28Nf1AYHKKbgf 6z4PrCnFvy IiFxwBnBPvGzS2Qm cIZsh1rDpE NQZBmUseZFB59DBk R5a/xNuZJs Q9Vrs73qBS0vC+xj Mct3AhYexT 8iljoGWVNiMLd4I2 AqWsrgJdV4 EhFa6jMzbPLhSbT7 eQCnQpaFPQ m2BCCqoGP/uU37YC V9/zra0ycW 3nwLCtQ1FwxuWXyi s1vJM0jhYn 9FgKncRUMjd3uYYS wakVxc8Ws0 AoIhEn1Dh/mog858 KtCmLNt0+O 4E8ftyfDhBT4beig +mY8SCPCZb GkKyOxbVtBlebnVP FSEZn9QQ7w 7py8tof/MoyKmytP /hnEXuK3zz D7eVtql2MkqfvNSC UxwwKIOqBL 5ABoOQMWRmR0CKlV sZcjsSlals MxygrmUPDWfg5F5v tN0cTmct3t hNBmScNBNoVF2rTN SoNSoWjZk2 fpQb1TPSUT8vxF65 uAQZgFrjRM eDJ06WaZWvJbdzdG IzEExQ1RTF yb7sWnkWVWdqZgcX 12MUoFKveA Ov8rZzqwIqOjub2/ hYZCgQFTuV YpLoVxS0tr4nd3Yo xFqKKn1xiK akkR+4oiqGCC5Sxy QkvHjCgksb cG8rDsbab2MSDFh5 ooOxbgBATx 7p49iflIVDW7MveT siqafHbI4X eu37JQI84SEpnRmN 5+o8EmIdgV nQDVbjoFx9OG3FIg HQZJHYUxvD AUbPvEgdphLyGa9Z zXsph8hYIs 8sh3q8BkfpUUM8NR s8XZ1CJKYb d5FhJh/WX7E0TCLO 8s+7OIjbcI balWMjcmzdOwx8QJ s0XxWRQCXQ sdDTD5oMDVHzSs8Z KshgMtZYg1 t8wx6MDYhpbAOOsO ovL+PcxyM9 Ieu9Bazi5IyTPm6m SPsqAOjYwT N1WUJsWyKNhEHtAb wQ6lWDTeji 1W0Cx1Rhy+WCBmpR ZlQqeYfrIC YqHJHUw8eBwdQ7Jy ZQmGgzGAcD NPZxA2Otng2lJQNM ilDZENYSRm OUXAmMFdpwNek6Ub imxQGphsoW ZAw7mDm3lkniqlzR YNwwsPPbhX M6SnvxI1fTRji0q6 HjXFhG6KOn A76W7t5MbcEz/2rS qW8Gl/DhUB I7uCEXrleK1RM0gG OOqfvH1VZt kTvwX95l40QpemeQ XYGmN5urIC gYmdHrEBcPtTpyuB JbzphYgL16 tfymlPmiZRUFy0UX WgDiY87+BT gFbr+XjGT1iK3vOl zv0NTGza/l Y7OSZ9WaX4cjPFsx gnyWCUDneE eVq+NDwteNt7Sj7I 8t4H9RW0RV 6DTukE7Gd+q2quvS kaN9P8flOJ LE2MU/LD3ML7F8Zr FTeb/qUT/U ZjSErt8FEbZcpEyA kGHH+yCz7s WgNkks2mwQsK2tQf eLPjK608+K E78wIt/fCCJJIAUq B6JbYrH+oc gXj03UMb/NHXJhsW scoBeoYFBa 2jtdBttGZoloZlWJ BnAVanhqVl WRhO9LEcDZxC9mPa NkXXeWxoUu m3KUus71rM/Ex/f1 eoxGRIdFSV 52sObRypE3JzV3qh oBFfzLVY5q RCaJtHHHhrQrzkWN q+Hfyxp6mw s91ZNFqwIbNqhCuv M7iZMdQeeC T5B2X5Huo6G46x3O z8Mzvt1iLM DeTGqAYOlcPj8FzM 1T7yJ1fLAR sKgh9X2Ci1QQhlYV AX1okQ9AgO CDxR+IabHTrXMXMk 6TfYCZfNtO 2I2uXoguTqoqGRvp QnRIftGqRg sl14giATpn3m5zAx lKdsqtJzKj mf49rjl3RmC4yz2q R1mHRb75oa iYxWnSK8hZoRtoXY MPlHgQ8EWa FdJ99ku1zTT7ZxBK 1TPG/AY0+d 6fRUy7zCncj2gEWt Q1Q4hOpMRP 8HAMF4NpyqbbqVUQ 9aV1pO6VuY TSWHDV+fwu4pWD8x WJTDuwNMUV O9liOyfXCyEcCO1o HeoOX+v8j6 LMxtdOh0nbSOF9sQ Gxj5O98pRw 1Qn2KEde0aRRNqvd XPOmlMmCdr rRY5i3/g64Anc0rn 7/uehH8ZVf 5VO8PQJI3iMQeuoE bkqf02codu bipYUIznxT98ffl9 yrCgrlr1Te qdUjoZueuXTtFbSb w3w37ZqHbz pWnZvMgONimbondv cNcWkpTf4P Wt1Go84xP9qzy42o Egcr75jBGo 9jSkZBnJTZd78sCx A0p6FZzYRW TqZEzrjC1Vt/SCmb wS8ugB5Bxc q4BzbtBgJ3nAUPIk rnEc0u5on0 sHx+6dl6Yl1MpQ0h 0C07Ze1ZOc PlDuzE0ffAptfgAL uAFRhxZ5lU XZaiDMjtbsWMFukd MZCzuksysq lSFCEIpY9nKubA3M ZtbsDNKji5 tQgKosaFKpriqKjw 2SYCxIxn5M 8Tq7xu5+cgR9YTkN 0+S78O8uVV KBEHISrlTM7qq4Fj cgzjusl4pS CcrAzz42q5ggvq4h BpVTEgnVTG 20Qm1SxQUj3jV8fy OabmFsGY3d oOdvrj3pk6F/JXaP 2+1989KVNF 9SoYjZI2BtFDK3p4 F2I+ZmM+FK baGqW/zXbfsa5tcJ OOsetYwXYn ru6MWrjvBxtQDKU9 EsVtwq9Qot xkOHlJa7/tdpg5R9 OOi23/UOjb uDtIOqKoNNs+D7O7 sqHp49WEaR 8Jm3hK2PuPcQu/Df x5fB24LKg8 8gOoM3lQ1soc127e Z1osik1pYW TmljqLdqytjr3MnI cr1K8hqJGH JW1qmRFekiLMyK19 nXhVDzh4Qp NE9Rl73Wu9NHlxc5 Is4WeoOTm2 ORbI8rpRc+6Jc57A 8QThbBxb+T hKE/zYXrjZi5Sfnu 6R3IPnBnKO C7tbZsfX6LRA0kx5 JqDQozOSAw LU4ssg7LBWW7MT2S IDZeEZ5AeC UcB0AnV4CGXhLpNK MvQBTwPA53 IDMgMCBSDQogICAg A7Qng308bp HhfwKhHPXxTn3VQY KyBJ4VTVBh YUJveCBbMCAwIDYx KxV8TGIzOB gtPVOnN4IrflNjlm XsLUQ6XWPw Rz5SUFChIL8Umk02 zTQ9BCBpEu AvVHJhbnNwYXJlbm K2OU8EWlPq HUQ1lOPsKtyWAG4M IGZhbHNlIC 4EVZBtwLCnPX5+DQ ogID4+DQpl bmRvYmoNCjQwIDAg h7EfNKhaFA z9Q6BshDQpzmDdJt xhdGVEZWNv LSFjI5hajxr6lXC9 OTQ+Pg0KIC QcrQUyZO9TMwvBaH uhpwnkZX2h sH/xOui9fQyAR2LH STv00uzurc P7yU8wWbJl4mxP88 4LsK/aF062 cMp6q5EML9z0SL3G 4iEpiqINIH /rxqu9JZUX/y2Hjm uUuzSz67PR zDSWYquhIrQaa+00 E2dYS1YzM7 2dZUF/tGymePpM8K ea85NujJMV GAdZmMRa7+U5y/91 yYMBT4+PoX T3afwJ0qPYuykhgk 8Z9vUCH0th ygy9gAtpcPzw8YS3 E/zBnr8P/l qW3FmGyLJCjVUvtU DAVok+IBTj zAB6WylxPaRQxeRh W7vDxuXrMG LRBOtJC+hULjzHog EmmUhYbXuE 0LxAnltFcinVmNWe UJaNLIA1CQ c+7J1OBAhAUH2jcu LTJyE8Xdb9 ppflyCXeg2jn38ZS 7GgGrQ9DH5 MkbLFR4lwFztQxgZ 13z6XQzzYR pbC6qqKRfqeQ+1Ui vUwKXUILQw NUN3H9C9fPARGK7b 5a9OK9Q9qH +hV1TmkMFYmJTDLN yG9DFvfUAt aF45U/2pZc5hw4iI yITh1wii5D PDyJXDb2Qqod6YhV J5xH8di60k XaXlLrpuNAwzCNok i2knOMSxe8 VmpvmsxzmfJIBaNh 1ieI0Cerr+ nbBphD4YEV3bQCv1 G61On0KU6I +Q5jX1n3kT/rMaqo RYZjrQyA+r GBn3TtATqDTc+0Kn NnjJMuwPAH KiEZvsSP9wXYYOyK FlVWxhhmhK IhMadoHVDmZZTbWK 9er4I2WvCh lCebxICyPaHcfCbj jmWVWqrIyu 8pvoaW6FysdcCqqQ vVrV6fpCl/ PMVbgbY3lWBO+y+u oJesisRa6o pFiVe1VG6wGPkPYd XldtCjK50Y AXo1KikhrnzUk7W8 JvbgnHumRB /7CIw9FCcWIXVV+I bXiWjMKy8h 1m2j+QlrVTpKMjMY 2ogVsGBha1 xUUMu4W+6MUpCUgq 9RYF3O7uvj PZtjRfsC9D1K/8me Uqbz3LAiJW WKYbC688Iaq1Fy7g 3aoc0aZwXd SXStQvFNAh/j5DWG jtAxtLEn0G 5MbMHUtFj+lQQ/8h a0JXq/huh5 p576TGgtNOxzh3bU iOH8LVZTK2 NPwcvPtyQM1TBu00 5bWMFhuGMc 3/DOsmUVCbKQxxlM Yc8Wiip2wp Rob/ZS3ccPNVGM7w KyhyPGXOf4 NyrzsfSQ3SiT1hex tlIWXqizjq hN4xUW6MrVgOGqne tLsvook/jK rqdpKrFRqooElh2S 3zIl3DKPHC sExrg5QD+6IY6VR0 MKEEGvBuVr CieLt+S7mG9tnNnV 20tPtlFf+V q7zla+3+YvnDlbqz jxOVLYbteU 4mRzJ3owgCCGCeSx AMK7bgGdfO 5FUT8mu2EiTMv8IA EgIY9jtc0I JME4ON5CZPHiCF8X sTKzL2TwF8 UNCiAgICAvUGFyZW 50IDMgMCBS UPmbGKIdG6Kgo457 cmNlcyAyID RbMa6OEEXzMP5IMU RpYUJveCBb TEBkHVAhOnF9JSSb DQogICAgL0 NvbnRlbnRzIDQwID YlBk5DGNGy AK5Csl69aNC8KKEw UyAvVHJhbn KpBQXjlaS0KK2PKd EgLNV6uHTd PznYEX8FRZHwmKHu OS2LXTGsxW NlID4+DQogID4+DQ plbmRvYmoN AtYePKQhj2SnFYbi IFsgNzUwID c7KFWeZiqxFpBeBU H2LFT7JWQy EXG5SFe2LQY2SfZv UsX3XKIcOk ShEcGeVwi7XLR3WH AyNzggMzMz MAS3RVMlCcxzJWS0 LJH7ToK3KO XhUIZ4KYT6BvA5CP SjALA1KPY4 XpZ7QBPmBBN5BBBd MyAzMzMgNT x2CW0GVQS3LWSqOQ k0TYDgQOP1 NzUgNzIyIDcyMiA3 MjIgNzIyID Y2PrJ0AKLbBxk7CD cyMiAyNzgg KDA1BWxeIwE0JCIy ODMzIDcyMi X3YugzEyE7UDc5NZ C7SzMyMqW0 ZCBrHLC8YiJxBqH7 MXp9JNY4Dt jsItH0NUMfZUDUPg AgMzMzIDI3 RZIyBzSwLBu4TIR3 NiAzMzMgNT X0VDIsMIY8BZQoKq DkKZG4MbWd MzMgNjExIDYxMSAy ZreiAor4UG P0NsZmPpzaLFl4FT XcCIR9GCZh NjExIDYxMSAzODkg RVL2ZZIfBd X7FVOsJFD0RBf6HW J1PIImSJyu ULQ4FiT9MCWiJjm6 ICA0SYMvJI meMPk7XAf8WQY6UN AgNzUwIDc1 PCT1GNLeKmNdPWb8 BKY9AGOhRm UnRMc2IKL0DEKuQx AhAUb4QEQ5 WOOcJlVoFKl2VXQ9 NTAgNzUwID b3NIN3DNUoKuClRY v3HGP0COTd ZqQrOT6MBQD7VPPc GcGzBKl6KW F9TPIkKuUqIJb1UQ K2GNXhLuAs KXt4QLDeBssvFjUg ZNX7RhP9YZ QmECT9MHF0WzTeJY JpTMR9MHDc QeZ6NorgNondWYW6 TlW7BJAwZe QrNWmsIhW7ZHDvKT KyJCG6KORx MzMgMzMzIDMzMyAN LdBdKZm2IM K6TeScClWcPvNfLO MzMyAzNjUg QHF2XExgSKV8IcQo DAF5ELNgTU N2ItQlQdFvTJapIg D9PwJpOmLg IDcyMiAxMDAwIDcy SvE3EiulPp P0SLB1DyA2KcrtTe i6RXC1RFHa GwwpDzk6INsyKvV6 FfJcYjy3MT 4UORO6LyniYxm7YO z0RZB9Nmtj ICy8AXe7EHL0YuMd NzIyIDcyMi R9XsXqTlH0IEW6Px B6GBJqPKY4 OPE9AnE7KEDjTYE6 WPY5RuZ1VP XoAMe8NZP1TnR3CN WwQIT3UMW0 WtF2OYDsUfv8VKS4 OCAyNzggMj n0TFEqZRDHSeQfOu ExIDYxMSA2 MTEgNjExIDYxMSA2 OXVqJXJ0WM FeCOY4BQWhNmDfQN QyGRQ8YDQf TJS8XKLoHBJ3ZILc XSANCmVuZG 6sep9FIIZoIWCxYn oNCiAgPDwN GdSySRGcMWlwPG3I r003VMZpH8 FhtLInfx4CADViXD 7Uv139YxQo HK7TtxkngDzUt1wz DQogICAgL0 RsG5EexZI8GIGrZ9 ZoBXLcU3f4 XJyyKG0GSBAfMZ85 TB9pWWYFOm TdCHLzSeuwO0QsRi INCiAgICAv Bz4snTFPg7rhOoIg LTIxMiAxMD BoJMnkDN8RNeXbAK AvSXRhbGlj VJ7jqFUeFH2AkHEx ViAwDQogID 4+DQplbmRvYmoNCj D8ENOxd1Cq WUobKHh3IZgcFTVo R2J6aHCmSw 1toP1DsKV6kOJoV0 RydWVUeXBl Y8Jdj6WSd893A5Sc aWFsLEJvbG ClPW0ml4OtbwivH2 uxIB1jhSAv I26ibI7qCMloCTUd Y7ZuvyU8O9 kuacYrGQ1NADI5F6 hhciAyNTUN XhBfIDHfF8vlnLia IDQyIDAgUg 0XHUPnWZ1Pl638CN QyP1JgaNCf haF0OpUtQLYTTnPl Jf1PHqSrRA 3jla1FQAIoAIWyTp oNCiAgWyA3 QXPyXhLgXQV3CIGg EsmtTrA8EC Q6NvZ9MRFgXJv7XH Y6IrRpSHYg MzMzIDMzMyAzODkg XMs5XJV2LK EqSbLaNcn0FMQ5GM O5SQKdBGS6 BRE3ByF6ZPJuWAI2 EKM3PbB3MS GzWFQ2YGC7TxI3VD GtOsq9YTY8 UUT1SHVgYLdjQPG6 CCW5LXInRA J1RCJsNPPxJkP7RY S2CnM9VeVk WhVtPAN2AwT6NMKi Cqd1TOwiKs DtXvrzBGOnFTU8Aq K8ACAcNSHn QNjkCkO2WeujHzY6 EOy8TUP3Ai MhTuI2ZOVcDST8Iq ZtJvU1WJv3 IEI5DwfySbB9UVKu MSANCiAgMj g3KNE2CESsQcvrNP X2WTB8ZiJm CxReJFA2BHZ6ZiW4 LJIyKAI9SS B9QgZrLxyhSLM7EE T7QyGzAhRg MjIyIDUwMCAyMjIg KIJiLNW8Fl W7ULAmBXW5EWN1Ud AzMzMgNTAw MLC9EPW7PXSdTBBd OUukSsP2NN ElQYlbQDKzQES3CS CdZrK8EQM8 LBScFhZdDZe0ZEk6 LFK2EPMuJu BpJMq4MXF8PPLmYv ReZDw8GGD6 DHTyGbFxDHp8YHN1 NTAgNzUwID l5JXX4IXBpTbRcSQ q7JVK3NPIp UtRqIRk0EIG2OHWb UrOqBKs1YX H4DEEwEgGjMX4FSZ X0LTIxQtRq RZw3LVT9ITMzUdUs YKz8BRO7XZ VwVgNpOWu0IZGwFf ggMzMzIDU1 CeP6UQAbFTR5LJV3 NiAyNjAgNT D8OYOyHgF9LxggWy exCVC2YqC2 ODQgMzMzIDczNyA1 NTIgNDAwID Y8ZHVtGuQhYcHyMG MzMyANCiAg DXz3ODOoYfXnEoYw MzMzIDMzMy AzNzRkGPY7LJhnHF U9CyEtHEW7 QUPkEOU9KzcpLvQ1 FDW8CjA5Bn tjKvL1HTK9CxVcCV AwIDcyMiA2 CqfmRdH5PLN6TsR9 ZatkTuo8CH R7EISbMiniVel2OC hbKfC6BiVw Bzh3LL8NPUG7Vnsn Qvb2SSo9DE I7CrcuLBv1UFf6UN F1EbBuNaGd FLgfXzH8TnUhAcL7 NYM0FqH7GC RaSPH1EBN4SgM8UG HkXMB2DLF7 SoQ1SMUfACw8UWRl OKS0YAZcIO K9YBU1TdT7EQQyEx j4OWX4BEYk JdpqKis5VBT3VoSG TpBtTGP9FP W5KlP3CCCvLZZ5EX B6WaS9OHCy ADW9IRBdBBW7EDNr JKU5FWC4Wk W4CZByYIIgTMC5Kc O8YSBcRFKN PwCeGD3jng4SFXRj MCBvYmoNCi AgPDwNCiAgICAvVH lvRP1Hn101 LCJtM0TiqSDhbq1M TVFdWX5Dq3 16KcGlMV9RvavrzU 9OVOZrHJ5O v1QetaLzYFR5O6Br cEhlaWdodC L9ICKcJWCnJ7CdqG AtMjEyDQog ODUgN4CaAZspWPOa DQogICAgL0 QdtvDEAu92JAviIR 0yMTIgMTAx VJE7RYZpLTuaNNSo L4n4BVihC3 KxG6nfXAOqB4EraG YrTQ6PXSA+ Zc5ZNC9cm6BhBAt0 ZkZeCR9xoa 2RLPT2UJ4WOHJpHX 5FfLUlO2Go hkOsR0WizRcuEF9R cnVlVHlwZS 1FNWErIp9tfS1Bvd zfpZ8HjmCz WMucOl0SpL8OxvCl HU9ah4Ysxg cNCiAgICAvRmlyc3 RDaGFyIDMw U7roh9SNtUDjFMV7 JJ1ASHJeUW 2WvAI5jWYqDLUeYS BSDQogICAg O8YvxbLCNQQpvfue uC6mMMC0BI SpIe2IVBJ+Pg0KZW 1wx9DcTDh8 WBNmDK1viu0GCTU2 XI8DaKz6WR SsW2RtYPDmQHKpl6 ByRQ9RXP5r qUmmAVTuKQxxV7fj cyt7iNVbUu QyNDg+Nk4FNZCnjZ IgFR5KEprI 9ClFnWXQ3zcrqbb8 nfNCJNFS4p AkLAECQWSVNNlYwh 6WBFECBGQR ODQAM9MXifqe9vCf IuOCoNIJiA MkF0IJOtYkZLKqZV XFwWUcGMdl OAw401C87cL5HTP+ +Z//ef7n68 34Bq5agh5r5rSuqI OCiBoEiaJ3 e7WOoYRV2XwrvbKx AuNsnDE3bA cFAI8epKckWn6Nt1 24KqwKBiU3 p1w/z3/3sWVfwN+T yBw/97qpc8 /78T2NmTEJAm020i A6Hsq8wZ0p PwNvuI1aqeh2NyX/ sfdWomaXEA BRvnfpRv9p2RgFrY QIxJfOnVM+ eyL9cUNBkk9Y4b43 +5639+TA/y ihdGdlGTNkATS3uZ L6HWys4d5D 3q1c/sS6tNG4r/cm e1Xshs/adm B28tM7bC0ib4ebXf a4Oe5u5PuJ gKenX+0btl0ch1o6 dZGjMnS7t5 gYUzuap3d+tJ88JC uCPcfMTA6b /I7McwHKXfOZwBjy PK6z4Ww4QG lEto6W8gkGDep/4j u0ZXCGekUo 6FnaRa+RB4n7sNeC WbmMvjD5uu snzRzkFMq4EuCYmQ S+BsIfEInW NpT+XRiHKlSAh3J4 h4zBCWmZoq 8Mv35IwhMUdIxVwh yQu6hdELAS kth8xl4VynDDpeii pjae8WjWgb 28eM8yCqpdiWLYnN NaDp8JyI5q f7Y+sB5C2KWryK/F fVHPUxClVI EdHcbH8ybM4UZ0wt oJEqTSDZBB w4G8LNjNWvd6Zf7Z CeIWLRe5/N ZMNq9CNgxtQyLtJb 9G3kXJlYtF iOFnM1y8uasFBGjQ LH4Wd1Y+R+ +HkvSO98OrFQHIBl yY22wFF4Bp dbtK6uZXxCKWygIq vlPvGb797h D5GIN8DTwECR1aT2 pmFW1Kxwxq eQX1EyAyP3BFbjX+ s9yv5XOBHm GGvcdWwL5x0htoMR QN9CPhuJ/n sTJnirTAcI4oEkLZ qO/MoU2fqG R9t4wsaVUjuzU+ym tCc5ObdNSZ e7tqYZdERURd+kW5 +G42D3wpp+ VE+BQ0EQzDm8c/yz SXm12dgmjJ tJl+FHGipxgpLhfT yC5dttlVqU WAqYnaI8bftfke4T Cncpvp6df3 K36lsYxdTJlg1hP/ qC2u/X3tH2 t/tLKsJTQS/eF2SP 6sikDw5zIG 9B6+U1NibhOVMNK1 /PUMpPG217 tQrBQbxEbxtNiGUt 3Lm3gpesoc f8QHfywYCusZEJsz 11D6Eq0lI2 QUw8C2jjm/Jk9qLb TWWobWXeur yRkvFFIR2J07w9o+ 2LS4C1eLxs 4yVhmPGhuNzcYrxg ovwti8HaX+ olo7Mxnk+aiWapfV oqbawx6pqD LarJJr4SUDw7LtYx V9Ohq4AEmz WbdKcPr5NuGpUW2z LIQfIpeB66 gVhYz7zSajgWY2Ig ESauldcRwy D8KuDqkHcyfWuwGu vVJOldfKe+ V8gyo8K/6kebQGWo eZq6AYFdbW oRV6psfR6gsuhD3m /FO0JSgUS7 3ozHwrSs19xr9v7U I5kxm6bF4+ GR7gBGAjUw81i14Y 2kUsmlxK74 SZJ65Jr6qQNR61Zo d0z9yR3Wm8 3OO6OvhRIAx698D5 7Yk8C6tVQ+ WVvBF2vJWDiONgex fjQWmEZ1V5 2cZYYPaRfcQwOqGn o65fk4/KH2 WkjxrdIWN5T4p8vk Ob6ZtA+up7 8Gk3QncwTrS9gNan FsrjZkOqFi H0npdJwG58ozH4rq 34MUv4H/SB Hi1aiG/aB3iY3QSe 0u8RXhrPAk sahVaXhoR2gHbjG+ JevU26KIpV XhgtssS/UXe1MRg3 yQd7ZK8xBa JP6S8Z4UO5W1TfV9 O8AKjdIp4h MxIe1hsHqF4UfTSA ztArZVOxja T+IC8sd9vrZSEY9H Ws7Kzje+V7 KZ0L4pI0rbPBvA7v b1QF0gdQFF T4RlUutFKjxV3tS3 1i/Y9mRMxe YPHjR2VamkZc5MWR 26BVJkCnbc by2rd30E8xltKZ1I or0JlyaYRZ 1vtocwCLW8vYYN6U WuwgbTNHyx q1zkcszDZqmS+vHU XjrSdpjXUV HSDhI17dU8IageFE uwW91G6mms Rxg3nwwwYB+UgMMQ bwKnJT2sXz 4OeaWY22h84E16uH 5w6Q2fi0+h kvUqX+LhVRtrXCOo vt9T6sab5T psF0FG/3g9TrWVnS 3WqHySqrQJ uL9/6CXuhGEE8TEd Ssr9v89gKx CGNI9pCmeDXmMzfx zTRVjrLmaV LsC8Hs5jSrLGYp71 F/ggbU5ww7 o4Z8A6VrqZS/ZWtq UK9Ehc2TUZ 5tL3VS5phcnxtccv Q80uWhPX0A pNa+IeOvj1zODwjZ 3ccXrNECW+ Mxu3X2k0G8tTWd7b RB4albP4AA 1Qle2ubpeImaDgKR Z6NohBpRVA Qnx/qKOdQpkEJR2I pqKdV+X2z/ jezo4wKVvpEnXdl8 OPRl7YwBOg vQcGAicDfwKGAqPg 7AR8tP2LMK nGdo1cL7mj3PwFY1 zBdrhEp2iw TVkn6NdaCllmQUhG p8pA5iRutz yQ16ajmWbB3uxEk3 c22b6mJfpM D5ifinj9vQFD/JOHN WEjNUU51QO XYb555I7WyRLC61B nVq5uC792u S2NZ4NKqRKjdRl4s GRiyMyCn0b mAUUBgn81S/lN3aM /GIp3lKNv/ YfLD+mYlSzSVRy4a uJ/MYog1w6 htPNKb6KynCByNYN KY/g+zG+H8 mPKEb+bUTGnJLn1J iwCzgOeORf 1SzXU5UTwc5jszuh /BDPWPkBXu sDPGPk+3C9L9+HaH +l9uWav3ai ZGQ6Dl+d35aA2Ycv mmfVyLeqT7 PCq3sWE0GWyyy7oq 7UTWtdndYV 3S+fxb2SF598dAw/ w7e+fxf5No PDNYkvYqfewk8YHK QCcwETrnfg zmwzoRrZ2QRUOI/D Mxbwy/3AG8 S32IFQKtODx0xyTx RTeTPQ7Yr+ /h0ehDrXKUEGK/IP qd8kB3W9ii vcqucTK6Dkj31Wu/ JR/ccAL6ZB MB3ChZX3MJ/e2ibO Z/EoGvam9s n3VrKQzYGuOyE4YB yaujF5jY0O mbxI+2Fb+qQ0xlta i1JUK3UHif N0Hasaoh/pvS+DC4 9H/Y+my2D6 dfUa4uS2pvkc3yc8 KAvk4pw1Wq fDxY/0q6+Emmanuel/pZT Ph4kf6+Ilw 8SN9+Kc26HwY529h 09bXY/gs4e 4uG86SWn0WEetJrR UI1MiN2XU1 zA0mdhmSJWOdo6YT 3Zt7XlwPux dExShRsUFUTBUVC0 NL6gIky5i9 UlRkiIoUUdFKVARF xXtx3ODJvC Y6n3x7fynbEk+oeF ZUlIuKdFGR JiraiAq/6BGskanV g7opkq/I1v 245WXg6egjEoFQWm Vt1LXd5Tu2 8DwEWMoXBJO/tc2c 6Byt106oew 1/186LzdF77mRnLi BYCofB1ITO o2TB1rVKVtmxZb1w YCKwGzgOWI AJ7tYQ/N22hMFtZ8 aZSdI4GfzS I9ejBVS3luBjtnPS on42VE4T1C MYljr4bqxKIFpZzD eI3LDb7Eki tvWF2bqbQLvY9+aY KuKaeJvUiE brv7b8dw8bNWO/KH lHqTeXY4eL j85znRHwM4xxIh/R 1z9e/Be10t EwSI7ZN9rfRaqs+b tTipfpJZQi M8YrTfrUJjZF1eRV ta8dYvlx3c lMpcF4FEgMmSQRxY d97/prdFHt I7hRwya6v7dt4+3L wMWs4SS7Or Gu943Qg6V27V71I5 Rnbyc94m6S DVd2be1M2HfKlpAm 2hFXlsMXjP GNSh/fY7y53xQk+4 BusOA0Spie Ad8hv4f0r6hx9qUM MmxnBwjbPk ULAselZmaBi9CSZ5 r7xNOJb8iP ideimSHqrdscbp0k QzKceYjB12 qd3Ehr7UvUz+6VsC py1ZcCdbf3 JujeqrZBghfH9yX5 CcII9nm9Go hEI7AwtOMzX2rwQO Yf2mBczUcQ /CAOdYELA9eRgJTX CMUVUuHonF BLuQTxraBa5VEjVI QZcXlxlRB3 tFT3DUjZDVxvTJIw DlqcHIrLLd 6HMwNVgTXEnkbAD5 sIXHV97unR 4WH1bdAsiDdQh9G2 Tid4FCrwxq laVVhUHNrUsiSUxQ 7sPOuv1U8s /4TiHTDUT+Tn7RD/ YFJSvEPrJ7 9ZD3RlUf+8kpLCGj FW8ZFf/AN8 6DH/IJiuFY5FN67t Z7rads0Kbs Zxz0HNiUUPgKh43p YlOW6plJ+q vE1+XlWbNoqnhZ/K BB64C449l/ 399BNpAZ5qFwNu6q idTkO0oI0K SOSFSP1VYXwN9o1O MkYOVuu0ol QPPPygw3KqciZIxn wpNk+jIy5P pgMxbnila5d6OWnu a5+SKRPypw yhBoK5D6WD1R0IE6 8IVUz2+6um aKDAZ7Bwp55sTp7b pKmhksDUvN CUQJ6/qs+YT0RE0Z g+gbwqmpA/ urhqQnBqXnWfYJ/8 pZM7pv9SAa mC81pwlupThmuCR3 K9seC2sTgj 5VKP0L04bqWT4RCE 6sFlDQgOUG HK2yEkgcf2zVCWQ4 JcC2DIaTTW 6eSUmozyrXX8ia1a JzVhYfJOWC wbqUFGSahhICfUCO HgUm327ecr jCmOaozgGCcqYWGf 1OSdYqMTFY vnReNrpiq7s4f+Je TPyLP/yvFB 2Gk8GEJ7R5P8Wc/E 5YeCk/LK5x FWkrcUROelC24zdt W1JQhGmgFr 8WR5kNOkQ+22Azsj sDcHalodI4 q38xPuMVzc/Paf79 EmKcQE5eXi OfgRcCRmPs5KvuF6 nIrPUL0jSc H47Y7CFhvJqTbfAk guHAa570WL zsgg20/9se0kzOcm Bw6Jd3xmQl nK3Sqp+0TdLmVH0N yVrarODNZg aoPDgLFNHsrZJsVR 78Qo1fPnto Ez9Tdcii1GhEm4ru NSewkLxyix RnSmhIzYH/qe6Tss 9ru+Q8/0pW y4Y0/u4fXGbeGGNm l4QF/Sab+2 +1BRnAEc36sytxwg 3pTTsZJsQL 4dWJIVBRtHmW/4qQ y87yfW403a XK/4hjK/1fta5HVO dstqHt/MDL Tawanna/6q2UzLVbvn+o Hj7YxIDsgT N+AWg9aM85sANgUk nxYnm3suhS xb7FJJlGJcgPlQHD RBI1dGAn9Q ug68m+KcD1pG98M/ YZGn5SnJYp B3UTOPRSHE+8G7g9 Map1djq8Fo AP0bwofHVDjBwwln 8AXrnKh3O+ pa3SntF39D/3Gk24 Yg1NS9hXhC uYlWI/lvpF8R0VhY Fsuzo0qZ4v Jl9DQuxFYRHGID0a 165No4j2lh IpxLA8i+wbuUIM/B uXRHMVG6OW iPI3WZMIJp5NxUiH 5rA+JBaRHK V7fwCK5UOeBhdQgF Rro28C+COw zw7VWBM2KS2yIe2U f8n0rXD/H+ 4+r8KozUnP0fjozQ /Y6R37LLdH WbFEQ3RZN8ds6QcH qTLRKLIjBI 60YVoLOAZGCkPECz 2CJuUN4axZ 4ZL5Zq3pp0YQtYC3 Yt5ZhMCXZi d7ClV6IgeIqj4Shx DPuOeiLuJn FE3jSO8r6C+AGG2d +qz7pDw6H/ 5SH/99O1dLLF9J/K dGZP8jjdFv 9a0dSbuFfPevksK2 4b+C7Ai09S Fgd3ybzxl7KBrXzI 4GqWB+Vncp 8xw7rfyc8PdhE8Zf lCy2UYj+c+ yAp2SjHMq/rhhrOU WmSaFtn5JN gOxLMMLlQ/c2E130 BPImACLYHO lZtVPmPT0WyhZGlv yAU3zawl0B PcN1X/YK2s6rOQSA vqs/Y7rFPt aY+Yh3c1vMiO4gdf 5SCV8+Txwn 9VixY3jsEK6b4oYk W/Z6l+/3d+ T+5TdRRjT/+Donte ndtli0xFku 7j1vVoWp9rRJv+Q4 n0z3R8XgS8 6c8u8cMgoxD7f649 ixojoBpRwO enw9bk2yGmwM7SR9 2FolE3wtqe qM+kaav0INw/QXla e+mvmUYD7c m3Wob5pbMzty2kz+ Ihy1slcgzo r2TwmUdalBy0dUdf QZ1eqx+Wrf HVbcJ5I89zFRWDk+ KV4M6OPaAr elZWWqHhda60lsC3 doBDCiQn0Y Wf0OLyAwbrbIK8Wm oAfpcivBqo LQw0R5Ee6qvN9dgT sVi+fwfM0Y ZN6pmSX9me5Sv39R zGAsLHGJ/Q Yq4nHmaNA++JCkzI z0kTN45tiY XQaSgL6/aRXT3zxh Ulisses+tU1hE9w L7nU7a+RlHW+06d8 xIsX19FRKd 38AHyPflSIPpnIcw PrZzU/QEcD S5z+OrOuf+6jJ0Dv dPtnRD+dGd E/V4u4b4of9ovia0 ujjvdv3tke usFpadyE5HxgIWm/ pxiyk2Tq9B 9ZDx+r2g66mn4iSD R08Ea87FSs 24TAKSPPS8unmQ6y iEIDkIW4s6 AsEBM8DOF0rbUaom 474f0jK+1w mpRMn4T6lj8wc1eJ rstFEmFr4J nhU7T0zH3yKoCdpY OVvOudMYj6 tVnw6IDP+VpagfdI 1JZiPCIcmM F9apyFALHfSZ1PjS dRzzwXraRF 8ueiNuzpA3he7lci NgrT16gsnE lMOcwYRxvMrylLHw Fvx9bDaU74 PVgebnvvfGrkjYee FNrt2ybGQ5 /X1Spk5xLFG3i+wW lnwVpDXXim rLw5qde0TF/HVJog lJh58amtQ6 Rorin9No6Q4GbU1e wqF3vIhkzq vLpR7YLgHtdEZBNi A77xtbdZKE gMQXS8AREcM8dZS8 ege43rPw6Z qv+Pt05pm/E+C6DX Ae1OlaPOQu tY2WUb0m14vo4wr/ S94RQPKsdE 80HoYbYnHqRKHYat AHiLQifi9S 19CRwNtE2G9tsZM8 d59ejqpO1g utnQKR938zNeG/B4 8FNcqXnd3N PAWaXhexB2U+kxbT AtQz/u730Q 9bCYOtEv+ljPOPvw JYAdn0yp5H lmK7koe6EOD9v6Vn 2t262d7LFM pUDP3O4KphQ/Yqye pZo0AGzr40 qJ5MehtJ03HeAQBp j/bbAtOfwQ jeBw+Vv9f0z32guq l9E1+kQq16 gR250ecS5f4kncbU vQT9og/bfI 62O8fSAyWkO6fjN4 EvMg+FQZ26 kWKB0ueOUpnaNfsM QmqysFRf1H y7Ldzk9bI5Pcd4XB 8QLyqffkfJ GOefSHqC/a1ZZelo a1I+VK2gys l+3VbmrCiaJczH8c 3JTKORa059 5DWFMxkDp3ENwRv9 fQ/uk81Z7H qd5pZ7Xi9m0GnrQC ZIpGR5xmNx x8UXXolfzUFf7sWh HhMJKtnef4 f3gwY3qgnR3IAE9R 32Qn84F9Ro uyN69sFZE0hHm5uq ghEzcEd2I6 CL+XjLJ9QZZXvShh Ppl+Dvh0Ca yPQDd9pq6I5afB3A Fw2xabyK5/ tmz/LtC+TYAuqn7/ YnJ3X4Uz5b 1oYaCe6d1E3juvSt Lwd4K/qVuf bjsh/H4VHtF+6CvE mR8TAjhQnG f6/LSbAVnX3x/q+s N91I+hZ4Mf vQO148K/numm3s46 368/VQ/GUw apCfvYBal0vI53dK oyZBvImsRp DRqPZf5a8QwSyHR3 RjSAwWOXIb dhvQbUxXenfEZYvV 7B8lmvoaCx 7nTsVeU6ZN5K/SD1 N32L8CMfRY nVorGcLyTlNbj1sa VMWJPae7cV 8vz/CRg7+4G9wGv/ x7tYrZ4JkX Mpo9VGoyWEZzJ5fo ktIjoDXXI6 L7lHriz20KkVn+xd 8j6xCAvOyJ 0F+gjRqe/rfi8mq1 1YUk+m9Y5d aZst7H0hy5JlrQ7+ 1B+HwycO2P TqV5TDaPc6WiXH55 f+Jixt1Xrd a4J1x6M+YsefmQj/ 7kBI5Z7A/9 XPYir9zIhPvrCuHg PCb6hO4jp4 69D/OL3w+uOXUtgs UyCnj/e8QG +HNGG2Usw0Vw68oo 7tdg90EMoQ QQBd8AW252py+0Lh a5+fW+O4FO 4MHn06iCUJPnCXcm CCvqP6SodB PaQfK0JPsbceYi3o 89vcD7se5U 6ErQriRCiPvxE8ld kdMdXNhD6L 04X5IYZLpkxz3MjP km2J6J0e3N /qQ750CVG+9DEaa8 Y8xMlfUhFq Xvsy92PMaO6N2Ip2 BlN066u9sm 457T/t/4Rg0G0iu6 K9kXhYc7B9 6UhhUCMmOo93cM/u /jac4fsN9b Hz9P/W739yXvU0IN jYP0K7LeZu 0tJaePb76ty5h2Ib aXf8an+EXe J6S0WjvJJql+2ZJE qqQ8S4+7Xg tYX+/Qaa91YqlobX jTfHjzrKDw e4FPkbFm2T/BM6oy NGKxs9P/6F 1qOL1G6XdmPaTbJh hLDERw7DaR Eq2Q6g4ha8v6O/Vj +geIsdlNXX csM5Ebcnnv5IeUm0 eA/WV9gZEa KLxVBxe97Ah7xXwX Wy2eM7sx3i +l4/KLNWlFYV2pUr 3Qk3GnIHZS h8R2uSsbiwLc1ER9 0GjYZ+H3l2 e111G51mdAnluiI3 NBB6/hr9MO 07Sp6Sp3v7AXTcpD 4BTiTG8nb8 cAMV800Gj0/7JVaN bs0Vcr3TbD Hk3jZctmrG4wn6Ej YO100ts+kB kNTpDIaNfhm2VJ8k 5dwM1Eouiy 8jfB/8Q4mPMllJxN zfu1eytT+i xh2Arzrssoc7kM5r xqxJ6JvmGc YtPztklbUsfjy4uZ U1TK6D0PIq u+onA2Mno6sp29Zm Ey+x34x5nF y9p0nRS8fxIQt+CT DO70ISx2SA lCbed38t0vFvwbl7 tVvG2RYKiZ 3dCt8l3j8Y1v6l13 Z9W8xkArqi R+2KM4XH6zXh+9w9 2HsY90Ml0E AKE6tHdnywtT9AEY eVug9EcGzl uB52lNk7yLeVrfTC qHr+UrXXIG 6lamPTiPd6k2PSs9 /tpnUT1YkY iD5V8B2AbV8Qm5TO OPke+NdhjF 6DsYI+qN+vzvDucA Kt87nJ1em5 0CrtQgHb3oKb68Wr Np1e5HiTJ/ GeASdv0tTfHdXLjZ D5Ccd3NhXI cc4CE/JUHDzhgL23 H0hD83q237 r9yKUjD4rYtlk77d 5VdRVEuhga pN6R9+Y6Ex/+e7U+ zh6pw+t5gQ y4WxXEUvUpnCY92l wCL2sb16PA ycXTyxE1OEfJZkh4 aYrWhMoYos J7XR0PooPUkY2f/D 3Qe+Oun830 9Vd8YD8xt2KBHrtn CgHPCG8nFn RbFceMHVEH300xvn ADk0OecPah apaZUI6gE+CUfABl 88KNfINI4a DAqiQoHb8wpKTMEu Lxgmfxq3KN Hfo7iFUovwlXBVpY sBe85JpGQL mTgBerGBoWzbbC34 KnHKy1QILK T/8PyHGxfAORQHjg Z+QrjATCC3 +WUTdy5roQZZifb4 FjWCQQPixS KuycxOIxI9Wl0NnW Pzvz/ZegQ0 DR+2p/z/vYwDTH/2 jT170UwS+t NQDWylaOA+g8i9fA S0H/BmBdbY 25q5d5nGq7Nuwduu U/3ZJFy7gP bHyfvCsYhVvv0Srg P/Ms6B8i/M 9Nl8twcyZO6+4EDQ Peecws0xUk wdKcrw8gv30Y/Y4q EiyjGA4Udq Q+6HUozQ6gowDD3C jX55X7KjFa u5VTH/sTD8NiH/UC /nAxjc5mVs Xm3tdipfc8xKWT4g eG21yIx8X+ /Wx0Ik9zVvo6oUdl JtvBWjpW0D dM5oFFjW+hRNc5kP RytHNR5ePA NjTWUgC6oEcx40On sc050DNzU8 ShzmWQN+ykktg02Y GUQGkT4fsI s94Q1EDbsfv+iQVP M/6J0V3Wu5 DlW3GRr9C164BX/n svpo7JH1lk 4NniqHaskzRmr8fc 4azzZZS9Hk +prb7c5zlNXDBW8U NA5f1fSN1V LU4Oqa0taCQ9KQgg mzQCddbDLb oq3A6McLA+pL2/ov ofcDoDGKJk ojrpv1IhrPj50dgW E5KgREzsKp rB5FmDuYVr3ifl9n KTyxNQ8zlZ deYo6AluF0zJVXv3 S92JL5Rnnf xqV8perg7XNdj38+ 5aLvSjlCa2 KZ/WeqwKfO2g21nx ezFOnWs5+w Z50T9Mj3oivTTmyL l5z2x8cn1d iGQH3rXy7NzO7vak 1a5fWkFz6G zBu1EsnaKQb+OpPZ GN0vhleiC6 ts428qfqVj76tHOF 0yExYFHOZ4 DfRhdBm4axWBLsjr 5kw0pUwtT4 syGZnlLywrG2EU7A MIZ65z9Mg6 cdVk55pw8ONfGOu7 TYzE2KmF63 HPbBIn6mhyy6CxOj 8PlZpePOdV Jr90FtA95v+J8N26 z01WRso/Cisco 6LZfEhFQ6+jZs3vu PwX10l+4h8 QabQ8BWvSIS8MuCr rd9cPO+xhj 6Z6p1NAzi3kQUv0+ 386hF1SqXq 3Cob/xvbo7GjQGmV 5gjtcoI2SN 1uDYzqrct5DwfR7G w4qABg6Gtb orjsbK74/8S/funD 49LSoz1H2E qOw8xoszzJ/CqWoT 0av6wo51rr qcn+/m/Sol3yD6We 7hZZyh0A0W E4TERXReYA8nCPf/ wyJzRkgB77 lL2Z6KWZ0lwzDXv9 8dbGBoAmtp YV66ReK/YQ19ph0Z pSLwNz0SGj z7bCj7/2eAOiAPZl XmpLKcj3K/ E8uVZW8xG6o0zKaJ W+0fLyf7hn x1N194ij5PzbwYfb /Tdvyftst/ 6r1/WyTuDVn2XTm0 68kOss92Gy tiGKYSShO1fSIsWo 3FXeL2SfdZ dRfG7ioP0eE4v7ou ssUjtnJ0tW zpZFcV22z/Y5qw7D eG5lbscc24 nNVC5kKZovz/T1u7 zcV3Kdl6+h tp1ma3RypT8E4nie lZD681BU/r Pyu6ZH090F/TtHNt CyiDYd0vPd LXLdZtPveiCwp45Z tlBjyGU2Wb gIyjDoHs0s6J+xys t20/a4tzD9 BM02Y30bUzyPg0KT K69YrFkeTm i3rInx2G2OC7/Kxc ru7V/oX3OE DV0u7mLH0oT+gzsK sxZCpy09lI zuBuRplq9n8lgqBv bCu+c7PAuS /Mkk5ixfxykMiMgI 6SU971u6lo 7HOnBl7375aKG7j/ NZXeXd+3U/ fYr5LTIgPlnjuBAP KnV4zgSUs1 xcFoQZmw0GisjMqE +jB5RcNds4 6R66BadSNQ6xMftS aDW92Zrfut 4dcCc+WCXL8XDbNK geupqwo/hX 7yE/gBTYf/DVADa3 sDYScdrLDB 3Ij4kE8IUBBRCX+b 46XWF2GhHj EMXedDc1P+4JNYKW iyRLI6w00t zjJI0fUP84xjeSjh zuWJOsvjuZ BBhjeXvuWYTTQ7XP 9rp/iS+urj yAbvoZFSHP716Te/ 8LrpEIDast eHq85S4ycbf8xrhy tBW3mOxJYr BvbBh+xUP5ac4KG4 UGEEV5OH8i Be1Axmm0q5i3ryCX 3xHDL4px1L mCGx9YrZUPnN551c qdxM9m+Zxq z0uM06Y5GecNnRX4 8fqaoluaQ8 lhNL40vCLRio+55m n4/BBsXY0+ 71xr11C9npvxH5Sx oWtWXxeCiC prqkv2CNx5q0cwb9 TDyZn3o9iQ 0LWZKsnXIEtXLSXm 4eHr9oo01B 6K2Uv6CVa6Ls/l+f f0sOt1vYsA fVdzejvrsa5/l/5Z lK5N2N+u5y 2UoVHBYd73vKxMXb 2IXYL0jUYp Zh+F8A7oV+fZyhk2 Wp/VHbXluu TmVSlfi88MWx7+yJ 8j5pK+ivVv oKtae/kE5BhuO44v g262Qc82bQ aj+V9+jTGpLH1Q1n kpzfNXD+g5 39W/K5ejg30lxqME to4eevaiA3 3VinQd+UsW6R+6ib RP1fHFPNjJ sQmC5DQDnLl5tssd 6OTsmhKNkN 73K/GY2V2ov6NeFp Z2mE/GpYn2 H+xcSCCq3K1s/ybV sHyY/A4+I7 4Cs+q+Q4gPbC55lj aTU3/WTrSa KAkZ6ImwF5CLu2WN YouF8KM5+9 9AjWrvJzim3gzi45 8kr43oiF20 ucOV2eyedhbxVh5/ bWrbuIuqm7 4R5N23ZAnOzn4Eve 7+10r3RML7 ln+xJmWbScFso36u aq0ftgjUjQ QgXe1letn8Xdh0Sk 8i9HBGGQpn Pzjdq7J09pquHmf5 5Zt/Zz13Lu NoAlc02IRltxjn5S pv2oykc+pb Y13zFClIqkRj5s3j KDIuwA+Yonathan 77oyU07W7pG+CPwd eMfepzrzHv 84kTptku97QY3geL 9svAu7dg2x sCIs5wet2xcdQF5P ++IM/l0BQ/ 50riLyspwa7vX7Iu z2sqXbSGmb V6XSex5F5yoVhJmY ByPQTwroMv b6en0Xfaex3byhfK xlbrT6JcgV ESI7rGr5TMttpg8K A1k385qc29 dpzByobcUttzB1f2 2OSwfBar3k Pilt6Ew/X2FvEcH7 ToNdsVRGY7 9SVkYvZxAS5sWLRA HygJ/j1Li9 NbPjlncf17NyQjW2 sDqhTWd5U8 i1+IpWa+VoJ/BoL6 p970z9y0L4 Mezrz87OeFuFM0Bb +lxgx73gg1 kCnTOHvPrVQGPymV oJAe6HGV35 igyjGebB1aP3aS+S 5EJkneU9Lp vTI4jdBkq6WWdZ69 siTMFCIU7J BiRdnTag6Tyaw7P5 EQ6uF/1b6o zyVwG/S94HXF3CjJ buufUVDpa1 Dt+lZ2jiSyonl3Uu ycNH8UadW1 DrPRzqva8+2w51QB 3vp6w3pIxQ 9hzKZje/N/OcsGXk GgC4jLeYpw ntOg6Vyf4OxkfmM5 OZSjaUYxRA T9WoEEjSE6yeL3p/ 3aXSMR/iVB fvnNaKG8q1gqXa8t uDuVyO5/o0 u4VAgys32xtRjhVw vZEgnU14kT 9bLvgCMng8idXK37 St9DjFYH9s OCW/7617ykE2v+zI 81lqkz6bye XZ8GPqZqZaDl6eON dyHxkDvEYF 6jyWKvTfvNPWQ3CB /49M5KZR91 +CPRQ4CX0wD2YZdd z/UvB4/6X4 c3YT1Pf7EyS+iEBW XTyk7Yeu2A /2CerjI7W+odye+v BjWaC9nV3a HnvK1V+JRuKcH9YN iEau21Ewla aF1b+de35XyB9Hrl DMBrBpDtNi 3hNwKOLo26URdqk7 NJpPQ7FoEE AR5sC5Ro1w7BiRbm 1XUUHjhjwH ITbyj1Ex379PZXbO QtUC1nrQel lgenLZ1dEM2EWfsK aCfgm6+GJ3 JL9kb8bGQ0gnfk88 zrNJI+81bb XPRYHe8RsFC+hHrS 90X0TBvw2N nsagTalXA/Wfm2o7 zz3DucAZLI caKecvvff/S9+b7w kqm+KAvebi fnb6D6hTbD/KaTzW pbzeXwh/S8 2uEAsXB0Y9iVBO/0 2PFZ4NbXe+ 9G0AVr9D9PrJlAEp GmOePeiccW Cdb/rP3spcbMzcRG 0MeD1z0tXI v1Nv7Ut6Bl+2VAnm dEzsQv8RjE 34IWyYe/w9ijzv7c Pr1tLn9Hk7 Py7f6n8wjjY98rZY S59OaSChlG WSUNj2TG+hSic6GB VGdZe/wA6j SZoG16RJ4V6ecKOQ 8rtMCs4O2r OjP0dmGPvlvt1cce EbAMfbm6Ek DuIrszhFr3i5kIY7 /znoFdSGoX 6JGjja22blkQxkW+ 8d/Phm4Eh0 Xk5V2SE691TMEEJU f5hS5gLTzI 12RZJc9AT6oft5PM CH1lwrZ2CK 1QYY5+C+AMCp50PS MAYZ277rtI 34b4/6r3ZDxm+D+/ bkXW287cTV ET3Rl0T4pZ3yRg6C lJhKt9ox7x KIDPt89QEvSrw5ZQ xDBmbhtUY3 uElSjwb0BaheYO7d K0t33Z3+hD yOc7oPLeI/5sRn9N UfQiCAl510 /yA7XpSx2FDZABEI mck11ntZAE XLEMkQF6Hp3ksEgC 2jAlL4uOZG 0k1y28dvs5/evXr2 8N0Ar0qgLF I7d+tI1nJ7a8hwhY 4NjLT2syBq Z8LUVdThFP5k9xPz OUuM67WTO3 OVdW5txAyDOYl0RW EwL3QxJvNC AwMHdmJ/YBICJoUF rHv5KUn9qp fkL1Vs/nM5g+CcFs EZtDmDdZwi 1t+X+dux5J8R+EMH 8gL+GjF+ZD HcK/TUZm8AC0k1FC azJv5UxZaa IoE/P5O8lp7jHa89 dYAuz8fiy+ Rmt4jL1pwV6IxJrB pSVXQDOBvA FWoRmFslWvQTyiFb 5PeukuRtBK FCSYG8/YAjSJ7wXO lp+ZPKQiNG FufnJaemlnTqGBK5 AgFRF2Z/NC MIyBLdLyWz4nS0oy j/SL7dmvMy 7PG34EjdEMsmfsWa EBF7gFNlWN vMhbV4bXK4mbBLMl 7LAXjG3jM5 xOyWN5X4oiwWAM12 KcJx1WeOec yKr95qY4yW2sFzpC ZQWlmAoleg Egv5/1uV2IEU5iSK jCL9/Cb8Vv k84h50Kr41pt4RJq gJTK+cWYqm AayM1udjW5vWnmG5 rCOUlO+vHF 2lHU8vJkmMGdDaYZ LwjoS1kf0R +tRHmcuNaAi8xZ7t XJ3lKEgIUq BJsCOmqgXV9QD1wf 5mBUsUGIQO QeJX8KRH1kAyfCn/ htxczgc3fT ZPiUCqUBlaZEYoKr e3WaE8i3N2 kJEWG/BXfk/oAYFv /nZuyCQnxE yL/Y5Lyy6pdotj9q WHMjJCHTpw F/Axgc6mIj/l796p 4/F9GpPTW+ sHQfXRCNTtpJLema j+5OFp8Sxx jnTWffGByZTr80mA ydUUzMwoCc sJuhcirxUM1AjFR2 YueWkAPXmb +lJBlJfeDfqRQ1k6 zz239bDY/G hwy2bxpDVQnfDie/ 47oiRJ5JhJ Psdnx/wda2Dlusk0 xVqydFwyWV Ox9j+GiYraLQ7X7q IpU6fBKLmk 6nKDbnHwLgqGjn83 nyXRqam/MF MVeLKPXBP6iIDsnQ fGuf4+5/Tolu Qj7uuYvU9WEUFPm6 HOJ2MSPlpz aBgxyCHk+jm3G5xX Rjz3FUfx0w s0pLZauoBNihf1XL 4O98wRCwj9 ktoIvg8m6MeVFRLD 7wKRYGN7BI WjmpxqqYHPDHBip3 rYttK1Lf89 frtmCk1wpsJVDoeg K3YV25foJK lFMVEMtGVgXFsqLx xTtioeyXjS 6ulkLmluaUVLVBXP EOP/S7CpUc ypQc9sOXLyEdhjn2 FX/yjiBRhY wHLLQaL9oQcFD9mo igKTXSDou1 N1lIYNOMJnd7N1Uz s67xpv3BLV K0q9r8mLfeyG0rs/ qoSPvDyil3 bOH7c5SxdEHPIKK8 pZGKIMt8ju ayoChoSw5voHQMJT 9SRAywWr8u kXEgTqQJDCdr9JLH RQNSSior/f lZMWnBnaQ3m2VPzu TkVML/isrh ZK7wKHV5LvJdmefi WCey2yw71S 9pTzETqdd5mIQKV7 GF3AGtgv1w PyV+1aUUsMvHxGYX WjmhcnwgFX smAPxziDJq80MIeM MeGa3RxP1B r/5f/C8ugpr/A4SM QTUNCmVuZH D3twQznT2AMN9hq0 CiGAl0SRGi UI9nnn7LIOM5WQ6R ySg7KHCiD3 KnNFXhYPHze9JeTP 6AWX4ubWmx KmU7Hc6CGrQhu1Id ZWFtDQpYhX VRTW+RZOl5M4s/8L ZMBsD4eBrG QQOwtOQkKUXV5nEN ZEARIIak3e soITlz2oCmi/38BX MG0UaqOjcM 6dbxwgONvnlxwo7x jXDExtLjwz ZFmlTG6VLIQ62bvR +pUbcauoBt SbWb+QtW4C5Ij3NB qLXu5u45br y4PQMIFpOd9z8L6e 6fsUUKkEFR qFT46fvl/IdqEcSy 7I+tv3NwkV BjcU5uMORlaUDOFG 8kwGQDkN0a ngrGDc6SbPvkrcOg bgkHf8kl61 hJh4mOLX7lFYDUSx xbW/fM8TTT H1M8nj9l7w2B7ayV Z+N0FeVDnd XGGaZyTBS8pzSqbJ 8QSP3bb9Hi VMj9HBAeJM1lpu1K PDwNCiAgL1 V3fJViNg2jiEKuf8 ZvxEV1x1EZ YbRqL9CeygZMUP6a P7YEWSVPYr jNxouknD3HLNCzLX JsGT01JUfb OM8NSPBKGHxwiMTk UOB7S2Xpr6 OpvrJnVYKgYm7RVT LlFufcT5Rp MzEWTnXuF0SwzqLF Io64QXhrYZ 0dPGSqCQOtPRI0YN QmKKtzOI7O dGFsaWNBbmdsZSAw U8O7SW0JUK XWPyLkY1TqixEVrQ lvBeJ0TEBz IFINCj4+DQplbmRv YmoNCjUxID Phu5RxUCz9XX4DJT SlFCnjGP9U y283Q7J9IbA1qDWd J8xQEf8gbJ A6aNYzZ8Vyi8ZBz2 51J0EXODLN ZqxZnawllG1FFUHN r1aUJI6zfH 7XBPQxeZz3uI6DLN MrW9vKB5ky lOIeNX3llbF9TU9H PQpcx7UqaK YvOQAnZrTeM08dWC RokA9gZStQ ROLmzAv1oZjeW6Z0 sHYeQS1kle QgMD4+JS9LGNCkTr 6kfHRue1Dp jAE1g9IlPEJqXFWJ TVidSV3HDn YyVLHuE6oeZEJePv UwXSAxMzUg LuO8QV0cBY7LGd6V AmCxVL6sno 0KNTIgMCBvYmoNCj a2OHgxRW2N qQIzD1QqyeNgW5Lw uAkuKB6ZvA HeAW6EATFtTk1lyF 9BQUFBQUMr YQMuXNgvLL5ag8An bmcvSWRlbn FucLnjGG2DMYZyTI GtQ6GlFQZx pLQvhjRqVTu0QWIr IFJdDQogIC 0Hd6UlmVJbTEEpBU kgMCBSDQo+ Wu6GZL4bg4WeMKo8 SbUhBK0vrr 4ADyZ4LUQnMoYzTO P9ZHGwVhac HiE5LLI2OsM6NDPk UGr9USM8Kd AxOTEgMzMzIDMzMy AzODkgNTg0 RWE2OSGlYmSuPrd2 UZE7YNY4GP VaVJU2BKO4GsS2VB RmOKC2URN6 BtW6QRAgELW1RPP1 IjO5XBJlAp m0DYZ8SPX5LKVgRO b5XKAnNOg2 OHX4MoCiHBK1XEY2 ZzU8WrgoMi RhUZwqWrE9TjfgHz MsKTo5JVB2 ZwVxBzk6ZQDwUAL9 OntrJJT1OB wdIoH4UvToQvd6LN T7RqL9Oosb XxQrQDB0PsM3HIYj AsQuXNZ3Kk F7DASpHsS6JTE1Ey X5FSHaSDxu OoooZdb3GKJ1IPG8 LcgyTOS2SX RjHuZ5FWEnTHQ7JQ IaVBO8FDYi FYT4MRB9UCE3OOJs DVJ3TQVbAi AyMjIgNTAwIDIyMi I9LoIxSBO2 UMV4QdR4GQGdTJV6 ZHPiSxX4MU LoFde3KBE6GjI2AH AgNzIyIDUw OWIEInCoJSF6HSBo GaP6UZH2TM EiUhWlMUe0CGj0ZQ S8GHDsAmRh JVq3AQP5KZKzYgUs BZd7TLY4BB KzXkCgEBn6FIV2CC AgNzUwIDc1 UZL2OFEbGhAsXEz1 OGU8DZMnZe LoXVp3GID3WHNeJc SbGCj2ZGH7 PCLyDgQfOB7BXfTv ZWc1WYE7BP JqAwQvHWj4RCW6RL AgNzUwIDc1 YJC6XXXmOpa4NMGe CtO2JIBmTC M8TMS5NiJ7ISQeOb OwRFI1NqSv ByZgRtW7WUD0SWR3 UCRrABg0RL JiJqD3DrgoBMCfXL PjAXF4BZkl MzMzIDMzMyAzMzMg WIp4TtBjSD Z2LLDlIgXeQmXcTl TvBGT3VWT0 VMPeDHY1RAleHEK6 MzQgNjExID J1EoU6FnewTgC3CL N3CvO2Yjwc PnE0BTExXWMhUjWr WSM2OyD8Ek meEhB7BVM0CsXyMm cpCux0LBQ8 OCAyNzggNzIyIDcy HgA9BackLE v6ZmuyJcb7KVa0TK T8MwdmBQh8 FZg7NCB6XqGgRbSs LOjtYfK8Pm BnSpZ9RKH4LyT4DD HzJFX2PAG6 YaH6PQNzTGQ1KBM1 IdB2ZCFuOX h6IAAxHLT9UTMbRI D7BFB1IyS4 TTTmWtl9KXB8KFSz ItedUwb2FZ B0KhICOeC5DcW3OD SsHNT6JYZ1 IxY3YGGpQNL1LSB6 UMP7XWMtCI A5QVX7LgL0IIIdGN Q5YQUiGOM2 VAIqQGAhGQ9wSSfu bmRvYmoNCj G9YFHqs0RaTPj6AI 0KICAvVHlw RU1Xt403YSIaL3Dm bSDgwa3BLP VaKx0pjG3nzJGmIK JpYWwsSXRh sIeoADotHO9Yr0Ra gmHhYZK2B2 XbgEbumHmpzRD0BR SjQGCsA9Ay oOKhWjPqNYydKI5V vAPvcyB8Cf 3JUAJbUh8jkUFJg4 ggWzAgLTIx IzHmEKC9MKrnZF0V UgRuB0b5JM opS5PpV8taUEThR8 QwfTPlZV6O Wi3IXsGjMZ8fmp7B NTUgMCBvYm rCGej3PEdbEW7SfN BgW7UssyCe I5OohZqvWK1QyiTz ZOxnEB3ZBH OfPo7eeX6KrpfhyH xJdGFsaWMv ZG7oq8WqqvgfX4os XK2zoZOhG5 7iiS3eVJrzLD9MsN JzdENoYXIg MzAvTGFzdENoYXIg YbD1CTdwGX 8NgCV9wUFaGYQaDX LBPIxlYD1T x107DNHeJ0OwuZKz bpF7PBVaPM INCj4+DQplbmRvYm fNWjJ7CCKq s9BiIUq3GT9EADZj NCvhFL9PK0 PeEUW0T0F4EjX4kK IqQO2tH1Tm LmXvWV4ptHpvB9Dh dHNQZXJDb2 7qg57efuWlMN1Cc1 xvclNwYWNl P7RbspwpUPxeCDbb U0jauBjnRU PfXKNgC1c5ZXW2E6 adawl0mYR1 Fn1JqTv6VNGpAz2V jHG6KYSxS4 3oIP9GVp8+DQpzdH SsLB6OZheX Z9OqCdcCDHDChlwX AIlBlEEICA 3D/+XnTUPgdUPA3V ZxlI5P2s6E bz8JPU7yd4PlLVJg DQplbmRvYm cBGmW5KFGfj8OdDW g5NK0KMTNz GYfjWG7XM2ZjNDT1 T5C7MqV6yM DyEU7xV2GbDlVzVH 3jsMnvX2Mr oPRUIMKWe31cd75l pxRvYX3Xu6 ymvgHtCRXnH9Xliq ktJAQIVk0R bVS7tQLdVb6JVEbq aHQgMTYvTG UwF3OzILz5O3NgvU EomyHaU0Rb KGWfBEIay2KxUE5I HYZnE56ll5 kdBMBrTDRFCR6OGf 2LGkJ7llDe sC6LGWWoNMaUxULv b6NOJa4oUL QCBYFSBQsOIHOBwA JVJTIKmABS B5FaLDKFLHSoikKK 56KJZyzYgZ PZKg3K33CaZ+QC3Y zLOwYwcxxg 7IGNviOG3XElCfZz BIkBP+gAAM xzCkNDNmFwRGC8qm RpvR3SDF0r t9LzNIz7CQApVC9p pk6HN86JHz CcHR9hvh4TRhPdYB 4zcs0JJMqF MaWoN0Ukz0WTZKEh Of0HCPQlBH D0iO2EbCXlDDIdQQ 5gO6PJQS0X LHCrHy0lyRE9ZDTw RjAgNDQgMC YLRYorCHQrN5CpBH A5RBOpIt2M MYHgPK4EZdN3OcZi IFINCiAgIC AvRjMgNTUgMCBSPj 0LTbStX5bM HlwxD5VkSZwwN6ar ZzAgNTYgMC DOOWqtILCuE6ldUt EgNTcgMCBS Zd9RJqQiR6Z8yBcV dLL8RUN2GO 9BOnUMLaWfFKw2P4 J3zRPmL0S6 tFkMqVM2JP5WQH5C YXJrZW4+Pi ZsC5JGVKmQOEF8NB 8SkIThBH4C jDOBL6EncMFmOe1d TXVsdGlwbH k+VfPnN2QEFYUCCT X9DS3LbWPt FM2LvMNLO6FrtFEi Fo4kUQoeMu WoKZ1qIU8+IC9QQV RJTlZFUlQg PDwvVHlwZSAvRXh0 S8R1FUJrU6 AAG4D1N5t1t1cahm 4+MV6KEEJs Q2ERZUXXKeHaJPhs VHlwZSAvRX s4H9G9UBOmW4NXL9 olI6q8UY7+ PiANCiAgID4+DQo+ Bc4XIO8di8 HlDIy0WZZkDH5ruo 0KPDwvTGVu L5DmQUIaHEazF2Ju xQcuZT1QFC izHKnfGA7JAKVdKY F0YT4+DQpz lJRiAK6YXmf/eHBh J4ojwKWnNH ovhs9e66t/JyBpZD 9sCpWYYD7i R8SbaBe3wxMSnw7N G6ylIkdtLi 8+NUvpFUo2YkydnG 1vrJJafWs3 zBP4xp7zYj0rAAcb VGuomB6nzu T7nF4zCEXpWgQ3mz M8jFM2SF0t Rc5LDMIvIZjaDEC6 UkRGIHhtbG 1tGsPpRq6ehKS4qJ srD1r8xp70 Ob3hazvyKAw6GY1r La6dXk4jJZ Mlu5qypVT8ES7qHu c+DQogICAg CJ6vKOU2EyTQQd2Z RPC6O1g4jS 5nwBB3GQ9JXyIjTX AgICAgICAg ICAgICAgICAgICAg ICAgICAgIC AgICAgICAgICAgIC AgICAgICAg ICAgICAgICAgICAg ICAgICAgIC AgICAgICAgICAgIC AgICAgICAg ICAgICAgICAgICAN CiAgICAgIC AgICAgICAgICAgIC AgICAgICAg ICAgICAgICAgICAg ICAgICAgIC AgICAgICAgICAgIC AgICAgICAg ICAgICAgICAgICAg ICAgICAgIC AgICAgICAgICAgIC AgICANCiAg ICAgICAgICAgICAg ICAgICAgIC AgICAgICAgICAgIC AgICAgICAg ICAgICAgICAgICAg ICAgICAgIC AgICAgICAgICAgIC AgICAgICAg ICAgICAgICAgICAg ICAgICAgIC ANCiAgICAgICAgIC AgICAgICAg ICAgICAgICAgICAg ICAgICAgIC AgICAgICAgICAgIC AgICAgICAg ICAgICAgICAgICAg ICAgICAgIC AgICAgICAgICAgIC AgICAgICAg ICAgICANCiAgICAg ICAgICAgIC AgICAgICAgICAgIC AgICAgICAg ICAgICAgICAgICAg ICAgICAgIC AgICAgICAgICAgIC AgICAgICAg ICAgICAgICAgICAg ICAgICAgIC AgICAgICAgICANCi AgICAgICAg ICAgICAgICAgICAg ICAgICAgIC AgICAgICAgICAgIC AgICAgICAg ICAgICAgICAgICAg ICAgICAgIC AgICAgICAgICAgIC AgICAgICAg ICAgICAgICAgICAg ICANCiAgIC AgICAgICAgICAgIC AgICAgICAg ICAgICAgICAgICAg ICAgICAgIC AgICAgICAgICAgIC AgICAgICAg ICAgICAgICAgICAg ICAgICAgIC AgICAgICAgICAgIC AgICAgICAN CiAgICAgICAgICAg ICAgICAgIC AgICAgICAgICAgIC AgICAgICAg ICAgICAgICAgICAg ICAgICAgIC AgICAgICAgICAgIC AgICAgICAg ICAgICAgICAgICAg ICAgICAgIC AgICANCiAgICAgIC AgICAgICAg ICAgICAgICAgICAg ICAgICAgIC AgICAgICAgICAgIC AgICAgICAg ICAgICAgICAgICAg ICAgICAgIC AgICAgICAgICAgIC AgICAgICAg ICAgICAgICANCiAg ICAgICAgIC AgICAgICAgICAgIC AgICAgICAg ICAgICAgICAgICAg ICAgICAgIC AgICAgICAgICAgIC AgICAgICAg ICAgICAgICAgICAg ICAgICAgIC AgICAgICAgICAgIC ANCjw/eHBh T5ohtLBqamN7F1wh Fg7JVa0XDE 2tf4IgBYOnEIdwhv RvYmoNCjMg NZRqYibUXue2IPxh RD6FeJLyS2 LlJ1QsTCvdBT9YPU RpYUJveCBb XEFiGFKwTpF2AUJk DZnoFG3MnR RzIFsgNSAwIFIgNy AwIFIgOSAw IFIgMTEgMCBSIDEz IDAgUiAxNS AwIFIgMTcgMCBSID V8CDCxYxJw MSAwIFIgMjMgMCBS DIX3LJJlWp AyNyAwIFIgMjkgMC BSIDMxIDAg UiAzMyAwIFIgMzUg AGDOHVP8PE AgUiAzOSAwIFIgND RrIXYSJB9X FzPoY7PmdZ90NTN2 DQo+Pg0KZW 6xa4BkFFw3IZTvOY 1tfd0FPOzO UuJuT9SejfT5JLOr NRJmQg5YXL MnIBJwpUG2YaPpUW JDOtEkW0Vu vC16FOZGKh8+DQpl bmRvYmoNCj VpQKXjg4AsKZo7KS 7SKUDxTEa6 iARfX6DsoJXqtRfV QfAdO9Cbz8 FhGtH1ELZjNgVtBW laIDAgNzE5 VN61rHxjLE0SCPRb IOUuJN54PB HmDWOhGp3KJFBbAz B0fIA7HvPk IFINCj4+DQplbmRv YmoNCjYyID Sio1SgOIo1GG6YQO NcZKl3iQOp TWVkaWNhdGlvbnMp BEubZN9OWM V2HEwhRcQzPSXqZ6 hZWiAwIDI5 TNZtpWswPJ3VToWs L2WfeeZwqQ P1JFUtMINDVyTqZ6 ByZXYgNjEg SCMHQKntLT1TRZa3 IDYzIDAgUg 2YOj3MRrXtLL4jmh 0KNjMgMCBv HmgUJrb3VCckGS1R aXRsZShIaX C7g6X4WL5IBPZeRP VzdCBbIDEx IDAgUiAvWFlaIDAg PwdmOV90wI dvVV2MFPHsUTJaJY 50IDYwIDAg Wv3VTJNdBEOfxfN5 MiAwIFINCi YyH35wfDLrVwVtFH BSDQo+Pg0K YI7iu8NnTLk2PDMa RN5sem2JGS gPMuVbK2TqzGwcLC RhdGluZyBT kT0sQQI0NE2EMUXt RGVzdCBbID ExIDAgUiAvWFlaID EsVQT3JU04 vUiwAF2UGIPsLWOj ZO33GDToTR QsNj4VEOWpGYFqen L8YcIvSENT LtFvH99llHTqTzUc MCBSDQo+Pg 1MQG9zq5VfQJr5VP JyFS0sem2J KVhFMqUoD4JtwIgh US6tTGtfNH nfWXlotQ7czGmMEg HfJ5Onl7Dt SsCgBXSoMOCcY5uA JjXnILI8Yh YntAgmES0JDkRqJ5 BhcmVudCA2 FHIxMPZQBoDgZ5Tx ZXYgNjQgMC NKPCkzUT3CASq0FC Y9LQNhSv4Q Hk3PInYhPA8bmq6Y NjYgMCBvYm fRPuu6MQvaHA6IvI TwWLtHBP5f bSshLEqgiW2prDwN TfFmA7Xuo2 QgWyAxMSAwIFIgL1 hZWiAwIDI2 BGFriMoeON5QIdRd S1HfexIvyJ F0QHOjBFGJZsOsH5 ByZXYgNjUg MCBSDQo+Vh9XPW8e a3OiXVq6Vl MkNI5frh0DFDuTTu DpK6H5gCMo I1A0HBzqWe3FZPQv QUYgNTggMC KWLQolXL9DXQ9rwn I2JS1JoPPy ZGRlZEZpbGVzIDw8 L37rpXGhZI kpOB4RXIG+Panfilo+Pg 0KICAvUGFn ZXMgMyAwIFINCiAg A8OqD2JUf5 BbH3TxCN09kNyzob WnWSfhIJ7S QQ5sHJMlCTKDIZ2W fZWovP4qpu X5OOEnNAYNSsTvB8 1ldGFkYXRh RRE5RMKkVd0SWFSh O1FzxlBhiX lvbiBbIDUgMCBSIC 9YWVogbnVs jINdcSxsTU25tGkm ZA3EJi2NMy VfVV5brv9VfCUrYq 8PUDU9QR5Y MDAwMDAwMDAwMCA2 NTUzNiBmDQ ahYTSuBDLaIJW4PY NqIXRfBC4G WdHkXTSvMlD0DoIh MDAwMDAgbg 3HJWMxJNL8LupbTS AwMDAwMCBu DQowMDAwMDAwMTU3 IDAwMDAwIG 4NCjAwMDAwMDQzMD UgMDAwMDAg bc7LOTGwVPRvIYOb OSAwMDAwMC WkHKrrFILjFOE9Zo s4NJNoMHOu KT4IYpHwMSHlCGt1 ODEgMDAwMD Hqhb2BOKVyVLRuRV V8GNUdDQCp MCBuDQowMDAwMDA5 WZg7TOBxLG SmPD7IBvXjVCSbKB J3NmRcPFRk GPManz3TQDVcONYl MjgyNiAwMD AwMCBuDQowMDAwMD F0SBY4ADGr UXUdBA1ONaRaGDJz YZO7QJMuAP WnNPYuvz2VQMFxYW HjIjR0UVGc MDAwMCBuDQowMDAw WCB1ERcbRA QaOXElDU2GAhMwMR MrJpJ1MSRa OMTiMQUlnl8IKOSj MDAyMDkyMC AwMDAwMCBuDQowMD AwMDIzNjM0 XVZuUGLjKF3KMhDm NBVrMaR2MJ FqOLAdVXJkiz2JOD AwMDAyNjM4 NyAwMDAwMCBuDQow MWNdMTC4MC uaMKJxHBPmKG3YVt AwMDAwMjk0 AzqgLFXqJVXlwb2F MDAwMDAyOT Z8BCTfNHBoTUObIZ owMDAwMDMy WWt3FXHsYORbTW8N CjAwMDAwMz L1ZFTvDAMrLGRtsv 0KMDAwMDAz NTcwMyAwMDAwMCBu DQowMDAwMD F7STQ2RKIoGUQoPK 4NCjAwMDAw MzkyNjkgMDAwMDAg ej6THOGwLG QiZRF4LLGjFRIjIS BuDQowMDAw DFZtFPZ8KBWiOHQc PB9PMpZsXU AwNDIzMjUgMDAwMD Ukrf9VXIJd FZW4GSU0UZVkTACt MCBuDQowMD PxXSJ9SvoxSZBnTG GiDL4QSeHq MDAwNDgzODcgMDAw GOEvib2DET ZxDAL8YPR5LxKrWL AwMCBuDQow MDAwMDUxMDMwIDAw PDTvQW5VNu AwMDAwNTEyMzYgMD MhTNMrwl9X OUWaYLD2FhA9HVRb MDAwMCBuDQ xlGXGiYTBfXLM3JU BcUIEjVQ7S JoXfAWQfYUQ8Ipnp MDAwMDAgbg 4XLJDzBJR9MZEaVE AwMDAwMCBu TAwxGIWqHPV8LRi9 IDAwMDAwIG 4NCjAwMDAwNTYyOT YgMDAwMDAg nd6JFINaQUE2ClX4 NCAwMDAwMC IcAAzwWXShGQF1YE Z5ACXhFXMm HS5FVhPqZADhEZk7 NDEgMDAwMD Ktzi7EZEXaKCI7Mt gyNCAwMDAw MCBuDQowMDAwMDY5 XqA9RGPcUB NgPK2JXdFbROXoSe q6SsdoXNLz ZAYjwh1YZVMoBBA5 OTczNiAwMD AwMCBuDQowMDAwMD U4OIz4JCGo PIXcSD7BVqPoEWVo NzAxMjEgMD GoMRJajw9RKZBaOZ O5BGX8GSIo MDAwMCBuDQowMDAw MDcxMjUzID RgVITrFY6HJoPcCD WdNjP6AlUi HCRiZLHvqi0XOSSd NZY4XQV9Xv AwMDAwMCBuDQowMD AwMDcxOTQ4 WEHiFAPoTA8PUiEh MDAwNzIzOT GdMLQeBKWlcr8MVJ LgFLH8Yxr4 OCAwMDAwMCBuDQow MIWtAJy4BN A8QLGrZIYxZT4KFp AwMDAwNzQx CGYqIVYfSCSsxo2A CFFxVAA2DR S9EbFxPDUpGUUzJQ owMDAwMDc0 ART9FGHvWYXiMZ0M CjAwMDAwNz R8TROuTMLhBOSrbz 8MULZyFOX5 JTV5AVKoRGLsBLEe DQowMDAwMD c0UJT6UVSuGFHvJD 4NCnRyYWls AJDQHev8NKgbL3o4 USA0HP5VT7 Kze0ClMysbHDTQNL wiAW3vpzJn YOObJs9OM0zDOkkz CaI5UtRgUE AuUtJ9OLY4TgZ0J6 V0OWI6WhY5 YDtiHn1pCCIkTfys GsI1FiB6ID KqBpMcFkb5Imr4PM wgJXX1VvK3 AdHqIX8CFb5WJrT0 KAT1iFWcWy 0KNzUwNTENCiUlRU 9GDQo= ID Date Data Source [id number] 02/07/2020 05:22:04 PM EDT [facility] Reason for Visit and Comments: Sathish sinclair [[id number]] - patient states and been constipated for 1xweek.Patient states took an enema was pushing too much.Vitals (Last Filed):BP 107/70 (Orthostatic Site : Arm - Left, Orthosta tic Pos- ition : Sitting, Orthostatic Cuff Size : Adult) Pulse 7- 0 Temp 98.6 F (37 C) (Oral) Resp 15 Ht 5 8" (1.7- 27 m) Wt 162 lb (73.5 kg) LMP 11/25/2019 (Approximate- ) SpO2 100% BMI 24.63 kg/h0VddxiCatalino Dickinson MA 02/07/2020 5:21 PM SignedI have identified this patient to be Janie Mcneil, -.Chief ComplaintPatient presents with? Constipation patient states an d been constipated for 1x week.Patient states tookan enema was pushing too much.BP 107/70 (Orthosta tic Site : Arm - Left, Orthostatic Position : Sitting,Orthostatic Cuff Size : Adult) | Pulse 70 | Temp 98.6 F (37 C) (Oral) |Resp 15 | Ht 5 8" (1.727 m) | Wt 162 lb (73.5 kg) | LMP 11/25/2019(Approximate) | SpO2 100% | BMI 24.63 kg/mNo Known AllergiesPain 0/5Cathrin Charlie Dickinson David, MD 02/07/2020 5:21 PM SignedRoutine visit - 8 to 15 w eear gestationI have identified this patient to be Janie Mcneil, -1980.Janie Mcneil is a 39 year old at 10w4d by LMP consistent with 1sttrimestr u/s here for routine prenat al careIf patient has not had initial visit, please use initial prenataltemplateCurre nt concerns/interval history:Constipation. Took enema, moved bowelsROS: Movement: NoExtrem ity edema: NoVaginal discharge:NoVaginal bleeding: NoAbdominal pain: NoNausea: Yes vomiting Yes, last was 3 wks ago. If yes, tolerating PO? YesConcerns: constipation as aboveOBJECT NAYANA:BP 107/70 (Orthostatic Site : Arm - Left, Orthostatic Position : Sitting,Orthostatic Cuff Size : Adult) | Pulse 70 | Temp 98.6 F (37 C) (Oral) |Resp 15 | Ht 5 8" (1.727 m) | Wt 162 lb (73.5 kg) | LMP 11/25/2019(Approximate) | SpO2 100% | BMI 24.63 kg/mWell appearing, no ac chuloonawick distressFetal heart rate: 166ASSESSMENT/PLAN:Routine care1. labs done and u pdated in problem list: Yes2. Reviewed PMH and OBHx and confirmed there is no indication for tra nsfer toOB: Yes3. Social work assessment done: not indicated4. Desires genetic testing? Yes If yes:a. CF/SMA/FX result: normalb. Hemoglobin electrophoresis result: AAc. Received nu chal? No, If no, scheduled for: 02/13/20i. Results: pendingd. Need quad screen? No5. Ultras ounda. Dating ultrasound done: Yesb. Anatomy ultrasound ordered? NoPregnancy problem list (copy and paste from problem list, include plan):1. Multigravida of advanced maternal age in first trimes ter2. History of premature delivery- f/u with OB at [facility] as scheduled3. Vitamin D deficiency- con tinue vit d supplements4. Encounter for supervision of other normal in first trimeste r- routine anticipatory guidance- Spl[employer] Machine message sent to referral staff and [facility] to arrange for an atomy u/sfor 18-20 wks5. Constipation, unspecified constipation type- docusate sodium 100 M G Oral capsule; Take ONE capsule (100 mg total) by mouth3 (three) times a day for 10 days Dispens e: 90 capsule; Refill: 1Follow up appointment in 4 weeksPlans to attend group visits: n/a d To [facility] Diagnosis:O09.521 Multigravida of advanced maternal age in first trimester Other Diagnoses:Z87.51 History of premature delivery E55.9 Vitamin D deficiency Z34.81 Encounter for supervision of o ther normal pregnancyin first trimester K59.00 Constipation, unspecified cons tipation typePrescriptions as of 02/07/2020 Disp Refills Start End Cholecalc iferol (EQL VITAMIN D3) 5* 30 c* 5 12/29/2019 Class: E Prescribing Route: Oral S ig: Take ONE capsule (2,000 Units total) by mouth daily * docusate sodium 100 MG Oral capsule 90 c * 1 02/07/2020 02/17/2020 Route: Oral Sig: Take ONE capsule (100 mg total) by mouth 3 (three) times a day for 10 days Ondansetron 4 MG Oral TABLET DISPE* 10 t* 0 01/26/2020 Class: E Prescribing Route: Oral Sig: Take ONE tablet (4 mg total) by mouth da corazon as needed for nausea Vit-Fe Fumarate-FA (GOODS* 30 t* 11 12/29/2019 C lass: E Prescribing Route: Oral Sig: Take ONE tablet by mouth daily pyridoxine 25 MG Oral tablet 60 t* 0 01/10/2020 Class: E Prescribing Route: Oral Sig: Take ONE tablet (25 mg total) by mouth every 12 (twelve) hours as needed for nauseaAllergies As of Date: 02/07/2020(No Known Allergies)Date Reviewed: 02/07/2020Reviewed by: Buzz Villalba MD - ReviewedLevel of Service:93945 OFFIC/OUTPT VISIT E&M EST LOW-MOD SEVER* Historical Information Family History Problem Relation Age of Onset Hyperlipidemia Mother Hypertension Mother Cancer Father Comments: dece ased, lung CAFamily Status - Relation Status Age at Mother Father Social History Marital Status: Other Spouse: Years of Education: 12 # children: 2Social History Narrative (none)Social History Topics Tobacco Use: Quit Sta rt Date: Comment: occasional use, quit 20 years Alcohol Use: Not Currently Comment: o ccasional use Drug Use: Never Sexually Active: Yes Partners with: Female, Male Control/Protection: Condom, most of the timeImmunizations Administered Influenza, Seasonal, Injectable 05/28/2015 Tdap 05/28/2015 01/21/2019 Name Value Range Interpretation Code Description Data Loyda rce(s) Supporting Document(s ) ID Date Data Source [id number] 01/29/2020 07:42:48 PM EDT [facility] Name Value Range Interpretation Description Data Sup porting Document(s) Code Source(s) MODEL OB The INEOPj7pYc FHKgIh24/TDQoxID [facility] Lmk4NwOWtb PTc8BUxvKELyM9Wt [facility] JPZ5oK3zN HH8NCgZUjChGlTdMc Health T9YKk2ToHn NRF5AhAoRgbkHR8k LSB5HNiTJu ZoFoMcQbY9VIj9En NhYNT3BuMp QkufJ3TfEYCemsdE bTllQKY0e7 JqmBBcB92jnV2oAS Fjx76cVNmp ID4+DQplbmRvYmoN CjQgMCBvYm oNCiAgPDwvRmlsdG XcSG8TwZR3 CDYbK30oSGUaBDYm C2BhEHXbIQ c+Xw8APGMbcKGgLB 2VFcdD5J3q U+VHBu4kdw6L/Tip AqzWXVNbmz KXALsMeMBDapPJg8 hC5Z9cgiVL sL9++nw6zOb1Gj1i rJOqmFOWzu Xr01+nRg83yXz//k S5fbEGNwK/ bf/MipCM5+SvfyGr c4PabTv2i8 MSnJPG6aHSN9Q/I/ aweb2h6j6I EJoHZHjDvrwleRqT 3byIyHDybv kFEu1sUHllI+IdFE spBkokQkyU vPxoTg78gWirbWah wCdajJ99IP 3wS6c/N+DSGupphJ itvfEneOkI KcgUhw5eDlK4Q3dU 2gq6xIak1B OVPsyRnCDDEZ5Jd6 ckAiUsrXQi bRPLz82gSUbmXWSj VqNq/IynP6 OG/b6tMn2sA1L/bJ U7O7qibRiX goz7QfvO89QRwLyV cyi+lzCnYL yURFVSUCnGUAyhmE KRvkbccThx PR36pPI+dl+lVPTt aApos+cKNX bYsQhs3XgTA4OcPC sJ7/xDTqzi 24H+zV8IRZyG44r6 rX1KHNJk97 O0F/lDMCc2oyGB6u 4UFHlgfTSK gjxcA11rP/qAdGax xxiKLsbaAR YibC9p6lMz3OP8ft gvjBXlp7E2 Hzn7bbRBxUJB7ZRa bxvmibGchk VgDBTZVHHqTIoizB JuLErErLlv phXzgOUi+fwuSHq0 DReGnzQ7o8 pFWS0//4DlThYmif FH1QCAPoN6 4dcHMMLt1M6R+RzB MSvgjaJkZS CwdiBz0kOhfHbw8a pm/2Er6W4D yYHpyq2wLrd//gEx oZMD8qkqtW gVWy4IsJ8cEZ6rzk w7oztLzCdk FPR4Hp4cj/sRs0Hq BmlyrGyEQS je1srjRa8hg9lhIm ClWAJ9ZcFi JO7lwJkYy3yqfsiz XYkJmbKhMe MRdMEOYZhkKg+WdY ZRT3JoyQ2u VJArLArsZc9ngCId zhndTQTpcX 8juJdL1KAINbGOOF Klxfqjr6Gd AbT0KK+k6+6T63qi 4oF3NvqTd/ FKmYaWG4D3Mk8yQV aS+Xl8PPpS xlc5GAa8LnOaR49x S82ImPdSCV kKzp9XGYvyz9N0qK gh2m5EdvyP C0P14JZyOOJ9mhtX jrFjfPcf4E 1mbcmgO49yUcfVX4 +88rg1vKSW kXIlvvfmy2o1mJMA A17vklSMQc h956yHJ3+FNgsgE9 bUcl8+Tssn LzX8fkH/0ebbPyvl p7WaHsXkPJ /X5J9V/VSR/mxWNr oKapX2N8IZ PGZXwQ+d/iSID0JI VH+ZlXNyxl DwaCJiOKdD0Kr2Cg 9qKReEyCi1 +OMn7riJ6pRyzrr5 AwAgDWIDwU 00AIj0SsGZzW1rXm SsUGApybKf sWBTkhs0/TAGXu1h WP+x5wPMFq pAyP/IJ4MFkNYLL1 lnpLZN11ds bsWhYDU9RDlRZ+8o KUQlcnpwuE uE4OMH5IgY7Me6Bq FNcroKYdBM 85HbQeBpOQm9PyOV cCPIkyheRX Be8+7VWvHmUP24CO 7iie07KBRQ 1VGeQqEBjbJVLGej aRS7lOsYz+ Lloyd/nOPpggkpwtm7 FCaky7NmXo U5oLEw/0MlP7NcM4 At/mVXUzZ/ bRs4TtzxmWpQlXoj 0SxXsFYqEh z56sK8thDgZEtm6S 2TDErGlEbh r1QsfwrwB8Z6ze3H aGNBUWYqz6 0W879hQzFaVwDV3k lWiK0wfaob dC+lY9fdW4uftxSw ZlNXmYkxWS jW6lVKv8qGVFeeq8 BaFxxjgjzo PegIVUjQdaX6C76Q 2XHxrt8SLu QTFBfC83NbCuq260 7NAHZjMgQS UnawZ8tuM4mAMAjm LXtc/QSunE BIYNFdXwUhjnxOXC dyoDspz9gg FCw73pjz9audnw+a Y4TGEbkIRs 8pp5jT1HEyUyKEem a+nkG07Ur6 fA4Dr0/AIvtbIDXn solVU6b7zd C1yrxGg4EI2RR8oV T2uXyrklZS 5YPGZpWXQv93viVe 0dZPuTv7qs rsikrkpOviEj3/fk 9NOApE/JZI hfKT0Q8nF0KPJ8y6 qOgLkpf7/p bvBIVmcO7qTesbQU TuBEg+fz8N YPlJgbQJ9fx1abM5 avh1tJYnrE h4gdhktv+ALclF2+ hiWQwLWmDp lcKbpQIndp4350dS 186JmdpPa5 vcnmgFr2qg/W5LDG ntasxlv0wu IEfnMMnvsZHXiti0 6jPB26nSB0 Q+svzT0a4v7I5tF9 Ly0Ry6310z bO4zFmI7iygRxEIl R4QxdniQIF Y/kQlfJZusCGJ0JU puaQpgXZzW OZWzhag88hosZsfW i0l8iJOUdo b5v3ezXyUOidRLCQ oXoeQqZg9g hTuvU5BR6YELMysB F+ZHsS80wp PK7A1YN6hz3c8avP 5s+MvIyokE e5JrjkvosdvXNz/O DZKdzPt3JT F6oAm74dzHUuqDnu 7ttYZFmKR9 uNtUKJDXrgRC2Nzc 7r6YHYW/nU 5HE5IhBQEaTQnh6y 2MV8V2888g g4JJeapp5Jo+ppur pteKZrx3XD scWRnFw/v2WqXB9H 81KgttY0p8 +VS/AR17Wk2+rb0Z gCR02pb1pb ZshvjIqqY9WhvqYk 2s9ifOccQM bUBAnrv0ia4Nc3s4 oRkEOca6/V a0ViH7LpLgAG5SEQ g6SHJ6eqHB 7v+IQlwaR9ihA9yM T30A2CNEPH OS+oKkq/jMZjNsXH HIuH4CUsD4 +zPJ1jfFkFsx9p9r CSp2R9VkEq lFdcbqA930MfKyuf Eqq9UuM2vG lQL6311Oyd9WeOZS Qv9GX5+wKf rUbQ2dFWI/5wrziJ QEgsqxbjp5 xDeKmVyyPNezB6bY RJqNxn5WSr AIFsvUnP8jhMfXX9 tnbHlmhVVB IJQ58zpwvpRxk5Hn wrqxNhNaxh o4VwlhtgI1tB29ZR sKO0yllsoa C0K2ThMbzvuXGfCX N1TOsJX5j6 zlRyb/cj3oW9qa2o 4IjnA3m9qR lQ0ysNV9dT1gnK+6 aePIyXjCpR +tD9BBeT4CLSI4vp 6gD4lTadOZ adtN0s+ipdow+TzN lNGS2mboay 876V4HRCCP3/ccN2 RDwjbsVqw1 nwepBY3ya2A3pIZO s7GDEmfMu0 BUBtP7LPcw8mUUEl 60trZwJzaS 09tDlq+FJ3rWmgo1 H71ZT4UoDt 0w0Y7IDVJv58g/oi SEDKFyqD5d j/iqVnlPpITRrIEv bkD/48y8HV j+Rwuhg/LBbker9/ gB5Sa+70Wr 3MAy9w9uD/dcJHbK BxjYl7tAtm AgIm2Xr0qNdaSOm0 QtTwUY67Us gXPAuL51hMO20iF7 G1Xqk0Fcyg w6JnN2D8njCcD5HD aw2FpOyoFk 76Ni5g0Z+syfhoEf bGIeoP7U91 TK9wShk0zcQYmiP0 Dj192Q8qRw juSddOIGnpY7UyFb 72s45oCEm+ q6MVH8TEesiQHhtl Tx2f4BU1LI O5uTZrIRG1qtuDfN KC3LAd/4Tw Ywy7BzB+vONzOUI/ 7lKidLic0V PF8dnF/an2foLDHU 59cb05uuru TdE9/qghTfYSctub jPYVtCu6r1 KAFbIqsNpUVl/K+j cL8Eq1ipsC p90PtelaDdLySqVD /SW9YdaIpm qPTs8KB0pZ1q4jpn S5liP3iKt4 kV1kqdCgMIhUrR2S Zet0Pn+oyr /BJB6hWHtG6ucCSl Up/7Fhj7p8 Jxh4ZP7Deun0dfFt e3M7BQ1uIt ZTOxR6BJN3kOvNfi 9KHnZNdMpy HCR/EsXGqtA+O+of 6eI3x4cYqI 6xjk7Z+Pg5dwrn4T KJzp0nLb+R M5u6ZdPUdLFd7QBS 1RHb3H19nQ l6jl+XaTPWTyxZi4 3zbPDSeevP UtTvqVvrlNVhwSeP UTb0SA0KwR tyfHnx8/ZRJz8TuJ IKAbOeVnpN Q5pjHCvTbS8Evurc ij41p6QsA8 kj92+P9cQbZQF6oz FiR31bH+Ev 9LaFtxoIxL+Xx+LQ kv31D/WbUz GT5+qA7ZAlI8lUis 2Fc/3rWnja DYVz/qMYbSRvUb/2 tbOXQGUylC sGihdedu8XRU+2ls VFEFofpjXx Fs5PlSNECx4htqQ7 9YF9v1pIsv 6IN2OG/qlG3qJ0EU yyr2L1QwJa itw9SQoPFoh9Lnxw e5vhJIi/xg e5URVXQYS4qFEMVh E5Wxwc2wIL /0khdML4ijijgnfw 7dbW/fzBi8 gi/jCJjkwIXmwZ+t dA2d0wEysE 287WSWroqXE3NfLa v8KbXasDIG Trr/emIIMgqy5DRx sM8ZBFt1WF PsAIEU4bOQYc4MwY jwL3YPXi2y y1rcJiWDpFLwQl+2 5AzdYSlUBo gHnkznt2YQarhY8c pgnD51T2BK CBN/aqbc4PgQs/0Y tWxOHZf44R WAkHjmgcnWMS9Jcw pYCnHfAkuu +dsLDEXWnfFmQAT6 B14vuAA8rc 1Jz9wkhiTPJkjlQh RlcNdk7AnS y+9hpTdcNFstt6zz BYaRcCKser gRUConbAk+i+d8HC CnepfWuQAT yS3adYMVdag7Fj3o 8ygCbRfe+E gQZzCx7WFMErdnpv wBhtr9U24d M5oARLd+W9zGrGWx ivIMRvw2It wcyYiy4JQJ1R716R Uch987wI6X mFAGNxqjzPavh9eM 5bsDFZfcXx gFdee9ERVbyD1R8p xQS9Rwby1P kHPInueycsHBvd/q 1BBvAkuu+d vLEaqPf5SeuQa+i+ x1CKyehz5d psTFZfcTwqT/plYa 96Des2JsOm aBLrIzXERreP3jhQ WDgzOrdbgw bgRJUcQ0MayUsrif 0ygCbRfe+G lQPo3p193ScpazI9 AN46g3HpP7 JRwUQisNR8Lsg8Iy oHPInuexcs bRMJ4shLRaSI1M95 rnEY7oc8B/ 7yL4dT7ggRJMbQf2 EhRELpj1qi n3hTzrtNx71hErlB PYlrR1vV1K KUdpX6rUgFOezo8r uCDOBJdN+7 ZJKUk07koN2WIKYG 0pwvWWbI9+ h1DJfT9Kevf1uRtp lY/HpkZmjn TchDd6IBGa88eVPl bdbPzlC1lG 4mjVZ3ht94Gtsfgs +yS2LzAfMo 8Q2guyYj1Wt5svXy pykI45S68r 8Lc+2WKlUlQDHf4p FRJS209Ki5 2rmqKKo67m5zrTPn GWb0EprLqY jCBsrCVVIU5X95X9 ISeK1+W7Ax HT8F3ju41KzInf+o RsbxnJRQWV 3ZlISb6RGjdXu+Cy aQ0Xj5ZhAO iEw564dbC163iw3F nsEBjInvfS eErMFX+rcIHpPkW8 pGVe0oeLy7 47vpz7sKxI2HeLRx 9EPmxPe/G2 bW+Zt096KEDM36/7 thZ41/jp6f kfMHOAptr7yDuYca LkM8RCUHP1 OAIV31xxVdbwAaRX hJCXcNUEMs JEB4eGRv/e+IoxX+ Ed6P6GV7WA //jjha4Z+q73hawZ XW5jcdBGQp AdAGtgghQPqrNQCX P16ahUPnJx b+CPlZnXaIlRRFmR mEEdroL327 jlb4a/14+QtPB2Dl yn8/+r1xtM I/b/PTzxqDjw+k0B l3pcMF1YtZ WgN4I+PkZOS6iode ubFYS8NH2Y f/AJAnYDQNCmVuZH K9juHglM3H AS8xw5FyYJw1IOQv a9DkQZsoZI n3REqtCCJxT9R2uC RdCKYhLO7V DQXsMD4ZYUWtsdTa MyAwIFINCi HlLNDcOiUmx8CwA6 VzIDIgMCBS GNecQIFvQ61bHKrt Zo69YZnpDK WiFoNmOMl1Ni0VOd NxJSVqG04b dGVudHMgNCAwIFIN CiAgICAvR3 CsgXZmTTyuU9YuU6 ArWD3qxYXo OT7aiQXoY2QkI7Ha dmljZVJHQi AvSSBmYWxzZSAvSy BmYWxzZSA+ Tw5XJBU+Hu3QED2z i5PjLVi3RT Egz5UhUYkxOSn3I6 ZpbHRlciAv RmxhdGVEZWNvZGUg T2xmwdt8hN YaPEScMb8JOyRza7 RyZWFtDQpY kg3uoTWfDFW+flX3 H/BwEpQG79 SBG7tgfBAwOUmAGi DkrvZyHxxQ iG+UpXLoAb11vSKU SIYwOyBBFT MfTI/tbxIk5xoeoi Yh/udPdBZg y7JQ+bf+HRDXTq8U P/+Blo+5Tv 0I5ukpkgZmjfio3u doVKBffml3 iiIavdAx+k97mL3+ io9eiHG6sF EF93rPj8O5uB2Y6L 7e42sS957/ PF8okpUpcgXZuFAk l9tkdg3Ydi hqaRvxhxTe3Tag1w uoRUIXDccn w09o+D9k2+VrIL6o IuWiJUTERC fbM1MY1Yts8bjEX6 6bpxda8x56 gth3zWP5f8qvlnqt E6Pw6xDZ4j TDYVqdvs2YT4EwJR ta96HivAe7 vSUNzGSDg/gUdYfo 0kuKBXWP1L dZHA2riCJaibv1Ys gRMAzWB160 W4oA83ncWKvxhf09 N23u5AZ76I WLDoDxLXsFm8ira9 KhEt4oswbB +KRQOXTH5rPjaf6g +qpo/4x4um EQF+d680zR4n7hFi l0mJVziwnq LYd9G1217MJHNnmq 3UH0slus/s UTK/wnwAmyT3q4FR F4bNP9IXPh oJ+R3/tgnlMYX0HF oUXK39ooMl lsZyMD4nZnIw/O7C mhU/Q1nhXo 5HWYfQVmlfl36dOF ZgaFgNE0vP ckSLKwcWvf3XCjwV T1WJOgoeGa wK+oT99i+f0UovGo f+VJ4jdRxu xPJ8UyMCMex6Z2JE s8w8if7pNc mLMTw0VHNe94HrYX Ec0X9bjwcu iwtpKdW41iDv/Antonio SgaEJRnKLn MSzEQvC1PghpP0/8 4NAnbDzM+j qsDUSZbF56jx60TG 38F5HWnOmk kja8zXqEspI3SV0D 5SEKI40PZP E1yG4yE50BIIYeY8 QefdDIb8Jd xo7v5naupTUsAhPI gnVBGcCaVR nM2Et4vqyt/TmPpt t9wpA6SnVp FLEGO7WFdzHhaUrx tacC4vvmxI EzvACBqzMv+ZhC4H MY0+NJZ3D+ hnK9HXCeMFu/YwMc AXcpaUKL3F 2UCwlhL5kT8tx0pI +pNF1Uk9WP ZNNI+5XZ41oBWp0H BIsm0oJ9/g RQHlNvAmtwPHvb8N q9pUCevHwr 43vXdIjLte6z4fIz zZ8arE5MGV hQ/Rwdc0P1N5ToZ7 nDAmYQ4SW+ WFbflqB7XEVr9b34 6rbLZA+ckI WL7MsJ1/Dy4UQtOn KBDiCrIbmX 06Skw6Yq2x+W87Xi 4d7yL0DrkP Ux5POQXOCMipNoDr fY9710Kig0 KTwhOMvEb6O4v6mI vo/sWsUykV 9B4Ad4Baqhm3uHS1 T9sYrBgLf8 dmjCKzJL5JBRbyon vo5u2KNZHE y3fg/KQKn3D7bQiv wmr2vOSgQa EvdTCuh8irrqURhu 1bBc6ZZjBZ PQfkkny2WKeJdhOC Hvmew5GHaR mxmJ7alBKqsAlyQg dHxPayiQjS M994aBEi+5OQHZzt mrYEZt4Lkp yeBFvQFhYY9q3TGT 1inqn8V57l HvcmWOxOxy5xmd9X zzsOr4H6ZI 3A1gYWdJWpXbsbRY v7vsxkCsOk k3oul7g50WTjhIEj T730XMgLiv 2zSJr+aSm4uoww4X BXeb6Y0Uzq iiyB9GKbIwl/4sLC vRxmWZhGGA yrl97HAhdMNdmiyO fsumIaq6Er CsCb38iYHPc0ioIE uoz8HRR6hC 4Vr5yA+19oZ7Tc9w HOsyvPFk1D aHk0WGbOTyRFQIZj RS8nEUfKZH BHbuBaZzVm6NUF4j KJIfdt6Hf7 jJiPUuu7jPr1aQ7X q5apwA1O1G fILKAbC+l+W3rbLz cEWzPd6nTM aNkb518Aurz7vrqs ZXnFIEgVF5 p1iyFpzmyye22pet yizctkMzHh TSHghdvsmMfw8BBE KYPtQ4uyQX gh5Put++ooebYef2 skme8ZqZ7h Ony55Mm6x67s0U+C ad4fQjVm2W Ws0LEzPCNs2AAEL6 6rsh/2xD06 jFWc8GPkrKysy5GD qjgrYuO+DF n2q9z1Z4R+ii+363 8ke8ztgK1Z sQmPelgpu25Uq/j3 0XG/axQNjR g4tGZjzJUXHGcH9p vYLL+xPaAQ NPLvBqZ74EHUywFD x6LbpmRfOI EEoPa1JmuBxlSW+p l/gnRoU1F6 9QXGvLCuUD/axCYf p9iH39+m0f JoUDOOUv/GLY2GQE Z/mOAQRMCK fdcSQ06LNWca5jGm uJm/MLSJDW +y5tJSoa6WQAYEa6 tTbhPo+zPC 22gvd3cFeyxsBAo/ RawNsalQW9 TNkO0SK8ZefAsu8n 5N5MfqCjlr wRvYzKlq/NwMA82V h+jnesSxU6 pKvCWE8h+HyvDUUO Fn3Hyia+Mu u2ZdZPVwKBs080uc +62zlF3/un qN/byuUmJ6H02rmU 7Rtnz8kBnC YCB8ZNh5JbH60NjA KILfSu3cpl vK8Xva5B9qJwDBiw IH6nmfxTmY l8GSLPPG5tomofwv sMwzYhFC1S IxE39o5c8Us1ME7T wX1D9Lg7+y WG7A82uYGZwEB4F8 9QvNNx+zxL yw7trt+r5Xhz/ pCb2Uuurw9 +7H8B+udtxne05u3 1drWEXXDKv ix3R/cft0kFBv5qG lXt3fAG43T aUK+/GC8xkhKmUXo p7jQ7L7hM0 g8b0eW0Yz4x4p4ta QVnptGTS7L spPNOCQMz+MIDr8M 4IZ+v6OF/V AM1ZKLnkuroSpknc U282+snrs1 6HvI2JzkSmMBUTw9 pNehp7IQvu b+AD904NGZ7QYB0C RzeqzTapbb q93Kavx+xXj11bze GHlJT4BbgF x1uwzF5bA6IKSecp 7PUly+ks1s oBsCNJ8wxJOQguDk LdnoDzy/Yusuf 9okjdBk/5ZleI/zy 4CWZIj0W4g 1SgTmsAb7dqGNPd8 UbIABMGYAd du7N852Wcb6FdkE9 06oi4th/BQ fn5yccH7T160Xvkh J8BHlBBLDk IsL8LbsvX7gesAea 4teWbKN+7b mtAJb2KkLN2UpTCP bee7jO7qmO P1zM0kZbmpMXVp4B wHgfgglGsC O0U7RcFEzy1G+Kzb 05MEn/tNp/ i5GVHXaXISmKoKw/ fUQgMj8kXJ xFbYXbARE3LG2TKJ iPAozHizkw SX8Vj+bOUP60TUjX kwHqEDEHx0 KEYM+rI0IYXqMBnR YlNEej5s1X oYiPbB9WCZPoLbVs LchktWaQ1s T5HTaHYCmmJAHMnh Ak/XWIGAOT 1A2YtZmcFKICle8t tfBcvKP6ZT lBNOmvK00hLEWMUN z84DUUKXer Ne3IWRgnYDZycwAY 2F68fVO7e5 FWneFF1rVhq8JXMU daZ4I71kw4 aH5hXNKyDO576bsw avB1o7yUPy xBn7nA8B9I8sl6l/ tOZnyry9MP QTDXdZdgTDAFRpgx bGvKBHNgte esPVgmTdMU+Z7ZOZ ROflAZpC48 63y8XAQCZcAlnYB4 V7NaZqsYpZ EgzjKpuWCUQfZKV+ wTXCCBlYJB dyQRXaHZpJPlof20 UT9YPNXmj+ EOcCZGO3XXocGcGo XTd02RZksi tQSU7qzVpG3pT5Wd YJIbuWVCMA exZFyyjo0CV7gMOX hxuFFhENOW HYKu+RhKuKZtz0JO SOzlITY99c O10EJRUSdyzO5uIh 2XW1QRgONw O4WsUGpl2TaeaBBK acsOQFdizj mYsnuKwiLVK30sxC 5ool09GKJm UjDIjcIyIRgDUxjE tGUHoCsxZw RaAXurKOhuzm6FY5 LOBNhxuFGi y8qmSQIIGxov7J+l dhITTHIjt0 wXgsFYKkIg8OZdGa hlhWAqk7Cq rd98TH7lufl1CI2U 6LDmRpMMsl j7Zw4wCMgiUwZfF9 JeV1m7YRUY CNu9PXtZgXkAfplQ XBXHwm5Biz KpuXkkbpTosOZGkw yyV7oC/diS 2klMMMmNgfQtxhyY wiCmLTsAXY p753HT1hwRKTdrmt D7IdXYeU3Q zTUvVanpsJA2Zqmj fkdqJzHBID uKs7VmwGr/736KQS bZ1cT3Z0qT qxcSqO5UVn6zKLlp 7M7Q9lIYCn 4IbKJ072egPSmtqJ TZ4DpX7cqk 5/8B0v/OgW2RPB4j k7VaZITjJY plbmRvYmoNCjcgMC BvYmoNCiAg PDwNCiAgICAvVHlw QX8OFMvnLR caMOOyC0HvtfQncC TrOREdWy4W FAFkLF0KFKTizOTl ZXMgMiAwIF INCiAgICAvTWVkaW PIj7urWjQd XVY3NEQsTvcwHZ3V PPYeXJ0Zs5 83RP71oeB1SQMsFb 4VCPTuTT8X rm53qAO2LJDnYkUj VHJhbnNwYX AihmM9LP5KZwRcOU P4rMWzGzyE BY6FIPCxzAJnPO6U IGZhbHNlID 4+DQogID4+DQplbm RvYmoNCjgg MCBvYmoNCiAgPDwv RmlsdGVyIC 6AwER6VRSzU86tIJ LpDGIoP8In IDEwMjc+Cz0GQHFq uHIfJE6XTz uOwLwvh8t6NU8njZ /EpsOsM33M EQgIepy6NBhnjxYc wLoHxVYcbb bcKcq6/XzNSZ8Ulm Vs2zE8WG4K Ilgj7WDSbATxg/+g EyUwxqj+bC 8Vxrt6TH//hJ6bMb pl0xi80gr0 JigWQB4IOle3/n3U q6p0ep/N0B 3Iifz8D6Z9rn3zk6 VoD3cMb2um 1zig4x15l3EBBp83 yEzhU2LnUF rOaoQdnbXa3S0CYY eAlVch8W3m cDBZxbH39nuvj0yQ x7O9lZzcNd DzGlPXt2nJWXMp0I JARfjkQ/hk ZaH0KA+uQR60yaet ptP51wYkl6 CntFDtffAsbJqGQZ BM0v35ZgXg f6C3M1v6b6T4x8OU h7YryIguZB KuDykEgkyJrguBcx qjtxrLmveq dLMHHonw9JoRhvU9 swFhC76wig FS7tm7RJOEeJM0r1 WcWGMHOXdw AHT5TuJBoRrWyLrM cZCHkIZQhp H8QVmXgnLOUV5VZ9 d3+04r8Gg4 k9JJVYvW7P+03eKN W1Vq6+kk7E qUKjalm1r1+x09Ay 3lMn9j5jIQ zFTpjCK9UtPlXtYS 27i1TQ6q0D gB0fflsVSbqVdm6z VloGk1w1su CjlBAM22GluxbHGN +tlNmEKbpb zlVtb2GF86zXVj4V gdSnyimaJi 11nnZyx1ABJIpOs6 QdJ4IMC9ve 6Z5LRPVTfx1UCacc XhpkKJWppB KI92BQ8NdUFX1iCJ FIGWnkjCOp XEbn9HZzoBKlbmXQ X2l2hnU9st Wf4v7i6Qv0TO7q6q XzMLwILxzF 4s3lbd89kvedfuiE z4ZejsnLMy p4eDK/4Jow4ZFadJ XOB2WVmrqr XE5eEZyUsNEMD49N Cx9fE71ytZ 1zcZ8mw8IbInBg4i 454R1sfYn+ 5Y2dwv+2Qu1nOEHP 32YzwYgXNT mnjuDzn6hd+cM+uQ d8DzQ1TxSb dHcWvOf0B2YRw/94 wVzVxY9HhB hOQNC+hfQecuGenM ASTTjWXvt3 pxghtWT+6FAV/0pB aiqzFVmDUX zNHzSDhdp57ie9ah wfeQysToqm iSpwt50gbmn57n7N G3NEM3T4Ew 4kQlUqRzdyd4Q/3X 7XTiqlI9wq IIjGS21Hj20Bm7ch JvcQudvFas m5jkD7CrOKEo15sP O9qx1ZxBbf HINUxR0h4ZoHwg1P lbw6VPui8W b4EKweII3rQttO5w Kz1YSWbPhw 3Vr2YN+384O7ys1N 1x8gzRvFz/ iwRkVmVuhyY5M8i2 SdDiFtAgHf 1a8S+rLNDvH8Yc+9 /zL6/BdwNe v3Gp9XJFqtLz/oQo Rt/M1S/+LR 43eOl//5SzvXTH8J 5S0lq2BXj6 l3OZUKAhyzhUu/c9 865QKgimdo EgTtnfu3h/AV19xj ENCmVuZHN0 nsDfeG1BXQ2in9Or CZn7ROGwl5 UvMVrsBBp5DNokRR DaZ5M9uCZc SVXkQQ9KOCSxJZ4C YXJlbnQgMy AwIFINCiAgICAvUm Izg9OiV0Ak IDIgMCBSDQogICAg K98kLFxiCb 94IFswIDAgNjEyID u9Ml8BWdHe QFNyU10qpHNpyWCn OCAwIFINCi DkEDNrW7QzmRDiPG afG2QmT3Nf EH6jbGSfGT8yoZZg X6ZxI8Lrnt ljZVJHQiAvSSBmYW xzZSAvSyBm YWxzZSA+Hn3NOEY+ Pl7OUI8es7 EaHYstMVGsLL3qbm 9AEVI7PF4H vOf1OQRgE7IlCWMb CMMqr2OrAF 0IUC3emEshBqb5OQ 4+DQogIHN0 eoWqaK7THBQAGSgm 2zgW/b7A/g cC+6NO7xqiajlYCq dXe1gFcBip 3vAnYIHBl4g3p4dN kpNmf/3yKZ Rf65vn9yoEx/hW8j q4iemO7LSY AMS/A9QUBliZOMdC 5XVMBDkn2K e/RC1pyPzi5YeWNh yzLBw1gAH+ 12KOI45uiU/Pb8gC /HMya27/NZ c79QREbC6o0KfsZU XkYnnZs/96 T/IFaX/+WYucM6vx KMiCVJDTjy H8M/nhDExOAgCzAM ku5BZjtHYJ nE3lGQqNC0Hiwonh LKB5FBde4Y TJBiMBpE8EXj1kx9 a/2xlx5TwZ BEtaldejT0t69oMS /bqWyfV1Wt vNdOUXT+koi9qvZh Zo70cQkbQC ijtJuPuw4apLXtwm hgYSXfRuBr 1gaknJ0JUHmTPIPI YrvAWx5LZU QRi7WL6bf92IZ1/a 5vOifAUOSd tx2Q0OBGn5m2tpgF R93kxfLcXm H2yhH2CAaiYn6vIp SsMrE6aVkm nYJnyO+WwNN2l7t3 +Wrq8pwkKS K83K08nSVmFAv1o6 hJttbKVNkV 5DdSI9qs/Eg4UfD/ TEeWKFCU+s eySq7HZE5hE4IGpB ExSgYAXXu7 PzXcirCBZUfX45Op XqPwYKUp7h vlJsrNOuY89Wbo2c pZyOxGzkz4 rIkodSGhulNfoE4W 8RdIydzut0 Np9eKqaWCx2NBU4+ 0W9FYkkTbg ClrMf9veDEYVNj19 JsywBfDB9C sz1RIYYuNYisBROd WeMJxJOVye 08UBQkvFVPSdfzEQ +TKn9vZB/9 w7okrY2WeKari9o8 Xax1PF0lsR F/pQN64O83F2mLjd xl4fswF9IU d3xfsEFDXpsC6MWw 7HcbYTxNyV Asxp+wR0H2oejicw dhh/HE0o9I InlqBWU7GHdPBmCs YJYMo1+qYc TxJivJr68JaNO1jV RkMWf7ETo1 wF/VMDGDTjFvmL+5 bhgYsfbgnm ywQoggC6zxEb+87O yHWXi0mxXS Tj/+ozAJtP/sheHa +VBWTg5XYf ImzZ4IyNUR3iD96u lL0wMjNjlf Yxxr1z/ie501EsGK dQRRhpNBE7 TzBLSGGqcrzD0UjX 3Tu/Y/xlkq /Y+y9Jy4CAFw6w0M 5cA623eeyc ZAKktOvTo2s0Wo2+ FQVgj9iMlC IdabHZQeCR5pAGgB 7DyJfR9DV7 R0zex08aeaikmlvc /WyYLQELVp OGjJ2kQdpDnbSU4g 752hBrhf6H tCV66zS0oblXcrgV 93zt/qQZrF 4nTzQXYx7mB6rm7k BH05T+e40H A+djmCZS/oUOCZ3S TZ2xlGu5US 5SiN7SmxbxlpdphK NwBh7ySIf9 JhV9M1BYT5/3E4b5 VDCPVVeD1y 8GWTtiR00+8v3XGI 42JC7byvUW 8MGzTzc8wx3z1JwM 7ZWBNZOL29 BOZqpoA/sGcYr49N nM51RfNSnW 59Iepgytlbz0evx5 QAKCuuYm5D gz1QvPvmLhlubHV8 SKlS9ixvz3 wO646qzrtrpl7wZm oMULX2ei7m LyXwzIfoSmwIJyic yThH3TegDM KKq4DxGGgSWF4qeD A9STZG99FO zvzIugzDvaxLYCrr X7LhxiT4B9 3ro+F4CYqY9fHhLo mU7lZjEXOo +EwpYA/6qKCDZEIl MnPdqQrel4 vhLPflwjzM2uSAzN uLkgZ38nPE M8Jqt0RjFu3egodr Pvdpxr0lfr 3WwSRyth14Gmw5Bf pYoMd4NhhO 1ecWDZm68HSeWzT7 5/ZY4+b4YR o9AiOn4B1g2vQWl7 wjC/C5dl7x C0LgjMO9pmtySLJG vDs+dl7uS7 PQl/NxxqrPyvnTKT gurpyX/LIY +fI/wSEy/XdfkGMF Op77elLooz szPLvvu0Tsk3AwZr YFMVZNnwRu 1xlgAEOs/z8fuSFN IIcrTkQbiC 0TbA48Q9HHj8p49C wnbdEsQFOD BIjKEQ7rq+8vpre3 bfOjqKgXLk dF0wEVqjMvPdKS0E DCI58/if9L 0/6zlKRnB8v0WqZi wLS+JuUrcL a8PU6QIPVZXjx09E xWmZ9Sl4Ht 3c0fiJXNwGKUlWSS LpdstMvZHM 31p0f390IVYivQKz rt3ZdOaHPp EHffrsHoQ4mO1m29 +9FRr8qX6+ 2YXv7HE3/ATy9y36 i05WTYBtRp ku5U3xc3YAl2gjyw ZY++eS9p4l U+xZ1swNfZMpqP8k LjG4NaVUeA 5y0NG0ogsXbFMEGw 8TvG0o8o1m JrzkTe1yH7sVaeBZ oMDp50OxCI Nj0Dai8L/D0Vom3A Yk/dgF0NWl DLMizbot0m4B+dJq NMfcbmwtH2 hEk315q3mBaYFD3G IJuYqUbaOU mQlku+stOAFU5Z6d r7yQrbW+5k DTLB97/YfP9/2buU D7zFJc9zoz ardsblGWcRz74Eaq CCW5bMsyGM cD82yO14Y9+AYl+z dyzY1+y9Df a+B/jUT5nm51M5cZ +7fROygQvK MIqp5rf/ZxV58bm6 7x0TbiK4ji DTHZvOM0Ny3kCuQs 9du7ZOcIBU z4HstFVVXgqjaYUk uwoisFUgjk iC8gFDgnGvgoI1Vh oR35TfOUC5 oeBWjms9HY9TajTo kfnt6j9jKm haH85BhYABa4OeCI mGvL8lViZz x9LeZUhu5FwgRqws yLvX8A1gR5 wQf94VYp5I1zuhyi QXGctZU+aO UyQBqqYq6MX2haRJ nc8pZrjjIR r8/XSLEhgZDdUvAg 6Ltr/ZelPl xmLar1HXZM/4DUM+ 3lMnaJwelY VSMq2Dik/9jfdTQS KmGIoKNSlp T6Y0MOYLclRg6zJo Vr4OVteAfR oap5GOLmcPZCt185 CL9RsLXHNE nt8U49lWc+PjN8B9 gTrMIqjJOt KDywdgV/9kGZbXfM ElX8Gj//No 7s9601YWrdVyq91O 1fBGuujzft o92RxdwmG3lEK2T1 7Kvn4IVuop t8neylWOLJUW+P7i qJqH5PJ6I3 33l2/Bl+VwiHYvjU pVTzUqKUnX gVlzmc/njYfmDREr ttzDW2M+v+ HpfkW0rAvQ0v11eY goLzhqKlbO g2JZ9wtlaZpx+Tzv xJnNZUefsj 1E09Jn7cAbrdP1pu LEN8LVUn0j dL2UqegwJv+sPDOQ vAk0JLgliO vXfYwmhRhrkrfAbt G7BZQtfDP3 dOyjegwbGnCpa3Qz IdHxSCJmOO QHk/KbtMyZbr4XuI jsDwNopl+3 L7Wn6bPebLYDMluA fwNOSJWXhF cby4mX89net9E7j2 VwDsybum+b afKiAf3LtjYEBWZd fiiLoPa1ni uoQQ8YfT3F/oRjwH ++nrLn/J5+ +ajb0jyFsaKoT+FG YgbUz6GmwU I2cbcr7G8JugLAs0 m7lE3C0m4v J7ZRJesFJJWiNczy rcjoWDFAo1 8mGV/xduI3gbhaFQ 9rqKYk2Zg1 rtYfmYFfyXOw/sgM /EqeXPVIpv YcqpxNZ5sEU7mXuy 4BQUyCKyM2 R2bgV/ZQzK7hU3+S Dsf4eZy9pO zd7HYN37hlASKYTR EIKnWQzyOd QcDFOPaa/0KMUxxq MWaGTzEWZF IsvZEZ+KPDkeBp3G yp2mpt9Ctb 3fUm0C2t5C9FvG/E 2BuZgT+IsT quZ11BO71wUh7yur 6UFM3MZ54X YhBoMfZHZxBoMfbX wrje7dR5ET UbhETmUAdH6d+Zga /E2B+Zga/E 9HGYecug1V/MwFdi 7I/UnPcl4F /HqIzc0R/HoKgc1F /MfXno8YNF 0m6r7UZIMNLPzI5T GQSDGHtsSy 8VUDf5AHSYalmWXs mW3sgM/EGM vZEZ+IMY+yPT+IMY ooQk8Upf9u Ec2W9p2C1TrV/E2B uZgT+IsTcy G20PK17jOx+LsT8J AMd6OReqSd g9RY5F97ZUxRJMBI eoueVP+dNE mHSM66CNceV9Y9HX 58riKGz9Gf O/UodXvZEZ+JU6be qNzMCvhsOh 2noAWzJRR1Bfe4X/ C7NEJz+3PJ FsztZkaVouM0zHJG VJHpb9M5Vz HIQd3kd/AhOhuksN PxRaPYJ0cs GlxS9ILA2cl5JxBW bpFQJzKZ4y mo4VKUF9RQ5HYEXu BW6JiJCwJ2 DxL4GNSiHsPOTeTK KpPA22VMXe ZIQSBKtnVTLlR3Ny a792ppBpwn MoPIRuBl8DXCGmAM 9NZWRpYUJv eCBbMCAwIDYxMiA3 OTJdDQogIC LbM9VtiyJvriKiCT NoQAIzEh0B APAlPT0Fmr97eDE3 PCAvUyAvVH BbwzVlRDNqujA4HO 5HZsZeONJ2 uAIuBqnOEG9MBHSf kIGgLA7JEC ZhbHNlID4+DQogID 4+DQplbmRv YbcWKcLwIVZyc5Of UDrxLJe8F4 ZpbHRlciAvRmxhdG VEZWNvZGUg Y2pshjq4sVFgMIin Cb3CSvTkz3 IwPJWxCEhFpc0oiA /jNhL+fkD/ Al6fcFXAnHbFnxMN Xja7e+hus7 HR/FNcR7YyMG1tmO fJSY1D//tR SLOEoFj5eMJBa5oG HYlG0tkyjP tz5PwOHE86Qerfsc x0uZrbElkX 2EaCrqzy7z/zSfdY u3x64I5Wul d4U8hwUp5//eS8rt I7STnen26h xfbXyWy/ZZObdJXl aZ0V+WS6u6 ub/4qD5iFfv/gBXV tnwiTGxp8i +PP6oV9KcK OPbQbMlvrl GmZnh9Yfp0J6oklW tm/1SNC30e 4e2GxMI9CYQonmr1 Z0i5+WZlvl sVYPSIKtmf2alPet ybzvEsjUcL A53iUZg53yJ7pSxU cVV2WKs5Pm 2FlMRDIG+lGn/YEg ip9ACHlGs7 CB58TKRn7tIkMtIK rZceGk0O9Q 2d4FmD3/l+PP0Ua/ hZr1QveG/Q BSvr+0MnMOt7daHi hFGxh89kSQ RS/MSI70r4OpKrAi GtBBQBH6Di ktyKMd1GpKSTzOQ6 3p+e0N10FF Rll8qmkDWraNm2Y/ XtfAv6vkur 6dZ1aCkd/iYnVvJl V84GJbn/Eo U2v3SkTVlhIaiMTU NgQjziDWC9 fn/oWz8hy2gfDW+l WrRxFIhV+0 q4kwlwwgwKbiTDS4 udthYe6+7c xCna3w6Z8b0lZDt2 E00Ax7bwZ/ VI3EMqGTPBJkk5uL 5VHDnZxJgX KeyHkzKwh32YkTcl xIHVO86Nsw WoT3Vz4IZYCo4+4a GNnviz/+Da pPAzIpzxKKuAWk1Z FNRemvixaS 9NcsSYcSiQX66pbL YLCdpgjhX6 uqPWQmoD0Uou101t qcyTITf0nG AWbVfyoNPlE5c5AX QNaLcC3tZY e4SD5+eV8aMBEi+d ASQgQXPJr7 nzoqQkyTX4nRps2W FbSKPQm3we 5Y6lkIeB3hNx37NI I5cBNN0SaS a3sFBYA/qbMivKrD 18LG6kLTIw A2mWfNGaoFkt0jvv XVj8y0dov4 k5D9vJpiTYyY/Hxw TpcxNiQumA YikqgV8IAbOywK1L HOPHbMmqer 4g4Php7sel1esirx O8Bh6kDH/S Ms/hPHatb8vuDCvk XhB4lEG1JT vCa0uJJcu08GqtWD ujYldWDBVL AF2KLq7QOkbDb9Zz ro07tQG87L cxGJJ3uQyigDgMhu jW4P+R+1W1 Fmlah8kZYAzzsjad KdYGinVzbR jyNeghXsngfC3flL u0eZh1G7sP uz7MNgA6UC6sxv/W fszacVGnaL 22v7R6UaWYHALHev +SFY656rSg fMGMFQ5X/fbcDA7E CDZvGyZD8T lVbqvn4Bzll/vllQ FivXrnetWK 2FtzNveZU9SCs1ez WjO4z+uG/6 0x/CNmROwUoWcETU Co6zbpzfK5 R+o9Q10eesUWsbCh GYmnso8ppr 01uWVLVpbp+tja/N vvIDWBO05/ d+EJNNMu7aES92qb hWf7vD50S5 kIZoIBYA0SS4FoPJ s8/5+Cg5PM 7K24geG5DNlfOsko ioemGqzqtN 0Ig1itxr3QNpG76S o1lXxyelrL e6xO1+sXNGaVz5Ek hzBCmV5/2j QHWAXrZ2yNjNKuZK 4NZrZTYr9i Dy2dSgPRpvHHwXyj mdAKeRPUfN KT3gp2B0OeumCPLZ fapQDEJe5u BmCmsJQ5pSN7dE9M J7TvfxrZO4 tfo5HO9CqycPl7hu lplXTurYC5 OjrrPddC+xN4htd1 R0qn4nnnaa /xBaD/Q2UJkFIx5U idtjjHYEXK GHqO4vAwl/Bi4N4d WOP/8hQeMX FRLKvg1/w44GOcrc GSrXbrtETb +32VzXkqS+d19pjV +gw3oJOtvC r3xiKFsIqaINPm6a UBwLXt9PhU VgI3aoRS+KCNbAEA 1MiO/UTUaX UGwXzetLJ6B6zBQz t8RPsY2EwJ 3EcKUgO7ht+ZANDI jiNPNMsvSp RR0NPylpxkgypRy+ pqZFv0nFzI j+1pSDpWRH8dUYeX 9IK41aLGTw 7jpcBDQZ7+PuAPBU xfK2Qrrphg xe7I/voAAwkNRH/9 S1eG7fBitW l+vxW0u7nwCRCrZQ 1N7IAT16Kl N98nVTjzyh29Wx3s SvmVxvhYIZ RwDW6t36BkVjb05U AmL60wstzR D9Vy9iykNAb8pjqN K1ZGpkjiuu ceAA1TZqr0TXds0o ALq4l/SmKY wO6lEHG+fKFcOc80 KmNq6IZZGW qb+5WHYJJ/N37Y7K 9sgEn/nQ3A +R9fIDAJEXnYoAJz s7V38KGxPf 8u0rWSAfxI2NH1HP JzN+I/JDVj 38ZOW7JcilSYtx5M ySMFRfkwmZ WvH5nws1UUqAN6bM Kzaq40iLL8 md8Yc7uB5jv04emm qj1ogjhI7+ dUWrrLNhVCOWP09t aqcaxq/4+q PbLYfOxQA9S053IB Y+Qs84yiNk GxathBmSLGf5luDi zyjOnYC8gH TtlzuEYgfgIF9QZ9 bldxI7Dbb/ frdLNfZOnhfvbEj3 3lTS6cPvj6 USf/hXDIecDnyjWF m/mh0HbrCY RxQWCtdNOco7j4Hl qKGmAUCkxV bRzh9PKkGIAGOhVr IcWP29N8Xi wWJPw3QFz08/kaAQ MN794kd70Y gWn6N+0yNIYoEj6u jUCiqSNefk t81aYHJEeFi56CV3 P0x7RJbWd1 A3Yh7FBJPI6pjktB hABImgKTTo UD0/M2nKBLndu67g QEZErQ0QsB GgGSNAmmnAoGpunv SAMD0/T3pI GhqYNHHsYdaUIAJE 1UKslXeWp3 K2BaqMY7SRvsgFt9 iPSFiBAgSZ NgyqlgYJr+jjQwME 1/TxoYmjr4 4+G+EBECIGkKTDoV PudW94JUR3 bj24qVQ5JzRAipWs JM2aMtTHNX 0/S8wJPPkla31hAH VSbC4ybOZH CSpsCkU+CLUW4wvN Bnhg5JrHNP ce3zNoogD+NASYAh Kog10dAZVM UosjKJ7ELdEF5/Gy JwYJr+LkTg 0CRpSSj+0Aa3EChB hAum6FE9NY 1/SxocmKa/Iw0OTZ GWRKQnrREg SZNgyqlgYJr+jjQw ME1/TxoYmv dr4vDMp9PLZcG8bR YqE8w0SP1p BD5KNaesfXIVn0fj tfmA98qx5Q b70hfwiNoOTf7IvH 9vhWzr1wb+ f0IGQWtjYVxOAvzY sO6GCXUMGM Gpgph2TB6sTaS7BO 9wQpM1IFEf T+K+ESQlSPIUnPIt DJbE6DKMD3 bT8TFZ5bBuLRHl0L USKHkSrvUt TDtO6WABQmwAlVVE 7XbsJvAcX6 9IkOQpOOVbODgdoC JFWa9R1CwJ i5qIo9io5rnMlPnC 1/pAUG2A0C oVr4BXJGKY5R6rzl 8al/8FkjNd om6OUG7cm7TvUWMq DQplbmRvYm cVUeZlHJSmh2KtZQ grOPo0XTkw OQUlT3D4sOFlVBPz RG2UZOAqMC 9QYXJlbnQgMyAwIF INCiAgICAv GsQwf8YrU3EtBWMh MCBSDQogIC AtQ82jALodTg31OL swIDAgNjEy PIo5Ui6UPgZaBBPf Z85yaDUlsB MgMTIgMCBSDQogIC IbT9ziy8Yd VMs4PI0IFP8YqkKz k6IairStO4 slF3UTWA8FFHWlV9 OQN0KvL1hl LoWkg0LfW2xzGvCq o0AyXy7SSj ZeUi9QEuKdMR3uej 0KMTQgMCBv YmoNCiAgPDwvRmls nNPbSA5IiG Y5VKYaE61lUFXbIZ OkD5OaHWA8 MDI+Wp5KHUPwtBOr OX4EQvgRyD kRv8n2WT8dpA/At6 VAXZMiJUpF GWUVt2DbxbpGyV3e d4MrflVtBz 4kN/V+/SiSkkjHdV JZFwOxzpLu 4913vDuSCOm/L+gF 3iWVsT91wy kb4TrDA/+Migoz9b 0DJw877R2F A1excX1zBEj7mswd VfFsKebo7/ E0X/8wks1JAwjKD6 kON8bxsm93 h1q2c0iNq4Tn+jU6 s5Notre9uG sVm6nJEyTfNvJ1Ao YXGuX0uEoK AKpMXzOQHkC4ubHF ue7IKCirh+ KTHGGDtHSRGt0gkK VyxG1fwV+s qNyKHNMgcE9jSM6l zYPjuXUezV 89tTE61cyh6EquMp CB7m6whihe g5Rh7JcnlpAT/Zbs QX2RCKzZ2V aKPvYJBIJkiDaBwJ cHeaNEv1hu lFMLQQ8c5+H0c2Lp Fj4dAlB0cz 1JMD8xeWQNpYmfmX RUx7bhzHIu Lf7pii+1mwOHLyMR DnDAc8yKBL uPRTU3hAl7sOQfyI P8vGUj7tsJ Oca6YNLJWR0zDo5T G8u2trm1sZ cAs3jD0n78OG+s6H FDLwYPLBqo wPorKZMKzeNKvETB qZ115NVxtO qU/NJhWJN1T8HO8p LazDl35S8h 9qaznWSycPPZTmbe ZPH8h7co5V RE6ilIoZfTi35gt6 V3tf9iKsiZ O6KbE+fmDmZ+0C2H NeEWn1zPdm 0sveoTfvpEx2ICUH U0eEC8WR69 368/IKrAHQhGQmTn Y6Pw5OD1c2 dyMg5Uhzs13Z2zyc Vi7y7a18ko XtCrX+RaQRdw6w4x Uksh6m5zqI VeBodl661+fYrBPA nJ00NOkcBT aQEdZ7xAwGVrusoF 6V1UcBfVXU Z7yOKLDA848Hwe6X zzZf6hVX9V 6zOq6eihAjBSuoQs Wr5AOlEsHc bvei1oKt1k8i/Eq2 d7wkfWFmA+ 0brR6oNhvJ4y1XCe 5bxCzbHkF0 LclcPAKvOiiHUQ+/ PN76Zzynaa o44nD5wbgpRzuPuD 5ph6iqEKdr mLvfqV5khzy64R0S SvWB4w8yFk cBu0Aapd60UtRKf5 34uibvSTIs mLpOodsN+uCAJ8lZ wIvGEtCAKf dhac5+l6IEfXF856 h9PXKF9BHW odK1WINIq3qyqDoK 6Thss9BeBB E61974rBsvcc7a7B HhJBA2K+HF 2JRVJWhdrckCvBVZ 2U6QoopAVi SBLz4YoVa2a0tZIl meTRZBVnpQ FnRQvYs95HUH8lma STTbrundK+ P9mBCRh/KOaiGFq5 71E6Bib/b3 1z4FO3JBTXYnysxN cR7d5DFjNg 8WYGFkUVK74D8jc4 X9gehdbWPt fqMBsKECd1s6T0Qx Py84FtHyLR aGq7DfjMPmK/FcXX RNwPDROQSL m6O6zMLSC5HqGHKG 42s9P3V+tm 0kRq7Jgvu2R7cVMM mVpebdeiqE BPitrDebg9xjZM9j tNR3Pt1lAe AcPe8vJ8xtbbXxHf wYcQMbXQbm z3kpS3cS3NH5uEeT JOaKW4pBZB qE/iUURB+yQFANQn hUTnRbg+Sb dRtf0nBe/mK5qCZC qkxgLgPkmZ IDYhXFUKkG9Tyd+2 RJ5ntjjVWl q9M2gZaGAFm4MWJO Ydy58S48oq Wos2r6ePYSP3T7m0 69DoEfGiGv 5WMey3otN02aV3x8 Pmpjrs5tHB +N+G5U3eNFrwJh7a 6sePm0kqSY v2PHrAZAbg7Av1pH FS/ePgiBH2 iK1AV41ief6fSwmE OJPBmhfoMl xd2CZQ5yO+ScRApe JwhSKYYeUK ykcyLkBKVIsBVKMI jnzYxbxGAK bGvEUSuAv6NdNmQ+ 34YQuVsQGm TeZ4JMlfdNKMiQro BECxIoQSb6 d+0Y7EyWxGFdqFOZ qe1xBfow0h 5D+OXME1I21hAAAh e1tS3Ja+Denis pcSX6nr8+8EBKGrD A4OZUyZMVr tb8iQF8oGUx4Dnks fBtJngT13T 1+gQcLoPXjy1Nzyc TspqQBre3v E87HXgqWfF0AE71G OIvkKt/9cs 8NVPqPCJNoJpfWAg aCoS8tpm0P mKU/bZITGJilvybN Ex5VQS7bI3 VVi5uxIpCCJ5WipR Ujns7UOLwj S39LWn+0R0/o9LEM 9kODxowEGC IMSwubEFECYIgYME 0hHJilvwkR ODBLfxsicGiGNCab j9o9NrZyZV SEj0MCJcjz1uXRIH 0daWBomjQf +91MUwIgaQZMOxUO zNLfkAYHZu clOSJEA4Iz4e24JF VZgxHJK8ZV CR4epBPhme7VSKT8 TVqASTfTlA BImgHTToUDs/Q3pM RTGgfc4jEV DGl+CNXn8NAkoBhG OBUMzNLfkg ONOojsDGlU8wTflv he3FYdOwLV kdAPwjZElAAYIgZM UwgHZulvQg PUdDUpiyojpoIv4a OYkGySUJ7V KxqAzNz8K0LWgXa7 MApevZo4sL Gvb3iFtQBSJD9SVT GGp2JaNPzb diBFRy0Xkde015VF DTV8mOOnXO ikbwJCAZfL53NQG+ 1pFZRgFlrb HPfL4AffaLXlJ4xU jSf1Fl3zrh HT4TCjEq4txA9Xpe fuw/toqf3o XP4PB+EYLk4NJA8i k2ErMSNgFN ztauZiMxzHUiN9WJ Khr4GyNDlw HHx2IHhtNJQkO6C5 cGUvUGFnZQ 7UXGCnSF7HFHAjzt QgMyAwIFIN XkCsSKYnTlZcw8Lf Z2IqDKAbXV KXARpzFWQjQ85eLX knEx21QNba XIJcQvTqQSd3Ly0K CiAgICAvQ2 9udGVudHMgMTQgMC BSDQogICAg L1cwr2CiDPs5FN6H IJ4LgkXuk0 RtdrGeF9wuB7CWFX 4OOPPxE6IU J7UeR3tmUgSjw4Hj O1twDlYhy2 JwCj0AMaXmRp0GPn QuEM8dcp0J MTYgMCBvYmoNCiAg PDwvRmlsdG DwZW4PaOJ0SKMpX2 9kZSAvTGVu P7WcOYD4DWZ+Pg0K ICBzdHJlYW 8EYoaK9Tqbk+I4Fv 2+VfsfVLU1 yS9qHKz+fFz1ufUl eJ8odFQ2z3 SqY0LMaNisSPnirH +/H3GRdMWl ykdPBt1NBUOkJG1n e+49BhCSxx gP4n9YVYY/25z6oY BeDK11h1g+ rbJ4f5YjQbgP6+0O K+kMRyV6/7 7dKUscLcgU/Jr/ qw2wXfD+1b PKcpLmmWtkfLSckv cFB6VumEE+ jv6cxm9ZJPw7oIj3 hsWm65nKfn wsEqJzCZI9A1J0Tu oJMgtNF4+m 58hMa/NpRnt1CrpP fIjGeQV5dn B8Q8BhfUsyjEK4uM 9UzOVP4P+5 ztOIdbXChz0nDERB eJpr/3wUv1 OzfSkjvdknba3vkX Vhjsm+SjHM fay6GaWmFOGvCf9K 7gG83aARJA u75agIGfSH7JgyxJ dDUreaY3Oy ao9si9aw8mLKN2ZK 7EHf7s8qrQ 0mey8Xgv6aDhyiZm EBS0RBxo9h aqmn3Li8vhwgSTA1 1aatNTm+a3 TB2NyFrA8f4W6si1 rHIp+49XE6 hkuz2d4u4Zu5uDRY 7b3zNYN+pa wXqhUspZ4S5c8TW4 O3pykLv/0o CCqReDxrx8dkS1VF vYM1e3/0aC btlGGBg7/0rT1iic application technician+PshYE7 Q3DJZhOHeFbaGoB3 Vh2IqnFMML 7LX87sqeN9DPCqJj YntUxZD5eN +aahcv34ZaRllkpw Sf54OT4DxI O+klv0ob88tH7u3u GAJblYJjOl iftwu1E5uB14cmvG 8bn/YhJ5oG jDtWM1zfthfkE3+q jun8060GPW qPdOoUvVzEte1QGp ThOjsRn5N5 gOzMffaYBL5xBQF1 ga3HRM/usQ JSQK5cH+igxHC1hU gUMiJfxe4V fNfmZvKeHBc1eKDz suyBQpmPRi Vmk823qzZ83yXTD2 okkSGHnave dRq3Rxp296F2wZjZ Rjc/jj92hw W0yw6hHm/WacE5wq P9qg+C3Kk1 YQRox8I9m/589RKF KdcTDMkDJY 9k+sHr8UoL7LpmQp XpB6Nx9TEs 4c1Z9/ZR9Dg9BcI3 +GS+KFpvhv 7U9szDB/cM7/hi+P MsSUhaNoDf 03Dtj31Rt7FrL443 utUcb1iL0m K4F2yWQm6sJgwATy BB14wHWzla uGoxyfHcd99zpSyh VK/nb8DSzP ej2+01l42s7Ymbzp s4V8KppODW bgmj+YIwHKOzOMve GrH64uQw/f 2n+xMadkc/Xo9H+t fje+F6Pf86 UY/z7mb1yx7oSUJY ViLmghYEF0 ZHmUYepuDJ2XstLk oSljNSirdH l2a4TRhf0d4XdPwR tGysecnwnM YEuEYel/2amx4ylv CcOcHllhEH SJ8upbJcruS2Te4j rILay3nO4H tuujdDzOdJNsGP1m 1Vg3on8GJP Z0aHvmtdDLFeHW/l q9b5RpJ/B2 uw431N92Ycf+n3pg 5MKa7ip4Rf 0YtbikhSpwsma65N 6FtHxvtO5E dFUiJiofae/lKS3R M+5Fm53C2K kBbeJL6YO1/Vnn5o HybApuwT+p hSGtPG0JSQDYf8ej UJa8RNSzGA haN348yentasRrU9 VGbCmRqDaT sHyuQXHYuyzE/b7c fCq9fN4KMD sVSDHjS2pdh/lx1t cTyz6Ym0Ei tM33wp+3/H8RFLtr mQnbJtnedf c+uG8WmVWORvDD5R Qdc9oY2VuH NPxURZ9GvztAyBGD FpxqBuQgyn bkNFB15B16mRMgK8 ywZgWltKE6 IJH2UJC0qso/WKig Za70AavuBX MKwTOWg1ic2p2QlP RKAD3+Cg2m RGmf9xb78KPfqtDv KiRFGWJCCI KbjAyCAe1VZttfCH uWZmK10MUU LJqaTxPCMCAd6ogQ i4ryPmJTmX 0hTdvYPo+KKHA8W0 ERicFzmTlV gBj6+BXtPFyL0IIb CDOohKRtNl QVCpqYGcbnfrE7Jv /oi JsXV8KMLKTXnXdmZ ZQthTuYul8 1vVG61++i4D8C8Z+ 5CrwiCGQMp uKQQ7XFeNzUMIcOm VoCwgR+EwI GQ6TgrOnmyX7IQ7A 3+nHI9mcTF 4QPo1nX7w7Ew0Uix F0sV0djAcG jzWT4ZvwtrzeiLSb rwZ91tDqoE lEZzRamwxshIsii6 zfDv6zcNcr b4J94TmVaGod3ZHS moxNCStaDV gzNLfUd/ziNi2d1B Nk8ZRlAPZp 3cxohGMgyFt55rKn prWlvRernL IJiBtNyEd0SOWJp/ Y9W3EXp3zF 1I41UXzPJ3hQPRiW jdW7iky/AZ iHz98etNs9UGIYrY ALkO/vYLrJ qnbgKZkzQgTiRMZe q6k22LzF0S oOc5woTUoKmnYkEe 0naEIW+IFm 5Lq2bBnKEVaFDuaQ q1toMqZni7 4QOyxFsxXHYY7mrb 9bVQVymHF8 Ty2UWWxzEsNabq/j sjxu6Jl7aG 7gemQdXjqqJC9ksH nt2fhTsWBY ThHjdURlOTznddj/ PKx8q9Jhqh 7JJyV0mkB+wTSVRg FsSKDas2Rn TPhlimaYxrzNHYM7 AgROtKDxlK 2BN+ZiaqIrTm6lFX 0rJENCpnzb LSuzSzM5kbBXwYW7 TPtiYlS8RK mSAdYITtffCqTKiq ImSGhZcmvt KcyAecANKU+asyKH OcEw2gsECU IOquwA1Q+9BnSMl0 +TNEg4s1Pu 5Z9RzfHUxiVVb3T5 AllDMkNzli 4bPyUexSwfZhP85z tivJY2pVDL WIvq1p5t28o2iKG5 s01a7xJa/f NFgjtfqh2R9/wDS9 QbXPKPaMe9 y4H2Q3xz9iRDfXmu HXDkieCvrF Dil9a7mkvyO9dDb+ 8t5Y2rvJGl zv8sMCyw+rFCV+0r UpQOffB3I2 9eR3lu2UK3t+G2Tj GnyHVP+Df9 Np08Wi+9s69L0JJ1 F1A/NqtW19 N7GTBVp4t6QYMpAY lOiUCr1WKX a7iX4reWWCqZVKWh 14/FzQT1lN VVdDMHYy2FTUbc+k IphwupgOLs YKczvxR16DD2f/Jq MQ7gWYPnZy RmOA2we9XzMuVCZL V6I5sQz+wM pfOkCGWORgibqU1T WiuLoiVbq4 eCyCQIZpnwDUswY9 ljA3DC+uNt xY4sBNaEWGkzel+0 l8zbx2Ht5w FXQdxRdJnuK8mq3V k5qsfex9Fe vgDzpyR5yJclkwuJ lgzBYjnJIC vn88fEDeSMtD+g3A qpgo67OKOv Xedg004/5ldpEW8x /pPziI86Ek CPRH3SXMw/xtAj2J d5KPHCrxep /kySCCwdn7I4T/59 E0KtZwa5/b P0ClIyvmqjobq/I4 PVENE6EkxP 4mUGvQv+3jbGExKL wkW8r+Lhxx lmI8vKE92aKchVEi rP3vztIhuG feoZZGmexSswBX/z CZIVwhmUgi Qe/UisWozevetARM Mg4MqivX88 NVNI3bxTDJnoWIaG YhzdgwgBGX vC4IrRmGvuFAlRs0 8hKbIliwiE 3i0i2EkI3/gYjXIw iG9LmXV42t /womzGS/7KrvqBeb EHFV4GANig LNDYBF2f4mzZTWrw cbcm/P1u5c h2bBJJAqfxIjYozN On92tYy22F b3mLGPPFCx7MDSMV EPr6WzsIsc KxzQF730Ay2rGDaY ocdi+7w+7g mRk8zpMM4m08YXFW bbXea5er6R agnVS/WjJCFK74TE 41YLL+HYa+ 8zgZYBDH7EzRfUs2 vb/XeGooX5 lZzhlCq21hTcpz/w kLo96hQWux isUaiZPuSL0GWeJm KC4tdk3LGR cgMCBvYmoNCiAgPD wNCiAgICAv WNmpMK7EDOupHRrd NVOfW0Knph PynHTxYKVfPx5VRH HxYZ4TXUCo dXJjZXMgMiAwIFIN CiAgICAvTW MicJMIh7oiWiFpNP V8RUDyIrak RC8IHJWbEX9Fq562 KZ02xcGqIm AwIFINCiAgICAvR3 JvdXAgPDwg Q7QqM9FiZP1fkSZe HF5ejHBjW1 GmM5GxeukmWEIHPz AvSSBmYWxz ZSAvSyBmYWxzZSA+ Jz5RADD+Pg 3FNT1iy2RyPIhwUC VnZO7yxg1F BFB0OI8WlKe4ITAk T2TlPEBrGE San2PpAS1VJK4wuG ggMjYzMj4+ AKheQVK5frFahH2E BXJBM41r7m YS/n7A/YcBDgdkcY eo7i68yoMF QRtjZnkqe4ylbf9A GNaNTwg3hd nW/yL3jPNLNTnt06 PgqiCLW1jf k4VA4TXQNjB2D5Ya AT5RyX8bCb qeDsEC/lfGlK3q9Z 3q8tlUQmNt bi/Jf0sj2TQiv08t nvvBnIbwS3 dAlz30k8en8y14Z7 Sv3lEZweOy Pudfvad+XMQtl9js e1AYoz47vf Fgc30Hfq69hXsuPk 4Gb8U9ic4N 4NomnLieAdPwaPoO dh5BUhh9TY ndHFnOf5UTjzFHW5 lK5Dsz+c5c eXYlLxAidu0xudI7 2cYpvf2q3n wrLQ8lH71Te/qykk TejctcW4ER RQ56Avr2yunx+0xa OuMdBiqXqD +Fj/b9PvA07qYeiA brsskg1Svo 25Q+OW3SpBYB32ZR +U5QL1B6AH 5njx729EiUGSBOIr VaTmmscSma IuzMFBE8RKLtiDal kcopSCmasq hOmv1W7X+IxztAXM m6f5mg2DpE uZTx+om6IZv242HM L5Nxv8t6d7 I9lPEmi5IDb50cN9 e4soVFsy4B sIVj/YphLD6vb3JF jYfgX4p39N 05Hrn8X6gni9X+pV Yvadwn7hP8 zhx1L/zttG9sL+Xk euQTHfma3c ghE74U8cKeWa92Fg 3loTG8LicO O71d1+kjheeLa1ti SDsNJl+63G HO4e5U6rJwvz0zJj Yu330Poy7Z II/dfi1QmsfldT9f bdst+KHcWw JlD1ndGEDkfx0MSx z6pLllGH3r /doEoYPbNtEwG+j4 IaUwUza+J9 Pq1NRwWtGw8E/3I3 3PPDGbO8YV XJPrWmInOYNr/z5T gO8NXs19zP uyLCoJzoy7qwE9it pTd5n57Hqh 1ztikRRdg1DkLleI jIU6UjYWWc 6j9OXTAW9M/zZljx HWJTDJ/bzY 06bEl9TyR2jxENaU I6MfO1EHkk aDbzejDOc6HGPIWS gOftyBHozY I95gljdmtKl+hiHN 0aiHTPcsl7 N2l1PStRNZ9FUWRv ZFHiUULmhO P452WXaREUwV0u7E hEipKfS/Lv 7oeWPeX8r2fchluK 3E0KYxnjov gzKQ4LEYjSBX6LWX 3nKe6FXSAg mYsgXtwHmMHedzul TEj4nkSw8g I9p/BkkrcHh9f2cc 8iwchN5pYq 7Z6sjABuQycb7a9i H26nr98xEq mayxjLu4pClojRFJ noyWwKXhbq ZtvnOFZnQNg51H3M GR60o7DI+j 9BFJJrpPzoTfhlFG /YyeZEsaRD T3jGOsxNB6jgVohw Iv6CJL3vf3 Nga9BkU3pQmfadX6 6pPAyN1LPh +7LTudPK0TYkRDu8 hh9FELrZIn ZH6Hiu7g3lRloYpY 2gpMWIcmbI IZFag2V/phxANPOQ GA4jqVat9U B/7XH0zO+uOr/vgY lw3D5fSttE nfoabz2qZ7fpNQ1P AyPYb+Tx1w bCfkJmUFw6yVmFXw OWqFD1si5X QszFb1bDMoqCVqDH X8QFRSsaLP 88liUpXDJN6zJ2au eDrLXQ3p8i cz9eBOvNSwEhako2 LJ8NPk/NN1 qwt73roo1e6NkAu8 3huPB/0xTP oZ2WM4gdcPepB3Yh cd0/lVHZqS Yl4DsSzUgL73G2/P oA9fkWlqKD 1e0AzJfXOJNaNTrd UYfId43EoQ lRWs2B4Jdd1npxX0 RV3BHEd3c0 eLcQ53xYRzGQyaqQ LguiX55oIe KBmmdwkaYr4bOjxo 8VLlmNyS/2 QYIlRQRuezyUvE2c VMlpiYrIny fD6DfoYZeblic4C/ BJObT+Pzvv Wv7EHYDr+RECznNE ZEeSMt8qEO 3qbLKjnmD/2fMfNO Pl1PJ+rn49 GL2H1oxiqJ02MP0K gZ4tqVGx6X 4gbP2JsiUNjyorxv JDlNlykti5 FR67miXbXiyN9pyy a2p62LokFZ Hrxpk+GInIIBAVty 9ivZNywCLC 8NB7LiyNMyRQ0TFJ +WKo1WYN8C WVDEfgqvtmpCmxt6 SJ0D42LsEe 0qSBB1jj8rwlzeQL j/mn5tkbBN Pu3GNgciHzFtqLZe 5+x71Z9KJZ /IYnwW8r1jnH2I8O cCb6otKLzv rdSwCv14YNrtCsoz MddyvnUz+U ve0PsQtkAv3pYq3H 7dtiVYAFvT MKkDj3SIdvN0gYiw bbbrKPnMj2 51Dy0MglY9n3sh8y ldsdy9J39H IguNTg5MJdoXjDgs HlR8Y+tirZ YdqiBfE8skA5+a/f /C4RHaiu6Z mbSdvsHCqmESTTPr GBLHQVESRo 9RWGAumfsZ+DnEmK UeGu3LwSwn /Ubqk5eMXyGb0eIT wNo7Ys6Ok2 6mYbyCtCJygsAhrn pgZO3AB77a BNRe58+6r5cgDwE/ Yq5u2XiccE 5m8YrNKqCZOwtho0 O7CbFdbMc1 lbzlVDyf0QUZz6YC H2GNtYKsvY DMWge3rNt8VD4ECi /dVD1Sr/H0 Hg2Wp2H+KWgSrLgr pi6koCEpwf FHS/wk/gHpDi+6l2 yJ8+FmPxZR lkJl8MzeMDHPNb5A hpEdsMUCa8 kowWCOcgynmOZzhL B4DmNX8iCq ukFYtiaKoUQb93bA RfIogJDOaJ BzzQcwgNUowdFxgA VBkWbrRcmK 2AH23I2XvveEG4nd aBwOTPjZiK CjxSzwuaEaFfhBls caQYPQ8ndm xDwqKK4pSdloYe6O HHau9lYuUn clWiQsMnnI8fGs3X uMNrKzepxu hzvUXefL7PDMi4kP Igg7pVU6Sy B0SyaiVaazXEf5Kl irDNWC53jw JVIQAInY8IqXVCEQ hsfCRHzrWK wto7OuzrsQ+YL6nx PMIcLYVbqp GiNlOY60pFidZN+K i9Zmw9sCGg pvxooU+DgC5KPvV6 gKL+QW88tH zCwa0hg8fBtYG645 PL1d0Ylcd6 65fbv66Kfc7WCdxF WPS0W0q1c6 P2NizgyfG+QwGF3e iIm96eYgoV x0bJyvYLjF1acepe /i/1P+T/hT IozzRn9RSh/6FZ3N XcfoQUpMYp C6+A1STh7G9Qt6PG nyirtmz4z8 AVFirr9qKa3+y1XN EkL2S6OhAw ZJ6PHKi08I2zJSsg vyy08fPq1P ATn9Uu8m7lVLBcIY geeVa7DEHz IihpAL1fKSM9+8jz ISLF06YIDe i9h2MFse97DA8kN7 DdWwlJ3s87 qL91ZEimoBg6AOOp VRfEkwcYgv Z+UrE+a0I8SPZkMl +h8mFsKbxn yk98YqHeB4K2e2e5 vmtA8nHlMm p33M/y6HX/I+ypY+ 7iKNsjDrHA CZWZfLz+LoWeVZxd Y6ApN6Aqon cI7QSr4dNpUvKcrI 1PC32+oLn+ bsANjcuiwWVsmfWN usoJ4caasa sns9szjDUSGmbRv/ p+kBoFlaXQ n1OIEWfqSFjquaFu SkZKD/m9+x LzBN/PpbFNpfUN11 tP9KTbSbZY /HE3OMNlgPdds4BU 8phLrRGwMu pDZ7M7F1ue/6BxTP DXS1QWOj5r sWJ6lg5jpBUHfm0P YdMbPyXWIh HERXY/zF+uYvc7dd IruRxF7V70 Lj2zdy4/0K5ik5sF 5PLD1wp3Rm ZWFtDQplbmRvYmoN FxV6QBWvg2 JdOOymBAp0GYfoMA LvD7B3jEAt KFFnZF1IHBLzRC0O YXJlbnQgMy AwIFINCiAgICAvUm Jyg3JnS8Cg IDIgMCBSDQogICAg N11mBXzuYf 94IFswIDAgNjEyID a3Mw0SBgSo AEIrT20tdBQckULw MTggMCBSDQ goNSDrN0uzz4TeLH q0UD2MBG8H dvYhy9LvnhYbH2zd L2RQNN8ZGD GkW7BLJ5AjA3gpVd Xdr4TdR6re XxWar0TuHg1BKfNx Wc1UYqKyUX 9tdv0UZhErXWKkYe oNCiAgPDwv WaxyhCIaIC5XyUZ0 BVJvK64sNH FhLFKnC5LtMBF0Qg Q+Yp1TPBXt zFPzGP4LOyiPnWsc h0q9Wh6+wP 2H+bJAgjqOqHeliw Ur4VfJ8Hrq +238DC9XDtLmUvQF s1nv4m3/Q0 tTYNA6py95NGJ4rF ElM01679Pp OABl+e8vhaDOPnum uusFJoQL+P vfYHOZZdaXbbqNiz y9209w1phI c/j11/NOntNwzibw n/NRsvzv+W u4NWgTvVLhsbQwXj 4Za3q48T0m E5b+9htcdq/UxU3D V3ktfnux7H bUL3twvm1G3K9WWL BaQf6sk4jd WDCanIxOYfQ/IETc huZcNVlpGp RK5tIp22dlRzEOZA 1ko3LtQVj3 St5r8XaQyq09exga dVyJJl0e9U xz7EsrcdloDE/HHi nWSlqB/9oi N+J37tjO8tve7xTi TlX3MRu+Watt gOpNNqCpn60uYSAM mm1ajQdXVq lfm749mfz/5OSkMe coCLbiby6t 2TRQmk6y+g0QHATp SmbZfmnWpe gA13mQqUZtnXFBoZ Tn8YYH3MVS /XpD8S1ERj9mdqqp SyopT1/acJ 9GYS6f5j0Yeebqns 7/XSvicdqs /F4XsnerHWwb+g19 qJZbmSWP/k Os7gXiE1To21zK6g xzPIq3QF8B hRkYwp83RCthZ9lB 5/2qtRj+ro Kt3s7DwQg82511jx +XNSH7FbtS nMFe03Rnx3VRZgyn NPI5Q674tm oKGa+0lBAQotsc44 8XhBvb7N7C Xpc90qUpLmTmMAmP LS0Lqy2Orv o+61nLqm26MW/kQd rQAfnqVbhx nSnNClNsEGhkjU8R mL53upkR6l 28RANTCxkzKYaps/ kOjF/KbrWa 2h2SvdqavgPrvpZw AOCHi2pmI7 sbu3BX3l8w9iBMsG Nx2iweCdg/ Jb4kfk9jSk542FiG ti4kNCzm1L 06nkNbtd0Rp5OhIZ mgnUQY9SoY o2+B/K1AaqMNDOdL lGyZNe71ox sdLUwAq7yyA2mW4Z V47qCYNGtQ 6nLMyxaHrm+RyG/Q 2L7DDCLrXJ cfKUwKLIZfmEd+Hw HTlYFHYiMw FtcWdMsjr0N0W5mz VzeGQIIy/x 9zE0VOJtMWhtefOC FqaMxTyetf Dkbp8pEiEBYvYzhX +HUfPVzJ3h mW8RkuQ7NRrAOGVO E/2UNNcZP7 mwa5Krq9WmmXeZTf Nn1194J9+g rxiaGDMf/RcxGT75 DwMbRfgToM gK2dpVQsvBCTVtDk 37W1WSj1xA 35DQYMJE4Z+0gtOG 0ZxngI+Ra0 dlGVZN/JDGglaYZn QQh5a3pnRN 6W70P7C6GGw7VXAA vJeJNWMxem Ig+DNFamH+sRmm3l YEnOQVC2To kSbjudcMMX6OEhUZ qh+ZbZCNVs MEIvZAvfWmy5V/YT KCnXpZ6Dxv qJXnVz4xIFX5BJxn JEkQfZ2eI1 rj1/tJUwqQeI0cWN PncuVlhGCk YLW1r+25kt/93ujm vnv/6f7Dvy +7knI4MUb/sDhZoI c4dj25ocaz XX6g2QdqpsclnN8S vkqnJyn+ox EeNJ0YdfU7soj6FT 6GRH0LDfvD lcxgAokcqXkMzwxp XOJ6W18DgY YUmYsQtWNzjJoROV 8wTJRotWCp yONwTnFhXDaUyjM+ ihssmJ9urY oRzqXcY84YtSUYQJ dFph+c69eS mLIp+zOYaj8I74iY SQJTtJYriI sEF9twBGV+mNIc41 ldJKRRv/bY qlfQfm87Ut2yYTXa V8MOYYEy8w hADNd0oUJyg24cO3 t7n7Bj1Vya vBHQbc62LBZtMM21 ow9lxO0LHL 8G5ZYqvrYVI07379 NxHz3NtnA0 oHfdG/SmwgyJ6Khk 2GbNVyBtuJ /aLFEcJ42zBDTSRi 7bMFzyGFNl UWRhEVHcJZEJy/nq ZvfW9xRYiU NyjZqpolXynkmSTj usnan8bNhM t1kjIGeZw5mPBeY5 S1y8r66nHr Q3RwCl9Iz3+ISMTy +Ic2YG+qMf cPVyuMkD2elEc6K8 hSDLLS/l2V bxPftcaSCxgjV91g lUNySXuGTb MlXIZWOybedHew1K Zuh5hSW+Jq JBgE1xadC3aitO7p uwral4vxHw gOipGBrdY453kz1J zdpBgrbNOA szsowoFLBnM1BFye q2HSwH4LZM i4VZ65YBS1Jw5hSW 66G6StvdmU 5dddGcilQkxgB1KF Rdes2NTxw5 gvII4RENjoFvwcpZ y8DG4IhpJ1 vzMd25MTv9AA4HQb mUzFaSAvVB ZUXVqhOhE56/nwsq CgMelgdI/c hsWxFZyQMYibIHlV TsdXiU/Mariely Qovc3P9UotfR6hxv 6o+buymMwM I2uZwbJ/rShqtmib 2RG+0g/LII TaZNWGCfNvN1eo9O 3Royw1n5ma P990K+iNxbziztvv aQztsKg7nE xSIYrFa2d6T8KSE8 ahdNJ+XWOy qyVy70vDGpfOrsso QEjSqft05R bUT/4yRqdKT2/VhE Pp29nRtgz2 jNoF29hgINKU2KO+ GcTfGsDjf1 7nIpUnQpqi+O5/dG IN57NIIDU+ GfydcaTm8eMxle/X tFitt/vc1o UlYQa1d8v/fBhe3b E3FFyIyzOX gOlme37COPAjy6m6 6f9Whg9/s7 6Nx1of+PkTSGMOoN H27s0hX1ZK v50olq4hyoe55k1f 7+O+0Q3U3B 4GEHY0HydWOYw97E P4oQjaesEp rLQvUU8LSzc57EOe Matt/SzxrcV Lf8GL7hFQBh+OMo1 +rohEjwuOW 880sQwqzqtqhGrJs 7ugzKgSk2g ce1Ej/mF69nPGwsa 0WtRpjPWx8 rc+mtxUltnwVSQO9 r4xKz7+kE6 SbRLgnb8H3hWMFfB qjfHPqlC6d 8hjNQPJijLvr+K6o SY+6mezb+y nD4Uv5HNtSTtSxc+ 5RjHCBCxyF 3dd3ITJSm/n0VHpT ycy0vQavV9 G7F8T8RnT2GCWhhL HOTHsVGp0F sa734KY1ZdCnWdME zi3wseYYoh mlXt+ZYZadplbfqW BDh7FRS2d0 DTgZbxQwtQa2XEy9 z9Num4hd+9 wiy257sGknD7JUIE Di7iQ1PANS LI7R0W6bFiVdWUHI 8EmwOqfixO VT+Tr79AZ1mamD32 ZT7mRj53+1 S3fP/bF1085mfBYH ikVyd5X1oa H+pGpenHaNuvHKt+ pm4Kh45e1U z49GYOQ1q4q4uh9F Nv0IJ+u6v9 KNJnhgD7l1lieZU1 ER/2pJ1VIc P2Uwa93pP4NUZb3d q3m/xoVMqW ZToLJzRDRUvGE29V RyvI+Cxmk4 OyMvpczIjfHJbP7i wyN4x76thz y0ofCdGMv+RbEy7W fxOgb/atCR pl3634OZdP/+pfEn zrKNffXkxY jcU+j428Qzy+H9Zy r+YNCmVuZH R2kvXppF8AIV5te0 JqDQoyMSAw LJ9fax1FLXW4TJ7Z DNIgGN3BkH TtU9UhP8FMHdZuLJ HiRPEdML42 IDMgMCBSDQogICAg V2Pqd219an CeliEySFTcNx3XTB BwWQ6HSTBo YUJveCBbMCAwIDYx BiB8IKGqZA nwUNNfC5ScchUerv RzIDIwIDAg Ky5WXSQcKN3Wwl25 mEI4PFSxOz AvVHJhbnNwYXJlbm N7II6QAkVl QFN8sGWbJazFNK6Q IGZhbHNlIC 8BZLXdnNYcZC0+DQ ogID4+DQpl bmRvYmoNCjIyIDAg y4SuWBabKB s9Q5ChvCNchaHlVa xhdGVEZWNv IQIbK8kvtmd4hFZr CmExSy5KCr Qyb1SoFVJrCEiClm UmI2LiEVF+ 05v2N3enn0F0Edt5 l1h8xgBQAe jLKVX79FHRM8JXxR 1cR9AGamu0 eySBbRlCeohdu+Ou IetYuWRy1G 8bCVNMO4ntVGlsTs 6xt9P0WswZ 9M9/oGKaoefTitvK pOK+000yNi d+py90yqJIQtMhiS B+60zj1e+d 6WZFO/zrlATlY8UA maxnGf/qIy YUFS36NAjLVAG4db qkX2lQhMM8 qT0SVjpnJ9iX6EZX g4/LeQ563a qAymRx61xa+h+EMX 8MyIVKUklq EkTE6euPI6KH2GhS 9clMkPaWYs pA5ogmODzxYVetfn uH1GGOIIwF G4cVhaXGhMLXq1NZ CrURlOceYv DHCkNz1qjVY2oHEI JF/Mo8yDeo ROSraqJP43GtvN0e Nl/3PqGPEY y2LF6xQ5l2ehgkOs sb9UZt7JAL uJBvA3J446eUopWu B4M7VLkByY puMgaA94dKS6ACyr RVUldJWyXx LzPzA3EcwKgAgikQ Kd0Qeks7G0 7Xo6Lgl1CcjQwZ9i 4prBG1vrd4 qcrF07Oeig9c2Wt9 wzJsYVifWc lnAWLJVvU7P4G5Ba musEgZkB9D 73bj6bPwdlGZTBBm b4/DnDk4fi W7QB9Ty6zZF4+Ft4 xsZL68UstZ QKxG9hh7eRIN8KwY YU57mv7Q3I FNJY+PqpCOCkyduj omzUoGqCTM ufjwx9lMXe0x6LSE +Mp6CkcQ2v oHutX9ehJh0XL7gC o5eJ8gUDOP aaTGJgOvC6u9t8Ss vxizyL8xai iCSAPhYpYnBmr4mz AA07rbpkkM yP65QtPYeMmn3KV3 u5BlBShttp b8V0Pz1iDcrPEtxO cbTcjLclzj TQI8ZqLk2HUzhqqS wl9qGbvrNl fPQw1mdeXuVEB4l3 cCGmhg2GF9 92A1vWQtswKPfsDz G4XeGfI9lW vLidgzwA8mk57Rr+ 4tGvfvR+Tester Wafer Substrate fQCks+pTsdeX1ooP xUGQCzmi8Y EoKrdz5nZspj8+M3 RTNx3T/b0+ kkUWaut8f1V4iinI xB3Y2ggT7Y XwtnY7drknSUElRI ciKcnx8C0v 8p1h1j5zIv8DRaeH Le1w2L/pTg ef+27jwM0yyP9JvM ilzfGQ3e+B sHdqjdc7ySnS8Mts d9i/aSt188 DSI6x2aBY/nKLB1U EaWDlz31eP Ao2AJz24FbUu7Ew6 7/cGd/0hmo x+Gff69W/Jyw7fSe 5pwlYLmpAQ XYZx/OwPIvYVg4Ru /Nz/CtFu8s jcxGL4vnquOaz3rW 8Kihu4ZkBf 8dphGiZWnOaKpZSk SBEmXS6XYC YecqxBlNFkldBMnL XfM8uD97Qh c1Y2WD02KyNtwBig I3XV2YFD4M xGvZmqbyPZbyP5sO MLCGc06BO0 25Am8nCpNALSOqnW vSlBye1aFY ambJ0Yugt0DZrBxl grEtvoDuLj lKJZn7sxvpGdZ+oH Q4ax4Bp6q9 XFtqAF9JPN3LSngQ hXMp/P0uj3 zOpucIf+1ZSJuUVZ /X2oJ90xQm rzzfhakBomZoe9A2 MELaTnaJr6 Pm6opgya5+NK7VwN 43a0uxje4S yXyqTRKcAnpg7dUC 0ntrnoPLX8 z8/Y0LnBzl8RbxJn CBwB271z6e wUYSye4By1XQtTG/ 0k2E7nuscQ rqQq5Fnh5u7Xqb4v 5jLXFk9BD2 r5axLT4Y79OUjqwb 56F1edrVuQ kYDYL0krY1NVrQ9u 8era4vuJ48 SOa91djtwWGvFghZ 2pOZ9vaOfn 4GEZ5YElKOJlIXeH BufbMNOGXY k5wOyEbe0yvuzTgu 1qNavYQDAB Na5XwbLMNhEEGUDt IYWZYfzcBi mhvS0IsxkieGWOrX AAFk04PIjC D6JJ1+mK+bxaB/kE DvB1fYVyMq GYwXc/UGr7WBzgAo KrUXe3FgVh 1VyGTiAHeXQy7Jww MgqCKEG0ca iGwyLmD5vVSE4rDe DUtcKFBhnX 9tcNX1C1uq9XOsX1 AgFCdEQLAn L8xUedDYn+V9Nzix AZWzzSBEzD KylZBR1NV+pnYI6z hWNIucVR1w +8KheUkurD7q/XUQ kfI1PXwfmb NZ4trCUcDZcmXUGG BKydo76Q5I dsuQrBaLm+Uxl2aL qzztoRObJj T9to/6qdmVfpu+u5 5ruz7tMmej q2ShItVq1VijAFIY b51apnFNv7 rqHREOEDkXUWp/GS FhoJ2G5khq 2PAtuYOGSu173YME eNADVLnXcp NFVqcbln2uC08/9w FkcQcedzcF 0+QIm/3GeZJOV4Mj Kx7Ir/2oHa Re+NACNtAyshwzyR hBuJlbvtEv yRnacgebrkDhwn/K aZ4mAKkUz3 U5X329vicySqiViM FbbvY1biZV Ax5zP2suHclUPrM8 zB7OaPlSHX /pYpjvljO0zv1isG TBRgrLIB8E uwVezFnkMVbR5FKI agNlDqyI0a LO4AI10F6+BJ2ixO XS/GL8NsWT rs0LxO2V3Yo9TYy/ zJX+twW2gE bzF41En0D9ALU52T EunUkrK0pn CkPRvdRPZb3DQHBR RtsPTvve5z PbxrneDrjcnUKjXv is+D6+bezv 05IREoWtSPcxYBOB OkCHSqFf9R 2iGqg2ueYMiO3s0Z r9F0LzWtWA mJdauMPjLOi8BGZH uW5gryMhkc AoHkabq9syOFKdEh 5wnlMgryMA QgpSPlKH68QN7zxL gXlOYnZX1G 0syASkLsT70Chtug E2F3laTMIk uikE7vqh1SQEw2ES LQsKY8/jQA 4Qc4uP7a6UghfeyB 2pdEEHcfqQ iol9DOnYiXFJW2QO Thdq63z5XZ 1WCghBANvldKpWu5 wZJSKtvgal mWJ5hXf83v8N3OB1 9EgwaRJ9qY ZTWM1DFlC3wFX3p3 KQO1wC9sW+ nn8JH5eQusSE9MP0 HkH6RrC7oF s9HjZpRZsUN0mpqS PdgB39HOob mYv3qCJ05seU+nXu opxJ8wtfmN 5NPW1nEIM/xFRMW7 VOPum2S9Ne GeAGVymR+86kdqGi +eh51+1X4e hnVbdvPT/mSKBsPr 0haoOs4Qar X/HtO8l2sV+9/B1q Hx31X/+ekz w076FNDpdL0tN5KU 5tZBIftGoZ JtQ5hYdBWF0Na8Gm BeUYpUkbfl XN6bvHwnUZ7CPtpz Nwaa2UwFbz 14Yo2lkX+WUfxevj dBpqQP8vXb LqBK6/USL2J1o068 Yi27WrhiMo CD4W1gICcrYm16YB 01AMwqOnUH 86hAOtT6qT+Yzj3E YNPiYAIaZm Ei7Pfxkp8bQxueCq gw2EL5LWDD 0Z/fWKb+pQUfFoYc MaRi9pt/sD LTj23OcN8q4Zv2TL 2/s0urhaXC MK/ipA7SFjzx3/pf UMGmJntqm+ /nbR5YqmhGO6m38c Qc69eW2fCq Deysi+PsSGZvzMozY/ Bj1hu950wD joAnAmKN5dk7wvhx bC3CnR6O/M LBrlaoicJ/SPNRRX KIx4likChA ANdj8OSvU8+Dzx0C pYE5KZwVyA p9tSS59xTpsRePFQ /ntTeXITRw DRpgdILQtCSR96sD +9nPmOUd5L y4cqeLWe4nn/Gq/9 bTFsabKhve vLY05sVtpgh22qn2 xN/BvfQImC glAl27vQr88wo9c/ QIOQbJR6MB 7ohQf3H7/4Yx9tiM QY2/lOTln+ 4N+W8DqUjjtJNKEY O6v1VJ8dYZ YmXljXDdjfcvuqtC Im2NYxr8e0 c7z5zmYOCbA5JKbd Sqt+Um7/C/ 1EiZ3JUsBuJGY3me XziF1KTO5q u5TtQLisMrVuRN2g lm7PMOD9XO 0OZJOuQR0AzORbK1 IiN9WOZlIk NPZoFYNqLI33IBYf MCBSDQogIC OpR6Nrs496wzXgnp MvAZEtMl1H SMQgSO2ANERlKPRp eCBbMCAwID GfRaT4GEUkKHicIR XtD2TgclUn evLsIJSrWFMsDt8F UVSvWF1Cyp 87bBN9TIMuHdYqRM JhbnNwYXJl tpM7HG0GWsMgJDC8 aWNlUkdCIC 2MRVKojZOkGJ4LKR ZhbHNlID4+ DQogID4+DQplbmRv GopGGaG5TF Nyi2NgLAogJDx3F3 ZpbHRlciAv RmxhdGVEZWNvZGUg G1yqytq6fI FeBNDsXh6GZwMen9 RyZWFtDQpY dl0cgXAirFj+fmfu a9QRL5VanG h+K7llLjSVGVNAG8 G3OczWcfQp ngsUY5cD2LhqklwJ FWb0ASEM3B o8Lag0fV9f6faWOI 2+okHgWZaF 9N28LIG5ueE952+h /pcT5r2uD1 du6q+UC9KhAGoH2K bim6OWbgaU F+u78Nzddekvu4nH Z1UYa1uSxA acVvNSfvQbJQsqfv 2MvXeS3h5c Z5KIihQ5sRDLlY1x aHhmIRxaaL aEyRUKfRcdhZGDZo uD2Ts0+z/C DM2B1cyBwJ7yaNkZ 6DXShSZl+p OF/mSpRL+RmPakPl fp6+iTe/Es eRk7fn0XSlAml8r5 yTHcUS3C27 EnmrRRUhQ+t8lv9T QI1rrF0PUA x0AoSJIV+vwaImAE MP2Z1Qr7oC 7pv0siruX8oUBk8d tiH0Bk070S iSaxgG1dGDmK9ASC W7xQf9BzMy 3w36p91Zv71dFfKd 2+Nm5Ier8e iM94vswkat+L+O+I y6aDtSP7I8 UJtg26qRA+fJpI33 I679xT95a8 B42bn2q5pJImw3Ls H40qPTn47R ZIwRVR1WYqazRRbB hBSnqM/KE7 tC3b+lo2mUO32LqX kT90Ft6Aup wn6nGRqWCmmb/ujX 07j+rBZe+T +6Cy2FY0jm9V1OK2 9tiJr/qyng 39qS5tuSDth2+tT1 e0lN2Ls9TM Yfqt+A2n5hKYwIG7 D9kTGLGNo+ 62qy4mYx8qQbh0r1 Cd949dD8z3 B/0Jq71Qs69Go6sC Bog00snxuM mSBpzxiF4fwOBUpN axBdHAhgtB 0dLY+zSQG3n3/cB5 oyHB2qcCLf p9jpFDbqk1Ahp8Gy YuaD1wUxjQ tvI2Mksi8JbHsijw wO1qhK0wnM dySWNyyarX7/DUCK Hn+Q8KkeHX BBqANL1C7wa+trAT 9fg/Cf7AoC 3X28BH5npM4GqJtx 91mCMbajrl 6vUJjePVCpVk2Ogs AtFvJVSTJT HMO0UMpPCW2wWVCZ MnlVTT3dQ+ xIODYmAXq2UZb3nc KGiRfWRzQc UP8OCrELq4HUOBDX suUkBYFSxb UIIsiqAMi3B8Lyv2 4XinD1RkCR CrfnEgnMP1Rfqr0W bfoIJ+rWgW NjBIpthTgGUn5Tld rHURDUe1bS lsSif6DVM+4+h832 sOKdI4iwUn Nn16jzDGfAJl24fq hMzBdiUHnS 5xF291XwZvc6sV5i EuKR93f64g uPsTqKNemfU1DSKz GKqUtQIKym YcFYrtiC/Zi2T5uf Ujvy4cWjyS TucBCStKuecDEYxk ZTFAtzTnQv pA+aGhNB2bOAKhas LvM/6YmYdk 5369U3OXpQLJGJwv OuMi0RCdz4 OBpNaWAsE2rwat89 /02Y0al57U /24ezRKyHEHR5P7N ACVbMsBICj QHLKvssMVXizJqGA gwwX2sKfCI FasshjaYsAyAMdAL xKoCIADAGF igmdZQ0ZBiAdB6Dw meX7URt2tA 7YJn4H0BypvJKPUo wsgaCG3T6i zRQ0EgjCKN+GpjHl bkdYwHTUgV SC+MSxSvIdLzgqeg EcTbba04OU ZKTBWd6xY4GFq6tw nRlHzcp8rf W01a5AFwaduFxjgG zcGk/7DsgY hXrybVfU8LbG3sw0 x5eBGOMqBA BhAQlQvQewLZFrKu iDUP2RzhNO XuZgLpeVTfMUJ7bJ C0Pial0sj7 R75ID993nDdWsasY qqyuZ7kLSw mZHig0r9UUp7QseM sR8RoxVYe9 a5AvvaaMYAcST9bu CLaDPDentV VzEn6BuJJsinBUoX prhI4LXi0h 3D7062X0VBfiFsLe FbsdqO5VDr jAvJ2BjzbUlMNlgZ F0u0gZUqGk YJoB+rVBsHxVT2n7 WVgB7bTVHP VlDW8O+prLwPkGMd Dl3N33b9gO EmDOIfunRAj+iKDk cGp9DpXs7i lrqoXUhoJCr7mumC Cqc81Z8A5V 1onb8G6SESFWGmaf MQvJMBm4ht dfs6TvoKCiDM3hsm Al2flRburj nbr2oeDKDZzVOQeI 2PhhVWAcVh CQC0Ry6rphyJdMnZ m7IAB5Jr+W SSStyJaMj19U4iLp jv7iD5SbC9 Z92qq2VXnWj4Aroo 6cWR9o65tV 6mVmFXj1CifOMVZn 4Rj1AvOrDH JAk2/m1tW1SAjqRS 7ebPyaPUw4 IBT8MNQVETvt65nK leOHH49ZKh H439MI5YYrxxyIeS kkNyjCty8i NtlwNIc8LeJlOp0l ALFsZ6rsJo PR7EY9T4vlBz4GrH 8pL65K14zv uwN89+44xEeRcXIE Ra5zEftBMj j6Q0LIo7CHmPa13d oJz8AWeVGh pvJXW0/L6GxkJGE4 3t3ZJTYlfw 9DNkj7BI5x9iZGQi +MLVacbqSd zB/MgbZywcZ65RPN jmFTULNMiV soJFUnlYDeGCjyVp BCHDwLaQrd Aq14uyTPWSHURfpM ifqDaG92Xo 0jbNnGqRpafXuHnA B1FjV5Rdar tVTt/TVeE/V6SLDv fX1WLCnFC9 AnbdR6KcEwFOJvVT NhqeX5LkVX Ef6IlxgcJ5VWdkFK q3lgTt/dyS V4QD0ETMsh7olbVY RWHsChFlSW fBlQ/bwuoAtZyhuH 5Xkaya/oAp gN53+J6KQzmCBFiD 37lxFU7gws v7Gr52QtpFAHoyhG sXh5HfqR5M 72YIki72RSDp/xqO 8AoXyFY5yi QEH8a3gKcAR8N+i1 VOKUURAtq0 hRdrU9x9GW25jyde DyjV6ssFsP EYRmrzZWK0Kbt2I2 b5RM0g2Q99 SjyAPyNUA35KiaRV UxktMF8PUa yLPRbiQlMcBFzH6w hZYDfeRoah 3PH3lm9aJFmnSjYh E29e6VSIIC luU6gW+sU6Ljy8XZ lqUoyAoM1t 0Q61rAZegj+6dc9f ch3KIBlY8a jSMK+/ZPjphXWUET LBZ2SutBIh z9utXH5x8E8pry7X Yk/AuRyjw0 29K4/VwofDZUhWhM jEuPL01gDS vNS4pqPAOlyQJO9L tBp+/ikD9A Y1FH9vYRq4Botu3n nh+oD5DM4u cU3i3wCo4zFOuBIF lJDeOwu4AX 6cm1Bc4WD/SZe6Rn 7i+Emmbn0z KoZN5KL7ey1U40QK ON6qyGimgl RdtHv/8vXygPhegW oDM6R/Yf5h vCOquztXJ90OWLnb pfoy/jN1CD q/dn44STx+Ph8PHx cZDFczbIkn SQsfVgxR+Gc87vi+ Q0fAodf6zX PBZ/c65EYzgvkpAc ksododNZ8y ysE9fRTPCGy7A2Bm mnqq2YrB3n +3l3GrRPdi81wH0L zUOyLVeja/ /7C17A4F1Lwl1xws 4H8PlokFja 7xrwgFq5e6c407Bd EVZmU2dZdL 0LFrLuT7on59zaQ/ SxIJ7Vwpy2 mn2Lm2w59hK03fSV oDmd8qku2B hiOhlNJ+ji+uzm9m c5s9o1ZcCc Yixstv3ABf+maDaZ ziZj4++ssB 3Gxux9q+3x/snFM/ IL1+/NY4z6 Nm5cv/1rw7DHFk1O bCECu3HfkU K4Mq6Je7CMDpQQfL hdsEUFCcQ8 aLzu75Y/YdzKWNRe i4C868o9Uq tj8S9eCzvl5/s1NU SjCXhDO8Rn s627BZI/umssYxaU UV529ifxah am4NX4QskqZXM8c8 GgZmh5wzG5 uY04piaHMrXrJbK1 WoxS9M5UpU fWTETRDolsd+vagR F5Ybw2jrbb ZJIm4qySkS1Lii6r HqNv//TJwQ 4f2kPAAlJFRl2zn1 qTzn9Ezi9D w2AWEy0f81sS34I4 1M/tORwVPc DWKqKsk21V8+YvYZ QAfaWBxbcW TNu/JDC3+taCKYJ2 gFqTw9O/9u 2FlfvBN4l5g0NIYp +09ucgSx1S ToA1dT4POY5tt0Sd ZWFtDQplbm NdKdmNPvQ1BJYph4 JqDQogIDw8 PUkaZNUtY5L9zAYg JPBaBR9HZS FuMZ8HRNPzznGtKu AwIFINCiAg KZJuGgRve8DcD8Rz IDIgMCBSDQ rzQLZlU53wOJraIb 94IFswIDAg OoKmQMr2Jl8BUyMw MHVjI50akH VudHMgMjQgMCBSDQ woCMFeR4eh e5DhOOn6MR9UNS1H qsDdm8Xgqj BvV4ocQ3WVTI3KEY LpH3LSQ9Uy R5qtYtVwp3EpS7vb ReLon3YcNp 2POpEkJz1OHlUzOO 8owm7IHnJj MCBvYmoNCiAgPDwv RmlsdGVyIC 8XvIP0SWNiG66aKZ WtONAtO6Sj OIH6GhS+Tx8JKKQa mRFpNT8LMv kYtGwvEmsFMl4bow 9DvYxEFLDr folGSAaMYZYEYlqJ O5OdamwO9g XGY5vJ+t/vqVtXl/ T0FtzIffHk Mh8rdu9813FwCBZw 31FLCYwxsv /YqMKXhJ9UH/+B0m 2Gjmua5xRB adzuLFaTu+FohX7+ du7LwSte+/ Et+rVdPM5/axfr+b z6Pmv2rO1A k8dZ+/ha11vnNukF d3pNq1T1wR PjW9bWL+XNp4FE98 yPCtQ+xYho zTl4kGrBrIYhBQsE cde08n9h/o ESzS1JlC+TY0/iQC GTetJzT5Zs j0LRW9pmeOsBSYjm v9mR47hpn+ M7t889sMcPRHCxfp T3a7KDS1no 6Yux70dhQ2ycpOpJ /DJs+042eE 23YXjwdZoyli1wDT WYPYAnzL55 EsIH4fZyRiQso+Fs pB6tpSLo94 nIy6Hsmu+OxovV/b BuJoQwx+V9 0Qphdxn1mjMTupuD g58YXjWDjA rtCqHYrtG7I5KKoj 0D5b3HvIIn rmCbdA2LAkA+vBuT 89bx6ki7J/ gpiJc2DoeCTp/zvY zzJ//nHcv8 wHTvfJhLc42pQc4D sqL4Zp0C81 Ex2vtIXT+KVxmSWw wbjTe+FiFM S4echctyO9e3mm/u jH0bj+bBZe hCl2LbmX76Uy4Z81 Z7jDhQ71cR mNIkF4MlckO48uR0 AA5Y7aC1sU 0Cy2+c56GnCuzQCQ gbsxvZNcdw 8yYjdypmlK+7AX8n cxafdhw3pk Y34N/opaGzz018Te wIomhyE/TS qLoQYNn1cetfWVM0 CYZoQGGwGK I17iQ5Po0zp3lIvh Dckc2P9Wcv YhD9MUizK38JrvES 5KC2pJm8hK qlHd4MjIagSXOyWy RM7lGQTUeC tWgricnP13hBbsul hBNIJnVrAF nVxQikR8cDZwxvJx 9/TKAvQder 6hfcafDJa0Kd3aBz JFPbj1fwUk Q/u07CghP/Mn5bO0 IlqLi3g+vl ajKKtx+fFn0/GD6N hsvJcBYmDP 8m7aLPelmJOCXEDU JvjI9y81GN XF56IOfyB0s69v/t HUBGw1vJo6 67NwcszxlVA6cZnj 6HM84BPONI +qXIMGN/h9LkGwBa pm1hWMeKLY koPOP9aXEoVyAHkh K0y089sMrf 6zScROyiVfR7SlIx pXp6sOzvHL CkfMgFbPpH4B956b WBK/tNaEdJ b+PzVmfxjTFeLObo Er6Mg357hd d0DZeAg1Hb4RRf9C qjrscLxgnk iU0OAxfUCjXv6L9I s8Kj9BjWw0 EbW/ZweGa54PFB3C 67MBnrO4bb jcDkhKmKLAXtTWde Ejr9y3CkFK IOkMEkCJFvKyYxY0 kAgoij4S7n cvhj9KD9Ma5O06Qz x0zcHoIOTq bgGwPkUFJsMpSccD dRlLS2fGUJ EonG08iVZHZmFeVM h0yW7KBbiT KxqaM1TYch2ajErU HOPbpBCt2e VkXLcLLlWaF2P+fl GFDKmOwq2l O2RXB7wxwOQ4lYeH h2TfcTdQjI RPfRfgfR+asBLUhe YAnPocyxaw hWinQC5DSd7/EUcM H/q+E5kAEb QBdYV+ZOgQxzxXoh dMnHEA3Avr zKORMJVZuojlH5FK huTUDkZd4g zZCUWNEUeuJAOh8f aWaj5bSeNd Erl4TqZR94mp7EVJ XNDtW4AO4t +jWM+qhzeJzPLWdh 7kOMlLUDlb tsJKWdjx042QGBRY sCBCfFZvrM vxA4zGqI0/HsIKo4 YQpykjxGCB kUNfoMVH2zcFfej7 oStWMzynmN BafyAB6PMnWBW9vW wkDeL/cpca wGPAVzbtcwitpSLm nqMum0DARb phR6pwT/r2TGjd2F vjqw8C4aqg zwXIl2fTEXTlqYSh GoHJpIFFJQ R2ryDvM5BwWgUW9J EBZCtFAyFg MQlAPEW3BnU+4Kw6 GiotC6ELGd gNrdnV1uSwkBNBKS ILWJiQKqYY nVF/A+0D9kg+iLkq lUYklOkqSl 0KnMkUHutUNUWEeX BWdIxuM3hs jrr5dbgOrEzWBeul KTZ5HVPnAv hjodH/Ebn7VuCbSm pPz7HTXEQg UKtpNKaIVNwqwIbj ppHx1PVlFL TWIZ4A52eFXoiKVc JMVMUrQSZT XzTBrh2n7UHpIhrb EcpU1QW5xe dCJHkXGYkY970bxB zFV4FMbXnt RXtZCqsBBao8Z4J3 Kw09wZWRox 2snA4D7v4ogBTIjT B7lAAyH1uQ 9IUouADKotXfZPVp ShQZhm9kjB 5atZfq3yPzw8bW7q 93XId1Ovav XydZ8gc10Ns2uLEu rESLo8C6K8 p2OgrdHCqtOFCQIc NBJztR0BY6 e6uXGSR1izuqWsc4 eOgFI5RpUA Qxe7xYOTbDVoH3aW zEqIixiSoT UvUTl3GsHKtupZdp NXm2YAn05o Nn3DaZDAcqiPTM3s eJXb309Ih7 Ca32LKnaGs8fvhOJ iyL+4eWk2/ AJFaoEpciQy2TIoZ z5ZmCsn+gB amHyUAosRGlii0WG CTunRQUDjB UtizoKaOgAxXlbQA 3ORxqpQtaQ +lCd9cKASGHQgf3f lGzYEv6AD7 gajSLZymTToDIlib FDlgKjSU/7 bDATo+0GBAt2kVje fSwhbWvVib LOeEYF+8+4NSMNbY yKS6JISZCl IJTkKjzzgcgvrzxx X5ODXVjSi9 iYTIsJu+HT6vn+vH SXHlkJcQVT RNVc5I3LbeTcGXwM Z3uJBhTmm/ 0uAeS06R2jcxJXuY XNYRMBy4S3 IxrRgqxfHkpaSQ9/ G3HNovYqgf iBT1XESFI3GbdHvC D5sbPyayWS giwY3VejJeAv32NB BEvSWUGHLs +zp3gYe+DgidHawQ ieh1WLtMGQ Mq0vLjGI8LeGRKNK RnpbqpEJV0 kbcYuCSMsvUL2tB1 4yLEt+xYTG lDupxMvyLMHcZ2Uw oYFZhyw3Z4 dKWOdAQtQjKzCZiG 89oGDYlwUz puGF6j2eWUlXGWH7 aZPY+62ftg h/3Ck6B4f3E9PoUW CVf9fCwlda +shqjIuSHGTRdP1W HmvEwNrGzE PD7XMLCAHJmp/Rh1 tfMmvCzRrV d7E8xcgrKb3m3zbl oPVFfHMR8B shLtC3OL5vme7ucs CoUJpdLRFV T0MnMDtBWUBa9S3l B53+zZX+ANANYA c1W3j7NvnaHxsHvx gFvUeam3Be XZsdgoqOtHyUPzDf k9ZTUWCczT WX8JP3TPq1YW6bAV LCEaRM+B7D JorFYlVOLUlTzRdG F3iQSfU8RS KsvW2IeQtrKsJ9vw phGMSkevsT /9Emp/BIoVMyPSpQ FId/bHoSId uTPmBHf+6dociCIM CWLMLZkV4F 9rE5Eg741jx2vR9V Jm1Ws+tb8v DWeXqigNfc2n3Om0 pr7Q7ip2/X 30vnXSqp+/iD+PP/ 3siCphc9nT 3df4sEO59WNzNuI/ DpIc0J1g1f 4K9cV4/rhYoe/DJY UAK7scIyhP 6OD9ToMg2Al5cNFw uWfj2/qlzX Nwehr5Wz4/dC5Qv3 t12S/qQxBe zSDbh0ld4xwFjWcC o/MPqHvRPS 24w4mba/3u9fk1+p VBSuaKm9/q 8c2hTY6soBiR2767 XwE1l4vsqe iP/5iSe82jE/sGdo WDfwObS9+n n/WOUIe+ww9zagda QXwu4VpIKt 8Vv/KidDXZVq9gCr uWwqiWbmIb UxdLw1KR4xq0VnIg IDYYm3UB5F 4o1pDC9HvBrofp33 AiZ5Iaqlbs ya4qFXws2IL53419 Vq8s+ADakO SHQxA59n3Ezw0lru vMLPUiZhDT OY62iyVpt1RR9jTY Gwut75qQbI UZPJRvtDfHL+PgpU n/hOHHyrof s+H/AVtweDcNCmVu UOM3bbWotB 3AQT5oe2PtGHcnKj TcCJ2eiv6K SNV9AW1PXNAnBP4W oMBiC0JoC7 UNCiAgICAvUGFyZW 50IDMgMCBS AMukAYUzE5Vbl623 cmNlcyAyID VfEz0BZKMxEO5OPZ RpYUJveCBb WCUeGANwPyB6ZAWr DQogICAgL0 EcsaQqhqIsAJT8SX BcAs3OUNXe NK0Zav16tKQ5NRPz UyAvVHJhbn GyHEPvvnQ4QQ5EWf CnJJA9lTId JzfIWK8YJNKcsADi GN4TNHJqfN NlID4+DQogID4+DQ plbmRvYmoN GrS2AVCxn8OfLKwb ETj6K6VhwF RlciAvRmxhdGVEZW PdZYEnM2vt uzx1mRLrSpc3We0W RxLbo3CrDD AzBPeXszAqK3JrLQ Z+36r9D/2y tUmVsdWSWhdXdraA XVSGP4MeLH XkwcbCeMaWGFkOw7 /d1z94KaMN xgAiyrxV0h6+92u3 KWYaoe8P77 WGYYj03+QZ2arC5W z8/W/iaZll Pi57+eiRWE0wwvvK 0WH7pRsQN9 tjCOS7kz2W0warIV 061q7q4hGt 8ANmONvLQWx9K9jS zj28ROfSSy lKC2Zc9t4Yfgmy6x vO2UzLGft+ CkC2N1gCxmBIS2hc IjzHFlueb4 nB+K2yqGh3DnQTm+ nhLR0G+Jhonny xzNogmQ9NCSa9tgu J2Ic7QIaQq oN74OJKp9Y9LpSiS UYQ2pPz3Wf B3x8HKAY85P70FPh wseUjqmK9V XDG0DawxWJiGUjAl 5CrKt7INTB 3wHIA2Pd2rLpjbPf cM/iYBIOw+ uH7uX0isA+djy8ns 57BgzGz2um 84grnWKwz7Q28GmE 5/nQtvPhCR 33hpS5TX/FSBZGIf OhTYcmHTp0 WIsAP3KYf8Zl13aH mo9YJfW8sX 4QxwOKs9jEvCfiW5 KBZH8muUW3 55+5Y/kvM/qpccOy nMywrqaLaS LXanGpK4mf33qOIF dM4XkUf4lx rob3Gr1NuR46MHz+ ccIkMMxz6G NlvZIKL3W7+/qOwK GxmIJhOFh8 pIZZDlQIUyTi7LJs a69ycVdgJV lQYHTpHZImywAsYb LPaa1oPO/f ezNEcHVBp9yHvCgl X4qF5iybl+ lsQfDbvXSlmFHSNZ /cRLwVcNe3 XFOx/h8i6OGsNxp5 Jzl3JipWq5 bg+wj1QDjTzj4oFX eAztf3YPLV hZykoVJMnqeyTLIj joajRdPSsh epqosUka37QboxIp UGHho0kY4z ET2k4iqgUEiUxjrj SQkfdTJpWg Ff5YXuJzkIlEk/RP 4AXD8c6i1X XRTVTTibY2hTa/m0 KQ0/q5z3jk /3l638Rm/ERf/NDl 8a6Lnidmh3 PvgWSwVngT6dRg1X RgZyl9B62F 5NE9B5Q+TBdjPoB/ c3YZQ2ZPh5 m1YS90BxdJP8h4xY vvdS25MC3H LA2RfI3m1aZSuY7Z 5xsk1TrbgE bnk3jDZX6+FMHATz aDKLRtNQnA 3OZLjO6yzVK2ehdR vr1I80mVbH 6UUQHOpG8Q95Sms0 VqEyvjWHM4 0qIU1Z2dOh65yayi ZoSgTnwfdp cB+NG2amvgmR1c3b 8vUqe52GTk t565h1kq/1l2XQg3 35UYNmnmOy DGURM2+yNK4V8gPB FdoGF32JgR WOyDbVRuXcWsBOnl TB188kptI8 uQrumB2cZXQjj/z7 71S7KsBAw/ TLP785AUwSWkUkNL XMxJI7Gs+/ Dm1pu3Xvb5Eh/DzW xqeXiu1S52 KuBp87NjqZXWX1gC SmRvEvTOl2 bE29f1kFLtcgmIZi abcEYxq9eo aTtO6CCxTQIMaCkT 3Gf6bS6UFD ScfqKMdqgSJXvmDN XtHO7PgBRo my/L1WUs33ZF7/gk g6IJPo1umL ScIVBZr9FWcI4QMJ 4u240p06Ln fkC4e8y3GbzAWXKJ qauzNY7HG8 cqHmpzYT5vBq9XXU if3aJ6QWCQ 8Ff4vmXinkPLmByA hGMtlGA8UA sl7jIzOYrtDL1Gj8 Byl9VKMA6h f8EpGbxBfIDaTZIj vk7stTpA5h nx2tBOqzLtwDreNm sGoaizRBhp +dGQMWLS0BZOhocX edPgeUH6uF EKdBLlsp5Acef9Ep Q87h9UMQGL F1X7fclSZM/jVOgW hKXyke6RXB c4fYpqQVegcxif6H Tgd7/bxCXI hhHIgkEqNALBfBWA wXYrKcjoPZ LMGZMYp21QelVX9J s+hexMFiOU dYUu7sKQtI5/SZ3o leYHXypp4Q QZJSNYvCibifJrci Aj4MWWce+q tCOp9R6FZcRsMPK6 M+Ykf17yHH 43z0pkmwn0Y51jdi k72mVbF4K6 C4B4C3hkb2vyy6CQ TrJVpBX9/t 2Y0B4Fo8+e0OMMyl /Wl/uy+ce7 zJ9nWERy6LRR7xls P01p6p7IdM /vC6YwxAPe+VqGml IZ6FmLYFFB 8znT1w5eIICuCcsg F1Iki64a9f bA4oZqgaM6xKx7d9 5jTQsz8aNb 308YjHW/OgKB5168 zdRmEgTpbz EPT2cOJ8encY9c8g nKZx+8Vd9i 69/I6HM2XVGql2sF 3JXztS0wRk XS5nl06b5t74Owsb 6YZsnRKSxn RpAAElABBjhjJOiS 1rCb6BoNhU ll7Nrstt/99IhL/m u5bqmmk1SU 6lYPuYrWcrdJ0i2w Ed/pZLUVWS yGwAKQebFrrHPwRz txTMBubckk 6bh8sTb2k8PEHKpU JzpXDuoMAQ V6CbuNlHGJkzHWe1 xd4zkspbY+ cak4SiEFLGaHhLuk U7mTtQ+dFw hB6A+Z9/QueeZiMm LyegJ5XhXR rlFJP5uSe5OPCRHW LJGpmJLoVG XkdejDyItEauZFY9 vUGEb1XNym kfxuw888bYBPDXhO TjVV10sV5G 0UKamnlZcCJxK6j4 /TiqNDo83h bPEx6LplLNWWKNsD hznSwEsmdC Se8tE3sruauCJvUP h6GMOdNDdP IgvUaUJhxwX9mUQq vaByJO2n1F tUyJlY+bVyNlTwjj iYbcYu2FMn KR+tFAt9CVLb9toX 27/BqhSs7s UCr8J8q5fNZckA3C UDt4S4DNsm pRH8AAQgWeFoxMhT wCYBxnOocJ KGGCbAgfvld17Fwp YnHljw74/e 7opswhFknL3xTUm4 JBpVAnV8bd vqrqvXJdw0C6EeGJ liRMr7dQgQ aEt1Bq0LLgd5Ithc YAtzJemGJY ESC8AykIhMXH6CkI HqIQYH25XT dE2Cp/pxzAlonZIX KnZa9EA8PX TRl3b6Q96pVEwPAp DldLvnVOjW DkbktofxVztApgO1 iLeAElVb4m GWcy8c6Ac3Dwvn72 qZYOLQ8pNW GzM/RxmNFgmUejHT pIhXzRjfio t7B0YlWjcyiSTAWo L5nEzURlNT nQHj3Lp0TjB/1KXL 6X4WI/Zix8 xHNwnIxgs5FcNyou zRyUrww7Pf M0ertOOHUJEGIKyu PvHpCmt6Ap UtwbPjJsWq6fEtsN 15zdlWur+1 RqwtUhyUJYCvteIz 8o+FxirJ7d o5+gorPaBw6y26xd FMcHv3ldZD f/rHKSV6axcGnPsN tDUUwXmFoI lzoFs/TK+dLmR9hC VubBEgsVNT RgLkLSOzek6qAGyV rFLxATxR37 Rb781Ljrjki2/Nlk 9UkvEzAbwt f7I2KKjw4MMorB4a yjoGgYtl5B /IJo7ECxFfYh6M+x Pj+66NcF1A qhde6Or9jzOLt7YO UEXt6coVND +48CO3SBGM2RLNnU SiQ9Pf8/pI +AKcUc9Qx2yQHoT4 GRMpX/WPla +aHrVfYimJkYTxfX c6L7LnMBQh YqNYGoGFyK0ZCi2G HyN5rxusx5 aj8BvMmYGYiPz8xJ tqSGJ+OHJC GML3yyojJnD6iJ4H XMd2sVd/ZV yrKADw35P0Ja44LC hDkjrpkqzy zWlEXfUXplcCcIDd wJMzFN/yyl X4VJRwDEIuJtAllX c6BYz3EtKM 8tJLf5IKzYMauW6Z 9HZTcEDkNJ tsEWh8GQMEs1bojM kNwuMf8ZgS A2zJGJsw0DE71iWY +kgNlxMpQF 5g5ju5034fRqTvB+ HtGJ9g3bN1 GkeWvAjYRV2zBvZv kessm7DVzG pawoEYGyp8CZewVa 2jsYDRQsex iEWekAqZVRxMxym0 JiRLDbSpi7 OU9NX2BqE5O+CeSV QvqEJvHDIe gqjkkfmwcjcLsG+d j7VIOhBWMZ H7uUskmv3n/ySc+v ijAQx4MNOc CbrZOni4pUldc6jZ BLqEiKldkh OidpKIE0uZNPrc5J yt6FoP5FHl hXtva8EHWiFktYBX gY3in1SMWQ 9AJm3s25Y1CTfGWE y7uG8B8tNc hjGIZSWBqMQGN0Nk g9FP1MUP2V EELfFmiWZYWXP3Dz YgKGhofXwq 8Z9c18bIrEnXeVEX DH0hEgW4RY VHeGWN+BesXhtPn4 aZtGVavAHI P4B7tUaBAwMQSIHm CVApn1JKdT vnQGScROC+2Acce2 MqKwI+L8XU aWRdMGu20sJsjNVG 9+/IEC+ghZ kQHgAeLIHqM7XNKs TMQs4nA0ga BgtFhTryknGvV+x9 a6gU4puzD+ Ry9Vtpcnvj9sKOCr uQZ8/c+OMt nlJH8tq4bqRn5bq9 Qp8en39xse GNm/831ta+Flavio/pP 8VZVnWbEvH rMwQbWzYvHpY2NfK cvcW4O+grA rKouIx7ZcTn+rv65 yLhrJCl2ca My1/Z1Xqf/rSLL3k VrKuloZPlb XJOKL5lG7T/Ll5a2 a98FFQ3Jxu H2V2soe0DEg/52Is WmPLsYtYOt oRuQH0YEX/qajRi2 wuzDV3YW/w XgBheMDQplbmRzdH HbAX7TCpCi DK6aoo7PDbipDLQt YmoNCiAgPD wNCiAgICAvVHlwZS 9QYWdlDQog KNUkB6QazaEaqLFa QJUbGm8COG HvBM9UFWTieRErEC MgMiAwIFIN CiAgICAvTWVkaWFC q7nqLcNrFI Y8TRLrFmjrQO3UEK HiIT5Xy001 GY43vbXwTKUiDDHE CiAgICAvR3 ZmcFIvFHngQ5HiJ8 KrDL5zqOXz XX7zmEZiJ8VzX8Bh dmljZVJHQi AvSSBmYWxzZSAvSy BmYWxzZSA+ Of1UCQF+Hb3YYU3s i5XdXDklOX SkGK6ckq7PDME5UL 6CoIf4XWJd N8BgTEXbMXTra7Zq HX2FFL8kwC mjUkZ0YI6+DQogIH S5qsFhpO1M XNUfCOrd45wGgx3d /0M/arFJxE n3dFGBc93UQefjVc uDYDAPNNWW pNGCIEyE6rWjg7ME iqvCfHZLTS dQbCBWh+lj9ic7yd qQEOrnd/Ek mFiWJTa/376Q2Ivr Kf7+N/H5Nd zLeva9T1ob7+fxcV WbB5FEsufT z4iEOQfSbtL+HU/z 1W/d4q3Krh /V5uWTcdJTflzqj7 hvR81sFQPI s2fi+iwEUf6YyXRo 5PVH1/4S+f MvLR4Pty3tPs9nT6 6D3SkfnPr9 ZjlxZl8stw7Vcn6k VjevaVOqpt Q8HtDivU4sYSidZM drs1mhuebX DAVID/0rO2v7IdUbyca mu4mRR1p7W 14Rl+NKZKlavbTvi Huh2YQvU3Y Iwtivf3FWI0TBJDJ 0YupeLeLIt iiVtFOETzPCcXjyP Y1jB9Kcy8B DQOoVs1e77Z/XMRJ ungknsuiuo 6HA6Xrg3Gk8ofkGP s1a9ddx7rv uwUNmtzb8ycziwvJ hjv2lEbJjj +nmy1tBXUfyQO5Mk T6m33hzENk Xg3WgZ1RYQ1Xkaym EHIJjfSCjk ZXiq5MlrBjKoXh60 rl+o1i/Tct 43sC9vttUU/sjR3L sXpwvTjfzU ETzLYziWrM/sS/5Z 4chzo2+7Zj 6/SdMuOEqg/r2Tm2 tuuKPlUuqO iM1GKOIIwtahGyTF xM3+2dJvol hkivFV3NXljcS9lg yc6Dg5DMqm QrRDg5UvHLEDUwIu OhROlQTNH+ mhL8OfWbWJOpw6QD NRw6AFyGbJ FvjArcdF2gVVmNHz nE1qaqbALE zEW4TBZCB8zZPCIZ PIKF1npPHk jFks8BOy2mAADFU4 8yGiDPKHuf mTeTfEu0cKr/2ydS VsPHX0QV6j ytNbGnuE4If9coKt RMNygTsGpA 1g1TnY1D7ZfFhPJU UsWImxQsdn NoNo+tJQqRTB60AH KSGkOjgKBT unNmU9V6sMDldd1J mCULlwYyET nkcsCnu91mP8Y19e rsRVq/htJH ruk+QuvvqTMZaRDE vy0yJ1OcOA VzeH9l0x7huZdAGI h7xNVdRLce hijKZN3f5GS9FUct UzKMxxkfdM JfFsuxrncnnEPHiH a1ywiaEkMW sZTGVSm0+top800F eC8aTDww6s +pUOr8iGmJtsemDx rQ+y+kAR8o b9zrZBPizI88caHq vxTOTWT4gv HHFZAjnEFxhollgx cYE1aGDE+B tfh4RVs5y2d7t2Ps 7sVsnTTLJU vgEHMbpeTeRRS2bq aVLMWpnBdS yenxQ6mf/3hO15X8 W+BHH6iof2 Qu0FdtsFkqIKCUdH bd0npC5qiQ 9mXGmBFrWtZh1heX 5UaqzsuKeT Gl5F7xbCgOnKcJqL HoXL+LSRJ5 wcFexEQV2yuOxYH3 dthX+YdTpi n0EjCYK5qPNa2jue iKmhSkgLZg BObYySCWp1A1oOxz MiJiN/Ttzy AjQ7LpPK0kYakQji BYT2qsMMcJ X8k21JfF8XJPAYQZ BS4nNee8GF nzxMOkoBWRwmkTLo FQGmANCrpx rZmFvYzEtMcEoOFZ sAOFgDTKyD DXUm87uIheim4ltb LUQgYmUWc5 FswmKe7Hc8MwRJRH Oza0Oib7yg N3ssyPh1jlLPqijD ezeC8ud2vg hOWgMbtP5lPAY/lZ QX1rzJBZ+5 8as4FTNBEW7a3qFx Xsi4PUA848 bXL70VpRGsDI5zn1 A+12Ziep8L CE7ieinM+K+Wak9e ivdp19k25H GRbiVVpWebFzfeNJ 5NY/7M9nXG 5obVhouZuFqpoIKa 48IJKnr3s7 +7t0l2yKEN1OShsw QhPKOJza8s tqOcSyPN+h2L07qg Pkh4vLNTs7 TUx/NmS3/mSyhT46 f5i2nhY3jX EhRS8Hko+se8ZAOk 4TdyTnMPj0 kcbQqAYpDfrBKKjT GE2B5jvLMv 9kvmkgbGRXcG9KDN GzR/V9ZzKg 6rfQORtZQMgcDIse SoczFsll05 wjOXh2Yicqk4cQ44 7+HqCaeuGQ wgpbsn1AoUfHilBr dnnDuMRaVI koskSiIsEXSl1eVU sZxwqkk2Xb Ycxim37hscmxKwpX dbhH3Zmr8Z dTYVeR95DRL/yHTR 06ZJ6hw2Co 61Xjs/sMxs4b81Lq DGjTLfQfRV BBs9xNPPv6ozamcr GbZevbp87+ D2B3c4zRChZVI+nm 3PdmTOGk17 WRyDqpKuLU/HTdYT eFuwsu1XI/ DHUy7HCtUM+JNCtl uy0fJDX9J2 wXJUSAAjjLOcE5it Zwo10XnbHZ Qqoki4ZGWw68W5aQ 6ZsHap1Q8F 0X8ygeYpDf47LdVE g3A3w5TTPI j9j8ziV4vVCQXhU9 nKVJvDCvEs EcWiB2aYleLpDBb5 cEeYn3yFZy jMZdUZA7dQFhJGww n+vAuYFg4e +gnk6YrWAH+S300c Uy/1vi14XG 4B2sm5gSbaFqhZzJ dFZKMhQc5U YetXVo2PfrGI2kEu 24jjCB8bJA aMpGwWL7XPrwKCLI BsWubdZ6ee /Uim7JFvsnM1bh0f AjWFlymk3y J3wKAIEPI88e35Or xUCbQfFaJ6 9rgrV0sMFSIBQ0tb 3ld/oqg4vC YwqHXfVhIRHvceB0 Z7+D999phq gLfEtid00kxGZji2 hCpXPaTOce E9kDATr/KgCNW18c nKnty/+Mem 7fGdRzK/Xs21KAB+ bOgS4LJ1Qc qfrTM4HwHgtZITt4 OOV+Gc3YVq qJyiU5xoobPSn2Zy QAZZP0A+3G TBZjBTP9SdyHmuDy DyOXDkMTeJ hnjzvkCloH/oG8h8 1W1q40w0YD gy4SFai93qgEw27q 2X1wHEOZON hsEOvJL5PNH+QjcV 7/k84Jpsc9 9SSyWRcqz3m3EzVO bHQmmMa8xV FBzEJTfXFiQG2ayf MbQDVaqeFz 4DgowWmDxvECBkhj TP7cY4HR5J 7Ri8abMunuGxye5B RfSfo5L+rw bXoly+vmT0cVH606 kiTXhM95J1 PLBI+mq6k3PvBpTz csmL2Kh0fS p/FNKVayEJ+k/Gje Z0IfXiuL/H WG+i7D6FJyci1Lp4 hayrIcYuPZ PelzkiLMy2TKthla +NFFVdSyGk VJ5IAfSx2mvDwZ1M CTmWurTPe9 XDQLl+H3kaWbMz8p OKwyjqM54D zRhwFtuSAv1M+5vk k8crVxYvhu HTpk05zLhFuJomCs /3WOhioVey mrzbrIXDaXqJhnaI ro9WopHMjG TDMWVbNSjw2j2p5m rtVEm1/gNb h26fF5gsLc5ASVAg lsxVbyE3Df HEHco63wu09VEC8H F+2+gwM4lN 02IVbp1XCLoCfgBz /Au0nhcS6Y r4qncq5/gB0E/cici 2Obp9SIuWo iBTdqobyT3RUsreU LoCxMaII/q NOtgbMhqft+/rMcq PtWfflbfKm G6pNnx4JeSCQ7ErK AA/BbAZffF MOkq8vK6uGvtn4bK wL+7BeUd+f gXpBr/BA5SMB4xh9 RyZWFtDQpl bmRvYmoNCjMxIDAg f9CmJLxdNE d8WKvmNHBeI9N2fC KzHPXpUF2Q DWPpYD0SIYJwnyMm MyAwIFINCi ZfNQSoUjEym7ObF2 VzIDIgMCBS OGezRDFfN74cGZfd Ks82WNzgGN QiDmLkNNd2Jz8SOy QbQQOsZ91g dGVudHMgMzAgMCBS DQogICAgL0 ssa1LiCDa6BP0XMM 0HoxKil2Hv nnCtT9ulJ4NPUX4K YHLeZ0VWB8 JyN5fwZmMvr6OtM8 csYjNzv8Ce Ld9YFsNwMu0MTvSc VR2sng6UPm IgMCBvYmoNCiAgPD wvRmlsdGVy UI7WfPV1MAFyU60l ZSAvTGVuZ3 RoIDMwNjU+Pg0KIC QoiSLpAK0A SzdZ6F4lewbBUP7V Xs5uTa9PCW g3bnpJZLAf7CbjDn Qcp2w/LIEl cC0RoCQPVhweCkbY 1WCrPn7XQm OCRjjxaBfpeTK8mj a5ovcAzU3/ iF20aZgC9m7NG+PU F7ZY9pt/qe nxhuhM2lqazSi+PN hflsVZNirV 8+eD/lHSFwB4uQ9R AKvK0byAo7 U+JR6Wx7tUHnIF1I R9Wtb/ep1n 62e57cJ2dZoqhCmU 0hBq5Dyn70 4K/GCoBkeOchNHDc +qh+cqiQL1 WXg3IQm/EepqAM9K sgdEx5hM8k xgzpK0BzBUs3b0ks BQG4lsKWy0 y27YoIZy5ZrMDr4Q yN3B63ynM8 k0Y+8GY2y2d1Jv3a Ol96xyCOen ZYXLns5J4+spAZhT wqBWRK+G6t 0sqcKtYrN4BVsFF6 JAIrsa4w4f 5uekaHn2sEh/7N6Y f3+ZjYrpE3 GJX2sCUzmN7/oNlD edtOKWWe/b GcE9qglc+axlcyTk 1bXcTincth aReoeqlDv9Lm5zUS wLWb1o22k/ 2BLVAq1redSOa2EW 1W03vuaN7N Tu4UUCncrS/2oXVn l0fRhTAchN BmW4vXuBhGhcYz6S YDQj4Nkxe9 D48w9IGxe6kol4tM bR1lJSZn6M 29N8fEAe8iH4qwAk IthXTmZ6rx SkxccdivDfal03ez 7/dO4h0ND3 vb4sS7UMDtxW2EUb nlWmbP+NHa qyKgV3SzEK9hOmah YrxhGhHk2u 8ueFLEtkJXfi206l IMW5DtB9n5 5y4yA0YaFB9VgCZr NOXBJHGltz LJvUdELTYeYFDGks m4os/H+3LW 7Bg7rVIXqOkEM9mv rv0RuR3npq +jcBsAaDmEX4mEp/ msuGOb1hxp QZh2myB+Be4KEa7V G94FtExF62 POBLYCh/Spm/L6lZ yKHQXIqhc/ vTnqf4nD2lFeM4Be pkvhOZwgoG jC8FUsDmQDdB+vGY ILgqS/ED// 8cKBaAu5gKvc09la rWfUXodsF2 VszUyWi+rKIJ5+nb +Hl8PyvA61 M4dpqIz6r8UjeiLt hE98o3oPNe PzRSpEShHs8g7mgQ Jef10oLjAR /KIwIXO8ghTDLEfJ qwlrptYKJD 1Jv1lfwP1bEPnPVl LWSTIvRBPi zTCQwwRcuzMI0TZ+ 0qeTsxoExO C+hRXncrv2+C5ZwS HVuwaQHbc8 o/ZUi92vQep1zSl5 LxgemjHChp Th0sxGSwCrkERSL4 I17PmHlReY uvreLCtPffm7y3J+ +Q0ehTcYAz fES7QWsnPvyMzK72 z3qMfz48T/ z6yi3M9vPKHiHnm3 38/UcjfxNT iI1kXJ1eTU/EaEyN ilH1ulsxqT qz4Q9EnYJDQBqHdm gkdpMm9p07 MYM8XDcE7woJvtQU A/lHs2nNYk X4umT0SARu7TjQWZ rVW4i2MLwa X5ONBaa4HhDbBKwz JWu1kudxbZ yxp5E2plhBgKBcAB SFkiVWu1qH sK4XjGdX5vIbRRhV PuyboewLW3 hw5xWyY5qMmumL2P tHacFhgVNa ZdxLTDSTnipU6Zj0 gU8Qjj5T8f Tg1KIqkrQGCeZVoy 8CIWrP+vRA VayZgb4vlOgzlzCY kC1/0HRqya TiwNrbNkH/qa0N2l tPDTg4wAz/ n7oS1lctkk6h2sa7 P2KNAjD9Aa KLd8EwC5JgD+jOhF PI2oWTSbV+ ZpSy/y/dRJ02/UP2 eNH2p2IXXe nIghbOTVuoJi4B15 TnB5mUCWdJ ocarORNw2kLv4AiE oKAQvkwowm NfG8kXtluMLsYeEX +fB4zgHoFP o0tQAh2J0NS5P9V0 3yuc45fnw8 1/ELUlDnACqN+vyC xhTyrwyGDZ imyqEMw9jk5hWmY5 Xd5NgXOI3l nTW8MZK7/ZSS1nVg 4G8ajGGLDb lHps8GDBfrrp7F9J OEUm5saebm hfnwqOQrrnUDbBaV KU1dFU8FI7 IC4zuARZrCWoNGqU lQkP+SE+ky ai8AXWWSCCxVsEqw yMZSxyjZ1Y l72ettfLuZ2mOTZ5 iVQGbXj5qt QcaAXP4O47mWf2pl j2Fdvb0Qu2 f7XuFGgeFVlQr5hy 7LmcJFTKQd kVcJBdubvku0+muy UErj4YH/MC JjL6QBwHM1NGoPds wuB5iPtDs3 hwCwdpyRstswEDxP m6nD3cpCvf ax8c4VTnDmKwuQmr 9IQbgLjY3X 1IPFEXYpdCgERCW1 ExZHUWDXYM FP4NnHf2FL0G9WZo m7VaNTYckq dfOPPWrOQMyU8aiK M4jXtrIfEA GHx4U6qkUcARG3Y2 NCrhoRAzLS fXfRSfLP9m22wfsh T6m62hwiEK gK5z2mvv9n7b7XOj 3aPWCrjcm7 W+qt/vLatXMvv0Ug LZL5x1F9Qf z5TkhpWZa+OZegkE rMWCIfQlpl 9pfGfgsPhmBJpQhL fncXal53RV /o56EzA/zP/yAy5W n21y+AXMD1 lfOPCkmSeIimgMd/ 1L0OHT6b7H Q7WHggmALXDqdsgt AryxByfwD0 G3xGaJDDst5gS3Mf fBVpFY4CxH HpREaHtIuIP5HJpd drg9UoXpPw hUYs+mhyS0u08Qtp jYVvLBpGaJ 8pTPyYhbI5jlcXBt 6SSRb715zA SNDy6dv2XmvnS8Lb Eo4CzPGdb3 peaAbV3fkhaQntPl 7EtNun/uhD GB45hqqsghZZsOSV fSgQLVUAgJ QKN3T8RiDgbqm4SO 2XkrJKYhfQ V8FhYJlG5mISUWQm IDqLeAIAQy x3FKqpYWnSCnK8Sg GLpuAW1S+E 89IP1EnMJRGYo7pD vzgrD3U7OU 0Bdn1wi7jJbyyT2R rnEGA9IhIA DXh8KXgczTQscVZR nfveDJT73m V0qmtC0iLyKlpdu5 z4idHCQYXA WHjIlHbOQBlQaoE6 ZeC9V3Z9sd FSgPJlPdN7Fev0fv aZ7BmkMUlu Sx57rPGW5BJYRF3Z Rwv0AHF78f S9lkS52fRhnoAhXE SfMiCBZQvK O+LXmmPikHpAl5iQ 7YKSj7nFjS kuskYZcePs+n6oc8 p9LioEPGCX DdBB7tfxzp+02I5f lGlqUt+baQ StlLrXckj5BDoSzN m1FQBEUDr2 YBPmlsmQ4WitL17n /x0H3z80UZ jzMhhXI9Rx9VNVnu XF+uFLXW53 0+ao9DMF7OmEfLJz ltGgq8ZIow /uuGFG4bbma2PDJ+ eYDtLtrwpL WNvIrQpDnR+OW54y Txi9/U8DtL KvaP2Is4SrsXqT2X F8+T1T3vKW hacePDbpNXRwAFMD c1Q51hVcsl jqpQgQipxxybk2Zv b/FqbFbxtr nbEck1mDa75rq7qh Ka00FvPphL r5bj2ii5rh1lTv7J lZCUHk57tB vwL5lGC4B2vb2fD/ t32JC5dx8v 0CMRj7hKHmrjUouB f34jdtQbOR +1G3yuoU+3FV69zi Jg24hUkanb cFmkQZGXdRXsJfNo YHWh5utt+F SuoMw3wE7c7vjti0 /k1kqCVSN6 ezZo2iTnmkub/rmG 57Wpmx/LSb 5Uw/uiNT0hpXLqQp 5wG6vhhLx4 E4l5eJ7lh/PZKF9u d3hCBdw9u0 SH4Xs3+/+O9zxAI4 nDikx4vXyT vacyEQvXiAV0FSUK hVmF6ZW1vu etyxgC3TnXG2jSAt TadJ/NRZaG s3us3NVFXviKfXay d12/vfjsaF 8lk8N1x3kMo5kHA+ 23RFacx2/V 5mmud7gTa3o2IQpj AH2/siTXAI xVyO0Wmg0r/XgP8H g5/5ZWh9zM M62JCGFG1zIn10pz Umpgt2TCI/ ZftU8aCN8SAouZPX W3wqr7GN/g gaC4eEXN4U6G40Ty PhRdPcCOLp U+f4a9km78pv7KmR PL4VDb4NxL q0cfhD8ZhF1g5uos IHQ6KnUAxa Wf29kUHXs0fehk7W GaiXScP4qf 0rENyktkhBGLq71x HU6K/Ewdzi 2S32jQ3UmowfJ0kH kjWLKeZ1YW o0ogAEeS+qbuxTJf 8T3znWwY8f 7vRwZjkVfrZBDW/9 uIQWs63sB3 n+FqAqi8+YtZY8NI Bv0l4WlccB Ew5mo7J5Ui8Yht08 quB3hKAjEi i+98fkzGZD2YsUbK hBf9d+TYm/ 0VrVzWl0ZcTauNZx jsVckd4s49 OkbfRS2jSf4vQvJ5 d2Pad+Ljfw HlYAL+DQplbmRzdH VuAN5VKuFw VJ3kev4BJrWmUAXl YmoNCiAgPD wNCiAgICAvVHlwZS 9QYWdlDQog RWBxJ6SgboEptQGr IYGpKc2OLK ZiRC4OZKXdiOCxNV MgMiAwIFIN CiAgICAvTWVkaWFC j8saYfXdMA R7VLPiLyicFP0JSX NwJH3Bk617 US17oyAuImCpXUUI CiAgICAvR3 OvwAEgKGhnR3SpS2 JvLB7uhTOt JF9qrCSnR8OoU5Uj dmljZVJHQi AvSSBmYWxzZSAvSy BmYWxzZSA+ Al4RTSD+Yb4TIT4r l4UoLSqrXI FpAK9iqt2PVXC0BJ 4UuWu9SBIu F6DyLXDoPBEng5Nx JU0SEQ0vyY ggMjYyMD4+DQogIH I5yyQpgE9A ICMcNV4V38zX/n5V 9x/dL0GQtj ltWzmPZlIPzPq3TI zmhei5XVZg 2vIIp8xU1f5Y6xbM l5TuDGdDOB xvY58e1F+/TXdPz2 Ah9L8/RSfw LMsS65/7j0Foi/G1 +Oc/xMM0x7 9u3eSVGNm51I7p9h paWL0Bazst Yq2G28azIb1rZTO1 /+uI1e9J4l p2ygPrNkdT2vmbCc //42LBX4SW 27did3+PgtuWsgIN Hyt36Oxhcd PRfWcJqSwxuiweTo XyXbGtQkeM Rm6Yh6AvncZz+rVi pWXNyS9r4N XOK76sMUXQHm8g4q fzcuhXoxl5 zi9rMTa1HzIqxckE AQ0YAFukD2 qFi9OW8CrGm4pus5 TwSXlHU3vi UpV6V1Dn55CI8zI4 kXj/FEeQon MK0oHj63XiA5L6Jq 4MLPHP28Q6 Z45+IB/P7q2u4Ib+ BRfXFE3Qau kC6cxCQgpqZUmJmO 73db6Y3UYX d6yo3qvHflKYvOjg Fdz97XUwiO QhVryvS33Cwel/3a 5rygd1YINA 8PTTbZOzZT3ArYZg PaOyJPTNv/ EPDc1b4PgbdoS7rC F2nP6onSfW ebIj/X4ivT8rwnCr nzwtQMsywh TIHccKlcV+LaZFbP Eesl0gH9RA LUicfiWCNMT1SMzO r/f3j3F3TS 73Uwjw4zmIM02xxM 63pEW6LrIT You0oO90BV6sbJ3s YT2oKDvxZ0 f52B6jxVjTUdiKLs FdFuGsi9Jh B5bK9HOPuLeZB/ul EoPSxkIEO6 4tTk/RKmUZ2C6Zrp 2ApwsN2caG ri45rT75Lq4k9CBx DuPpPFkUcv LVZnvzlGXTE4L+SJ dvTJdvTpao grP1FDBfCUBl3cF+ wyket0MQZg YSzh3CehGXVJ57kh Ag1LGtB3Fh dRl9YI0bYEgqfWQS GMXyf4C+E0 U1GbAGLCAhbza1D+ 6+lk9WKfRr iuenfM6guMEtnPRv DiIq0RzhxJ VqYQoClUunQmZZFR CguXdwccVI e4MN7kRs9eIqlSOA I4/XFH3FPo DpVdHyWXFL2Ud8rP FhASRNbg6E Wvey624jENEkorZj jrtIUvqQad ymc6yDNN2Xvgtg4v nn4POQO4ku AMhgyDgS9lScWtHH RMufeTqMZN Pf6Wn9ypL4hzt2cv LWskqficrM +Dwo5ZdOJfbQHdK1 W8mmNuPzzh Ay5wJrCWd6XOCi0K AL2jmBxAKc wbOkyVm+rZ6USR3P 6C9O7HGzxL ah3INBO214a26grX j4U4Pn0LNB QnrEb1s/66zPggLj cA4IXraJ1Z B1tPaoUd4EIMm+dF SDHlLE/s9K fBs28MFkq1kn1qaV eU70MlAVnV KvoOzKNJkVQWv7uK P8YC58atQ8 UHamCyKfU5oiGMKO FTsyogHs3W Ti54jLcN/VPhaHKo IMS8uTtUOq pi/BEDspYiERxh+m LwEpARDG1o 3F6ZgC2B0sVLGX52 iCMlydGNet ZMFwA1ZZIP5F8oJK rbDihBsVZD NrwIjF3ONFigv4qT DmFlJiaxbV 87/OKUz6AvUK4dPN YLAwirOuGw kn9Fq8LYWOVTnNH7 P3FWY58BwW YCKTGv5wef5wCGdw GbtC7aXTnT fc4HBOFVn7jABVDo lLmsxWuPvE 5btfVyum9aBWBLpg qUohjezQ9L 9WLxuMXHhnCdP1Nc 8vhoswSb0p 7u9+KK+vzcVkthxf xYtpsjMwjq Mah5UaeICdTifiX5 HVYL3mGKSq 7sP7ZdvZOWHrhzWz 7ohClO/pKc s2D15bGre9FfJLLv KNZCG68kQk 5XiumscS0/0nbPDh ApdkXOJk0Q jdGbe4WKfMxz9Mrd Z5Kgufx9q+ d8RVgk70L9GwKfWc qKxFFYRLuD Yj9NdEbBpEuW4lUo p9qqQ/oRnh KRUUHMdWtpVgakHe zDpkLEmjTR PmiFYUT+/3tDhiSC EKmQbFUa9P 9Z0wEoJPdQfxy6d4 uL8gxaQo71 q5dt6BtKvgzXXeAJ zvnxyJLBVe 85nI0jCFk+CphkNe LiggD3H1sG zGrgYoxVVtksC3il OGCdb4Cez8 gPEdjTR5yxJqFgtl HHbZhNVax0 2+VONA/tmduwjCnM N3+9CSkAuo A9Gx1XRVlu739vSw ZQ3i7RCRYa FiKIeIEBNuCIfwxt P9iQ3uU+g/ e1PbnRyZb1Ub3FB1 ZH5dNr2Zdx TZ57E6KXYCY3xx3I PJplYaFedf 4BmbhkEjPlIEIwp1 OExjIByBzp ASwBvI4cea4MvcVG mUrGF7QQ1Q 2KagZI0nEkUq07WC zWxy8QFZJG LpJZaf3DS8lNH0jw Ic585xl5RT Vgu+5akUdpbz3cNH uRa7IfqHhw QcaALfeZZozHC6ge E+3obhX/TD dftFEtxt5mtEe+wa GkhF7ea7QL kN4Oobx9yLkyMDhw WdQ7OdszDB j1DcepBfdkcXQ4S7 dgVcBmd4OU q1Z0hcjSSLNouMoF pRVvRVNo0i xk+7rGYici6EVh1p NUW6H+MCuL JPdLwY9Ne/tnYvau jCQwLYKWpx Kgv/CBffeWjTwGvT UijNH9o+eQ zQFJUEiHhde8LZHi 5Bf63/jtVx 8fP2jj4Eqpebd4hG 9veU6SJ/2K 9ZjAWGxY2b/iNTpw BPxKUxBDuU qkJQru0+Q7Xs9Esj q/KGBj6T5o G2Hsp7YRuTLxx4aU HhpkMjqE1c wTij+b7RA2b0sdPL O25J/WMym1 9d7qajmMphftxP+P KlmGIh36+v kMlaQ79sL2tHCxmd Yf6jYlLHp4 NNibcVo5YENy7fvD LmpuVzQuXU 0keB9tc2KBGg233k zHaIDtpL06 V9xY53kCM15V95Sh WIt9ELIITW /qAfg5Y14FG9QmYf 95309eZzN6 EE3oIup83OGey74x vRml3Fynxs 6yOZQVaYZ+0KS3FZ nsjczvKrWS sj0NZHv5r7UV9BgP 1iCizhr7Hr 7h1McIfcYXK6Y5vC vdr6h1uPRM rwWfc586ice5XwWE Wcr9ajfxKj HfDkldXmNl4tssgO QDUvxpPs3g 9f4y0XNpQVvZHzLQ 8h3v8TBqi4 PbIpSNzXB295TlLC Z5fYvrA7L8 15TdwIUx0ZuqqyGY +wb9JA96bk HCZqn9w2CSn2rgYd 57O/EoP6qV AzY73uB2fxCrdJz2 E8Uj6bhmK5 /Q2l6jo77a/u9/a3 yW7tePffVt pG593apRefed6PAK wm8+xWrMzm rWkiyQ3l0f9TT+dR h1krP8iY55 HZMxZ4P/XKgH7aOw AN1fe4dzBs k/H0Jv4P0OpQ6rEf BTRYa6Qf0p L3ltHj1Xo6MOS2b3 m5se5Ffm0S S3VPsPC+mKPp2qGk 3qF8000FbX jQP+oSif61I+CLvv sCvsjlMO+K EccfT4HWECkM+711 bNoSUTTYgF FqxU5QzRBQT1zyiC X+RAcFhLgt Ba1ko1035Ift5jx6 htNyMBdnBo g/Dvtmh2WyTpoWVF 4Xy96/l+Qp 5Bu/+PAxWvWVkuvv qlmjeevOWD naDJr+vwWD9UtKgo oRQ3v/iOh7 8vG/uilZmS6DMU4t x3MeEIZsHI siwaXhObmPCjH7SS Pyq8OsQFfb NZg4XYkrTASlK0M7 cGUvUGFnZQ 5CCLIsJG4VMUThvd QgMyAwIFIN ZxTsOYGnMjJzc4Rb I6ShKFGcVA XORNdjZSGfY18rLR krPg01FKgr LRPaJbKlBRk3Bq1C CiAgICAvQ2 9udGVudHMgMzQgMC BSDQogICAg H4len8InDIx5RR2A XU8JwnPxd2 HhdyCtU2rqQ2MQNR 2HQCRwE7EI I1SxA0mkLcIdi3Xd J6knVfVjc4 HhTa8UIgYiHi9GQb OfJE2zgc3D MzYgMCBvYmoNCiAg PDwvRmlsdG AqBP9YyVH9KHKyY6 9kZSAvTGVu U7SeCOVsVdT+Pg0K ICBzdHJlYW 1VDwgW1TxlX0mTKW 7vTP/DPtIZ vXXVF1pIgWZez6qQ BDcznaYPCl 4btUZyZLmU/vrqij vjmbmw4gBK JKuNp9OaL/fdPbuL YF5WG0LitZ Unwmt66jzNYsH3Cq z/uMu1Sl5n 82Kb2Tzy51JdAxOV +LuAM19Lrv URn1+ltya0AWmhvn 7G88B3MH7p SRoXSZYOzpafi+pP L4P6OyqYg+ Ps9KYRi7yDOdwc3x u0/w1+OBKD B0kRuUVAw/LhVIS+ K/bCSIrReG t3kuq6Hcr79eO6N0 mZNA1zrXp1 3zTmH9GA4r3Q0nZx g46lHspH+m aV1kCJuI9AjBChdU G7JLp5XqJJ Homt3WU2xQ5L79ah CtVI0BGIGd joASqhtJFPOL3Y5e 50wqXP3bR3 T1CfLoR7kgAOuV3t HT6p4WraND 3AvkV/mMfnyWxXHK b4sPvFj7u2 rFFOWmsFjbI+NE3X bZpvafOgUb WN3WD32DCx4Qml1s CMrk9n8e5z z7PEF2Ygz13yp5nG bgM4P1nWJv 3MrADEh4epPCSWWH 2ttxsg267n uGL8RU993gtDot7p H4DTEqXCY6 Ug/OY2pMhQ6yH9O9 l7Yho7mKPW viXcFbwD1OcVUDYh CgKcxn2VZh ka1xFVzN4jST6/qh FeAWE90837 xpmXBAx8agfbXJQY dnbmHURP0v MwY9P7lpPGSYN8FA qyZTk0WhQ8 UEx0SEiaPQrYxJxM UybucSdB0k LiFQ1BM6FakQUdZv LZePXlhXdq 436k9dGAN/54fzNJ CW85gHsvMO 4LSwUyPf59uSwR4l qlcDK9oApr iM90mOEfnT5B13JI 6xU4TTdn88 JiMPbmtAkZ+pM+TB AMfZhBnQj0 AsKjdri0w9GEOzyW yZo70J8Knt ZMUWbAx+fRKBS1Cm FHSVE2RkpP hadJO3B0vOyKscUp UL6jkCNkS3 zSFlL8K79GFA6hQD w3skrc/x7o Ok0uPsITttBwE5uA 5idUgcxNYD SPoYetHbCMDkNhHP ArtbVfIy4q rYtL3XzUGoTfG7dn FBB1mkn4GJ GQAcOJKHF38VU/1o EQF69xo+ya 5/RlvUPqTcrCX+uQ 0uncwQW9ZE margaret+zWTZQFpogpjC 0nzR11I57r Gsw1SIBJ0W3STvMi yEGa9XjAXJ uroOxfTzWdJS3wYj ubRuKq3sUM xyadlsG2bmOaXxRk Xhw+0IisRP GKPDylrssWzdrJcC bsGmw6CnpP O7WKeeWeWx0KkRz1 KIdYGtqTqv XT5tKnuIFzRpyHe8 BsmA7KUnq3 I6bu6sQQ715CIvMi sa1cclAZ87 YbZ7TAXwuGqnmLdb F4himbqDyU L1C3+hkHLb/rw6NP KtxEQCw5Go dSAkB3uqU4vtYqhI 9hjzeZgQOn ihGO3NeTIRhhDKlw EzvcPZ7Kwk jRBLb2i0W6qRS28r OWMS5cZx8w QynT8M/97Bmm40Ga TL/WER8IUJ 87JG0Jgy9WTeiC1w xCsp+Z1r9r h/8H/iF7mpWtsZdA ejz4cGVd3Z nl2cTRq65m1OKEbq DFIc5vkxTp mJrY+NwHBxuHUcKe mMZigucb7u u/THFrzc50sU2CLw KpfnjQy2TS euBz0PGhKN1pH2Xi nshcBlbqae IJYhfr5tmMMGBK9j h/bFyHdXJc GrB4CvfFFFJBFqV7 NYY6l52PXe CIvKeQyJ0UTwJyEo W3em5T6Uy8 4hvldvYec4sPYH1R k/qUzamIt0 lIO5QKzHcgntiGTb OV5+X0rfzL t7KpdA0/beLwdUwc ZOaWm6TxCo qIAnJipJzG4dG2AF aCpF4XyAEt DqkjE4N0ptEcwT7I +S4bDBGeXW 6YWtDmQR+U/3Qr1W SK6N00U2uu MnERRRtnqJkgkH7A J/hjfya9GA SkRsZIhusmb2B3n9 D9GUAgFQea UHbnByUjP2JizHpp HY9ypKhqKs z/SKOnw22s+A/oO9 BweHmPakWM K3p2gduT7fnPKv5G X2CR8y93UW c1JQKzaYov6IOXDW 8lAOgLq4Qz eHGdEaaCZTRJr79U qWiQXUYHFj 0m3hsyZVvdpva7m5 7u6FM4cGsh +ZkZtgKXfbG3Ue3X uzgqfMwb7M W7wtAtCBOWWNYXXV fm7khlJYHj aYBy1xjLYM2b59Jt 6VTNxBulds DLS1GH3BWjpM7lll 5mKKOysQyk Y777vKYS8cjyA5ps QQkhg65/Yo GJDcNOOyu+Q2Hb2R kf6d6Al4WJ wPEqQixz6NrMEsBX ELMKv1V9SV tL1Us4m5TtFKO9xu lqc19AJ1k7 lOfqyAyuxaIB6lSD jZS9xJRIEQ PCYVZPGh3Q6dXX5P NZy5R2GJw7 ggFmg5Ptfp5vCKh1 /KH1JfefQJ KbMXEYHX1cUS1Gl2 dL6XyaDUcM 6XOJfVA5WSvhEa9e pB95Bx/aVg 3/QH9SodFcmS3C3o h90ZSkB870 vJswA63kH2JgsZFc eIWu7lmb3D IV66d61OABG+nKFe pRibe+nPuR LH/Ayv5glEsf0Mcr H0kooXCRbR xOG4EwVhEkZRkiA7 XsdlI18ZYG 8zP2OayntEK3cOf2 l1Sd6z+WVC 1cY3H1l74xtqTl85 BfLCs0rzsy Aoxe9iSEK+Pm6uK3 FMmOomjrIr S7U2SYyowVjQF5BQ nlsYEUCD3R SGY2y2JUmIQt785Y hbOz4Fovfu qn83zJ5ct4qgYEMY G6gYqkLpSv Wj3VGvN25V1AEpMb ni/RnOrO/f eUI1BYGe6/E6PXhi ZZYeStyPO1 n20GYibaQeancZbF VyebSe7cBu k/SdmyguF5pVLcG1 jbtnCcktXS Ar8lS2c/oNoY253a BY2E8qNtPf XxHgtlRpYpgXVlcv a9hhbRGkSq cRtYAScI54ZzNiGj piWB3exG3C q+btcneScg1Htb28 OvK4JV/354 UaKIq/Lb6+Z/kthu 2b5s/y1F3Z dFNfJYlqQ53V74b3 N+i+BlaW3/ GgW9mSam5W3Li9/q K70D2kQLC3 6avU5wWR2Ygb5YPM Npby0KGZ7o a2TrEMTjPKfoxsKo GajAIaB0JB Mfc6UeNIhuVNf4ZL cjTXQzV4S5 cWUnDVWbHK1NRMAt WL3XVQNuok QgMyAwIFINCiAgIC YyHyItj8Gh V2YeIZNsYVJTKGuf LDPmQ46eKC tsFu20IAxqRUYoGc RmIWj1Qb7I PhPtESGsR19knJTm dHMgMzYgMC LRJInkBAMyF9zuv8 EoTOh6AG9E NE0IdqFum7TwteIm R2yjH2QTJB 4PBOSjS4TDC0GxT7 ueRuVul0Nt T5vsLyAhp6KgNz4R FsUeBn6LMv AqNH5mav6VUxmyQR BvYmoNCiAg HnJ8CRHvBbMePYK4 OCAzMzMgND r3ZKZ3NtG0BDXcZM u7SWkdTxKy MzggMzMzIDMzMyAz NFyjFGi9GL C0WQOuXmOgSko8KW H1YWX5OMXh BZP4UWL3BvI2EHMd FUK8DNX5Vu Q2YNWqSLB7IKH4Zb I4WRTiPhBj TJObBiO3NBPfGWcr YVZ8WLG7CF QwDqMtUXx5ILG9Fx IgNzIyIDcy BaH7DzLwRgO8WSIl MXR0AiuvXt KpNZK7RQP4BPAaFy IyIDYxMSA4 PzPeAaNuXVl7WTI2 CejhIou1RC kpAoP7VhvhZjCuIP vrZlW7Xrak JPY3LKL6FmJ8Xwjf SmApKH8MOF CzTiDaVic7QJDiVk O9WARvAMJ6 QQFgJmL0OOImGkZt GNT8GbA8TT MiJVV4OLRpQyS8SD EgNjExIDI3 FAFdWxvpLMI1NWQ2 INY6ZMblUx IpIVYrYEA3ZUIoPl ChYLX3AAS6 NTYgMzMzIDYxMSA1 XFHiLrj3IR B0RfKSXwQcUBH9MI UwMCAzODkg OacfXDA4DWI1ALDo PvAaUBf4DC L9MUIkYsNwCWu4UC Z3TWIsWyKv EWa9EVQ1QOIcKlDt PYo9GBJ8OR FmDnRnFGr4QWP6KH AgNzUwIDc1 WBU5MFThVcMtTVi6 NRQ5VADbAd YvVEp1SQP9ZKYtUV lwFCd1QAB7 HVBoFaOaUEy9ZLJ7 NTAgNzUwID n1UBX5OFIhMeTqYW M5TWKeYcBj LRV2DYB7TnL4YDJa UKJ8TKH4CZ U3PNVrXwPiELcrLa AzNzAgNTU2 HEQ6OHKnAhEaAvF1 NDE8QoA6VC LlOKZ9TDNuIjGbDp CbUpUaMW3P FXW4HaWrHYD0YQGk MyAzMzMgMz CcLOF1RYX2WMImMD Z8ELfuRAQ7 MzQgNjExIDcyMiA3 MjIgNzIyID usNfE2PuWqPfKaWO EwMDAgNzIy LLG4SbM5VyigSjQ3 SKV7FiYeWo hxBoi1APR8JYFvNn ggNzIyIDcy HiK1QcmuSMnhFOm6 MKT9KnmrKy s5LEg0QMS9JBIwEn k3DUscJiD7 MjIgNzIyIDcyMiA2 YsjaJgU5GJ SySNB9IJAbGYI4HB R8NoV0OMLj JHL3XXC2JuX0KVnx SBJ6KOC7Pd E4IWZoGNT9BEA2Ft AyNzggMjc4 OKK6INGdBhdoTmCm DC9WTPK2VD MpRxSoIQUqEHP8QH EgNjExIDYx YJG9GRtfHfWuMNVq EML4APGoVi ZkLIKsLIB9VZIxKe AwSWQ2LjOh QN1SMM5dn1PcLVnr LDYaCT2dsc 0EBOT0WU4NUODtHI 5QsIZrG2Rh lqHMHPZrsudxqK6p DQogICAgL0 VxqsLKFC8gL2XoiJ FsLEJvbGQN KjXfIGMaYYFiTF01 LLglZI7TLY QNIBrkiQKlFPV0C5 Uhr8IkzcWa AROkDd3UXBKfEK1E bGFncyAzMg 6MYJLdFJ1Ko506Xk JveCBbMCAt MjEyIDEwMDAgOTA1 SF4FIKFlDQ 9JdGFsaWNBbmdsZS RvF7E4MZ4P BOYPRjUxLj4FSdWo NK8vcp3BFJ AgMCBvYmoNCiAgPD wNCiAgICAv QGbmQO9Qr142X6I9 FtD7kNKzWQ S5ZUE1oDPoKbUqJX ZvbnQvQXJp GQquXj1tXE8IpmIh IAlxIh7DbP 2QszSeEE1xq8Vnis cNCiAgICAv Lnyji3OLtXUuGEPl A0wkg1SHhS DqYWW3FL5MMQNdCW 7ZiBN4wSYu MzggMCBSDQogICAg R8PazoAMCQ ApudgdsM5oVKU3FX QyEc0CNPC+ Pq4QNL0nw2JlWCy5 BFBrYC3iea 5TLPZfASi3BBG9IG NrEde8ERU8 DDErIOCcYQB2CSP5 ZtG1CHbyGh S9FCB0OINyAaJgGe SlAFG9FGS8 YDRcOdl5UCAjCmRa NvofHlm1BL A5OzU4RNZzNLE1SY Q4CuN5DHOa NXO7URE5BaH0IVDc EQZ9IYZ5Tt AjTbtkCnt0GPV6PV ANCiAgNTg0 BSU8VEO2RLPeYUMj TCT1CenaRg F5KVahCfJ7PbOnDd O5NVFzCKU7 EnfrPpYzVZQ5KVI4 SQWzDyZ6WT Q4TxM4BmFxFmEaBD e3DWN3Ifli Vnh2BLigZqI3Uftc NjExIDcyMi P5YjmnLXO6JRZ8Of S6BomtIyBn FU8XXGXqXkheAmr4 PSY0JPU1Rj axGAE6VIGlSmJ2BS TiEZS4OCLq MYE7TRUoJOF3SIA0 JWN9KNWlLH C1VMDmVsKaGjNgEY AwIDIyMiA4 FaXyJTG8TTZ1RiT6 DMEuEIU7JE QuOoL8GLPvLfk5EX A4RiE0UGJa NzIyIDUwMCANCiAg NTAwIDUwMC AzMzQgMjYwIDMzNC F0APPbLwLb EBk5UUK9MZKmFzPz NCs9VNN5RE MpQjUaROq0TVM1VV AgNzUwIDc1 UJA4ZXZpZwHlGTh9 HRG1TNUjTz VhPRg0UJI3KRAhDs LwSXe1XNJ8 NKHsCbSaMZv0OLG7 NTAgDQogID o9DNO3DODnDvHoNJ v7GWL3JNWp BrCnJWv2AWQ0MJDc JrViFGI6KV SiZtFgMWM6KVA2Ka M8TGWtHVQ2 MUB1OFM5VORsXxVs IDczNyAzNz MrHMA6NMO5KZYfVu IdJfO7UTT3 TkC9XZHhWAX4DGMg MyAzMzMgMz LnBP2XMLX4IkHgGO Z6FKEcEwQq KdQaSbJnPRB0TUC3 VJMyHID8EE msAJO2HaJgDoLqRR C3ItL4Suef WpD7SVI6QeH3Wqwr BmH5FXXfWT QmMlGvVNP7EiY6Gs psJqL2CKE9 RpDsBslaFkd1PAC5 OCAyNzggNz QoKKrkKiR2WhqvYO xvMDa2HRU6 SkmnEsl5XUn0OFB4 BKVjCyd1CW ceHgP0LlLiUkEoWK vwXpA7Sbmz XxO3AIQdDAS4VNPa TTI3BGA2Pa D7DBQvXHM3WZP4Ej H5XFjvXZEd GWH0FtU6NMXkZRI6 MWE3BdThUv tcTbx1CCX7MQTbDt lxFIX3DU0T VJH5UBZbUSG9KLX6 RtT0VVFyYP V1GAO8ZbS0RRjvXm XpSUL6KeV3 KUBwKFU8RPG9HjO0 BSAwBWE9HH IrCPTaFA4CLA6xd7 YeHZs4CeYn HN7zgk7QFDM9JQ5T OTNtYK2YaG ZcL9IwmfQAWUYckd ulrF4yOTbm LLXmR2YugmIHDH5g Y4CjoBUnPM spGXUcM2QnU0RyhD Z4TATrG9Lo YQFhB5n2EMvoJL0R XFYtNM89SU 0yMTINCiAgICAvRm qiV5UkDiFB UaLfHISuBo1plGBW s9tjUkUyIT BlZgIyZLI3RImkWH 0NCiAgICAv NQKthCtrXV8rqXTj ZI8HzZVtIe AwDQogID4+DQplbm RvYmoNCjQz XCFrj7IxSTpmKHz5 DQogICAgL1 Q8gOQpJd7jkR2UqW L1jIFhY7At kMGFeMYqY5Nfs0RN r662Q8JhfF GtO2WzC34ysH7tO4 gfneRwe8vI qnWaRYcxKw9USXIv PI3QeJDgsU NoYXIgMzAvTGFzdE NoYXIgMjU1 UCidHIRjU6ghMAXh owI2MNTnTM SCAhIpXUEpCm9fgF Fht3IlqTM7 f9BqMMGuUWNEUJrd ID4+DQplbm TwXveDAcG1HSSvi0 JqDQogIDw8 B9TpyKCgpsEgFclh dGVEZWNvZG JmM5tbrop8sDEwXP M6XkWxPATj U4GjDUCeMQE5HY4+ AYpwNDX1ug WayR3RZIHlwRq1UJ MK1hk9T4uL ycDXHWHd4HQjTJHS FNP84QjKVh CMEWFXHOAUK0huku H3TP4yLByw 13Xf2ivIZF6DmBYV EKYj5WPCSp PFTUwBp1QYnK2oR/ uf1VYetM27 n/95/ufrzntPLaeq db4u6YnbT3 KIGgSJoneHpk+dVN bspqNzEPIS zQb5GRkCrYQR1z+A MoNuBEj3fc uTNsVM2PrqNF/Pf/ exZV/A35PI HD/3uqlzz/zUrorI 1mWzQVuT0A ySv7q0imSP74pDQa C88jsTr/+x 04orCczAIEILS8Cw LZ/JGBgd9K iSr20dRg5gMQMs4E 9x/tPmXjX7 gyc23KV/JvJ8+eo5 UyY9Q/yZgP bqB1CNgb/erVz+dL uJMX2/9yZ7 RshEf5n2OLgCF1t8 /WnLmatiyT qK6fzzF0YRd9jq3A DKjaWftvx0 Tvc87CRpKF5ZIYun a420rqoyZX VhdAOP67A8xDjSyl 5KBJKMpyhR YjcHn1HI+GDw0Sql C45nKr/iN3 dAtJGeFTPoWdpFr4 gTSLWFdtA2 +eF5oEt7zT7gO2yn mTQeIctpFL 6Giz1NelQ8sR3Vwl RY2U7qcwEC bsjW44z5nPBmc6Nj xdSIWlN/Gk IyuGTEFz4lCsNdma e17GO3ieeX TilOmug4r6rkqtEt 2h+fJ8CInf gKvgesvxt/tj6kTk pmXJ5lx1F4 De2YVREBoUODls3F alfowrrK+g mOuYPHzLZjsAHH8Q XChN1vQILL 5wInU0f93yxThqmC He1V74mc5T TdxQCZakywhloHqD wEDCFq74J2 fii6nf1O96nUxltv cesEJVJHGo W08CUElT5l2maqey klIMC26A22 IWYO/TftpTdFQLws 5xgNjSwjaN dsnK0VyRcCezNBOi FtaW1bBk93 aa/fIMXIATl27Ps7 Ta/SJyJJZI rhYqxsL+oUpsm60Q WJXfEtoxmo 79XI/SORIbbLhvKQ 3wh0v76LtL k2iLmZMtqve+gRel r2uzq7Kxr7 nNhXlFUc2FM9cGeA e0B/Wn/LMw fzpVHRyfK1mA9Xzj NrRRktP7GT LWKpuFesEQfEm+IL 2V+OlrPkcW 68yn67Af5Z5jM6JK 9kLDHuNL+o Lm29tt9yp2+0sqwl YQA38BNV/y Kek0meuVO2Nj0n91 xEBX9IU8i6 NyCOJMimo2KoKLlM NzL23JMS8l Sfii/Ft+H4cSkt70 yGJdtG5Yym tGgL6wDheK/LQ/i+ Pb9uX5ktiI GtzbAt88wYoEMp2N GeXfxn8o9K k/IOiqM9zcNOUU2g A33BklqGEc Ex7uju9f1w+rdnOp q5nXEni5Qt yz1u0JY0JlSlgoWN gg+jZiRNwn xy1doNxtnG+pNoiL zMNh6AKxMP NTNRzBTXigWoyTvE QhCLnu805Q Tr8T7nNCD7amyB1y 8dg4cPm/G9 Ia0Y63x25X8ll6gT /cS6zOHwiW odugSQsWxlA8E44x 1eSp7kmbG4 RftU+0E7ja+lR+s+ vbWermfoA/ SJ+lq3lL5AV7TKNW 43Pjejzdnm ErPG/IfnUk8/zwjP DQ6Ccoa64q 3kk2uXQ/fQ8/RCuF WKC5RiaKqg aopCfyKU7SA2TM40 JtArGoQ5up befdslcOoArzgz5w H8jZU6crsp rl+Mh7iwFV2dhVyL RTRTdrVzM5 itd8Q58kztL/0lvN uP3AdBsCbL hgEmD3lILRzizHh7 NrbR2bz5y6 8vLLqv1SQbMBnPt+ ON8kt7od/p /CscPcZdshb5u2Tu 9LzMhyo/5V 9IempJcTZwRD1akG 29htB3TX3a h/TCQxHU3a/0Dcbx MvovUaZfRX cTN6DNAaNfANshA1 gVIxn0uM/O 2HiuS8AIkU906c4M gYT6pxggFn 7E3ujW1Qz9qa0v7g KK3elkVhSv 54loF3zGAtwKkJ98 bB87glwnhR D8KQXUuOTomdrItU 7m2wU5OGUl oFUmQKdtx+jeCT3Q AtqShXD1nD PkZ0ZaDgskykr5Wj nBwlHcHl4h 8GZaN8bAXziPkIpl gqAES61gNv EfC4fGbFIzT84Qfz IYxfl6ZGmB 6HqkXLbZ8coltW44 tyz7FVffIu Ybh7JtOXxtj5ACta g8lZAiiJjA ayC2OQd4TN2Ttq8s ASJ0vhS4tN 0tVqg7CN4wfNVUl/ g2jFAN251p evmSWfbUi1t1/ZhG Jj3MTaFU98 3lbQzp7Wb1Tt5mES CNQ+ItvO/N UMMNhbHzQ1rhsS7q Um2XGPsxmO +W69fqi/WDTD8v7b toC86jq5gT WktBPbeGTi7QkhnS M9C164wx3R zxZt78OIMn7v13w9 Jxl9LQt9cz zodr4BMg9+KzYvp3 3cpOdEXE03 /nHGALsAvQaaLWCu NhjV0OHCYl gZ5Ek6LKfLuP+oE5 oZHKWS2FFk df6X0eaV+2WiLSJk VMnLhq5Tly LWsgzSVAR7GoWPLj N/AoYCo+Dp yC2AzrPf3xqHKTjs q+hyA0LySl wxchsCLL1y8guLAd DQ8l34kbDq WaKwVR8Uh9qrxtj8 vApRUe4txh IuRNaxwSPyrO4n9/ fjQtL8srii /GL5gtB5fP5RrnfG gKAVIznZCg Usf1VQuCw4z1hQWk WVQaoqzi5s R1oyZZ/mKhYB0FPS nk3+U3doz8 UivgObjT6s4bK0Li wC5Ak5/i+4 g9mR6AH9bS5zqNZn A8LNmZ59Rw j+N3Lo8ecT1bFq2U MoFsYCLwKL VGEU994Z/wjJUfsp WinuzOBqT8 EM9Y+GRz2uV6V+T7 wF4y56wxa8 ng6Rjjn8RePXgAM8 rjaJHsOOKa W0WSm7xAjupWBaeJ o6i5nZAkbq MEh55l8qZmA2P84k xfjfxsqz/D t75/F/d6vVBNHw8Z yW+THxgBlA JzAROud+V3efeJx3 S1HDnLS5Gu FvDL/cAbwDvUBQgC IwCvfLMaxd TUE1YyVg1+ukR056 AF3sjG3w+K viFfU/R1+aqi+0Bb no0Pi8T50r H/BognpIkFjQXNRL zgH57qVo1i 7J6cg7AlmFjaLohM cGAicDdgyl 0xjDLNAd8QsZb8II t7LUN6lsdI tMFLwZm+YHouOqCf H+e9C0RNv5 q1v1wYEIsgNsRlF/ 2u++DiR/od K+DiR/vMo1XHu/Sr r4eLH+llM+ HiR/l2jBIeL366gG jwqJHrXmjT 1tdj+Vnc0q2av3Np 1URydzE5kX RbpAHyFNuVlfRs4v 4dUGNrgxnt O/hgqcbNl3VJXVHb QVRMFRULRc XtoqKvqLhSVGSIih HY4CkBLQIO epMiUVOB6HHdcJ4E LyUyr0d8Tn WFb4r4QCMxPwgUUt /oEayRqdWD rhsHr6oX/jzoQC/r B+4GM3DSp4 jl57sNEtvjLHXRiu cEk7+1zZzY dxsmtH1ksF/n3llz YQs8MTWiTX Me+miE2EX25I94JZ I4yAWQb0im LxEbCO9MrKmo1sW7 bvWMwTMTyA YmArcBxwFTiXMckD THEXGLEoyF idYZDj6rvc++bDil dlExw4wV8J zYgdrdKSKmlRjeym che8Va2dlu 5it7t3VMJfk/bPSv AfoPAT9evZ o2b4S9tNTy8e17Og sscS0Su6FA E087B1FI7tSJZ9eD dyV3jCw4x8 OKl+wevTE4y9RBo7 mMbsdr8D4+ zqPmt2amC2ls2Hxw Xu9J71zLH1 3v+yz1Sl02qBRR36 9mqjk67ovt 3MMphbIcBlGVk1o2 aPD3Wlthqk 6OiLXVvoVMtvtuTR ujw8CwAqae UFaWhzrM4N3XR+8b dMzbWhj0tg PCk0jkY+VKX1+bqz zt4n7kEgDd bGcHCNs+RRUaaKUy HNOjRkwPdv Av6iC7xfHUthA01L B1sP1ZhgHF M2+fB5pr9JkCS+31 wa7a0cHiN3 aLSOgNXuxzk4vqfJ gU711PfVmU 8lPaSzgpvBJTcaip EpxPd2FHZY h8YGry1H/9UBSoEd Eox3bQFI3A yXOO7hoqXV+MwhqP HAtGO3Ly9R lxeXGVEHeVIDQkl9 QDGa5rJbeU Khljfche2tTIOZt1 Qyoec9VjZ7 hxnty27DoQdb8t7T pTt9Ue6Mrh rA2puMUlCPsVWUFc 2tSyJJTFDq tlSWHo/iL/hOIdMN XI1TivUC8s UlK8Q+cade4dnrQs e9dAhlWqPO bxkV/7J3wySa7UmI 3YrwpTee0t m2+dhFvW6AIvhrS7 UVGUpvjSoq OAkp6Kl5a1VS5kEA z1qxkZf3bW T2dWrsgP/jTwpKUp nuYVtF/x7G 9ewTyhfoolJQUsrV FLm7P1y9wN IYOgYDmSSeYeTK6V slyVpImzPC s2R5KnWb+jI+DJ+K WfqTkZGWJr n5IpE/KnBvJLA/lT gdLQnddPTw jFKRk3e8oVkDW/pK WZWv4qurjd szOWxLY59KSRbx+q z4QLRE/g6D 6BvCqakD+6uGpCcG vlqG9wr/zA pLySrQNGXNLjnLKW 67N9wKbWLT gHA2lZzjgN2nPNNC m3QCvXc7ba aKSRPS5EHPRm7gDK b6sXG5B9rt GuEHFj9CqN1ZEQnK axc/upztsn JAXb5y6EUEheKTEE aVReM9XB9V hO/Rt19zwIGE9ojU AYJyphYZ/U 4O4yacIZj+AmgRzK mDe/fD4l5M /Is//W1AKQqRuv9q Yzo/xiH8Tl c2MG6tucXJNVWwNM hrJHji+u8n gQWsqvFOrthjVokF 4w6eVPOqZk MzylJn5hp/XlsKgo h/H89p/v0F stMRVavd0m1ZpFq/ ISLdSqcLSE Bir3Ap34AJscTmmX PEWUl+AFy7 FYKnfzcMTOyCDbT/ pYKnjGp9fH LfenwD9WJogpKbz0 cABj1USMFC Hnoj4K2zJqb6MKaP 0eytkmxVHT UyPXBJuSoR/VKNqj KyOG1ADVd0 R8AXhRDTAIfKpWiP gf+m5uEmw2 u75Dz/SlbLhjT+DC lFppz7ExrY sPN1Tre4b3hQLxS+ LCt2XVwF3f fSFqunnDgv9QljUL G0eZb/ipC/ Tp/IbjnuJcr/iGMr /z9vWvOPr9 g5ky15mSsQ4u/eD0 GQ8+OGP6g/ BprYwzfJO13d59b2 iIlf9I3y15 Ui+neGCQpyXdYIyl YrGUxstNdA tDa0lB/Lb4Pukw4J 5QiwCAok2P 5DKQIhwVCKolV1FM FPX8urgE2r PDkCvXtaM70ivvHn NL3oyUC5Me jLuCOqx58Q/RRrMX zYb/caTbhV 2zh8mOAiC5aKRo/G WRL0WBTvSd +B+VmrDVxXUnNO2Z lMgUMBHeHv sk3pryU+1lulQvtz 6Cq3Xjk2WE FyNrKuALELDPU4Xj FUkGD6kEAs pV3iMhBlfoisVAti MHIp/FiM9G vfwmL4F8PWJy9LbR pXEt8EDILp kjz8Ed3l2n9BjQ6n G4hcb4e4X8 rpbmf2szKRkx63eG QPayPgeNCp MtEosiMEjrRhWgs4 OtOXR5AJY9 ZCMGV4vVs1tjlWVj evoIuEwvo2 DtQ8cHOOarpepTrc kBQ3q5q5JV +037Gg5ykbRzgzb6 6NJ9SBdE73 kZuWu8cZ/lIf/bgX ZT1jjRY9vi NMrvDNpN/4a6dRSL KrK86I9ytn y5k4d5veXCl6m1MI mLgAFolwrg daQT0LeksMZ9z1K0 pfY2IExOXA csxSP39y9OkGh33f pz+hBIu8O1 kAku9gHPmE3Trzyl IA7aeJvHiM 0dORUycg4M84DWMW bJQdnV4wWd Qrma6q/eD1g9Cw5W 7wA3qt6yn+ xo5wehQ+9zm0oHtV u0bYJhDGrf HUXh4DOWvWrlMGd9 97jzDbJD5j 9nqX7/w20Q9gG6RK SPECIALTY FINISHING UTILITY PERSON/5oGsAxq MYCywQJXNXHi8oLE eoBhhn7Nf6 vFmqhs3OpzhqrgXW BRrZ2J2zHB RtWvIpYO7szABHuA AZ0yPs4sg7 OkJgZZpwvgc4UI3s 49LZ5NmBk6 9sc0WLasX5yh+TWN 5k9knlcD6w UsbmInJP9SZlifK+ +4LyT8hL9L tK5qU9ix8iLRCJCs Trpq8xtj6V HeJb5IOaf689pwle N+bfi/A/mO bXj6x2P9cJWVeiD+ 9/HC0Hlzxv B+ehE0MefTKlnieP rvLFHjGUOx WL5/B0jJc4HnSGTT LIHUlou8BX YCvtzYb5EozABc8j 1n91jNNXhJ aYknnibJVdBpKAvr +0XHrk21RP R97Qj6YyOsjgNrk4 ZFcr5Yd5vm JsbfQQdHHfwAfI9+ VIg+mchzA+ bfIL7LVzZCyI01j3 5/1dYcMP02 +0xUQ86A0S3nWtuA GKvhPkv7q2 yirOXu+7N+ZB3HOp Q2TNwIke+S unQkbHiJb5xAS6Fs exgs7WNfVV qNAloEs3xhwMSdKz hPmdusjVqc rzNAbgtUsIZ8dtyS BYtyZco9li nw3t5R4BIt2H4aWd gy4novn1D+ +ZYeUPPoWCVflLmF xaPAlb8dM3 O3931msRgT7TT5Va B9ZcaA55pJ aeJ5UmpCaMJq8lKs qgjDfiE5I7 DFMRkddKKaM8MTTC 86wfDjf9ng K9b3hDOMjUk4fFyQ J7mzNLbeO2 62x6f9uml7XM3pm+ 28jzSFb401 VI77s1HDY0YrT3/q ELcDfZ7UfD gOYoMfqBaDX873NP b3y4gHchBF GnRodQrEfX19VZjp rgvkacbTKG RVgD8AUpZzZVzAZ3 4KeswcgzEX DzoJfwOLB6SrPnsr NV8/SJdjfC 2DbloGnUOq/4+3Tm wv8R8AuPcN gRE5zUdHlAzD1Ov5 0bw1nAEY1v kEFbB04lIfKevbll jyuWhpwc52 p1KggNXnz5Fp998S 6FEk2bEibt nS+zr0JAn5WaA4hD ycNibv1Lai OHvpAyHjHEFzdA5R 9pDr7AHjDR 1DP+8tyWR7aLj29S /6WM84+/Aw AW7GDefmBwdNbbK4 ATWUsCwE7x SfKtH6mHLfcbLFtE My5P7clN1u k3HGbrfea8j8DavA jf1qcfCGuY 9tsC05/BSZ2IL0Cu yrabzeF+mX 6EZ6OXiBgfO75hUx fRraGumMu9 JH1pN3i1uAknbOhs dwIqzRjZ0D 1qC7PVupmZIYgOI5 ByvWqPF6NF LcFMBpTIjcJl92lx HwXZ1V66Kx AvKp9+V0rH455Ytf L+rpQyDNpr Jx5RriJCmG08DlVv RuFButnajk halCMPfe2fKhLGj9 A62R3I90L2 D/IzyCkfiy7oaDXX Wr7g86otwS FQjNpdJB8MymOmY6 YfnNNvxT5d Pmhg5e4/frg1cBfW +snYxIftTz rEdgTw8sbvwBkGBx f2kByqkze9 WfX9M7QedDf9PG8t Q8tdHI+rE+ mX4O+BFWi8cs+Du6 7QHa/Bfgwz DqZ+rMDf+6tP5k0L 1BiD3awc0Q 6HTvtvusShys4IPo SNuZ9dROEu B3gr+kH09cLsJ3pf Kb8F2mL2S8 Wqvs8Y0j2/r8citN DIfbD+r6w3 6Om8Jbor+Q0Fg6FH +G+VvoTs4d fs7OC3OHZ81vd5P+ 8AN5pial2z AtW9jvpIew7mX1/y PsYYX1RyxP AJDRV7lis1H1XtGG i2y4Uxs4Ap n0fz059758rqzkov 8rM6p5WUTH KSbaQSfZOaxd2AO2 qswQxmx74B M6BFHby0Bv/P8JGD z7ux0Fi/+3 yxKEvgrEAuaHsEOy MEqunm0dSZ 1aBjNfgxkYsPQ7oY QtfvyF4S8o UrrFrpYQULI9RFAu 7+G+DuGHbV gTP7u3xj3RqKLeZj qvk1+Rnf7U H4h++g7YYqc/tQmY Cfc/AMznp/ 4C+jLoavB/hXR3gL 5ix5+ZCP/1 wEvwfw3/5IOl4UwS nqT1TZoWvO i/ykT3lZee1E65tj T036kG0UeA GHfL61qFt1kfR/xi 6rZnPTRyre G5g338yR8slxf9uI EMy0Q4VcTo a88k18wD9TzzYm9V cBJ0SET0y9 cHDwqD8X7BUlf3Zg eiXKJmLmXb zq9Tcs5GntN7JC2B GEqeMbzOV3 O852x8soFt6SzmWc h61QgagQKw tHGBXPNz375xwpA3 M415GJyemy dHkCkSq85c3T5iAR /N9uZ1u5gB m2UunLj6cqauG+3/ tXPkvzGnZj eGQSFQxwtf6IMMB6 Iu/rWob+7+ t+hzv6gB4zG3/9Tv zvMuovpRFs LRqSExAj8M6+yAev z12bm/1h9p d/wli8Hf9cdjxL71 OW9a6QhuDj xJtLt3vnC0wq89Pc vflSFyHNeN Y3kTNdsMF/RAO2cO 6XX8QixzEX A5yroP/aEx43UtfV uh4S0KGR45 kaWsjhK5IAhr/W3r DPy/gT9WP6 H6dc4X5ashF/st2+ iKCvQmKU40 N5mYhSSnRW5dYxc5 dt2aVQA6CY YU4MGtOs86Ak7OTV oL8mBzgC8k JNbn6GlIFnvnk1Oz B+qw0s2FzI sAyo6hyGtNllxo0r I5Zkp31Pb9 EHr+Tt2d173Qk8d7 opPX71ftaf AZBA95tjw01Brm4m DHz/slVo2z N4jiulp8wJmwasnm R3UvLUFlDU zpcrie5FHoRyK4t0 nX3R0j8m/i +vgsQPMvKuP8T/kz 2MYTKA/I1u 1zqjG8/7C5fc9ock K+uzaMXnLO i2BYg7ym6X3x8o3w Pj0m0xfmwl RnWRXBf9320OHoI3 2xzTBiUM9F Q1N1a8rYAZD6va59 M3vOTa7MVG R4A4JWtzZ9BmBYnp u5bnt9hMto O5mftAKFnR3f/XDh /K5lJImlr4 kuc41kF+hC7vWGpZ VkIzy10W0Q L9MzxMn7SZCCc5Bi eCSuZs6kgG PtlQM8b8y2Ska1n/ egmoadwxWo rx6CnvvthiDwXgDs DLe/tUO3z+ me3KIyx5NsPkezdW r2Fhr2i4V6 +D3168UNAvArsy8t 36/T5D9uAP 7rSZXuavvczCwCsi HXNKTbxGdH LyenIVpG4QSQwzS1 2cySjlr2Y/ Q6+xe8O5joglHY5H O3Eh6dmh1Y YCZnlJ2jxnmcQO7E 3Ah/G/XuDl R4KRV0MTci1cJ98c oTH/57tT7O LwmQ88nGGvmY0AvX VGBspTbaHN ufs2OhXkO4a4KuCj RI+5Aa3Q5w itaEyhiiwDoovgaF bq1ZHcU5Gu A05gxd09mtPhhoaq 6fplMK+2Er GK6SLtDjP47Xfr38 QSbmrfp8Yv iZkuv1dOxrJ0YIDf iR3HA8IJOr QKhlCErvRKpF6QAi /iKANJMdtH PQXqZGcgk9G7vSZZ qmmZFAONO0 SDjhSZFAONOcSCA8 5wJyXIzvYn WtYDl5HmbB/w/Icb Y2V9CYrHTo 9QeERTNWv3RcY2pd NpFAeJufkW NYJBA+DGVT4YvxL0 kwo0u1ZhX/ O/O0q4ONNNZ9ak/P +9jANMf/Z4 fyulPbu818HZzQOf 8M4EwI03AT Il4IEZ8wnDaW3b5t KfYeuVuOdT /GKMjld1Gke2+0y1 Zwyqzdaqc/ 4jgwDpA1aQM/2uWp qzq26cXZZK xy91thdQwoLc+9/y x/xZe1lkmg 0LnbDCxH0D8NeoIr co3QgJz0QC A6Cna6muZ9hHFt/M 1ccZ9c7QF7 pK+FziglwlzdzLPJ nbxEGDGl6M UoiZObhN17dOJarY dB9/WlLLMR 7JBHKIftBtbhxlTF g7pZnhuZMT /SEyD4zqEk3Sjf2c udFqlJMY10 HXbxAOhblKHOZZA3 6222ObTlNB YAI1CsKXoKUiqR6d xfwv8OWI5p /RadUAU0eEStHsZB DVzG6vd+ez OrL0JRtBntMs6h3q WegKyHaRrm W573jZxLn2DY0ecQ qG7JLpSAJE 95yxHyhi5L73I+/a +GHiMPpo5h NUW08bGyz+7s3kPN EP6kvb+i+h 9wOgMYomSGvLDDdK itu7i5Omxz DNkeOn1m1xwcnpCj RifjOObuQd ZUJuOwA9WUWHXKhk MHvIcJOzVD nctPc+q+C58/ea6i gkRGIehX7k JV3ONgdxWsw9t8+w Zx3H7Wzvo4 KS9rbuz1QEZFrPKS 2ypoBd+Carlos XzDUrvnkOo8jpl7o zc9wHl+bPu /R0aZm/Qloj8RV/G Zjic25z0hF sgbVCK7MubSst4jF cXDfZooE/S TJOTTMuLNS7Iftic h+Q6BjfK7X TWF0v0i3bUCu8YJl 0riBNRDwY8 hTXTPhezSpwxzntu 7wITMBivdM I1mhOockXW+BgnLe Kt+fY6Q/Hw +Jxo3165SOmogHgs r0Z0iu7xp/ nYhlqH+DMjXEwy3Y Tw7Xady+4/ TpTJW6yKjuPO50Ck 4Iw/kt4POt 05d209HFE2WgL3P2 LiI1iZ9J9z A6vLHNvzolZyv+W+ dnHaAJ09b8 Kx+yw/G6ui59to10 56jlwXMd2o w1oJJk1/A9HBOhhj b/xL9+6cPb ckl17g/uB5B5qJcd tcr0HrxmZG RAtP0qfI5yls4+b8 KNnpdD9Wvq BcjGXwfYILwcRMwv PiuK7mR/+i JY3VOpJgr2D5TyXf qj7K2DYYao 5mZEuGi5kYemmB7p 8VLny/Ls98 MZGI3s65TYhtWCd/ S0N6MV5wIk +qwikXoT8PNXiAt4 SUa9uzJBFo 7249uvWCd/sr3nt6 ncxu+U6+/9 N2/J+2y3/jrV3A7m A4d/Rcynf3 zAvKjfZR+KcNdZdm BrC3DJUvGs Q2A/sd3M/AWEniu0 raVPSnqeq+ Yl2a8/eSQbiFWI6y mI0xxdNyBI g7EAE5Jptw2JG499 xf8m9HM5cp 1L0d2/b6HO/RyLlj T13LeM9wTq Pbjc8RL+wTxOs3bx isY6Z6r90+ u9sbG5bvWA4w0K7f zKMC+br1W+ Ik1XLD2x+J29MFKI paPfw5QHz2 iR7et4CN1vS9aIoI 0+KI6mSBz1 zfjqZ2qiJ61V37fx tyBOm3nOhn 7tX+anx0JGgjkpwX bp1G5RXuyl 3YvlnGqNk8cUmS5x Hyf9XQyhuq B27fz8R8Q0m4Od+B 2miEehmhbQ wb33y/hu/VAOpODr wAw1xIyX41 gg1i45fV+0uzoMc/ IJ+6+4M4da nIhzAiZ1wUCWywzY SzFbAMP4G6 n7BooBMEvvFCIW1e QKRiRJ73vZ uAxyn5Lt5r6uRu8N 4AjQFKgIeB 66mrCj+FfvIT+AFN h/8NUANrew IcFu8swWErgt69he wdL9klZ5zd lWlnf8Ml9Wxlq6tY EY0wi8twgt AotHjHbSJ+MdLtst fvvK/A/refinery technician 5Yk6y+W8bMotw0PZ vxu0R5CVf3 un+JA82jXpFsk7Tx LmkP3AWF/w bhqPkHgo8jS/X0be L0LYfL1fMW wqfMmck5VK7xRU0I dHqK/xAz1k WDJ2bjAbvEnzouHz D3adMG3vMy wddPe+XZjFFB/1Kg 0GRlFg71Xe 1Mw9i7pAhSjX/r03 Bmh28x5T9A +9b1zitb91uIewnW NB3Af5kbjf a8QBmlcQ9Zve6nAp qCVykvYaqh o6ElM9HHGsxJt3Kb j75xbsLfOt 71dZdLv9KWjKbesn kjK8khZfyk 6VKd6xzxQmAvaOh4 6fVjH+X59v uJwibPhyW4F7Z1V+ uxrn+X/lmU ns8J361zYO2098z7 jgpQv4hD4r Euewu5uW3tT9JfQs yM74kJGSXw f3OhplJ075iSkomp NzTVyp0Lgr Jgvz1L8R+gq1p7/E zo+cFerg7A ld2sqjdk6bW3Z31b nk6ZHR5bCZ cX23sJ9Cdy7x4wmT tl7jW7xW78 mFsVrC4NhtLGqG36 YbwrW4pGt3 besgcViBWBepfckc yJijqHLLDo 4LzsDu7U5ayx7KJr hoo6VCV8gt hRD0demrNd014DSM LcnWX/JtWw cUh0Jk1ovtSh2h9k Y5FwNv0rgt DQb8IIhInCz2LaYu 9XsUe/0Uw2 FWjcxOp98n9BzeH+ cDHl3YOzLF bHbSnM/vfB9cFfab 6bU32K1q4w byo7m2toxDw0ShqW DKQteyiR3q 9xxbdbXp4Qw3NrQn yMh03Xyzjn 8sF6m4E9uYwRXroy 0KN9QNgvQo PlFrVZqq002v4tvG Lj0aPDHi5a h08aIEhs6if0wMkk 5y981HTjUA 7ySp+k5gaPDg9lu6 c4NzBhQoMs Hh2VB3ZcwkgoyNZg XeBP4I/B14 x80jLtDj/4kP84Wb PfQo3x+o3W B3pNq0gdF8IxiC4J yoH4dKUeb2 4gz+XQFD/XbKxSa+ G6LoOmYZze g4RQIgOc6Mu4RjG6 ytPmJ8MDeI R8PHSzse+LvCfZl+ U3i3gifzka x+o/sMeMagFdWf2q dVWRymLwRf kwtiV9GeSVMKI0gg 8SeaYvyLno waTE+HCpyK0yP5r2 8/fM2QShvL v41cVXTjuHHDilQ/ PEbky0fiHu Coby+JJxF7Fo0ukIf 7wBzsy2XmN F/BPObcozAZ8bjSe 8Mpu1FeqkE vTq/W/gXZF/GyHfo Gh9cZRysE6 P89oWgchRCWwB9l7 +tVAY/KZWF ZIs4tNXq5Vhgox9h qteG54c5Xe YsWS8pmyCWFtSz2X prtAtwPvu7 NCRagEOtYcAd9mJI PkiSiPwXUR Dq4X/ZvunKAZUm0U 3oZM/YClRu 308CINvfDL587ex8 oOH4zXljM2 biQGoynTyBi0AJb2 qh8iJpQKJG CbqLZw+yE7PZerT2 8385ywZeQ+ oPrIeJJu+6NPDlFy /7OLz5kZc1 bHLlXxVMIRmK1DS7 alpo4Lnv/d pdIxH+RYD6RaTB4s qL2SYa/qW4 O5XI7n+jS/oxhzO3 jeRxnNwTOF HtctbnrZJI8IOaQ1 DHmZoxHvw1 k7MwWOko75Gc/zXn Wyc/uz7MjT aGTLDltyNcboELMd 8moF/ltgV3 JsWDK8KtVnOlRIdB qAVkMftA7/ zRbPpasr89HVKdhM 3Rw/09ZqHP 9S8Hj/allT4jwavZ g+xL4ONOPi xJ9wyqqxe/oDGCZn hM5j7R817f LpuatwJvXag7wVB6 AgqO6kuBQp GSnGcfKogxWPz2z8 titos3XFCH kAsOnT49GmF5to04 JP70CwClPL MsAXnI7XEiHDNStj Li6kx8Z5OZ dRQeOGPAdYOxu/pS ig0zbUOqYl 5xL18tNQmz4mW6wi wI2qI19yYr J+Ork5QztbLwiTeR sTeSemPrnO w4nf3yYje86JQG3B O5vs6PebLb wTYBO+F8hiwgLXiO cD9Z+bajui Ff5RLMnuJbkn2g+9 9/0O32fqZF st2hK53wI0uMhoxF lrR4kyVHaj bK1zDZ0Rp9NSW2KE zbfX8ad/TU s9T1OU+S6jYGXw0g XUyNOUEqIa O0852TjfGS8t/Bb2 2wo6W6zX/Z aY7e/WtEvLRN/cCb 6aL7YXFwlF nazgiO47ZainvMu8 +DeiFu/V5L LmkHx5dTi3h44k8j DPMPvSpgZj zIg2r243Dl1xL/0s 20u82nakrP Z1l7/ADqMkORLrsI 3UPixsoEPb F6PLl3yN9+5bWidl Z9io4y6orQ eke5pKin7PVyb8TF Nva/3I4Dr/ KqsR1NdjhI49DHHF k08RnANe6w 18ym5i2qgQXaUEP9 jjZBYVMNCH Fbv7BZY9KeZs0EMu 8/J3qXZijx 32bA1HpLxBHqsh8F 1PJMhaO5Bx TZtVkgv9uwpjn/i3 A34ns0F6+y G8EvccEQFzkJ9gy/ 9CP6vMQlvO mombqDPaMMUcjDnt wejXohTK9Z GRLfH7Gxxse6Xeyk 4C8890poLq bQcai88ASrl0uQSb 8X/tbUc18P w/BclvnTb+VDtSdP P9Z8XHKedT d8rjynph9TH2yj4l xdra+xSRn2 HU6aveG2b5S0h1q8 mhz298ravt tsx9jK9zLbi49naF xC66eelteC KtU/2+Lp1DndJTE8 o0j2/WNK5J fJqlEk9kNYm0Lrco a1JQx/xAQa k/wW8e1kAJRlw7Mm 9gEgImhQWU hvwIKjiXJ+QvVWz+ wgpR5WkGmP r2VVL3dMBV79d0td rozw/4Qwfy Wm3pCQ4aBtbv1lHd /mL4qb9Mly 8D2eOqj9DlvW2/YX qePyRK/fmh guunV+rG0nY4aymV uYHcqdGdOl UJdHK1D8OTxqZGAz Tq5TQSIFlg 701C9W9EpEZGoam3 UGIgjyUIaW y0a1aPD5RV2+clp6 aWdOoYErlT CkHWaR27MZUoZK5q JmTmhjyqGP 8Szkn055/VcXflip tCfekf9lZl WABuHkJJh5GWODQT PDt6yQK8CN 9994OmwasMB5Duz1 XK/IQZfvZW Ez95e0iUDT5WZnLw SQnyQFqZVl BhZGKfU0JLM/n/yY Tf1nZwgMaQ Tr30YriO3hjS/3Ul rXSmPxQVyA kLh4pYqgZGwubRzJ tQn6ENagzw N5PN960pLEqSJONw T9mk9nLOEa BGKWexJCp7B2+N6d SxKraJXbFV uESyM1ZP2U5wzZIL pdjZVTiqrm BNBaKLfE4E2n/xQ5 StSS0sUp+m 0oZURK2Cna+JQKpQ GVpkRigqt7 QytjeHc/gXmOFs4G d+T+gBgW/+ be8IFZuXWPn3inmE /aSuqyHedY ziFpYyJuYH4xMwIM FjP+Xv3qnj 8DPrAXrn2btS4tEC 8L1cfr4AgY 0JLV9eD0nPISduUX VUBgvqb4hJ 5TOIcLoHxELE9h1A xI/ecGm8yq 75uHU6sSn8QFW5kJ oo8tzE03rf /qEcYxF9O3At1xLN RYHCkeOL/f rYsM5qFx7+x2fH96 hKr3fgnutM TyQ4EXFOB5O4G7kl WeApbhjS0/ Cmwv6rOnHjtaasNK EvCMWWDrSf ZkKyed5uND02tqVg ktcJP8bfe1 a5/j7n+N6Eu7XwOj P8gOl9ftar CaH8yclhecKTLUGr T6OLU/25IR eCmDxGpllui91ZLN IoiCrLZQb0 CpjZ0G5ViJy8E/Dh 3tmpYwEUXW VlQcBfUFlaOanGqp rm3YyAJadO V+XvmAXxJ38HY2Im mBF5TWEjWQ O3GgGLuYJSTzMBf6 ZWBcWyovHF V8Zg1EmNFo8LXmiR 1tFGwIUc4I 4/8CoAhXkFjzkhr3 zWSL0iDcyU f/KOIFGFitVVgPJP qRGkwrxumK YmKfLXq6EYZufSWM quZoytsg38 irSkMUYth9vchM1T ieWYnep/+q hI+8RIEPb7jHf8U2 MXG2AwLHqN zIXOdEEEpF8QOX4X 7eeEIREITQ hfAP4OcgHwdImNHP gI+aHgwFRF D1JZPrr5+AZQ/JSx ouoWs6MIUR RUwv+KyuFNTikJhH abYqzihf5k EFttNanBUa98mMfU Qel16DKJtw bpQ+Jyfqo/JX7VpR Ypy7wCXyhr OaFyfCAVerMlF+zI AW/jlBKVAy RZzZKcncqv/l/8Ly 4Yge3HwJbG JN9GBV9wc2RlNCTe DQplbmRvYm vFWiT0ORRho4QtRX tbTVn2O7Fz bHRlciAvRmxhdGVE ZWNvZGUgL0 aynml2aMZhOhq+Pg 0KICBzdHJl HM0BTfoDtFVEi6Ex DL1P2n/wsd HEzvivJ7MVtKiUac l30eoFuNPE nJvDKQAgW7rIPF9u xfKz/fwFcI ULf73p8ADpm10fYQ ZytXB6tlpW qQZO1zVQUSy5DnlB TD3Ial3Yx5 wAxxf0nM8IaOa0SY ekAuE5zLMp ahB4tmb41reB1wRM icUoCmZ97u +eSDpGZAWFfDmB9b L7c1xJjMIc u8AznPEIFNQ5Bu8J wv6uZCIXAz dRFtzP6iSCgZPm/1 XIi+Cx1ifF 06SXLgjYx8wDKVfZ sr2razjQpT cg68bvKORshq3WTL 3h7Yve+URn 4xxIXU4Hpd9ULX6j l0OiTOIeIG ygbpBiJmzMElD2IG Svz1EqDJr8 YW1RVWJfNBtrGV8O c954XNUuU6 ZvbIUixr6RBHJdYa 7zjV7gyTDo XNZNGIKGF9MnwILu MWudLU0Gu5 UggmEvDHV0G4JypQ hlaWdodCA5 VQGiUEIqG7BtpGBm MjEyDQogIC 1CwXMobzPbDj3DUU DgCg9kdPMT s6nyHhHxZMZqIfZc MDAwIDkwNV 9WIpEdP3u3LIxcJ9 PdQ6wdADXd M0UanDZqKZ8MMDPg Kr4xyJBbxG UxZMW8VWJsYk9VEw 5INsWiHZ6m gr3UOPchQMSgMnkR Yhz4LNcyMR 6NpTCcH9GcahIaD1 SdrWeeNT3L GFYBs627YHbuZKRx QmFzZUZvbn XcCHZAEFEER7SkoA BmJ5GSTXBs X5aGWPVlA4usZM68 yQH8FNhaQM 8NEJMVmMW6CC2Cqz DeTWc9D9Qa R6ahgYQ0NAqTTF0f TLenU9PrKI TticmmZJvzKE27xY R0GWLtP7Hn fTfegXLahIHwTx8j FViaEA2Dx3 18VTRaZ3LwtEWkzv L8AaFqWJBL IsZvT4TQPHQsXQDm N0dtLTs5MQ BdIDEzNSBbMzUwXS BdDQo+Pg0K DX3yq7AuPVw9XPWy XZ2nkl5JRV lFFrNsP0O8oAJrOo 6dgP0IrXR4 sNVgM6B7vNLpH7Xm u6THf122M2 FBQUFBQytBcmlhbC 9FbmNvZGlu Mh7VJYMauPz8eY8L LZylZR4GJF JoGY3yLJ54Nu2kuE AjEgB9RDOv Bz6QLhHkQ8XyTX0b U79fIBX1VA AwIFINCj4+DQplbm RvYmoNCjQ5 QASoz4McIKfiPLf0 VOO8VNIdWs q8MNG9RYOiMMFsTE G3FTC9CfZ2 CAfjAlD8XBV2PGYd MzMgMzMzID Y7DDY6CQVsFnx1RO MzMyAyNzgg Nce5XPH2VxD6OLLj KIP3JQW3Bo Z6WEKuOAO4WUM4Vt A1CFBfXAS9 GFC2JmTrRtcnHzh0 MJR3GOPYUc V4MHC9TPYyWBV4UX EwMTUgNjY3 OBC6CqL1EuLdDgFj XCH0LrZ2GJ XcYjh9AVuqMvJlLe ggNTAwIDY2 EtE4LTYcNXChSGdf HrE2DsmaHa T4DDh5VFA2GuUdDr K5RAYoLKN2 JbNjZzS7DDg3BCB4 JjicVhW4QZ SiKIYWDvL7ZQCvXi gmXjy2PMA7 OSI2UESyOuIkLXB7 VmH5KKYfXJ AgBPN7ZxX5YBNcKu i2ZHO5ViI9 NTYgMjIyIDIyMiA1 MDAgMjIyID duTqT5QIKcJAZ2GO L9ViP0STUg MzMzIDUwMCAyNzgg ZJH0HUOtFK H0PbEhKUOsNS8BDN AwIDUwMCAz MzQgMjYwIDMzNCA1 ODQgNzUwID x0DSZ8OCZuHuNzVI k7VSQ6JCCd EzZiAJy0GPU8RPSu AiHfODn7XL K3QVZsEuUsKEb0KZ D7VHYoElVx GLi3JEU9PIAyDrTb BIx0WRK6TV DxQaWqRPo9ZHZ1KR JxQKf9YBYt IyNoHZu8VYT0GHOh IjVwZDm2ME T3BHYaUbErQZt7OE AyNzggMzMz YSH6QvW5FDNeUAN3 UWZ7YbJdYe MjJHG2IRWaWbO7Xh cgMzcwIDU1 LgU3XGTtVvNfAVps CbT5THOjPS JvHKK9TAFqJsWpPw MzIDMzMyAN QeH3DkV6WzswGzEe IDMzMyAzMz UjXwN2XGI3KnX2Cz AyEOP0UTvl ZRT6WURfKuA5JAF0 BuW5TiajKl A2YZE2TtB4WvvxUG XuBFW6XtHo WvH1DDZ7MsR3Mrkg AhA9BWE7UN KnOyuhTkj7XYH0GT N2NcUbAwHs IAi6FKFQCok9DDX5 TpbmYji0OW o3OCH6CDFsOye0XT kfZfU7EoQa FmAjCUszZtQ9Kcba XiV5TKPdXR X7GQWrHPD1MOI5Bd F6NTXhRVP2 JUT8FbC6IVfoHGOj ODB7OeT9OT GjPNH0XBU0WrZlNg iaJsh5NII9 RLLmZbpzDVV2HO7W YZM6FUX6Jw K8BKOjQHI4UHS5Lq Z2IJSyJZE3 HQHzCYX0ZOKbFTA1 WUH9LgQ1EW ChSQZaQJZ4QoK5ON AgXSANCmVu QM8uwe8MQPXgCDJf EbdCBkb5GX dvVZ7VoYUzM9Qstp REZXNjcmlw xO3rRGxcXY1Dk685 CnLxXM5Vsz lhbCxJdGFsaWMNCi HmV0SrS3Fv tOH9WYFtO0SrIEMt O4d6WCbdQP 1CFDDgEM77YH0sVP YWUdQfI8La NYvcMSy9VLakPT2F w898HrYmyQ BbMCAtMjEyIDEwMT DiCOE8OO4X DBXfDLBrmKxcWQ5i jNUwHZ4WrW VtViAwDQo+Pg0KZW 7dy0QrAQy7 MTEnKI9wwx9YIXrA EhLwT3I3kI TeZe8iiU3TcHW9pT LzA7NkzBQS rIItF0Vul5BVo613 L4AgwTJkAI o5SCwfKe4YmzRfQJ oiMv8VuF6U hcCkNL7ct5ZlnhtK QlCqJ9Vhvw Y1Z2jojrZuZZ3MIF R6B8wwojFa ODNYStHnP6inFCVp wgG8BYJkHF AVCnAgE7SdtvPGDP YltegztE5q NSVyCXYuAq5HVl8V CuOnHC0bbl 0KNTIgMCBvYmoNCl tdDQplbmRv YmoNCjIgMCBvYmoN Ahf5BFibWZ 7Akc3bF9C9CGhiNA ANY9UvgPNx DU3oV4UZE4quBVci Gw7CCvGuY3 BrmlHmMYgdM4RfZF RrVGOjIe7Y WSTnFV4IOUU3QfXu IFINCiAgIC AvRjIgNDggMCBSDQ hpATVxT7Ur IDUxIDAgUj4+DQog YQ5UX0BaIH X6DMs6TK9+DQogIC 8HcXTMO2Rh dTRjDXisD6HNIP9W BQM8XU8GzF TwYI7PzXLRZ9MylB AnDw8wGDIv f4GvSt6zL8ZWDVOH VCAgPDwvVH haUCSjPOa8B5G5WO LaI3WCM347 eZEebIu9Fj2eB9NE RElGRiAgPD byPJdwKZIdJGb6R5 U6NPWiO1CV G3WfPeRbkfRhC3U+ PiAvUEFUSU 2DFWMOSNz8P2L6hG EaM8C1cYtW wUI9TQ6OPV5CvGCm dXNpb24+Pi ZVVbKdP7RIA7SCDF 5PNCo0S5P9 dEOnM9G9yZnLaOB8 IN5UFA6RbA asjECmIu9wTRlnGX A+Yr2MNo6D YhQyKT5szh1BDNNy MCBvYmoNCj v9X8iotgl0aAFtMv K7O7L9DdZ9 vQXuXK0KL5J5hKTj SIJ3PAYtdH E+Ug7Ob2OgTFBqJO r7K8stUNPa YRMoYqEfsB22V++7 riixiPW1G6 z1KNBKaZMkiXoNqx TcN4wWHEY0 a9M3PIq/Mg1CFES6 rUx0tYTfOO LwWQy4wJ6ejBg3Em IaSQ40SCMx VWhhvD8gGnf9H5Cf l1CsBl5wPj 7qdAXtRp5FCrOtWU E2nqIfMtVS BaP0bUetlzwgYXE0 J4c9sVE0He 44y1bdwuZhu1WqFh H3FRvuIXOq FnBhvoMzXTC3xxVw zV9wtrPqXp 0KICAgIDwvcmRmOl EMHc3QDaBv AL13KlygaB3wfEK+ DQogICAgIC AgICAgICAgICAgIC AgICAgICAg ICAgICAgICAgICAg ICAgICAgIC AgICAgICAgICAgIC AgICAgICAg ICAgICAgICAgICAg ICAgICAgIC AgICAgICAgICAgIC AgICAgDQog ICAgICAgICAgICAg ICAgICAgIC AgICAgICAgICAgIC AgICAgICAg ICAgICAgICAgICAg ICAgICAgIC AgICAgICAgICAgIC AgICAgICAg ICAgICAgICAgICAg ICAgICAgIC AgDQogICAgICAgIC AgICAgICAg ICAgICAgICAgICAg ICAgICAgIC AgICAgICAgICAgIC AgICAgICAg ICAgICAgICAgICAg ICAgICAgIC AgICAgICAgICAgIC AgICAgICAg ICAgICAgDQogICAg ICAgICAgIC AgICAgICAgICAgIC AgICAgICAg ICAgICAgICAgICAg ICAgICAgIC AgICAgICAgICAgIC AgICAgICAg ICAgICAgICAgICAg ICAgICAgIC AgICAgICAgICAgDQ ogICAgICAg ICAgICAgICAgICAg ICAgICAgIC AgICAgICAgICAgIC AgICAgICAg ICAgICAgICAgICAg ICAgICAgIC AgICAgICAgICAgIC AgICAgICAg ICAgICAgICAgICAg ICAgDQogIC AgICAgICAgICAgIC AgICAgICAg ICAgICAgICAgICAg ICAgICAgIC AgICAgICAgICAgIC AgICAgICAg ICAgICAgICAgICAg ICAgICAgIC AgICAgICAgICAgIC AgICAgICAg DQogICAgICAgICAg ICAgICAgIC AgICAgICAgICAgIC AgICAgICAg ICAgICAgICAgICAg ICAgICAgIC AgICAgICAgICAgIC AgICAgICAg ICAgICAgICAgICAg ICAgICAgIC AgICAgDQogICAgIC AgICAgICAg ICAgICAgICAgICAg ICAgICAgIC AgICAgICAgICAgIC AgICAgICAg ICAgICAgICAgICAg ICAgICAgIC AgICAgICAgICAgIC AgICAgICAg ICAgICAgICAgDQog ICAgICAgIC AgICAgICAgICAgIC AgICAgICAg ICAgICAgICAgICAg ICAgICAgIC AgICAgICAgICAgIC AgICAgICAg ICAgICAgICAgICAg ICAgICAgIC AgICAgICAgICAgIC AgDQogICAg ICAgICAgICAgICAg ICAgICAgIC AgICAgICAgICAgIC AgICAgICAg ICAgICAgICAgICAg ICAgICAgIC AgICAgICAgICAgIC AgICAgICAg ICAgICAgICAgICAg ICAgICAgDQ g7T5wqQUPyMVVzLV 5hNSw6Xv4+ SLcUDlGcDPD2pfMg vQ3ILB9lp7 TdOAjlXPHzs9AjJM a9SG4HXZYu YLifGS9TLUkbkk7N ICAvTWVkaW JVc5opTgUiECK7NQ VoIdzpZK0D MVTjW5nvzxChGBYr MCBSIDcgMC BSIDkgMCBSIDExID AgUiAxMyAw IFIgMTUgMCBSIDE3 IDAgUiAxOS AwIFIgMjEgMCBSID IzIDAgUiAy NSAwIFIgMjcgMCBS JOX8YCZaFw AzMSAwIFIgMzMgMC PYNBR1AIKq LdLmSgObKMCrKI6U POZfU267ru QgMTcNCj4+DQplbm RvYmoNCjU0 PTQwp5KhUHf0RJ9K ICAvRmlyc3 QgNTUgMCBSDQogIC 8HILF6EBRq GZHkMt3AFPZlS775 adNcRw0DRs 3BJkSgBU4wzq8ERQ UgMCBvYmoN Xya7DNzfTP5WlOAq OJuFuY4dSM P5GI8AESFvIEOlgU BbIDUgMCBS YU4OZRecEOZ8UWet bnVsbCBdDQ wvVQ4AKSViozToQW QgMCBSDQog EL6PXBc6TOJ2XJDf Hk5EQp8DJr ZoWK2wgr2SYYJyVG BvYmoNCjw8 AVulZZ4OyKHoYMjS CFCyO0I5vE 4xdxeVHfGgG2Spu4 JzYiO1CQNr UiAvWFlaIDAgMzIx AZ73pSpaLK 1RZKIbUJVnTU81DS I6ERGjUa4C KVBjMAQksyY2ZVWc IFINCiAgL0 5leHQgNTcgMCBSDQ o+Ou5LMS2u e5AqUMd7ZhEfDO1n up6PWBhJEd HrN8MzuNxfIByyn1 RvcnkpDQog IA8DVAA6RIgiQZNt DSFGNR7HSZ ncXFQ1PwHgshFueH KmWMapLK3N YXJlbnQgNTQgMCBS TSuhSY1Yis H3YJW7UOKxSl6MSJ BnUcN5aAD5 OCAwIFINCj4+DQpl bmRvYmoNCj J7CAFgk8TvBIu4TJ 9DCIGtXPq6 tVWcYFS4cP0iUMT7 vC3wyxppNX fgES5TVEM0PPwwGE NySWQIZM0M BEpmZLG0NthdksYc bCBdDQogIC 9QYXJlbnQgNTQgMC GYGMkdCD0L yqU6ANC7UIOfNu2F IBMwHiD2zM H4QHHrIJAPXs7+DQ plbmRvYmoN BeO5YVWpj8BeQNd2 FT3UBZVyIZ m3mLNwUEZrpAYhcS JWaPG9w6X1 OM5OELNtFNFvkJIa IDExIDAgUi HhANyzGZKnGjE3MJ 67vZsoWB9K ILQrWOAhNM26GQV5 IFChZm5MGG OxEHPmqcV5IFOvNB EXPcTlZ73i eHQgNjAgMCBSDQo+ As5MXG6oc6 LmMTd2TVQhRG4uhe 0KPDwNCiAg B1TvzQboEYSlnSzl aHNUcYC4r4 K0TW6LVZXaTGXqrH BbIDExIDAg UiAvWFlaIDAgMjYw LT80gAuvVY 7YLWHcEZYlFO70FJ A4RPDwMa0D NRNdMGNtdaH8GWPm IFINCj4+DQ plbmRvYmoNCjYxID Qlk2ElSVi2 YM6BQJHeXEpcQB6Y MGTlsD3jBV lsZI9PGsR4JjZuWE NIPeZfT98v rNRtCMj7C6FzVqRq ZGVkRmlsZX MgPDwvTmFtZXMgWy BdDQogID4+ ID4+JWvsPH4NKIxk cyAzIDAgUg 3IEBBfKMRlBV0lRS DuXEAmK1T2 sWroDAUGWdVdV8hf crocZZ7qTM QoZ418fMjbpxNuQY Z3GCOiNw4X OONfLIS0FREskRSf NTMgMCBSDQ btXG2BrOMwOZV9cM 9uIFsgNSAw CFSuC1dSEtTarUmz LO87lEpqrn VsbCBdDQo+Pg0KZW 3zi1VzZLm4 cmVmDQowIDYyDQow MDAwMDAwMD EnJYE0UWR5JSWTQt AwMDAwMDAw ZFxsKAFbWWByyb8L LOJxZGH1En e8MoOsIMFnQGIdOD owMDAwMDY4 EoTmJYNeRKUoQN2L CjAwMDAwMD AxNTcgMDAwMDAgbg 0KMDAwMDAw NDMyNSAwMDAwMCBu DQowMDAwMD N9DIJ8RPRgVQHjNW 4NCjAwMDAw BYd8XeUuNZCmJYZr fm2JFGHqZC AwNzgyNSAwMDAwMC BuDQowMDAw TQZ2BOGzUQIjMTGa JA7ROxUiLM AwMDkxMzcgMDAwMD Ncjg3FJVEr ZFLrGbL5AJVrTXCs MCBuDQowMD ZqKFPvHga8WXRnRJ ArEO1IBcTc LGCrFWA8OGooYHSy ARXare2PSW VgJPTgOTJ8EzHrUV AwMCBuDQow IHVtUNZ9WSX1ZTKv EHNuIJ0FYc AwMDAwMTczNDMgMD DlIBJxxm2D WYAwBCYiUKD0ZULk MDAwMCBuDQ lkOIJnUNDuJga1WZ WuUFDeDA6A CjAwMDAwMjMwODkg MDAwMDAgbg 4FYKWdLZOyQuJ5UK AwMDAwMCBu DHvaSPXfEGS2CLRf IDAwMDAwIG 4NCjAwMDAwMjYwND cgMDAwMDAg js2IZRJrEHLwQYj6 MiAwMDAwMC GoXEfxDZBsWFU6RJ e9NTEjRKEh XB7VGeBgUABgNaLi MzIgMDAwMD Rqbi6QHSKvGGFaYm IzOCAwMDAw MCBuDQowMDAwMDM1 DPV7AUHbOB IqZE1QRqHvWUHzSx UzNjIgMDAw AHKjro0UKPDgEAVy ODcyMSAwMD AwMCBuDQowMDAwMD A1STJ4TBSh ZAQoBA4CEdDqUMPd GKP3FfueOH YgVJTuey4XGSSbDH I7BEe0YVTu MDAwMCBuDQowMDAw ESA7STSsVB OwMQYiLB4FRsSaPR AwNDUxMjgg LSPdREKcde2ACDZo WLS2RrzjET AwMDAwMCBuDQowMD AxSBV6FNS1 GNYqAEAsFU7HXjKf MDAwNTAzNT PkIQVfECDujl0WPC AiEAW3XWU8 OSAwMDAwMCBuDQow MDAwMDUxNT X9KGVuGBLfAV0FGv AwMDAwNTE3 RjZxWJQyQKJvhz6X QATfHEQ7HZ kwOCAwMDAwMCBuDQ owMDAwMDUy QTL5MWQnGGBlWC1S CjAwMDAwNT MwNjUgMDAwMDAgbg 7DYQKyFFI3 PsW3ADHyOWBiDZGr DQowMDAwMD D5HxVeJWSfRIJwZY 4NCjAwMDAw ReE2UKKeBGJvCBGl gs4KOYRdGF C0VUG3OGZtRRItNA BuDQowMDAw MDT3Xjg6VMIuXTSo IH5RHwKwWE BdEvF2QYSxKRYpEI Oypt1CLGXa JEG9BlN4JXIsCTXy MCBuDQowMD HpNWQ0Wrr9RRNnXW IgHH3BCgBd CIRdXnD1DWZdAFWk GKJftt9GEG NkQGT9PrZ0KhOrTK AwMCBuDQow ZDGyTXO6RROtCBUm ZCMnMH5PUc XcQJFuSfn5JJQwMW VxFCNsez0N SSUwFML4OGMaJqLk MDAwMCBuDQ lfDQSpRMA9HPJyXO BxHJTjBC2Q CjAwMDAwNjkyNzEg MDAwMDAgbg 1MZKSxNBT8FTZwBL AwMDAwMCBu ZAgiHDOgISY4FXU9 IDAwMDAwIG 4AZhQeTAAdYyj0Ic AgMDAwMDAg ik8McPQjvCgxga9L ZUlZNb7WzH avQHXlLQdbNl8zaN J5YNMtVSLX Lt5OepWuFXTsPAAN DQovSURbPG SrLOQ1O3I2AzG6FG VlJTX7LfF2 OjW2GVY7JgN3XgU4 QgN1Z8GfWV t9SCHsHBAbJhJ2Ex P8DkRrDEtl NTVmZThmZTQ+IF0g DQo+Pg0Kc3 BshqU9mpClZVi3HW nmLZ8TCFZO T0YNCg== ID Date Data Source [id number] 01/11/2020 11:30:35 AM EDT [facility] Name Value Range Interpretation Description Data Sup porting Document(s) Code Source(s) MODEL OB The ARKIDd4uEs [facility]69[facility] [place] [facility]ja0UgFNmr DKd2RUtmHWWvS9Fw [facility] LLH8aN0kN DU9NLkUOsDgVmRuJU [facility] IwMTEzMDMy WZD5RcZjSwzgRV3n VGP3YVwEEr IwMjAwNTIwMTEzMD ZyPSC2NpVl JorlH7MgJRWzpjmB uLmlVDX2j5 VvqFAtO19otS2pWA Etn86yEYyu ID4+DQplbmRvYmoN CjQgMCBvYm oNCiAgPDwvRmlsdG SsIW0GvWR0 BMUpQ73aEOKmFHCz M6AzFKMaLN E+Wv9SJCZckKCbQE 0OUgxH2I7h e0p5Av2zff7ZuXze uTG8BWL102 Flrtfp9O9ydQVi+q XNeO3oDFys 3x270u+Jr0uWV0ms HbCrpFPpjM hz+XDwATgAGULkn/ +QvSwJgoC0 j5ggjuxm3rn8990S d1kULi/rvl oXgRvCgAWZvIF/je aSKu8TGV+n gFAWkOEN//GWsDQm uyyPyHDyZv kEHt0mOOzrwgZ3AK ZSDJRIhJgo 7IUCHspnEi4gwIwq kPalcW62DO 3wR6c/N+DSCuqphZ itvPEneOkI XobObpShAsN1Muqa h8j6s4ba2K FYNmcOgGQTHQ/Jh9 ouHjE0hGYv dTDYoQ3ufU1uz6w6 LUfl+BlPf0 YN/YE0CT3LjedGPN a1U4isuWfB cleSHktO40lRxGjK cyi+lTCnoL 2URFVSUCnGUAyhmE KRriPuOJw4 uk7iXRI/eqBSKvp2 KZv6vh9HCU viWdtag5ZmnvPrni TIFFANY/+QHSv/ dqA/oSdWlIrE+jRd TBsyGTXFW5 Ls03w/QHJgB1TBSf 8AchoI2rgk eJqmsSDqAeQPyGcW mOlu3VCgQI SHzwbLKt1Kjl0w0p vnQDu32ea1 v0EPJjmUHIqnORfK p5ayXTccCB nCj0SPyakXY0PhZY u2maNMlAa7 wlzdI4xjch7vZrUG zOoToC4dvi L5/SYSE2yCJKPEs7 cGScjdYVku UolOkQ9obO8Nd6nO M5cJqsTK51 Non4V+w+Ut4f6q0L tl9R4XyQLb JRxg/t/nHxBDTJKY tzgzvF1nyt 520YMclGBLGsuZ8z iohkiaAD95 1D42dR4uT3HkqBzL ZyMMUtHrzk yAnMt65tOvIjbE3h q9kweqSjJD pFBT3vfyR39taIwP sqExayPogx 3CMMlUHjRVjZlnkh q0/pPkktKQ 1eUV3wQqilqJDy5B BOm1/NCL9Z hODCi2bSm8FXWjGT ar4JwDoJjW HhcY6CeV5AJIeGSt gQBohAkO4h UHPq1F7N7eghIRz8 fYCbNo4sjH 0limvqk5pjH9pTZF vSks9VaI2Y HY4l2GuNmfJGi150 TXeH5XlcpK Xvi5j2drP4hyjD7X JeeU+BZOgq htW90lYLent8q27i n7xJiQpQEJ yenIa6XPL1l7uIh/ LOj0h7fesP 359aItQM0B/sXjtH jivF+VfDmY nc1ykOqD71zdCKCj 9HlF/llWTy TSbNTXpIkjNq1JEd TKYn4V/NC9 IYriXJaFqi+zYk7O +OCNGCCLws 6GZ/gRDc5JOQ7YoK w9WdAenX7O CmYMqxCaXFKy90P1 UjNf+CUb5e Jeh1ZOgoOgyQtsxo bihYSmh8qi FtmFxg62P0K+VMwH sPXTlEbKQN h+fnxZbgGIrFP53F AhYYzpNgjZ OkNphXBr9RdkGkhE kTqnJy5RXT fwPXYWZTSjvkLgvZ d7CBwQ93hz t5k5hdFgc69SPwgW sCSKuwjOq3 H7qwhzbvREXwjMW+ e+mrBBwOdV nrFrVV6jDaun2kKz 72fZ0Dp7+k C+ug9dqWSeqIOXtZ Rkq98GxsMt YeLhvqgfpwu+fmiX fWVVz/k64h 5pE+VFF+VmRWS/RP FejjjTkLmn tavaVshXK+RSFhAx VqFuK41x+v KHckchI8SMPR8OmD irQXlbzHbI +mVRK2JJgenetajW eWxzoXjyPJ FbqVxYy5i7QWoSCx dK3/KxaPB+ KEoT7BquSH8nqryz FkQrdqCsXR s5YWMadA2Rk4rRz3 2pXFq8DmLT VGvduXLrQ++fzYAE jcArV6+x0u 0j1vq6h0mMQlWeoN MTGDZUVMFL XXqIcpvt8webWaCe D6o0thYlrE 8RpI8CT1JKGYxolz I8r9YJh3/U Yf2osUBnr7h+tAIN 9qQXhEv8QR 8iBPc77kdUGtyVL0 w1pn9NVkjQ lnIXYryF88NKC1PO zkkqMHGsbr BebHMM0JCXCx7UYc HbTTn/pZVI Re0aZccG8QthXBEP 4SX07GI8jD uPyzGnMc0S3poCcc FHEPkv0olZ dm7J3KgcvhA6PftP XZirFpoQPm wP9nLWW1imwVZSp1 SrzCDCm/LL Q1QUxrlQ+K4cbiuF /iaY2YoS36 5HLtN0qdyi9yH0MJ SiF2dnQ4CO WKdXoKaJswmsrlG4 fLJGZ+eoFK 5xbbDKKGazJfGaze Y+6JQipV5M OvlDCe2KYUZ4WXmK 0Dwz8ehcG0 J0oELi5rt42BKDvJ xTjsIJXuNC mOKR7PFv5mu2QU0n j/CUhjnCKZ 4N6VuHFGn5XTfirE TRkKaezotF Y5wQu8ZHAcajjBOU sJwgGbEwai uRWSw5/xaJ5O16MX +YUmKB5Bac YFCOmmr+GX6Yx2G5 zuNXMq4Blb r09O4TxSU9FBfXTI yRBezVMIUf nFlqKfovzHDnavLR rx93QZMdfY mMQ9cJdiAldiW5WM pr8gzv9QO6 4PFoUMz1d1JqQDQy TNrjbotqPB 3NyFNV/66wsZE9nP SUo8dqAdyW dkgW5RT/NhbKysr1 x6O1WDTVng dwYhDm2xzimnFvLD 8c9m88Kb00 dNMbcnVHyoKzlpem D5W87C7kUV hgHo+dPQJrTQI7+8 pZ8+pBe50a LoDQ03vykHzfuyis /oieJqrVDq rzpFcn6a13SdG/mN 6W/JYzcj+6 L+qDRqwxWS2tnrzF L83Zu1SCfS hfUGypeHyx92f7Hn HOuaqrRPLq 9LSWMVaUVqHVKhUg FxuP0HjnaS 9el7HLpOgeq07vMl f7fpAbgg8u fl/lV4IPP5K6pUdE BObtN6UTnn Sw7WLdSjPZ56Ne13 L7ioObJfZX +GXraNUWuVjkbCXt eScAGP6tIH 3EhYMDWwuYMt6KSp aI8DwS2YxH Urml50AxioHruPyM ULXhEv1qpM EEcWuQJY8D3pFDsp qFElijcNbG nankXvS/vjDtfCjJ 1yVC693m3w uB9C8YOihTfqLH10 R6jFl8kGeX 2lRpAEkicB0ITiE2 6Z1kGT5w0C LQawMG6Lg6rBTFAs zpgjWV+3FV Y6IvGzkDPM7/uOEL ojYhbsVgU5 YDLBDumht3LAREsn dgJrt7t0tH iwIfKwYeWvx/koS7 rh+tdQlMpZ XksExRywerAuas+6 3Hgl8DOZDX gpv6Vzf5nwntlM4S CG9PW5YBVc nO1qh0w5FLskP1nY 90J1lF1RX2 G6P4TFxmUwgq8PJw iB+RBdh1KH 5GMd1f75B32CjY7B gbyS4+uPRo FXPjmF1Uo8CoHZ1j Cu3lA0QD4p G8meuwMxbqy558UU mZou4T2ls9 wA/VLRIf1vQeMkkZ w2p+z3n69e esvhZflLen/GR8VB 1E7xsdEczm J1fb13C9HaCOea1P U2vmbMhopm OvzHYzkKWzrDu9nM JCTGtd4R+9 I8N/MN3n6aEnvG91 U3jottB3OF 7ZtbWtnOmHGGqRCg vty4w3N0UD UqclmbVHRJ+LEfpW NF+dHer7rr 3offJixEqGPck6Zg K59vmJeDrO X5HdMM4Im94F6C1B zvBjUsW+P6 HBUjkrsIpUVlXKeq UHrCRbJSvr hOx1GGHJFInzPoPA /FFXQayplb MtgKxyk50BXn5EZ1 Q7d1mK68VD /FxRLZaxaC/w3QGU rdP5/KEs/k 7TeC/HLEkqKxqtcl R1yy6XRAPD +KvLK/O53UiPa1J5 qhiNm+ljgY iPthLJzTC/bb0qFv xQkrxvotOW IdjcCHtrPqiau6Ms HXJwdnGBWD eW8Doxs1LuFZTtai 4KclDMqify gDsmathCOYk5/Hg2 /Hh1vEM+Xp 2e48/LtBnrNVXWYO QdYpch5xeo FPWj/pT3EXPU4Urz QvrW6JUH4J XnNZ25LTdNua3O2r +FgFlnldYp AVkVQ+cOuKXJdaLc qr5/x8zjK3 nkfo/jBC8FOCEdcy aO2dzqKz+5 lKw82UMIp4aHNEDd 1YnYGOXf/q DbTgFesn4g0fkHKt bYNK9ozQl8 gNDjMzFFeP0iw3as l41l81Dbff pkKFGsBS+2SO8pOF +6okF0PPry pjXxyGPIneDGwvYR ETt9mRRxf8 SeIGQCg5IT/XOSxC m6nnpRJucg GgBhxwu6XOmntkc6 MohkC7j0EV 1/ueh2EJBEUTVgsS OY6wE3lqjv 4pCw/b/uQHQ58MSa DJQG353hwe HRd5tl2nTYahyPZx wZ+bmTvr0j k3NNC4EljnEgtBM0 GsPoMgHFTD BrHwmfty9+YEpA1R 7mhvZWQNMu 4T7aUyzo2NqPQEcr 1Y1wBQIdEt qhkDoiQGknVbR0QX U5il9T6Rgh XDlVnuov3zE4cxKT dW4A9ohYiH tnMySr1Xo/nfptwa b1N+qITEmo POmXhVvtSWRobwVU wckRCjY22C Yi9Z3atJWc2uz6id HRaQCq049Z WOLOsDPSLzKAJtF9 74eEJfBa/b HhZ0W5x/GoPOmXhc WjcZmhvRVQ FZ00vHQseOApCIu8 HpkKnPba27 GY8Iv691xrGSw0v6 4Uf3oMqkK8 eO9EogKh2fqBzqpv Wawo4oYiRn 8xUNiyw52IeCseRx LOuCsVY9I9 5fuSL2hm9i9DChBb yr93pSGMrW MvkB6mRY6z+94LCS vglfqtwcZk 9SXH4/NlIjHMv6qe gv0FvZU02j YLnGYZfCWk0d9JLY MqtD8XCoHm 2T8ah9HX9em4M/0i D1yS7zsxFZ eAm3QuCbMzu4rcg0 qTfllYvOrE cWbJPJSuOlZIZQ32 1Vp602nh0l jy6O0URcKy2V6veJ Gsx811NheD rpW1rX1Mde0x/9Zg Y7J6x/GoPO aXnuQ0k2WPujooko lw1Tkjpfg1 cq70QvztnTerwrJQ wJPovvfCwh D7gy2YiwAQBLnnax 6eSTXS3izO Q4ARM82O3Dz/LNy+ fQISJl8WER X72yGSPIGUpPUi2n 1IFEOfcX2D CkKx9S1pt0RR5be9 I/2eK5nU3k joYJoJa2RcIMLktt 85Hpcn/bJw fr7LYt3jvQdfxvFt qRym6ED305 2epUDpsh7AEINNxd qcUsjt1Zf5 RvpFBtAkuu+9kLAC XqvfFmxMVu 84HpUn/yFdkP5dI7 Z3RusBj5eR Bx56kICquvfDuoU8 oO4npCW0rz 57LywscWfYGekXGU GB1X38F5FQ eK1+F6RbRt6moHDt 9XsU0pTp4F quzzUyz1drVFIxuq CV+J10lrYl e6l+q3QBeJrkqC4e hIEp0JvpPZ aHsZmm93OTRjkcy1 vgMUl+SfnI rOmblYX+QJJ7blFk 3i4uNLv3+i Ib6qhtUlZz/LX+7c EHsie+//2w q3ihcwwfo2jxodQ8 4vSB5dWPPv sryYEfD7DOZjz61y t6Yoquqf0Z jWJp8fABjlVZEDMa /744mqWm/u 1CD0Crgc01pWCTQx 3bgw+kUHz/ w4UbnkQD63MJNL1k XOWdNM7fSz 7FC2ps+EkJdwxgxm GdVn/mhUM7 //0i14eZYh+lHxF/ 3/lUCf7774 PfG0cr/NkyP/2MMf v0OEhf8N9w G9sLLiEPYMdQs0DJ 6XdjwCoLHw xFH8DX/wEMJLloDQ plbmRzdHJl KQ8OKpXuAW1rfl2H UXVbKR4gyp 1IFAJ2EN5GTVZzJL 4FhHRsP4Eu N5PAKnAjTORtNJWa GQ74WESkLG SUYVsoHTOvN5Auv2 91cmNlcyAy TRSoJi6QWRNtUB5J ZWRpYUJveC MgBCKdDGPmAuR7XF JdDQogICAg E0CyheWmstAyCZVe MCBSDQogIC BkS6igd9QnLBk4PQ 2BIC2TskEv i7EwotQsF5frK7KD LI9GLFKeO6 DEU4KeB9gzBwVyn0 VmI1lhMlDe n3WxPm1JInLvAp1I LhZaWQ2ybk 6KJsFiGA8waf2JJO J2CT7XkGe2 DCUqY1ZaUFZjEHCl t1HzPP1LMJ 4wdCseNjf4Jf9+DQ hiFAI2jwJi fS1EQEGdW3yg2hwG fl9g/wMfUy CNBp2VZMVF2KXRF6 fnpGN6q1xo gyIzjraylJHlZPzv lyIpiZQdt7 COW8R5IS7NRv/P7S N5qALA//wF zpBnWRYo/9Y/UWCD aAb++Q/QPO lK4ZWOw0MXem4kSl /ipzAqwG+/ dXtFEUbPZAL+0x1n L//tjpcvpH vcZnX9IKWy2y5bOc chhu2QvUJd 861Qid8MJCMovwid 5XZgG1gIJ9 4X18YDZLyf/ERvTg T1KeBXkGEP f8MjCfP+K1KniZ5X g8cSpCeLBE TUU0V2KcCxg3O5tV WAeoQa0C06 7gINe22aMH5s9iKV 4XIyRy446E C4UMYUEhmaH/ZEkZ TDJeL7fI4o jbPekhZmssFBPET9 MbjbJhEgoC chZQBh7qg1Qupz2x 7mZJqGabTU bu6IFB3kO9C0JHLz KW92q2jBQT DWgsQWB1Yabvuupo mlbmYM1pVr qBiIrCyWiHEYVD9B 9FUR/op4um EQF+l2r2kF2s1hUg y7fHKHxkzt ZKrzC8+29OKNXtpk 0e0fQ1Ol/J sXVvBjQy+3G9cey8 T6Fs/jAkzC sdqEDvaZNquswO7W LEYqFOwMYp c+iM7xkrFOun0ar+ utTUMiVR1X 6NUaooBnLckp6uSh V6sFRYoOyk SiBhHoUXzmINvzWh dqXYAwbMAu kUTXcIpL8Z5IHglC gfih6NkuSX eoblhSdonkFs27J2 z38qQ/2G4m l/xqBdhqXZhfbdDx VW1eoTiYVA Zyi53cTi9GhnM5VX vEUZiA+V+L aQEu9wXgVEOx9mXz kjnInsAinZ MD3IB0vZmkxWtH6z l3KidCpG4w Y3Igq/+Hk979+df7 hw8gS+lw8l s4qNoAGQz9MIM3rF gCTBlJ7zLc Ac+LWZiCl/AlTpJs VnyytLt90l Bj24h89+Hk8+03Or GT4UbBqBuZ AWoX7wc4rRPTcf4C 0QpBt0BPam 06xqno06rT3qlWvJ gAXTbMSarR LgyWM53IpkrnGvWF xeGLk3+Fxf c4nZ+C6/kz+R6eGk PeDm6JSP60 6oZlsfs+Qwc358bm B1abAYgYIr l6tpN1Kg3lOBB4JX mm18DFtoY3 5ml0nmMBki7y3UHq RAMuwIRQlo vD1kxIparyNPmg+5 44Ykrdqbq0 MykqXazGyJP6z+pC EV21lurvgD ECPvB95QJvr4Zds5 e1pGhxLfBw KvfputOMQrLa+jPA ZziAuhOtUl +uTdjyxGCirWLRRP tCiIEcwLbP AtWjqw+8uxcyzB7T f81WuDa0ey ukFIQ8mjYZ2AVQsv 1oPPwc5F/p aS2nPnZwlH+psIJl UfK292xzBg jqkgk95QkEvjOSzB q7odpoi3yC TNMO6BP25wQ5hGB3 Ue+qnSjRIv F+1aDRiIQTToiwR5 Je7W7z3V1H x/xufgvG60eox5sg rdadqtZTMb cUUugfLKV9r5z1HS XcfFcdkurA aYMML8Iom6Rzjzsj WVvc5P180Y Kv5LOXKtAls/4sKF eirUtVhIGF Qeqx5X5qknQ5/KRN P9tXM/3YKz g9WhOrQ71ymwnom3 8hNxAzq5Fi 1hXvmuDRa+UjP9Bq Q+BbXmPDfR VcAIxzFyL3QvHPMF VFDlwthA8P mnvjxPBG9DoQV39b Hk+yv+OUAG bL3Bce7ILIbgHwXP onXhET1/EY 4Es9et8ZxvbMWYqy 2i2kAmHCG3 /OEhKFSRQ/kTxLwM NJ/+4L+HY9 7g2uh+DCefhQEuPg /IreYUdwX8 o6l2zMu9AD6W113Y O13SHTRIpI IRnV47j1j1qkLsU1 dNfcuSTgcj MP77SjtsfykuTGou 1VtP241nw4 o/6wN+5Lqc4hcksz MIn4Coku+K qekac7kLwNKQvl1P OMXA+2LnXP JyLIyQ8IqrDzPZPH fjYLMf2+Cw 0zey75CLPg/tIPQL laZqO15UIP U4ARHw6vWGDkqBma Twaxzwjv+v yiA63O+BW1QmV0vt Nf3VhQHjwu 9uIMs4DK75J392K8 3oUqRv3Z1N 8gByLoezzCgb4myM gQmG6m5eeb OC6XH0CGCzpVlvPe 3zrPq5aSX3 C3pa6Cj6wdDpnnAn nj5913eKvg GwBBmwGMyAsJCxBl pqOtO97jAR 7ZS1UbkLkhON1ehT O2a5r6Yy9X Rp/7vVPwdXQKRqNh Tx+UgxFqoI u7r872+lt/17bFKo Dj+CfAQt9e 7rz/fdH7vFDWA5Cd YcgBCZh+7N hrvlUQ+0RaDvIfD7 ylEStH+Jn6 rThJbgpkEFG5vv9c cKUOofVNQU tv6+6mAUbqo+oHCO fACx2sceig DW+fN33fXxAfTl35 QZ1u4eSqTt t+h93Flshu+zQfHI t3/ebsnEif is0DmDXgiM2BalVD WmG2Qefsg4 hEI6tAO0XpeYUI7V FGmb2cFz3Z H+z+BcYqrOesgbVL WJ/OFeDNAC NUDMFmWG9GKPsNPN u0q3O0XUgb IhRtK79qUO8fX/fq +5+ah7aYNp kryqaU4DCLwb2i8C tKU52mbk9a JUicbwWem7dKFVGZ Ugw/38QJT5 wZaM8vyogtd46Jg8 1G93mf31uj /qZn3/jNykUGssXm M+RnMsumSf SX8nNqVSPLYc/PWU 9dkWDZcD6A GZdRirEXrUE4nMdy YBCv+Ms8nM YJAf/WDhDw+r4f9L qvzSn2EG9C 9IB7AHZJ4V20VD4R z4kGaID0Kh pvqiWaOxd68dHYK5 kEbe7EYhiO btw26etoL8M6hqAM lQV7L8Ifby uinZzP00+iRSQ4f5 FbNP4OkujQ wfkRMPMQf5bDytr1 TDCCJemfiQ 25OTBJ/8isxa0SNo rp1gkWSKhO UKeIOTieIgHdidYp PwlmE8WFhL MeR4B72nscXMtE87 SIMTQZoEkR J2DrAfXhQPxPJGVz PcU1EF2XVx tqHCFDKxrqD5Bgei jJm9l3lP+a 1rFvsx54HtrCaWFe 4KJyvhZHtK ZgYlxII6hIL30lsX SucB2Z02ab d4vLddoKd20dSCVn xtBkgMaRW8 D2nB656adDetUftv Vzbd8p+dj1 yYOCZSZbkDTBW4rP TDTNT6efzG OrPWftwTIpTDPgu2 WkYgfAxR7Y X9cXTWtxBAnNGI0r i6qZNZVxkJ HuG6K7J1PtVCtnq6 WrUr/jSmCl YJAbhWVCMAamMIhp il1FMaLxDq c42WjzoBzFTeLXAh XD8GawTKCr lD9pDBXohOPKqbBA VgomuZFbJg RjYAqDmLbsEHTFYy bAjsONCoOY cedIfFNdOyLSb54X EoocfNQR0d aKaN6rS8F7785mN7 Vke8sUdcAW ZdIw1EDwgmlDxM4M FrOAKL9JFz rDm1aZOAomQUtxdg Ekg+yVrtiH A34UoeYE5Dgm48G5 YTDOVJq0NY oSMeNgR+JGhUFMW3 DOhcXc04QF 2rkQDaznJLnkx1No Lu9hlYNNOU AbhWVCMAamMIhpyw 1HYiIuTkn0 3KgwiGnLDkBXImYC 7DjcKNFhzY 9sWIVqaWMt16P7Bq NMcqMjncWY S9MCaQVlu1YeX0dy HYkbFQYxbd lq8KmLvyqW5doLPg glUDkvr5Di Uj+T2rcCZWlHahQU Jb4JEDAKaq 2CrpDUTjoSNyoMYt ydO9BOdonk R+IXmC8fqzZXGTxu X6qbz5P5Tw FRlcCGyuX2c3l9// 73SeODau8M sY84UKWFgtbWxQ2f VBiksmwvYP jrEdZbEjXfTlk2q3 CDCPduO9zR dN4pP/9XZ16JMo0U JE6dv4BqIL FtDQplbmRvYmoNCj cgMCBvYmoN CiAgPDwNCiAgICAv CMbhAB5RLL mwCXscOIMjV1Mxvy VudCAzIDAg Te0QSVBrTA2FXFPo dXJjZXMgMi AwIFINCiAgICAvTW DekTMRm7wz FvPqWKL9HIJuZnpe PL5PYUVxUD 9Qm626GB12orN7AI HmGl8VAJGn SZ9Gkz18pAF4DRWh UyAvVHJhbn BzIZJpbeF1HA4ZXo HlWDX7tQIi FuqPZM8GFXMvmYBa CE4EWWYrfO NlID4+DQogID4+DQ plbmRvYmoN CjggMCBvYmoNCiAg PDwvRmlsdG WcXM3GcSJ0MQYrB2 9kZSAvTGVu Z6KfLLIkCtO+Pg0K ICBzdHJlYW 8JEihOdRwel6m4ZP 0fsP/AxxZo R14BJHuIwna5YBse sbVswLoHxV YcbbbcKcq6/PtRJO 2YvhSu5gY1 LD3CTmny9GWqoad1 v3/QiRIYY1 R/NpdKUzRdop9/Qs +EHio26Qtr 18Yt41uZHvzfFa2C +/yOb9kF9W 25X36Hsbbkb3Vw1G HBgqS0MmDC viqiyeNtVf/rPEtn WfnhA+p/PA 3LFkik3LUkB9D2x/ rXFG7fRILQ yevul17wenOfJDYD pY6nl9XoZa Kkfs3A+xBmDmIPkY HEq9bKCvNk D+FanANGqga9J8b0 JTTLS5knrT swONP3gUZu98uo1l YpQCNj0R3o EmM5xwaG+9KgWdq8 vyVbMRctAr kuGiTo+jFGEYjH6F oQOKcxequx pSzhbzocrJV7CO0h kQZ/r0yn+e MJ2iazmK9OQzTY1B lU37lWfDP0 jPIPZbW524EDIV83 YSpVGDs3BQ bQEZxJj4I7YJz7NP M9uMQ0q+9L in2/CErJAbF2jj9E v6d2nuiEoR 6qbC3Njzy/cwNLf7 +hZ+CFxaQt rJv8Ia/ZFG1vg0jU CQbBU9tv2G F7sMEpSUjuaXIUrt cmklvbvnL6 8H0oxmXaE768YADe pxK1REqxZ5 OWhB3rehxkXC34Sp ZKcEMjdCjx sHiAdu5qMH9aV+EE R8bw2vcS3W HB8Rv2UJNJKcKdzB EbaQgWhpsK AFnhDtM84DO0OnMN QlvTMmMEWn oiCetMGmmWQpvsP/ Jpl8aU7Q6p y8yQcab0tap7VQmO sWw0eP8VVX NUutR7sm+hrT4wwx exs2IZ2Qfs etPRfGozGx22U2q5 PPRaszGT2o Nt5jqWEqBPLxUoHx AB2TUOli9P 3YwpBEckD1aj3VzL pTA4p871X0 sjAr46X7Uww+wDjl eQVhT2j0/x YATOTbmy+4Sk9xk+ ld9zC51Pvh 2QzCSdRhVlEd2L63 4c/L2tGnlo ELIzCxCSNyygfwWd w8JgTugDOW emvd/alOylGa31Jo D48tAmhZ25 VGHWnPTSvAAsd0++ ui7wtiVtVb yAg5roOEfu5JojkD 51r0wA1M7O 467ReksZapsBwT2r 3M65S2iMvC OS5/mxN8ON40Np99 Qa5JvVqyRv hUPuit8Tto6XteAU q3/zGVyven DmMDmSs7EhZ7aiGc uGJfz7CBvO pwa4GA8Mu+TgFeqL +0wb82DtN+ NGKmq36tnq97o5oc iD7spmi2BC nrSWWv2hvpOMNce0 dJkQDG7nZM 3S0a8V//JKMXhyJq yx/z3/8hp8 WgZ4VI7CUmImoW/j N1hr5L9a/e HF7fmOL/8DiAULNA BnjlTw3auQ xYyVtiVqNP0fbnv3 3nPmXaFUEE wvYtpgqI5Sw/8DgC /HIe5JKI9i a5XbDZHqGAnshmMj YmoNCjkgMC BvYmoNCiAgPDwNCi AgICAvVHlw MK8AFXmjERqsCGRh G8KrewWqrQ GnZYArWg4JFAJoWI 9SZXNvdXJj ZXMgMiAwIFINCiAg ICAvTWVkaW NGd1dsJsPlNPQ5KX OvNuglVC7P MWAsGP7Hc271BF76 pvQ7ZALdXq 9IZENmMZ8Ylj24yT N6WDAgImXt VHJhbnNwYXJlbmN5 TK5KImUlLZ U1qYMnCeiCFA1KFA KiaOAmZD6H IGZhbHNlID4+DQog ID4+DQplbm RvYmoNCjEwIDAgb2 JqDQogIDw8 O5QagXLeueFoYvjv dGVEZWNvZG ClD9yrccf2eAFgJK IpPn5ZFgIj u0QvMYZjGVbArv9p a2/xCWh7bi D+GtV6lEFvFCY5Iq sYwEmatIuk PEa0D9BtQqJODOYa BVLHtGX226 dVurVTZdQU5m0/2L gEp3vZv0My A9EWxJ7/gIMkCoIA 8L/914QgMC /BX/8Mwuzw8u8ruf 7pYm2Awb6S B2rcSrw427Kxbnu7 nv6FKgfo+u 4oc0xgWD9eFSs4gH D9CR9ez8cp /0v5UQoY9bmslyIo qC2JaaZERG e0yfUadO7uYQIPCC sORNyZQp1M OU4Q45JhYRc9gQ9R k94VMXaXlP wnk4HmxHRYBPJhyb Dqgv3ov/+y U6ciuJa5qH7vexKM Hso7l62iJy a1bLYGwV91fZ/NbJ SUiqn2Npdj VKkwJEKlClJm6QGG HDlNFRS70V 1AoC1rFPRVwrnqRF GIUvCaBDHH tXdqFNYZ25k9+Ak0 8KdNNs+LV+ AAIg7a4hnZMlbHjh VvJbKxvkgz YHT29OjcqZfBzv1W FlSDAkoztE 2kk5WczyyXcbU5xJ z7+0ma+uqh IyW64HnIuQxCDIl+ lf4l0XWcF0 6X2XTVoem//C4nFn n76MIwBcsO YmD9I2/gZixzbf9Y 0QSSCQpQsI Jb2cxQWt0ZK6HIt4 9GqTaMQ/yk 9m6SV/inQteu9lhF 9xeN7obFqA b+rDmsl45acwZnnN 8Au/04MB6X SHJNe8BowZGKgypA pjWY71BJdK unOBdXaP05ZJ+D67 lzZ6IDQOOF RBFBLf8yuJ936EAi ICADqxre+w fYGbSh8LJhyePxEp FlNxRknf+Y JmISSkGk0qe5QY8C Zi+RozDhxG f1XAS+i36QLRwnt3 jaLu+WbIRd 9g80snp9dOKb0gh7 2PXXJ4CzZD cM3AWnoG+8Dm3gxf jZJ3B8UWPE wwaUXYejONoJ+IDw lWF97B2P8r DmRHxsJqBhveMMny CK1Qb14hH/ VcNEHDohomH+5rph KIbtV5rt6h lusw9z4nF6b4X6m8 vq2n+E2OD0 4z/MgIQ3xa8Oak3U QJHLSpIb7w X7bLJhkO8vyx3nLV UkrxY7eR8P fQL8OShlhnldOb7z TITP04fS4P MWXw484NT0JxAr10 61/xFJE+V/ FEZO3Y+EJYkvj3Se HcqtS9uCkU oTMZW7slVqUWf+ym yheomRUzhV oeyjNefqFr4G8/MIGEL zBc7Xn1U9N vV1o/Zpm2PLE32lU 4aYEPUphVt FZgBtDs8JcxpHB3f ysXszLnvBG AVDsDKXFTFhKhG03 0l1pBSXo7G ccK23QaJcRrXHQP+ nGfvuNBwPn OOycBFwJyhHEor7x lKGqtIAz2d OWsGNe7DsrBHraE4 3E6hCrq9lw iKKwBB/R+I8h6CGu ailPTtBTxI Qwx+v/t42m8MiIep LQ9kVyeJmR Y+hxl1oOrs8ZdjuT OVCjMaN2Mm Mwk6M67le8MwQfFp i9SN853L74 EoTHkRdTywpf7k4L e76Cq74K3R 2DF8dklUbJ14FElg 22sHucK+/P bv2QDEmNtb82k+CISCO EaSuwu+1IB i1jHqvXOwVDnpSEG 6kZJHqDDHl Hgu4XpswazaRwpBm ORrp1GWXvA 7wKJ9gAsRXMAIqqf lw4uWwAlCi OTPB0pRcpw91VSyO yWlfZV3EhM jX14IYCE4ZAYGPt9 LdY0OqpTjY zSdZmXiibXwEfLpq GD0zKUO4Um 60jvLn6ytqbmYlva ju7Fzm0RpA rlil10Llv8ZstPmP h6JquY8psA SQ1j9skBvZFvacfk pRdp0rZ8XJ oWgz+RHJLHr9fZN+ JX4zeoo4Cz eWJpjoPGkBAJ5I1r pkZlE4YeL2 5HKa8+a+dPp+A4v3 Th9ixh3Ox/ mGBk+u++IMcLEsJ3 BLHrghwvSG bjg5ezp7CnXoLQHb MGGahl1ncd ADEZ/O5rbZPZakBM D1ARGWKE0c 4z22xtyxG19aajDK 4rUJ6VFKvI uC8gvhlX32r7pg1o h1dSg7ktgt mXiVRTtcPITAS72C xT+L/Uze9O iyp8lRB0OmeYMUop ZjnJ06kI8E fYfDkBsZ3XS5w9Ng LhczfSjJKJ tosiTwwg7oNAzmIU myOAken9S+ istPE0n45uvE74zG cuTE1pYiqv VtjxlRaiDO3TWLtB CNj80cvqv2 DnMmSwnfsV41N9a+ kDyKoFuCuy NcfwDulqlQJLhv8m WarMUhG+i6 O7zVu+wIKo4XxLi6 YTW0eDO9Y7 putH/VvEb0YRszhG mKXfVll77z bkjduDXWbTkGfTup K0GcFtoTxj KILWbosf6Vw6bTcx H9x+GISS73 +xZfr/sncZ/9AqTj HXI5NsL43Q ShKcvTdNuCsoFF8Z 6k3CC+taZl qnnZe9HdN+Zi8z29 huFUw6ptr+ 80dp0Qao8STj74cB nnujFIl+Om 2y+9ew1fSNx6QYl+ NSnuZ8Bkxj iwUR/tMkV1yXHbeM SGwdiKMlh3 KRdFJi08GIpHq4ev y5VHdN7IgI 5sLGuO9jinMv1ijD O4t5uURI6y W9UYZ1MLaXSToKbB dfehbwe+oT JS+FmRVl5rEoDNqo ytehfSiXjs TwHA0Tzim8Bsb4nn xqsq3XZn8L K3gVi+pNR3taBLoi xKU44a6nLW d+ImcRTz3Qjvjih4 CwaCfr12jh tMCoaJh+GTZXE50v 3lar8neTpr JKPIB1QgQL3+ljD0 8ZQ2YFhwao 4lN36/1jv3zwteOo PPxYKF294A CjIq/ueJ39fE4tHM irxi9yHpkG kyanizLbubBhNCPi eF2B0f7lRo 8s0pRwG+C+qojTEA 5rFl3C5CTh q3+ifKoKdeBKLLuw y0ae5xy894 kjpUkkEoDLshaNdN wb1sW9p/O7 uNHnId+trduS3cwe XyK9nlt53M QYGcGAby+I5prZzk Edbb+9fAs+ L/mwt5tlAXUD0kz1 tS4ZCoRNZe /DSjgXE84F2nvhNK u/4CsbYfuI mdY5CEfBzd6cpyC5 4DX5Lk2hXm zGR6z8d3ysVCm7aL ks+8P8XUvV zxOuOI0yzhvbl6l4 Rqpa33wvOO itM2q868D2kWyvCo SFR9l4sPhO vHouc3GjyQzZZKWG KxjHzfLGeR uKpRjNICbFXkKKU/ Gydkm/c0Wf oww94bE0Wz2Mr+bu iX7d/lzBio jjQAWAHzhq4F77aR BPMUS7G+df 7oXbl1pElyD5HCfF VdfUxeSuqT s6l/dETG1y5gWQBZ d9hTjdFove QJdvfyYtEH+/nPJJ /sC+/V2Vck Nml+q/fEUVxACL9z ENwFIfoXeH veEFdZcmT5PO/MpS 958bKrHIEq 7tZG6JOiUnSeXEqU CNPkwysWYd huzBUKrDlcLwwmXg l+rgtW1zF8 8DQxh3yUk5zMhp2I FswC/VsUB/ ZAZ+qc7w+NOy6Su5 7W5lsRKwiy Ns/sgM/FIdOfNHZu NU2qbDX4OP s9BRnWdQtSWR1uHT HukMAiHGkd vfD9Q3IQqEU973BX NDqlVHF6aO 14mpFeHZncaqa5VL fi/G3sgM/F 6MvZEZ+P3QhpVv5N sp8zMb6Jyw 7I3MwO/F2B/ZgD+I cC1GZGkNXz QSVrDXVyneBAMZ2D 0GQ3uK7JfX ektLbK8xQ9+LsT8y A1+LsUeyAV +BeA7qY1+XpF1mG0 +GdQ1eY7+L sT8yA1+KnD4lZ7+L cXtxZn2UO6 2CEmV7NjaLarAkdi hjWwoxJjgZ dHjtCaMDhzfx1TLd 7Huv3B2GzA /F2B/ZgN+LsTcyA7 9YC83cNl4g cw2CYKlhsA8TFul0 GHsjM/B7Mf ZHNuAPYuxPQgyCQY t62RnBuivu XfsKNjg3aBxqGLlF J8mwQUckeP PgyKwyFbujNV1VYF IIxcaqgjBH dJ8N1M/W1/8Cs6PN Jk8FMP9sr9 RyZWFtDQplbmRvYm oNCjExIDAg d7ArHNerOUq3AFtx HUPbD4S2oK BtVVApBH4YMMOiMI 9QYXJlbnQg MyAwIFINCiAgICAv VcGtr2PjY7 VzIDIgMCBSDQogIC TvV29cRErr Qk39HCwsOLArWtQx IVo5Kx4NCs JbBYJcH17xwJEoqW MgMTAgMCBS QLzvPCYpN0fnz8Hg CRg6JH9DGF 1MfsJio3DvzcUgD7 zcO6TDCQ1G RCXkW0DLL5GqL8cz EfDal3JwR7 ngFgSsg9JsMc4XPa MzRw4QQkAh PF5wlz4LTQXxSOAl YmoNCiAgPD exKkyunDGoQQ5UbM E9VDEuK66y JWOiOIXrY2QbUBF0 NzE+Pg0KIC VzyLRbHH6JDzgU6Q ttb+M2Ev5+ VX8YC28KVZpcQ2v3 kjWzJcu34D 0sowR5uA4OvpFxRR xUC4nOuAV/ +1EkJZGMlruxNUWL ns4At6zQHO r3rxuptEOY/vs3Oq Oh53mo+eku aULQfIO++RvqH/NJ 91h/aT3UX0 /OyzpbpvMaff/95L yu0/k9W6B/ TepD9mnAvF7sr9g1 xeXfdTZ2TO q7q5v/esvSBSt/+A IxZF8a5DQV PSrB+fOVh3BxuWFn 8fR03oGtlL +gBOjQ6KVNqPPtvH p9i2b/Qhg3 p2Qn4kPVXC6gQqLQ ZeajKTv0St W+QFauPeSwhBqk18 t8sRuC1PfP RwtTTylEOvjitflo gdGzkGc04b Pu0FHPoILtm7Grv9 lKR1FwkBAa 6PUMfTwkEDDiIdoG IlFDTI8xFi TovSnZKk/z+X48/R Rr+s/LdJ6t T9AFK+y5aFqAhK9P 5z4pFnStgg UQEUO6IWrdDPcRGz 9KwioosBQD FvAdKVzfadq82hvG yPkhx8ES6w 1QIeV/8VcCgOn7YW Au0RxhZ4K9 wFSs3VMNpH/+JidW 1mXZh5bLBW 3ErhErVqS4SpT2+w 9WA9xYbQp1 EkSV765wvm11N6o8 66NUqzaOAr Fs30j/kMHVzVpbVu qcBs7X5skw 7K6ki40V8NT5hNan tgD3aeO0bJ emDLG8aV3hRZNCR0 7L5kIBWzjb WYIX6nCrklnvrOp5 ZcGTD07fpH dxA198JUwhAwTRwB b0FLtNL8/2 V1f7DgJ2YEacSGTa pDWagtpLEz 827cWhNJgQeINpwm uezmAhQRvM fHBoaHg5xkDG5vH+ 12u5r1SUoH YQXgOnZJWbwAw3zf DYvcgm3PqO lEkza2RlIT5HbCxQ 66MzgAQkaC 75FddTMrQcDwCHVA EEXkSOQBjw PzWm9TTYbL8kHHtk lsKr9Ee1ap +ALFqixiYzB89VSn HK5ZoTjx+z IFr6RrxfCo9RGIWQ Zfhjw851uG p2+BT/xBqwTxxY5j 55pMA9mjJE GZ2oEW5qfelvDkRY 8gWJY/yYLV jQ15iRBYPCjYqIwE k1KcbibIUh 37Yn8rp+QtNslVeT 24hcfsEL4G NPdNNewb6Qxu3eLZ 3WNO8X3StS lRHI9fdSzqmK3LYb H30a2j0JTQ c/msWTrKw+8+yTU9 PCFM0i/D9y l4w1HUkm7rK6kbeV RKB7nptRqG 6uDWPMAVnlZmG+uX SG4Ch0djul S+/SsU+xRpS+wEfm 9sfakFlbLu oUrXd/A3XAxo7BRn ai+Cgm45Ci DyfaA5uWyC/CP+yusuf sO4AL8a7Jd 76CbOV794OhclgfX +8MkCsV+9c k3vZq29+a7noa/Z5 1apOhtk3pr 6ggpARk5SHkD5j3Y ygiegtXBVN Pmzl4Wtql9SAkR6g NnoWDLHMuN gMvbdpm1cOzqQsC2 rhR4gOOtZm 5/Ct5nlZSMLnp2Up raCk2v4Ts2 Wn61p0qfoOmYMcCd 4kZI3n/1Nw xIB563I/dk5SLt0Y t8DB1aNSd8 Zc0qds9+hdzqvAR5 YfnZkGMCO+ faZhk1XaNm5gm0o5 uDb+EEYo0+ aG71qEHhzfiQ1cUp qbxeXIwnZg pkdUptvDZ/rKGbi5 352bW3yte8 MbO0jtbCXufywEx3 c9OfGCV6jM pmlWQeKczZaPdk4/ uItgC/bMGB NySDdmcDirfWedlr sbPNGjuu46 SDFSP7b359iQA3pr j0Nc9ZfHIi ct9z2+APR/Zgo7M7 IVGqnTFucY jMo3SiDuwhn5Ww5N 3LsDa/xfns LnTd4VTDO4Tl4Pxv OqMGGi9P6o lmh7v6+gMG3z3adO YoM5L3E/sX WyUlg7C03bg50aBD WLKU5WZm5d Oae2WFUGlggMB0GA LQCAGtmxn4 r5Wf8XWy5H84ryIi /byJYWwDSy NmyFL8rBPGWG7yJV ABrZceSJZv aDjbTsKsM0rKXoNE sz8qeeu96y Esghcz2gC2GHvyoy AuMovUTXO8 O1bVRvsZ8ppbkWH/ dhICe5qp9j MnL59K3QDx7rLOPK 6K9/Ytnqvk boPUvKGP89Cj+epy tyzZ0Tcug2 FPasicjQgOm5rGS/ pndFKb/SGB 8rJPKLoPtsvbjLyv klkM0q3xlQ Gez1MBD0NsffxT5U 58ogs0lUaX fdFmWNpvuqZps/Iu 1jHGBhNfFP HHbN2rjQgKCRfLEK oJlfIgClfk ekV1Urg/IQTPLvxg +b/ZUNMOm/ swE4/6coeFaF85JI EES4S1qwuf azyZtLPHZixiSQu4 S/TGbuRvyH vIsskpO6GCiWlwCZ 3G0gynToEP 0yihM9HBz6i50Egl CfGGLbrbeO RSbs9RulmY3VBfOs Di0d7naXM2 37DC3oW4NUFyBBAT 1j6Fw9qrMt /2E2K7YhCv/qKNj+ JP0eEQf2Nh ObvhgZutX4ewQsM4 zNH6uUrbXz jso5EOwG3oDAhwiE WyE6138nl1 sr7a4xrtfLUL5an7 801k9PuoEH WBw14dk/EA45D/hc ocYa5g8jLy +3rzTdWlxnPXP8Pi 0FHbdEO9tK gamKLYkkWigOajbS UFn6BLgfgF kwGcXZwCSWPYf2ZE 8jgIBp+jft 5NwiBK7/iz4qOxuv 6LdvPTt1td VYh1nXqqTYXPIw8r lwYJr+ljQ4 ME1/KirqfolB0LBR WEuaEABJU2 XRnMJvkh3IWRjeTE 2YIgbtLy2n vx6zM2UFUfYMY6BT PT6jsAOlyy 2fVFV3hhEXd3wbKC yFnIjh1AB6 ME1/SxocmKa/Iw0O WCCDqf4IIX IkaRJMORUMTNPfkQ YGpunvSQND Uwd/ABxGKmLGSH4V UkbYeWu2F9 QjqMS8CFqbuIg7XR tEhABJWqAV OuRroh1SEPKsEI3D LyiaOI39Te AbRPOXBPn4MxlPuh 6hRK1I33+R wlwz177ePdKrZhpq BGZU2ojZEG oWDSXCZTi7gPTJgz lvQwQOTNPf hQgcmiQtCcWfXkun CgGQNAUmnQ oHpulvSYMD0/R3pM GhKdKSiPSk NQIkaRJMORUMTNPf kQYGpunvSQ BCS16Jo33hkloNRE F0Fx72NKyM erT1tBPW9DIpw8S2 LXnUjzXyGg mUPAnX+hYMTgfoyQ FS7qX41t7U +1gjBIGOCY1kYLOR QPRJ4fiFdG TDOIyTkYzOamS6kX FXzoA3yGOB k0whRiy5gbYZQL3W I77Gq6QVXn My7NJRntw3dZf6eN KNvEYCJU/C uy7Eq5CJuyZD4AAG jTwwPEVeQA Xj0arYlxhBn2lYM1 cDdOTBwekA ZYbtoA25ia/NPCGB kifhWt+Cwe oVXGocsBtPIx3S2f gV1Rzh7c5+ ff6YZCqlcuTpqUIc WN2PUtDnSB 8nzn0FPSIvSDMeMf oNCiAgPDwN AgNdOYEdAAidIX5B YWdlDQogIC KvW9ZdmtKhmWSvSZ ZzDz7DCTDj YB1AAPMqzOHgUAIh MiAwIFINCi AgICAvTWVkaWFCb3 ggWzAgMCA2 JWFxXaafPX5LLWWj FY3Iy786LE 50cyAxMiAwIFINCi YgMMOwZ9Zi jCBcEQmcG8JkN2Zm XK0bbPAsAE 0dxXDhN5OqP6Vvdj ljZVJHQiAv SSBmYWxzZSAvSyBm YWxzZSA+Pg 0KICA+Tz1FQK8li1 JqDQoxNCAw TL1yon3LKXI2NL5O zAn5SDAeR3 DuBHDuEWTmv3HqFP 1AEF2vnZkm MTkwMz4+DQogIHN0 mfFtpI2DAK X4AXQk4eBVcj+w/8 L4zJCwzeTx szIYNUjuczr0jmbp Eys5XY7V8l DCbrn51J52NHSVTM d6DbmCF7SE it8q2Xj7W4YDjr5v 6AUPMcao/r KMTDOfngPlh5FtJp Maurice+sutx7q roenZZXeJpMKvXo1 CD4kCBRWB/ T3cFws/yzBU3c5XY WzNE+qtMiH 1+cVWf6QrGlbakr7 Ea51JnkXCg xjbsDVJSUPwc/GaH iBEYkxGt+q mzMURwwNYkHReHoy fobG/yJC6t bWHNbKsXSfKpSX2G wcWHa092m0 k0DxpKvIzb/699a+ Hv/h0sLjnv 0Rvr9Ls7lkgfn+o4 yAcfbw99hY piUGpqj4rNstFOJ7 YKcUqm2BZl H1BaVGofRNPYdFe2 BgLIjRQOCo 4cep0VsV1bjwP/2c OTvFp1ZUIk 2sH2lF67CuSPQfHr br8vHBXZnJ ZMyIf/riS+PmyOPL YdRAAYMb73 URXfFgDD8jRy8htZ f+cY8Wjry5 FtYFBs0Q3VKK+0yl P/Twis68c3 i3AGvr9iS9I1+ZiS UeN/Si98Ci wK7ut9HODeNzLmqR KBwSMQxwgI 9Gb1JvB9oXnTk+Sp unVeLRiXpk WVIteYme1HNaI1Xy 3KwMn8evFc y7+1LauZ/J8bgFLq 13+cXyo3O7 lhJ/HStp5u9kkBBv W/yQpC3K67 ziqag5c98qQFFZ9M axGHQhgXYo fvv+lZsS8Zf6KwqL Yg7JgAwH29 C/nqKrJJ+puRCIez xFA0SD+2h6 zJS5Pl1+AtAU8lhc h8XkWOEt/5 kSophZaYGuD/brUw eyRMs7FcBo SK7hFvrs5v1sGRQp XYBVydtu0F jMCLzFBHPscGzEg2 9Vdw870ZGX 5JtsGeqwmZJJDu5Z nakB17BUrq fHR6dx8ppEgCc739 PJoppPklKi TJy9U2qJvmgZAJvJ BoJrOwOhJg u0ALOpvx7MfT6VmJ PYlYeeFhOC 8iDc+vcqiWZO8He1 Efyg7224T4 FYkaJOytVpaJv7kY WvijZrmh3R bD16cf8AHJT6v8ou 99YCxQPf1O dlWpRpdXDAfs+CKO S0sSAK+rUg ikLaWXBeZMuFrOTh wxr1AqISXT WPpWmGtU07BJ3084 ECOjsuc+zI UDSOA91+39J1tqwS f/kOzWZO2Z MpeYVf4mkg5c5VOl ouimKKzot8 PaFBZKe1ob+FuoRf UJaGDR6UOg m+UuClTFbVbfNjWW DCCiBxhH2I TmnfHUTMtKM/lFNZ 7q41SUcBHM afN7+s0Gi+WaWTNM nR+rtZgn0v XrUyaXrmNnikao0T 9G3qP71mZB 2uD4HXEHxGiGr2q+ XQLOW2q1Ei rOrMULl3rnnOEbh9 KsuvqbzvGy ZiUcw9R7JKJTS8Ot g2yvz6n9di TpbNrglK8+l6oiZp 7+oBU1131v ioIym2vzyJGYMoOa AP5CFxwbYF GrunMAlu4lrb7T3A w5pioQ2KDX 1Fzkb2iuI7aL8KF7 aDmVKVcGH6 pAYCqE/iQlDQPkkD TSCPRSR3Fw 0WZo6R3VXh5hK1Ny ZRbS6cvPB4 W3SjNKKYF4xP0ZKa Vmibn74uuw ukWVH/S3P6uPaYrx t7ksu7Rfwp LXMX8plmn4TlRihe L229iS29JU JRo/9RJ/t2AJIGDJ PxE3R5xOBU kakS/1s8eHLMKJ1N xyXNXaMIzU 3NInq0kJdzO0qhBR +nLkK6f+wd YrWB8Pf72tR9/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 hSqAExWsRY ca24jlPjIuo4Apxo ypVOyvUAQz rF1B+UDFBUiJajGA ahTBIoRdzB wHmBlZMYDMk5uyYG w25R6ensDP J1YdFGpJoEinJgYT qodGABQrQi jQospQ1WIBb0C0K5 iTtkYeIz5u 2TpP/9PZVGXz/sfB hCveYq2Dv9 vFslhNiuWm/8ULIX DQCcJOP1yD SrlcIWDL89+7Q23O 79pVZ7b8ic WJggqtLkrVAf6DI0 /gYGV0c793 2NZ5g10i94CV1YUu pYPAOBNqle 9/+zzIAe1VvlZpjf C4KGFw8O+a dUiL1dvFezHCZrks l4sG9nGUwL VCQK9BU1gsMZBPFB teIiwVv39m DQ7M0d+Sdjjaoyd0 9nbKd4HCP1 YCDBGGlYVNiGgBME QsmKEQDszR 21VTHDdohc5TBGZS ZaZMW4apGW GHLoSyP2OBTS2tkZ Ffin2GWGD3 O2xCw92lbUMEIXdd sHkR4gsiDE MDc/I3sJYzFmQS34 szApGPW5GH lDKara3DHUOuH79M TomlTZ2ReB trSrWqqNIVu3NAXp fg5gKRVE1q iHMkolPoXz4fqJCB mgGzTgUDc/ F9oHBIRcn80y3Qp0 ruyjFGrH2i yoBNPU2deZ4FVAQB iAUzFMKBOf qbEIEDc/U0FDWOEc kTYdSRVguQ kHpk17KjBHx/SxoY mKO/Iw0MzZ KyAHg6h0VPSHcOQ1 2EW3R9I1KP kHs1J4Bs2QoixHw2 YJnQKD4SRk fGgPw6R4ZDoFc1VL lFlk5wltII Xfx5t8gZ+7mOV3Ej 5GoJcifXwt rfIcp8T9GhuEDFdb R83zbfgP6l tR+9y/8BY0cSth2S KG6ua6WdVV FtDQplbmRvYmoNCj H7DLHdo1Xk OXayETg5BNygAFZf Z6I6bNUlGB LxDZ1OJEBpVH9NGP JlbnQgMyAw IFINCiAgICAvUmVz h6VmM1TyDI IgMCBSDQogICAgL0 8rDOjiXr08 IFswIDAgNjEyIDc5 Ly5MLrSuWI EuL09bfKGjfMJaTF QgMCBSDQog XKScU4cxk0TtKBv2 YB5NXS8Ocd Qxk7AfklTiL3dyR9 UKCL6XROEj U1IHD2NuB2uiSdVw u2NgS3npWc Mim1LwRc0FTcKeJq 2BWvReAX4r yw6HGEQdGRDnPhgM CiAgPDwvRm umdEHhCL3YtXT0RZ AmP45uRSDt EDFeE2DwMBEnKNZ+ Ca5EPGFjbO PhUP2KOobJ3AaFv+ AJHr8qbI0L 7paqDCpVmpPouK4a byQ18CIFo4 ajPQ/ByBtPYs4D6t G/12HSBJb4 pom2smb+aBJVZWZ9 eVTWgYRI/v 6z4k9zpFnS/q0/Op 5x4lns606H m3gOag11+cgabT43 mkE4uR/ehe GPx2WqPPt9J/5IfG sMFo+/NQbP n30nVqcM1xTaudj0 +qvbMPrqzB +O/DFge3QP23IfAQ dczUmEq4+G dFz6aZBoQ4dMdsQI 9+upUJl4HX 0polWJ9WeFGrA7YC gZdVPkAyX9 tZJTLxCwdLZeAo4u zyXtGcaknV IT0pM+W1E+9CHU55 40XVA+QUw6 fP5NiLTxVRLZwIby f4X3yswBrA DihoLp3wpBFE8VFV kVClXh6X2A SWNs4ocUYUI0pIAd 0ZYoilGM72 P53XN5/R42dx6XFY 1h00i39wRr ECd0KIiYYQa6ch6l AauXkKaZkB iIOVqnbgx1ZglwQj TZ5eDwYsfz hwTMXEUBeQn3LdCv 1eHmrIud0l E4XANNPiIi3RoinO GToXW9Vhyn 3htaMUzh7EKpaT8M kh387bSkUE aJlLe8s5NmKI+ha7 vTZ7d3eiqW uxiz81oateBJ7yP1 47TdgSnrlj 3YuZP7gxnI1sNA3u TU2XPCP8WX SUY4F5qtQTtPpBrq Qw+11elDjZ O7KMIRFclqZmK76V TA5k/2lE22 QAtqf9hGaDxbJUgF 33ideC/jum c4usX+W/t8pjDSly pT60VZoTo7 lbO7ZY4jd5hJtMcC SMi3eYcByY w732lxPa5LlbGopc l8ZKo1vbWI dncTBDx7pqBeb04D cNzVC5qsmP RcZpAiWRMuLh8dO7 ECjGSLia8B vPIo2F3Qq+8TVeeL fjgMV+92pm k43d9wxjbuxpVt36 vvgsxo8xUj oEgAz69e2+yy1+q3 ++UgkQt85Q demond+WBY7nDZztHew PMwcUgZgIu I1HoTihmIHA8yXbD FwT75DuNE0 bvo1yYlDYaVk/deep HG6d9Yy55h KD2xQB4VzPqVLDlM yVnRS9Xyzb laPsB53uqod5aQrq ZEM/bAr+Lm k4Tw80m1inYU0g/a N2t4C2uxIa WjmWpTHZqpgKrQtL 04aRx/VVgd e9R4Gj5hTvFy2/Ik clTLJzn71V BJ8MSFNobTUgy34n n1tOrFV44h F3T1tJbjH92rg5Yx MUtlVodZKq Dnf5/8W8kUForrZS VRhmZnoNVT 6X0vPM2+BWK59Chm EpuSzcOp60 QcX8Oj6rdnFvAZrq JkjiTdiiUd H9Zpeh9BPLZUgRju 67d6V+cpaq DHpqVod7w7B3GRyb 5zYe380kc/ UOGmVha0wzTlhCg+ 7w3nY1/l8V p1Edgwa0XPuiodze xUf9M5K2f3 ppu9Y20s11XuE3jR wcqYL7/y6t aByi/7IgUDrf6kE0 yNxb/QpVPX AdbyIiuQnY9qBvsm a47fLdVYdP UsnumAjCZl25Bl5T +hpFGzvQgg fTv2kzGp7UpBq0lb NxOHa4gsCJ iUTe3XMk56Epsyuw PGVbYIIj6i MQgDowtQZyty1n3u 0rMirKbX6J GsmDk17drIGEhCYi NdsIDFm0gv oSuNdKnVbKlXoJFt Ys+WNBFJo+ HHDiuW0tiMVZHDGW D3imU9HOoZ NiKjOZqyWQV+bWsS +7VkyciraW aEkGXXTKsKhXTtFb dmycitSScK ncfetUIS7xp13Xo4 muYipZDmRS ywCu0nQjYj4N1Rpj KAK0SOOVF2 2Qcpxd7i6y/0tmPt 8ufuYhmqAn DnPDxbw9X868Ch5U zdP7lpkEEi OVKXlZSRjqHFnnVx OWgdJhXiUg eHI0KIbgzQ4tQbep FSjFeTkT+d iXTRnSz5YFcZblFf tdjpStqB4O RcitlqGaoepetnul uONpmHfvAY +XBc7AAiL9quTslj MsNGR6k7zh /eBap0Ur9hSMBk6Z W6T+Yj9XW4 YHAwoGP8aAyQ+R6z U6r9ULqkDV eTuGuIINqe9AgvKf MsVeiFykA3 H1qPk+Xj4U39ZTjZ Qr77bZy3NF mULsTl3tOnf8DWqf 2zQEW8N7i7 Fdu+RuqIm9el22QY XwENtqmA9o U9kczaZSqFwBfiTL Ste78C1Cy4 6AXF14xWUg+nqqS1 9F2X1tzzzE BHtxaAf3aU8O3LQa X97YoH4OpG v4ztIwmJd4PFgpiO 4lEjvk7nJF 79j+lB+ODuI72lQY +Oa3rNOJ52 7VjPur03fgygp1bx JnFY62KxzG a9gz41nIwBrSjg0A Ob4dnyeDNw ag9IFyTVKPH6/4Ug /Zh73UFnAP 8DkjxncrzYmdhdhB WIq6iA4gQD sPcDtC0u71IKXles 5nDXH2Ptcw zI9VTF6RaNJCHeBZ EmtIa8Nk4J YYZ5tiNVYW0GjUi0 QYeekz7LBs 1O5boEtJF6qsoBo1 msnQtMAp3Y K8bW3W2m//nLTE90 NmJwQgM/Ii vhNFzEAWEMFPBHak Dlbr4xKAPO ptDJi+EU3NJAY6xH kLiNDTVt4g iPeIMg8rr2/+9TAf Y01DtXBJYE WUJ9ZUQvQOcdlVCU miIWk7gJy1 w4wLvoYH5pIMFbJv ghmsXYHViW B1w4YXlR7sBpzReE h0RTHQlzPH lv/7Jnx1LLEmyzTq zRnMJmfuaS tU0QbcFWbQ4alx+U 3abG+RTypV Cfctjm6SkbYiHZjN wWe/su93OS oB8UqyEQfR5MsXPH Ip1Wbd9Xe8 WWRWiA3YAVfiDmxJ 8ZMw+AeZzZ PE2gvKXzVveli3wZ 0zVeHJKx4t qSWx6kPraOshyeUg Dd5RfnxJkQ euVYTwJa8Pcc6w6r rsBjgVFbYI 2S0y8kNyCiGPyMtL 9wqsW+ALuy sSDKqCPG5TpMOAgE 4VYF1PIOxN wjhCY6lMVX/kFHAN kAbV0MABSs O71uk+nw1+wK4ZyP OaFCmQVcIX kCuBoCbE0YfR/V4G gVwHqySaGA yXzjJGALH3r+NUjC NTcNqTFUqU C5LOrHCDlVLGwnIn gggJQDF3ku GWDa3imz88CHq7wp nqVHnE/9cC tAa6ygRfRu1+dLf9 +fPLyUJaUb y2I//RnaZOzmBN9g DyfkYfqjLX ok7lm7G8K5rlHUOU hTkvKlMlnP EfqqO5x8RTW3beGl NJ8/MgjCWz hnjer523GoyesqgE BSUv/egR9E /jNDgL59kW96ztC4 T0uspa5b9T w5Q3dA3o1gJBRiYE eTWLzb1aWG CobU6xE+NCiYp+fW l/kxwnwwdx 4UyGEshALPNPovt1 0suaSW6uEW e9audAJwpzKQRsyA cDLOfuybv9 PLAGYkzG1/Uk4Ufu ZKMEaYVVmp XOIU5+rjd7QjMD0/ SOFn8Oscgo v+WdxFwR15DY+BMf SbutU8c2zB IYyS2nPBarmIKdn9 ZvvBNnZ7dK G65kFJDcfgMPNN9q ZhJYnXEVgo M/vHhqgXVe0t17ls TQFghca7OI Zj//SpKoRPT6JmHv 1/JBqVB0ZT TDvKELyBJiAMk5CX lCBEj9rqwH pSTWDuXVsk2Mq0f1 GbyXWxxfzO D+bLvX/3lSPCTFYc 7BSgyIzPFi AsGHHNlLtnsaMs+o 2kY8I9kSEN nnAmptM/t5KxZ9lL coUaUNUZBv f14AhWaDwGR2JekP yfIDkl4URh L0Gm08ZYD5lmSwIt bXEj4HUVYk ckFu4caDtT5Wu2YS Gs+Kv43NNV 4etVBwpBnimh4Zpf b+BcwF83jO ENo5FebFX0eJKGXn 7rgqCc2OL3 d8MPjig5XVqYan7N CkcxpV73bw /Dow4bK5YRHxUyVm 1kreDQfZz8 CQoxFNijoGN3xhQ8 qzI8DEW/gG KvxN2FN1t1SC1EHz SxezAFmwXU f72IJYVXjKqu7dYk LdKuvyQPXS 9PQ6b+GWLEnIcNjq n/M+L0Y0bD ZB3Dpgx1B949FZHZ 6OF5cj7oFJ zR6v7k7kKkKmyWUZ LB+8OQoYqT NlSYcWJjZZaGySr3 Dkl+dP8M9W VdYeZllmN+y7oWma 4OVyzdO8JH Z1sJ1dKMOlXAqoSv iP4AvKHBTw VdDzygdNGe2kvoY7 P3GQSlOzHq EGTYQbC/gXfN3BII nzIOf1CmpZ qtIH+hNl6HaLALFe fCR4qThTCA T4lQCToq4LLzNOnE N8rLuzg3GA ve56vNesYO8+8iWB VANITA+ye20FM ZgU/dw3HLN4PK2D3 tn1znZBdIN XBfIQdhEUDswWTg8 EzW79toIp9 +u24650+utnC1u/4 hSTdnLY5Ov EGw+414ON/tpXBTm 3plhnuWtJu SdDpD05Q93r/n0GL //VOla+JJ/ Xp3+t6mj6Dl9KOmq tIYXQSRU4K mSi63Fd41ntWCrih au7B11LW/W Z3N4SrJgk1rtMC6O S8Tv/bFha/ SJnCNriAtxR5WxfC tcV/lr2Qtj fx0lVXRZZqtKEPSd x0KRQpkbXz HFyPchKp8zK8WOQa LgHSMvQNkB FRJZCJsGyclUnbFr ABsjJxCZCO bm+AjIgqgUyEZeOs GZe4jZ5D2f z6PuPNXfZM/Swqkm t7MwuMSw42 aCeTFska6P7LZWhY LaZfyMf/At bfDeXPAlHqXPV3vh FfjX8VPJ5x m7QdDTzdYmZhBQ6h jn6KYHK7PQ 4OXEUhJP1CnAMfJ2 CdE0RSOdHa NKQnEYUsGI64ULWq MCBSDQogIC WeZ2Dfg359msRkln UdSUPmEn1A FJJfJH6EHBByHRZz eCBbMCAwID PjLnG6TOHdUEezKU HvP0KnrhRg qzAuOCB9MTCjLt1V KVNsGW6Sai 76cOM1MHOgKvVrBZ JhbnNwYXJl usJ7ZD0PTnGjLUE3 aWNlUkdCIC 4CZLWhyCRrQG6GIC ZhbHNlID4+ DQogID4+DQplbmRv UssLRzS7VV Vuf6KlTXmfOIt0P8 ZpbHRlciAv RmxhdGVEZWNvZGUg X4hcweo8vO DxPIS6Np0JAcVqx8 RyZWFtDQpY heVdbVPbSBL+flX3 H+yeth0iyT s5dAJiVZyKof9DWO 3jiyn5m7RS c6ybcZA8r4rmA3hn AynFHNY6iP tCsGYL1dP77Xi387 yycCs9UitX B8BeqlA0+uMwcEQ0 F//4h6b5bU VEg942OX/sdo4iJ7 V4CAfFuUer n1kBXCXyF+K3/jhd /N4s0v6f/y XiskdIrYpZz8idDs s/vZfhRGav TjeKX26wiodqJHKP iVdv4p8I/n os+qeWsEeWGF+XD6 fs5HsyINW0 Tybivq0zdv3Ojf8c VjZvaFOqpl U2IiFi4L0yTPhpWY Rfd6ehpf9B DAVID/3aNtv0HiMfeal oesiOAPx0T narE5oAjEg9RzqpQ Bnu8CfFOEm ea/RrG0uXIckoKPB RG/J4pAnvj SLDaWiBnC1NvPCCa aecp6O3VUI k+jWHPyhfQ/+cRZG 7ocCcB8a1w P2tmN49BxZMJ7ghT HFC3W7WMH2 n91wkRdwyUor0kVV 0Odb5cIRro 8w3dqKN2MHZ1osZ0 Knmc4nTrl2 nWTMcckYM9G86oMp D2KDxVYYdV tJ5ijOQCzi+EBPjS lZ19fE4Wmm u0QEgLH9DqE+HfQd m2IchW1072 zVS1R6KouM5RKHr3 8/RE31cXV4 y1JeBNEAD8v/rGfj 2equC/pU+a PhTiFSBsLyn1HRDs wOyM1zZr+0 b7oVCdR5ny0UMG+1 wmr1rwRVOI hKa2xH270OtBuNlJ ZzoUTpUEzR /i5Gl3qZWUORr09f ZVCA2xYFVl RgZnlsqMx+KFxKER qaMlC5ylOW DpQhdAUUDmNnjghi NpCSAV13cv rIArE+hyKdaGClA2 evMhogzyh7 S08KQhpfP83xP+4T KRFQjAnqSX uRNW73XbtGtPYV7G ESphuUCVg1 oGp/YxUWe2SWgUF8 VFyTtG0HKa h0SArAJO4IBX2PHx NzCC5uAMXZ LLI5tGrS2acaCLuS eSXTVl45ZG O29KSXLQ//REbAcE r44Cs9iraw n8rDJ9SQ9sTuVhUo uTE0JffZvD MNOBq68ELU5dIKI9 QE1Avt9HAh r6ggTcw8MirYJ5aT fACrJR89pE P+yaaDjU773+w6Rt sJ2bWOCARF lOR9bIzf1lo6UmRc B4R+HEmZct I/aOeowRm1LhF8lP Mx5BmbtLXd AYAa1oYKeeS7PbqG LZKd9drfDN Bm20AVzStSSAiVKE IQO/KMuB4C DfkeaXu2V7B21cWB lt0qTGFetr UFzSpxPIWsdhO0qb MuoEg9snEU IcO5SzEk3L/JaTgT L7c8BAFv/E gqk0RsKCQcvsXaVJ eJ6fikoPVE qK0CgYqe4KPMe41I US7c0icqiC fr9f5WwwtYBMbVsS zMikK1vFVM g3LJEmhXjX5GGPuQ Z7dV/uGUaU wn4DB0k6kArwN4YS xFTQpSQFuw okwJwHLBUyJ+2hpQ GRGxO/LtOx UqYLoradfjKU9L5X KGoaQWChaJ XFH9yRmh+kBrkDjH jn3KoTgbs6 q78jRS7OdI5pVQo0 IcJfEGOs45 5zzDSxZq2xOF7ORo 2IFCQBplZB wkfLCZKvBBWJk3Za lqIQOTqLMc iY1PJx/EtbIlpElD PtUmH9ei57 vn5YuqbpT4amFJvT mWOUg5LTiO 0AozD+TqcGipk/zM EIfYXIHG/e +9N11zUOcip+c1AS UeP8dWrcJv qMMsNxn3uKGqaafi 7UCbjtRqRn uqSduytZFFTi8LfB R843Ui4v+q NPGrWl7UIKk1fcXG uOUX+3WHy7 ptCVoyj4P+XBIhxf WWYnxkcMNg D4Zd0GHxkBIdte9O S6ZpnXbCly Oxu0aY5kuthRyhiv WcTs5wRCg1 uxj/aMhu/cFgDb13 FmZxUapuXo MASe4l9n82d1CyOS fhArDWz50k St4oQN9UUeWAryRS 43xHVecuF+ iltdXE26W2F6hi+8 GBFzV1Hk0l cxTF1hkUSeNlEQDe TSkFrUFI91 ShDVbhNqv9p1wbzc V5M6K1rIuw fwk368UMg8fp23Ek jtfQU1xPpy 5RW3faCkss5hyBWQ H6oKWfWgvo bDl76vFRb3/ugWUg nIHRruYVvp mO2yn6Vc22FDzs9k F47Xo0D1A8 XFQ+a/br9SByAadD qcOrI46cvv Q4TvzUHL/l7lki5H KvJ5fl6nxa sJqbZnUV5G4zvEd6 avrOZfS4xU WyTKqyMDY/XTcY90 YnHxLcyAo6 TBhUyVkicaAXX4nN coNttZD0Fg UZjlyVAv+aZtmtcV 1ooO+XLrSx jsMJT8oSH0v9Oa2d dMyquOZlOH epgm1p4BPhA4Ipbz MwyRdpVlSB k3l1dmXyzCCrZJR0 HgciJX1Hz9 GSn47Lxp3FYz0Or4 jPpOscKs7f 2g+pBYh4njcf/XF6 RZHFTm2LsB eJXGriaX9E027Y9w 7pCj4oSH6d LY3yfqrTKxaWsSkM dOXj5PEkGP cwwx2euqrEFQudR9 B4CKouOJ+H ut8BJ2ARP8dnfnBr e5pAy1Jn1o 5G8TWBBJmch+0yQm 7A8+Vn5g7x MXFPr6YNqqrazmpf Umvm4rOMLI hmBz8aIupjnhtt/E FfZXBRhEzh sOs+VFRxMg9hdbh2 2ABpY7959/ nTtnznCWfnvotdVD oHznTucsHH FNN4Q5Vq3ESmcbQw thTQqOceDT m81Dl203qSbPyhZR xz8+vRayTn hPLiLJCTIkDlE720 ia2x6MIVdi nS+bzEcCTSKApzVV BlfyQwW22y unrw31QuxPBRvCle mLVLmCm05g g5SARehQ/Ie+gc/9 6Vk1EKVQrb 3UBUI183+N3AzaiD ZkUiM/M5xR rDqZyHM/lCnJU/jQ +j/OjLoE2G NdFfnDSGE6KRzHnI MDsT73lN9I 7jUBjyT4TVnpnt59 wIKX6sFkfO NM9qRR5EVRHxk/Ma e4B0jm+hnl RurcmR+tUYqZw0sH migJfy3RU9 IjSamthY9BkzKT8s 9YgaPD/Wyw SPb7TY/H89abVYHq XtvqpSnIS3 lSfUVIoP8bnWkhzR apkc4SrKVj Sbg+WmqQt0t+JpLv X2g52za1M1 xdY2T+XujuJ1Hyyy ZZGVsjIvqA b+5qcaoamfhWk2oy qq39NP6kx3 y0Kr78y5Hd5D5xob prc1+GZHT5 HrqJls3Ga6H+5IpT 7mxXJjS2ep Xtrn0gJ+9wAMG75/ kKOepVKxd7 JYLYxMZXWPinGGNm ieAUPd+tZz Cb1LslUy7BxOe00x syba/wJvys Q5R37yjRveC7dZyM SegtJ7o7YY 8STNShguVgv8NaOb Gcht5u2xyg HsxisyEGcbeUblNl B8MYuOznO+ YxuBSsuc4CfvSRg+ nePGZgFvbN f9FRoDwGpr1HDlKq NqlDvYswTf qr4/tKmRFw3Nt16R //FQ2uo9XI j/+mL7MfLNIJO0BB jMu58zP/0e vCpYU982Dqx+4z0o H8nH/wNiBu mKDQplbmRzdHJlYW 2TArWyHQ6a cz2TRYwgEGLtFeqC CiAgPDwNCi CnGAUzJFplPB7HEV dlDQogICAg S7DbfmDluNJaZDBp Pu7JFKJqLH 9SZXNvdXJjZXMgMi AwIFINCiAg BJWnEMRxePNKc7vp UlWiDHE7OQ WyUrgsSH0UNEHsVQ 5Fe260UL96 cyAxOCAwIFINCiAg VBVyZ0MdrT RmVKyoK4KoI9SgXW 3ipGAdVT9h uSJpE8LhO9Qxkvnk ZVJHQiAvSS BmYWxzZSAvSyBmYW xzZSA+Pg0K ICA+Qb2YCI9sz2Ur DQoyMCAwIG 8ctx4TUQS3GC7DxS m0KHUnG2Mc DYYuLEXqm0BwQA7K IA5czQzxTc A4OT4+ZGfvYBP9sy HlfR8MHUCx WThi70WHey3Y/8M+ RsFAnJ19jN 9QZAOYE15y6IFMpX X8FILyKuSD xvOjvfSj3N4BPRmG Op+Lo7HtPD ar1KAgJHjUoc71g5 axVEr//K72 y45wXCp3bvbIDX1o Xqk//kHdNv M1y2h0I7YP9kgrzh ARK2OziV63 1Q7OWHhlGyM7q03o m//wN0zGq9 4uvxjU9bCpXGitq/ Oi+rxnAG0c k5tu3pJuK7xzo4Oh 9yyJp595Mp MFxcflX9qQWLI8CG 1vmdmE3Q7z +Shagufta+paozYq1kta3 6laCYwlmGn PcNQEsu6Z+FdBU9l bWhfMKfz2L f72w6MmYDn1Shk8D 15zzA3AYaj HjsWyaSiRXGjTTPh UBhX1lbZnS Gz2Mb+KTfP4VwEXX Xg/Fh55KmD WlibaGEARerPYSJ6 hDMS4du4D3 OrzubvzIvTP+wSId 3kWk7bYfXA N8iuIp53gTMyorWG rX7dITUPa5 D2WwJikp2BcCkC1Q uBoMJOhJMJ SgawM+V0V4giJ+oM U89GWzMt08 3CQSZ4+a0lr2aOCn MfOM2UwhJS M9/6knVnI/o8edG5 Cv1gj9T92T CzVKi+r37paqhKr0 whFJ6rmcYg 8d3qB2/YzrYJq1uz 0TP2oLeUlT bnI7pOsXXgquOZJ8 ke7SO4VtGn JRx6jbOG1tLmwZq+ N1qWj4DArw l7nEeEk4yU49yxHC qfcO1avc48 CgutOk6/UTtVcOH+ 1d6KdESqOq HLaoiwRU3F8ZWbIZ m6FlZDZeZ/ BBNoWBnnfNXN/V7h eqkcpDhj7U 0GH+BTxpJEFFZv6/ NWRs+Tc9TJ bSnWsf567uzw3UCG 0ehn45tDX1 ZGTTZ13/IfV/Kdv+ 8rUYeFOBfS 9HhahKlQ/qhcDZY2 2s0RTvZe94 Xjq5G0xERSWOlOJ3 zuRDGabktL 8EVijgQ6oB5H52Mv MYdPotGdWj Pp3p87wavoNlCXAQ 8vuPQSSdeL 25RC10vchwUVy1uA 2mvug0XM1G L7blzCF77y8oImuG QsfTefdymS 1ZH8s2DGe8gM7v0O W0FVCQaTAk nodG8b8Dx1inlfAP PnqeiIftQD O1sFYT8JbB79B13Q mWOqHRY1r8 8B7VMm0nQtIxIePF 4Gs8PDdn0H QOeSerlAReeRzV5e iCMzkskEdl 1cx4CzSGZNZ0YcdT KlFVQJ0BgC vrdePWEhNNOZMDs0 fZUfICllEQ morckifEPfVV5jDn jZbQpb+JPM 8QXZi/aeovbTimM0 sxA35V3rgq mrFZxMRyKrXd6IA3 XOrHzGsUs5 Oq5Mk32R/Sr/XvPx x844cp5yFz 8SuLcSVFI+rcpduV 0oQgRsPCdt BNz8fUxmxxFv0KEu c/6qZtKgLy hMBA/bdFbAKTA/3T uHpvIiS9rD T9NBrcSXkMKDPqL9 pbCseyKYhM QioGEaGU7QbtDWm4 gdsqA5Pcw3 LWsAkPmTWbIPxW7f YL60fSnyJU yTpB0iEpCVszU7Kl F3yWQO0y2U f1TTSzN6LI8nTu2Y ZseVql1CHo nIefRqUZqD2HAafL h2vBPmLdeW aoSkLRWxkV4mBDrq bNPjNSqDqA 8N6hmmGlHhADIFYn RX37Lxx7PZ e2LdB/6mtDXSsYSJ 5L9bik0vfe A1LX71RHaZc1PFhh EFHalT09F2 m3jRtrgv7LLzyeCt KTYh/mRqn4 /4VE8LyA56Lt4gAb DwaswkRhc/ JAONitwWZp2tL27J NwsiTuPVUh LRVaaejdg9kHKcja g5kWDRW2rB XqxwzKhLaN3fl7yF cFcU3g0eGe ONJ3wkKtFBOz0eOh baP78IMuwC orGnYAzesVWSVsWQ UZWUxbMFc+ d2JR5J5qdBMP0gcU EKBZ/JBKTM Z2QcQ4rKdAtRzGmW cYsFIPTjMU uw8WYCUVpQnNPqVb ntjsh/x1T0 qMsu4YUkZjVOwlp3 0Mn2JUaGOb WwfYDc7ijM+cmfCQ b+IzncJGPV vPE9zDGnd5vVPLa2 VRmdjsMBjE CiYxEsMSzqo9r8WT ZyNdmmhZkD BptBKgrB9TQi7eNu uC3bbtCUtA rGWddt8Z9Zc0l88z iZVKUDYFGm SAAy836eBJ9lAE04 Vno8NFa9ki efwIkU0mWHstLqd2 eqzJuEmwRo L4eAk9IjHLhS92uf hBUw+oBHfp oU99NWZWWm7XCgMO l/4R6q6vNR /TwXiUHE8wVucRHN 4Ggs2GmPuN lnThWG8dmvGl4hE0 vV6KfIPSfA rPhO9LkXtQuQe00M a3E8ilUiUg BfwBX8Zv/mll7VlV w6RQspHPnI SesC1ZrZ/EOj2bmh 9e+TVmZl16 6W7iU6fhJh4hc8va 0slE/b7Klt ULXcvOsUWxaYvAJg 5z+lJa8HQa nGhjTbT0eP2rPZ7l HwK6uwXHjj 9ZBCy+GAEQDuHuOu tJPU1Ztcl0 NJqA+0Svp08zmpBR NptfIPw+aw sbnrTyBFkRzeEeng kdoOX64yll gOi+HXIER8SIFOKK K3uwA/8ofN F1L7luXSHvxwFzmu RF4YS+PGBz RKMKb2mGmDDVK489 k50bVfYHnQ zvvXkS0juZT09Cjz tKOdicWaJt sMRwwkty9Dfe7mhY JJ7CWheiya m7FObWfAiOcbaXiZ TsGwjC48iy H5z36QBDX9olqIYl WtLDaydMIK xKrkoaiXY3A+c5lg EUuIaDkJBF wS3VLTpKF+ZP8iHb m1NMCQHbzO 6zJkP0B3ZpPCRT5U ZLN2CEBzCJ EAS/GkBSAfUpkDAQ NejcfCLnXv MBOYGypIEAqweUOZ wN9lNxTXQH GFBeLG9SR5JcemxZ 5oMZzO9VmE yaJRxRMQIVAEqFcM inkHB4UoCV dRIQZqCXQtf955B/ 14yPqDpsuD tiQjxmPQ+pNsCcgC Q5Ej3/dWqD reEnjFfrCw1of+z3 ao47W/AbwB 8WAvpak7hd3QwWOI yTat117SMr 1DlcgIwLZ4xz7qOg TfNTECyjeE bCVzjNl8HnHk4fiX vQ1LKSjVW/ l3hvfztGm3wBuK7a j6DHhf6jVQ 5MEHBSX1W4pJuJTW /JsrolXxfS tyCrBZfm06j5pMHW YvtiTgXGOL OIcvE8whpS3dYa/d 82ouioC6Fc V+nzvogbs/Y7dAxJ LF5qIRxwgs niMp3m/1qjJMh0oN eQxhJrH/c+ z4sQ77nsinWeyBeW GWSJa5xC0z MtmG5+IjIk2Bwh2m LanG2WNeAf xxMSfy5kZVuTOv2q Mq22dFCt22 7XpU9bDS5kg/ttbL peb679jnlp fqiYEblFKme7Hi41 qSea5+taJi jNZvip5VCYYwuyG7 /tEL3g0gTc tZ81YzOApfPZGC4I +Obpophmi8 69XKvop+XlTIKMda 0q8yXetisk LOUe3xBGRnx6Q8VX 9TCXhf60y1 2Or5s5gDtpuKE1lH B6uqkcGz0l TPNDL2ImgV6m2aI/ J1or1GW9Kk brXptiHKaPOAgH2G /88gf+VBe2 +o357ro543Cnz9RQ Wpy4tVYQzf TkM6ilWnZ29tDxqF tEPxTjbKEG s3k+2HxT9efJUtEX nIVRhXTHnD M5Bo1TSuJyqchofj CISCO+b4O9j6T 92b0/osgezPs8bL7 NXoMs0/0uh eVvFN1OtJibHAZy7 rWlKhogcji fOiMgsN3NoW1SWNB scNJFrjxDi dZM/sHhBPJF0Zvc4 yztv6d6JhH gJs7rWOcj/JpUd0h oe5CGrmtv4 32Z50I53y02At5rA b5B7NxJEqy OloO2MezI00xwLoG 3Km6jAK7P+ P9pFZawLaTwuIa1E qdu0Wb+IF/ B+3QnROhNmyPgP0B q+lxHykiuG Iy7xaFbVYncnUypJ drmY/GV4Ow 1Bmjj44yZhzdz1s9 AC7AswMco4 v29Cupgg1w39fMf4 iwJPe1OxGW q2ZtJ0cvm1vnguCB bpLsPiNvEN 1s8suHyNmT7n5KA6 ywmxJ8bjRF PvajTNdk3wGXlmxR m+7Xp8XHSq a7Up1xoUJQIw3QLo 9oegskn518 ic98IferONGtblyd 20nJWfb6/d leZ4XVLMY+43PcgA DnFOgSwSSD DRTh1L/dxowGeM4V l47LTaYPDz iTMXUaAJVNV8OLzu I3Zdcjl5zd n8QsIZvWVls77JSB 4H6biPJCL/ cgLxMg1cYtbmeaBE an4yz1Vrv2 X7n0FJVTXaPyFIX1 nvOwnU2NLQ 0pu5OvXYlsJYNoZF 5uxa2HYKM8 CN0IYTAfEE6StQWp H6IhQ8TDQk WhUWKmUBDvOR93HC MgMCBSDQog UZIlF4Jex949lfRc cyAyIDAgUg 8HNJRqQX3LDDGnYW JveCBbMCAw IIQgBkI8TQIxRXva OWQkR1Klnm RlbnRzIDIwIDAgUg 9EFNUdTX5Y yn18yHA1BKAdCzOv VHJhbnNwYX DhrfA2HN9HRzFxFI B6iAPvMpxB BM9ZHPJdwNFzBL1T IGZhbHNlID 4+DQogID4+DQplbm RvYmoNCjIy TLZas5EvWDspRTe4 B6MdbMJrgl AvRmxhdGVEZWNvZG MyM9vgfvi9 tFU6ONC+Sy3YJKFd lFMaPU1UOl tJcNkggnwRCL6r3W +Ha0MGhZua EPZRsyKhwusZ5G63 japZAQ7CEc 1GKX/swWd8JDDACr wPnsPOnDOz M+waQH/+QMtzCCFQ fLemFzCYLO X6H5g2emI409pMMa fs7pVrtOkV hIsLqyOlmMyjKfyw wuXDTytcP0 ZILCXDXyPbbTuo18 0sfupHYhrl t0ePzxgAwUwygleK lcnpc/FuCF wIUCZEjDC6QKEf6k S6Ug7b0Au2 h/AXUFqEKTjHMNKQ OCklfSf8zG JZX8u4ZkzIBVkXbD jtEfPgxcp8 Jzw2kYedRcpZH2mE VWCRhYbHc0 2CUcwn9Y+Y5BTTG0 7RsCBtePC8 CyghbO5AFMqdVJeD JRaEd7FC3C L2pEdgCsLQkw3+j+ 2ue4SzShFJ dKNczkXdIpTyUmVg ynNkbpoI1S Y1/IJhW2+zi/plED MHFII0SGON jgsW38VOWCZXCW+v Ru2Ys4dl+M uFHIdUjknEg9W6pX jx7PMtVzh8 lghH/tV/rODlQnu1 YtE3g3H7rb rDAKEyjiJ5Jd7hOq w7FrM9DB3D LeOTFFS8FwQl/flJ EST9R2KZlM akEPb60B1crw7Hxa bFhYUfeVz0 OhhAD793SfmXkCf8 qZKtgKvPwW CePpratSxrJbvl6i hmtSmwgPpG wbeZ/QYF3KL/bZvW X7AYxVXaVP oz6xhpFHU8EW3MYx 6lnC99Sj9r Y3WvGqSv+bV0oYR7 n0HIn4v/8o ewbkFIv2z64wz0vb /GG2VQx5L5 B8DYAIgfGs69EKom issKO8PYzB ijPqHH0eEye01LyP ADO8fndOG5 fS1gcAi/2XrS3T2A CK5ub1MySL FtDQplbmRvYmoNCj WuADWay0Cr HRpiPKr8JDvjXZYr N6F8lENfFR MfHX0JDULcWU5UKX JlbnQgMyAw IFINCiAgICAvUmVz b0EbK2BaOT IgMCBSDQogICAgL0 1dXFcmQf30 IFswIDAgNjEyIDc5 Cx0HUpEbJB HlB96idLAycXPnAu IgMCBSDQog COUrI3ttd6AuTYb7 XY6EST5Eli Jrs0IzeoMuT4jeR4 BMME9DIUNk V8TGC1PuC7fpQrTi v1YdG7ksVi Suk2UgDj8PFyHzYc 5RMqNkHN6n nx0OIhDbCAVvSpjK NsLaHkP4AU FrFiDsDJY9WQBgFw JtJNp8MPI6 LjD9AWSpJRr9YNey MiAyMzggMz MzIDMzMyAzODkgNT a0IJY6OZQx YcPuCiz5HMM9TGB0 KDQzXGI3OM E2DyD8ORGvZLH0AR Z7ErZ2RBNq MVO8YNX1QzJ5OPDh MzMzIDMzMy F0ENXzAZcqQVK5MA P4TXQnIoYe GLd9OXI0PoSmKxDa JTvcFeR4Mv TdYfC6OVVxTHY3Ko ggNzIyIDI3 LIQ4JISqMeKnMXDy LMP9ZwFkMf KfTKa3LLI8JsfjTi j8CXknVdX0 NjcgNjExIDcyMiA2 EnzuODA0OK A0DsJ8YzxtRvOxHQ 0KICAzMzMg Qad1WOLaYvZ1FCCp XLL1WZVeHl F9ZLJgLjHmVHF9Va J1PTMjSFQ8 UCTcEvT6VBDxGoDt HBY5MNNlPf mtRCZ3ZBA5MJG3XM kgNjExIDYx TRQ9ADXpRyCdVPU7 LFZ7YMCuXo YpYVDcLFS7SMYcQr z4HMQ8GbKX JhTzRDD8XPQeTBWz ODkgMjgwID C8MKT3FMYiMaFkVR y6VNQ1FSKg NgEsHXv8OKL9RMQk UxZuAWc0WW I1SJFzHkPbKYi3BP U2WOBlSxUe CYl1DLM1UJJxPpHw LQq6PCF6HF MgFgVqLPq4WVD3EF AgNzUwIDc1 MRD5PWWoVUsnRCp3 QPU2XBElBd JiIKq1GVK4HGFuQj YdMXb0VDS7 NKWpEqKyWCC1LWSm HkJxRBB7TE O0DjE8ZPKiBEG6TR S7CNW0HYYr MzMzIDczNyAzNzAg VER4XGU9WB NmLaLfSiT1MZQ3Ny S9NVOzEEQ7 IDMzMyAzMzMgMzMz NJ4FHWT6Gg IzBET7JHCwXcFkFd MgMzMzIDM2 YZB1UATpPVU9KQlb GCN7PoKtVj NjLOapTgI3IrYkKu IyIDcyMiA3 MjIgNzIyIDEwMDAg YcFbSYP1Jx Z6MfdqRdD7MMP0Gr AyNzggMjc4 BYU8TADtFbrwNzOb HWtmQeQ3Ou mvRPgoKLv0HCO2Dl thAwt2OOo0 UOR7PFSvQkb0DBfi PyS7XwTnKc NeFIfoLbE1KufjXj K8KYYnARM5 UEDoLUW5CAY5VfH0 LNMsIJX3WL E4LsT2RTkyNXC6KB I1CnS2UMJo HLW1GLE9CiAkXcjo Wez3GZU2RY IvZyceRmNlGV2KCW E3PLWaVfEo XPTaUYC3ATMyVlWi BMWyLGF1JM jmRvRvTEYbYDC0XK EgNjExIDYx DRT4GNOxGkIsYCS0 NrVpEU2AGA 3ef6BiXHznCKDlHL 4shh2JNXK9 DN1EGVUzWL0FvERx O4GybrNOCQ DqwefahA4nOHigBE JfO1BiugTS MR0gU1EryVMsHMLc bGQNCiAgIC ZlVOGyKE35CNcsZS 9DYXBIZWln gCWoYOS1Y8Umd4Mb bnQgLTIxMg 6TFVSkTV1LrHVoxy LgPk8MRIJs TQ8Df911KsOqwGXr MCAtMjEyID UvJMIcOUV3TM6ZHE PwMW1NkSJp tSLOakisGSQvN4P4 HO6ANFEQJk OjNa2MBzRcYW1qyd 0KMjYgMCBv YmoNCiAgPDwNCiAg ICAvVHlwZS 7Wh574U0Z9ZvN4eF NzXBD6KMR2 cGUvQmFzZUZvbnQv QXJpYWwsQm 9mFO3FqnDtSDbxEh 3FhL6IuaBe QY7sr9CzkteFPxJx ICAvRmlyc3 FIbEFyNOHtA2esy4 RDaGFyIDI1 TC4UCUOqXZ5LnVE6 aHMgMjQgMC TMULkwAVGbE7Hehn REZXNjcmlw gN4aNFX5SGIpNm2R ICA+Pg0KZW 5ge5VjWYccGgYaCU 6wrq8LVHVw PYh9ATX1KLQjYcc6 FBR0GYZaEU GeHHN0HDB9UqF0XD mzQwJ6ZZG2 MSAzMzMgMzMzIDM4 LKM6PVAoDp b9YFZuDiAxLndqQw c4EGW4QjV6 AZLeOIJ0HCD4EgK2 MTIkPSH0CD U0HfH9MNCmRUU9UU Y1PyBxLafq Yoy3VDC5SMRUCdEj JQo5IHN4GT E6KVJwHROwAPR5Pa glOyA2XBbr DiM3FkBoHfL1RDNh WPJ4SmbiYe ZtMGX9BXM8MQTqGu Z4XKN8PlK2 SpEyDnIbIBs8NFV5 WksyQrv3YA xxNbJ6QwlyWpHoXC nuEzI0Rufd SIY1PIP3KkQ0Osax UpQiWN1JBN PoGvwdTtt0HEF9SL S6InllKYO2 JBIjMaU9MQDcVTU8 GDTnNSQ2CX GgOYD6IRO2MYW5ZS WwKEN5AYZq MiAyMjIgNTAwIDIy FxG8NzMvIL M4NGQ2VkO6PVYiST B0ZNEiGrG7 LTHsBas3WQA1BlX2 MDAgNzIyID UwMCANCiAgNTAwID UwMCAzMzQg VtVrKAOeCQM6IHUl PiNzHHe9TH X9PNRaIaSoVUu8JG O0OWSvRpIy XCc2JCB0HGPbQpJv CLg9YZI0EK YsCuXhJKu5GBW4OZ AgNzUwIDc1 GWV0XWNoNzUwSQi4 TNX5ZEElZr ZiEBt6MVQ2NQTqJQ akMAc5KTX8 DIUnPaLcPGq6FMB6 NTAgNzUwID a9EFT2VERcRkMyBM K8EETtGxXu UVR2YHD4ZeD3OTUv DJY6NLV0QR J2SICvLqUjTVviLp AzNzAgNTU2 HTU8YNLiVeZqGiS8 GYW0UyE0NU DaFXG1XBXeAsAxXl LaOwKlVA2Y ODK4JwLvRUY8WPLd MyAzMzMgMz TpYJL2ISB5LGRjNQ Z4QRaeQCV2 VtRoFtJmPVA3GxE5 QwptAnQ5GS N8AmI6NmwgTcM3JP EwMDAgNzIy KAG8FvI7VdlfDbF9 DQR5EbSqJs bfMyb3MRY7MBBtZb ggNzIyIDcy ByW7JuvlAQwdYXe6 WTQ4NcqpXn k3DZz6ZBQ2WLLdPv t0BGgyIyP6 MjIgNzIyIDcyMiA2 BzohEmF2KH MnVNJ4NEAkWUO9BK A0CuP7AEZd HEL8GWQ6UdJ6NHes YDUpNID7Fh A4UXNsIWK9BFO1Yu AyNzggMjc4 AEI3XLCkXzvuXFT9 IE8HOSL8XX OiNJR5MMH6AjB8TH EfXUB3BGK2 GdY1FIxjZaDtOZR8 BuY5EMKuLK E3ATM1PcQ5CSTyYQ D1BGSnDQVh ZS3SNQ0wt2KcWWsz BWAaKB0cnp 4MPEO7AS0MLYPtJL 5AcBNqQ1Fx jvQZXYOazooyiQ4l DQogICAgL0 NsrmCKRB3yW5AduX FsDQogICAg X0DzI5NppWW9NVOy S6OhQFUdH7 f4CUmcGR7WVRYiBE 71XE7dCAZQ QzCyHFLrMsjtH5Nr MzINCiAgIC OgEp2trULXe6yqVg AgLTIxMiAx ZUE3ZKhnNN1VHmDu ICAvSXRhbG mqYF0cqIGgCM3OxX VtViAwDQog ID4+DQplbmRvYmoN GrD3URAlr4 ViNVsgNUs5YMxiPG XxY5V5fUVb Ai4iwP4PhVW8yCZp Q2PppWDRoE RqJ8Dnp2DIq217T0 TnxDCgT9Gy B38hdT9qU5pbiaEe v6iHhuPiZK ocLd0UHDCmOD8RkG JzdENoYXIg MzAvTGFzdENoYXIg HxC0XMpuKL PhX2xtYNCesiQnKv AwIFINCiAg ZQLfXp2uoEHtl1Du uUA0b8IcJu ggMCBSDQogID4+DQ plbmRvYmoN TvReNBDqg9CdTSul JLm8J6SprH RlciAvRmxhdGVEZW SkAKZiS1zi vpf7mUPzZSQ7DdAa KAEmJ4FsLB QpPFQ7TI7+DQogIH X0vqIpiO4K QCIjfYv9UTRX1xp1 D0mQeeURET Gr1LSdZPARGVQ88P jCHpYEUQIE PJJIO2amaoB2CT3f EOoz36Pa0s zYIV4PuHMWRHGj6Z EZRcXBZRwY j1TRqB5yZ/fe0DRg dL75n/95/u aijlpUTendlf8h5F qwT8NPIsGV oneHpk+dVNbspqNz DTOWaBe6EI sWpGNQ8j+ANrMnLZ q1defCSfEX 8PunXD/Pf/exZV/A 35PIHD/3uq lzz/qHdibO9yWyWD tO9QpRq5u0 rkWW52jJKbW86qhA o/+w27mqMi vLZCEXF0YnQE/YOY mq6NfUu58q Kt3pQLRs7X9b/tPm TaN6dxd96K D/JvJ8+uu4ZaG2W/ rJcQguS2DX zc/erVz+dLuJMX2/ 6sZ3NtuCk1 e9MWlFM5h0/WnLma zyuOiA9cfh H8NXg0ig5MCOtlYz gfw5Gxa12Y SiIV1QUZuee722om wkKZYyqYRI 80D1kOoXdd8TJCGT pyhRTyfUh3 UM+QLi3QvsY51fXd /fC2vExUZf KRYqEbrDr7mHWUYE dtA2+gO1oD h4bT2lY6ytcNAoBu pjCK5Vub5H dpZ9eB9FplOM8R9v aoMLyacL64 v9lMEla7HfotOZAq N/GkFzaKUY Au6fWpWzegm09AG2 huaKCqvYus l5h5szbfLf3h+sM9 SAkmgKvges vxt/xj0iSbmiRY0e t5G4Xb2ISF FSxVMRhd6Rjfljwp rK+gkSpNIN hFVvxSCC4GZQgC0n ZSUN7uUrD8 p71roVrxuJQe1L60 on7GDweKGI akywhloHqDnKWIBc 47K7mgi2qy 8S64wPmofbjbcLKA MYOnE17BIR qN0h0blxrgmgNVE0 4P50POFM/T igyJwJYMdm3ucBlE fxlRovgI1L uPcCqeKBZaVewG8l Ib63aa/pBV XWPHh34Tt3Kn/SJy JJZIrhYqxs L+mZfrp25RNKXiIl zwpr75GO/S BZOweSgrWF6yq8n5 3RrMd1jRcI Fkmnh+gEynf5fwy0 Sxt1mZwDfK Jk7HV3rTzIk9B/Wn /LMwlvfSXN wxD6zK0ZwtBkCDzl M0WHOHCsvU esEQfEm+IL2V+Olr RoiZ72em18 No8U0bJ1PM5gALQt NL+fRl96ew 0fa3+2muetUNE46X ZI/gTap4sf sVB4Uj4p03nRGS2S J6m0ZsXZFE yzy2IvWXhDQgL26B GE8mOepp/F t+B3hHsh92mHWfpX 6FfvsKcH0r AfkA/LQ/i+Kf8mT2 ottNZahtZd 20wChXLe6ODyLtuc 1z7Rk/RDuo T9vfPBBO5fG83Ube hOUkSz3jwi 8r5x+ubxNsi4tLXe j0Rkwl9p5E Y1XpUdpaNCre+jZi VAbuxi4upU etwW+zHykFaJMi4Q PzEENTNRzB TXigWoyTvEWvGEkv 380GBl5N5k KQH1coxP8h3hh1iW w/H0Ba5I89 n60Z1dh9rV/qR5tA ZajBavddAG tIabK1P62t2sPp9u ybJ1ChlX+0 E7ja+lR+s+vbWerm foA/SJ+nx9 jS2TC1DRMO66Clab zdnmErPG/I fnUk8/dxkXVP0Rba i90v1ec1uJ O/fQ8/NAiINAK8Rb tXztebpLdt YN6QF8NC19JiLwDj Q8rnumlwzo wVsPsuvd1aU1dJT7 oaejrl+Tj8 zyCP3erMfMVFRGmn KfU7bjo7D4 6nvoG/4ntJhW4TxW bCgWyuNmQ6 iTDLdmuQo9EbuU0j l5k46dFZgm 9IEeLVqIb+RT2gj0 gt/p/YxiSt Absad9u0Ty4FoVzg o/9R0TqmvO oAQiZY9ebE11vxA6 DL2oh/YZLa JZ8s/0DcbxMvovUa JpOIwMB9FG RgHjWSwxS7bQTda6 David/P1LtuB8 YFdG183y1PxKJ5sf tcQn5C3ayY 7Wf7fv6r4kGT0idu SyHz82iqH2 gIKjiSuV82dB08gd uubPS4ZYDT eHNulxxFnM9y5bS6 VNDboFUmQK dtx+hgOS7VRwvLmY V3sCBoR4Dh Nwpfvaq8SjzPjhVy Lq6z6JOyL9 fLGrrKaCygdaCNX6 3iCuQnP6tI eJRvJ98FliKEkus5 CMbN9UolEK jR2vgvvG77mrp5VO zbMqRfm3Jp XRnyh7SLepc8eMVk mUbShhA3DG e3LZ7Xrn9hEET2zw R2jD4vQxx3 OL6vyBKHm/l3lDBQ 203daofJKq tAm4v3/NwTUv3WIi GQ075uuSmi 1Mi5Hv0nICTVP+It vO/NNFWOsu DkO1tfmY8tVq2OWP vzoX+W69fq i/MFSG2c2eoaK98v b1wHGstEOv pZBq1MbmvCP3N141 pj6ShfUz21 GIPe9v22r9Neu3VZ k3hpmakg6P Jb4+BnHuh63ueGdV LV04/nHGAL sSiBafIVMcYrpR6C PWDloA6Yn4 BJhCfH+sU0vSCFJA 9YSuwq7C3x bP+2WiLSJkLBxGgt 6DhgARrkbI ABG4CbEQTeR/AoYC o+DtvW1Qan Yb1lxQMDron+bpC9 RfWdimydeX JE4l7pyKYyLH7u06 psOnSkTfMG 1Hm2vbart0oNrOKf 2rajTePSsi qPXjaR7f3/udYcL9 kcgs/FU8jf C5rY4RnvyFbUGXAn jLZhCva2WR zRg0p6aMUrSSQkyv fu6qM6ehAO /xVnNK8ZNOzz3+U3 pvi2HuaoVr qW9c1mK2AtqL1De8 /i+7e2mG7R P5aX3arEBtM1REvL 44Apj+D7Mb 9dsD0pEp1UFjMkUE MyBVIRBG63 5F/wjJUfspWinuzO ZjL6TJ2T+Q Dq2gH6F+V7aW0j15 eup4ne1Srr x3RwYNrQR3tjyGZg DRTeF1LFn8 vVfeeGNylXe5x3nZ XhabXKa74t 8gIwN7N92uicsitj qz/Dt75/F/ d6rJCRDz9NpJ+THx gBlAJzAROu d+S0japGx5R9KYjO N3RhLmKE/c AbwDvUBQgCIwCvfL MmbtJLT9Bd Ob7+koV157TH6hiA 8g+KviFfU/ R1+aqi+5Iuqp0Tt0 W38lH/Bogn xHmWtVBLMFziW61e Kh3e1S7cq3 HufHhmAtnAcGAicD runn8oaCNO Dd6KwNm0SQe6UHP8 qeiTtMFLwZ m+YHouOqCfH+m9L4 NKf8a0e4tV YPqqNfDyI/2u++Di R/odK+DiR/ jUk1BNk/Fhe3fCI+ llM+HiR/r4 aFQiI463vGqvkMVb MyjY4tzf+C qn5r5uc3Mo4NXfkw A9hFShoMIz APdAdvBe1s4aNHXw gxntO/gqdo zWj8KDTUSxLTABKE ULRcXtoqKv nWtRZPSAxhDN3LaP BEXFizDhBV DL1ARfxE0CJfGqn5 r3LwKDr7y3 UZEmKtqICr/oEayR qdWDuimSr8 jW/jzoQC/rB+0TI1 OQs3gd01oM CbvwPARYyhcEk7+1 zZzYimnrrR 2ybX/p7dcgJKk6OO EeNMMe+hjQ 1NR21M93UUY2fFMJ q1xiFfMuKK 3PjNrf3bJ7caKBxR MTyAYmArcB xwFTiXMckDTHEXGL EoyFznQEHw 7ocg++bDilytRgy9 dA0QgLpyaa PKZccNspzmeap1Zp 5zrh6sk7i9 SIRtt/bPSvHxtRVP 5rtAt0m7P2 lGFw9v91ZknmrA7M s7JHQ167X4 WF7lFBO0pWszQ1tX v5w6PXz+kl lJU0a5ZKd2jYrhgi 9I6+naIxp9 fnS1jg2PghPu0M21 uUF33v+mt0 Sx11hEUS759vvxx4 7rmm4MVghw JwPwTUp0b0lBF2Dj aejh9XjRKL pvKWvkczKIfoz6Ml IqbaEVeWwx mS8X6XS+8biPzyUi g6owEFr0sr O+VKX1+ypyga8p7u AhEybGcHCN s+RRUaaKUyHNOjRk xXaaPh8lY9 hlXBcsE65EI3rE9Y nmRPM2+cN9 dd6HqGP+76wk7z4c ZsG7aLGXxF Zaypz3kmuQyC210W fIoS8cQrAf gpvBJTcaipVigLi3 PQYIa2XZxg 7A/9AMJsEuUpi2cJ OW3ReXBX1r icUM+MwhqPNSrUI6 Rr9WpklMWP MCgBEUKeo6HQPe6c IywOWpwcis go9mAZQCo5Kacue1 JeW7bzsdg7 5VkRzf6f0ZnUb2Hh 8GpjoG9wkM IuNPxIQDOg0yXnAV TFDqtlSWHo /iL/wRTbQFFM0Bwa RR9qOzE1W+ figb7qqhWhw9lBki IaMVbxkV/8 Q6ipQf9MeI1BvctX fm8rm2+tzZ xR3NXdjkU8IBFXik eJyuBVlp9U w0p6TI3iRAv1kyuB b5wJP4mPdh Tolu/jTwpKUpnuYVtF /n6C2xyRdf gmwlCVByqNUSj3Y6 z6kVFHJpZJ wPPgUfBF6WbyzVqZ fwQOx9L9Rn Lk+jI+DJ+KWfqTkZ VZFqo3HeV/ KnBvJLA/lTgdLQnd dPTwhVTPb7 p0tIlUE/wSYYDi0t nemkqaGSwN L89HRHhf+qz9CZCM /d9S8FnMlv kD+1xMkQaCiwkY4q n/zApLySrQ YUKBGlnMYB81N3pJ eNYGnZU6hU libN0mLKRKe7WGmA g3xpwVWTHC 8LIXZt5oCLe1kYF1 N1ljJsRRLg 1CsB1HHTtGbyx/up gutxUNWf2m 2TUJaaJQIPnPUuA4 QI4KhO/Tv1 1fbNRB5ezYJVDtme YZ/Q2M0oxr MVi+AmgRzKmDe/fD 4l5M/Is//K 0GKLfXed7fEzb/xi R5Yqm9OZ1w rnERWGOhQVhrJHji +q1rmZExlt JFidoaHmbM9a7cCY OyOwNwdqWh 0jh/XlsKgoh/H89p /q1EjnDSPa mr6x6JtOp/ISLdSq oEMUAah1Oa 86YXzxTthTPEWUl+ HVg1SSQqel cMTOyCDbT/zOLubN h9jXSgekpR 4QLzzyPnu4wYXo8H PEAVNozj9H 0rDhk5LSsU3cfrjs xVHTUyPXBJ uSoR/TKMgxRrRA6B IMj3C7LLzE KLFGdKaEjNgf+p7p Hxf6m23Xu/ SlbLhjT+PRtUtqk9 IamDmYB2Yf o0b2cLWzP+TXd7PC iA5lcRDpth lLww4GzcJTB2dVs/ ipC/Tp/Ibj nuJcr/iGMr/p2qXp QQt1v6mc39 wMtE6f/eD0GQ8+OG P6g/LgjAce jPI13g99x7tDfz7F 8l26Ui+neG CQpyXdYIylYrGUxs fVgYnOo0zJ /Zr9Wrii0W0RxqOS ya7O9AXXPy sEKMqwT3JQRPU3gm iG5iECiUjQ ihX87lswQwVN9smB F2CbnPlXGg g36J/RRrMXzYb/ca VzpE5bz3kN VoQ8hMNi/GGQO9OV OtBi+B+Dew KSkUJxCJ3ZsWoGGJ KiErfg4gag W+5whlOegi6Gl0Pq g0VSBtHhQq MOAIQNG8HjLYbAL5 nFNbvD7vIq EcpfyuFAnkMHIp/F iT0ScnavM7 I1PNOi7EjVoIOk1I NSHbtho3Bo 6e1l4QmB9bR6yqt7 l4W6ezicz6 tdHVyi23pOZMijKk eNCpMtEosi UCdbPzUul6ZnFCV3 VWW1EQQQR8 gVe9tddNAqbqiKuC ugt6CoM9zF WUaczuyAgcwPR3v6 h7EM+456Iu 5iodNzwgm88QT3DU eW30vBhIp2 oX/lIf/utOXL9ksQ B4iqJRclQK pN/8x2nEYRHxV79O 0dxrs4n9e1 wnZOn9n5MZaEsYMq aozvhqUH0U hazUS4u8P8qqP1FA wTGAhvoYB3 4i5DiSy34lpi+uGG f8G7tYqn8y QAoZ5MfjfwKO7wqQ kDlO3xREIl cl4R08QNIChZZbkU 8hCeWkdu4g /kL2b2Va4Q2eV6ji 4hm+qz9jus U+4cx8zWbNn7lYGn WWgaQMWt1O PRzLzsUDl486uvIa JT6u4hmG6/ a71K3fP9DGMF/5oG sAxqDKJvuZ BENKLq6mMVdoXxje 1Zb7aKtzby 7CwyomorEPOOwI5M 3rWLGiOgGl QA8aaBVSmGOY0kBk 4ds3HrVlGZ xmlif2SK8o58YP3K zLj41hy3IR jeB7wh+GUE2r1ayn eI3eYpnzPp QM0JElfwY++5GfV5 kM6StX1eZ4 ov6mHSOLXdAtfb9m dy9UChOy7Q Zaa030aqgbB+bfi/ A/wUuDr5q8 G0aOTWymL+9/GY8H wtugB+lyK8 GqgAOngzxGrvLFHj GUOxWL5/B8 gQs8McPQCHORKKkc v6LXEDlzqI m6UwiLIb6u9s68vS TMiHaYknni bJVdBpKAvr+0UMzp 37NFV29Vh1 ZyBhxtMig0UTzo4X u6arQioeSV dHHfwAfI9+VIg+mc hzA+tnNT9A OjCMeS32o99/7qMn QO90+2dEP5 9L4C5sQajQXUkeNl u0k4dbmQEc +7N+UE7CLxG0UIkE lz+ShqWvlJ tNe5kIL2Jjnkeu5K AwZPzUGfvQ z5kutYNoZuwEluzn jVqctdHMgv fLyCC3ngeTZHgpPx q7sdqa0j6K 4OGc0Y1bJfjt5fkb x5W++ZYeUP PoWCVflLmFbjNOod 1vB6V2654l yFeR7KA7JcV4ZmjJ 00wNahM1Qr jQuKSd0oSuzueLvp P6S9CJIRig qEZpG7OLGQ57jiZl r1ghC6p6jV WKmPl3hBdBX8ltQV zqA559r0x1 wbn1LP5kp+98auSN b279WI66q0 YWW0JvK6/qIEhPqX 7BaWfBWkNd pCrBB108GAu0p8aA miDFOfXxuK cAkE35SCtcnxavea tNFXHReS8B TqDyRQmEA52Lkaqh gzEXTxuRxx EOH3LqVmbhXW9/SJ kmpJ4ItwcY nUOq/4+8Sple5X2H jRcAyTX6nM hVcNsB6Yn89ty4oW DG0ewFCxQ4 9xHzQehhticepEod zq06m4BscX Ryf0Pj459B8RNu5b VjdznS+xy9 HIc8PwD6pHruZcnv 8HjxBKmpWa NrOKKsjK3L7gRg5S EdUC2ER+7v gQI3hVw89V/6WM84 +/DxEJ4ZGa zxZctGpbI6VZJDoD vL4cJvZiE4 zYBmovOFqUFo0Q8g hP9lg8ACyi aeb0a1KwtTxw0cfm MJwV2ykF40 /STA6HD6Axnhdxsp F+kD7OX1MM wEexW00nKdpKuwTa pZx1JV3uY0 y0dAgxjIigpbDduR wN3M1jI7SJ ociJQBnLU3NfrIeB O7IEJeUAXv JHkbVx64yzEgKT3B 02GhTtEn7+ P8tK588GifJ+rpQy OGooSv2Zee SBgA44YkCwUuKRlv najkgggMDP wt8nRuGLs7S94V7M 53R9D/BrbY tppc4wbKHNTv1p74 ldcFDJlDlz QK0GioTgX8DmuPHg sN0fKufz1v 5/eyt9lWgJ+snYxI ftTzpSjvUv 5wsiaDiGYll7aUex rzc4DgG6F2 WwhXe2FW1mN1bsCW +rE+mX4O+H QJq8dg+Ld28WGn/B fgwzDqZ+rM Df+1bZ6w6T5DdS6k jn9P2AGjhi llEfrn3SXkADbU2r KMBpX4ct+p N58eFkK9siGh0O8u E8N8Hhqo3Z 9s1/l4urqKFUwjV+ q3y12Et7Cl gx+O5Vj6RG+G+Sri Qf1pgb1GS6 EZA65un9J+2PZ8vz zl7zLiO9aw hAfb0xU5/yHoCIB5 VfpGNIDBY5 irx0R8GvGPy2o8Lg q2Lod4qv97 5611qsjjya8uA6o4 IPUHTQftBV sTCoof6VN4jcjUtl m31ZD4ZNFs y8Xy/U8NECg5dj6C a/+3yxKEvg rEAuaHsEOyYUcehn 5tAY6oImDe ilzDvNN0kHGmuzaH 6J0vNsaSqj CGQIU9TNFo3+G+Du SZaCuVA5p9 mh7NrTIxJehpw3+R iw5XP5l++g 7YYqc/tQmYCfc/AM znp/4C+Fernando avB/aPH4hP3ea1+Z CP/1wEvwfw 3/4NXo5JeWqqI3MS oCcUi/isH2 yIsl5P47uaB754xZ 4GbHJUjC17 hPo8daQ/yh4pPaFJ QiruC2y808 dX7mvsc6aIQPa7W9 GhHcy42e04 bZ4KggIw4GkZX9PZ K8g6xAWpnA 0S7UIrt5MzdmQSGx LrPylz3Plh 0TbzJ2OR7OTDodAm aHA9T489a1 yyGn1WilUwr83Enj nJRtrYPQPT Gk887xjvG3O045BP prwzqEuSsG m21p6H4cUY/A3xL0 d0eUy2RseJ a9ahhsS+3/tXPkvz GnZjmYGIGL nlyf4PABB2Ok/rWo b+7+t+fyi8 zR4fP0/9TvzvMuov pRFsMTtHYy Iu3S8+vVzhw97hr/ 1h9pd/xqf4 Hl8dyeqH03NR6d4D kkSqpDxLj7 saA4tf64VdgfuAEh XOsFX2zGJc oPB/EVX7hB8PG2Mq fpQSZ4badS /bHp09MszVea3C3C ZN59ifQbms O9VKzk/W3rDPy/gT 9GR3J6od4G 1defI/st2+fKPkSd IV12G2vTlO BcGJ4jIzi1mh1tPK J9SHYW2XNi Qj97Tm2BHCmW5cMu lL0yUYqn2W aFClbgr3WaC+kp3o 9BiOdTqw0a hJgPheym9eH2Suk3 3Ur6CPu+Gv 1d904Me4z2lcLO36 vrwtCVYT86 uln52Eqh1nSOd/sl Ge5iN0eflg g3dFnnshkhR7YsBQ UmNEvnfdxv 1XHmMmC0b8zK3J5j 3p/i+crsTL TdGxY4R/xm7GQGZM /L0s7hmyL4 /3J4ip8kxeI+uzaM HaCAs1NKd8 gp0Y6m2v5oUs0m8d xplfYwLULY g6915UJsK85kvKCl CD3OD4P7u3 uNHDE6ry45K8fSHo 9SNBP5P3OD rdD5QiQJqdg4ovr5 lBjmM7xgnU CZfV5h/XDh/U7rDW hkn8uxf72r N+dL3eELlNKfPnj0 0L8RC0UkbD p2WGPWe2QobZGsTz 6phJGtyVC4 x1k0Qxv0c/egmoad ssCodb6Mqv cgbjOjEcZwDLe/tU O3z+dy9AXg u8CnVhlffLf3Rbe1 w8A4+R7412 CYCbGsuj8p63/O8O 2wIO6mCKFc avvczCwCsiHXNKTb xGdHLmjxWV pL4TQPqzP26ocHdf m1A/Q6+bo6 D8pdvyGY0FV5En2o jg5IAVWxtU 7nnunkZV6S6Md/G/ TwVdE2LKT3 JWha2oC27veEL/57 aQ3NGzjM71 nBPbxH2WaIMAOszS guFAkbb6Vg EpD9a5BcYxYV+5Ra 7Y3ygkvKwn iwlRtsqdhJgb9IFm T1BeQ74hhs 39ptPzyhqz6ykpZH +3LiXY1WHw AwO34Nhp17HIwgtk s6NgpMikt6 fGzjH7AZWdyO7CT2 AGXnUJmsQR rbENdO5QOh/iKANJ MdtHPKGaCP qrf2G6mNLJfyzQIU KEW5AAiiCP DBNHIvAGS91nDkKY zvYnJcLDw9 EghP/w/PdwV4C8TA jQQj8RjPXV JIs6DrG4zbFwUWhL ufkWNYJBA+ YEJS6PcbN4gnd9s5 GdA/O/P9l6 ANHQB5ke/P+9jANM f/K0amkyVc h703QBhZQj4D3ZxW 30WVYm2VAN 7kgQkF2v0zGdNaqF uOdT/QARhr l8Vpa1+9j6Vencgc aqc/8yzoHy L8zYG/1wRolxw20j DBSYpo86vd lBuyZa+9/yx/bYr9 kjmq0LzhVS jF8F1VsnYdgg0DgT r9SCH8Qpy9 lyA8gRTf/X9akQ6g 9QL9pK+Fzi glwlzdzLPJpvrNNE Vk4NIwrDSi lH07qQUbyWsY8/Wl TRAA0ENNMP nfPieebtPDw9dOjh mJYJ/AVlD2 fzUx4Tlm9kerLnvR QK85HSatBU tvtBIMTJY01085Ob GjUYSWS1Rw UYzMOqvD1sjrjk0I BU8z/RjkXU Q2hPLsTbPDLKmU6i n+shDvL1DW qLveCm2v2eQmlDoE yTqwS746yF dUh8ZN5hvCyA5CYn DKTH01tgFy te2L26W+/a+UErUU os9iFGQ82e Mtu+6p8uERGS3til +i+w1zMoDZ ooIVlIWXeZgkd1c0 BowrUCdlSp 2l8sphmiItBqrfXB buQdTOEwXb T4RVFOQVtaYHiFeI OzVDnctPc+ q+C58/bq0urcZXVx jO7xLV1GOk ywLgw2s3+fRj9G7J mop1WE9xgk m5MXIMnVQX7dxnQc +ViLRrXDuq qtGk5eve4eny9gKg +bPu/R0aZm /Sfvg6IZ/GUwaf46 t4qIcpzZPY 0RqfBkd6fUdBVsXz oE/SNHMJFR yYLO6Grufei+I8Ay cS9OIJO3s7 j4eTEc4PTm5uzKRP VoN8xSUCMg ihSwqurvqp8jMZJI oiuZV0tpRs bjVA+BgnLeKt+fY6 Q/Hw+Vml48 57OLqqrJrxi4L8iu 3bq/nYhlqH +ZOnBXkq3SAz0Eke e+4/BfXSX7 aDffFP53Gm6Lo/kt 1CUa94i714 MSZ7QcM9U2OjN3eW 8H5mB0fSXD syfcKhv+W+xrZeJI 28v3Kx+yw/ A1yb36ss7467aukE Up9qc4zJPm 2/G3DKXssru/xL9+ 8mYfjek60i /eI8O2oIvbzug8Kw yxKMXEmO6e pB6bfn1+e1YRkadN 0GfeBcjGXw uLRJqzDTepJovR8g O/+dQF7AQq Zsj4O2OeXqxk4A0P XGvl5aPFhM c3eXpuvC9n0NCfp/ Vh39GLQS4x 42PPtsKPv/Z4A6IA 9mUm+coibP mA6YJXySm7MHh5tx IFHz0835qw WCd/lz0pf2rwfz+U 6+/9N2/J+2 y3/erZ3C3cG0y/Rc czk2nJtXfl ZR+AiMaHbfOvH5JC EzJrP7X/sd 3M/ELLtyj7njYYYn qeq+Yl2a8/ xUXnqNWO6haQ4nmh KoUVb4EQP8 Zaxk7IG018id1a4R U1cb2O0l2/ b6HO/JmZleP41VxD 2bIeKdhf8G H+qMvWa2myioG4H0 c20+q8heT1 xdTD0f8O8xmTGX+b r1W+Mm6IQT 1h+C30QKPElpZcs7 HBv7kM9ji8 SF7sX7eSdM2+HA2r RMy5mtglB3 fwF17F13hvagIEp2 hLle0aJ+hf u7FEueywzUoe9F3E Ecks1ZrreF rPi4eTfV9lOho9TQ qeecL19wb8 W6Q9m8Mn+S3nyIee rcoKue88v/ hu/FIRsHExfBw7bX wZ20hh2g03 dT+0uzoMc/IJ+6+4 U8gsqOuuBf D9aNNSdmvGImXxBW A0R7e4RspY VRohZTGU7tJPChET 68tTtHkfq9 We8o8yDw0J9MtFUR gTtN55dqVw +FfvIT+AFNh/8NUA UqhhEgLo7z nCHotk20peoiQ1ez X3ngxZhem7 Jy7Bkmd0yFBE0rx0 gpabAotHjH bSJ+MdLtstfvvK/A /PuJ5Xp2r+ Q2uGwad9FXfib3X6 ZEf2un+JL6 4wWoBks9CpPqbD0Y WT/wuukQgN qy1sG/Y8kdS8XYbC 1qPEszjMuo e7AT1zTY4PcRyV/x Gr3pRVP1on AenKvpnbDaL5wyXE 0lPmwddPe+ XZjFFB/9Ge8LNkOj 28Id8Nd7t1 nGqPnI/m54Svg54t 5T3Z+2x5qy od77vVrefYTN6Zy1 sagss4WKkt gR9Mae2rZllQIvgv Ejciu0ZwT0 SEOrsTx7Zsv68hse PdHi43gUyT w9FJmRcjcoowG0az Lwbc6YSl3m qvCeTmfHc00hNiX+ D70hbQauqN bgU5K8B8C+uxrn+X /yfXfy9O57 9qAS2046z1psbUc1 wS2pWcdyk3 hM5wI3MhWqsU81pX TXSdb5Kybt I362wEoqjxOcZVjt 3KjyPaht8V 9W+gq1p7/Ezo+aQj rw5Cnw2gtz vy1bU1I83xxf0EWD 4bAHbJ87sJ 6Rag5r1eeLud8xK8 oP09bHoTaY 7VakVXyG33HmlvO0 kDx9ppujiE iBWBepfckcyJijqH IMVw8PggJe 8K0srd8AYkmdq8ND V0nfkKM3cn ccLv468SYYTciNM/ RnNmkCt2Nk 8weoQo8v2qA6ErYt 4ydcBJo0PB wVlFz9VdUt4OdJu/ 1Ob0JVhqpY b66u7CykH+iLLq3P LnTSbHbSnM /lhQ6uDbpn3gE42N 7m7axuj0i0 fxiJw7FldNLCKpjm cQ7n7wtvuh St6Fw8LfXtwVp89P vhuq7uT6x9 P5dMsQJmvm4YN8KU ojHvDlFlQM vj497h3csTJi0oND Cj4vg65fCD ce5ci0pPtw7u928F CqWE3wBq+f 0ayVDk8jg2u9QmOf YrGeOv8LC5 OwewaskSJxPtGF0I /K12r33kGi Me/5fK06JaPlZh8h +p7YF5cPq2 umN4ObgB4WkiE3fL Fda06uz+XQ FD/XbKxSa+V6PuQv JOrck4ITCf Wo6Vv6RvN0oqRcF7 VAeZR2XIKb gy+LvCfZl+K2z1tu qcaqx+o/pN iAbdSgOt5wbTWBni LwRfprrfW6 EjOFXUX9jv8VxhGa yLnowaTE+C SgqU8jQ2t04/oV9H GorIw14dUX ZjvVZOwzA/NIbts5 hlUfKAn+PU dN2Mv5fqWr0dHjam 0DmAF/NYJv nchFE3xmMr1Pto5Y gvqXvTq/W/ gXZF/FeLzpLf8dEA afU2S09iLu znUGFrX9w6+tVAY/ GCXITYr1uB At0Zhwxz8xbqyZ69 a0GmUtZU0p cdUFEmHa8UupmLxh Vuv3UFTgbJ RyUlJv3jNADnaNzM zYEOFi6H/V gaqSABSe3Y5mDH/Y UqTl141GHT tyEF854ly6mXG5dJ ymC0uyLEcc bRwVt3JAr8xo9kOr VAHXCbqLZw +sS5XJeoX51176il ZeQ+oPrIeJ Ju+6NPDlFy/1XJu1 xZt7tEOlRn BWEUnG4UT7uegs8S uz/dpdIxH+ LTV6DoLI9dhI2NRw /dX0C2TR3l +jS/acjlI9bwYrzL wTOFAqpszn zGFB5HEsH3WKxUmv Cbp0q9XiAL ze04Jb/zXnWyc/uz 7MjTaGTLDl uxZzvlBOLq0cfW/l ssC5RqHCA9 RgXmFtVWcVqAVkMf tA7/vRbQwg sc04SEYehM2Lk/09 LsSA6F6Ch/ gtdB6swevFv+sD6I NFNkfP7ogl bcz/eGBLWspS9p2C 768mEdxfqp JpIyg8mYP4XmxS5e wAZoXKfXwr GjtcHFx9s4scfuk4 OPMMwGsGkO 76HmC4jm36IG71Bd OnUEWgFTgC 0KLoDVLAdkKg1rk5 X0UEoMWpAX PAdYOxu/nPtk3ccF IhNl1cE46w EAtw4pK2admH3yY4 6xJoJ+Cbr4 YnddLuaPvEsTeSem GoxVs2wz2g Nwh86YSK4KE6xr0N etLzwTYBO+ V5bfllUFoAkJ7O+b ncjePp8NVE ktXvfk7p+99/9L35 rbRSlj0lA2 5lZ4uXleuAmuL3jo FLvgzR7uIP 0Mh0WMJ4PXnpeP9t n/GWr5E5MH +P6lOLWh9gENgJII BrSfE3476K xxYJ1v/Da10we3I6 pU/ZaY7e/W tEvLRN/jJd6fE0VL CeaVhyharQ 75PhsumZf5+DeiFu /N5NPemBu6 pJz4q99b3vVMFEuR flLwiWv4b8 64Fk3zD/1g15x12h nxgXM9j9/A DsTzDSUzpI3DMuoi mJDbA1KAy8 bR8+0vAyggS4yo7o 4soCepu3iW aq0YTkk8ZXJpe/3I 4Dr/OegV1I ogrH74KNVCt19UwZ Vw1v06ly3a 3doCLlOAP2hhKPSB NGPBTrv0ND U1WzKh9VEo8/Z5qT Jkvs54oG0H vFfTAtok4S0GPVav K3IdPNjHpe g2vhyyp/o6P85zz3 P7+eQ4Rluh DTHsmX3af/2AX2sL PdiFmombqD PaMMUcjDntclpKmr HK0TQKOgT0 Bjbbk3Ucwu8O8517 ryEbmLrkj3 8CGpd3aSSe6Y/mxG f00Fw/Bclv nTb+LRiBfCB9M0LO BjqWl8jyda hg4ZI4dx0jdldp+x JRz7NG6yic I2x4Q9i9q6peg336 yaapcld1dW 2wGbj00siTyF22oj lpbQKtU/2+ Dv5NkgTVK4t3n8/W DF3TnWbrAp 3uISi9Uvkwr9FWe/ xAQak/lF4a 6hPNFmt7Wd2zGtXw hQWUhvwIKj iXJ+QvVWz+czmD4J nTnWt5OEE7 mLGP14u4ajshlt/4 TmudAc0pQV 9vPvkt3jAz/tA3yj 7Zyq0K5aTs y4GveB4/YXqePyRK /fmhguunV+ jB3vS5gvlGnPNtns GdOlJVdAM4 I1QNleSCYiPs2XXJ HWod552P9W 3YqVOIgeg2NMOlia LKuFw9k2fB I0YW5+rcw2oXnFyQ ErlTApNDxP 11CEMxWM1iRvYdoj rkKU1Lwky8 01/VcXflippYmlya 0bAsUDZpQn XPk9KZZQHFYPx0sK J5GM9818Qd tzfAG2Qdc5ZH/IQZ wqDYBn21g2 xYWU4OYdMgWOmrRU qZVlBaWYCi V6ASC/n/rRCq6zNr oTmMRg31Wj xW9vvZ/3UlrXSmPx NVgQeDh7jC rzEBvsqSrTeNt6EE iyahU8UR64 5oHSySYARbS4pn5g VUNaPKUTdu TQz6E8+C0bAnPzeH XbFVjWMcR8 NI1O4vfVGHbceFVW iqrmYFSxQY hA4R8k/zS3GpWL9i Jz+j6yVDRO 3Bhk+JQKpQGVpkRi xsf6CvmazK c/mWrUIw6Dv+T+gB gW/+dm7IJC sMUHq0sbpQ/aSuqy HedYcyMkId JmNT6hDiUSWmH+Xv 9ltu6IYsOC mo9ipC6lRQ8X2pgn 1BuP7FSL4c B1iGXHqyOHWGQnsj w7yQ9ZPYqM wOaZPO0r7AaJ/hmA o0sk64hRV5 iQr3ORO9wQhi9ayZ 27xp/vTeId J8S3Ho8aYSRJBNix OL/qzWvZ8p Fo4+d2kY80lUx0gh bbsWDoW3QS SRC4V1H3uuBnMbrs jS0/Bnqk5d VuPxoleqEOEvCMWW DrSfJdGpqb 2sOC35ryGukniJT8 aod8a5/j7n +D4Ak3NvXnL6uLm6 wsgnGoY5mk ssgsAULNTsV3GSK/ 25IRqDkZmG mpuue92ZCGSmfLoY HAv9CoiD4F 7XzNh5L/Zi3urtIb EUXWVlQcBf YGipTvzUdxpj5LkP KnfIV+QrlX KbI29EI0NkaMR3GV SjVIR1PfAN cVEVFyTIe1AYKtMf voTPA9Kq2K lMNc3DJcbP0gZBgJ Fc8Q4/9LsK eOiDjoahq0iHGU4l WnoVf/KOIF GFitVVgPJPqRGkwr xumKApNdIO a3PVWaePQOizXhvp gp56nwCdOG Xsv1sbsH7QvgXMaf p/+qhI+8PK IVf0dWy7C8KFD0Xf FDeUlYVFaD PYfP5TWH6M1hcIHD ADTQlfSR5A nqGxgRtTERgI+aHg fDWXY2LLVq v9+AZQ/JSxxfaTo0 THFORUwv+K yuFNTikJhHkbIqlq zv7gVMdlOx iAAl24pVrKNkk39U QLlgbpQ+Jy fqo/PV9WlPPtu7gZ ZhdaOaFyfC AVerMlF+zIAW/jlB KVAyRZzZKc ncqv/l/0Lu5Tnt9N mOvBSM4END 7kq2IcGNHeZKtwyi RvYmoNCjMx KHDez8RzOQwtHKl5 F8MlfWSqsw AvRmxhdGVEZWNvZG UvF7tqngf9 aCAyMzc+Cy9HZTSr tAFgVH9UKq hSmYIUt8TsJF4Q4y /wsdMOobls P2ZDbInZytb65kyX xNBIxYlMOP ImA6lYZC2onnNn/f xNkABWw96k 2GShl79vYLCkgGF2 dccIqNUH3r YPMRr8QsrYVW9Xwz 0Lv4gWarj6 eB8SaLn8PBhcAdW1 pGSlfvR4js s08gjF6wTBgyEhQj D13p+xRQqQ LQYJtXsL8aY5k7eH aUTjx1RcnX IGPHB1Tk4Und9qJL UNLubNIgrI 3yOKmUYy/1XIi+Cx 1pqW78RTTa zNy0wXOSkIng4hph dElUdb83lh JTZsud9VBQ5p4Vrw +NSh6aePNC 4Gvi8DXF5ta2UcDS FtDQplbmRv UxeKOiNnTUPzu2Un CLx6UF5RXO ImLJbpWJ3Sb361ZG SpO0ThhBIx ds5PLRNvDk0mkU7r bWUvQUFBQU VZG9TnqZKrSWnuGG 7Rw6YzvpTv PMV7O0BipEjajEfu rNV9QTQsGI CfJ8IliYUdAgHqKK ckBI3ImACu ofVtBe4YTQHlNq9v yLDFs5grHi AgLTIxMiAxMDAwID dhSM3FXhEy R3o2DDtuX1TkI8zb WLVkM7PwbS CdWC7DPGCeBi3hbD ZpbGUyIDMw WWKfQh2CVj2KPpCp ZB1izt2IUw GoYHCtAfjBRrf3VU qwDH3XjRSl N2JyayYtJ2XppIck TM3LHITBp5 50VHlwZTIvQmFzZU ZvbnQvQUFB WDFUB2SkcIPzR7XV NJAgK0dSIG TzG8suIH79mJZ5EH yfBS7HLJYH fTU3WK0NbiVeDVd5 A7GiM0lcoF Z9QWnRXA5mECtfX9 JkZXJpbmcg ZTwhVM38gVJ2KUPz A2BmdGqdqG GcmGYvIj4dQHrgPY 0Ev756PXJc M0VomOAosrXqTrXq IFINCiAgL0 XELDEoONLrU5jtES p5XPUdMNMg NSBbMzUwXSBdDQo+ Kq7UNT3bp1 TxMHslTNUrWZ1thl 0KPDwNCiAg R2J0iJXfIn7xgT8X qLZ6iQQtS2 U4hZDhE0Utx2LVx4 80X5GOSABT SqeFfdoprM7SacMg TApyRq1CTL YmsPf1rW3SAPhgQJ 1BDZApOY0c RA95Mq7rmLRmSnBw BWPqXu7JFs WvZ6GmRO6qN96nED AzMSAwIFIN Cj4+DQplbmRvYmoN NrE3HQPsg0 GiGEosKUw3XVU8QY ZbNcd2SZW6 PBFrMZYrSQW1CUN1 SiH4MYmxNd Z9SZU7LWDyDwCuYw CqLLW9BOX0 PTKvSch0KDNmDjHr NrcnNxj1IT Z1NzI7GHCdJBP5YH R8DiD4EFSi EJY2BGV3LdP7APIv BHR3DWF6Fd McJspfOjo7BDC5II PBEaR5AXS0 HSQtOZY2LXUjIJQr YmQ7HZJ8Ok V2MfUkQeBiVBQ7Va A7DQEuOwx3 IDcyMiAyNzggNTAw OWA1AzX8RD WjPSRdIQnbNhS4Il hjWqY4CMr0 IBQ9BaCaHoE3COOp DFM4PfEzGt M1UEo8NBJ0EfotHf N9HBAoMYIX WxK3PBCeAgncKom2 TRH4IYD3FE LoMyYeNPJ9AgR0SL YgNTAwIDU1 KbV0ORXgFkz6GMX1 LyZ0AUGyVz TmHKJtSfM1WQKhEi IyIDgzMyA1 ZJVoPOK7TTS5MzN6 NTYgMzMzID RgVSQcElhhJRN1ZT OeZRI0RlAc KSYrTP5QTLOpJDTk MCAzMzQgMj BtLOZmAVI4MPNfIq UzWZs1CEI6 MFXdNoJfEVa7QKP5 NTAgNzUwID x7IPQ8ZFGoLjHiUM n7LVA7VGZm GuGbIHn6BYF0JZVa TxSwUGf1ZQ N6ONZfFyLmZVc2WT H0HZAqYsHu XBs0FCD6WRDoKJu6 NTAgNzUwID z4VPW1FCTpYdYtKO v6RFX8HLOa TrPwELz7LBJcWfrv BoAhCZG5Ar R3APFrVUI7DOV3Op AyNjAgNTU2 PCQdVzC8LwmnQklf ACL1BqF2UL RjVpBuXRimGzD7XX IgNDAwIDU0 OSAzMzMgMzMzIDMz RgUEXfI8Sr G9YtynVwSlZDWxAq AzMzMgMzY1 FFO2YaT0QcQpCHH9 MKeaYCK6LY ZeWvE9VJR5XeF6Yk wiMvD5JSQ7 BeN9JzjhAOUrNQQ8 ZgUmXmK3UB F6QhZ4JxarClG0OY I6IVHbHjon Ygg1HHA6HJM5LaKo YjNnENp1ET AYRin2TCQ7IgavHk z2CSw0MQH9 VWTsRpv4WMqyFgO4 MjIgNzIyID duSkK5BbtzUsM7KW KjSWK8GRRd ZIR6DJL6UaF1BJHx SYV3NYQ6Ml Q9NZetQXDqVXH3Mm A5ZOPqFJK5 OCU2QdCwCxaiDzw3 JHG2BBBiQm spZLJ1OB0KUHP5JL J2UyN9JBVi TFY7UHR2KpM8MPIi NPG1LRRtJE O7DXBgSDN4MDS7Dj A8QKAtHQQo UQX5WgO6KHCzQUDH OlUgCV9yzm 0KMzYgMCBvYmoNCj s7BCzrCB5D fUHaL8RviaEEIIUj sjoxpB9cTI xxEK0Sf975FoBsXJ 9BcmlhbCxJ lUPzzDNZZpNyY7Ld G6FasNS5IS ZhZ0IcVXVwN1a8DX ytDJ2BFGRb ZK40AX0rNPZHSyIl N1BaNEudWZ t4COgbNF5Eo176Du JveCBbMCAt MjEyIDEwMTUgOTA1 AR5MRXAqXW OusFhvZW8ccIArEQ 9TdGVtViAw DQo+Ur0WTZ5vd4Hr DQozNyAwIG 6wcy5YEDrUMmXnB9 C3rUUyKx5a oP1EiNQ7eHRyW4Qb dWVUeXBlL0 Rqv7AUt204V1GpsW RmRWs6HVjw An7OdnQcVXbgFk1M gP3JiwLlFE 6ky1QjqigHVvUjL6 YuvzP1C9re hgYsBA8ADLU4R6hx ciAyNTUNCi TtZ8dhXPJztgMdSU AwIFINCiAg U1GsrzOQQCHwrjfr eE1sAFU5IM ZcFj4TQj9GArImIR 6wzz3VArzg MCBvYmoNCltdDQpl bmRvYmoNCj JxBXGtXupAGvi7ZY boRT5Blx6q I3V8KWsyBYFSP4Nu fDDaOE7tZ8 GSQ8zcVCsjZt2ORs QwF2FjslFl ELhsD8RxHOH8OTPf As3ESVVxFC 9GMSAyOSAwIFINCi AgICAvRjIg MzQgMCBSDQogICAg I8KoNOD6GZ AgUj4+TTqsHW3GV9 ZlIOC1FMo4 ID4+JJldKQ4BlAPX P7NexHQsVM etI9EOVA8BUOX6DM 9MpBVwYY0J sTEAS3PfcPTpWg6v IWYkx8KbMv 0wL6AOJWSRVRQxIK wvVHlwZSAv PUn8V8T7CLOhD0ZV E038zCRokZ c8Dj4aM6GKGFjSHy AgPDwvVHlw JZJjTTx7E4S3RHEl K7HFV6TaJt SgxbZiE9P+PiAvUE RXSB4CKEGX KJc0C4Y8dVHqH1V5 cOkSjCC2TN 3RPU4DtPJjaQOsr7 4+PiANCiAg Q3WYG1XOZW3QXLd9 W7H8jJAmL9 D4rUyXhQU7KN2GAO 9MaWdodGVu Tu2fQUxiBUT+Pg0K Mj8AZdXuGU 5dez0YItabREKwZk fCPcl7Z9qy cql0aRYdQzH9F3X6 VsZ7qIDjSB 4ZU2D8aZNxCBC6HC RhdGE+Pg0K v3MwGDOfGCt2J8xc YWNrZXQgYm SyiD76P++7vycgaW R7Y6b7OFEY oYQyfMhDrqPfJ4lC SWS6p8C8NM c/Gk1AQXU3oQy7nP BtZXRhIHg6 xD0upPb3PfEvGO50 MDEnIHhtbG 1pZeb7T8Vma6FcTm 1oGi7qgYEc He5YNdZnHFT3rfYg KhNEHmX3fS iecuvoDDW0G5r1wD M9Ql62w1tw ruSgo0JxZfG5EWqb MDIvMjItcm PsFYO3qdBhsP6irn EtMx7OXZHk QHoyrnSqTyKOWm1V QdOiGU71Mv tqoU5vbFB+DQogIC AgICAgICAg ICAgICAgICAgICAg ICAgICAgIC AgICAgICAgICAgIC AgICAgICAg ICAgICAgICAgICAg ICAgICAgIC AgICAgICAgICAgIC AgICAgICAg ICAgICAgICAgICAg DQogICAgIC AgICAgICAgICAgIC AgICAgICAg ICAgICAgICAgICAg ICAgICAgIC AgICAgICAgICAgIC AgICAgICAg ICAgICAgICAgICAg ICAgICAgIC AgICAgICAgICAgIC AgICAgDQog ICAgICAgICAgICAg ICAgICAgIC AgICAgICAgICAgIC AgICAgICAg ICAgICAgICAgICAg ICAgICAgIC AgICAgICAgICAgIC AgICAgICAg ICAgICAgICAgICAg ICAgICAgIC AgDQogICAgICAgIC AgICAgICAg ICAgICAgICAgICAg ICAgICAgIC AgICAgICAgICAgIC AgICAgICAg ICAgICAgICAgICAg ICAgICAgIC AgICAgICAgICAgIC AgICAgICAg ICAgICAgDQogICAg ICAgICAgIC AgICAgICAgICAgIC AgICAgICAg ICAgICAgICAgICAg ICAgICAgIC AgICAgICAgICAgIC AgICAgICAg ICAgICAgICAgICAg ICAgICAgIC AgICAgICAgICAgDQ ogICAgICAg ICAgICAgICAgICAg ICAgICAgIC AgICAgICAgICAgIC AgICAgICAg ICAgICAgICAgICAg ICAgICAgIC AgICAgICAgICAgIC AgICAgICAg ICAgICAgICAgICAg ICAgDQogIC AgICAgICAgICAgIC AgICAgICAg ICAgICAgICAgICAg ICAgICAgIC AgICAgICAgICAgIC AgICAgICAg ICAgICAgICAgICAg ICAgICAgIC AgICAgICAgICAgIC AgICAgICAg DQogICAgICAgICAg ICAgICAgIC AgICAgICAgICAgIC AgICAgICAg ICAgICAgICAgICAg ICAgICAgIC AgICAgICAgICAgIC AgICAgICAg ICAgICAgICAgICAg ICAgICAgIC AgICAgDQogICAgIC AgICAgICAg ICAgICAgICAgICAg ICAgICAgIC AgICAgICAgICAgIC AgICAgICAg ICAgICAgICAgICAg ICAgICAgIC AgICAgICAgICAgIC AgICAgICAg ICAgICAgICAgDQog ICAgICAgIC AgICAgICAgICAgIC AgICAgICAg ICAgICAgICAgICAg ICAgICAgIC AgICAgICAgICAgIC AgICAgICAg ICAgICAgICAgICAg ICAgICAgIC AgICAgICAgICAgIC VkHBj4I2nd KRIeCSNiEY5mTMb9 Jz8+DQoNCm CnDKY8pnOctF7ZHE 9jc1GeQJle GZBrb9RtHTp6LV2O ICAvVHlwZS 0QIWbtts7HFBPmVP KokMCYi3ve XnJgJVD7LDUgTybh BR3UEOBvN9 lkcyBbIDUgMCBSID cgMCBSIDkg MCBSIDExIDAgUiAx MyAwIFIgMT XuWPZWUBA4UUJaYf AxOSAwIFIg MjEgMCBSIDIzIDAg UiBdDQogIC 4Hd5SyxBMeBB7WJm 9DKzZpRL8s si8VLLRrEQSzLicU Umz3PGgxHC 9UoNIzlWG2LLKeAR QSBzEvU4qp y0KqCLZjHZGEFRss CM8Gg7MekG A2DQo+Pn3CZZ3lp3 JnPYu5YIBq VY6qdi4SMAfBHcJe N1ExjClgSR Q7zD6xokfqAShmAQ 1JRVN4XGmk EREcVCGaN8nPQySs IDcxOSBudW ceMI2OZiThR1Noqx YbgXJ6RRVc TDNQAbHuE93woWYo NDIgMCBSDQ o+Av6VHO1rk5OiLG r4AkFvBV8b tn5CTGkIXsJjS6Yz gUotCM6zSU zkDQXtv16lXE1JHX AvRGVzdCBb KJarVDXKNK0OPWay MCAzNTIgbn VxwRYlXLrfDN0QWI JlbnQgNDAg TRIKWMsvUC0QxoS4 IDQxIDAgUg 9CUKEhCuP1qXX0Zi AwIFINCj4+ DQplbmRvYmoNCjQz VNRzh6VrJI x1CG5NAKRtVNn5yL DkKTbqtI3r sLtOSoZoK4Cmx5Es WyAxMSAwIF UvQ2jYGrDjONY6NW WzsFgmDK9T AlNlG6YozgXnvLP6 MCAwIFINCi LlX0SpNQXyABHbUU LCMYdhGE7Z GEm7OGE3CQBgYd3Y Tl1WUkEaSG 5vbv0VUTIvCKFuRg yBAex5ZVsb RF3ZkRPkWNsQILDm gxiwI2LmwW JjpKpPRxVhM5Wia1 QgWyAxMSAw DBFvR9mFAjCdCWF3 OSBudWxsIF 1UZgEkQ5DuloMgtG Q1FWYmKYYW HfPfK4WcFSRdNVUr MCBSDQogIC 5FEMv6JPP7PGQxNg 9WUr7VHnIt YD3zra4PGHCtKAQr YclBYrt4BX htPU4ThHMzPDbQYH KxF3UtQHeu w7KjvzemDSiwDU6L NOR1VObcUA VbQQUEBW3QMQmkFF AzNzUgbnVs qZPbAUseDH9JHKKy bnQgNDAgMC ABOLncYT2KerC2CG J0ACZcLj9V APAaFpX6gNX5DhRz IFINCj4+DQ ywszVfTraFVkK4TM Fxk1RyDMu4 JA4MADNsYBf2zKPa LsCtxVn2JQ xje4RfryhtLWtpQR 2NDRI8ULbf RJCwQZVRGN1JEAby MCAyNzkgbn IduTMcXBszXV7TNV JlbnQgNDAg BNCLFPgqSL5DtjD8 RKY0WUIsEr 8SBs2FTpRqNM9ejy 0KNDcgMCBv UmbPHmb1BKaqVE1V sZBfG4YagY Ztk2kHYwQfD0TDZV Q4INVyVu9G ICAvTmFtZXMgPDwv MP5qGIVwBK EAbCqvdhJ1KV8EIX 5rknNkQN8H SqBtFj8gHs7AXkVn P5RiO6FeCP TwNSFODHixHN9ONC wdIB6lUY0J y5PQlHDcuW2kwh2P ICAvTGFuZy zked9OQebfY0M1yP luZXMgNDAg GYPOHBqjRK3VCKSp KTX2IQLiLH HyQKNADxVdX87qQO 9RB8Bih23w LwS3GMIkBnJyGHvc SF75zMthwn VcdFFouYjvYG1UMj 4+DQplbmRv YmoNCnhyZWYNCjAg NDgNCjAwMD QdHNHyRIPiEjC1Ne CtIv3TFIRb MDAwMDAxNyAwMDAw MCBuDQowMD TpVXH9MET3SHWgDY UlHG4AUqLy NCMwZHH8CRXwIPPi UMGwvo6WNR NtJVNxZZT3JnIgVJ AwMCBuDQow EFQbLRR1WzI7URWr NXSdCP1FAs UeDYHqHPX6AhJqLG DaQIUwju2L CWGhBZEmHbR9ATDa MDAwMCBuDQ zdWYAjEGX1NGi5RQ KwFMMdMH8C XiLbHOTnFYt6DVRn MDAwMDAgbg 0KMDAwMDAwODkwNS AwMDAwMCBu DQowMDAwMDExODM5 IDAwMDAwIG 4NCjAwMDAwMTIwND UgMDAwMDAg oi7AKICxODDvWPE5 OCAwMDAwMC FyBMnrKDKfQOR2KZ R7PDNpRCFf MT5IUaGxLLSjGMQ1 ODkgMDAwMD Ajvg7CMOFuKRLnSg n3BNAhJRZi MCBuDQowMDAwMDIw XNS2EVHgUD QuXT0TYsBiXVPjGf Z6AzQjOMAw IPFbdc4FYITvTRVl MzMxMyAwMD AwMCBuDQowMDAwMD KaYDJ5SXMt TBSuFJ8VTbZcZZRt SdD6QNSyIE JgHCQmmb5ENNXyED KxOal0JxNz MDAwMCBuDQowMDAw BDB3GChhWA DkXNZhVZ2EFsFdKT XpGcf6CKps EXPdMJThum8EBISd TJLbUOe4Zm AwMDAwMCBuDQowMD UcTZF5LQA9 SZWmAVMxPC4EKxLt MDAwMjkxND uhZEPjXTZqfn6LAZ AwMDAzMDEw NyAwMDAwMCBuDQow MDAwMDMwMz M4CAQaYKFsMU3ITg AwMDAwMzA0 OWwfRQSiNYBsbk1U BJNmUAN1FI t4QzCwKUMsOBAqVV owMDAwMDQy MUkpXVRbSSUiVW3Y CjAwMDAwND IzOTkgMDAwMDAgbg 9IZTOcNFM3 MjYzOCAwMDAwMCBu DQowMDAwMD IeElr5LOIrABSwTV 4NCjAwMDAw EDR2EhhvCANmLDCm lk2VYKIfLA T7SyvzGfQcHYDaYF BuDQowMDAw TKO5PKu1NXOlLHZe ZN8OSwYdWE IdOSW3VOBbWIYpDL Eprb3JPHRa TRP7NdQqJXKfDIQs MCBuDQowMD FtIAG3KOwgOROpSR VcXX6PHnGl MDAwNDYxOTYgMDAw HTMyjq9FWW HmHLI6MnNzVPBpDN AwMCBuDQow RBFdTFS6ODWaHROf OKHpOB4AFw TrNQMrHBG9FBzpLJ EsRHMdxk3P AVUuMCC4WfkzLGVk MDAwMCBuDQ miDFLdEQT1PWPkCO TeKQSySF0J CnRyYWlsZXINCjw8 ISygT2j3WT U6MI2HA2Vuv9JoUA cgMCBSDQov WV5hmsEpOTZrOm3S T7dGYtbbBd SgNdZlMItjPmz4K4 I7KbksJdH9 FkF4UZLoXKVkSm3y DMEiAUP0ZF TiQ1CoSQpmVgVkKU NmYTQyMDcw QwR3IUFxLoAxSY3Y Pa9GPqD9SW A7yMTdWn9MDPfjVZ QWCzGjIO6E DQo= ID Date Data Source [id number] 01/17/2020 11:46:00 AM EDT [facility] Name Value Range Interpretation Description Data Sup porting Code Source(s) Document(s ) CF EXPANDED NEGATIVE [facility] .. EXPANDED CYSTIC F IBROSIS PANEL .. SOURCE: Carolynn Anderson RESULTS: + + --+ + Disease Results Interpretation + + --+ + Cystic Negative Negative for all variants Fibrosis analyzed + + + +COMME NTS ON RESULTS: + + +-------- + + Disease Gene(s) Varian t RICH # + + +-------- + + Cystic CFTR N/A [id number] Fibrosis Link to [facility] [email or web address] [email or web address] + + +-------- + + Interpretation: This negative result reduces, but does not el iminate the chance of this individual being a carrier of cystic fibrosis. The residual risk of being a carrier is described in the table below. In deanne viduals with a clinical suspicion of disease, this negative result does not e xclude a diagnosis of cystic fibrosis and additional testing may be recommende d. It is possible that this patient has a pathogenic variant in CFTR that is not detected by this targeted testing. Genetic counseling is available to discuss the implications of these results. Diseas e Description: Cystic fibros is (CF) is an autosomal recessive condition caused by two pathogenic CF-caus ing variants (one affecting each allele) in the CFTR gene. CF is a clinicall y variable multi-system disorder which may include obstructive lung disea se, pancreatic insufficiency and malnutrition, recurrent sinusitis and bronchiectasis, and male infertility (Zulema 2008, Pee 2017). Congenital absence of the vas deferens (CAVD), an autosomal recessive condition caused by two pathogenic CFTR variants in trans, is de fined as bilateral or unilateral hypoplasia or aplasia of the vas deferen s leading to male infertility (Pee 2017). CFTR-related disorders, which hav e been reported in individuals with 1 or 2 identified pathogenic CFTR v ariants, can present in isolation at any age and include CAVD, chronic or acu te recurrent pancreatitis, and disseminated bronchiectasis (Annikaia 20 07, Riaz 2011, Elinor 2012). Additionally, pancreatitis has been repo rted in individuals who harbor multiple pathogenic variants or risk all eles in CFTR and other genes (Esteban 2011, Rima 2014). + +TEST INFORMATION: Expanded Cystic Fibrosis is a panel of >200 pathogenic / likely pathogenic variants reported to cause Cy stic Fibrosis. This panel includes the 23 pathogenic variants recommended for carrier screening by ACOG and ACMG (G85E, R117H, 621+1G>T, 711+1G>T, R334W, R3 47P, A455E, tofzlN204, twfqiU274, 1717-1G>A, G542X, G551D, R553X, R560T, 1898+1G>A , 2184delA, 2789+5G>A, 3120+1G>A, U6327O, 3659delC, 3849+10kbC>T, B1344V, P9353X). The remaining variants on the panel have been reported to cause Cystic Fibros is frequently in the literature. The IVS9 polyT region (5T, 7T, 9T) is only ex amined as a reflex to a R117H positive result.METHODOLOGY: Genomic DNA is ex tracted from peripheral blood or oral rinse. Library preparation is performed usin g an amplicon based approach followed by sequencing on the MiSeq([employer]). Data is subsequently processed with a laboratory developed informatics alg [facility] to determine the genotype status of the pre-defined list of variants. Re ported variants include only known disease-associated pathogenic and likely pathogenic variants. Variants that are classified as benign, likely benign or variants of uncertain clinical significance are not reported but ar e available upon request. The sequencing methodology cannot detect chromosoma l aberrations such as large deletions/duplications and inversions, o r variants that are present in a small fraction of cells (mosaicism). In additi on, the presence of private genetic variants within the region covered b y primers and/or probes and the occurrence of pseudogenes and other homologous seq uences may interfere with variant detection. Potential inaccurate results may be obtained due to bone marrow transplantation, recent blood transfusio n, presence of leukemia or lymphoma, suboptimal sample quality, and labor atory error. All pathogenic and likely pathogenic variants and low coverage regions are confirmed or covered using Logan sequencing.REFERENCES: 1. Jaki Arroyo et al. Extensive molecular analysis of patients bearing CFTR-related di sorders. The Journal Of Molecular Diagnostics : Jmd. 2011 14(1):81-9. 2. Riaz C et al. Recommendations for the classification of diseases a s CFTR-related disorders. Journal Of Cystic Fibrosis : Official Journal Of The Cystic Fibrosis Society. 2010Jan 31 Suppl 2:S86-102. 3. James de la paz A et al. Molecular characterization of the cystic fibrosis transmembran e conductance regulator gene in congenital absence of the vas deferens. Genetics In Medicine : Official Journal Of The [place] College Of Medical Genetics. 2006 9(3):163-72. 4. Rima J et al. Mechanisms of CFTR functional variants that impair regulated bicarbonate permeation and inc rease risk for pancreatitis but not for cystic fibrosis. P Lo S Gene tics. 2014 Feb 10(7):j8886827. 5. Zulema SM et al. Clinical practice an d genetic counseling for cystic fibrosis and CFTR-related disord ers. Genetics In Medicine : Official Journal Of The [place] College Of Medic al Genetics. 2007 10(12):851-68. 6. Pee T, Lb SG, Bert BA, et al. Cystic Fibrosis and Congenital Absence of the Vas Deferens. Gene Reviews. 2000Nov 16 [Updated 2017 Sep 25]. GeneReviews - CF and CAVD https://www.ncbi.nlm.nih.gov/books/NBK12 50/ 7. Esteban Palm et al. Combined bicarbonate conductance-impairin g variants in CFTR and SPINK1 variants are associated with chronic cameron creatitis in patients without cystic fibrosis. Gastroenterology. Aug;140(1):162-71.DISEASE INFORMATION AND VARIANTS TESTED:+ +--------+ + + +--------- -+ Disease Gene Ethnicity Det ection Carrier Residual Rate Risk Risk + +--------+ + + + + Cystic CFTR 77% 1 in 61 1 in 262 Fibrosis Cameroonian + +--------+ + + + + Cystic CFTR Ashkenazi 99% 1 in 24 1 in 2301 Fibrosis Shinto + +--------+ + + + + Cystic CFTR 55% 1 in 94 1 in 205 Fibrosis + +--------+ + + + + Cystic CFTR 92% 1 in 25 1 in 301 Fibrosis + +--------+ + + + + Cystic CFTR 83% 1 in 58 1 in 336 Fibrosis + +--------+ + + + + c.1393-1G>A, p.Eni299dx, p.Yut3110Twzw sX17, p.Nhq6765ph, p.Hxh2Cdt, p.Dot433Hkt (R334W), p.Fwr717Qjk, p.Th f618Vmw, p.Gco923Bpu, p.Cxs636ug, p.Wqz532Q, p.Yfg864Csd (R3 47H), p.Vvi043Ixw (R347P), p.Nms334Ukp, p.Suk781fm, p.Ser4X, c.11 16+1G>A, p.Cjs362ra, p.Gln39X, p.Njg192al, p.Mbx663hr, p.Wmt119O , c. 1209+1G>A, p.Oqk096Y , p.Mbt728iw, p.Mlc636mu, p.Ean703Izl (A455E), p.Al a46Asp, p.Tso444F, p.Mvm441A, p.Wdm993Dqn, p.Ozm757wm, p.Efy477Hma, p.Ymx358M , p.Kwd808Pfd , p.Mqt991X (Q493X), p.Emy427ug, p.Ile50 6Ser , p.Out019cnl (cxvytX793), p.Ulm846rqr (fhfnnY334), p.Ced671N , p.Cty912Jar (V520F), p.Nyz094W , p.Mul857Y , c.1585-1G>A, c.1585-8G>A, p.Rbx242Znz (G542X), p.Kys766Zqu (S549R A>C), p.Erc883Lns (S549N), p.Ser54 9Ile, p.Tjy594Pze (S549R T>G), c.165-1G>A, p.Wue409Abe , p.Jzh138Skb (G551 D), p.Pjc883C , p.Afe446Myd (R553X), p.Tej30Drd , p.Vyo132Mlh, p.Ipn568 Kim, p.Vzi533Vzc (R560T), c.1679+1G>C, c.1679+1.6kbA>G, c.1680-1G>A, p. Tdc348Ksk , p.Kws750uy, p.Hgk646Hjj, p.Ooq080zu, p.Tzj99ee, p.Jjg947B , c.1 766+1G>A, c.1766+1G>C, c.1766+1G>T, c.1766+3A>G, c.1766+5G>T, p.Glu60X (E60X), p.Mwh998_Dys216cja, p.Qlm005kx, p.Ser6 41fs, p.Htj112aq, p.Sur836pe, p.Qkv900hl, p.Kzj71Btx, p.Kwl678L , p .Rdn211er (c.2183 AA>G), p.Rss231vg, p.Jjx832cm (c.2184delA), p .Qqd592S , p.Oxx837H , p.Cue981UjawvN3, p.Ezz349U, p.Buk296gj , p.Arg75X, p.Utz848S , p.Dvi797K, p.Jhi271T, p.Yhk112fp, p.Ecd598ml, p .Zqs390if, p.Azs399Q, c.2490+1G>A, p.Qqe912S, p.Kfo507C , p.Ova05Bbe (G85E), p.Hbl636S , p.Bzh659S, p.Xkc435jt, p.Yli84lw (394d elTT), c.2657+5G>A, c.2658-1G>C, p.Qyn222U , c.273+1G>A, c. 273+3A>C, p.Wha097F , p.Ofh853J , p.Jre993H , p.Vpy41Klc, c.274-1 G>A , p.Glu92X , p.Rva700wd, p.Rqv246Awe, p.Sqy790Zte, p.Jhh947us, p.Hnq707Dif, p.Gln98X, c.2988+1G>A, c.2988G>A, c.2989-1G>A, p.Esk8248zn, p.Hkj1944px, p.Ofc6620_Dcp2747kip, p.Qzp5399U , p.Lfk970zg, c.3140-26A>G, p.Epq0873Gml, c.3181G>C, p.Evr6343Eai , p.Foi0107Jps, p.Hhr4450Mju , p.Rxw5642Jzu, p.Dvn4062Nxo, p.Gbi0023Vrx, p.Rgd186zo, p.Scu9660W , p.Squ6027Itk (I9249N C>A), p.Tyr10 92Ter (V2265Z C>G), p.Fuz522Lbw, p.Ndz2365Xsi, p.Toa1620F, p.Asp11 52His (D7138I), p.Aec4032Q , p.Ioc8569Jgc (S6375D), p.Etm240Qjh, p. Kyj755Lvn (R117H), p.Evm6101yi (c.6479delC), p.Dqc7677ae, p.Ieh3770I , p.Pib4857nb, p.Fjt1070R , p.Wnq6253H , p.Muc0374qw, p.Pes979C (Y122X), c.369 1delT, p.Xav9020B , c.3717+03741B>T, c.3717+4A>G, c.3718-1G> A, p.Cjo7933Eat, p.Cqp9692qc, p.Ana7798Buz, p.Qrc9639Jdq, p.Pzl5794Q , p.Mhi1295qu (c.3905insT), p.Pqe0148Miv (P3001H), c.3873+1G>A, c.38 73+2T>C, p.Mvf2714qy, p.Ydl7589nr, p.Czo3487sb, p.Xig7993Mui (Q6314Z), p.Ooh4020P, c.3964-78_4242+577del, p.Xhs5054Njm, p .Nrt3552M , p.Gyk3944Z , p.Ntr5079C , p.Jwc229tc, c.4242+1G>A, p.Mxs6047th , p.Xlx3553yl, p.Kqm020qn, c.489+1G>T, p.Xsu379zx, p.Yho374Msp, p.Nnq88ey (CFTRdele2,3), p.Hcu341lq, c.579+1G>T, c.579+3A>G, c.57 9+5G>A, c.580-1G>T, p.Jqr098Bik, p.Fmr686Cvo , p.Inc281Ney, p.Ghg543R , p.Gfy081ew, p.Elj831ws, p.Bsj919nc, p.Fyt661B , p.Gln30X , p.P db819vnr , p.Zqv656gh (1078delT), p.Gkb044P , IVS9-5T, IVS9-7T, IVS9-9T + + Kojo CHAHAL M.D. [facility], EX. [id number] This report was electronically signed . FINAL REPORT ID Date Data Source [id number] 01/13/2020 12:21:00 PM EDT [facility] Name Value Range Interpretation Description Data Sup porting Code Source(s) Document(s ) SPINAL NEGATIVE [facility] ATROPHY Health CARRIER (SMA) .. SPINAL MUSCULAR ATROPH Y CARRIER TESTING .. SOURCE: Peripheral Bl oodKEY RESULTS: + + --+ + Disease Results Interpretation + + --+ + Spinal SMN1: 3 copies Reduced carrier risk for Muscular Spinal Muscular Atrophy Atrophy + + + +COMME NTS ON RESULTS: + + +-------- + + Disease Gene(s) Mutatio ns RICH # + + +-------- + + Spinal SMN1 3 copies [id number] Muscular Link to RICH Atrophy [email or web address] + + +-------- + + Interpretation: This individual has at least 3 copies of SMN1 and therefore has a markedly reduced risk of being a carrier of SMA. Disease Description: Spinal muscular atrophy (SMA) is an autosomal recessive disease with a carrier frequency of 1/25-1/50 in the general population, and is the most common inherited lethal disease in children. The genetic defect in S MA occurs in the survival motor neuron gene (SMN1) located on chromo some 5q13, and most often the contributory mutation causes a deletion o f SMN1. SMA leads to anterior horn cell degeneration in the spinal cord, causing proximal muscle weakness and atrophy. SMA is subdivided into four types, based on the age of onset and clinical severity. + +TEST INFORMATION: This assay assesses the number of copies of exon 8 in the SMN1 gene (Gene ID: [id number]). Individuals with o ne copy of SMN1 are carriers of SMA. Individuals with 2 copies of SMN1 have a significantly reduced risk of being carriers of SMA. This reduced risk v jean carlos from approximately 1 in 630 for Caucasians, 1 in 628 for Asians, 1 i n 121 for Americans, 1 in 350 for Ashkenazi Jews, and 1 in 1,000 for Hispa ritesh individuals. Individuals with 3 copies of SMN1 have a markedly reduced r isk of being carriers of SMA. This test cannot detect carriers who have two copies of SMN1 in cis (on one chromosome) and zero copies of SMN1 on the other chr omosome. Approximately 2% of individuals affected with SMA have a de vero mutatio n in SMN1 that would not be detected through carrier screening. Approxima tely 5% of individuals affected with SMA are compound heterozygotes, exhibiting t he exon 8 deletion on one allele and a single base substitution on the other al derian. This test cannot identify carriers of single base substitutions in the SMN1 gene. Rare false negative and positive results may occur in patients with p rivate genetic variants, blood transfusions, and bone marrow transplantation.METHO DOLOGY: Genomic DNA was extracted from whole blood or oral rinse. Amplicons from exon 8 of the SMN1 gene were amplified in a real time polymerase chain reac tion (PCR), along with an endogenous reference control and a copy number tristan brator control. The copy number was derived using [employer](TM) software ([employer], [place], [place]).REFERENCES: 1. Kirsty Hu, Ruddy Canales. Spinal muscular atrophy: molecular genetics and diagnostics. Expert Rev. Mo l. Diagn. 2004;4(1):15-29. 2. Kirsty S. et al. Genetic risk assessment in carrier testing for spinal muscular atrophy. Am J Med Shirley. 2002;110(4):301-7. 3. Kirsty S. et al. Genetic testing and risk assessment for spinal muscular atrophy (SMA). Hum Shirley. 2002;111(6):477-500. 4. Shilpi Jimenez et al. A Simple Multiplex Real-Time PCR Methodology for th e SMN1 Gene Copy Number Quantification. Shirley Test Mol Biomarkers 2009;13(1):3 7-42. 5. Prior TW. Carrier screening for spinal muscle atrophy. Shirley Med . 2008;10(11):1-3. 6. Prior TW., et al. Technical standards and guidelines for spinal muscular atrophy testing. Shirley Med. 2011 Margarito;13(7):686-94. 7. Alicia H. et al. Best practice guidelines for molecular analysi s in spinal muscular atrophy. Eur J Hum Shirley 2001;9:484-491.DISEASE INFORMATI ON AND MUTATIONS TESTED:+ +--------+ + + +--------- -+ Disease Gene Ethnicity Det ection Carrier Residual Rate Risk Risk + +--------+ + + + + Spinal SMN1 71% 1 in 66 1 in 121 Muscular Cameroonian (2 Atrophy copies) + +--------+ + + + + Spinal SMN1 Ashkenazi 90% 1 in 41 1 in 350 Muscular Shinto (2 Atrophy copies) + +--------+ + + + + Spinal SMN1 93% 1 in 53 1 in 628 Muscular (2 Atrophy copies) + +--------+ + + + + Spinal SMN1 95% 1 in 35 1 in 632 Muscular (2 Atrophy copies) + +--------+ + + + + Spinal SMN1 91% 1 in 117 1 in 1061 Muscular (2 Atrophy copies) + +--------+ + + + + Exon8 + + Kojo CHAHAL M.D. PATHOLOGIST, EX. [id number] This report was electronically signed . FINAL REPORT ID Date Data Source [id number] 01/12/2020 02:29:00 PM EDT [facility] Name Value Range Interpretation Code Description Data Loyda rce(s) Supporting Document(s ) FRAGILE X NORMAL [facility] [employer] [facility] .. FRAGILE X RAFI ER TESTING .. 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 Disease Description: Fragile X Syndrome is the most common cause of inherited intellectual disability and is caused (in >99% of cases) by the repetition of trinucleotide CGG sequences in the 5 untranslated region of the Fragile X Mental Retardation 1 (FMR1) gene. The number of CGG repeats is v ariable within individuals, and may vary from generation to generation. The spec ific number is associated with a variety of clinical disorders. Expansions in the full mutation range are associated with hypermethylation of the FMR1 gene and loss of gene activity, leading to Fragile X Syndrome, ch aracterized by variable degrees of mental retardation and autistic-like behaviors. Individuals with premutations are at risk for Fragile X-associated Tremor/Ataxia Sydrome (FXTAS), the penetrance of which increases with age. Women with premutations have an increased risk of premature ovarian fail ure and having children with Fragile X Syndrome. Intermediate / [place] Zone cases have no appreciable risk of transmitting Fragile X Syndrome to th eir offspring. Inheritance is X-linked, and all major ethnic groups ar e susceptible to FMR1 CGG expansion. + +TEST INFORMATION: Interpretation is based on the number of trinucleotide CGG repeats: Negative: < 45 repeats, Inte rmediate/L[place] Zone: 45-54 repeats, Premutation: 55-200 repeats, and Full mu tation: > 200 repeats. Reflex testing with methylation analysis will be done to confirm suspected full mutations. The lower limit of detection for a full mutation mosaic is 2%. Rare false negatives may occur in the setting of donald ne marrow transplantation, blood transfusion, genetic variants such as point mutations and deletions, and suboptimal sample quality.METHODOLOGY: Genomic DNA was extracted from whole blood or oral rinse. Proprietary primers w ith a fluorophore label are used for DNA amplification of the FMR1 gene by polyme rase chain reaction ([employer](TM) FMR1, P/N AD-FMR1, [facility]). The CGG repeat profile of the amplicons are separat ed by capillary electrophoresis using an ELIER 3730 ([employer], [place], [place]REFERENCES: 1. Alireza Hu et al. A Novel FMR1 PCR Method for the Routine Detection of Low Abundance Expanded Alleles and Full Mutati ons in Fragile X Syndrome. Clin Chem 2010;56(3):400-409. 2. Neda TORREZ, et al. ACMG Standards and Guidelines for fragile X testing: a revision to the disease-specific supplements to the Standards and Guidelines for Clinical Genetics Laboratories of the [place] [employer] Genetics and Genomics, 2013 Edition Kojo CHAHAL M.D. [facility], EX. [id number] This report was electronically signed. FINAL REPORT ID Date Data Source [id number] 01/12/2020 11:07:00 AM EDT [facility] Name Value Range Interpretation Description Data Sup porting Code Source(s) Document(s ) HGB A2 2.2 % 1.5-3.7 [facility] HEMOGLOBIN A 97.8 % 96.0-99.0 [facility] HEMOGLOBIN F 0.0 % 0.0-2.0 [facility] HEMOGLOBIN S 0.0 % 0.0 (Not The Detected) [facility] HEMOGLOBIN C 0.0 % 0.0 (Not The Detected) [facility] HGB, OTHER 0.0 % 0.0 (Not The Detected) [facility] INTERPRETATION: Normal Hemoglobin Patter n ID Date Data Source [id number] 01/11/2020 09:00:00 AM EDT [facility] Name Value Range Interpretation Description Data Sup porting Code Source(s) Document(s ) HCG., 24021.0 See Below [facility] QUANT m[IU]/mL [facility] HCG, SERUM, QUANT Wee ks of Gestation Range (mIU/mL) 3 5.8-71 .2 4 9.5-750.0 5 217.0-7,138.0 6 158.0-31,795.0 7 3,697.0-163,563.0 8 32,065.0-149,571.0 9 63,803.0-15 1,410.0 10 46,509.0-186,977.0 12 27,832.0-210,612.0 14 13,950.0- 62,530.0 15 12,039.0-70,971.0 16 9,040.0-56,451.0 17 8,175.0-5 5,868.0 18 8,099.0-58,176.0 Non - < or=5.2 Postmenopausal < or=7.0 NOT E: Ranges are to be used as guidelines only. Very low results must be interprete d along with other clinical information as indicators of . ID Date Data Source [id number] 01/08/2020 04:25:30 PM EDT [facility] Reason for Visit and Comments: Follow -up for: [92] - Bleeding Test [240] Influenza Vaccine [237]Vitals ( Last Filed):BP 113/78 (Orthostatic Site : Arm - Left, Orthostatic Pos- ition : Sitting, Orthostatic Cuff Size : Large Adult) P- uls e 86 Temp 98.4 F (36.9 C) (Oral) Wt 161 lb (73 k- g) LMP (Approximate) SpO2 98% BMI 24.12 - kg/a3DelabSunitha Soriano RN 01/08/2020 4:25 PM SignedI have identified this patient to be Janie savage, -1980.Chief ComplaintPatient presents with? Follow-up for: Bleeding ? Test? Influenza VaccineVitals: 01/06/20 1325BP: 113/78Orthostatic Site : Arm - LeftOrthostatic Position : SittingOrthostatic Cuff Size : Large Zbigniew ltPulse: 86Temp: 98.4 F (36.9 C)TempSrc: OralSpO2: 98%Weight: 161 lb (73 kg)Futur e AppointmentsDate Time Provider Department [place]01/06/2020 1:45 PM Buzz Villalba M D [facility]01/10/2020 9:00 AM Ezekiel Mendoza MD [facility] Tejeda Omar, MA 01/08/2020 4:25 PM SignedI have identified this patient to be Janie savage, -1980.Results for orders placed or performed in visit on 01/06/20PREGNAN CY (URINE) IN HOUSEResult Value Ref Range TEST, URINE positive neg INTER NAL CONTROL VALID- URINE yesBP 113/78 (Orthostatic Site : Arm - Left, O rthostatic Position : Sitting,Orthostatic Cuff Size : Large Adult) | Pulse 86 | Temp 98.4 F (36.9 C)(Oral) | Wt 161 lb (73 kg) | LMP 11/25/2019 (Approximate) | S pO2 98% | BMI24.12 kg/mMental Health Screenings and AssessmentsPHQ-2: Over th e the past two weeks, how often have you been bothered by thefollowing...?PHQ-2 Total: 0PHQ-9:Over the past two weeks, how often have you been bothered by thefollowing.. .? (Colt las ultimas 2 semanas, con que frecuencia le hanmolestado los siguiente s problemas...?)1. Little interest or pleasure doing things (Tener poco intere s o disfrutarpoco de hacer cosas): Not at all2. Feeling down, depressed, or hopele ss (Sentirse desanimado/a, deprimido/a, osin ning): Not at allGAD-7: Over the e past two weeks, how often have you been bothered by thefollowing...?1. Feeling n ervous, anxious, or on edge: Not at all2. Not being able to stop or control worrying: Not at all3. Worrying too much about different things: Not at all4. Trouble r elaxing: Not at all5. Being so restless that it s hard to sit still: Not at all6. Bec oming easily annoyed or irritable: Not at all7. Feeling afraid as if something awf ul might happen: Not at allGAD-7 Total: 0Bertha Aracil at rust today to have blood drawn. 1 Q Gold, 1Urinalysis, 1 Urine culture, 1 GC Chlamydia, 3 sst, 1 Lav, 2 pink, 1 almendarez tubessent to [facility]. She tolerated the procedure well an d [facility].Charlie BROWN David, MD 01/08/2020 4:25 PM Signed This is an APSO-style note to improve EHR readability. Please scrol l downfor S/O portions ASSESSMENT/PLAN:1. test positive2. First trimeste r bleedingDesired . Reassuring that bleeding and pain mild and self-limited. Same-day sono (results below) and serial beta HCGs- reviewed ectopic precautions and o ther ED/RTC precautions- US PG UTER R-T IMG TRVG- HCG, QUANTITATIVE; Future- HCG, QU ANTITATIVE3. Encounter for supervision of other normal in first trimeste r- (URINE) IN HOUSE- US PG UTER R-T IMG TRVG- QUANTIFERON GOLD TB PLUS- CBC WITH DIFFERENTIAL AND PLATELETS- RUBELLA, IGG- HEP B SURFACE AG (HBSAG)- ABO GROUP ING AND RHO(D) TYPING- ANTIBODY SCREEN (INDIRECT KALYANI)- RPR- CULTURE, URINE- URINALYSIS (COMPLETE)- VARICELLA, IGG- LEAD, BLOOD (ADULT BIOREF ONLY)- 4TH GEN HIV T EST-IFH RECOMMENDED- GC/CHLAMYDIA, SWAB SPECIMEN (BIOREFERENCE ONLY)- HEPATITIS C ANTIBODY W/ REFLEX RT PCR- MEASLES, IGG4. Vitamin D deficiency- 25 HYDROXY VITAMIN DFollow-up Plan: Patient instructed to return to clinic for initial or sooner PRNFuture AppointmentsDate Time Provider Department [place]01/10/2020 9:0 0 AM Ezekiel Mendoza MD [facility] and answered all questions.Buzz Villalba MD I have identified Janie Mcneil, a 39 year old femaleChief ComplaintPatient presents with? Follow-up for: Bleeding? Test? Influe nza VaccineSUBJECTIVE:# Vagianl bleeding in .LMP 11/25/19, periods regular an d this was on time. No contraceptibve use.Desired . Historyo of pren term classical and deathfor [id number] HistoryGra ramya Para Term AB Living5 2 1 1 2 1SAB TAB Ectopic Molar Multiple Live Bir ths0 2 0 2# Outcome Date GA Lbr Dereje/2nd Weight Sex Delivery Anes PTL Lv5 Current 4 TAB 01/2018 SURGICAL3 Term 07/16/15 37w1d 6 lb 9.1 oz (2.98 kg) M CS-Classi elvia LIV2 TAB 2015 5w0d SURGICAL1 2001 4 lb 1 oz (1.843 kg) M CS-Unspec Y NDVaginal bleeding 11am today, passed blood clot, small.Previous night had mil d mid-suprapubic pain (rated 5/10), charecterized assharp.No injury.ROS: All systems reviewed and negative aside from as aboveOBJECTIVE:EXAM:Vitals: 01/06/20 132 5BP: 113/78Orthostatic Site : Arm - LeftOrthostatic Position : SittingOrthos tatic Cuff Size : Large AdultPulse: 86Temp: 98.4 F (36.9 C)TempSrc: OralSpO2: 98%W eight: 161 lb (73 kg)Patient s last menstrual period was 11/25/2019 (approximate).Wt R eadings from Last 3 Encounters:01/06/20 161 lb (73 kg)01/21/19 161 lb (73 kg)Body ma ss index is 24.12 kg/m.Physical ExamThe following portions of the patient s ivet t were reviewed in this encounterand updated as appropriate:Tobacco | Meds | Problems | Med Hx | Surg Hx | OB Status | Fam Hx | Soc HxReviewed recent labs/studies:Resul ts for orders placed or performed in visit on 01/06/20PREGNANCY (URINE) IN HOUSEResult Value Ref Range TEST, URINE positive neg INTERNAL CONTROL VALID- URI NE yesResults for orders placed or performed in visit on 01/06/20PREGNANCY (URINE) IN HOUSEResult Value Ref Range TEST, URINE positive neg INTER NAL CONTROL VALID- URINE yesQUANTIFERON GOLD TB PLUSResult Value Ref Range QUANTIFERON-TB GOLD NEGATIVE NEGATIVE NIL 0.06 IU/mL TB1 ANTIGEN-NIL VALUE 0.07 IU/ml TB2 ANTIGEN-NIL VALUE 0.00 IU/ml MITOGEN NIL 6.97 IU/mlHCG, QUANTIT ATIVEResult Value Ref Range HCG., QUANT 29,967.0 See Below m[IU]/mLCBC WITH DIFF ERENTIAL AND PLATELETSResult Value Ref Range WHITE BLOOD CELL (WBC) COUNT 8.31 4.00 - 10.10 x10(3)/uL RED BLOOD CELL (RBC) COUNT 4.93 3.58 - 5.19 x10(6)/uL HEMOGLOBIN 12 .8 11.0 - 15.5 g/dL HEMATOCRIT 39.7 31.5 - 44.8 % MCV 80.5 78.0 - 98.0 fL MCH 26.0 25.2 - 32.6 pg MCHC 32.2 31.0 - 34.7 g/dL RDW 16.0 (H) 12.0 - 15.5 % POLYS 58.9 37.1 - 78.1 % LYMPHOCYTES 26.7 13.7 - 50.9 % MONOCYTES 5.8 3.0 - 11.9 % EOSINOPHILS 7 .8 (H) 0.0 - 5.0 % BASOPHILS 0.4 0.0 - 1.0 % IMMATURE GRANULOCYTES 0.4 0.0 - 1.0 % PL ATELETS 269 140 - 425 x10(3)/uL MPV 11.2 8.6 - 12.1 fLRUBELLA, IGGResult Value Ref Ra nge RUBELLA ANTIBODIES, IGG 30.5 Immune >9.9 [IU]/mLHEP B SURFACE AG (HBSAG)Result Va lue Ref Range HEPATITIS B SURFACE ANTIGEN Non-Reactive Non-ReactiveABO GROUPING AN D RHO(D) TYPINGResult Value Ref Range ABO/RH TYPE A PosANTIBODY SCREEN (INDIRECT COOM BS)Result Value Ref Range AB.SCREEN/IND.KALYANI Negative NegativeRP RResult Value Ref Range RPR Non-Reactive Non-ReactiveCULTURE, URINE Specimen: Oth erResult Value Ref Range CULTURE, URINE NO GROWTH NO GROWTHURINALYSIS (COMPLETE)Res ult Value Ref Range SPECIFIC GRAVITY, UR (S.G.) 1.015 1.003 - 1.030 PH, UR 6.5 5. 0 - 8.0 PROTEIN, TOTAL, RANDOM URINE NEGATIVE NEGATIVE GLUCOSE, URINE, QUAL. NEGATIVE NEGATIVE KETONE, QUAL. NEGATIVE NEGATIVE UROBILINOGEN 0.2 0.2 - 1.0 mg/dL BILIRUB IN, URINE NEGATIVE NEGATIVE BLOOD, URINE NEGATIVE NEGATIVE NITRITE, UR (NI) NEGAT NAYANA NEGATIVE CRYSTALS NONE NONE WBC, URINE 0-4 0 - 4 /[HPF] RBC, URINE NONE SEEN NO NE SEEN /[HPF] CAST, RBC, URINE NONE SEEN 0 - 1 /[LPF] CAST, HYALINE, URINE 0-4 0 - 4 /[LPF] CAST, EPITHELIAL, URINE FEW NONE-FEW CAST, GRANULAR, URINE NONE SEEN 0 - 1 /[ LPF] BACTERIA, URINE NONE NONE-FEW CRYSTALS, OTHER, URINE NONE NONE /[HPF] LEUKOCYTE ESTERASE NEGATIVE NEGATIVE COLOR YELLOW YELLOW, STRAW, SONIA CHARACTER CLEAR NATASHA ARVARICELLA, IGGResult Value Ref Range VARICELLA ZOSTER, IGG 783.0 Immune>164.9 Epnnt9UJ GEN HIV TEST-IFH RECOMMENDEDResult Value Ref Range HIV 1/2 AB, EIA Non-Reac tive Non-ReactiveGC/CHLAMYDIA, SWAB SPECIMEN (BIOREFERENCE ONLY)Result Value Ref Rang e GC CULTURE ONLY ALT. TEST FFOEXAJRS14 HYDROXY VITAMIN DResult Value Ref Range 25-HYDROXYVITAMIN D 24.8 (L) 32.0 - 100.0 ng/mLHEPATITIS C ANTIBODY W/ REFLEX RT P CRResult Value Ref Range HEP C AB. S/CO RATIO <0.02 <0.80 HEPATITIS C ANTIBODY Non-Chester ctive Non-ReactiveMEASLES, IGGResult Value Ref Range RUBEOLA(MEASLES)AB. 186.0 Immu ne >16.4 AU/mLGC/CHLAMYDIA, APTIMA URINE (BIOREF)Result Value Ref Range Chlamydia , UR, RRNA NEGATIVE NEGATIVE GONORRHEA, UR, RRNA NEGATIVE NEGATIVERE: JANIE MCNEIL : 1980#[id number] SERVICE DATE: 01/06/2020FIRST TRIMESTER TRANSVAGINAL O BSTETRICAL ULTRASOUNDCLINICAL STATEMENT: For size and dates. Patient reports spotting .TECHNIQUE: High resolution real time transvaginal ultrasound examination wasp erformed.FINDINGS: There is a retroverted uterus measuring 8.4 x 6.6 x 6 cm. There is agestational sac maximally measuring 2.1 cm. There is a yolk sac measuring 2.8mm. A pole is not identified. On several images, there is mild complexsignal appr eciated within the gestational sac. Given history an inprogress cannot be definitively excluded. Follow up BETA HCG levels and repeatultrasound in 7-10 days time is recommended to assess for viability. Thecervix is intact. Free flu id is seen within the deep pelvis likely physiologicin nature. 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 The right ovary is not iden tified.IMPRESSION: RIGHT OVARY NOT IDENTIFIED. GESTATIONAL SAC WITH YOLK SA C WITHOUTFETAL POLE NOTED. FREE FLUID LIKELY PHYSIOLOGIC IN NATURE. PLEASE SEE ABOVE. FOLLOW UP BETA HCG LEVELS AND REPEAT ULTRASOUND IN 7-10 DAYS TIME RECOMMENDE D.Thank you for the courtesy of this referral.Electronically Signed -DSG: gr/ Private Line: [phone] For referring physician s use onlyElectronically Etelvina johns - Mahamed Padgett MD 01/08/20 15:02Mental Health Screenings Done & Reviewed:PHQ-2: Over the the past two weeks, how often have you been bothered by thefollowing...?PHQ -2 Total: 0PHQ-9:Over the past two weeks, how often have you been bothered by thefollo wing...? (Colt las ultimas 2 semanas, con que frecuencia le hanmolestado lo s siguientes problemas...?)1. Little interest or pleasure doing things (Tener poco int eres o disfrutarpoco de hacer cosas): Not at all2. Feeling down, depressed, or hopele ss (Sentirse desanimado/a, deprimido/a, osin ning): Not at allGAD-7: Over the th e past two weeks, how often have you been bothered by thefollowing...?1. Feeling n ervous, anxious, or on edge: Not at all2. Not being able to stop or control worrying: Not at all3. Worrying too much about different things: Not at all4. Trouble r elaxing: Not at all5. Being so restless that it s hard to sit still: Not at all6. Bec oming easily annoyed or irritable: Not at all7. Feeling afraid as if something awf ul might happen: Not at allGAD-7 Total: 0Primary Diagnosis:Z32.01 t est positive Other Diagnoses:O20.9 First trimester bleeding Z34. 81 Encounter for supervision of other normal pregnancyin first trimester E55.9 Vitamin D deficiencyPrescriptions as of 01/08/2020 Disp Refills Start End Cholecalciferol (EQL VITAMIN D3) 5* 30 c* 5 12/29/2019 Class: E Prescribing Route: Oral Sig: Take ONE capsule (2,000 Units total) by mouth daily Vit-Fe Fumarate-FA (GO ODS* 30 t* 11 12/29/2019 Class: E Prescribing Route: Oral Sig: Take ONE tablet by mouth dailyAllergies As of Date: 01/06/2020(No Known Allergies)Date Reviewed: 12/29/2019Reviewed by: Jonh Torres FNP - ReviewedLevel of Service:7 2928 OFFIC/OUTPT VISIT E&M EST LOW-MOD SEVER* Histo rical Information ----- ------Family History Problem Relation Age of Onset Hyperlipidemia Mother Hypertension Mother Cancer Father Comments: , lung CAFamily Status - Relation Status Age at Mother FatherSocial History Marital Status: Spouse: Years of Education: # children: Social History Narrative (none)Social History Topics Tobacco Use: Quit Sta rt Date: Comment: occasional use, quit 20 years Alcohol Use: Not Currently Com ment: occasional use Drug Use: Never Sexually Active: Yes Par tners with: Female, Male Control/Protection: Condom, most of the timeImmunizations Administered Influenza, Seasonal, Injec table 05/28/2015 Tdap 05/28/2015 01/21/2019 Name Value Range Interpretation Code Description Data Loyda rce(s) Supporting Document(s ) ID Date Data Source [id number] 01/09/2020 02:42:00 PM EDT [facility] Name Value Range Interpretation Description Data Sup porting Code Source(s) Document(s ) LEAD, <1.0 See Below [facility] BLOOD ug/dL [facility] RANGES FOR LEAD, BLOOD Reference Range (ug/dL) Adult/Child <5.0 Occupational <40.0 NOTE: Lead risk guidelines con form to CDC Guidelines. [facility] is an [facility]-APPROVED lab for lead testing.NOT E: Blood lead levels in the range 5.0-9.9 ug/dL have been associated with adv erse health effects in children aged 6 years and younger.NOTE: All Lead results =/>5. 0 ug/dL are confirmed by repeat analysis.NOTE: Capillary and microtainer blood levels =/>5.0 ug/dL may be due to contamination from lead found on the fin carlos manuel surface and requires confirmation on venous blood.NOTE: This test for LEAD wa s developed and its performance characteristics were determined by [employer]. It has not been cleared by the U.S. Food and Drug Admini stration. The FDA has determined that such clearance or approval is not necess naty. This test is used for clinical purposes. It should not be regarded as investigational or for research. This lab has been approved by CLIA 88 and melissa ignated as a high complexity laboratory and is qualified to perform this test. SAY INFORMATION: ICP-MS ID Date Data Source [id number] 01/08/2020 11:39:00 AM EDT [facility] Name Value Range Interpretation Description Data Sup porting Code Source(s) Document(s ) CULTURE, NO GROWTH NO GROWTH [facility] SITE: URINE ID Date Data Source [id number] 01/07/2020 09:48:00 PM EDT [facility] Name Value Range Interpretation Description Data Sup porting Code Source(s) Document(s ) QUANTIFER NEGATIVE NEGATIVE [facility] ON-TB [facility] SITE: CYTOLOGY NIL 0.06 IU/mL The [facility] SITE: CYTOLOGY TB1 ANTIGEN-NIL VALUE 0.07 IU/ml The [facility] SITE: CYTOLOGY TB2 ANTIGEN-NIL VALUE 0.00 IU/ml [facility] SITE: CYTOLOGY MITOGEN NIL 6.97 IU/ml [facility] SITE: CYTOLOGYComment: NOTE: DIAGNOSIN G OR EXCLUDING TUBERCULOSIS DISEASE, ANDASSESSING THE PROBABILITY OF LTBI, RE QUIRES A COMBINATION OFEPIDEMIOLOGICAL, HISTORICAL, MEDICAL, AND DIAGNOSTIC FIND INGS THATSHOULD BE TAKEN INTO ACCOUNT WHEN INTERPRETING QUANTIFERON-TB GOLD PLUSRES ULTS. SEE GENERAL GUIDANCE ON THE DIAGNOSIS AND TREATMENT OF TBDISEASE ANDLTBI([email or web address]).* NIL TB1-NIL TB2-NIL MITOGEN-NIL QFT [IU/ML] [IU/ML] [IU/ML] [IU/ML] PLUS RESULT </=8.00 (>/=0.35 ANY ANY POSITIVE >/=25%NIL) </=8.00 ANY (>/=0.35 ANY POSIT NAYANA >/=25%NIL) * * </=8.00 <0.35 <0.35 >/=0.50 NEGATIVE OR OR (>/=0.35 (>/=0.35 <25% NIL) <25%NIL) </=8.00 <0.35 <0.35 <0.50 INDETERMINATE OR OR (>/=0.35 (>/=0.35 <25%NIL) <25%NIL) >8.00 ANY ANY ANY INDETERMINATE *NOTE: IN CLINICAL STUDIES, LESS THAN 0.25% OF SUB JECTS HAD INTERFERONGAMMA LEVELS OF >8.0 IU/ML FOR THE NIL CONTROL.NOTE: THE MAGN ITUDE OF THE MEASURED INTERFERON GAMMA LEVEL CANNOT BECORRELATED TO STAGE OR DEGREE O F INFECTION, LEVEL OF IMMUNERESPONSIVENESS OR, LIKELIHOOD FOR PROGRESSION TO ACTIVE DISEASE. APOSITIVE TB RESPONSE IN PERSONS WHO ARE NEGATIVE TO MITOGEN IS RARE, BUT HAS BEEN SEEN IN PATIENTS WITH TB DISEASE. THIS INDICATES THE INTERFERONGAMMA RESPO NSE TO TB ANTIGEN IS GREATER THAN THAT TO MITOGEN, WHICH ISPOSSIBLE THE LEVEL O F MITOGEN DOES NOT MAXIMALLY STIMULATE INTERFERONGAMMA PRODUCTION BY LYMPHOCYTE S. ID Date Data Source [id number] 01/07/2020 05:55:00 PM EDT [facility] Name Value Range Interpretation Description Data Sup porting Code Source(s) Document(s ) RUBELLA 30.5 Immune The ANTIBODIES, [IU]/mL >9.9 [facility] IGG [facility] INTERPRETATION OF RESULTS FOR RUBELLA Ig G ANTIBODY Results (IU/mL) Interpretation < 5.0 Ne gative Non-Immune 5.0 - 9.9 Equivocal Retest > 9.9 Positive Immune NOTE: Results interpreted as EQUIVOCAL indicate a leve l of antibody below the Positive (Immune) cut off. Repeat testing on a ne w specimen is suggested to assess antibody response after a booster shot o r a viral syndrome. ASSAY INFORMATION: Method Chemiluminescence ([employer]) ID Date Data Source [id number] 01/07/2020 04:26:00 PM EDT [facility] Name Value Range Interpretation Description Data Sup porting Code Source(s) Document(s ) CHLAMYDIA NEGATIVE NEGATIVE [place] [facility]: Requests for Chlamydia (CT) and/o r Gonorrhoeae (GC) were processed using the Genprobe Aptima assay which employs an a mplified probe TMA assay. GONORRHEA, UR, RRNA NEGATIVE NEGATIVE The [facility] NOTE: Requests for Chlamydia (CT) and/o r Gonorrhoeae (GC) were processed using the Genprobe Aptima assay which employs an a mplified probe TMA assay. ID Date Data Source [id number] 01/07/2020 10:00:00 AM EDT [facility] Name Value Range Interpretation Code Description Data Loyda rce(s) Supporting Document(s ) RPR Non-Reacti Non-Reacti [facility] ve [facility] ID Date Data Source [id number] 01/07/2020 10:00:00 AM EDT [facility] Name Value Range Interpretation Description Data Sup porting Code Source(s) Document(s ) HCG., 16703.0 See Below [facility] QUANT m[IU]/mL [facility] HCG, SERUM, QUANT Wee ks of Gestation Range (mIU/mL) 3 5.8-71 .2 4 9.5-750.0 5 217.0-7,138.0 6 158.0-31,795.0 7 3,697.0-163,563.0 8 32,065.0-149,571.0 9 63,803.0-15 1,410.0 10 46,509.0-186,977.0 12 27,832.0-210,612.0 14 13,950.0- 62,530.0 15 12,039.0-70,971.0 16 9,040.0-56,451.0 17 8,175.0-5 5,868.0 18 8,099.0-58,176.0 Non - < or=5.2 Postmenopausal < or=7.0 NOT E: Ranges are to be used as guidelines only. Very low results must be interprete d along with other clinical information as indicators of . ID Date Data Source [id number] 01/07/2020 09:07:00 AM EDT [facility] Name Value Range Interpretation Description Data Sup porting Code Source(s) Document(s ) 25-HYDROX 24.8 32.0-100. Below low normal [facility] YVITAMIN ng/mL 0 For [facility] VITAMIN D,25-OH TEST INFORMATION Range (ng/mL) Suggested Interpretation <20.0 Deficient 20.0-31.9 Insufficien t 32.0-100.0 Sufficient >100.0 Possible Adverse Effects ID Date Data Source [id number] 01/07/2020 08:57:00 AM EDT [facility] Name Value Range Interpretation Description Data Sup porting Code Source(s) Document(s ) RUBEOLA( 186.0 Immune [facility] MEASLES) AU/mL >16.4 For Family AB. Health INTERPRETATION OF RESULTS FOR RUBEOLA(ME ASLES)IgG ANTIBODIES Range (AU/mL) Interpretation <13.5 Negat nayana Non-Immune 13.5-16.4 Equivocal Retest > or=16.5 Po sitive Immune Results interpreted as EQUIVOCAL indicate a level of antibodybe low the positive(Immune)cut off. Repeat testing on a newspecimen is suggested to assess antibody response after abooster shot or a viral syndrome. ID Date Data Source [id number] 01/07/2020 07:59:00 AM EDT [facility] Name Value Range Interpretation Description Data Sup porting Code Source(s) Document(s ) VARICELLA 783.0 Immune>1 The ZOSTER, IGG Index 64.9 [facility] INTERPRETATION OF RESULTS FOR VARICELLA IgG ANTIBODIES Range (Index) Interpretation <135.0 Nega tive Non-Immune 135.0-164.9 Equivocal Retest > xk=405.0 Positive Imm une Results interpreted as EQUIVOCAL indicate a level of antibodybelow the positive(Im mune)cut off. Repeat testing on a newspecimen is suggested to assess antibody response after abooster shot or a viral syndrome. ID Date Data Source [id number] 01/07/2020 05:52:00 AM EDT [facility] Name Value Range Interpretation Description Data Sup porting Code Source(s) Document(s ) AB. Negative Negative [facility] SCREEN/IND [facility] . [facility] ID Date Data Source [id number] 01/07/2020 05:45:00 AM EDT [facility] Name Value Range Interpretation Code Description Data Loyda rce(s) Supporting Document(s ) ABO/RH A Pos [facility] TYPE [facility] ID Date Data Source [id number] 01/07/2020 04:53:00 AM EDT [facility] Name Value Range Interpretation Description Data Sup porting Code Source(s) Document(s ) HEP C AB. <0.02 <0.80 The S/CO RATIO [facility] HEPATITIS C Non-React Non-Reac The ANTIBODY nayana tive [facility] ID Date Data Source [id number] 01/07/2020 04:41:00 AM EDT [facility] Name Value Range Interpretation Description Data Sup porting Code Source(s) Document(s ) HIV 1/2 Non-React Non-React [facility] AB[facility] Assay Information: Assay for the detecti on of HIV p24 antigen and antibodies to Human Immunodeficiency Virus Type 1,including Group O (HIV-1 + "O") and/or T ype 2 (HIV-2) Method: Chemiluminescence ([employer]) ID Date Data Source [id number] 01/07/2020 04:18:00 AM EDT [facility] Name Value Range Interpretation Description Data Sup porting Code Source(s) Document(s ) SPECIFIC 1.015 NA 1.003-1.03 The GRAVITY, UR 0 [facility] (S.G.) [facility] PH, UR 6.5 NA 5.0-8.0 [facility] PROTEIN, NEGATIVE NEGATIVE The TOTAL, RANDOM [facility] URINE [facility] GLUCOSE, NEGATIVE NEGATIVE The URINE, QUAL. [facility] KETONE, QUAL. NEGATIVE NEGATIVE [facility] UROBILINOGEN 0.2 mg/dL 0.2-1.0 [facility] BILIRUBIN, NEGATIVE NEGATIVE The [facility] BLOOD, URINE NEGATIVE NEGATIVE [facility] NITRITE, UR NEGATIVE NEGATIVE The (NI) [facility] CRYSTALS NONE NONE [facility] WBC, URINE 0-4 /[HPF] 0-4 [facility] RBC, URINE NONE SEEN NONE SEEN The /[HPF] [facility] CAST, RBC, NONE SEEN 0-1 The URINE /[LPF] [facility] CAST, HYALINE, 0-4 /[LPF] 0-4 The [facility] CAST, FEW NONE-FEW The EPITHELIAL, [facility] URINE [facility] CAST, NONE SEEN 0-1 The GRANULAR, /[LPF] [facility] URINE [facility] BACTERIA, NONE NONE-FEW The [facility] CRYSTALS, NONE NONE The OTHER, URINE /[HPF] [facility] LEUKOCYTE NEGATIVE NEGATIVE The ESTERASE [facility] COLOR YELLOW YELLOW, The STRAW, [facility] SONIA [facility] CHARACTER CLEAR CLEAR [facility] ID Date Data Source [id number] 01/07/2020 04:11:00 AM EDT [facility] Name Value Range Interpretation Description Data Sup porting Code Source(s) Document(s ) HEPATITIS B Non-React Non-Reac The SURFACE nayana tive [facility] ANTIGEN [facility] Hepatitis B Result Inte rpretation (for reference use only) Marker L I/EA* Acute Past Chronic HBV Vacc. HBsAg + + - + -HBeAg + + - +/- -HEP.B.CORE AB,IgM - + - - -HEP.B.CORE AB. - + + + -HBeAb - - +/- +/- -HBsAb - - +/- - +*Late Incubation/Early Acute NOTE: In remote p ast infection, HBsAb level may be Negative or Non-Reactive in some patients. ID Date Data Source [id number] 01/07/2020 02:43:00 AM EDT [facility] Name Value Range Interpretation Description Data Sup porting Code Source(s) Document(s ) WHITE BLOOD 8.31 4.00-10. The CELL (WBC) x10(3)/u 10 [facility] COUNT L [facility] RED BLOOD CELL 4.93 3.58-5.1 The (RBC) COUNT x10(6)/u 9 [facility] HEMOGLOBIN 12.8 11.0-15. The g/dL [address] [place] [address] HEMATOCRIT 39.7 % 31.5-44. The [facility] MCV 80.5 fL 78.0-98. The 0 [facility] MCH 26.0 pg 25.2-32. The 6 [facility] MCHC 32.2 31.0-34. The g/dL 7 [facility] RDW 16.0 % 12.0-15. Above high normal The 5 [facility] POLYS 58.9 % 37.1-78. The 1 [facility] LYMPHOCYTES 26.7 % 13.7-50. The 9 [facility] MONOCYTES 5.8 % 3.0-11.9 [facility] EOSINOPHILS 7.8 % 0.0-5.0 Above high normal [facility] BASOPHILS 0.4 % 0.0-1.0 [facility] IMMATURE 0.4 % 0.0-1.0 The GRANULOCYTES [facility] PLATELETS 269 140-425 The x10(3)/u [facility] MPV 11.2 fL 8.6-12.1 [facility] ID Date Data Source [id number] 01/07/2020 02:11:00 AM EDT [facility] Name Value Range Interpretation Description Data Sup porting Code Source(s) Document(s ) GC CULTURE ALT. TEST The ONLY PERFORMED [facility] ALTERNATE TEST PERFORMED; NOTE: A TEST H BEEN CHANGED BASED UPON THESPECIMEN TYPE RECEIVED. 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 Exam [50]Vitals (Last Filed):BP 110/68 (Orthostatic Site : Arm - Left, Orthosta tic Pos- ition : Sitting, Orthostatic Cuff Size : Adult) Pulse 6- 1 Temp 98.5 F (36.9 C) (Oral) Resp 16 Ht 5 8.5" - (1.74 m) Wt 161 lb (73 kg) LMP 01/05/2019 SpO2 99% - BMI 24.12 kg/k7PngqrbgzjfRomina mcgee 01/21/2019 1:30 PM SignedI have identified this patient to be Janie Mcneil, -1980.Cindy f ComplaintPatient presents with Physical CLINICAL DOCUMENTATION IMPROVEMENT SPECIALIST ExamBP 110/68 (Orthostatic Site : Arm - Left, O rthostatic Position : Sitting,Orthostatic Cuff Size : Adult) | Pulse 61 | Temp 98.5 F (36.9 C) (Oral) |Resp 16 | Ht 5 8.5" (1.74 m) | Wt 161 lb (73 kg) | LMP 01/05/2019 | EkU158% | BMI 24.12 kg/mPain 0/5ARELAbdifatah SEO at rust today to have blood adrian wn. 1 sst, 1 lavender,urine, thin prep, gc/chlamydia probe tubes sent to [facility]. etolerated the procedure well and will return to the clinic for results.Jonh Torres, ANGELLA 01/21/2019 1:30 PM SignedSUBJECTIVE:Janie Mcneil is a 38 year old female, presents annual exam . Also expressesinterest in contraceptive, preferable oral. I have reviewed the patient smedic al history in detail and updated the computerized patient record.Present illness: nonePAST MEDICAL HISTORY: No past medical history on file.SURGERIES: No past surgical history on file.ALLERGIES: No Known AllergiesCURRENT MEDICATIONS:No current outpatient medications on file.No curren t facility-administered medications for this visit.FAMILY HISTORY:Family HistoryProblem Relation A ge of Onset Hyperlipidemia Mother Hypertension Mother Cancer Father , lung CASOCIA L HISTORY:Social HistoryTobacco Use Smoking status: Former Smoker Types: Cigarettes Smokel ess tobacco: Never Used Tobacco comment: occasional use, quit 20 yearsSubstance Use Topics Alcoh ol use: Yes Comment: occasional useSEXUAL ACTIVITY: reports that she currently engages in se Debt Resolveal activity and hashad partners who are Female and Male. She reports using the following method o fbirth control/protection: Condom, most of the time.SOCIAL DOCUMENTATION:Social HistorySocial Histo ry Narrative Not on file Review Of SystemsConstitutional: noneEyes: negativ eEars/Nose/Throat: negativeRespiratory: negativeCardiovascular: negativeGastroi ntestinal: negativeGenitourinary: negativeEndocrine: negativeHematologic/Lymphatic/Immunologi c: negativeNeurologic: negativePsychiatric: negativeMusculoskeletal: negativeSkin: negativeWomen: regular menstrual cycleOBJECTIVE:EXAM:BP 110/68 (Orthostatic Site : Arm - Left, O rthostatic Position : Sitting,Orthostatic Cuff Size : Adult) | Pulse 61 | Temp 98.5 F (36.9 C) (Oral) |Resp 16 | Ht 5 8.5" (1.74 m) | Wt 161 lb (73 kg) | LMP 01/05/2019 | [id number]% | BMI 24.12 kg/mThe patient appears well, in no apparent distress. Alert and oriented timesthree , pleasant and cooperative. Vital signs are as noted by the nurse.Physical Examination:General a ppearance - alert, well appearing, and in no distressMental status - alert, oriented to person, place, and timeEyes - pupils equal and reactive, extraocular eye movements inta ctEars - bilateral TM s and external ear canals normalNose - normal and patent, no erythema, discha rge or polypsMouth - mucous membranes moist, pharynx normal without lesionsNeck - supple, no significant adenopathyLymphatics - no palpable lymphadenopathy, no hepatosplenomegalyCh est - clear to auscultation, no wheezes, rales or rhonchi, symmetric air entryHeart - normal rate, regular rhythm, normal S1, S2, no murmurs, rubs, clicks orgallopsBreasts: breasts appear normal, no suspicious masses, no skin or nipple changesor axillary nodes.Abdomen - soft, nontender , nondistended, no masses or organomegalyBack exam - full range of motion, no tenderness, palpable spasm or pain onmotionNeurological - alert, oriented, normal speech, no focal findings or move mentdisorder notedMusculoskeletal - no joint tenderness, deformity or swellingExtremities - perip heral pulses normal, no pedal edema, no clubbing or cyanosisSkin - multiple skin tattoos, an d cystic acne of facePelvic - normal external genitalia, vulva, vagina, cervix, uterus and adnexa ASSESSMENT/PLAN:(Z00.00) Routine general medical examination at a health care facility(pr imary encounter diagnosis)Comment:Plan: CBC WITH DIFFERENTIAL AND PLATELETS, TSH, HIGH SENSITIVITY (SERUM), COMP METABOLIC PANEL, HGA1C (HGB GLYCOSYLATED), LIPID PANEL, UR INALYSIS (COMPLETE), 25 HYDROXY VITAMIN D(Z23) Need for prophylactic vaccination with combineddi vndkmnab-nkzoexv-zyagwfoph (DTP) vaccineComment:Plan: TDAP VACCINE 7 YRS/> IM(Z71.7) Encounter for human immunodeficiency virus (HIV) counselingComment:Plan: HIV 1 & 2(Z11.4) Encounter for screening for HIVComment: negative result reviewedPlan: HIV 1 & 2(Z12.4) Screening for malignant neoplas m of cervixComment:Plan: THINPREP AND HPV(Z11.3) Screening examination for venereal diseaseComment: Plan: GC/CHLAMYDIA, SWAB SPECIMEN (BIOREFERENCE ONLY)(Z30.011) Encounter for initial pre scription of contraceptive pillsComment: reviewedPlan: Norgestimate-Ethinyl Estradiol (ORTHO TRI-CYCLEN LO) 0.18/0.215/0.25 MG-25 MCG Oral Tab(L70.0) Acne vulgarisComment: reviewe dPlan: Norgestimate-Ethinyl Estradiol (ORTHO TRI-CYCLEN LO) 0.18/0.215/0.25 MG-25 MCG Oral TabPatient has a primary dentist? Yes, confirmed primary dentist with Mika borregont s last dental visit? 6 months -1 year agoPatient was referred to dentistry? Not applicable, p atient is up-to-date withdental screeningCharlene Joseph RN 01/21/2019 1:30 PM SignedI have esha ntified this patient to be Janie Mcneil [facility] -1980.I have identified this patient to be Blanca Mcneil, [facility] -1980.TDAP vaccine/s administered as per provider Dr. Rincon s order. See vac cineimm/inj section.Patient Communication and Education AssessmentLearner: PatientLearning Needs reviewed: Immunizations: YesBarriers: NoneTeaching Methods: Lecture/ 1:1 DiscussionVerbaliz ed Understanding: Communicates/understandsFollow up plan: return with any concernsSignature: Cori Link RNAbreu, Elizabeth 01/21/2019 1:30 PM SignedI have identified this p atient to be Janie Mcneil [facility] - 1980.Results for orders placed or performed in visit on 0 01/21/19HIV 1 & 2Result Value Ref Range HIV I & II - INVALID HIV I & II - NON REACTIVE non-re active HIV I & II - PRELIMINARY REACTIVE HIV KIT LOT # [id number] HIV KIT EXP DATE 1Pri rob Diagnosis:Z00.00 Routine general medical examination at a health care facility Other Diagnoses:Z23 Need for prophylactic vaccination with combined kkgqiunarz-cpkxlvc-gpaccgxrn (DTP) vaccine Z71.7 Encounter for human immunodeficiency virus (HIV)counseling Z11.4 Encounter for screening fo r HIV Z12.4 Screening for malignant neoplasm of cervix Z11. 3 Screening examination for venereal disease Z30.011 Encounter for initial p rescription of contraceptivepills L70.0 Acne vulgarisPrescriptions as of 01/21 Disp Refills Start End * Norgestimate-Ethinyl Estradiol (OR* 28 t * 5 01/21/2019 Class: E Prescribing Route: Oral Sig: Take ONE tablet by mouth da corazon (begin the first Thursday of your menses)Allergies As of Date: 01/21/2019(No Known Allergies)Date Reviewed: 01/21/2019Reviewed by: Jonh Torres FNP - ReviewedLevel of Service:92335 [facility] E&M ESTAB PT; 18-39 YR Historical Information Family History Problem Relation Age of Onset

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
[2020-05-17 02:26] VITALS: BP 112/69; PULSE 72; TEMP 98.1
== END 2020-05-17 00:25 | disposition home or self-care (01) ==
LOC: JER 20:57
DX: Z04.3 Encounter for examination and observation following other accident (principal); Z3A.26 26 weeks gestation of pregnancy
CPT/HCPCS: 86850; 86900; 86901; 99284-25

== ENCOUNTER 2020-07-23 21:56 | Emergency (ER) | payer OTHER ==
[2020-07-23 22:08] VITALS: BMI 29.5
[2020-07-24 00:17] VITALS: BP 108/67; PULSE 93; TEMP 98.2
== END 2020-07-24 00:36 | disposition home or self-care (01) ==
LOC: JER 21:56
DX: O26.893 Other specified pregnancy related conditions, third trimester (principal)
CPT/HCPCS: 99282-25

== ENCOUNTER 2023-02-19 00:23 | Emergency (ER) | payer OTHER ==
[2023-02-19 00:43] VITALS: BP 117/77; PULSE 97; RESP 20; TEMP 98.3; BMI 26.4
[2023-02-19 00:49] LABS: HCG,QUALITATIVE URINE Positive
[2023-02-19 01:02] LABS: EPI CELLS >36 /uL (0-25.1); HYALINE CASTS 1 /uL (0-3.1); PH,URINE 6.5 (5.0-8.0); URINE APPEARANCE CLEAR; URINE BACTERIA 46 /uL (0-1359); URINE BILIRUBIN NEGATIVE (NEGATIVE); URINE COLOR YELLOW; URINE GLUCOSE (UA) NEGATIVE (NEGATIVE); URINE KETONE NEGATIVE (NEGATIVE); URINE LEUK ESTERASE 3+ (NEGATIVE); URINE NITRITE NEGATIVE (NEGATIVE); URINE PROTEIN NEGATIVE (NEGATIVE); URINE RBC 14 /uL (0-23.9); URINE UROBILINOGEN 0.2 mg/dL (0.2-1.0); URINE WBC 36 /uL (0-25.8)
[2023-02-19] MEDS ORDERED: CEPHALEXIN MONOHYDRATE 500 MG CAPSULE (UD) PO ONE (01:35)
[2023-02-19] MEDS ORDERED: ACETAMINOPHEN 325 MG TABLET (FP) PO ONE (01:35)
[2023-02-19] MEDS ORDERED: CEPHALEXIN MONOHYDRATE 500 MG CAPSULE (UD) ONE (01:41)
[2023-02-19] MEDS ORDERED: ACETAMINOPHEN 325 MG TABLET (FP) ONE (01:42)
== END 2023-02-19 03:18 | disposition home or self-care (01) ==
LOC: JER 00:23
DX: O23.11 Infections of bladder in pregnancy, first trimester (principal); N30.01 Acute cystitis with hematuria; Z3A.08 8 weeks gestation of pregnancy
CPT/HCPCS: 76817-TC; 81003; 84703; 87086; 99284-25

== ENCOUNTER 2023-12-11 07:13 | Emergency (ER) | payer OTHER ==
[2023-12-11 08:07] VITALS: BP 118/79; PULSE 87; RESP 18; TEMP 98; BMI 28.4
[2023-12-11] MEDS ORDERED: CEPHALEXIN MONOHYDRATE 500 MG CAPSULE (UD) ONE (08:32)
[2023-12-11] MEDS: CEPHALEXIN MONOHYDRATE 500 MG CAPSULE (UD) PO ONE (08:34)
== END 2023-12-11 09:00 | disposition home or self-care (01) ==
LOC: FER 07:13
PROC: 0HQFXZZ Repair Right Hand Skin, External Approach (ICD-10-PCS; principal; 2023-12-11)
DX: S61.216A Laceration without foreign body of right little finger without damage to nail, initial encounter (principal); W26.0XXA Contact with knife, initial encounter; Y93.G3 Activity, cooking and baking
CPT/HCPCS: 99283-25

== ENCOUNTER 2023-12-25 22:42 | Emergency (ER) | payer OTHER ==
[2023-12-25 22:59] VITALS: BP 112/80; PULSE 80; RESP 18; TEMP 99.3; BMI 21.2
== END 2023-12-25 23:13 | disposition home or self-care (01) ==
LOC: FER 22:42
DX: Z48.01 Encounter for change or removal of surgical wound dressing (principal); L53.9 Erythematous condition, unspecified
CPT/HCPCS: 99283-25

== ENCOUNTER 2024-03-06 16:06 | Emergency (ER) | payer OTHER ==
[2024-03-06 16:10] VITALS: BP 145/92; PULSE 94; RESP 18; TEMP 98.8; BMI 27.3
[2024-03-06] MEDS: morphine SULFATE 4 MG/ML VIAL IVPUSH ONE (17:21)
[2024-03-06] MEDS: morphine CARPU-JECT 2 MG/1 ML DISP.SYRIN IVPUSH ONE (17:24)
[2024-03-06] MEDS ORDERED: KETOROLAC TROMETHAMINE 15 MG/ML VIAL ONE (17:29)
[2024-03-06] MEDS ORDERED: CEFAZOLIN SODIUM 2 GM VIAL ONE (17:29)
[2024-03-06] MEDS: KETOROLAC TROMETHAMINE 15 MG/ML VIAL IVPUSH ONE (17:43)
[2024-03-06] MEDS: CEFAZOLIN SODIUM 2 GM in DEXTROSE 5%-WATER 100 ML IVPB ONE (17:43)
== END 2024-03-06 18:41 | disposition home or self-care (01) ==
LOC: JER 16:06
PROC: 0YQCXZZ Repair Right Upper Leg, External Approach (ICD-10-PCS; principal; 2024-03-06)
PROC: 3E03329 Introduction of Other Anti-infective into Peripheral Vein, Percutaneous Approach (ICD-10-PCS; 2024-03-06)
PROC: 3E0333Z Introduction of Anti-inflammatory into Peripheral Vein, Percutaneous Approach (ICD-10-PCS; 2024-03-06)
DX: S71.111A Laceration without foreign body, right thigh, initial encounter (principal); W26.9XXA Contact with unspecified sharp object(s), initial encounter
CPT/HCPCS: 99284-25

== ENCOUNTER 2024-12-17 17:08 | Emergency (ER) | payer OTHER ==
[2024-12-17 17:15] VITALS: TEMP 98.4; BMI 27.3
[2024-12-17] MEDS ORDERED: ACETAMINOPHEN INJECTION 100 ML ONE (18:33)
[2024-12-17] MEDS: SODIUM CHLORIDE 0.9% 500 ML INFUS.BAG IV ONE (18:47)
[2024-12-17] MEDS: ACETAMINOPHEN 1000 MG/100 ML BAG IVPB ONE (18:47)
[2024-12-17 18:57] LABS: ABSOLUTE IMMATURE GRANULOCYTES 0.02 x10^3/uL (0.0-0.031); BASOPHILS # 0.03 x10^3/uL (0.01-0.08); EOSINOPHIL % 1.9 % (0.7-5.8); EOSINOPHILS # 0.16 x10^3/uL (0.04-0.36); HEMATOCRIT 39.8 % (34.1-44.9); HEMOGLOBIN 12.5 g/dL (11.2-15.7); MCHC 31.4 g/dl (32.2-35.5); MONOCYTE # 0.62 x10^3/uL (0.24-0.86); MONOCYTE % 7.3 % (4.7-12.5); PLATELET COUNT 254 x10^3/uL (182-369); RDW 13.1 % (12.2-17.1)
[2024-12-17 19:21] LABS: POTASSIUM 4.3 mmol/L (3.5-5.1)
[2024-12-17 19:23] LABS: ALBUMIN 3.7 g/dl (3.4-5.0); BLOOD UREA NITROGEN 13.1 mg/dL (7-18); CALCIUM 9.7 mg/dL (8.5-10.1)
[2024-12-17 19:26] LABS: CREATININE 0.7 mg/dL (0.55-1.3)
[2024-12-17 19:28] LABS: BILIRUBIN,TOTAL 0.2 mg/dL (0.2-1); TOT PROT 7.2 g/dl (6.4-8.2)
[2024-12-17] MEDS ORDERED: KETOROLAC TROMETHAMINE 30 MG/1 ML VIAL ONE (19:55)
[2024-12-17] MEDS: KETOROLAC TROMETHAMINE 30 MG/1 ML VIAL IVPUSH ONE (20:18)
[2024-12-17 20:20] VITALS: BP 121/77; PULSE 65; RESP 15
== END 2024-12-17 20:52 | disposition home or self-care (01) ==
LOC: JER 17:08
PROC: 3E033NZ Introduction of Analgesics, Hypnotics, Sedatives into Peripheral Vein, Percutaneous Approach (ICD-10-PCS; principal; 2024-12-17)
PROC: 3E0333Z Introduction of Anti-inflammatory into Peripheral Vein, Percutaneous Approach (ICD-10-PCS; 2024-12-17)
DX: R07.2 Precordial pain (principal)
CPT/HCPCS: 36415; 71046-TC-FY; 80053; 84484; 85025; 85379; 93005; 93010; 99285-25; J0131

== ENCOUNTER → 2024-12-21 | Day surgery (SDC) | payer OTHER | END | disposition home or self-care (01) | LOC: JRADUS-SUR 11:24 | PROVIDERS: ATTEND Obstetrics & Gynecology | PROC: 0HBU3ZX Excision of Left Breast, Percutaneous Approach, Diagnostic (ICD-10-PCS; principal; 2024-12-21) | DX: N60.32 Fibrosclerosis of left breast (principal) | CPT/HCPCS: 19083; A4648; 76942-TC; 77065-TC; 87899; 88305-TC ==